=== PATIENT | female | born 2000 | race Caucasian/White ===

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

== ENCOUNTER → 2022-09-16 16:29 | Outpatient (CLI) | payer OTHER, SELFPAY ==
[2022-09-18 08:18] LABS: Progesterone 9.4 ng/mL (.)
== END ==
PROVIDERS: PCP Pediatrics; Visit Provider Obstetrics & Gynecology
DX: N97.9 Female infertility, unspecified (principal)
CPT/HCPCS: 36415; 84144

== ENCOUNTER → 2022-10-18 11:46 | Outpatient (CLI) | payer OTHER, SELFPAY ==
[2022-10-18 14:09] LABS: HCG,Quantitative 23 mIU/ml (0-5.42)
== END ==
PROVIDERS: PCP Pediatrics; Visit Provider Obstetrics & Gynecology
DX: N92.6 Irregular menstruation, unspecified (principal); Z32.00 Encounter for pregnancy test, result unknown
CPT/HCPCS: 36415; 84702

== ENCOUNTER → 2022-10-25 07:17 | Outpatient (CLI) | payer OTHER, SELFPAY ==
[2022-10-25 08:19] LABS: HCG,Quantitative 605 mIU/ml (0-5.42)
== END ==
PROVIDERS: PCP Pediatrics; Visit Provider Obstetrics & Gynecology
DX: Z34.90 Encounter for supervision of normal pregnancy, unspecified, unspecified trimester (principal)
CPT/HCPCS: 36415; 84702

== ENCOUNTER 2022-11-08 13:55 | Emergency (ER) | payer OTHER, SELFPAY ==
[2022-11-08 14:15] VITALS: BP 148/82; PULSE 117; RESP 20; TEMP 37; O2SAT 97; BMI 37.1
[2022-11-08 14:30] LABS: Microscopic, Urine URINE MICROSCOPIC (MICROSCOPIC)
[2022-11-08 14:35] LABS: Appearance,Urine CLEAR (Clear); Bilirubin,Urine Negative (Negative); Blood, Urine 1+ (Negative); Color,Urine YELLOW (Yellow); Glucose,Urine (UA) Negative (Negative); Ketones,Urine Negative (Negative); Leukocyte Esterase,Urine 1+ (Negative); Nitrate,Urine Negative (Negative); Protein,Urine Negative (Negative); Urobilinogen,Urine 0.2 EU/dl (0.2)
[2022-11-08 14:36] LABS: Urine Pregnancy, HCG Qual. Positive (Negative)
--- NOTE | 2022-11-08 14:39 | PC.NURSE ---
ZARINA KITCHEN at for patient eval
--- NOTE | 2022-11-08 14:43 | US_ITS ---
FINAL REPORT TECHNIQUE: Transvaginal ultrasound imaging of the pelvis was obtained. 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 Two intrauterine gestational sacs are seen in the right cornu. One gestational sac contains a pole with crown-rump length of 5.8 mm consistent with 6 weeks 3 days gestation. Heart rate is identified at 134 beats per minute. The 2nd gestational sac demonstrates no yolk sac or pole consistent with blighted ovum or failed . There is a 1.5 cm right ovarian cyst. There is no free fluid. IMPRESSION: Two gestational sacs within the right cornu with a single, living intrauterine identified. Reviewed, Interpreted and Dictated by Allen Higgins III, MD Transcribed by Radha Dunn Authenticated and [facility]
--- NOTE | 2022-11-08 14:45 | PC.NURSE ---
RADIOLOGY NOTIFIED OF US
--- NOTE | 2022-11-08 14:50 | PC.NURSE ---
PT TO RADIOLOGY AT THIS TIME
--- NOTE | 2022-11-08 14:52 | PC.NURSE ---
PT TRANSPORTED TO ULTRASOUND VIA WHEELCHAIR.
--- NOTE | 2022-11-08 15:12 | HMH.EDGENADL ---
Discharge Plan Disposition Patient Disposition: Home, Self-Care Condition: Good Prescriptions Prescriptions: New cefdinir 300 mg capsule 300 mg PO BID 5 Days Qty: 10 0RF No Action Classic 28 mg iron- 800 mcg tablet 1 tab PO DAILY Qty: 90 2RF nystatin 30 GM cream 1 applicatio topical BID 14 Days Qty: 1 2RF Referrals Follow up/Referrals: Mingo Limon [Primary Care Provider] - See instructions Clinical Impressions Clinical Impression: Instructions Patient Instructions: Early Bleeding Discharge ED Provider: Ja Garibay General Adult HPI General Chief complaint: Vaginal Bleeding Stated complaint: cramping, approx 8 weeks Time Seen by Provider: 11/08/22 14:20 Mode of Arrival: Ambulatory Source of Information: Patient Limitations: No Limitations Description of Symptoms (Recalled from ER Triage Doc. by RN): PT STATES SHE WOKE UP WITH CRAMPING IN HER LOWER ABDOMINAL REGION, DENIES ANY VAGINAL BLEEDING BUT STATES HER DISCHARGE IS DARKER THAN NORMAL, THINKS SHE'S AROUND 8-9 WEEKS , LAST KNOWN PERIOD 09/26/22 History of Present Illness HPI narrative: Patient is a 22-year-old female with a history of a bicornate uterus who presents with concern for cramping. She is a . She thinks that she is around 8 to 9 weeks . She says that she woke up this morning with some lower abdominal cramping. She denies any new vaginal bleeding but noted that some discharge was darker than normal. She locates the cramping in her suprapubic region. Does not radiate from there. No dysuria. No nausea or vomiting. No diarrhea. No fever or chills. Related Data Previous Rx's Medication Instructions Recorded nystatin 100,000 unit/gram topical 1 applicatio topical BID 14 days 03/08/21 cream #1 tube vits no.126-ferrous fum 1 tab PO DAILY #90 tabs 01/18/22 28 mg iron-folic acid 800 mcg tablet (Classic ) cefdinir 300 mg capsule 300 mg PO BID 5 days #10 caps 11/08/22 Allergies Allergy/AdvReac Type Severity Reaction Status Date / Time No Known Allergies Allergy Verified 09/16/22 14:11 [facility] Disclaimer: The information contained in this section may have been updated after the patient was seen, as this information can be updated by other users. Medical History (Updated 11/08/22 @ 17:23 by Ja Garibay MD) Bicornuate uterus Infertility Social History Smoking Status: Never smoker alcohol intake: never current occupational status: employed Travel in the last 8 weeks: None ROS Obtained: Yes All systems reviewed & no additional complaints except as documented A 14 point review of system was obtained and otherwise negative except per HPI Physical Exam General General appearance: alert and in no apparent distress Head Head exam: atraumatic, normocephalic and normal inspection Eye Eye exam: Present normal appearance, PERRL and EOMI ENT ENT exam: Present normal exam, normal oropharynx, mucous membranes moist, TM's normal bilaterally and normal external ear exam Neck Neck exam: Present normal inspection, full ROM and trachea midline; Absent meningismus or lymphadenopathy Chest Chest inspection: Present normal inspection and symmetric chest wall rise; Absent tenderness Respiratory Respiratory exam: Present normal lung sounds bilaterally; Absent respiratory distress Cardiovascular Cardiovascular exam: Present regular rate and normal rhythm; Absent JVD Abdominal Exam Abdominal exam: Present soft, tenderness and normal bowel sounds; Absent distention or guarding Abdominal tenderness: Present suprapubic Extremities Exam Extremities exam: Present normal inspection, full ROM and normal capillary refill; Absent calf tenderness Back Exam Back exam: Present normal inspection; Absent tenderness Neurological Exam Neurological exam: Present alert and oriented X3
--- NOTE | 2022-11-08 15:29 | PC.NURSE ---
PT RETURNED FROM ULTRASOUND.
--- NOTE | 2022-11-08 15:32 | PC.NURSE ---
PT RETURNED FROM RADIOLOGY, DR. TOMPKINS AT BEDSIDE
[2022-11-08 15:44] LABS: Bacteria,Urine Trace /lpf; RBC,Urine Occasional #/hpf (0-3)
[2022-11-08 15:53] VITALS: BP 122/63; PULSE 119; O2SAT 100
--- NOTE | 2022-11-08 15:56 | PC.NURSE ---
PROVIDED PT WITH WARM BLANKET.
--- NOTE | 2022-11-08 15:58 | PC.NURSE ---
CALLED LAB TO LET THEM KNOW PT IS BACK FROM ULTRASOUND SO THEY CAN COME DOWN AND DRAW HER BLOOD.
[2022-11-08 16:00] VITALS: BP 109/58; PULSE 92; O2SAT 99
--- NOTE | 2022-11-08 16:17 | PC.NURSE ---
LAB AT BEDSIDE
[2022-11-08 16:30] VITALS: BP 103/60; PULSE 97; O2SAT 98
[2022-11-08 17:00] VITALS: BP 101/51; PULSE 92; O2SAT 99
[2022-11-08 17:39] VITALS: BP 117/51; PULSE 99; RESP 17; TEMP 36.7; O2SAT 98
== END 2022-11-08 17:40 | disposition home or self-care (01) ==
PROVIDERS: Emergency Provider Student in an Organized Health Care Education/Training Program; PCP Pediatrics
DX: O20.9 Hemorrhage in early pregnancy, unspecified (principal); Z3A.08 8 weeks gestation of pregnancy; Q51.3 Bicornate uterus
CPT/HCPCS: 36415; 76817; 81001; 81025; 86900; 86901; 87086; 99284

== ENCOUNTER → 2022-11-12 12:52 | Outpatient (CLI) | payer OTHER, SELFPAY ==
--- NOTE | 2022-11-12 12:52 | US_ITS ---
FINAL REPORT CLINICAL HISTORY: for dates COMPARISON: November 08, 2022 FINDINGS: Sonographic images of the pelvis were obtained. Two gestational sacs are present in the uterus. No pole is identified in 1 of the sacs consistent with a failed . A single, living intrauterine is noted in the 2nd gestational sac. A yolk sac is present and measures 0.42 cm. [place] to rump length measures 9.7 cm which corresponds to 7 weeks 1 days gestation. Heartbeat is identified and measures 149 beats per minute. The right ovary measures 3.2 cm with a 1.5 cm cyst. The left ovary measures 2.7 cm with small follicles. Note is made of a bicornuate uterus as a variant. IMPRESSION: Two gestational sacs present with a single, living, intrauterine gestation within 1 of the sacs with 7 weeks 1 days gestational age. Findings are similar to the prior exam. Reviewed, Interpreted and Dictated by Allen Higgins III, MD Transcribed by Margarita Jain Authenticated and [facility]
== END ==
PROVIDERS: PCP Pediatrics; Visit Provider Obstetrics & Gynecology
DX: Z34.90 Encounter for supervision of normal pregnancy, unspecified, unspecified trimester (principal)
CPT/HCPCS: 76801

== ENCOUNTER → 2022-11-12 16:31 | Outpatient (CLI) | payer OTHER, SELFPAY ==
[2022-11-16 04:13] LABS: Neisseria gonorrhoeae, NAA Negative (Negative)
== END ==
PROVIDERS: Visit Provider Obstetrics & Gynecology
DX: Z34.90 Encounter for supervision of normal pregnancy, unspecified, unspecified trimester (principal)
CPT/HCPCS: 87491; 87591

== ENCOUNTER → 2022-11-26 12:35 | Outpatient (CLI) | payer OTHER, SELFPAY ==
--- NOTE | 2022-11-26 12:36 | US_ITS ---
FINAL REPORT CLINICAL HISTORY: 2 week follow up COMPARISON: November 12, 2022 FINDINGS: TRANSABDOMINAL ULTRASOUND, Two gestational sacs are present. One of the gestational sacs does not have a yolk sac or pole consistent with failed , stable. No other yolk sac as a pole with crown-rump length of 22 mm consistent with 8 weeks 6 days gestation. A heartbeat is confirmed at 179 beats per minute. Note is made of a bicornuate uterus. IMPRESSION: Single living IUP with estimated gestational age of 8 weeks 6 days days. Second gestational sac empty consistent with failed . Reviewed, Interpreted and Dictated by Allen Higgins III, MD Transcribed by Jg Marsh Authenticated and [facility]
== END ==
PROVIDERS: PCP Pediatrics; Visit Provider Obstetrics & Gynecology
DX: Q51.3 Bicornate uterus (principal)
CPT/HCPCS: 76801

== ENCOUNTER 2022-11-27 11:37 | Emergency (ER) | payer OTHER, SELFPAY ==
--- NOTE | 2022-11-27 13:04 | EXP.UTC ---
Discharge Plan Disposition Patient Disposition: Home, Self-Care Condition: Good Prescriptions Prescriptions: No Action Classic 28 mg iron- 800 mcg tablet 1 tab PO DAILY Qty: 90 2RF buspirone 10 mg tablet 10 mg PO BID loratadine 10 mg tablet 10 mg PO DAILY escitalopram oxalate [Lexapro] 20 mg tablet 20 mg PO DAILY ondansetron 8 mg tablet,disintegrating 8 mg PO Q12H PRN (Reason: nausea and vomiting) Qty: 30 2RF Referrals Follow up/Referrals: Mingo Limon [Primary Care Provider] - See instructions Activity Restrictions/Add. Instructions Additional Instructions/Restrictions: Drink plenty of fluids. Take tylenol for pain or fever. Follow up with your regular doctor. 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 Clinical Impressions Clinical Impression: Acute viral syndrome Stand Alone Forms Stand Alone Forms: Work/School Release Instructions Patient Instructions: DI for Viral Syndrome Discharge ED Provider: Dustin Aguila [facility] HPI General Stated complaint: Fever,Cough Time Seen by Provider: 11/27/22 13:04 History of Present Illness Provider Complaint: She c/o fever, chills, and a cough for the past 1 day. She is 9 weeks . She denies shortness of breath, but she does have a history of asthma. Related Data Home Medications Medication Instructions Recorded Confirmed buspirone 10 mg tablet 10 mg PO BID 11/12/22 11/12/22 escitalopram oxalate 20 mg tablet 20 mg PO DAILY 11/12/22 11/12/22 (Lexapro) loratadine 10 mg tablet 10 mg PO DAILY 11/12/22 11/12/22 Previous Rx's Medication Instructions Recorded vits no.126-ferrous fum 1 tab PO DAILY #90 tabs 01/18/22 28 mg iron-folic acid 800 mcg tablet (Classic ) ondansetron 8 mg disintegrating 8 mg PO Q12H PRN nausea and 11/12/22 tablet vomiting #30 tabs Allergies Allergy/AdvReac Type Severity Reaction Status Date / Time No Known Allergies Allergy Verified 11/27/22 13:19 [facility] Disclaimer: The information contained in this section may have been updated after the patient was seen, as this information can be updated by other users. Medical History Bicornuate uterus Infertility Social History Smoking Status: Never smoker alcohol intake: never current occupational status: employed Travel in the last 8 weeks: None ROS Obtained: Yes All systems reviewed & no additional complaints except as documented Constitutional Constitutional: Reports chills and Reports fever(s) Eyes Eyes: Denies eye discharge ENT Ears, Nose, Mouth, and Throat: Reports as per HPI Cardiovascular Cardiovascular: Denies chest pain Respiratory Respiratory: Denies chest congestion and Reports cough Gastrointestinal Gastrointestingal: Reports nausea; Denies abdominal pain, constipation, cramping, diarrhea or vomiting Musculoskeletal Musculoskeletal: Denies arthralgias Integumentary/Breasts Skin/Breast: Denies rash Neurologic Neurologic: Denies paresthesias Physical Exam General General appearance: alert and in no apparent distress Head Head exam: atraumatic, normocephalic and normal inspection Eye Eye exam: Present normal appearance, PERRL and EOMI ENT ENT exam: Present normal exam, normal oropharynx, mucous membranes moist, TM's normal bilaterally and normal external ear exam Neck Neck exam: Present normal inspection, full ROM and trachea midline; Absent meningismus or lymphadenopathy Chest Chest inspection: Present normal inspection and symmetric chest wall rise; Absent tenderness Respiratory Respiratory exam: Present normal lung sounds bilaterally; Absent respiratory distress Cardiovascular Cardiovascular exam: Present regular rate and normal rhythm; Absent JVD Abdominal Exam Abdominal exam: Present soft and normal bowel sounds; Absent
[2022-11-27 13:17] VITALS: BP 103/59; PULSE 119; RESP 16; TEMP 37.3; O2SAT 95; BMI 39.4
[2022-11-27 13:17] LABS: UTC Influenza A Antigen Negative (Negative); UTC Strep Screen (Rapid) Negative (Negative)
[2022-11-27 13:18] LABS: UTC Influenza B Antigen Negative (Negative)
[2022-11-27 13:54] VITALS: BP 103/59; PULSE 119; RESP 16; TEMP 37.3
[2022-11-27 14:08] LABS: Adenovirus,PCR Not Detected (NotDetected); Bordetella Pertussis Not Detected (NotDetected); Chlamydophila Pneumoniae, PCR Not Detected (NotDetected); Coronavirus 229E Not Detected (NotDetected); Coronavirus NL63 Not Detected (NotDetected); Coronavirus OC43 Not Detected (NotDetected); Coronovirus HKU1,PCR Not Detected (NotDetected); Human Metapneumovirus Not Detected (NotDetected); Influenza A, PCR Not Detected (NotDetected); Influenza AH1, 2009 Not Detected (NotDetected); Influenza AH1, PCR Not Detected (NotDetected); Influenza AH3,PCR Not Detected (NotDetected); Influenza B, PCR Not Detected (NotDetected); Mycoplasma Pneumoniae, PCR Not Detected (NotDetected); Parainfluenza 1, PCR Not Detected (NotDetected); Parainfluenza 2, PCR Not Detected (NotDetected); Parainfluenza 3, PCR Not Detected (NotDetected); Parainfluenza 4, PCR Not Detected (NotDetected); Respiratory Syncytial Virus Not Detected (NotDetected); Rhinovirus/Enterovirus Not Detected (NotDetected)
[2022-11-27 15:38] LABS: Coronavirus 19, PCR Detected (NotDetected)
== END 2022-11-27 14:16 | disposition home or self-care (01) ==
PROVIDERS: Emergency Provider Nurse Practitioner Family; PCP Pediatrics
DX: U07.1 COVID-19 (principal); R50.9 Fever, unspecified; R05.9 Cough, unspecified
CPT/HCPCS: 87581; 87632; 87798; 87804; 87880; 99212; C9803; G0463; U0003; U0005

== ENCOUNTER → 2022-12-07 10:01 | Outpatient (CLI) | payer OTHER, SELFPAY ==
[2022-12-07 11:05] LABS: Basophils # 0.1 K/mm3 (0-0.2); Basophils % 0.8 % (0.1-2.0); Eosinophils # 0.1 K/mm3 (0.0-0.4); Eosinophils % 0.6 % (0.1-12.0); Hemoglobin 12.9 g/dL (12.2-16.2); Lymphocytes # 2.3 K/mm3 (0.7-4.5); Lymphocytes % 23.3 % (10-50); Mean Corpuscular HGB Conc 32.9 g/dL (31.8-35.4); Mean Corpuscular Hemoglobin 31.3 pg (27.0-31.2); Mean Platelet Volume 8.9 fl (7.4-10.4); Monocytes # 0.5 K/mm3 (0.1-1.0); Monocytes % 4.9 % (1.7-9.3); Neutrophils # 6.9 K/mm3 (1.8-7.8); Neutrophils % 70.3 % (37.0-80.0); Platelet Count 196 K/mm3 (142-424); Red Blood Count 4.11 M/mm3 (4.20-5.40); Red Cell Distribution Width 13.4 % (11.5-17.5); White Blood Count 9.8 K/mm3 (4.5-13.0)
[2022-12-08 10:12] LABS: HIV Screen 4th Generation wRfx Non Reactive (Non Reactive); Rubella Antibodies, IgG 3.39 index (Immune >0.99)
[2022-12-08 12:59] LABS: Rapid Plasma Reagin Ab Titer Non Reactive (NonRea<1:1)
[2022-12-08 23:59] LABS: Hepatitis B Surface Antigen NEGATIVE; Hepatitis C Antibody 0.1
== END ==
PROVIDERS: PCP Pediatrics; Visit Provider Obstetrics & Gynecology
DX: Z34.90 Encounter for supervision of normal pregnancy, unspecified, unspecified trimester (principal); Z3A.01 Less than 8 weeks gestation of pregnancy
CPT/HCPCS: 36415; 85025; 86593; 86703; 86762; 86850; 87340; 87380; G0432

== ENCOUNTER 2023-03-19 20:24 | Outpatient (CLI) | payer OTHER, SELFPAY ==
[2023-03-19 20:35] VITALS: BMI 40.7
[2023-03-19 21:04] LABS: Microscopic, Urine URINE MICROSCOPIC (MICROSCOPIC)
[2023-03-19 21:08] LABS: Appearance,Urine SL CLOUDY (Clear); Bilirubin,Urine Negative (Negative); Blood, Urine Negative (Negative); Color,Urine YELLOW (Yellow); Glucose,Urine (UA) Negative (Negative); Ketones,Urine 1+ (Negative); Leukocyte Esterase,Urine 1+ (Negative); Nitrate,Urine Negative (Negative); Protein,Urine Negative (Negative); Urobilinogen,Urine 0.2 EU/dl (0.2)
[2023-03-19 21:16] VITALS: BP 126/77; PULSE 107; RESP 18; TEMP 37.2; O2SAT 97; BMI 40.7
[2023-03-19 21:20] LABS: Barbiturates Screen,Urine Negative ng/ml (<200)
[2023-03-19 21:21] LABS: Amphetamine/Metha Screen,Urine Negative ng/ml (<1000); Benzodiazepines Screen,Urine Negative ng/ml (<200)
[2023-03-19 21:22] LABS: Cocaine Screen,Urine Negative ng/ml (<300); Methadone Screen,Urine Negative ng/ml (<300)
[2023-03-19 21:23] LABS: Cannabinoid Screen,Urine Negative ng/ml (<50)
[2023-03-19 21:24] LABS: Opiate Screen,Urine Negative ng/ml (<300); Phencyclidine Screen,Urine Negative ng/ml (<25)
[2023-03-19 21:29] LABS: Bacteria,Urine 2+ /lpf
[2023-03-19 21:30] LABS: RBC,Urine Occasional #/hpf (0-3)
== END 2023-03-19 22:30 | disposition home or self-care (01) ==
LOC: OBOUT 20:28 → OB 20:29
PROVIDERS: PCP Pediatrics; Visit Provider Obstetrics & Gynecology
DX: O26.892 Other specified pregnancy related conditions, second trimester (principal); Z3A.24 24 weeks gestation of pregnancy; R10.9 Unspecified abdominal pain
CPT/HCPCS: 59025; 80305; 81001; 87086; 96365; G0463

== ENCOUNTER → 2023-03-25 08:06 | Outpatient (CLI) | payer OTHER, SELFPAY ==
[2023-03-25 08:44] LABS: Glucose,Fasting 115 mg/dl (74-100)
[2023-03-25 10:26] LABS: Glucose 1 Hour 206 mg/dL (74-100)
== END ==
PROVIDERS: PCP Pediatrics; Visit Provider Obstetrics & Gynecology
DX: Z34.90 Encounter for supervision of normal pregnancy, unspecified, unspecified trimester (principal); Z3A.25 25 weeks gestation of pregnancy
CPT/HCPCS: 36415; 82951

== ENCOUNTER 2023-03-28 17:11 | Outpatient (CLI) | payer OTHER, SELFPAY ==
[2023-03-28 17:24] VITALS: BMI 39.2
[2023-03-28 17:41] VITALS: BP 117/62; PULSE 97; RESP 18; TEMP 36.6; O2SAT 95; BMI 39.2
[2023-03-28 18:02] LABS: Microscopic, Urine URINE MICROSCOPIC (MICROSCOPIC)
[2023-03-28 18:07] LABS: Appearance,Urine CLEAR (Clear); Bilirubin,Urine Negative (Negative); Blood, Urine Negative (Negative); Color,Urine YELLOW (Yellow); Glucose,Urine (UA) Negative (Negative); Ketones,Urine Negative (Negative); Leukocyte Esterase,Urine 2+ (Negative); Nitrate,Urine Negative (Negative); Protein,Urine Negative (Negative)
[2023-03-28 18:07] LABS: POC Glucose,Bedside 88 (70-110)
[2023-03-28 18:20] LABS: Barbiturates Screen,Urine Negative ng/ml (<200); Benzodiazepines Screen,Urine Negative ng/ml (<200)
[2023-03-28 18:21] LABS: Amphetamine/Metha Screen,Urine Negative ng/ml (<1000)
[2023-03-28 18:22] LABS: Cannabinoid Screen,Urine Negative ng/ml (<50); Cocaine Screen,Urine Negative ng/ml (<300)
[2023-03-28 18:23] LABS: Methadone Screen,Urine Negative ng/ml (<300)
[2023-03-28 18:24] LABS: Opiate Screen,Urine Negative ng/ml (<300); Phencyclidine Screen,Urine Negative ng/ml (<25)
[2023-03-28 18:29] LABS: Renal Epithelial Cells,Urine Occasional #/lpf (0); WBC,Urine TNTC #/hpf (0-3)
[2023-03-28 18:30] LABS: Bacteria,Urine 3+ /lpf
--- NOTE | 2023-03-28 19:20 | EXP.ACUTE.PN ---
Subjective *Date: 03/28/23 *Time: 19:20 Interval history: She is a 22-year-old 1 para 0 at 26 and 2 weeks gestational age. She came in with some upper abdominal discomfort. She has had an otherwise uncomplicated . She does not appear to be in any distress. She is pointing to her right upper quadrant where her discomfort is. Nonstress test is reactive. She does not have any contractions. Medical Exam Vital signs and Labs for Last 24 Hours: Vital Signs Temp Pulse Resp BP Pulse Ox 03/28/23 17:41 97.9 F 97 H 18 117/62 95 Intake and Output 03/28/23 03/28/23 03/28/23 03:59 11:59 19:59 Other: Weight 194 lb Patient Weight 03/29/23 11:59 Weight 194 lb Laboratory Results - last 24 hr 03/28/23 17:22: Urine Color Yellow, Urine Appearance Clear, Urine pH 7.0, Ur Specific [place] 1.010, Urine Protein Negative, Urine Glucose (UA) Negative, Urine Ketones Negative, Urine Blood Negative, Urine Nitrate Negative, Urine Bilirubin Negative, Urine Urobilinogen 1.0, Ur Leukocyte Esterase 2+ A, Urine RBC None, Urine WBC Tntc, Ur Squamous Epith Cells 10-20, Ur Renal Epithelial Cell Occasional, Urine Bacteria 3+ 03/28/23 17:22: Urine Opiates Screen Negative, Urine Methadone Screen Negative, Ur Barbituates Screen Negative, Ur Phencyclidine Scrn Negative, Ur Amphetamines Screen Negative, U Benzodiazepines Scrn Negative, Urine Cocaine Screen Negative, U Marijuana (THC) Screen Negative 03/28/23 17:59: POC Glucose 88 I & O for Labs for Last 24 Hours: Intake & Output 03/26/23 03/27/23 03/28/23 03/29/23 11:59 11:59 11:59 11:59 Weight 194 lb Constitutional: Present no acute distress and obese Head: Present atraumatic Respiratory: Present normal respiratory effort; Absent accessory muscle use GI: Present tenderness (She has some right upper quadrant tenderness) and Alves's sign; Absent guarding or rigidity Rectal (female): Present deferred (female): Present deferred Assessment and Plan *Assessment and plan (1) Obesity affecting : Status: Acute Category: Medical Code(s): O99.210 - Obesity complicating , unspecified trimester (2) Right upper quadrant pain: Status: Acute Category: Medical Code(s): R10.11 - Right upper quadrant pain (3) Urinary tract infection affecting care of mother in second trimester, antepartum: Status: Acute Category: Medical Code(s): O23.42 - Unspecified infection of urinary tract in , second trimester Plan Her urinalysis shows 2+ leuk esterase plus too numerous to count white blood cells. She has received a liter of fluid as well as 2 g of Ancef. She is tender over her gallbladder and I suspect that she may have gallbladder disease. We will make arrangements for her to have an outpatient ultrasound. She has an appoint with Dr. Mills next Tuesday and will get the ultrasound the same day as her appointment. She will call the office tomorrow to set up the ultrasound.
== END 2023-03-28 20:25 | disposition home or self-care (01) ==
LOC: OBOUT 17:13 → OB 17:14
PROVIDERS: PCP Pediatrics; Visit Provider Nurse Practitioner Obstetrics & Gynecology
DX: O99.210 Obesity complicating pregnancy, unspecified trimester (principal); R10.11 Right upper quadrant pain; O23.42 Unspecified infection of urinary tract in pregnancy, second trimester; Z3A.26 26 weeks gestation of pregnancy
CPT/HCPCS: 80305; 81001; 82962; 87086; J2505

== ENCOUNTER 2023-04-06 18:01 | Outpatient (CLI) | payer OTHER, SELFPAY ==
[2023-04-06 18:31] VITALS: BMI 39.2
[2023-04-06 18:44] LABS: Microscopic, Urine URINE MICROSCOPIC (MICROSCOPIC)
[2023-04-06 18:49] VITALS: BP 119/64; PULSE 108; RESP 16; TEMP 36.9; O2SAT 96; BMI 39.2
[2023-04-06 19:00] LABS: Appearance,Urine SL CLOUDY (Clear); Bilirubin,Urine Negative (Negative); Blood, Urine 3+ (Negative); Color,Urine YELLOW (Yellow); Glucose,Urine (UA) Negative (Negative); Ketones,Urine Negative (Negative); Leukocyte Esterase,Urine 1+ (Negative); Nitrate,Urine Negative (Negative); Protein,Urine Negative (Negative); Specific Gravity, Urine 1.015 (1.005-1.030); Urobilinogen,Urine 0.2 EU/dl (0.2)
[2023-04-06 19:13] LABS: Amphetamine/Metha Screen,Urine Negative ng/ml (<1000)
[2023-04-06 19:14] LABS: Barbiturates Screen,Urine Negative ng/ml (<200); Benzodiazepines Screen,Urine Negative ng/ml (<200)
[2023-04-06 19:15] LABS: Cannabinoid Screen,Urine Negative ng/ml (<50); Cocaine Screen,Urine Negative ng/ml (<300)
[2023-04-06 19:16] LABS: Methadone Screen,Urine Negative ng/ml (<300)
[2023-04-06 19:17] LABS: Opiate Screen,Urine Negative ng/ml (<300)
[2023-04-06 19:18] LABS: Phencyclidine Screen,Urine Negative ng/ml (<25)
[2023-04-06 19:26] LABS: RBC,Urine 50-100 #/hpf (0-3)
[2023-04-06 19:27] LABS: Bacteria,Urine 1+ /lpf
== END 2023-04-06 20:32 | disposition home or self-care (01) ==
LOC: OBOUT 18:06 → OB 18:10
PROVIDERS: PCP Pediatrics; Visit Provider Obstetrics & Gynecology
DX: O26.892 Other specified pregnancy related conditions, second trimester (principal); Z3A.27 27 weeks gestation of pregnancy; R31.9 Hematuria, unspecified; R10.30 Lower abdominal pain, unspecified
CPT/HCPCS: 59025; 80305; 81001; 87086; 96365; 96367; G0463; J0696

== ENCOUNTER → 2023-04-07 07:45 | Outpatient (CLI) | payer OTHER, SELFPAY ==
--- NOTE | 2023-04-07 07:45 | US_ITS ---
FINAL REPORT TECHNIQUE: Multiple transverse and longitudinal images CLINICAL HISTORY: Right upper quadrant pain COMPARISON: None FINDINGS: The gallbladder shows no wall thickening, distention or stone disease. No biliary ductal dilatation is appreciated. No fluid collections are seen. Fatty infiltration of the liver is noted. There is moderate right hydronephrosis, likely physiologic. IMPRESSION: No evidence of acute gallbladder disease or biliary obstruction. Fatty liver. Moderate right hydronephrosis, likely physiologic. Reviewed, Interpreted and Dictated by Maureen Garrett MD Transcribed by Maya Kimbrough Authenticated and . [facility]
== END ==
PROVIDERS: PCP Pediatrics; Visit Provider Nurse Practitioner Obstetrics & Gynecology
DX: R10.11 Right upper quadrant pain (principal); Z3A.27 27 weeks gestation of pregnancy; O26.892 Other specified pregnancy related conditions, second trimester
CPT/HCPCS: 76705

== ENCOUNTER 2023-04-14 17:07 | Outpatient (CLI) | payer OTHER, SELFPAY ==
[2023-04-14 17:50] VITALS: BMI 39.7
[2023-04-14 18:00] LABS: Microscopic, Urine URINE MICROSCOPIC (MICROSCOPIC)
[2023-04-14 18:04] LABS: Appearance,Urine CLEAR (Clear); Bilirubin,Urine Negative (Negative); Blood, Urine Negative (Negative); Color,Urine YELLOW (Yellow); Glucose,Urine (UA) Negative (Negative); Ketones,Urine Negative (Negative); Leukocyte Esterase,Urine Negative (Negative); Nitrate,Urine Negative (Negative); PH,Urine 6.5 (5.0-8.5); Protein,Urine Negative (Negative); Specific Gravity, Urine 1.015 (1.005-1.030)
[2023-04-14 18:07] VITALS: BMI 39.7
[2023-04-14 18:16] LABS: Benzodiazepines Screen,Urine Negative ng/ml (<200)
[2023-04-14 18:17] LABS: Amphetamine/Metha Screen,Urine Negative ng/ml (<1000)
[2023-04-14 18:18] LABS: Barbiturates Screen,Urine Negative ng/ml (<200); Cannabinoid Screen,Urine Negative ng/ml (<50)
[2023-04-14 18:19] LABS: Cocaine Screen,Urine Negative ng/ml (<300); Methadone Screen,Urine Negative ng/ml (<300)
[2023-04-14 18:20] LABS: Opiate Screen,Urine Negative ng/ml (<300)
[2023-04-14 18:21] LABS: Phencyclidine Screen,Urine Negative ng/ml (<25)
[2023-04-14 18:50] LABS: Bacteria,Urine Trace /lpf; Squamous Epithelial Cell,Urine Occasional #/hpf (0-5); WBC,Urine Occasional #/hpf (0-3); Yeast,Urine 2+ /lpf
== END 2023-04-14 19:02 | disposition home or self-care (01) ==
LOC: OBOUT 17:09 → OB 17:13
PROVIDERS: PCP Pediatrics; Visit Provider Obstetrics & Gynecology
DX: O47.03 False labor before 37 completed weeks of gestation, third trimester (principal); Z3A.28 28 weeks gestation of pregnancy
CPT/HCPCS: 80305; 81001

== ENCOUNTER 2023-04-19 14:43 | Outpatient (CLI) | payer OTHER, SELFPAY ==
[2023-04-19 14:59] VITALS: BMI 38.9
[2023-04-19 15:24] LABS: Microscopic, Urine URINE MICROSCOPIC (MICROSCOPIC)
[2023-04-19 15:30] VITALS: BP 123/70; PULSE 99; RESP 18; TEMP 37.2; O2SAT 95; BMI 38.9
[2023-04-19 15:35] LABS: Appearance,Urine CLEAR (Clear); Blood, Urine TRACE-I (Negative); Color,Urine YELLOW (Yellow); Glucose,Urine (UA) Negative (Negative); Ketones,Urine TRACE (Negative); Leukocyte Esterase,Urine TRACE (Negative); Nitrate,Urine Negative (Negative); PH,Urine 6.5 (5.0-8.5); Protein,Urine TRACE (Negative); Specific Gravity, Urine 1.025 (1.005-1.030)
[2023-04-19 15:47] LABS: Barbiturates Screen,Urine Negative ng/ml (<200)
[2023-04-19 15:48] LABS: Benzodiazepines Screen,Urine Negative ng/ml (<200)
[2023-04-19 15:49] LABS: Amphetamine/Metha Screen,Urine Negative ng/ml (<1000)
[2023-04-19 15:50] LABS: Bilirubin,Urine Negative (Negative); Cannabinoid Screen,Urine Negative ng/ml (<50); Cocaine Screen,Urine Negative ng/ml (<300)
[2023-04-19 15:51] LABS: Bacteria,Urine Trace /lpf; Methadone Screen,Urine Negative ng/ml (<300); Opiate Screen,Urine Negative ng/ml (<300); Squamous Epithelial Cell,Urine Occasional #/hpf (0-5); WBC,Urine Occasional #/hpf (0-3)
[2023-04-19 15:52] LABS: Fetal Membrane Rupture (Rapid) Negative (Negative)
[2023-04-19 15:52] LABS: Phencyclidine Screen,Urine Negative ng/ml (<25)
== END 2023-04-19 16:05 | disposition home or self-care (01) ==
LOC: OBOUT 14:44 → OB 14:45
PROVIDERS: PCP Pediatrics; Visit Provider Nurse Practitioner Obstetrics & Gynecology
DX: O26.893 Other specified pregnancy related conditions, third trimester (principal); Z3A.29 29 weeks gestation of pregnancy
CPT/HCPCS: 59025; 80305; 81001; 84112; G0463

== ENCOUNTER 2023-04-24 20:57 | Outpatient (CLI) | payer OTHER, SELFPAY ==
[2023-04-24 20:59] VITALS: BP 115/72; PULSE 121; RESP 22; TEMP 37.2; O2SAT 95; BMI 39.6
[2023-04-24 21:54] LABS: Microscopic, Urine URINE MICROSCOPIC (MICROSCOPIC)
[2023-04-24 21:58] LABS: Appearance,Urine SL CLOUDY (Clear); Bilirubin,Urine Negative (Negative); Blood, Urine Negative (Negative); Color,Urine YELLOW (Yellow); Glucose,Urine (UA) Negative (Negative); Ketones,Urine Negative (Negative); Leukocyte Esterase,Urine Negative (Negative); Nitrate,Urine Negative (Negative); Protein,Urine Negative (Negative); Specific Gravity, Urine 1.015 (1.005-1.030)
[2023-04-24 22:10] VITALS: PULSE 103; TEMP 37.1
[2023-04-24 22:10] LABS: Amphetamine/Metha Screen,Urine Negative ng/ml (<1000); Benzodiazepines Screen,Urine Negative ng/ml (<200)
[2023-04-24 22:11] LABS: Barbiturates Screen,Urine Negative ng/ml (<200); Methadone Screen,Urine Negative ng/ml (<300)
[2023-04-24 22:12] LABS: Cannabinoid Screen,Urine Negative ng/ml (<50)
[2023-04-24 22:13] LABS: Cocaine Screen,Urine Negative ng/ml (<300); Opiate Screen,Urine Negative ng/ml (<300)
[2023-04-24 22:14] LABS: Amorphous Sediment,Urine Trace /lpf; Bacteria,Urine Trace /lpf; Phencyclidine Screen,Urine Negative ng/ml (<25)
== END 2023-04-24 22:14 | disposition home or self-care (01) ==
LOC: OBOUT 20:58 → OB 20:59
PROVIDERS: PCP Pediatrics; Visit Provider Nurse Practitioner Obstetrics & Gynecology
DX: O26.893 Other specified pregnancy related conditions, third trimester (principal); Z3A.30 30 weeks gestation of pregnancy
CPT/HCPCS: 59025; 80305; 81001

== ENCOUNTER → 2023-05-02 09:00 | Outpatient (CLI) | payer OTHER, SELFPAY | PROVIDERS: Visit Provider Obstetrics & Gynecology | DX: Z34.90 Encounter for supervision of normal pregnancy, unspecified, unspecified trimester (principal); B96.20 Unspecified Escherichia coli [E. coli] as the cause of diseases classified elsewhere | CPT/HCPCS: 87086; 87088; 87186 ==

== ENCOUNTER 2023-05-03 05:17 | Outpatient (CLI) | payer OTHER, SELFPAY ==
[2023-05-03 05:20] VITALS: BMI 39.9
[2023-05-03 05:39] VITALS: BP 134/88; PULSE 89; RESP 19; TEMP 36.8; O2SAT 96; BMI 39.9
[2023-05-03 05:42] LABS: Microscopic, Urine URINE MICROSCOPIC (MICROSCOPIC)
[2023-05-03 05:45] LABS: Appearance,Urine CLEAR (Clear); Bilirubin,Urine Negative (Negative); Blood, Urine TRACE-I (Negative); Color,Urine YELLOW (Yellow); Glucose,Urine (UA) Negative (Negative); Ketones,Urine Negative (Negative); Leukocyte Esterase,Urine Negative (Negative); Nitrate,Urine Negative (Negative); PH,Urine 6.5 (5.0-8.5); Protein,Urine Negative (Negative); Specific Gravity, Urine 1.025 (1.005-1.030)
[2023-05-03 05:49] LABS: Fetal Membrane Rupture (Rapid) Positive (Negative)
[2023-05-03 05:58] LABS: Bacteria,Urine 1+ /lpf; Barbiturates Screen,Urine Negative ng/ml (<200); RBC,Urine Occasional #/hpf (0-3)
[2023-05-03 05:59] LABS: Benzodiazepines Screen,Urine Negative ng/ml (<200)
[2023-05-03 06:00] LABS: Amphetamine/Metha Screen,Urine Negative ng/ml (<1000)
[2023-05-03 06:01] LABS: Cannabinoid Screen,Urine Negative ng/ml (<50); Cocaine Screen,Urine Negative ng/ml (<300)
[2023-05-03 06:02] LABS: Methadone Screen,Urine Negative ng/ml (<300); Opiate Screen,Urine Negative ng/ml (<300)
[2023-05-03 06:03] LABS: Phencyclidine Screen,Urine Negative ng/ml (<25)
[2023-05-03 06:34] VITALS: BP 121/60; PULSE 80
[2023-05-03 06:40] VITALS: BP 126/72; PULSE 91; RESP 18
[2023-05-03 06:44] VITALS: BP 138/88; PULSE 91; RESP 17
--- NOTE | 2023-05-03 06:45 | EXP.DC.SUM ---
General Admission date:: 05/03/2023 Discharge date: 05/03/23 HPI HPI HPI: She is a 23-year-old 1 para 0 at 31 and 2 weeks gestational age. She woke up this morning to use the restroom around 4:30 AM and when she stood up she was leaking fluid. She has not stopped leaking since then. She came to labor and delivery. She is known to have a bicornuate uterus and most recently has been diagnosed with gestational diabetes. She is taking glyburide 5 mg. On arrival here she was found to be 2 cm dilated. Her AmniSure was positive. She is not chau regularly. She is having an occasional contraction. Hospital Course Hospital Course Hospital Course: Bedside ultrasound revealed the fetus in the cephalic presentation. Amniotic fluid index was 6.5 cm. She received 2 g IV of ampicillin and 500 mg p.o. of azithromycin. She received 12 mg IM of [place] She received a 4 g bolus of magnesium sulfate and is currently getting 2 g an hour IV of magnesium sulfate. Her nonstress test is reactive and she is not having any contractions at this point in time. I spoke with Dr. Cary at the [facility] and he has accepted her in transfer. We will transfer her by ambulance to the [facility]. She will continue to receive 2 g an hour of magnesium sulfate. Exam Data for Last 24 hours Vital signs and Labs for Last 24 Hours: Temp Pulse Resp BP Pulse Ox 98.2 F 91 H 17 138/88 96 05/03/23 05:39 05/03/23 06:44 05/03/23 06:44 05/03/23 06:44 05/03/23 05:39 Laboratory Results - last 24 hr 05/03/23 05:25: Urine Color Yellow, Urine Appearance Clear, Urine pH 6.5, Ur Specific [employer] 1.025, Urine Protein Negative, Urine Glucose (UA) Negative, Urine Ketones Negative, Urine Blood Trace-i, Urine Nitrate Negative, Urine Bilirubin Negative, Urine Urobilinogen 1.0, Ur Leukocyte Esterase Negative, Urine RBC Occasional, Urine WBC 3-5, Urine Bacteria 1+ 05/03/23 05:25: Urine Opiates Screen Negative, Urine Methadone Screen Negative, Ur Barbituates Screen Negative, Ur Phencyclidine Scrn Negative, Ur Amphetamines Screen Negative, U Benzodiazepines Scrn Negative, Urine Cocaine Screen Negative, U Marijuana (THC) Screen Negative 05/03/23 05:25: Membrane Rupture Positive A I & O for Last 24 hours: Intake & Output 04/30/23 05/01/23 05/02/23 05/03/23 11:59 11:59 11:59 11:59 Weight 198 lb Constitutional Constitutional: no acute distress *Routine HEENT Exam Head: Present normocephalic *Routine Neck Exam Neck: Present supple and full ROM *Routine Respiratory Exam Respiratory: Present normal respiratory effort *Routine Abdominal Exam Abdominal: Present soft; Absent tenderness Comments: Uterus is gravid. Results Data Completed and Pending Labs on day of discharge: Labs from last 24 hours 05/03/23 05/03/23 05/03/23 05:25 05:25 05:25 Urine Color Yellow Urine Appearance Clear Urine pH 6.5 Ur Specific [employer] 1.025 Urine Protein Negative Urine Glucose (UA) Negative Urine Ketones Negative Urine Blood Trace-i Urine Nitrate Negative Urine Bilirubin Negative Urine Urobilinogen 1.0 Ur Leukocyte Esterase Negative Urine RBC Occasional Urine WBC 3-5 Urine Bacteria 1+ Membrane Rupture Positive A Urine Opiates Screen Negative Urine Methadone Screen Negative Ur Barbituates Screen Negative Ur Phencyclidine Scrn Negative Ur Amphetamines Screen Negative U Benzodiazepines Scrn Negative Urine Cocaine Screen Negative U Marijuana (THC) Screen Negative DS: Diagnosis Discharge Diagnosis (1) premature rupture of membranes: Status: Acute Code(s): O42.919 - premature rupture of membranes, unspecified as to length of time between rupture and onset of labor, unspecified trimester (2) White classification A2 gestational diabetes mellitus (GDM): Status: Acute Code(s): O24.419 - Gestational diabe
[2023-05-03 06:49] VITALS: BP 133/79; PULSE 96; RESP 19
[2023-05-03 06:55] VITALS: BP 136/75; PULSE 103; RESP 17
== END 2023-05-03 07:20 | disposition short-term general hospital (02) ==
LOC: OBOUT 05:19 → OB 05:20
PROVIDERS: PCP Pediatrics; Referring Provider Obstetrics & Gynecology; Visit Provider Nurse Practitioner Obstetrics & Gynecology
DX: O26.893 Other specified pregnancy related conditions, third trimester (principal); Z3A.31 31 weeks gestation of pregnancy; O42.919 Preterm premature rupture of membranes, unspecified as to length of time between rupture and onset of labor, unspecified trimester; O24.419 Gestational diabetes mellitus in pregnancy, unspecified control; O34.00 Maternal care for unspecified congenital malformation of uterus, unspecified trimester; Q51.3 Bicornate uterus
CPT/HCPCS: 59025; 80305; 81001; 84112; 96365; 96367; 96372; J0290

== ENCOUNTER 2024-06-06 21:45 | Emergency (ER) | payer OTHER, SELFPAY ==
[2024-06-06 21:45] VITALS: BP 125/74; PULSE 105; RESP 20; TEMP 36.9; O2SAT 98; BMI 34.3
--- NOTE | 2024-06-06 21:45 | [facility].EDCP ---
Discharge Plan Disposition Patient Disposition: Home, Self-Care Condition: Good Prescriptions Prescriptions: New sulfamethoxazole-trimethoprim [Bactrim DS] 800-160 mg tablet 1 tab PO BID 5 Days Qty: 10 0RF No Action Classic 28 mg iron- 800 mcg tablet 1 tab PO DAILY Qty: 90 2RF loratadine 10 mg tablet 10 mg PO DAILY escitalopram oxalate [Lexapro] 20 mg tablet 20 mg PO DAILY buspirone 15 mg tablet 15 mg PO BID medroxyprogesterone [Depo-Provera] 150 mg/mL suspension 150 mg IM [id number] Qty: 1 4RF Referrals Follow up/Referrals: Mingo Limon [Primary Care Provider] - See instructions Activity Restrictions/Add. Instructions Additional Instructions/Restrictions: Please keep your scheduled appointment with cardiology but notify them of today's ER visit in the morning. Please follow-up with your PCP within 48 hours. Return to ER for any worsening signs or symptoms as needed. Clinical Impressions Clinical Impression: Tachycardia Chest pain Qualifiers: Chest pain type: unspecified Qualified Code(s): R07.9 - Chest pain, unspecified Instructions Patient Instructions: Urinary Tract Infection, DI for Tachycardia, DI for Chest Pain Discharge ED Provider: Andrew Nunez HPI <YOHAN Nunez - Last Filed: 06/06/24 23:02> General Chief Complaint: Chest Pain Stated Complaint: Chest Pain Time Seen by Provider: 06/06/24 21:45 History of Present Illness HPI narrative: Patient presents for evaluation of dizziness and palpitations. Patient has approximately 2-month history of palpitations and he is currently undergoing cardiac workup including already completed Holter monitoring been seen by cardiology. 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 She denies loss of consciousness nausea vomiting diarrhea fever chills shortness of breath. Patient is does state that she has noticed her heart rate been 150-170 when she is symptomatic on her Apple watch. Related Data Home Medications Medication Instructions Recorded Confirmed escitalopram oxalate 20 mg tablet 20 mg PO DAILY 11/12/22 05/23/23 (Lexapro) loratadine 10 mg tablet 10 mg PO DAILY 11/12/22 05/23/23 buspirone 15 mg tablet 15 mg PO BID 03/25/23 05/23/23 Previous Rx's Medication Instructions Recorded vits no.126-ferrous fum 1 tab PO DAILY #90 tabs 01/18/22 28 mg iron-folic acid 800 mcg tablet (Classic ) medroxyprogesterone 150 mg/mL 150 mg IM [id number] #1 mL 05/23/23 intramuscular suspension (Depo-Provera) sulfamethoxazole 800 1 tab PO BID 5 days #10 tabs 06/06/24 mg-trimethoprim 160 mg tablet (Bactrim DS) Allergies Allergy/AdvReac Type Severity Reaction Status Date / Time No Known Allergies Allergy Verified 05/23/23 10:19 PFS <YOHAN Nunez - Last Filed: 06/06/24 23:02> [facility] Disclaimer: The information contained in this section may have been updated after the patient was seen, as this information can be updated by other users. Medical History Bicornuate uterus Bicornuate uterus affecting , antepartum Infertility premature rupture of membranes White classification A2 gestational diabetes mellitus (GDM) Surgical History History of wisdom tooth extraction, class I edentulism Family History Grandmother Cancer breast cancer Social History Smoking Status: Never smoker alcohol intake: never current occupational status: employed Travel in the last 8 weeks: None <YOHAN Nunez - Last Filed: 06/06/24 23:02> ROS Obtained: Yes Systems reviewed as appropriate & no additional complaints except as documented Physical Exam <YOHAN Nunez - Last Filed: 06/06/24 23:02> General General appearance: alert and in no apparent distress Head Head exam: atraumatic and normal inspection Eye Eye exam: Present normal appearance, PERRL and EOMI ENT ENT exam: Present normal exam, normal oropharynx and mucous membranes moist Neck Neck exam: Present normal inspection, full ROM and trachea midline; Absent lymphadenopathy Chest Chest inspection: Present normal inspection and symmetric chest wall rise Respiratory Respiratory exam: Present normal lung sounds bilaterally; Absent accessory muscle use Cardiovascular Cardiovascular exam: Present regular rate, normal rhythm, normal heart sounds, +S1 and +S2 Abdominal Exam Abdominal exam: Present soft and normal bowel sounds; Absent tenderness Extremities Exam Extremities exam: Present normal inspection and full ROM Back Exam Back exam: Present normal inspection and full ROM; Absent tenderness Neurological Exam Neurological exam: Present alert, oriented X3 and CN II-XII intact Psychiatric Psychiatric exam: Present normal affect and normal mood Skin Skin exam: Present warm, dry and normal color HEART Score <YOHAN Nunez - Last Filed: 06/06/24 23:02> HEART Score HEART Score assessment performed?: Yes History (anamnesis): Slightly suspicious ECG: Normal Age: <45 years Risk factors: 1-2 risk factors Troponin: </= normal limit HEART Score: 1 <Andrew Nunez MD - Last Filed: 06/07/24 18:34> HEART Score HEART Score: 1 Critical Care <YOHAN Nunez - Last Filed: 06/06/24 23:02> Critical Care Time Critical Care Time: No Medical Decision Making <YOHAN Nunez - Last Filed: 06/06/24 23:02> Medical Records Medical records reviewed: Yes I reviewed the patient's medical records. Lam Inquiry Pt receiving controlled substance: No Vital Signs Vital Signs: 06/06/24 21:45 06/06/24 21:50 06/06/24 23:10 Temperature 98.4 F 97.0 F L Temperature Source Oral Oral Pulse Rate 105 H 97 H Pulse Rate [Right Radial] 105 H Respiratory Rate 20 16 Blood Pressure 112/65 Blood Pressure [Right Arm] 125/74 Blood Pressure Mean [Right Arm] 91 Blood Pressure Source Automatic Cuff Blood Pressure Position Sitting 02 Sat by Pulse Oximetry 98 Oxygen Delivery Method Room Air Room Air Lab Data Lab results reviewed: Yes I reviewed the patient's lab results. Labs: Lab Results 06/06/24 21:53: WBC 10.1, RBC 4.29, Hgb 13.9, Hct 40.5, MCV 94.2, MCH 32.3 H, MCHC 34.3, RDW 14.0, Plt Count 210, MPV 9.1, Neut % (Auto) 51.8, Lymph % (Auto) 39.8, [place] % (Auto) 6.4, Eos % (Auto) 1.0, Baso % (Auto) 1.0, Neut # (Auto) 5.3, Lymph # (Auto) 4.0, [place] # (Auto) 0.7, Eos # (Auto) 0.1, Baso # (Auto) 0.1, PT 10.4, INR 0.92, Sodium 141, Potassium 3.8, Chloride 105, Carbon Dioxide 29, Anion Gap 10.8, BUN 11, Creatinine 0.90, Estimated Creat Clear 119, Estimated GFR 78, Est GFR ( Amer) 95, Glucose 90, Calcium 9.6, Magnesium 1.9, Total Bilirubin 0.3, AST 50 H, ALT 68, Alkaline Phosphatase 82, Troponin I < 0.01, Total Protein 7.6, Albumin 4.1, Globulin 3.5 H, Albumin/Globulin Ratio 1.2, TSH 2.94, Free T4 Index 2.6 L, Thyroxine (T4) 11.4 H, T3 Uptake 23 L, Serum HCG, Qual Negative 06/06/24 22:21: Urine Color [place], Urine Appearance Clear, Urine pH 6.0, Ur Specific [place] 1.025, Urine Protein Negative, Urine Glucose (UA) Negative, Urine Ketones Negative, Urine Blood 3+, Urine Nitrate Negative, Urine Bilirubin Negative, Urine Urobilinogen 0.2, Ur Leukocyte Esterase Trace, Urine RBC Tntc, Urine WBC 3-5, Ur Squamous Epith Cells 3-5, Urine Bacteria 1+ 06/06/24 21:53 06/06/24 21:53 Response Orders (Tests/Meds): ED MEDICATIONS Discontinued Medications Generic Name Dose Route Start Last Admin Trade Name Alejoq PRN Reason Stop Dose Admin Acetaminophen 1,000 mg 06/06/24 21:55 06/06/24 22:08 Acetaminophen 1,000mg/100ml Vial IV 06/06/24 21:56 1,000 mg ONCE ONE Administration Lactated Ringer's 1,000 mls @ 999 mls/hr 06/06/24 21:55 06/06/24 22:11 Lactated Ringer's 1000 Ml Bag IV 06/06/24 22:55 999 mls/hr .Q1H1M ONE Administration Ketorolac Tromethamine 15 mg 06/06/24 21:55 06/06/24 22:08 Ketorolac 30mg/Ml Vial IV 06/06/24 21:56 15 mg ONCE ONE Administration Ondansetron HCl 4 mg 06/06/24 21:55 06/06/24 22:08 Ondansetron 4mg/2ml Vial IV 06/06/24 21:56 4 mg ONCE ONE Administration Trimethoprim/Sulfamethoxazole 1 each 06/06/24 22:54 06/06/24 23:10 Sulfa/Trimethoprim 1 Tablet PO 06/06/24 22:55 1 each ONCE ONE Administration ORDERS Category Date Time Status Chest XR -- portable [XR chest portable] Stat Exams 06/06/24 21:56 Completed CBC w/Auto Diff [Complete Blood Count Auto Diff] Stat Lab 06/06/24 21:53 Completed CMP [Comprehensive Metabolic Panel] Stat Lab 06/06/24 21:53 Completed HCG Qualitative, Serum Stat Lab 06/06/24 21:53 Completed INR [Prothrombin Time INR] Stat Lab 06/06/24 21:53 Completed Magnesium Stat Lab 06/06/24 21:53 Completed Thyroid Panel Stat Lab 06/06/24 21:53 Completed Trop I [Troponin I] Stat Lab 06/06/24 21:53 Completed UA [Urinalysis and Microscopic] Stat Lab 06/06/24 22:21 Completed MDM Narrative Medical Decision Narrative: In summary patient is a 24-year-old female who presents to the emergency department for evaluation of chest pain and palpitations. Patient is normotensive but with a heart rate of 105 satting at 98% on room air with respiratory rate of 20 upon arrival, afebrile. Physical exam is otherwise unremarkable and nonfocal although she does have variable heart rate though appears to be sinus on the bedside monitor. Differential diagnosis includes orthostatic hypotension versus SVT versus cardiac arrhythmia etc. Initial workup will be conducted with hematologic labs twelve-lead EKG chest x-ray. Initial interventions include crystalloid bolus Toradol Tylenol. Initial workup reviewed by me shows that her hematologic labs are nonactionable including an undetectable troponin but does have evidence of bacteria and my informal interpretation of plain film chest x-ray shows no acute processes. Upon repeat evaluation patient is not currently having any symptoms and is normotensive tolerating oral intake ambulating with her power. Given this appropriate for discharge with close follow-up with cardiology to complete her workup. Patient will be given prescription for Bactrim with first dose given here for UTI. <Andrew Nunez MD - Last Filed: 06/07/24 18:34> Vital Signs Vital Signs: 06/06/24 21:45 06/06/24 21:50 06/06/24 23:10 Temperature 98.4 F 97.0 F L Temperature Source Oral Oral Pulse Rate 105 H 97 H Pulse Rate [Right Radial] 105 H Respiratory Rate 20 16 Blood Pressure 112/65 Blood Pressure [Right Arm] 125/74 Blood Pressure Mean [Right Arm] 91 Blood Pressure Source Automatic Cuff Blood Pressure Position Sitting 02 Sat by Pulse Oximetry 98 Oxygen Delivery Method Room Air Room Air Lab Data Labs: Lab Results 06/06/24 21:53: WBC 10.1, RBC 4.29, Hgb 13.9, Hct 40.5, MCV 94.2, MCH 32.3 H, MCHC 34.3, RDW 14.0, Plt Count 210, MPV 9.1, Neut % (Auto) 51.8, Lymph % (Auto) 39.8, [place] % (Auto) 6.4, Eos % (Auto) 1.0, Baso % (Auto) 1.0, Neut # (Auto) 5.3, Lymph # (Auto) 4.0, [place] # (Auto) 0.7, Eos # (Auto) 0.1, Baso # (Auto) 0.1, PT 10.4, INR 0.92, Sodium 141, Potassium 3.8, Chloride 105, Carbon Dioxide 29, Anion Gap 10.8, BUN 11, Creatinine 0.90, Estimated Creat Clear 119, Estimated GFR 78, Est GFR ( Amer) 95, Glucose 90, Calcium 9.6, Magnesium 1.9, Total Bilirubin 0.3, AST 50 H, ALT 68, Alkaline Phosphatase 82, Troponin I < 0.01, Total Protein 7.6, Albumin 4.1, Globulin 3.5 H, Albumin/Globulin Ratio 1.2, TSH 2.94, Free T4 Index 2.6 L, Thyroxine (T4) 11.4 H, T3 Uptake 23 L, Serum HCG, Qual Negative 06/06/24 22:21: Urine Color [place], Urine Appearance Clear, Urine pH 6.0, Ur Specific [place] 1.025, Urine Protein Negative, Urine Glucose (UA) Negative, Urine Ketones Negative, Urine Blood 3+, Urine Nitrate Negative, Urine Bilirubin Negative, Urine Urobilinogen 0.2, Ur Leukocyte Esterase Trace, Urine RBC Tntc, Urine WBC 3-5, Ur Squamous Epith Cells 3-5, Urine Bacteria 1+ Response Orders (Tests/Meds): ED MEDICATIONS Discontinued Medications Generic Name Dose Route Start Last Admin Trade Name Franck PRN Reason Stop Dose Admin Acetaminophen 1,000 mg 06/06/24 21:55 06/06/24 22:08 Acetaminophen 1,000mg/100ml Vial IV 06/06/24 21:56 1,000 mg ONCE ONE Administration Lactated Ringer's 1,000 mls @ 999 mls/hr 06/06/24 21:55 06/06/24 22:11 Lactated Ringer's 1000 Ml Bag IV 06/06/24 22:55 999 mls/hr .Q1H1M ONE Administration Ketorolac Tromethamine 15 mg 06/06/24 21:55 06/06/24 22:08 Ketorolac 30mg/Ml Vial IV 06/06/24 21:56 15 mg ONCE ONE Administration Ondansetron HCl 4 mg 06/06/24 21:55 06/06/24 22:08 Ondansetron 4mg/2ml Vial IV 06/06/24 21:56 4 mg ONCE ONE Administration Trimethoprim/Sulfamethoxazole 1 each 06/06/24 22:54 06/06/24 23:10 Sulfa/Trimethoprim 1 Tablet PO 06/06/24 22:55 1 each ONCE ONE Administration ORDERS Category Date Time Status Chest XR -- portable [XR chest portable] Stat Exams 06/06/24 21:56 Completed CBC w/Auto Diff [Complete Blood Count Auto Diff] Stat Lab 06/06/24 21:53 Completed CMP [Comprehensive Metabolic Panel] Stat Lab 06/06/24 21:53 Completed HCG Qualitative, Serum Stat Lab 06/06/24 21:53 Completed INR [Prothrombin Time INR] Stat Lab 06/06/24 21:53 Completed Magnesium Stat Lab 06/06/24 21:53 Completed Thyroid Panel Stat Lab 06/06/24 21:53 Completed Trop I [Troponin I] Stat Lab 06/06/24 21:53 Completed UA [Urinalysis and Microscopic] Stat Lab 06/06/24 22:21 Completed MDM Narrative Medical Decision Narrative: In summary patient is a 24-year-old female who presents to the emergency department for evaluation of chest pain and palpitations. Patient is normotensive but with a heart rate of 105 satting at 98% on room air with respiratory rate of 20 upon arrival, afebrile. Physical exam is otherwise unremarkable and nonfocal although she does have variable heart rate though appears to be sinus on the bedside monitor. Differential diagnosis includes orthostatic hypotension versus SVT versus cardiac arrhythmia etc. Initial workup will be conducted with hematologic labs twelve-lead EKG chest x-ray. Initial interventions include crystalloid bolus Toradol Tylenol. Initial workup reviewed by me shows that her hematologic labs are nonactionable including an undetectable troponin but does have evidence of bacteria and my informal interpretation of plain film chest x-ray shows no acute processes. Upon repeat evaluation patient is not currently having any symptoms and is normotensive tolerating oral intake ambulating with her power. Given this appropriate for discharge with close follow-up with cardiology to complete her workup. Patient will be given prescription for Bactrim with first dose given here for UTI. I was consulted by the SERGIO, and we discussed the complexity of the problems being addressed. I approved the treatment and management plan for this patient?s care in the Emergency Department, thus performing a substantive portion of the medical decision making. Andrew Nunez MD
--- NOTE | 2024-06-06 21:46 | ECG_ITS ---
APPROVED REPORT Exam: Resting ECG HR:90 bpm ECG Measurements Heart Rate 90 AXES VA 138 P 52 QRSd 89 QRS 38 QT 327 T 76 QTc 374 Conclusion SINUS RHYTHM Normal EKG Electronically signed by : TONY PETTY, 06/06/2024 22:02:38
[2024-06-06 21:50] VITALS: PULSE 105
--- NOTE | 2024-06-06 21:56 | XR_ITS ---
PROCEDURE INFORMATION: Exam: XR Chest Exam date and time: 06/06/2024 10:21 PM Age: 24 years old Clinical indication: Pain; Chest pressure; Additional info: Chest pain, palpitations TECHNIQUE: Imaging protocol: Radiologic exam of the chest. Views: 1 view. COMPARISON: No relevant prior studies available. FINDINGS: Lungs: No evidence of acute pulmonary disease or infiltrates Pleural spaces: No large effusion or pneumothorax. Heart/Mediastinum: No evidence of mediastinal widening or cardiac silhouette enlargement; the mediastinum and heart appear within normal limits for contour and size. Bones/joints: No evidence of acute osseous abnormalities within the visualized portions of the thoracic spine and ribs. Osseous structures appear appropriate for patient age. IMPRESSION: No dense parenchymal consolidation, pleural effusion, or pneumothorax.
[2024-06-06 22:06] LABS: Basophils # 0.1 K/mm3 (0-0.2); Eosinophils # 0.1 K/mm3 (0.0-0.4); Hematocrit 40.5 % (37.0-47.0); Hemoglobin 13.9 g/dL (12.2-16.2); Lymphocytes % 39.8 % (10-50); Mean Corpuscular HGB Conc 34.3 g/dL (31.8-35.4); Mean Corpuscular Hemoglobin 32.3 pg (27.0-31.2); Mean Corpuscular Volume 94.2 fl (81-99); Mean Platelet Volume 9.1 fl (7.4-10.4); Monocytes # 0.7 K/mm3 (0.1-1.0); Monocytes % 6.4 % (1.7-9.3); Neutrophils # 5.3 K/mm3 (1.8-7.8); Neutrophils % 51.8 % (37.0-80.0); Platelet Count 210 K/mm3 (142-424); Red Blood Count 4.29 M/mm3 (4.20-5.40); White Blood Count 10.1 K/mm3 (4.8-10.8)
[2024-06-06] MEDS: ONDANSETRON 4MG/2ML VIAL 4 MG IV (22:08)
[2024-06-06] MEDS: KETOROLAC 30MG/ML VIAL 15 MG IV (22:08)
[2024-06-06] MEDS: ACETAMINOPHEN 1,000MG/100ML VIAL 1000 MG IV (22:08)
[2024-06-06 22:10] LABS: Chloride 105 mmol/L (98-107); Sodium 141 mmol/L (136-145)
[2024-06-06 22:11] LABS: Potassium 3.8 mmoL/L (3.5-5.1)
[2024-06-06] MEDS: LACTATED RINGERS 1000ML 1,000 ML 999 ML IV (22:11)
[2024-06-06 22:13] LABS: Albumin Level 4.1 g/dl (3.5-5.0); Albumin/Globulin Ratio 1.2 (1.1-1.8); Alkaline Phosphatase 82 U/L (38-126); Anion Gap 10.8 mEq/L (5-15); Bilirubin,Total 0.3 mg/dl (0.2-1.3); Blood Urea Nitrogen 11 mg/dl (7-17); Calcium 9.6 mg/dl (8.4-10.2); Carbon Dioxide 29 mmol/L (22.0-30.0); Creatinine Clearance Estimated 119 mL/min (50-200); Estimated Glomerular Filt Rate 78 ml/min (>60); GFR (African American) 95 ML/MIN (>60); Globulin 3.5 g/dL (1.3-3.2); Glucose 90 mg/dl (74-100); Total Protein,Serum 7.6 g/dl (6.3-8.2)
[2024-06-06 22:14] LABS: Alanine Aminotransferase 68 U/L (12-78); Aspartate Amino Transferase 50 U/L (14-36); INR 0.92 (0.9-1.1); Magnesium 1.9 mg/dl (1.6-2.3); Prothrombin Time 10.4 seconds (10.1-12.5)
[2024-06-06 22:22] LABS: HCG Qualitative, Serum Negative (Negative)
[2024-06-06 22:27] LABS: Troponin I < 0.01 ng/ml (0.00-0.034)
[2024-06-06 22:29] LABS: Microscopic, Urine URINE MICROSCOPIC (MICROSCOPIC)
[2024-06-06 22:30] LABS: Triiodothryronine (T3) Uptake 23 % (23.5-40.5)
[2024-06-06 22:31] LABS: Free Thyroxine Index 2.6 ug/dL (5.93-13.13); T4 (Thyroxine) 11.4 ug/dl (5.53-11.0)
[2024-06-06 22:38] LABS: Appearance,Urine CLEAR (Clear); Bilirubin,Urine Negative (Negative); Blood, Urine 3+ (Negative); Color,Urine ORANGE (Yellow); Glucose,Urine (UA) Negative (Negative); Ketones,Urine Negative (Negative); Leukocyte Esterase,Urine TRACE (Negative); Nitrate,Urine Negative (Negative); Protein,Urine Negative (Negative); Specific Gravity, Urine 1.025 (1.005-1.030); Urobilinogen,Urine 0.2 EU/dl (0.2)
[2024-06-06 22:45] LABS: Thyroid Stimulating Hormone 2.94 uIU/mL (0.465-4.68)
[2024-06-06 22:47] LABS: Bacteria,Urine 1+ /lpf; RBC,Urine TNTC #/hpf (0-3)
[2024-06-06 23:10] VITALS: BP 112/65; PULSE 97; RESP 16; TEMP 36.1; O2SAT 98
[2024-06-06] MEDS: SULFA/TRIMETHOPRIM 1 TABLET 1 EACH PO (23:10)
== END 2024-06-06 23:11 | disposition home or self-care (01) ==
PROVIDERS: Physician Assistant; Emergency Provider Emergency Medicine; PCP Pediatrics
DX: R07.9 Chest pain, unspecified (principal); R00.0 Tachycardia, unspecified; N39.0 Urinary tract infection, site not specified; R42 Dizziness and giddiness
CPT/HCPCS: 71045; 80050; 80053; 81001; 83735; 84436; 84443; 84479; 84484; 84703; 85025; 85610; 93005; 96361; 96374; 96375; 99284; J0131; J1885; J2405; J7120

== ENCOUNTER 2025-01-29 16:55 | Outpatient (CLI) | payer OTHER, SELFPAY ==
[2025-01-29 20:04] LABS: HCG,Quantitative 39320 mIU/ml (0-5.42)
[2025-01-31 12:12] LABS: Progesterone 6.8 ng/mL (.)
== END 2025-01-29 23:59 | disposition home or self-care (01) ==
LOC: LAB 16:57
PROVIDERS: PCP Pediatrics; Visit Provider Nurse Practitioner Obstetrics & Gynecology
DX: Z32.01 Encounter for pregnancy test, result positive (principal)
CPT/HCPCS: 36415; 84144; 84702

== ENCOUNTER 2025-02-01 08:39 | Emergency (ER) | payer OTHER, SELFPAY ==
--- NOTE | 2025-02-01 08:50 | HMH.EDGENADL ---
Discharge Plan Disposition Patient Disposition: Home, Self-Care Prescriptions Prescriptions: New nitrofurantoin macrocrystal 100 mg capsule 100 mg PO BID 5 Days Qty: 10 0RF Rx Instructions: must administer with a meal/food No Action escitalopram oxalate [Lexapro] 20 mg tablet 20 mg PO DAILY buspirone 15 mg tablet 15 mg PO BID methylphenidate HCl 5 mg tablet 5 mg PO DAILY Patient Comments: Take 1 tablet by mouth Daily With Lunch. metformin 500 mg tablet extended release 24 hr 500 mg PO HS Patient Comments: Take 1 tablet by mouth Daily With Breakfast. bupropion HCl 300 mg tablet extended release 24 hr 300 mg PO DAILY Patient Comments: Take 1 tablet by mouth Daily. Referrals Follow up/Referrals: Mingo Limon MD [Primary Care Provider] - See instructions Activity Restrictions/Add. Instructions Additional Instructions/Restrictions: Follow-up with OB on Tuesday. Take antibiotics as prescribed for asymptomatic bacteriuria Clinical Impressions Clinical Impression: First trimester Print Language Print Language: Sami Discharge ED Provider: Ivonne Carlson General Adult HPI General Chief complaint: OB/Uterine Contractions Stated complaint: approx. 8 weeks , cramping Time Seen by Provider: 02/01/25 08:50 History of Present Illness HPI narrative: Patient is a 24-year-old female G2, P1 who presents emergency department for abdominal cramping. Last menstrual period approximately 8 weeks ago. Has not seen OB yet. Today developed uncomfortable cramping in the lower pelvis no vaginal bleeding. Physiologic discharge without malodorous discharge no dysuria or increased urinary frequency. No pain with intercourse. Some nausea without significant vomiting. Related Data Home Medications ?Medication ?Instructions ?Recorded ?Confirmed escitalopram oxalate 20 mg tablet 20 mg PO DAILY 11/12/22 02/01/25 (Lexapro) buspirone 15 mg tablet 15 mg PO BID 03/25/23 02/01/25 bupropion HCl 300 mg 24 hr tablet, 300 mg PO DAILY 02/01/25 02/01/25 extended release metformin 500 mg tablet,extended 500 mg PO HS 02/01/25 02/01/25 release 24 hr methylphenidate HCl 5 mg tablet 5 mg PO DAILY 02/01/25 02/01/25 Previous Rx's ?Medication ?Instructions ?Recorded nitrofurantoin macrocrystal 100 mg 100 mg PO BID 5 days #10 caps 02/01/25 capsule Allergies Allergy/AdvReac Type Severity Reaction Status Date / Time No Known Allergies Allergy Verified 05/23/23 10:19 [facility] Disclaimer: The information contained in this section may have been updated after the patient was seen, as this information can be updated by other users. Medical History Bicornuate uterus Bicornuate uterus affecting , antepartum Infertility premature rupture of membranes White classification A2 gestational diabetes mellitus (GDM) Surgical History History of wisdom tooth extraction, class I edentulism Family History Grandmother Cancer breast cancer Social History Smoking Status: Never smoker alcohol intake: never current occupational status: employed Travel in the last 8 weeks: None Have you lived/traveled outside US in past 30 days?: No Contact w/someone who lives/traveled outside US past 30 days?: No Exposure to someone with infectious disease in past 14 days?: No Do you have a fever (greater than 100.4 F or 38 C)?: No Have you tested positive for COVID-19: No Exposed to someone with COVID-19 in past 14 days?: No Do you have a sore throat?: No Do you have a cough?: No Do you have any weakness?: No Do you have any diarrhea?: No Are you experiencing any unusual bleeding?: No Do you have any muscle aches/pain?: No Do you have any abdominal pain?: No Are you experiencing loss of taste or smell?: No Other Medical History Have you received the Flu Vaccine for this season: No Have you received the Pneumonia Vaccine: No ROS Obtained: Yes All systems reviewed & no additional complaints except as documented Physical Exam General General appearance: alert and in no apparent distress Respiratory Respiratory exam: Absent respiratory distress Cardiovascular Cardiovascular exam: Present regular rate and normal rhythm Abdominal Exam Abdominal exam: Present soft; Absent distention or tenderness Back Exam Back exam: Present normal inspection; Absent tenderness Neurological Exam Neurological exam: Present alert and oriented X3 Psychiatric Psychiatric exam: Present normal affect Skin Skin exam: Present warm and dry Medical Decision Making Medical Records Screening: Per USPSTF and CDC recommendations, given the prevalence of disease in our region, it is our hospital?s policy to screen for HIV and viral Hepatitis for all patients aged 18 and over and those with ongoing risk factors. Lam Inquiry Pt receiving controlled substance: No Vital Signs: 02/01/25 08:56 02/01/25 08:57 02/01/25 09:15 Temperature 98.3 F Temperature Source Oral Pulse Rate 89 Pulse Rate [Radial] 98 H Respiratory Rate 16 18 Blood Pressure 126/77 117/66 Blood Pressure [Right Arm] 126/77 Blood Pressure Mean 81 Blood Pressure Mean [Right Arm] 93 Blood Pressure Source Blood Pressure Source [Right Arm] Automatic Cuff Blood Pressure Position Blood Pressure Position [Right Arm] Sitting 02 Sat by Pulse Oximetry 95 98 Oxygen Delivery Method Room Air 02/01/25 09:30 02/01/25 11:05 Temperature 98.3 F Temperature Source Oral Pulse Rate 109 H 88 Pulse Rate [Radial] Respiratory Rate 18 16 Blood Pressure 116/73 119/76 Blood Pressure [Right Arm] Blood Pressure Mean 82 Blood Pressure Mean [Right Arm] Blood Pressure Source Automatic Cuff Blood Pressure Source [Right Arm] Blood Pressure Position Sitting Blood Pressure Position [Right Arm] 02 Sat by Pulse Oximetry 97 Oxygen Delivery Method Room Air Lab Data Lab Results 02/01/25 08:45: Urine Color Yellow, Urine Appearance Clear, Urine pH 6.5, Ur Specific [place] 1.025, Urine Protein Negative, Urine Glucose (UA) Negative, Urine Ketones Negative, Urine Blood Negative, Urine Nitrate Negative, Urine Bilirubin Negative, Urine Urobilinogen 0.2, Ur Leukocyte Esterase 2+ A, Urine RBC Occasional, Urine WBC 10-20, Ur Squamous Epith Cells 5-10, Urine Bacteria 1+ 02/01/25 09:49: WBC 10.0, RBC 4.02 L, Hgb 12.6, Hct 36.4 L, MCV 90.5, MCH 31.3 H, MCHC 34.6, RDW 12.5, Plt Count 184, MPV 11.2 H, Neut % (Auto) 64.1, Lymph % (Auto) 28.9, [place] % (Auto) 5.6, Eos % (Auto) 0.5, Baso % (Auto) 0.4, Neut # (Auto) 6.4, Lymph # (Auto) 2.9, [place] # (Auto) 0.6, Eos # (Auto) 0.1, Baso # (Auto) 0.0, Sodium 138, Potassium 4.0, Chloride 106, Carbon Dioxide 24, Anion Gap 12.0, BUN 11, Creatinine 0.70, Estimated Creat Clear 77, Estimated GFR 105, Est GFR ( Amer) 127, Glucose 151 H, Calcium 8.8, Total Bilirubin 0.2, AST 31, ALT 31, Alkaline Phosphatase 74, Total Protein 6.6, Albumin 3.8, Globulin 2.8, Albumin/Globulin Ratio 1.4, HCG, Quant > 22915 H, HCV Ab GISELLE w/Rflx PCR Qn Negative, HIV Ag/Ab Combo Qual Negative 02/01/25 09:49 02/01/25 09:49 Orders (Tests/Meds): ORDERS Category Date Time Status POCUS Point of Care (ER Only) Stat Exams 02/01/25 08:59 Completed Complete Blood Count Auto Diff Stat Lab 02/01/25 09:49 Completed Comprehensive Metabolic Panel Stat Lab 02/01/25 09:49 Completed HCG,Quantitative Stat Lab 02/01/25 09:49 Completed HIV Combo Stat Lab 02/01/25 09:49 Completed Hepatitis C Ab Qual. W/ RFX Stat Lab 02/01/25 09:49 Completed UA [Urinalysis and Microscopic] Stat Lab 02/01/25 08:45 Completed Urine Culture Stat Micro 02/01/25 08:45 Received Medical Decision Narrative: In summary, this 24-year-old female presents to the emergency department today with abdominal cramping. On initial evaluation patient is []. Differential diagnosis includes but is not limited to spontaneous including inevitable incomplete or missed, urinary tract infection including asymptomatic bacteriuria during , ectopic . Based on these concerns, I ordered CBC CMP ABO Rh UA. Labs personally reviewed demonstrate appropriately elevated beta hCG, bacteriuria. [id number] ultrasound per procedure note. Asymptomatic bacteria treated with nitrofurantoin On reassessment patient has improvement of symptoms. Symptoms are most consistent with intrauterine . Recommended outpatient follow-up with OB and strict return precautions. Procedures Limited Ultrasound Indication:: Abdominal cramping Views:: Transabdominal pelvis Findings:: OB ultrasound Limited OB ultrasound Indication: Positive home test Identified structures: Uterus adnexa and pelvic of Baljeet Findings: Uterus: Definitive IUP FHR: 156 Right adnexa: Normal Left adnexa: Normal Cul de sac: Absent free fluid Impression: -IUP: Present - heart rate: 156 -Ectopic : Absent -Free fluid: Absent Images saved to permanent archive The study was technically adequate [facility] Transabdominal: [id number] This study was performed by me, and I personally interpreted all images/videos. Based on my clinical judgement, these images were [adequate/inadequate] and [did/did not] necessitate further imaging. Critical Care Critical Care Time Critical Care Time: No
[2025-02-01 08:56] VITALS: BP 126/77
[2025-02-01 08:57] VITALS: BP 126/77; PULSE 98; RESP 16; TEMP 36.8; O2SAT 95; BMI 42.2
--- NOTE | 2025-02-01 09:08 | PC.NURSE ---
er md at bedside with ultrasound
--- NOTE | 2025-02-01 09:08 | PC.NURSE ---
DR DOHERTY AT BEDSIDE
--- NOTE | 2025-02-01 09:09 | PC.NURSE ---
SPOKE WITH DR DOHERTY, PT IS B+ BLOOD TYPE, CANCEL TYPE AND SCREEN
[2025-02-01 09:15] VITALS: BP 117/66; PULSE 89; RESP 18; O2SAT 98
[2025-02-01 09:19] LABS: Microscopic, Urine URINE MICROSCOPIC (MICROSCOPIC)
[2025-02-01 09:22] LABS: Appearance,Urine CLEAR (Clear); Bilirubin,Urine Negative (Negative); Blood, Urine Negative (Negative); Color,Urine YELLOW (Yellow); Glucose,Urine (UA) Negative (Negative); Ketones,Urine Negative (Negative); Leukocyte Esterase,Urine 2+ (Negative); Nitrate,Urine Negative (Negative); PH,Urine 6.5 (5.0-8.5); Protein,Urine Negative (Negative); Specific Gravity, Urine 1.025 (1.005-1.030); Urobilinogen,Urine 0.2 EU/dl (0.2)
[2025-02-01 09:30] VITALS: BP 116/73; PULSE 109; RESP 18; O2SAT 97
[2025-02-01 10:00] LABS: Basophils % 0.4 % (0.1-2.0); Eosinophils # 0.1 K/mm3 (0.0-0.4); Eosinophils % 0.5 % (0.1-12.0); Hematocrit 36.4 % (37.0-47.0); Hemoglobin 12.6 g/dL (12.2-16.2); Lymphocytes # 2.9 K/mm3 (0.7-4.5); Lymphocytes % 28.9 % (10-50); Mean Corpuscular HGB Conc 34.6 g/dL (31.8-35.4); Mean Corpuscular Hemoglobin 31.3 pg (27.0-31.2); Mean Corpuscular Volume 90.5 fl (81-99); Mean Platelet Volume 11.2 fl (7.4-10.4); Monocytes # 0.6 K/mm3 (0.1-1.0); Monocytes % 5.6 % (1.7-9.3); Neutrophils # 6.4 K/mm3 (1.8-7.8); Neutrophils % 64.1 % (37.0-80.0); Platelet Count 184 K/mm3 (142-424); Red Blood Count 4.02 M/mm3 (4.20-5.40); Red Cell Distribution Width 12.5 % (11.5-17.5)
[2025-02-01 10:11] LABS: Bacteria,Urine 1+ /lpf; RBC,Urine Occasional #/hpf (0-3)
[2025-02-01 10:26] LABS: Albumin Level 3.8 g/dl (3.5-5.0); Chloride 106 mmol/L (98-107); Sodium 138 mmol/L (136-145)
[2025-02-01 10:29] LABS: Alanine Aminotransferase 31 U/L (12-78); Albumin/Globulin Ratio 1.4 (1.1-1.8); Alkaline Phosphatase 74 U/L (38-126); Aspartate Amino Transferase 31 U/L (14-36); Bilirubin,Total 0.2 mg/dl (0.2-1.3); Blood Urea Nitrogen 11 mg/dl (7-17); Calcium 8.8 mg/dl (8.4-10.2); Carbon Dioxide 24 mmol/L (22.0-30.0); Creatinine Clearance Estimated 77 mL/min (50-200); Estimated Glomerular Filt Rate 105 ml/min (>60); GFR (African American) 127 ML/MIN (>60); Globulin 2.8 g/dL (1.3-3.2); Glucose 151 mg/dl (74-100); Total Protein,Serum 6.6 g/dl (6.3-8.2)
--- NOTE | 2025-02-01 10:29 | PC.NURSE ---
Called lab and s/w Giovana and Liberty regarding UA results, as the Nitrates and Leukocytes are missing from report. Liberty faxed results to ER and stated on her end they are negative.
[2025-02-01 10:51] LABS: HCG,Quantitative > 15000 mIU/ml (0-5.42)
--- NOTE | 2025-02-01 10:58 | PC.NURSE ---
DR AVALOS AT BEDSIDE TO UPDATE PT
[2025-02-01 11:05] VITALS: BP 119/76; PULSE 88; RESP 16; TEMP 36.8; O2SAT 97
[2025-02-01 11:35] LABS: HIV Combo NEGATIVE (Negative)
[2025-02-01 11:44] LABS: Hepatitis C Ab Qual. W/ RFX NEGATIVE (Negative)
== END 2025-02-01 11:05 | disposition home or self-care (01) ==
PROVIDERS: Emergency Provider Student in an Organized Health Care Education/Training Program; PCP Pediatrics
DX: O26.899 Other specified pregnancy related conditions, unspecified trimester (principal); Z3A.08 8 weeks gestation of pregnancy
CPT/HCPCS: 80053; 81001; 84702; 85025; 86803; 87086; 87389; 99284

== ENCOUNTER 2025-02-15 10:23 | Outpatient (CLI) | payer BC, MEDICAID, SELFPAY ==
--- NOTE | 2025-02-15 10:30 | US_ITS ---
PROCEDURE: US OB <= 14 WEEKS FETUS CLINICAL INDICATION: Needs DEBORAH. Dates and viability COMPARISON: US POINT OF CARE US (ER ONLY) from 02/01/2025 FINDINGS: Transvaginal sonographic images of the pelvis were obtained. The uterus appears bicornuate. From her last menstrual period she is 9weeks 2days. An intrauterine gestational sac is present with a pole with a crown-rump length of 2.58cm This correlates to a gestational age of 9weeks 3days. CHANTE will remain 09/18/2025. heart tones are present with an FHR of 185bpm. Yolk sac is noted. The yolk sac measures 5.6mm. The right ovary is seen and appears normal. The left ovary is seen and appears normal. There is no fluid in the cul-de-sac. IMPRESSION: 1. Viable embryo within the uterine cavity. heart activity is seen. 2. The uterus appears bicornuate. 3. Size and dates are consistent with her last menstrual period and her CHANTE will remain 09/18/2025 4. Both ovaries are seen and appear normal. 5. No fluid in the cul-de-sac. Dictated by: Emanuel Ponce MD 02/15/2025 20:26 Emanuel Ponce MD in OV 02/15/2025 20:26
== END 2025-02-15 23:59 | disposition home or self-care (01) ==
LOC: RAD 10:24
PROVIDERS: PCP Pediatrics; Visit Provider Nurse Practitioner Obstetrics & Gynecology
DX: O36.80X0 Pregnancy with inconclusive fetal viability, not applicable or unspecified (principal); Z3A.09 9 weeks gestation of pregnancy
CPT/HCPCS: 76801

== ENCOUNTER 2025-03-07 19:53 | Emergency (ER) | payer BC, OTHER, SELFPAY ==
[2025-03-07] VITALS (8 sets, daily range): BP systolic 97–112; BP diastolic 48–64; PULSE 81–105; RESP 15; TEMP 36.7; O2SAT 96–99; BMI 39.6
[2025-03-07 20:04] LABS: Microscopic, Urine URINE MICROSCOPIC (MICROSCOPIC)
[2025-03-07] MEDS: LACTATED RINGERS 1000ML 1,000 ML 999 ML IV (20:07)
[2025-03-07] MEDS: ONDANSETRON 4MG/2ML VIAL 4 MG IV (20:07)
[2025-03-07 20:19] LABS: Basophils % 0.3 % (0.1-2.0); Eosinophils # 0.1 K/mm3 (0.0-0.4); Eosinophils % 0.5 % (0.1-12.0); Hemoglobin 12.7 g/dL (12.2-16.2); Lymphocytes # 4.2 K/mm3 (0.7-4.5); Mean Corpuscular HGB Conc 35.3 g/dL (31.8-35.4); Mean Corpuscular Hemoglobin 31.6 pg (27.0-31.2); Mean Corpuscular Volume 89.6 fl (81-99); Mean Platelet Volume 11.2 fl (7.4-10.4); Monocytes # 0.8 K/mm3 (0.1-1.0); Monocytes % 5.8 % (1.7-9.3); Neutrophils # 9.2 K/mm3 (1.8-7.8); Neutrophils % 64.1 % (37.0-80.0); Nucleated Red Blood Cells # 0 10^3/uL; Nucleated Red Blood Cells % 0 %; Platelet Count 172 K/mm3 (142-424); Red Blood Count 4.02 M/mm3 (4.20-5.40); Red Cell Distribution Width 12.4 % (11.5-17.5); Red Cell Distribution Width-SD 40.9 fL; White Blood Count 14.4 K/mm3 (4.8-10.8)
[2025-03-07 20:36] LABS: Bilirubin,Urine Negative (Negative); Blood, Urine TRACE-I (Negative); Color,Urine YELLOW (Yellow); Glucose,Urine (UA) Negative (Negative); Ketones,Urine Negative (Negative); Leukocyte Esterase,Urine 1+ (Negative); Nitrate,Urine Negative (Negative); Protein,Urine Negative (Negative); Specific Gravity, Urine >= 1.030 (1.005-1.030); Urobilinogen,Urine 0.2 EU/dl (0.2)
[2025-03-07 20:42] LABS: Albumin Level 3.8 g/dl (3.5-5.0); Chloride 103 mmol/L (98-107); Potassium 3.7 mmoL/L (3.5-5.1); Sodium 135 mmol/L (136-145)
[2025-03-07 20:45] LABS: Alanine Aminotransferase 21 U/L (12-78); Albumin/Globulin Ratio 1.1 (1.1-1.8); Alkaline Phosphatase 75 U/L (38-126); Anion Gap 12.7 mEq/L (5-15); Aspartate Amino Transferase 24 U/L (14-36); Bilirubin,Total 0.3 mg/dl (0.2-1.3); Blood Urea Nitrogen 9 mg/dl (7-17); Calcium 9.4 mg/dl (8.4-10.2); Carbon Dioxide 23 mmol/L (22.0-30.0); Creatinine Clearance Estimated 248 mL/min (50-200); Estimated Glomerular Filt Rate 154 ml/min (>60); GFR (African American) 187 ML/MIN (>60); Globulin 3.5 g/dL (1.3-3.2); Glucose 91 mg/dl (74-100); Total Protein,Serum 7.3 g/dl (6.3-8.2)
[2025-03-07 21:05] LABS: Appearance,Urine Slightly Cloudy (Clear); RBC,Urine Occasional #/hpf (0-3)
[2025-03-07 21:06] LABS: Bacteria,Urine 4+ /lpf
--- NOTE | 2025-03-07 21:16 | PC.NURSE ---
at bedside with US
--- NOTE | 2025-03-07 21:22 | HMH.EDGENADL ---
Discharge Plan Disposition Patient Disposition: Home, Self-Care Chief Complaint: Abdominal Pain Prescriptions Prescriptions: No Action escitalopram oxalate [Lexapro] 20 mg tablet 20 mg PO DAILY buspirone 15 mg tablet 15 mg PO BID methylphenidate HCl 5 mg tablet 5 mg PO DAILY Patient Comments: Take 1 tablet by mouth Daily With Lunch. metformin 500 mg tablet extended release 24 hr 500 mg PO HS Patient Comments: Take 1 tablet by mouth Daily With Breakfast. bupropion HCl 300 mg tablet extended release 24 hr 300 mg PO DAILY Patient Comments: Take 1 tablet by mouth Daily. Referrals Follow up/Referrals: Mingo Limon MD [Primary Care Provider] - See instructions Activity Restrictions/Add. Instructions Additional Instructions/Restrictions: Call your RAILROAD TRACK INSPECTOR to schedule close follow-up. Tell them you are seen in the emergency department, they will be able to review the workup from today. hCG today was 74,912. Call your family doctor to establish care for this visit to the emergency department and schedule follow-up within 48 hours to ensure improvement. If you have any worsening of your condition or any other concerning signs or symptoms, return to the emergency department or your primary care doctor for further evaluation. Clinical Impressions Clinical Impression: Vaginal spotting, Abdominal cramping Instructions Patient Instructions: DI for Acute Abdominal Pain Print Language Print Language: Malian Discharge ED Provider: Andrew Nunez General Adult HPI General Chief complaint: Abdominal Pain Stated complaint: 12 week ,cramping,back pain,vomiting Time Seen by Provider: 03/07/25 20:00 Mode of Arrival: Ambulatory Source of Information: Patient Description of Symptoms (Recalled from ER Triage Doc. by RN): patient states she is 12 weeks today around 11 at work she began having sudden cramping in her RUQ that radiates to her back. History of Present Illness HPI narrative: Please note that above description of symptoms, in this electronic medical record under categorization of recalled from ER triage doctor by RN are reflective of an initial nursing assessment, however, is not reflective of my full history and physical exam that was personally taken and clarified. Consequentially, this preceding description of symptoms, which may include the patient's categorized chief complaint in the EMR, do not reflect my personal clinical impression, and the ultimate description of history of present illness and patient stated complaints should be deferred to this section of the note. Unless stated otherwise or congruent with this section of the note, additional signs, symptoms, or incongruence should be interpreted as inaccurate with my clinical impression. Related Data Home Medications ?Medication ?Instructions ?Recorded ?Confirmed escitalopram oxalate 20 mg tablet 20 mg PO DAILY 11/12/22 02/11/25 (Lexapro) buspirone 15 mg tablet 15 mg PO BID 03/25/23 02/11/25 bupropion HCl 300 mg 24 hr tablet, 300 mg PO DAILY 02/01/25 02/11/25 extended release metformin 500 mg tablet,extended 500 mg PO HS 02/01/25 02/11/25 release 24 hr methylphenidate HCl 5 mg tablet 5 mg PO DAILY 02/01/25 02/11/25 Allergies Allergy/AdvReac Type Severity Reaction Status Date / Time No Known Allergies Allergy Verified 03/07/25 20:57 [facility] Disclaimer: The information contained in this section may have been updated after the patient was seen, as this information can be updated by other users. Medical History premature rupture of membranes White classification A2 gestational diabetes mellitus (GDM) Bicornuate uterus affecting , antepartum Bicornuate uterus Infertility Surgical History History of wisdom tooth extraction, class I edentulism Family History Grandmother Cancer breast cancer Social History Smoking Status: Never smoker alcohol intake: never current occupational status: employed Travel in the last 8 weeks: None Have you lived/traveled outside US in past 30 days?: No Contact w/someone who lives/traveled outside US past 30 days?: No Exposure to someone with infectious disease in past 14 days?: No Do you have a fever (greater than 100.4 F or 38 C)?: Yes Have you tested positive for COVID-19: No Exposed to someone with COVID-19 in past 14 days?: No Do you have a sore throat?: No Do you have a cough?: No Do you have any weakness?: Yes Do you have any diarrhea?: No Are you experiencing any unusual bleeding?: No Do you have any muscle aches/pain?: No Do you have any abdominal pain?: Yes Are you experiencing loss of taste or smell?: No Other Medical History Have you received the Flu Vaccine for this season: No Have you received the Pneumonia Vaccine: No ROS Obtained: Yes All systems reviewed & no additional complaints except as documented Physical Exam General General appearance: alert and in no apparent distress Head Head exam: atraumatic and normocephalic Eye Eye exam: Present normal appearance, PERRL and EOMI Neck Neck exam: Present normal inspection, full ROM and trachea midline Respiratory Respiratory exam: Absent respiratory distress, wheezes, stridor, accessory muscle use or prolonged expiratory phase Cardiovascular Cardiovascular exam: Present other (Pulses equal symmetric in upper and lower extremities) Abdominal Exam Abdominal exam: Present soft; Absent distention, tenderness or pulsatile mass Extremities Exam Extremities exam: Absent edema Neurological Exam Neurological exam: Present alert, oriented X3 and CN II-XII intact; Absent motor sensory deficit Skin Skin exam: Present warm and dry; Absent diaphoresis or erythema Medical Decision Making Medical Records Medical records reviewed: Yes I reviewed the patient's medical records. Screening: Per USPSTF and CDC recommendations, given the prevalence of disease in our region, it is our hospital?s policy to screen for HIV and viral Hepatitis for all patients aged 18 and over and those with ongoing risk factors. Lam Inquiry Pt receiving controlled substance: No Lam was queried for this patient: No Vital Signs: 03/07/25 20:01 03/07/25 20:02 03/07/25 20:30 Temperature 98.0 F Temperature Source Oral Pulse Rate 105 H 83 Pulse Rate [Left] 103 H Respiratory Rate 15 Blood Pressure 112/62 97/48 L Blood Pressure [Left Arm] 112/62 Blood Pressure Mean [Left Arm] 78 Blood Pressure Source [Left Arm] Automatic Cuff Blood Pressure Position [Left Arm] Sitting 02 Sat by Pulse Oximetry 96 96 97 Oxygen Delivery Method Room Air 03/07/25 20:31 03/07/25 20:45 03/07/25 21:00 Temperature Temperature Source Pulse Rate 81 91 H 86 Pulse Rate [Left] Respiratory Rate Blood Pressure 97/62 L 101/60 L Blood Pressure [Left Arm] Blood Pressure Mean [Left Arm] Blood Pressure Source [Left Arm] Blood Pressure Position [Left Arm] 02 Sat by Pulse Oximetry 99 98 98 Oxygen Delivery Method 03/07/25 21:30 Temperature Temperature Source Pulse Rate 87 Pulse Rate [Left] Respiratory Rate Blood Pressure 100/64 L Blood Pressure [Left Arm] Blood Pressure Mean [Left Arm] Blood Pressure Source [Left Arm] Blood Pressure Position [Left Arm] 02 Sat by Pulse Oximetry 99 Oxygen Delivery Method Lab Data Lab Results 03/07/25 20:00: Urine Color Yellow, Urine Appearance Slightly cloudy, Urine pH 6.0, Ur Specific [place] >= 1.030, Urine Protein Negative, Urine Glucose (UA) Negative, Urine Ketones Negative, Urine Blood Trace-i, Urine Nitrate Negative, Urine Bilirubin Negative, Urine Urobilinogen 0.2, Ur Leukocyte Esterase 1+ A, Urine RBC Occasional, Urine WBC 10-20, Ur Squamous Epith Cells 5-10, Urine Bacteria 4+ 03/07/25 20:10: WBC 14.4 H, RBC 4.02 L, Hgb 12.7, Hct 36.0 L, MCV 89.6, MCH 31.6 H, MCHC 35.3, RDW 12.4, Plt Count 172, MPV 11.2 H, Neut % (Auto) 64.1, Lymph % (Auto) 29.0, [place] % (Auto) 5.8, Eos % (Auto) 0.5, Baso % (Auto) 0.3, Neut # (Auto) 9.2 H, Lymph # (Auto) 4.2, [place] # (Auto) 0.8, Eos # (Auto) 0.1, Baso # (Auto) 0.0, Sodium 135 L, Potassium 3.7, Chloride 103, Carbon Dioxide 23, Anion Gap 12.7, BUN 9, Creatinine 0.50 L, Estimated Creat Clear 248, Estimated GFR 154, Est GFR ( Amer) 187, Glucose 91, Calcium 9.4, Total Bilirubin 0.3, AST 24, ALT 21, Alkaline Phosphatase 75, Total Protein 7.3, Albumin 3.8, Globulin 3.5 H, Albumin/Globulin Ratio 1.1, HCG, Quant [id number] H 03/07/25 20:10 03/07/25 20:10 Orders (Tests/Meds): ED MEDICATIONS Discontinued Medications Generic Name Dose Route Start Last Admin Trade Name Freq PRN Reason Stop Dose Admin Lactated Ringer's 1,000 mls @ 999 mls/hr 03/07/25 20:01 03/07/25 20:07 Lactated Ringer's 1000 Ml Bag IV 03/07/25 21:01 999 mls/hr .Q1H1M ONE Administration Ondansetron HCl 4 mg 03/07/25 20:01 03/07/25 20:07 Ondansetron 4mg/2ml Vial IV 03/07/25 20:02 4 mg ONCE ONE Administration ORDERS Category Date Time Status POCUS Point of Care (ER Only) Stat Exams 03/07/25 20:01 Completed CBC w/Auto Diff [Complete Blood Count Auto Diff] Stat Lab 03/07/25 20:10 Completed CMP [Comprehensive Metabolic Panel] Stat Lab 03/07/25 20:10 Completed HCG,Quantitative Stat Lab 03/07/25 20:10 Completed UA [Urinalysis and Microscopic] Stat Lab 03/07/25 20:00 Completed Urine Culture Stat Micro 03/07/25 20:00 Received Medical Decision Narrative: 24-year-old female G2, P1 presenting with spotting, abdominal and back cramping. She states that spotting happened yesterday, went away. She started having lower abdominal and back cramping today as well is 1 episode of vomiting. No diarrhea. No fevers or chills or any other symptoms. No gushes, patient is not feeling baby move yet, no clots. History was obtained via conversation with patient. On arrival, patient hemodynamically stable, alert, oriented x4, appropriate, GCS 15, moving all extremities spontaneously, pupils equal and reactive to light. Full physical exam performed and significant for well-appearing female no acute distress. Abdomen soft, nontender, nondistended. Differential includes cervical change, subchorionic hemorrhage, abruption, spontaneous miscarriage, inevitable miscarriage, urinary tract infection, among others. Patient took Tylenol a couple hours prior to arrival, was offered more, but declined. Workup independently interpreted and significant for leukocytosis 14.4, possibly physiologic. Patient's hemoglobin normal at 12.7. Chemistry nonactionable, urinalysis contaminated, does not show signs of infection. hCG 74,912. Bedside [id number] ultrasound was performed and patient has good movement, heart rate 150, no obvious subchorionic hemorrhage or any abnormality. Patient be positive. Reevaluation, patient not having any cramping or any symptoms at this time. Given patient presentation, workup, history, this most likely represents idiopathic spotting in early , abdominal and back cramping could be attributed to gastritis given vomiting associated. Less likely to be abruption given patient currently asymptomatic and nontachycardic fetus, well-appearing patient. Edin sent to pharmacy. Close return precautions with family doctor and RAILROAD TRACK INSPECTOR were discussed. Because patient at baseline without signs or symptoms of clinical decompensation, deemed appropriate for discharge. Results were relayed to patient who voiced understanding and were agreeable to outpatient management and follow up. I discussed my clinical impression with patient and answered all questions. At this time, the evidence for any other entities in the differential is insufficient to warrant any further testing or ED observation. This was explained as well. Advisory was given that persistent or worsening symptoms require further evaluation. I confirmed the understanding of this discussion. [employer]ures Lab Technician disclaimer Much of this encounter note is an electronic professional services specialist spoken language to printed text. Electronic professional services specialist of the spoken language may permit errors. Although I have reviewed the note, some errors may still exist. Procedures Limited Ultrasound Indication:: Limited OB ultrasound Indication: Spotting, , cramping Identified structures: -Uterus -Left adnexa -Right adnexa -Pouch of [place] Findings: Uterus: Definitive IUP with FHR 150 Right adnexa: -Normal Left adnexa: -Normal Cul de sac: -free fluid absent Impression: -IUP: Present with fhr 150 -Ectopic : Absent -Free fluid: Absent Images were saved to permanent archive The study was technically adequate [facility] Transabdominal: [id number] This study was performed by me, and I personally interpreted all images/videos. Based on my clinical judgement, these images were adequate and did not necessitate further imaging Critical Care Critical Care Time Critical Care Time: No
[2025-03-07 21:31] LABS: HCG,Quantitative 74912 mIU/ml (0-5.42)
== END 2025-03-07 21:59 | disposition home or self-care (01) ==
PROVIDERS: Emergency Provider Emergency Medicine; PCP Pediatrics
DX: O26.851 Spotting complicating pregnancy, first trimester (principal); R10.11 Right upper quadrant pain; Z3A.12 12 weeks gestation of pregnancy
CPT/HCPCS: 96361; 96374; 99284; 80053; 81001; 84702; 85025; 87086; J2405; J7120

== ENCOUNTER 2025-04-23 12:19 | Emergency (ER) | payer BC, OTHER, SELFPAY ==
[2025-04-23 12:56] LABS: Microscopic, Urine URINE MICROSCOPIC (MICROSCOPIC)
[2025-04-23 13:02] LABS: Appearance,Urine CLOUDY (Clear); Bilirubin,Urine Negative (Negative); Blood, Urine Negative (Negative); Color,Urine YELLOW (Yellow); Glucose,Urine (UA) Negative (Negative); Ketones,Urine Negative (Negative); Leukocyte Esterase,Urine 1+ (Negative); Nitrate,Urine Negative (Negative); PH,Urine 7.5 (5.0-8.5); Protein,Urine Negative (Negative); Urobilinogen,Urine 0.2 EU/dl (0.2)
[2025-04-23 13:05] VITALS: BP 113/71; PULSE 106; RESP 17; TEMP 37.1; O2SAT 97; BMI 41.1
[2025-04-23 13:15] LABS: Bacteria,Urine 3+ /lpf; WBC,Urine Occasional #/hpf (0-3)
[2025-04-23 13:30] VITALS: BP 93/47; PULSE 103; O2SAT 96
--- NOTE | 2025-04-23 13:39 | ED_ITS ---
Discharge Plan Disposition Patient Disposition: Home, Self-Care Prescriptions Prescriptions: New cephalexin 500 mg capsule 1,000 mg PO BID 5 Days Qty: 20 0RF No Action escitalopram oxalate [Lexapro] 20 mg tablet 20 mg PO DAILY buspirone 15 mg tablet 15 mg PO BID metoprolol succinate 25 mg tablet extended release 24 hr 25 mg PO DAILY methylphenidate HCl 36 mg tablet extended release 24hr PO Patient Comments: Take 1 tablet by mouth Every Morning methylphenidate HCl 5 mg tablet 5 mg PO DAILY Patient Comments: Take 1 tablet by mouth Daily With Lunch. bupropion HCl 300 mg tablet extended release 24 hr 300 mg PO DAILY Patient Comments: Take 1 tablet by mouth Daily. Referrals Follow up/Referrals: Mingo Limon MD [Primary Care Provider] - See instructions Activity Restrictions/Add. Instructions Additional Instructions/Restrictions: Call your family doctor to establish care for this visit to the emergency department and schedule follow-up within 48 hours to ensure improvement. If you have any worsening of your condition or any other concerning signs or symptoms, return to the emergency department or your primary care doctor for further evaluation. Clinical Impressions Clinical Impression: Encounter for medical assessment, Abdominal cramping affecting Print Language Print Language: Mohawk Discharge ED Provider: Andrew Nunez General Adult HPI General Chief complaint: OB/Uterine Contractions Stated complaint: antepartum 19 wks cramping/decreaded movement Time Seen by Provider: 04/23/25 12:53 Mode of Arrival: Ambulatory Source of Information: Patient Description of Symptoms (Recalled from ER Triage Doc. by RN): pt is reportedly 19 weeks and reports to the ED with abd. cramping and decreased movement since last night. pt denies any vaginal bleeding. pt is a History of Present Illness HPI narrative: Please note that above description of symptoms, in this electronic medical record under categorization of recalled from ER triage doctor by RN are reflective of an initial nursing assessment, however, is not reflective of my full history and physical exam that was personally taken and clarified. Consequentially, this preceding description of symptoms, which may include the patient's categorized chief complaint in the EMR, do not reflect my personal clinical impression, and the ultimate description of history of present illness and patient stated complaints should be deferred to this section of the note. Unless stated otherwise or congruent with this section of the note, additional signs, symptoms, or incongruence should be interpreted as inaccurate with my clinical impression. Related Data Home Medications ?Medication ?Instructions ?Recorded ?Confirmed escitalopram oxalate 20 mg tablet 20 mg PO DAILY 11/12/22 04/08/25 (Lexapro) buspirone 15 mg tablet 15 mg PO BID 03/25/23 04/08/25 bupropion HCl 300 mg 24 hr tablet, 300 mg PO DAILY 02/01/25 04/08/25 extended release methylphenidate HCl 5 mg tablet 5 mg PO DAILY 02/01/25 04/08/25 methylphenidate HCl 36 mg mg PO 03/11/25 04/08/25 tablet,extended release 24 hr metoprolol succinate 25 mg 25 mg PO DAILY 04/08/25 04/08/25 tablet,extended release 24 hr Previous Rx's ?Medication ?Instructions ?Recorded cephalexin 500 mg capsule 1,000 mg (2 x 500 mg) PO BID 5 04/23/25 days #20 caps Allergies Allergy/AdvReac Type Severity Reaction Status Date / Time No Known Allergies Allergy Verified 04/08/25 15:04 [facility] Disclaimer: The information contained in this section may have been updated after the patient was seen, as this information can be updated by other users. Medical History premature rupture of membranes White classification A2 gestational diabetes mellitus (GDM) Bicornuate uterus affecting , antepartum Bicornuate uterus Infertility Surgical History History of wisdom tooth extraction, class I edentulism Family History Grandmother Cancer breast cancer Social History Smoking Status: Never smoker alcohol intake: never current occupational status: employed Travel in the last 8 weeks?: None Have you lived/traveled outside US in past 30 days?: No Contact w/someone who lives/traveled outside US past 30 days?: No Exposure to someone with infectious disease in past 14 days?: No Do you have a fever (greater than 100.4 F or 38 C)?: No Have you tested positive for COVID-19?: No Exposed to someone with COVID-19 in past 14 days?: No Do you have a sore throat?: No Do you have a cough?: No Do you have any weakness?: No Do you have any diarrhea?: No Are you experiencing any unusual bleeding?: No Do you have any muscle aches/pain?: No Do you have any abdominal pain?: No Are you experiencing loss of taste or smell?: No Other Medical History Have you received the Flu Vaccine for this season: No Have you received the Pneumonia Vaccine: No ROS Obtained: Yes All systems reviewed & no additional complaints except as documented Physical Exam General General appearance: alert Head Head exam: atraumatic and normocephalic Eye Eye exam: Present normal appearance, PERRL and EOMI Neck Neck exam: Present normal inspection, full ROM and trachea midline Respiratory Respiratory exam: Absent respiratory distress, wheezes, stridor, accessory muscle use or prolonged expiratory phase Cardiovascular Cardiovascular exam: Present other (Pulses equal symmetric in upper and lower extremities) Abdominal Exam Abdominal exam: Present soft; Absent distention, tenderness or pulsatile mass Extremities Exam Extremities exam: Absent edema Neurological Exam Neurological exam: Present alert, oriented X3 and CN II-XII intact; Absent motor sensory deficit Skin Skin exam: Present warm and dry; Absent diaphoresis or erythema Medical Decision Making Medical Records Medical records reviewed: Yes I reviewed the patient's medical records. Screening: Per USPSTF and CDC recommendations, given the prevalence of disease in our region, it is our hospital?s policy to screen for HIV and viral Hepatitis for all patients aged 18 and over and those with ongoing risk factors. Lam Inquiry Pt receiving controlled substance: No Lam was queried for this patient: No Vital Signs: 04/23/25 13:05 04/23/25 13:30 04/23/25 14:00 Temperature 98.8 F Temperature Source Oral Pulse Rate 103 H 98 H Pulse Rate [Left Radial] 106 H Respiratory Rate 17 Blood Pressure 93/47 L 90/38 L Blood Pressure [Right Arm] 113/71 Blood Pressure Mean [Right Arm] 85 Blood Pressure Source [Right Arm] Automatic Cuff Blood Pressure Position [Right Arm] Sitting 02 Sat by Pulse Oximetry 97 96 97 Oxygen Delivery Method Room Air 04/23/25 14:30 04/23/25 14:57 Temperature 98.2 F Temperature Source Oral Pulse Rate 93 H 99 H Pulse Rate [Left Radial] Respiratory Rate 16 Blood Pressure 97/48 L 97/48 L Blood Pressure [Right Arm] Blood Pressure Mean [Right Arm] Blood Pressure Source [Right Arm] Blood Pressure Position [Right Arm] 02 Sat by Pulse Oximetry 97 Oxygen Delivery Method Room Air Lab Data Lab Results 04/23/25 12:51: Urine Color Yellow, Urine Appearance Cloudy, Urine pH 7.5, Ur Specific [place] 1.020, Urine Protein Negative, Urine Glucose (UA) Negative, Urine Ketones Negative, Urine Blood Negative, Urine Nitrate Negative, Urine Bilirubin Negative, Urine Urobilinogen 0.2, Ur Leukocyte Esterase 1+ A, Urine RBC None, Urine WBC Occasional, Ur Squamous Epith Cells 3-5, Urine Bacteria 3+ 04/23/25 13:45: WBC 10.1, RBC 3.54 L, Hgb 11.5 L, Hct 32.8 L, MCV 92.7, MCH 32.5 H, MCHC 35.1, RDW 13.3, Plt Count 131 L, MPV 11.7 H, Neut % (Auto) 63.6, Lymph % (Auto) 30.4, [place] % (Auto) 4.9, Eos % (Auto) 0.3, Baso % (Auto) 0.2, Neut # (Auto) 6.4, Lymph # (Auto) 3.1, [place] # (Auto) 0.5, Eos # (Auto) 0.0, Baso # (Auto) 0.0, Sodium 136, Potassium 3.5, Chloride 109 H, Carbon Dioxide 25, Anion Gap 5.5, BUN 5 L, Creatinine 0.40 L, Estimated Creat Clear 298, Estimated GFR 198, Est GFR ( Amer) 239, Glucose 126 H, Calcium 9.2, Total Bilirubin 0.2, AST 19, ALT 17, Alkaline Phosphatase 70, Total Protein 6.4, Albumin 3.3 L, Globulin 3.1, Albumin/Globulin Ratio 1.1, HCG, Quant [id number] H 04/23/25 13:45 04/23/25 13:45 Orders (Tests/Meds): ED MEDICATIONS Discontinued Medications Generic Name Dose Route Start Last Admin Trade Name Freq PRN Reason Stop Dose Admin Cephalexin HCl 1,000 mg 04/23/25 13:40 04/23/25 13:50 Cephalexin 500mg Capsule PO 04/23/25 13:41 1,000 mg ONCE ONE Administration ORDERS Category Date Time Status POCUS Point of Care (ER Only) Stat Exams 04/23/25 12:57 Completed CBC w/Auto Diff [Complete Blood Count Auto Diff] Stat Lab 04/23/25 13:45 Completed CMP [Comprehensive Metabolic Panel] Stat Lab 04/23/25 13:45 Completed HCG,Quantitative Stat Lab 04/23/25 13:45 Completed UA [Urinalysis and Microscopic] Stat Lab 04/23/25 12:51 Completed Urine Culture Stat Micro 04/23/25 12:51 Received Medical Decision Narrative: This is a 25-year-old female presenting 19 weeks with concern for decreased movement and abdominal cramping. She states that she has felt decreased movement since last night, usually feels a move throughout the day. Nothing today. Came in for further evaluation. Also having lower abdominal cramping, no bleeding per vagina, no urinary symptoms. History obtained with patient. On arrival, very clinically well. Mildly anxious, mildly tachycardic, but otherwise very clinically well. Abdomen is soft, nontender, nondistended. Differential includes normal , inevitable versus threatened , incomplete , among others. Workup initiated. On independent interpretation, she does have bacteriuria with leukocyte Estrace, receiving Keflex here and for home-going. Bedside [id number] ultrasound performed. On independent interpretation, patient has viable IUP with heart rate in the 150s. Good flexion and extension movements, adequate amount of fluid. Head down. Labs independently interpreted nonactionable findings. Normal LFTs and normal kidney function. hCG 29,000. Urinalysis with asymptomatic bacteriuria. Because patient at baseline without signs or symptoms of clinical decompensation, deemed appropriate for discharge. Results were relayed to patient who voiced understanding and were agreeable to outpatient management and follow up. I discussed my clinical impression with patient and answered all questions. At this time, the evidence for any other entities in the differential is insufficient to warrant any further testing or ED observation. This was explained as well. Advisory was given that persistent or worsening symptoms require further evaluation. I confirmed the understanding of this discussion. Bee Farmer disclaimer Much of this encounter note is an electronic title one kindergarten teacher spoken language to printed text. Electronic title one kindergarten teacher of the spoken language may permit errors. Although I have reviewed the note, some errors may still exist. Critical Care Critical Care Time Critical Care Time: No
[2025-04-23] MEDS: cephALEXin 500MG CAPSULE 1000 MG PO (13:50)
[2025-04-23 13:56] LABS: Basophils % 0.2 % (0.1-2.0); Eosinophils % 0.3 % (0.1-12.0); Hematocrit 32.8 % (37.0-47.0); Hemoglobin 11.5 g/dL (12.2-16.2); Immature Granulocytes # 0.06 10^3uL; Immature Granulocytes % 0.6 %; Lymphocytes # 3.1 K/mm3 (0.7-4.5); Lymphocytes % 30.4 % (10-50); Mean Corpuscular HGB Conc 35.1 g/dL (31.8-35.4); Mean Corpuscular Hemoglobin 32.5 pg (27.0-31.2); Mean Corpuscular Volume 92.7 fl (81-99); Mean Platelet Volume 11.7 fl (7.4-10.4); Monocytes # 0.5 K/mm3 (0.1-1.0); Monocytes % 4.9 % (1.7-9.3); Neutrophils # 6.4 K/mm3 (1.8-7.8); Neutrophils % 63.6 % (37.0-80.0); Nucleated Red Blood Cells # 0 10^3/uL; Nucleated Red Blood Cells % 0 %; Platelet Count 131 K/mm3 (142-424); Red Blood Count 3.54 M/mm3 (4.20-5.40); Red Cell Distribution Width 13.3 % (11.5-17.5); Red Cell Distribution Width-SD 44.8 fL; White Blood Count 10.1 K/mm3 (4.8-10.8)
[2025-04-23 14:00] VITALS: BP 90/38; PULSE 98; O2SAT 97
[2025-04-23 14:04] LABS: Albumin Level 3.3 g/dl (3.5-5.0); Chloride 109 mmol/L (98-107); Potassium 3.5 mmoL/L (3.5-5.1); Sodium 136 mmol/L (136-145)
[2025-04-23 14:07] LABS: Alanine Aminotransferase 17 U/L (12-78); Albumin/Globulin Ratio 1.1 (1.1-1.8); Alkaline Phosphatase 70 U/L (38-126); Anion Gap 5.5 mEq/L (5-15); Aspartate Amino Transferase 19 U/L (14-36); Bilirubin,Total 0.2 mg/dl (0.2-1.3); Blood Urea Nitrogen 5 mg/dl (7-17); Calcium 9.2 mg/dl (8.4-10.2); Carbon Dioxide 25 mmol/L (22.0-30.0); Creatinine Clearance Estimated 298 mL/min (50-200); Estimated Glomerular Filt Rate 198 ml/min (>60); GFR (African American) 239 ML/MIN (>60); Globulin 3.1 g/dL (1.3-3.2); Glucose 126 mg/dl (74-100); Total Protein,Serum 6.4 g/dl (6.3-8.2)
[2025-04-23 14:30] VITALS: BP 97/48; PULSE 93; O2SAT 97
[2025-04-23 14:57] VITALS: BP 97/48; PULSE 99; RESP 16; TEMP 36.8; O2SAT 98
== END 2025-04-23 14:58 | disposition home or self-care (01) ==
PROVIDERS: Emergency Provider Emergency Medicine; PCP Pediatrics
DX: O26.892 Other specified pregnancy related conditions, second trimester (principal); R10.819 Abdominal tenderness, unspecified site; Z3A.19 19 weeks gestation of pregnancy
CPT/HCPCS: 80053; 81001; 84702; 85025; 87086; 99283

== ENCOUNTER 2025-04-28 21:30 | Emergency (ER) | payer BC, OTHER, SELFPAY ==
[2025-04-28 21:44] VITALS: BP 125/76; PULSE 108; RESP 18; TEMP 37.2; O2SAT 96; BMI 38.3
--- NOTE | 2025-04-28 21:47 | PC.NURSE ---
OB transmission assembler physician paged for provider at this time.
--- NOTE | 2025-04-28 21:48 | PC.NURSE ---
Dr. Mills on the phone with Dr. Pathak
--- NOTE | 2025-04-28 22:08 | [facility].EDGENADL ---
Discharge Plan Disposition Patient Disposition: Home, Self-Care Prescriptions Prescriptions: No Action escitalopram oxalate [Lexapro] 20 mg tablet 20 mg PO DAILY buspirone 15 mg tablet 15 mg PO BID metoprolol succinate 25 mg tablet extended release 24 hr 25 mg PO DAILY methylphenidate HCl 36 mg tablet extended release 24hr PO Patient Comments: Take 1 tablet by mouth Every Morning methylphenidate HCl 5 mg tablet 5 mg PO DAILY Patient Comments: Take 1 tablet by mouth Daily With Lunch. bupropion HCl 300 mg tablet extended release 24 hr 300 mg PO DAILY Patient Comments: Take 1 tablet by mouth Daily. cephalexin 500 mg capsule 1,000 mg PO BID 5 Days Qty: 20 0RF Referrals Follow up/Referrals: Mingo Limon MD [Primary Care Provider, Medical] - See instructions Activity Restrictions/Add. Instructions Additional Instructions/Restrictions: You have a single living intrauterine consistent with your dates with a normal heart rate and no definitive evidence of premature rupture of membranes. We performed a test called an AmniSure today which was negative. Please follow-up with Dr. Kimbrough as previously instructed tomorrow. Clinical Impressions Clinical Impression: Fluid loss, Second trimester Print Language Print Language: Divehi Discharge ED Provider: Kwame Mills General Adult HPI General Chief complaint: Recheck/Abnormal Lab/Rx Stated complaint: 19 weeks preg,may be leaking fluid Time Seen by Provider: 04/28/25 21:34 Mode of Arrival: Ambulatory Source of Information: Patient Description of Symptoms (Recalled from ER Triage Doc. by RN): Pt to ED 19w6d with c/o possible ruptured membranes. Pt reports she noticed moderate leaking of fluid at approx 4pm today. Denies vaginal bleeding, abd pain/contractions. History of Present Illness HPI narrative: Patient is a 25-year-old G2, P1 at 19 and 6 weeks presents today with what she believes may be leaking of amniotic fluid. Started several hours ago and has been constant with any type of positional change. Has had some very mild cramping but no contractions that she knows of. No bleeding no loss of movements that she is aware of. No fevers or chills no purulent drainage. She is followed by Dr. Kimbrough. First was delivery as well around 32 weeks. Related Data Home Medications ?Medication ?Instructions ?Recorded ?Confirmed escitalopram oxalate 20 mg tablet 20 mg PO DAILY 11/12/22 04/08/25 (Lexapro) buspirone 15 mg tablet 15 mg PO BID 03/25/23 04/08/25 bupropion HCl 300 mg 24 hr tablet, 300 mg PO DAILY 02/01/25 04/08/25 extended release methylphenidate HCl 5 mg tablet 5 mg PO DAILY 02/01/25 04/08/25 methylphenidate HCl 36 mg mg PO 03/11/25 04/08/25 tablet,extended release 24 hr metoprolol succinate 25 mg 25 mg PO DAILY 04/08/25 04/08/25 tablet,extended release 24 hr Previous Rx's ?Medication ?Instructions ?Recorded cephalexin 500 mg capsule 1,000 mg (2 x 500 mg) PO BID 5 04/23/25 days #20 caps Allergies Allergy/AdvReac Type Severity Reaction Status Date / Time No Known Allergies Allergy Verified 04/08/25 15:04 [facility] Disclaimer: The information contained in this section may have been updated after the patient was seen, as this information can be updated by other users. Medical History premature rupture of membranes White classification A2 gestational diabetes mellitus (GDM) Bicornuate uterus affecting , antepartum Bicornuate uterus Infertility Surgical History History of wisdom tooth extraction, class I edentulism Family History Grandmother Cancer breast cancer Social History Smoking Status: Never smoker alcohol intake: never current occupational status: employed Travel in the last 8 weeks?: None Have you lived/traveled outside US in past 30 days?: No Contact w/someone who lives/traveled outside US past 30 days?: No Exposure to someone with infectious disease in past 14 days?: No Do you have a fever (greater than 100.4 F or 38 C)?: No Have you tested positive for COVID-19?: No Exposed to someone with COVID-19 in past 14 days?: No Do you have a sore throat?: No Do you have a cough?: No Do you have any weakness?: No Do you have any diarrhea?: No Are you experiencing any unusual bleeding?: No Do you have any muscle aches/pain?: No Do you have any abdominal pain?: No Are you experiencing loss of taste or smell?: No Other Medical History Have you received the Flu Vaccine for this season: No Have you received the Pneumonia Vaccine: No ROS Obtained: Yes All systems reviewed & no additional complaints except as documented Physical Exam General General appearance: alert Respiratory Respiratory exam: Present normal lung sounds bilaterally Cardiovascular Cardiovascular exam: Present regular rate Abdominal Exam Abdominal exam: Present soft; Absent distention or tenderness Neurological Exam Neurological exam: Present alert and oriented X3 Medical Decision Making Medical Records Screening: Per USPSTF and CDC recommendations, given the prevalence of disease in our region, it is our hospital?s policy to screen for HIV and viral Hepatitis for all patients aged 18 and over and those with ongoing risk factors. Lam Inquiry Pt receiving controlled substance: No Vital Signs: 04/28/25 21:44 Temperature 98.9 F Temperature Source Oral Pulse Rate [Left Radial] 108 H Respiratory Rate 18 Blood Pressure [Right Arm] 125/76 Blood Pressure Mean [Right Arm] 92 Blood Pressure Source [Right Arm] Automatic Cuff Blood Pressure Position [Right Arm] Sitting 02 Sat by Pulse Oximetry 96 Oxygen Delivery Method Room Air Lab Data Lab results reviewed: Yes I reviewed the patient's lab results. Lab Results 04/28/25 22:02: WBC 11.1 H, RBC 3.61 L, Hgb 11.7 L, Hct 33.4 L, MCV 92.5, MCH 32.4 H, MCHC 35.0, RDW 13.2, Plt Count 146, MPV 11.4 H, Neut % (Auto) 63.0, Lymph % (Auto) 29.2, [place] % (Auto) 6.6, Eos % (Auto) 0.4, Baso % (Auto) 0.2, Neut # (Auto) 7.0, Lymph # (Auto) 3.3, [place] # (Auto) 0.7, Eos # (Auto) 0.1, Baso # (Auto) 0.0 04/28/25 22:20: Membrane Rupture Negative 04/28/25 22:02 Orders (Tests/Meds): ORDERS Category Date Time Status POCUS Point of Care (ER Only) Stat Exams 06/01/25 21:34 Ordered Amnisure Test [ Membrane Rupture (Rapid)] Stat Lab 04/28/25 22:20 Completed CBC w/Auto Diff [Complete Blood Count Auto Diff] Stat Lab 04/28/25 22:02 Completed Chlam/Gono/Mycoplasma Panel Stat Lab 04/28/25 22:20 Received Medical Decision Narrative: Very stable 25-year-old female with possible P PROM. Ultrasound shows single living IUP consistent with dates but possible diminished amniotic fluid admittedly though that is not a typical emergency department evaluation and bedside ultrasound. I discussed the case with Dr. Pathak. We will get an AmniSure test and make disposition decision based upon that. If negative she can follow-up outpatient if positive would likely will have her have a further discussion given her previable state at the moment. Reassessment 1121 AmniSure is negative patient has follow-up tomorrow with Dr. Kimbrough I discussed the case further with Dr. Pathak and she is comfortable with the patient following up outpatient. Procedures Miscellaneous Procedure Procedure Performed: Limited OB ultrasound Indication: Loss of fluid Identified structures: [-Uterus -Left adnexa -Right adnexa -Pouch of [place]] Findings: Single living IUP consistent with dates with normal heart rate amniotic fluid does appear to be less than normal Right adnexa: No free fluid Left adnexa: No free fluid [place]: No free fluid Impression: Single living IUP with normal heart rate consistent with dates and concern with oligohydramnios Images were saved to permanent archive The study was technically adequate CPT Transabdominal: 86714-77 This study was performed by me, and I personally interpreted all images/videos. Based on my clinical judgement, these images were adequate and did not necessitate further imaging. Critical Care Critical Care Time Critical Care Time: No
[2025-04-28 22:12] LABS: Basophils % 0.2 % (0.1-2.0); Eosinophils # 0.1 Kmm3 (0.0-0.4); Eosinophils % 0.4 % (0.1-12.0); Hematocrit 33.4 % (37.0-47.0); Hemoglobin 11.7 g/dL (12.2-16.2); Immature Granulocytes # 0.07 10^3uL; Immature Granulocytes % 0.6 %; Lymphocytes # 3.3 K/mm3 (0.7-4.5); Lymphocytes % 29.2 % (10-50); Mean Corpuscular Hemoglobin 32.4 pg (27.0-31.2); Mean Corpuscular Volume 92.5 fl (81-99); Mean Platelet Volume 11.4 fl (7.4-10.4); Monocytes # 0.7 K/mm3 (0.1-1.0); Monocytes % 6.6 % (1.7-9.3); Nucleated Red Blood Cells # 0 10^3/uL; Nucleated Red Blood Cells % 0 %; Platelet Count 146 K/mm3 (142-424); Red Blood Count 3.61 M/mm3 (4.20-5.40); Red Cell Distribution Width 13.2 % (11.5-17.5); Red Cell Distribution Width-SD 43.9 fL; White Blood Count 11.1 K/mm3 (4.8-10.8)
[2025-04-28 22:49] LABS: Fetal Membrane Rupture (Rapid) Negative (Negative)
[2025-04-28 23:43] VITALS: BP 103/62; PULSE 93; RESP 18; TEMP 37.2; O2SAT 99
== END 2025-04-28 23:46 | disposition home or self-care (01) ==
PROVIDERS: Emergency Provider Student in an Organized Health Care Education/Training Program; PCP Pediatrics
DX: Z03.71 Encounter for suspected problem with amniotic cavity and membrane ruled out (principal)
CPT/HCPCS: 84112; 85025; 87491; 87563; 87591; 87798; 99283

== ENCOUNTER 2025-05-01 12:59 | Outpatient (CLI) | payer OTHER, SELFPAY ==
--- NOTE | 2025-05-01 13:00 | US_ITS ---
PROCEDURE: US OB /MATERNAL DETAIL CLINICAL INDICATION: 20 week anatomy scan COMPARISON: US US OB <= 14 WEEKS FETUS from 02/15/2025 FINDINGS: Transabdominal sonographic images of the pelvis were obtained. From her established due date she is 20 weeks 1 day. Single viable intrauterine gestation. Cephalic position. Placenta: Anteriorplacenta grade 1. There is an average amount of fluid. The cervix appears satisfactory. Closed and measuring 3.90 cm in length. Complete survey performed and was unremarkable on the submitted images as in PACS. No discrete anomalies identified on survey imaging by technologist. Active fetus. Three-vessel cord with satisfactory umbilical cord insertion. 4- chamber heart noted. [place], aortic arch, LVOT, RVOT, three-vessel view appear normal. Survey of brain & ventricles Unremarkable. Cerebellum, thalamus, choroid plexus, cisterna magna appear normal. Face and neck survey unremarkable. Profile, nasion, lips and nose appeared normal. Diaphragm and chest views unremarkable. Abdomen: Both kidneys noted and unremarkable. There is mild bilaterally renal pelvis dilation. 4.8 mm and 4.1 mm. Stomach and bladder noted and satisfactory. Spine: Survey of the spine satisfactory with no anomalies identified nor imaged. Cervical, thoracic, lower spine appear normal. Both arms and legs noted. Amniotic Fluid: Adequate. MVP 4.10 cm Measurements: Average ultrasound age 20weeks 4days. Estimated due date by ultrasound age 1009/14/2025. Estimated weight 370g BPD = 20weeks 2days HC = 20weeks 0 days AC = 21weeks 1day FL = 20weeks 3days Growth Percentile= 75 Heart Rate = 139bpm Cerebellum = 19weeks 6days Humerus = 21weeks 1day HC/AC is 1.09 FL/BPD is 0.71 FL/AC is 0.21 IMPRESSION: 1. Viable fetus in the cephalic presentation with an anterior placenta grade 1. 2. The fluid is within normal limits with an MVP 4.10. 3. Anatomical scan appears normal. There is mild bilateral renal pelvis dilation measuring 4.8 mm and 4.1 mm. Suggest follow-up at 28 weeks. 4. biometry is consistent with the dates. Dictated by: Emanuel Ponce MD 05/01/2025 15:37 Emanuel Ponce MD in [place] 05/01/2025 15:37
== END 2025-05-01 23:59 | disposition home or self-care (01) ==
LOC: RAD 13:00
PROVIDERS: PCP Pediatrics; Visit Provider Nurse Practitioner Obstetrics & Gynecology
DX: O34.02 Maternal care for unspecified congenital malformation of uterus, second trimester (principal); O26.892 Other specified pregnancy related conditions, second trimester; O26.832 Pregnancy related renal disease, second trimester; Q51.3 Bicornate uterus; R10.9 Unspecified abdominal pain; Z3A.20 20 weeks gestation of pregnancy; N28.89 Other specified disorders of kidney and ureter
CPT/HCPCS: 76811

== ENCOUNTER 2025-06-10 10:21 | Outpatient (CLI) | payer OTHER, SELFPAY ==
--- OUTSIDE RECORDS SUMMARY | 2025-06-10 10:24 | XMS_ITS | Clinical Summary ---
Author Organization Healthcare Address [address] [place] [address] Care Team Providers Care Firestop/Containment Worker Name Role Phone Pcp, No Primary Care Provider Unavailabl e Allergies No known active allergies Medications escitalopram (Lexapro) 20 MG tablet Take 20 mg by mouth 1 (one) time each day. Active busPIRone (Buspar) 15 MG tablet Take 15 mg by mouth 2 (two) times a day. Active loratadine (Claritin) 10 MG tablet Take 10 mg by mouth 1 (one) time each day. Active Vit-Fe Fumarate-FA ( 19) chewable tablet Chew 1 tablet 1 (one) time each day. Active acetaminophen (Tylenol) 325 MG tablet Take 2 tablets (650 mg) by mouth every 6 (six) hours. 100 tablet 05/09/2023 Active Active Problems No known active problems Resolved Problems Problem Noted Date Diagnosed Date Resolved Date premature rupture of membranes (PPROM) with unknown onset of labor 05/03/202304/28 Social History Tobacco Use Types Packs/Day Years Used Date Smoking Tobacco: Never Smokeless Tobacco: Never Alcohol Use Standard Drinks/Week Comments Never 0 (1 standard drink = 0.6 oz pur e alcohol) CAGE ASSESSMENT Answer Date Recorded Cage unable to access Not on file 05/03/2023 Cage max number of drinks Not on file 2022 Cage Beverages a week Not on file 05/03/2023 Have you ever felt you should CUT down on your d rinking? 0 05/03/2023 Have you been ANNOYED by people criticizing your drinking? 0 05/03/2023 Have you felt GUILTY about your drinking? 0 05/03/2023 Have you had a drink first t elyssa in the morning (EYE-FORMULA CLERK) to steady your nerves or to get rid of a hangover? 0 05/03/2023 CAGE Questionnaire Score 0 023 Comments No Sex and Gender Information Value Date Recorded Sex Assigned at Not on file Legal Sex Female 8:15 AM EDT Gender Identity Not on file Sexual Orientation Not on file Last Filed Vital Signs Vital Sign Reading Time Taken Comments Blood Pressure 132/85 05/09/2023 8:57 AM EDT Pulse 84 05/09/2023 8:57 AM EDT Temperature 36.8 C (98.3 F) 05/09/2023 8:57 AM EDT Respiratory Rate 17 05/08/2023 4:21 PM EDT Oxygen Saturation 96% 05/09/2023 12:02 AM EDT Inhaled Oxygen Concentration - - Weight 88.5 kg (195 lb) 05/04/2023 5:17 AM EDT Height 144.8 cm (4' 9 ) 05/04/2023 5:17 AM EDT Body Mass Index 42.2 05/04/2023 5:17 AM EDT Plan of Treatment Health Maintenance Due Date Last Done Comments [facility]-Depression Screening 2002 [facility]-HIV Screening 2002 [facility]-Hepatitis C Screening 2002 [facility]-Infant/Child/Adol SDOH Screenings 2002 [facility]-Obesity Intervention 2008 [facility]- SDOH Screenings 2020 [facility]-Adult SDOH Screenings 2020 [facility]-Pap Smear 2023 [facility]O-PHQAB-18 Vaccine ( season) 2024 10/12/2021, 04/01/2021, 03/04/2021 [facility]-Influenza Vaccine (#1) 07/29/202511/06, 08/18/2023, 10/18/2022, Additional history exists [facility]-DTaP,Tdap,and Td Vaccines (8 - Td or Tdap) 11/06/2034 11/06/2024, 07/24/2013, 06/06/2006, Additional history exists [facility]-Zoster Vaccines (1 of 2) 2052 02/08/2008, 04/24/2003 [facility]-HIB Vaccines Completed 04/24/2003, 12/2001, 2002 [facility]-Hepatitis B Vaccines Completed 003, 2002, 2002 [facility]-IPV Vaccines Completed 06/06/2006, , 2002, Additional history exists [facility]-Varicella Vaccines Completed 02/08/2008, 2002 HPV Vaccines Completed 05/23/2014, 02/2014, 07/24/2013 [facility]-Hepatitis A Vaccines Completed 12/13/2017, 05/28 [facility]-Pneumococcal Vaccine: Pediatrics (0 to 5 Years) and At-Risk Patients (6 to 49 Years) Aged Out 08/17/2024 No longer eligible based on patient's age to complete this topic [facility]-Rotavirus Vaccines Aged Out No lo nger eligible based on patient's age to complete this topic Additional Health Concerns Infection Onset Date Last Indicated ESBL Comment:Urine culture collected 05/07/2023 resulted positive for Escherichia coli, an ESBL . This patient will require contact precautions indefinitely. 05/07/2023 05/07/2023 Insurance [facility] Advance Directives * Full Code (Latest Code Status on File) Date Activated Date Inactivated Comments 05/03/2023 8:40 AM 05/09/2023 7:09 PM Question Answer Comments Patient has decision-making capacity? Yes Care Teams Firestop/Containment Worker Relationship Specialty Start Date End Date Pcp, No [address] [place] [address] PCP - General Family Medicine 05/02/23
--- OUTSIDE RECORDS SUMMARY | 2025-06-10 10:24 | XMS_ITS | Patient Health Record ---
Author Organization [facility] [place] Address [address] [place] [address] Care Team Providers Care Cross Cut Saw Operator Name Role Phone SANDOR GONZALEZ Unavailable [phone] Sandor Gonzalez MD Unavailable Unavailable Allergies No Known Allergies Reason For Referral No Information Medications Medication SIG (Take, Route, Frequency, Duration) Notes Start Date End Date Status busPIRone HCl 10 MG 1 tablet Orally Twic e a day Active Loratadine 10 MG 1 tablet Orally Once a day Active Lexapro 20 MG 1 tablet Orally Once a day Active Active Albuterol Sulfate HFA 108 (90 Base) MCG/ACT 1 puff as needed Inhalation every 4 hrs Active Diflucan 200 MG 1 tablet Orally evelyn y for 1 days 09/30/2022 Active Azithromycin 250 MG 2 tablet on the t day, then 1 tablet daily for 4 days Orally Once a day for 5 day(s) 09/30/2022 Active Social History Tobacco Use: Social History Observation Description Date Details (start date - stop date) Never Smoker NA - NA Tobacco Use/Smoking Question Answer Notes Are you a nonsmoker Alcohol Screen (Audit-C) Question Answer Notes Did you have a drink containing alcohol in the p ast year? No Points 0 Interpretation Negative Tobacco use other than smoking: Question Answer Notes Are you an other tobacco user? No Problems Problem Type SNOMED Code ICD Code Onset Dates Problem Status W/U Status Risk Notes Problem Allergic rhinitis (J30.9) Active confirmed Plan Of Treatment No Information Insurance Providers Payer Name Payer Address Payer Phone Subscriber Number Group Number Insured Name Patient Relationship to Insured Coverage Start Date Coverage End Date [facility] MEDICAID [address] [place] [phone] [id number] [place] [employer] Self - patient is the insured Medical (General) History Medical History History ICD Code DEPRESSION AND ANXIETY Surgical History Surgery Date(Month/Year) WISDOM TEETH 2019
[2025-06-10 11:41] LABS: Hematocrit 32.6 % (37.0-47.0); Hemoglobin 10.8 g/dL (12.2-16.2); Immature Granulocytes % 0.6 %; Mean Corpuscular HGB Conc 33.1 g/dL (31.8-35.4); Mean Corpuscular Hemoglobin 31.0 pg (27.0-31.2); Mean Corpuscular Volume 93.7 fl (81-99); Nucleated Red Blood Cells % 0 %; Platelet Count 142 K/mm3 (142-424); Red Blood Count 3.48 M/mm3 (4.20-5.40); Red Cell Distribution Width-SD 42.8 fL; White Blood Count 9.6 K/mm3 (4.8-10.8)
[2025-06-10 11:53] LABS: Glucose 1 Hour 214 mg/dL (74-100)
[2025-06-11 12:20] LABS: RPR W/RFX Titers Nonreactive (Nonreactive)
== END 2025-06-10 23:59 | disposition home or self-care (01) ==
LOC: LAB 10:22
PROVIDERS: PCP Pediatrics; Visit Provider Nurse Practitioner Obstetrics & Gynecology
DX: R00.0 Tachycardia, unspecified (principal); O10.919 Unspecified pre-existing hypertension complicating pregnancy, unspecified trimester; Z3A.00 Weeks of gestation of pregnancy not specified
CPT/HCPCS: 36415; 82947; 85025; 86592

== ENCOUNTER 2025-06-12 07:29 | Outpatient (CLI) | payer OTHER, SELFPAY ==
--- OUTSIDE RECORDS SUMMARY | 2025-06-12 07:31 | XMS_ITS | Patient Health Record ---
Author Organization [facility] [place] Address [address] [place] [address] Care Team Providers Care Dry Finisher Name Role Phone SANDOR GONZALEZ Unavailable [phone] Sandor Gonzalez MD Unavailable Unavailable Allergies No [...] W/U Status Risk Notes Problem Allergic rhinitis (61444307) Allergic rhinitis (J30.9) Active confirmed Plan Of Treatment No Information Insurance Providers Payer Name Payer Address Payer Phone Subscriber Number Group Number Insured Name Patient Relationship to Insured Coverage Start Date Coverage End Date [employer] MEDICAID [address] [place] [address] [phone] [id number] [place] [employer] Self - patient is the insured Medical (General) History Medical History History ICD Code DEPRESSION AND ANXIETY Surgical History Surgery Date(Month/Year) WISDOM TEETH 2019
--- OUTSIDE RECORDS SUMMARY | 2025-06-12 07:31 | XMS_ITS | Clinical Summary ---
Author Organization Healthcare Address [address] [place] [address] Care Team Providers Care Microsoft Application Developer Name Role Phone Pcp, No Primary Care [...] drink first t elyssa in the morning (EYE-BLOW MOLD TECHNICIAN) to steady your nerves or to get [...] [facility]-Adult SDOH Screenings 2020 [facility]-Pap Smear 2023 [id number]-90 Vaccine ( season) 2024 10/12/2021, 04/01/2021, 03/04/2021 [...] require contact precautions indefinitely. 05/07/2023 05/07/2023 Insurance [facility] Advance Directives * Full Code (Latest Code Status on File) Date Activated Date Inactivated Comments 05/03/2023 8:40 AM 05/09/2023 7:09 PM Question Answer Comments Patient has decision-making capacity? Yes Care Teams Microsoft Application Developer Relationship Specialty Start Date End Date Pcp, No [address] [place] [address] PCP - General Family Medicine 05/02/23
[2025-06-12 08:09] LABS: Glucose,Fasting 110 mg/dl (74-100)
[2025-06-12 11:43] LABS: Glucose 1 Hour 194 mg/dL (74-100); Glucose 2 Hour 127 mg/dL (74-100); Glucose 3 Hour 129 mg/dL (74-100)
== END 2025-06-12 23:59 | disposition home or self-care (01) ==
LOC: LAB 07:30
PROVIDERS: PCP Pediatrics; Visit Provider Nurse Practitioner Obstetrics & Gynecology
DX: O10.919 Unspecified pre-existing hypertension complicating pregnancy, unspecified trimester (principal); Z3A.00 Weeks of gestation of pregnancy not specified
CPT/HCPCS: 36415; 82951

== ENCOUNTER 2025-06-16 15:37 | Outpatient (CLI) | payer OTHER, SELFPAY ==
--- OUTSIDE RECORDS SUMMARY | 2025-05-10 12:30 | XMS_ITS | Encounter Summary ---
Author Organization [facility] Address [address] [place] [address] Care Team Providers Care Health Sciences Program Coordinator Name Role Phone Mingo Limon MD Primary Care Provider [phone] Reason for Visit * Reason Comments Follow-up Medication follow up Encounter Details Date Type Department Care Team (Late st Contact Info) Description 05/10/2025 12:30 PM EDT Office Visit [facility] [address] [id number] SeFranchesca he, CONSUMER INSIGHTS INTERN [address] [place] [address] [place] [address] Palpitations (Primary Dx); Tachycardia Social History Tobacco [...] pressures to stop the medication. * Franchesca Sullivan APRN - 05/10/2025 1:11 PM EDTAssociated Problem(s): Palpitations Patient reports that the propranolol has been helping with her palpitations. She states that she is21 weeks and will need to switch to labetalol per her CHIEF LIBRARIAN MUSIC DEPARTMENT Dr. Kimbrough at [facility]. Patient has been instructed to start [...] states she will be seeing OB at [facility] [place] for high risk . She states she [...] will be following with High risk at [facility] [place] and her regular OBGYN she will be [...] need to switch to labetalol per her CHIEF LIBRARIAN MUSIC DEPARTMENT Dr. Kimbrough at [facility]. Patient has been instructed to start [...] Care Team (Late st Contact Info) Description 08/01/2025 10:45 AM EDT Office Visit [facility] MAT[facility]NAL MEDICINE [address] [place] [address] 08/01/2025 10:45 AM EDT Appointment [facility] [address] [place] [address] 08/09/2025 10:00 AM EDT Office Visit [facility] CARDIOLOGY [address] [place] [address] Franchesca Sullivan APRN [address] [place] [address] 08/19/2025 8:45 AM EDT Office Visit [facility] PRIMARY CARE [address] [place] [address] Mingo Limon MD [address] [place] [address] documented as of this encounter Visit Diagnoses Diagnosis Palpitations- Primary Tachycardia Unspecified tachycardia documented in this encounter Care Teams Health Sciences Program Coordinator Relationship Specialty Start Date End Date Mingo Limon MD [address] [place] [address] PCP - General Internal Medicine 07/30/22 documented as of this encounter
--- OUTSIDE RECORDS SUMMARY | 2025-05-10 13:15 | XMS_ITS | Encounter Summary ---
Author Organization [facility] Address [address] [place] [address] Care Team Providers Care Chief Human Resources Officer Name Role Phone Mingo Limon MD Primary Care Provider [phone] Reason for Visit * Reason Comments Urinary Tract Infection Encounter Details Date Type Department Care Team (Late st Contact Info) Description 05/10/2025 1:15 PM EDT Office Visit [facility] PRIMARY CARE [address] [place] [address] Mingo Limon MD [address] [place] [address] [place] [address] Acute cystitis without hematuria (Primary Dx); ADHD, [...] diagnosis by review of her history, with [place] forms showing the same. No comorbid sleep [...] with stability prefer to continue as per novelty printing machine operator. Of note we had transiently held ADHD [...] good stabilityand with her previous stability the novelty printing machine operator prefers her to stay on her regimen [...] Negative Negative Ketones, UA Negative Negative Specific [place] 1.010 1.005 - 1.030 Blood, UA Negative [...] diagnosis by review of her history, with [place] forms showing the same. No comorbid sleep [...] with stability prefer to continue as per novelty printing machine operator. Of note we had transiently held ADHD [...] Description 08/01/2025 10:45 AM EDT Office Visit [facility] MATERNAL MEDICINE [address] [facility] [address] [place] [address] 08/01/2025 10:45 AM EDT Appointment [facility] [address] [place] [address] 08/09/2025 10:00 AM EDT Office Visit [facility] CARDIOLOGY [address] [address] Franchesca Sullivan, INSPECTOR CANNED FOOD RECONDITIONING [address] [place] [address] 08/19/2025 8:45 AM EDT Office Visit [facility] PRIMARY CARE [address] [place] [address] Mingo Limon MD [address] [place] [address] [place] [address] documented as of this encounter Procedures Procedure [...] 1:49 PM EDT 05/10/2025 Comment:Urine Release to [facility] i N[facility]ative [facility] - 05/12/2025 6:37 AM EDT Performed at: 01 - [address] [id number] Neuroscientist: Dagoberto Campbell PhD, Phone: [phone] us Mingo Limon MD MICROBIOLOGY - GENERAL ORDERABLE S Final Result Performing Organization Address City/[facility]/ZIP Co de Phone Number [facility] (AMBULATORY) [address] [place] [address], [place] [phone] [facility] [address] [place] [address], [place] [phone] * (ABNORMAL) POC Urinalysis Dipstick (05/10/2025 1:38 PM EDT) Color Dark Yellow Yellow, Straw, Dark Yellow, Char [facility] Clarity, UA Cloudy(A) Clear [facility] Glucose, UA Negative Negative mg/dL [facility] Bilirubin Negative Negative [facility] Ketones, UA Negative Negative [facility] Specific [place] 1.010 1.005 - 1.030 [facility] Blood, UA Negative Negative [facility] pH, Urine 8.0 5.0 - 8.0 [facility] Protein, POC Negative Negative mg/dL [facility] Urobilinogen, UA Normal Normal, 0.2 E.U./dL [facility] Leukocytes Large (3+)(A) Negative [facility] Nitrite, UA Negative Negative [facility] Urine 05/10/2025 1:38 PM EDT us Mingo Limon MD POINT OF CARE TEST ORDERABLES Fi nal Result [facility]
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
--- OUTSIDE RECORDS SUMMARY | 2025-05-23 10:06 | XMS_ITS | Encounter Summary ---
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, antepartum History of delivery, currently Tachycardia History of gestational diabetes in prior , currently , unspecified gestational age Encounter for repeat ultrasound of pyelectasis, antepartum, not applicable or unspecified fetus Procedures [facility] Milton Puentes MD [facility] [address] [address] Phone: tel: fax: [facility] US PER DIAG CTR [address] [place] [address] Phone: tel: Referral ID Status Reason Start Date Expiration Date Visits Re quested Visits Authorized [id number] Closed 05/02/2025 08/01/2026 1 1 Reason for [...] not applicable or unspecified fetus Procedures US Replaced By [facility] Milton Puentes MD [address] [place] [address] [address] Phone: tel: fax: [facility] US PER DIAG CTR [address] [place] [address] Phone: tel: Referral ID Status Reason Start Date Expiration Date Visits Re quested Visits Authorized [id number] Closed 05/02/2025 08/01/2026 1 1 Encounter Details Date Type Department Care Team (Latest Contact Info) Description 05/23/2025 10:06 AM EDT - 05/23/2025 11:59 PM EDT Hospital Encounter [facility] US PER DIAG CTR [address] [place] [address] Milton Puentes MD [address] [place] [address] 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, antepartum; [...] Description 08/01/2025 10:45 AM EDT Office Visit [facility] MATERNAL MEDICINE [address] [place] [address] 08/01/2025 10:45 AM EDT Appointment [facility] US PER DIAG CTR [address] [place] [address] 08/09/2025 10:00 AM EDT Office Visit [facility] CARDIOLOGY [address] [place] [address] Franchesca Sullivan, NIRAV [address] [place] [address] 08/19/2025 8:45 AM EDT Office Visit [facility] PRIMARY CARE [address] [place] [address] Mingo Limon MD [address] [place] [address] [place] [address] documented as of this encounter Procedures Procedure Name Priority Date/Time Associated Diagnosis Comments US [facility] DIAGNOSTIC CENTER Routine 05/23/2025 11:41 AM EDT 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, antepartum History of delivery, currently Tachycardia History of gestational diabetes in prior , currently , unspecified gestational age Encounter for repeat ultrasound of pyelectasis, antepartum, not applicable or unspecified fetus documented in this encounter Results * [facility] (05/23/2025 11:41 AM EDT) Anatomical Region Laterality Modality Ultrasound 05/23/2025 10:5 2 AM EDT Narrative 05/23/2025 11:50 AM EDT PAT NAME: KARMEN GU MED REC#: [id number] DA: 2000 PAT GEND: F PAT TYPE: O EXAM RO: [id number] REF PHYS MILTON PUENTES Comparison Studies There [...] EFW (oz) 5 oz EFW by: Hadlock (HPV-SH-TB-FL) Extended Tibia 34.7 mm 23w 0d 40% Yocasta Fibula 33.3 mm 22w 1d 32% Yocasta Radius 33.5 mm 23w 5d 56% Yocasta Ulna 36.5 mm 24w 3d 69% Yocasta Cav. septi pel. tr 4.4 mm Electric Dolly Operator 3.4 mm CM 7.8 mm 94% Nicolaides [...] normal IVC: normal 3-vessel view: Appears normal 3-ydhyot-uhwzkml view: Appears normal Rt lung: Appears normal [...] weeks GA for growth Coding ======= Description: 84949-09 Detailed Patient Care Assistant: Jennifer Rbuy RDMS Physician: Sarah George MD, FACOG Electronically signed by: Sarah George MD, FACOG at: 11:50 Procedure Note Sarah George MD - 05/23/2025 PAT NAME: KARMEN GU MED REC#: [id number] DA: 2000 PAT GEND: F PAT TYPE: O EXAM RO: [id number] REF PHYS MILTON PUENTES Comparison Studies There are no relevant prior studies to which this study is beingcompared Patient Status Outpatient Indication ======== Concern for bilateral UTD. Bicornuate uterus. Previous PROM/PTD @32 wks Maternal Assessment Xknhyq395 cm Height (ft)4 ft Height (in)9 in Okihly48 kg Weight (lb)193 lb BMI41.07 kg/m Method ======= Transabdominal ultrasound examination. View: Limited by patient bodyhabitus ========= Rasmussen . Number of fetuses: 1 Dating ====== Method of dating:based on stated CHANTE GA by prior xoygpfqcav66 w + 1 d CHANTE by prior assessment:09/18/2025 Ultrasound examination on:05/23/2025 GA by U/S based upon:AC, BPD, Femur, HC GA by U/S23 w + 0 d CHANTE by U/S:09/19/2025 Assigned:based on stated CHANTE, selected on 05/23/2025 Assigned GA23 w + 1 d Assigned CHANTE:09/18/2025 gsyyya708 d Biometry Standard BPD53.0 mm 22w 1d 12% Hadlock OFD77.9 mm 25w 3d 98% Yocasta HC212.4 mm 23w 2d 41% Hadlock Cerebellum tr25.7 mm 23w 1d 82% Hill AC197.3 mm 24w 3d 80% Hadlock Femur38.4 mm 22w 2d 15% Hadlock Tezyawk26.0 mm 24w 2d 76% Yocasta HC / AC1.08 CYB071 g 23w 2d 54% Hadlock EFW (lb)1 lb EFW (oz)5 oz EFW by:Hadlock (XNO-EX-VB-FL) Extended Tibia34.7 mm 23w 0d 40% Yocasta Khjlea39.3 mm 22w 1d 32% Yocasta Fbazap47.5 mm 23w 5d 56% Yocasta Ulna36.5 mm 24w 3d 69% Yocasta Cav. septi pel. tr4.4 mm Vp3.4 mm CM7.8 mm 94% Nicolaides Nasal bone8.8 mm Rt Renal pelvis ap4.3 mm Lt Renal pelvis ap3.2 mm Head / Face / Neck Cephalic index0.68 <1% Nicolaides Extremities / Bony Struc FL / BPD0.72 FL / HC0.18 FL / AC0.19 Other Structures DSC282 bpm General Evaluation Cardiac activity present. FHR [...] view:Appears normal SVC:normal IVC:normal 3-vessel view:Appears normal 9-tgikno-qnpfuol view:Appears normal Rt lung:Appears normal Lt lung:normal [...] of uterine malformations:bicornuate uterus Cervix:Visualized Approach:Transabdominal Cervical .0 mm Ovaries / Tubes / Adnexa Rt ovary:Visualized Lt ovary:Visualized Impression Today's exam reveals a SIUP with biometry consistent with dates. Mildunilateral renal pelvic dilation. Otherwise anatomic survey appearsnormal. Fluid is normal. The placenta is anterior, high. The TA cervical length appears adequate Recommendation Follow up 32 weeks GA for growth Coding ======= Description:51554-57 Detailed Patient Care Assistant: Jennifer Ruby RDMS Physician: Sarah George MD, FACOG Electronically signed by: Sarah George MD, FACOG at: 1:50 us Milton Puentes MD [facility] US ORDERABLES Final Resul t documented in [...] fetus documented in this encounter Care Teams Case Liner Relationship Specialty Start Date End Date Mingo Limon MD [address] [place] [address] [place] [address] PCP - General Internal Medicine 07/30/22 documented as of this encounter
--- OUTSIDE RECORDS SUMMARY | 2025-05-23 10:30 | XMS_ITS | Encounter Summary ---
Author Organization [facility] Address [address] [place] [address] Care Team Providers Care Document Advisor Name Role Phone Mingo Limon MD Primary Care Provider [phone] Reason for Referral * Diagnostic Imaging (Routine) - Authorized Specialty Diagnoses / Procedures Referred By Contac t Referred To Contact Radiology Diagnoses Bicornuate uterus Procedures [facility] Sarah George MD [address] [facility] [address] [place] [address] Phone: tel: fax: [facility] US PER DIAG CTR [address] [place] [address] Phone: tel: Referral ID Status Reason Start Date Expiration Date V isits Requested Visits Authorized [id number] Authorized 05/23/2025 08/22/2026 1 1 Reason for Visit * Reason Comments bicornuate uterus; hx PTD (31 wk); hx GD M; mat. tachycardia Encounter Details Date Type Department Care Team (Late st Contact Info) Description 05/23/2025 10:30 AM EDT Office Visit [facility] MATERNAL MEDICINE [address] [facility] [address] [place] [address] Sarah George MD [address] [facility] [address] [place] [address] Bicornuate uterus (Primary Dx) Social History Tobacco [...] under imaging tab of patient chart in [facility] (Viewpoint report). Sarah George MD documented in this encounter Plan of Treatment Upcoming Encounters Date Type Department Care Team (Late st Contact Info) Description 08/01/2025 10:45 AM EDT Office Visit [facility] MATERNAL MEDICINE [address] [facility] [address] [place] [address] 08/01/2025 10:45 AM EDT Appointment [facility] US PER DIAG CTR [address] [facility] [place] [address] 08/09/2025 10:00 AM EDT Office Visit [facility] CARDIOLOGY [address] [address] SeFranchesca he, GENERAL MAINTENANCE HELPER [address] [place] [address] 08/19/2025 8:45 AM EDT Office Visit [facility] PRIMARY CARE [address] [place] [address] Mingo Limon MD [address] [place] [address] [place] [address] Scheduled Orders Name Type Priority Associated Diagnoses Orde r Schedule [facility] Imaging Routine Bicornuate uterus Expected: 07/18/2025, Expires: 05/23/2026 documented as of this encounter Visit Diagnoses Diagnosis Bicornuate uterus- Primary documented in this encounter Care Teams Document Advisor Relationship Specialty Start Date End Date Mingo Limon MD [address] [place] [address] PCP - General Internal Medicine 07/30/22 documented as of this encounter
--- OUTSIDE RECORDS SUMMARY | 2025-06-13 13:00 | XMS_ITS | Encounter Summary ---
Author Organization [facility] Address [address] [place] [address] Care Team Providers Care Mobile Mechanic Name Role Phone Mingo Limon MD Primary Care Provider [phone] Reason for Visit * Reason Comments Med Refill Encounter Details Date Type Department Care Team (Late st Contact Info) Description 06/13/2025 1:00 PM EDT Office Visit [facility] PRIMARY CARE [address] [place] [address] [place] [address] Mingo Limon MD [address] [place] [address] ADHD, predominantly inattentive type (Primary Dx); Anxiety [...] all of which were normal. Referred to [facility] cardiology who completed echo 06/14/2024 which [...] MD - 06/13/2025 1:34 PM EDTAssociated Problem(s): Gestational diabetes mellitus (GDM) in second trimester controlled on oral hypoglycemic drug Previous diagnosis of gestational diabetes with her 2022 , and recent testing through [facility] power technician reveals what appears to be a failed 1 hour 2-hour and 3-hour glucose challenge test, as such it appears she is progressing to a similar pattern. No current medications atthis time but keep regular follow-up with power technician. Of note she had been placed in [...] diagnosis by review of her history, with [place] forms showing the same. No comorbid sleep [...] with stability prefer to continue as per power technician. Of note we had transiently held ADHD [...] no SI/HI and handling her stressors appropriately. Emergency Communications Officer has recommendedher to continue on the regimen [...] diagnosis by review of her history, with [place] forms showing the same. No comorbid sleep [...] with stability prefer to continue as per power technician. Of note we had transiently held ADHD [...] , and recent testing through [facility] power technician reveals what appears to be a failed 1 hour 2-hour and 3-hour glucose challenge test, as such it appears she is progressing to a similar pattern. No current medications atthis time but keep regular follow-up with power technician. Of note she had been placed in [...] all of which were normal. Referred to [facility] who completed echo 06/14/2024 which was [...] follow up, ADHD monitoring. Mingo Limon MD [facility] documented in this encounter Plan of Treatment Upcoming Encounters Date Type Department Care Team (Late st Contact Info) Description 08/01/2025 10:45 AM EDT Office Visit [facility] MATERNAL MEDICINE [address] [place] [address] 08/01/2025 10:45 AM EDT Appointment [facility] PER DIAG CTR [address] [place] [address] 08/09/2025 10:00 AM EDT Office Visit [facility] CARDIOLOGY [address] [place] [address] Franchesca Sullivan, INDUSTRIAL PLANT CUSTODIAN [address] [place] [address] 08/19/2025 8:45 AM EDT Office Visit [facility] PRIMARY CARE [address] [place] [phone] Mingo Limon MD [address] [place] [address] documented as of this encounter Visit Diagnoses Diagnosis ADHD, predominantly inattentive type- Primary Attention deficit disorder without mention of hyperactivity Anxiety and depression Gestational diabetes mellitus (GDM) in second trimester controlled on oral hypoglycemic drug Mixed hyperlipidemia Palpitations documented in this encounter Care Teams Mobile Mechanic Relationship Specialty Start Date End Date Mingo Limon MD [address] [place] [address] PCP - General Internal Medicine 07/30/22 documented as of this encounter
--- OUTSIDE RECORDS SUMMARY | 2025-06-16 15:41 | XMS_ITS | Encounter Summary ---
Author Organization [facility] Address [address] [place] [address] Care Team Providers Care Foot And Ankle Surgeon Name Role Phone Mingo Limon MD Primary Care Provider [phone] Encounter Details Date Type Department Care Team (Latest Contact Info) Description 05/23/2025 Travel Social History Tobacco Use Types Packs/Day Years [...] Delivery Comme nts Yes 09/18/2025 Date entered ranajna or to episode creation Sex and Gender Information Value Date Recorded Sex Assigned at Female 07/18/2023 11:24 AM EDT Legal Sex Female 11:26 AM EDT Gender Identity Female 07/18/2023 11:24 AM EDT Sexual Orientation Not on file documented as of this encounter Plan of Treatment Upcoming Encounters Date Type Department Care Team (Late st Contact Info) Description 08/01/2025 10:45 AM EDT Office Visit [facility] [address] [place] [address] 08/01/2025 10:45 AM EDT Appointment [facility] US PER DIAG CTR [address] [place] [address] 08/09/2025 10:00 AM EDT Office Visit [facility] [address] [place] [address] Franchesca Sullivan, REFORESTATION WORKER [address] [place] [address] 08/19/2025 8:45 AM EDT Office Visit [facility] [address] [place] [address] [place] [address] Mingo Limon MD [address] [place] [address] [place] [address] documented as of this encounter Visit Diagnoses Not on filedocumented in this encounter Care Teams Foot And Ankle Surgeon Relationship Specialty Start Date End Date Mingo Limon MD [address] [place] [address] [place] [address] PCP - General Internal Medicine 07/30/22 documented as of this encounter
--- OUTSIDE RECORDS SUMMARY | 2025-06-16 15:41 | XMS_ITS | Encounter Summary ---
Author Organization [facility] Address [address] [place] [address] Care Team Providers Care Residential Framing Carpenter Name Role Phone Mingo Limon MD Primary Care Provider [phone] Encounter Details Date Type Department Care Team (Latest Contact Info) Description 06/13/2025 Travel Social History Tobacco Use Types Packs/Day [...] on file documented as of this encounter Functional Status documented as of this encounter Plan of Treatment Upcoming Encounters Date Type Department Care Team (Late st Contact Info) Description 08/01/2025 10:45 AM EDT Office Visit [facility] MEDICINE [address] [place] [address] [phone] 08/01/2025 10:45 AM EDT Appointment [facility] US PER DIAG CTR [address] [place] [address] 08/09/2025 10:00 AM EDT Office Visit [facility] CARDIOLOG[facility] [address] [place] [address] Franchesca Sullivan, BIT SETTER [address] [place] [address] 08/19/2025 8:45 AM EDT Office Visit [facility] [address] [place] [address] [place] [address] Mingo Limon MD [address] [place] [address] [place] [address] documented as of this encounter Visit Diagnoses Not on filedocumented in this encounter Care Teams Residential Framing Carpenter Relationship Specialty Start Date End Date Mingo Limon MD [address] [place] [address] [place] [address] PCP - General Internal Medicine 07/30/22 documented as of this encounter
--- OUTSIDE RECORDS SUMMARY | 2025-06-16 15:41 | XMS_ITS | Encounter Summary ---
Author Organization [facility] Address [address] [place] [address] Care Team Providers Care Cobbler Mckay Name Role Phone Mingo Limon MD Primary Care Provider [phone] Encounter Details Date Type Department Care Team (Late st Contact Info) Description 05/13/2025 Results Follow-Up [facility] [address] [place] [address] Mingo Limon MD [address] [place] [address] Social History Tobacco Use Types Packs/Day Years [...] on file documented as of this encounter Miscellaneous Notes * Telephone Encounter - Padmaja Gu MA - 05/13/2025 8:27 AM EDT I have left a vm for patient detailing results. If any questions they can call office. documented in this encounter Plan of Treatment Upcoming Encounters Date Type Department Care Team (Late st Contact Info) Description 08/01/2025 10:45 AM EDT Office Visit [facility] [address] [place] [address] 08/01/2025 10:45 AM EDT Appointment [facility] US PER DIAG CTR [address] [place] [address] 08/09/2025 10:00 AM EDT Office Visit [facility] [address] [place] [phone] Franchesca Sullivan W, HEALTH CLAIMS EXAMINER [address] [place] [address] 08/19/2025 8:45 AM EDT Office Visit [facility] [address] [place] [address] Mingo Limon MD [address] [place] [address] [place] [address] documented as of this encounter Visit Diagnoses Not on filedocumented in this encounter Care Teams Cobbler Mckay Relationship Specialty Start Date End Date Mingo Limon MD [address] [place] [address] [place] [address] PCP - General Internal Medicine 07/30/22 documented as of this encounter
--- OUTSIDE RECORDS SUMMARY | 2025-06-16 15:41 | XMS_ITS | Clinical Summary ---
Author Organization [facility] Address [address] [place] [address] Care Team Providers Care Physical Therapist Clinic Director Name Role Phone Pcp, No Primary Care [...] drink first t elyssa in the morning (EYE-EXERCISE INSTRUCTOR) to steady your nerves or to get [...] [facility]-Adult SDOH Screenings 2020 [facility]-Pap Smear 2023 [id number] Vaccine ( season) 2024 10/12/2021, 04/01/2021, 03/04/2021 [...] require contact precautions indefinitely. 05/07/2023 05/07/2023 Insurance [facility] Advance Directives * Full Code (Latest Code Status on File) Date Activated Date Inactivated Comments 05/03/2023 8:40 AM 05/09/2023 7:09 PM Question Answer Comments Patient has decision-making capacity? Yes Care Teams Physical Therapist Clinic Director Relationship Specialty Start Date End Date Pcp, No [address] [place] [address] PCP - General Family Medicine 05/02/23
--- OUTSIDE RECORDS SUMMARY | 2025-06-16 15:41 | XMS_ITS | Encounter Summary ---
Author Organization [facility] Address [address] [place] [address] Care Team Providers Care Hairspring Setter Name Role Phone Mingo Limon MD Primary Care Provider [phone] Encounter Details Date Type Department Care Team (Latest Contact Info) Description 05/10/2025 Travel Social History Tobacco Use Types Packs/Day [...] [facility] [address] [place] [address] 08/01/2025 10:45 AM EDT Appointment [facility] US [facility] [address] [place] [address] 08/09/2025 10:00 AM EDT Office Visit [facility] [address] [place] [address] Franchesca Sullivan, SEWER PIPE PRESS OPERATOR [address] [place] [address] [place] [address] 08/19/2025 8:45 AM EDT Office Visit [facility] [address] [place] [address] [place] [address] Mingo Limon MD [address] [place] [address] [place] [address] documented as of this encounter Visit Diagnoses Not on filedocumented in this encounter Care Teams Hairspring Setter Relationship Specialty Start Date End Date Mingo Limon MD [address] [place] [address] [place] [address] PCP - General Internal Medicine 07/30/22 documented as of this encounter
--- OUTSIDE RECORDS SUMMARY | 2025-06-16 15:41 | XMS_ITS | Patient Health Record ---
Author Organization [facility] Address [address] [place] [address] Care Team Providers Care Relish Maker Name Role Phone SANDOR GONZALEZ Unavailable [phone] Sandor Gonzalez MD Unavailable Unavailable Allergies No [...] W/U Status Risk Notes Problem Allergic rhinitis (12761343) Allergic rhinitis (J30.9) Active confirmed Plan Of Treatment No Information Insurance Providers Payer Name Payer Address Payer Phone Subscriber Number Group Number Insured Name Patient Relationship to Insured Coverage Start Date Coverage End Date [employer] MEDICA[employer] [address] [place] [phone] [id number] [place] [employer] Self - patient is the insured Medical (General) History Medical History History ICD Code DEPRESSION AND ANXIETY Surgical History Surgery Date(Month/Year) WISDOM TEETH 2019
--- OUTSIDE RECORDS SUMMARY | 2025-06-16 15:41 | XMS_ITS | Encounter Summary ---
Author Organization [facility] Address [address] [place] [address] Care Team Providers Care Reel Blade Bender Furnace Tender Name Role Phone Mingo Limon MD Primary Care Provider [phone] Reason for Visit * Reason Comments Med Refill Encounter Details Date Type Department Care Team (Late st Contact Info) Description 05/27/2025 Refill [facility] [address] [place] [address] [place] [address] Mingo Limon MD [address] [place] [address] ADHD, predominantly inattentive type Social History Tobacco Use Types Packs/Day Years [...] encounter Miscellaneous Notes * Telephone Encounter - Liberty Mckeon 05/27/2025 11:44 AM EDT Last seen on 05/10/2025. Follow up scheduled for 08/19/2025. TF documented in this encounter Plan of Treatment Upcoming Encounters Date Type Department Care Team (Late st Contact Info) Description 08/01/2025 10:45 AM EDT Office Visit [facility] [address] [facility] [address] [place] [address] 08/01/2025 10:45 AM EDT Appointment [facility] US PER DIAG CTR [address] [place] [address] 08/09/2025 10:00 AM EDT Office Visit [facility] [address] [phone] Franchesca Sullivan, CHEMICAL RECLAMATION EQUIPMENT OPERATOR [address] [place] [address] 08/19/2025 8:45 AM EDT Office Visit [facility] [address] [place] [address] [place] [address] Mingo Limon MD [address] [place] [address] [place] [address] documented as of this encounter Visit Diagnoses Diagnosis ADHD, 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
--- OUTSIDE RECORDS SUMMARY | 2025-06-16 15:41 | XMS_ITS | Encounter Summary ---
Author Organization [facility] Address [address] [place] [address] Care Team Providers Care Business Intelligence Etl Developer Name Role Phone Mingo Limon MD Primary Care Provider [phone] Encounter Details Date Type Department Care Team (Late st Contact Info) Description 05/16/2025 Telephone [facility] CARDIOLOGY [address] [place] [address] Franchesca Sullivan, SAUSAGE MACHINE OPERATOR [address] [place] [address] Social History Tobacco Use Types Packs/Day Years [...] encounter Miscellaneous Notes * Telephone Encounter - Danielle Restrepo MA - 05/22/2025 12:25 PM EDT Third attempt to contact patient. LVM to call back. Will send Harimata message. * Telephone Encounter - Ines Gonzales MA - 05/21/2025 9:35 AM EDT Lvm for patient to call back * Telephone Encounter - Concepción Aguilar RN - 05/20/2025 2:11 PM EDT LVM for pt to call back. * Telephone Encounter - Concepción Aguilar RN - 05/20/2025 12:48 PM EDT Called pt back in regards to her symptoms. She relates these symptoms are new to her. She feels symptoms occur approximately an hour after taking her morning meds. The shaking has improved, but her HR is staying around 130-140. Follow up scheduled for 08/09/25. Please advise. * Telephone Encounter - Nurys Curiel APRN - 05/20/2025 12:12 PM EDT Can someone call the patient and have her to let us know is that shaky feeling new or different? And her heart rate is this been no change on the medication? And is she checking her blood pressure? If not please have her check her blood pressure and see how it is running on the medication labetalol. * Telephone Encounter - Gi Del Rosario MA - 05/17/2025 12:53 PM EDT Pt called back. She started Labetalol last Tuesday. She is still having shaky feeling and HR 130-162. * Telephone Encounter - Ines Gonzales MA - 05/17/2025 12:50 PM EDT Attempted to call patient, no answer. * Telephone Encounter - Nina Burroughs RegSched Rep - 05/16/2025 4:12 PM EDT Attempting to call patient. Phone is not ringing. Will try again. * Telephone Encounter - Dorothea Pemberton RegSched Rep - 05/16/2025 4:09 PM EDT Patient called and LVM with questions regarding her labetalol. She is wondering how long it takes for it to be in her system and for her body to be adjusted to it. She is asking for a call back when possible. documented in this encounter Plan of Treatment Upcoming Encounters Date Type Department Care Team (Late st Contact Info) Description 08/01/2025 10:45 AM EDT Office Visit [facility] MATERNAL MEDICINE [address] [place] [address] 08/01/2025 10:45 AM EDT Appointment [facility] US PER DIAG CTR [address] [place] [address] 08/09/2025 10:00 AM EDT Office Visit [facility] CARDIOLOGY [address] [place] [address] Franchesca Sullivan, SAUSAGE MACHINE OPERATOR [address] [place] [address] 08/19/2025 8:45 AM EDT Office Visit [facility]IMARY [facility]ARE [address] [place] [address] Mingo Limon MD [address] [place] [address] documented as of this encounter Visit Diagnoses Not on filedocumented in this encounter Care Teams Business Intelligence Etl Developer Relationship Specialty Start Date End Date Mingo Limon MD [address] [place] [address] PCP - General Internal Medicine 07/30/22 documented as of this encounter
--- OUTSIDE RECORDS SUMMARY | 2025-06-16 15:41 | XMS_ITS | Encounter Summary ---
Author Organization [facility] Address [address] [place] [address] Care Team Providers Care Real Estate Sales Associate Name Role Phone Mingo Limon MD Primary Care Provider [phone] Reason for Visit * Reason Onset Date Comments FRANCHESCA BADILLO 05/08/2025 Encounter Details Date Type Department Care Team (Late st Contact Info) Description 05/08/2025 Telephone [facility] CARDIOLOGY [address] [place] [address] Franchesca Hare, EMS EDUCATOR [address] [place] [address] [place] [address] FRANCHESCA HARE-LUIS Social History Tobacco Use Types Packs/Day Years [...] encounter Miscellaneous Notes * Telephone Encounter - Linda Mason RegSched Rep - 05/08/2025 11:43 AM EDT Caller: Karmen Gu Relationship to patient: Self Best call back number: [phone] Chief complaint: Type of visit: FOLLOW UP Requested date: If rescheduling, when is the original appointment: NONE Additional notes:PATIENT HAS INSURANCE STRAIGHTENED OUT. HUB HAS NO SCHEDULING TIME FRAME SHE WAS LAST SEEN . PLEASE CALL THE PATIENT TO SCHEDULE. documented in this encounter Plan of Treatment Upcoming Encounters Date Type Department Care Team (Late st Contact Info) Description 08/01/2025 10:45 AM EDT Office Visit [facility] [address] [facility] [address] [place] [address] 08/01/2025 10:45 AM EDT Appointment [facility] US PER DIAG CTR [address] [place] [address] 08/09/2025 10:00 AM EDT Office Visit [facility] CARDIOLOGY [address] [address] Franchesca Hare W, EMS EDUCATOR [address] [place] [address] 08/19/2025 8:45 AM EDT Office Visit [facility] PRIMARY CARE [address] [place] [address] [facility] [place] [address] documented as of this encounter Visit Diagnoses Not on filedocumented in this encounter Care Teams Real Estate Sales Associate Relationship Specialty Start Date End Date Mingo Limon MD [address] [place] [address] [place] [address] PCP - General Internal Medicine 07/30/22 documented as of this encounter
--- OUTSIDE RECORDS SUMMARY | 2025-06-16 15:41 | XMS_ITS | Clinical Summary ---
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 15.8 mL 3 024 Active montelukast (Singulair) 10 MG tabletIndication s:Seasonal allergic rhinitis due to pollen Take 1 tablet by mouth Every Night. 30 tablet 3 024 Active Allergy Relief 10 MG tabletIndication s:Seasonal allergic rhinitis due to pollen Take 1 tablet by mouth Daily. 30 tablet 3 024 Active Additional Information Patient taking differently:10 mg OralAs Needed, Patient reports Claritin, Reported on 06/13/2025 Vit-Fe Fumarate-FA ( vitamin 27-0.8) 27-0.8 MG tablet tablet Take 1 tablet by mouth Daily. Active albuterol sulfate HFA 108 (90 Base) MCG/ACT inhalerIndicatio ns:Mild intermittent asthma without complication Inhale 2 puffs Every 4 (Four) Hours As Needed for Wheezing. 18 g 2 024 Active budesonide-formo terol (Symbicort) 160-4.5 MCG/ACT inhalerIndicatio ns:Mild intermittent asthma with acute exacerbation Inhale 2 puffs Every 4 (Four) Hours As Needed (Asthma). Rinse mouth with water after each use 10.2 g 1 025 Active escitalopram (LEXAPRO) 20 MG tabletIndication s:Anxiety and depression Take 1 tablet by mouth Daily. 90 tablet 1 025 Active labetalol (NORMODYNE) 200 MG tabletIndication s:Palpitations Take 1 tablet by mouth 2 (Two) Times a Day. 60 tablet 6 025 Active methylphenidate 36 MG CR tabletIndication s:ADHD, predominantly inattentive type Take 1 tablet by mouth Every Morning 30 tablet 025 Active methylphenidate (RITALIN) 5 MG tabletIndication s:ADHD, predominantly inattentive type 1 tablet orally at noon 30 tablet 025 Active busPIRone (BUSPAR) 15 MG tabletIndication s:Anxiety and depression Take 1 tablet by mouth 2 (Two) Times a Day. 180 tablet 1 025 Active buPROPion XL (WELLBUTRIN XL) 300 MG 24 hr tabletIndication s:Anxiety and depression Take 1 tablet by mouth Daily. 90 tablet 1 025 Active busPIRone (BUSPAR) 15 MG tabletIndication s:Anxiety and depression Take 1 tablet by mouth 2 (Two) Times a Day. 180 tablet 1 024 2024 Discontinued(R eorder) buPROPion XL (WELLBUTRIN XL) 300 MG 24 hr tabletIndication s:Anxiety and depression Take 1 tablet by mouth Daily. 30 tablet 2 025 2024 Discontinued(R eorder) methylphenidate 36 MG CR tabletIndication s:ADHD, predominantly inattentive type Take 1 tablet by mouth Every Morning 30 tablet 025 2024 Discontinued methylphenidate (RITALIN) 5 MG tabletIndication s:ADHD, predominantly inattentive type Take 1 tablet by mouth Daily With Lunch. 30 tablet 025 2024 Discontinued labetalol (NORMODYNE) 100 MG tabletIndication s:Palpitations,T achycardia Take 1 tablet by mouth 2 (Two) Times a Day. 30 tablet 11 025 2024 Discontinued amoxicillin-clav ulanate (AUGMENTIN) 875-125 MG per tabletIndication s:Acute cystitis without hematuria Take 1 tablet by mouth 2 (Two) Times a Day. 14 tablet 025 2024 Discontinued Active Problems Problem Noted Date Diagnosed Date Acute non-recurrent maxillary sinusitis 12/11/19 25 Assessment & Plan (12/11/2024 6:19 PM EST): With ongoing allergy symptoms subsequent to a viral URI type symptoms for the last few weeks, some progression of thickening discoloration a bit of facial pressure over the last handful of days felt to be consistent with sinusitis pattern. Initiate Z-Ariel to take as directed. She will also likely get further benefit from prednisone burst to benefit asthmatic response. Additional benefit of saline spray, nasal flushing. Continue treat for allergies which should give benefit. Advise if not improving. Need for vaccination 08/17/2024 Assessment & Plan (08/17/2024 10:44 AM EDT): Pneumococcal 20 valent vaccine given 08/17/2024 based on asthmatic history, patient will clarify if Tdap has been given up-to-date, if not she will obtain at convenience. Mixed hyperlipidemia 08/17/2024 Assessment & Plan (06/13/2025 1:35 PM EDT): 05/21/2024 total cholesterol 147, triglycerides 230, HDL 42, LDL 68. Modest increased triglycerides and lower than desired HDL but still overall fairly good profile. Recommend healthy diet, exercise, weight loss. No indication for medication at this time. Plan to recheck blood work yearly. Assessment & Plan (11/06/2024 11:26 AM EST): 05/21/2024 total cholesterol 147, triglycerides 230, HDL 42, LDL 68. Modest increased triglycerides and lower than desired HDL but still overall fairly good profile. Recommend healthy diet, exercise, weight loss. No indication for medication at this time. Recheck blood work yearly. Assessment & Plan (08/17/2024 10:51 AM EDT): 05/21/2024 total cholesterol 147, triglycerides 230, HDL 42, LDL 68. Modest increased triglycerides and lower than desired HDL but still overall fairly good profile. Recommend healthy diet, exercise, weight loss. No indication for medication at this time. Monitor yearly. Tachycardia 05/28/2024 Assessment & Plan (05/10/2025 1:12 PM EDT): Patient reports that she can tell when she does not take her beta-brooke. She states that if she misses it her heart rate goes up and she continues to have worsening palpitations. She reports she is having tachycardia about 3 times a week. Will change the propranolol to labetalol 100 mg twice a day. Patient has been given instructions to monitor her blood pressure and if she is experiencing low blood pressures to stop the medication. Assessment & Plan (11/16/2024 4:39 PM EST): Patient reports that when she started taking the propranolol 20 mg just 1 pill a day that she did notice a difference in her heart rate. She reports that it has been a little more controlled but still feeling some fast beats. Patient reports that she worries about her blood pressure dropping down to low and she will start taking propranolol 20 mg 2 tablets daily and if her blood pressure does not drop she will go to the prescribed dosage. Assessment & Plan (06/14/2024 4:32 PM EDT): Normal Holter monitor symptoms associated with tachycardia. Patient started on Metoprolol Succ. 25mg daily. Patient reports that she and her has decided they are going to try and get . Switched patient from metoprolol to propranolol 20mg daily. Instructed patient we may need to switch to labetalol as is is more tolerated during . Assessment & Plan (06/07/2024 12:28 PM EDT): Her resting heart rate has been in the 100-115 range .The highest heart rates she has noticed was 170 bpm. She was evaluated in the ER last night for tachycardia and chest pain. Workup included EKG, labs, and chest xray. Records unavailable at this time. She reports that on Tuesday she bent over to brass pickler her child and her heart rate went up to 140bpm and her legs and arms became very heavy and weak. Since that time, she has felt bad and her heart rate has been elevated. Holter monitor and echo pending. She sent monitor in on Tuesday, echo is scheduled next week. -Trial of Metoprolol succinate 25mg daily -Monitor BP and heart rate closely at home -Call office if symptoms worsen. Assessment & Plan (05/28/2024 9:50 AM EDT): Her resting heart rate has been in the 100-115 range .The highest heart rates she has noticed was 170 bpm. Her heart rate today is 111 bpm. EKG from 05/17/2024 showed sinus tachycardia with a rate of 112 bpm and possible left atrial enlargement. -7-day Holter monitor and echocardiogram - May need beta-brooke if tachycardia persists Palpitations 05/17/2024 Assessment & Plan (06/13/2025 1:35 PM EDT): With increase in palpitations as of 05/17/2024, EKG obtained which was nonconcerning, and fasting blood work was obtained including thyroid panel, magnesium all of which were normal. Referred to [facility] cardiology who completed echo 06/14/2024 which was normal and had nonconcerning Holter monitor. Initially placed on metoprolol 25 mg ER daily, then switched to propranolol 20 mg, most recently at 05/10/2025 switched over to labetalol 100 mg twice daily which she is taking with good tolerability. Keep follow-up with cardiology. Assessment & Plan (05/10/2025 1:11 PM EDT): Patient reports that the propranolol has been helping with her palpitations. She states that she is 21 weeks and will need to switch to labetalol per her [facility] [employer] Dr. Kimbrough at [facility]. Patient has been instructed to start out with 1 tablet daily and check her blood pressures at home. She reported that she had had some low blood pressure while in the ER last week. Labetalol 100 mg twice a day patient to start with 1 tablet daily and if tolerating she may take 2 tablets daily. Assessment & Plan (11/16/2024 4:38 PM EST): Patient reports that she had not been taking the propranolol as prescribed. She did start taking the 20 mg daily instead of 3 times a day. I have instructed patient to take all medications as prescribed. Patient states that she will start taking propranolol 20 mg twice a day and if her blood pressure stays well-controlled she will increase it to 3 times a day. Assessment & Plan (08/17/2024 10:45 AM EDT): With increase in palpitations as of 05/17/2024, EKG obtained which was nonconcerning, and fasting blood work was obtained including thyroid panel, magnesium all of which were normal. Referred to [facility] cardiology who completed echo 06/14/2024 which was normal and had nonconcerning Holter monitor. Initial metoprolol 25 mg ER daily, switch to propranolol 20 mg in the potential she could get in the future this would prefer medicine. Overall she is clinically feeling better on regimen medicine. Keep follow-up with [facility] cardiology. Assessment & Plan (06/14/2024 4:33 PM EDT): ECHO 06/14/24 Normal EF 66-70%. Normal diastolic function. Normal RVSP. Controlled with BB. Assessment & Plan (06/07/2024 12:25 PM EDT): Holter monitor and echo pending. -Trial of metoprolol succinate 25mg daily Assessment & Plan (05/28/2024 9:47 AM EDT): Increasing palpitations and tachycardia over the last several months. - 7-day Holter monitor for further evaluation - Echocardiogram to assess valvular function Assessment & Plan (05/17/2024 5:55 PM EDT): Increasing pattern of palpitations over the last couple months but especially over the last week or so. No new caffeine intake, Concerta is a longstanding medicine is likely not a likely culprit, although I will have her hold it to help benefit of symptoms. These episodes occur in the last week or 2, occurring 2-3 times daily lasting a couple minutes with a sense of faster heavier heartbeat and sometimes may be an irregular sense although her Apple Watch never appreciates that. EKG today 05/17/2024 overall nonconcerning without any notable change compared to 04/30/2022. I will obtain additional screening blood work that she is partly due to to assess potential contributing factors with CBC, CMP, UA, lipid panel, TSH, free T4, hemoglobin A1c and magnesium with most interested in electrolytes, thyroid function, and even possibly anemia as a contributing factor to the sensations. As it is too late in the afternoon have to obtain today she will come by tomorrow around lunch to have laboratory investigations obtained. I will also go ahead and refer to cardiology, as with this progressing pattern I feel she would benefit from further cardiac investigations including consideration of Holter monitor, echocardiogram, etc. as per their discretion. I appreciate that input. Encounter for general adult medical examination with abnormal findings 05/17/2024 Assessment & Plan (08/17/2024 10:43 AM EDT): Screening blood work 05/21/2024, plan to recheck yearly. Pneumococcal 20 valent vaccine updated 08/17/2024 based on asthmatic history. Tdap appears to be possibly out of date as given 07/24/2013 but she may have had 3 or OB/diet and she will clarify, if not given plan to obtain. Pap smear 08/25/2023 through gynecology with ASCUS pattern with HPV positive but negative high risk HPV. Follow-up visit pending 08/27/2024 with management per results of gynecology. Disorder of both eustachian tubes 03/01/2024 Assessment & Plan (03/01/2024 10:19 AM EDT): The patient's mild residual positional dizziness is now felt to be related to eustachian tube dysfunction from allergies and not the previous concussion as discussed 02/22/2024. As such resumption of allergy medicines as per that assessment plan, if not improving we could consider short course of prednisone. Additional benefit of saline spray, nasal flushing. Advise concerns. Contusion of head, subsequent encounter 02/22/20 Assessment & Plan (03/01/2024 10:51 AM EDT): Injury occurring 02/21/2024 when she accidentally slipped down a small vent, small distance but caused her to hit her head on the left aspect of the head just above the ear. As initially assessed, notable soreness in head but no loss of consciousness. As of today's visit 03/01/2020 for full resolution of any concerns of contusion, no pain to palpation. No concerning signs of bruising around the ear. Eardrum itself has some moderate fluid behind it related to her allergies but no perforation, ear canal is clear. No further concerns in this regard. Assessment & Plan (02/22/2024 9:09 AM EDT): Injury occurring yesterday 02/21/2024 when she accidentally slipped down a small vent, small distance but caused her to hit her head on the left aspect of the head just above the ear. Notable soreness in head but no loss of consciousness, and she does have a little bit of mild sense of dizziness when she stands up, but not severe and slowly improved compared to yesterday. No concerning signs of bruising around the ear. Eardrum itself has some moderate fluid behind it related to her allergies but no perforation, ear canal is clear. As such most consistent with contusion pattern with localized pain but not concerns of any intracranial process. Dizziness 02/22/2024 Assessment & Plan (03/01/2024 10:51 AM EDT): When initially assessed 02/22/2020 for some mild dizzy sensation with sitting to standing, with equivocal [place]-Hallpike maneuver which has since resolved. At that time felt to be possibly somewhat secondary to concussion symptoms but at this time she has returned to a baseline pattern which is more related to eustachian tube dysfunction pattern, no signs of any perforation of the TM. No hearing difficulties. Tympanic membrane looks good other than fluid behind it. No further treatment necessary. Assessment & Plan (02/22/2024 9:06 AM EDT): Patient has a little bit of mild dizzy sensation with sitting to standing, although she did elicit a bit of a dizzy sensation with [place]-Hallpike maneuver to the left she did not have the nystagmus the eye as such not technically positive, and with associated fluid behind the left TM which is more related to allergies, ultimately I feel like the sense of dizziness is a little residual related to her injury if she hit her head and associated fluid behind the TM. Ear canals clear, TM with no sign of perforation. I expect this should improve over the next days, when I reassess her in 1 week's time we will recheck the Wes-Hallpike maneuver to see if there is any persistence in this regard. Concussion without loss of consciousness 024 Assessment & Plan (03/01/2024 10:50 AM EDT): As assessed initially 02/22/2024, mild concussion symptoms and as manifest by a little bit of diffuse headache, bit of a foggy and tired sensation. Full resolution of symptoms 3 to 4 days later, says she has had no symptoms for about 4 days in that regard, with reassuring examination findings. I would recommend another 3 to 4 days of full avoidance of any contact activities then she could return to normal activities fully. She can start exercising to toleration. Advise any recurrence. Assessment & Plan (02/22/2024 9:10 AM EDT): Patient with mild concussion symptoms and as manifest by a little bit of diffuse headache, bit of a foggy and tired sensation but otherwise she feels at baseline. Already doing a little bit better today. As such until this fully resolves plus another week I would avoid any contact activities. This should improve over the next days, and I will reassess how she is doing in 1 week's time or sooner as needed. Fall on same level as cause of accidental injury 02/22/2024 Assessment & Plan (02/22/2024 9:12 AM EDT): Partial fall into a small event, otherwise in the same level at home environment on 02/21/2024. Home accident 02/22/2024 Assessment & Plan (02/22/2024 9:11 AM EDT): Partial fall into a small event, otherwise in the same level at home environment on 02/21/2024. Encounter for other contraceptive management 06/2024 Assessment & Plan (01/05/2024 12:51 PM EST): Patient previously been using NuvaRing through her head housekeeper, but has interested in switching over to contraceptive patches but unfortunately she needs a BMI of less than 30 to qualify in that regard a height of 58 to 59 inches, this still puts her BMI in the 35 range, and as patient has interest in pursuit of contraception with patches, BMI needs to be less than 30. Please see assessment plan for obesity further discussion. Vaginal candidiasis 04/26/2023 Assessment & Plan (04/26/2023 5:17 PM EDT): 30 weeks , which is can be a fairly typical presentation. Recommendation to avoid Diflucan in if possible, would like to do initial treatment clotrimazole 1% intravaginal cream 5 g daily for 7 days. If that is refractory to treatment she could discuss with her OB/head housekeeper currently with concern, about next treatment option. Recommend benefit of probiotic daily. Dysuria during in third trimester 03/30 Assessment & Plan (04/26/2023 5:16 PM EDT): Questionable dysuria versus just normal urination as increasing in , with also some yeast infection symptoms contributing to the symptom presentation. Urinalysis overall reassuring with only trace leukocyte Estrace felt to be consistent with yeast infection pattern. At this time I do not see indication for treatment UTI, advise any worsening. Gestational diabetes mellitu s (GDM) in second trimester controlled on oral hypoglycemic drug 04/13/2023 Assessment & Plan (06/13/2025 1:34 PM EDT): Previous diagnosis of gestational diabetes with her 2022 , and recent testing through [facility] line person reveals what appears to be a failed 1 hour 2-hour and 3-hour glucose challenge test, as such it appears she is progressing to a similar pattern. No current medications at this time but keep regular follow-up with line person. 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 Santos, line person and [facility][1]. Plan in place with potential complications of transition to [facility] if she delivers earlier has significant complication but she is overall doing well. She does have a new recent diagnosis of gestational diabetes with today's hemoglobin A1c of 5.2% which alludes to the fact that prior to the she had no prediabetic tendency and she was in very much normal range. I did discuss the potential this could predict some future risk for diabetes, which is also notable as her father had early onset type 2 diabetes mellitus. Nonetheless keep regular follow-up with OB/head housekeeper who has placed her on glipizide 5 mg nightly, she continues monitoring glucose measurements. Acute cystitis without hematuria 12/02/2022 Assessment & Plan (05/10/2025 2:07 PM EDT): Currently 21 weeks , with onset of typical UTI type symptoms in the last 2 days with urinary frequency, urgency, incomplete voiding but not any burning. Nonetheless very suspicious for previous UTI pattern. No significant abdominal tenderness, a little crampiness couple days ago which is improved. No fevers or chills. Energy and appetite is otherwise good. No flank pain. Urinalysis with cloudy appearance and 3+ leukocytes, consistent with UTI. In also go ahead send urine culture help guide any need for management change. Initiate Augmentin 875/125 twice daily x7 days as is recommended in . Push fluids. She also has ongoing regular follow-up with gynecology. Advise concerns. Assessment & Plan (12/02/2022 6:07 PM EST): Currently about 9 weeks , with onset of typical UTI type symptoms in the last couple days with some urinary frequency, urgency and burning. No significant abdominal tenderness, a little crampiness couple days ago which is improved. No fevers or chills. Energy and appetite is otherwise good. No flank pain. Historically is fairly atypical presentation UTI although her symptoms today are suspicious despite urinalysis looking quite clear. Initiate Augmentin 875/125 twice daily x7 days as is recommended in . Push fluids. She does follow-up with gynecology next week where they would recheck her urine if she is not doing better. Advised concerns. Viral syndrome 10/01/2022 Assessment & Plan (11/19/2024 11:49 AM EST): Flu screen negative, COVID-19 testing negative, strep screen negative, as the patient had these done early in the morning before she had to go to work, prior to her telemedicine visit. Consistent with another viral syndrome which is common in community. Telemedicine visit does limit some ability to assess, her lungs appear to be clear with no exertional cough, ears have a little pressure but no pattern suspicious for ear infection, though advise new onset fever or ear pain. This point she has 24 hours and his symptoms, expectation of a couple days of similar symptoms and gradual improvement. Advise new onset fever worsening. Notes provided for work. Advise concerns. Assessment & Plan (01/16/2024 12:28 PM EST): Flu screen negative, COVID-19 testing negative. Consistent with another viral syndrome which is common in community. Symptomatic treatment with saline spray, cool-mist humidifier, Tylenol/Advil as needed. Patient Clines need for cough or cold medicine. Expected course of gradual improvement in the next days. Advised new onset fever or worsening. Assessment & Plan (09/02/2023 10:06 AM EDT): Strep screen negative, flu screen negative, COVID-19 testing negative, RSV negative. Consistent with another viral syndrome which is common in community with no lower respiratory signs or symptoms concern, good hydration. Symptomatic treatment with saline spray, cool-mist humidifier, Tylenol/Advil as needed. Expected course of another couple days of symptoms and gradual improvement. Advise any worsening. Assessment & Plan (10/01/2022 5:28 PM EDT): Strep screen negative, flu screen negative, COVID-19 testing negative. Consistent with another viral illness. No signs or symptoms of lower respiratory involvement. Recommend symptomatic treatment saline spray, cool-mist humidifier, Tylenol/Advil as needed. With sore throat I did offer prednisone burst to the benefit symptoms but she declines the need. Advised new onset fever worsening. Sore throat (viral) 10/01/2022 Assessment & Plan (11/19/2024 11:47 AM EST): Strep screen negative, please see viral syndrome for other details. Assessment & Plan (11/24/2023 5:36 PM EST): Modest sore throat over the last days, with strep screen negative today. Consistent with viral illness, recommend symptomatic treatment with lozenges, gargling, Chloraseptic spray, Tylenol/Advil as needed. Vies if not improving. Assessment & Plan (09/02/2023 10:06 AM EDT): Screen negative, please see viral syndrome further details. Assessment & Plan (01/18/2023 5:33 PM EST): Overall mild sore throat pattern, and I was able to visually see her throat quite well despite telemedicine visit and she does has mucus and a little irritation but no pattern of pharyngitis. I feel this is related to her drainage, such treat with allergy should benefit. Nonetheless of her throat continues to be sore in the next couple days, I would be happy to swab her for strep throat at her convenience. Nonetheless I do not see a need to do so based on her appearance and presentation consistent with drainage pattern. Assessment & Plan (10/01/2022 5:28 PM EDT): Strep screen negative, please otherwise refer to assessment plan for viral syndrome for details. Costochondritis, acute 08/06/2022 Assessment & Plan (08/06/2022 5:42 PM EDT): Lungs are clear on exam, clearly costochondritis on examination and through presentation. Recommend symptomatic treatment with anti-inflammatories including prednisone followed by naproxen for another 7 to 10 days. Heat versus ice at the location. Recommend stretching. This can wax and wane, and can become somewhat recurrent. Advise if not improving. ADHD, predominantly inattentive type 08/06/2022 Assessment & Plan (06/13/2025 1:32 PM EDT): Inattention subtype with formal diagnosis on 11/17/2018, although she had reported similar diagnosis in her elementary years. Typical pattern of this diagnosis by review of her history, with Joice forms showing the same. No comorbid sleep [...] with stability prefer to continue as per line person. Of note we had transiently held ADHD medicine in April 2024 to see if there is exacerbating palpitations but did not have any effect. She understands his controlled substance. Plan to do urine drug screen with next blood work. 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 Typical pattern of this diagnosis by review of her history, with Joice forms showing the same. No comorbid sleep [...] both today on 05/10/2025. She is currently but doing well on regimen and with stability prefer to continue as per line person. Of note we had transiently held ADHD medicine in April 2024 to see if there is exacerbating palpitations but did not have any effect. She understands his controlled substance. We forgot to do a urine drug screen with her last blood work, plan to obtain at her next full follow-up visit. No concerns of inappropriate use. 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 Typical pattern of this diagnosis by review of her history, with Joice forms showing the same. No comorbid sleep [...] midday, number 30 tablets both today on 11/06/2024. Of note we had transiently held ADHD medicine in April 2024 to see if there is exacerbating palpitations but did not have any effect. She understands his controlled substance. We forgot to do a urine drug screen with her last blood work, plan to obtain at follow-up visit. No concerns of inappropriate use. Assessment & Plan (08/17/2024 10:49 AM EDT): Inattention subtype with formal diagnosis on 11/17/2018, although she had reported similar diagnosis in her elementary years. Typical pattern of this diagnosis by review of her history, with Joice forms showing the same. No comorbid sleep [...] off after about 5 or 6 hours. As such we will add methylphenidate 5 mg short acting midday to her regimen. She did well on this regimen previous with day dosing, as such I will allow her to follow-up in 3 months but if she is having poor efficacy or any side effects I would recommend her following up in a month. As such refills provided for methylphenidate ER 36 mg number 30 tablets and methylphenidate 5 mg midday, number 30 tablets both today on 08/17/2024. Of note we had transiently held ADHD medicine in April 2024 to see if there is exacerbating palpitations but did not have any effect. She understands his controlled substance. As we forgot to do a urine drug screen with her last blood work, plan to obtain at follow-up visit. No concerns of inappropriate use. Assessment & Plan (05/17/2024 5:48 PM EDT): Inattention subtype with formal diagnosis on 11/17/2018, although she had reported similar diagnosis in her elementary years. Typical pattern of this diagnosis by review of her history, with Joice forms showing the same. No comorbid sleep [...] personality suppression, on/off affect, appetite suppression. She continues to do well from an ADHD perspective. She understands his controlled substance. Refill provided for methylphenidate ER 36 mg number 30 tablets last on 04/03/2024 as such she could be due at any time but she is using mostly just for workdays. urine drug screen when she follows up for her physical in spring 2023. Currently as of 05/17/2024 visit, I would like her to hold the Concerta at least for the next days to see how the effect is on her palpitation/heart rate. She has been on this medicine for a long time without these issues and as such I do not think the Concerta is causing palpitations but it may just be exacerbating the pattern. Once we have better clarification of palpitation pattern we could then resume the medicine more regularly. 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 Typical pattern of this diagnosis by review of her history, with Joice forms showing the same. No comorbid sleep [...] personality suppression, on/off affect, appetite suppression. She continues to do well from an ADHD perspective. She understands his controlled substance. Refill provided for methylphenidate ER 36 mg number 30 tablets today 02/22/2024. Plan urine drug screen when she follows up for her physical in spring 2023. Assessment & Plan (01/05/2024 12:48 PM EST): Inattention subtype diagnosis formally on 11/17/2018 with previous elementary or diagnoses. Please see most recent note in detail from 11/24/2023. Main relevant concern is that the methylphenidate ER 36 mg limits the patient's abilities phentermine therapy for weight loss, as those are both stimulant medications. As such the only other good option would be a GLP-1 agonist which we proceeded. Continue her methylphenidate unchanged, we will reassess otherwise at follow-up visit. Advise concerns. 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 Typical pattern of this diagnosis by review of her history, with Anastacia forms showing the same. No comorbid sleep difficulty. Final prescription had been methylphenidate ER 36 mg dosing, but discontinued when she completed high school and she felt like she no longer required it. Comorbid anxiety and depressive symptoms, which see benefit of treatment of ADHD symptoms. Resumption on 07/18/2023 of methylphenidate ER 36 mg tablet, with continued good control. She has found that using the medicine on the weekend is more beneficial to her as when she misses doses she does not do as well. She continues to be pleased with how she is doing from ADHD treatment perspective no concerning side effects including no headache, stomach upset, personality suppression, on/off affect, appetite suppression. She continues to do well from an ADHD perspective. She understands his controlled substance. When she is next in the office we will plan to do urine drug screen as is typical, and a controlled substance documentation form. With stability, follow-up 3 months time, sooner as needed. 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 Typical pattern of this diagnosis by review of her history, with Anastacia forms showing the same. No comorbid sleep difficulty. Final prescription had been methylphenidate ER 36 mg dosing, but discontinued when she completed high school and she felt like she no longer required it. She has some comorbid anxiety and depressive symptoms, which was likely being exacerbated by breakthrough ADHD symptoms. Please refer to that assessment plan for details but she is doing better with treatment. Initiation last month on 07/18/2023 of methylphenidate ER 36 mg tablet, with no concerning side effects including no headache, stomach upset, personality suppression, on/off affect, appetite suppression. She feels she has done very well, she is able to concentrate better, be on task and she feels the medicine is lasting through the day. She is overall very pleased with how she is doing and again feels that it is helping some of her secondary anxiety pattern. She understands his controlled substance. When she is next in the office we will plan to do urine drug screen as is typical, and a controlled substance documentation form. With stability, follow-up 3 months time, sooner as needed. 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 Typical pattern of this diagnosis by review of her history, with Anastacia forms showing the same. No comorbid sleep difficulty. Final prescription had been methylphenidate ER 36 mg dosing, but discontinued when she completed high school and she felt like she no longer required it. She has some comorbid anxiety and depressive symptoms which are likely exacerbating somewhat, but as of appointment today 07/18/2023, she does feel that especially at work she has inattention and distractibility that can limit the efficacy of her job and she does suspect it may exacerbate some of her mood difficulties, as such she would like to try back on the medicine. Initiate methylphenidate ER 36 mg tablet, caution headache, stomach upset, personality suppression, on/off affect, appetite suppression. She understands his controlled substance. When she is next in the office we will plan to do urine drug screen as is typical, and a controlled substance documentation form. Follow-up in 1 month's time to reassess, sooner as needed. 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 Typical pattern of this diagnosis by review of her history, with apparent Joice forms showing the same, with a long-time term pattern of in attention ADHD that was not previously treated. No comorbid sleep difficulty. Final prescription had been methylphenidate ER 36 mg dosing, but discontinued when she completed high school and she no longer requires in adulthood. Current flare of her mood is not felt to be contributed from ADHD pattern of symptoms, but we could always reconsider stimulant medicine in future as an adult if she were having inattention concerns that were causing difficulties in work. 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 Typical pattern of this diagnosis by review of her history, with apparent Joice forms showing the same, with a long-time term pattern of in attention ADHD that was not previously treated. No comorbid sleep difficulty. Final prescription had been methylphenidate ER 36 mg dosing, but discontinued when she completed high school and she no longer requires in adulthood. Advise any concerns. Anxiety and depression 08/06/2022 Assessment & Plan (06/13/2025 1:34 PM EDT): Initially discussed in detail 08/26/2020 with initiation [...] benefit. She was generally doing well but until the end of her in May 2023, where she had a premature infant requiring NICU stay with understandably increased stressors, as such we added Wellbutrin 150 mg XL daily to regimen Lexapro and buspirone, and increased Wellbutrin 150 mg XL up to 300 mg XL dosing today on 11/06/2024. No SI/HI. She continues to do well and with this stability, and as she has been doing well has been recommended by gynecology to continue regimen through . Continue lifestyle modifications to benefit mood. Reassess at follow-up visit. Assessment & Plan (05/10/2025 2:10 PM EDT): Initially discussed in detail 08/26/2020 with initiation [...] benefit. She was generally doing well but until the end of her in May 2023, where she had a premature requiring NICU stay with understandably increased stressors, as such we added Wellbutrin 150 mg XL daily to regimen Lexapro and buspirone, and increased Wellbutrin 150 mg XL up to 300 mg XL dosing today on 11/06/2024. No SI/HI. She continues to do well and with this stability has been referred by gynecology to continue regimen through . Continue lifestyle modifications to benefit mood. Reassess at follow-up visit. Assessment & Plan (11/06/2024 11:25 AM EST): Initially discussed in detail 08/26/2020 with initiation [...] benefit. She was generally doing well but until the end of her in May 2023, where she had a premature requiring NICU stay with understandably increased stressors, as such we added Wellbutrin 150 mg XL daily to regimen Lexapro and buspirone. Doing quite well to have elevated breakthrough anxiety, as such we will increase Wellbutrin 150 mg XL up to 300 mg XL dosing today on 11/06/2024. No SI/HI. Continue lifestyle modifications to benefit mood. Reassess at 3-month follow-up Assessment & Plan (08/17/2024 10:42 AM EDT): Initially discussed in detail 08/26/2020 with initiation [...] benefit. She was generally doing well but until the end of her in May 2023, where she had a premature requiring NICU stay with understandably increased stressors, as such we added Wellbutrin 150 mg XL daily to regimen Lexapro and buspirone. Please with current regimen medicine. No SI/HI. Continue regimen unchanged. If she does well at follow-up visit we could consider weaning. Continue lifestyle modifications to benefit mood. Advise concerns. Assessment & Plan (05/17/2024 5:48 PM EDT): Longstanding pattern for which she is on regimen of bupropion, buspirone and Lexapro. Clinically she has been doing generally well, and in context of palpitations, anxiety exacerbation to be a common trigger, but this does not appear to be the case with this current pattern. She feels these episodes are not related to stressors, and she has been taking her medicine as prescribed. We will continue unchanged, follow- up as per discussion of palpitations. Assessment & Plan (02/22/2024 9:08 AM EDT): Initially discussed in detail 08/26/2020 with initiation [...] benefit. She was generally doing well but until the end of her in May 2023, where she had a premature infant requiring NICU stay with understandably increased stressors, as such we added Wellbutrin 150 mg XL daily to regimen Lexapro and buspirone. She feels the medicines have benefit her mood and she continues to slowly improve as well as cotreatment ADHD has been beneficial in that regard. Additional initiation of counseling October 2023 ongoing benefit, some increase stressors related to break-up of her relationship in late 2022. No SI/HI. Continue regimen unchanged. If she does well at follow-up visit we could consider weaning. Continue lifestyle modifications to benefit mood. Advise concerns. Assessment & Plan (01/05/2024 12:49 PM EST): Initially discussed in detail 08/26/2020 with initiation [...] benefit. She was generally doing well but until the end of her in May 2023, where she had a premature requiring NICU stay with understandably increased stressors, as such we added Wellbutrin 150 mg XL daily to regimen Lexapro and buspirone. She continues to feel that her current regimen has been quite good in helping her mood, and additional treatment as of initiation June 2023 for ADHD inattention subtype symptoms with methylphenidate have been further beneficial. Additional initiation of counseling October 2023 has been beneficial especially with the break-up of her relationship in late 2022. No SI/HI. She would like to continue regimen unchanged which I think is most beneficial but if she is doing this well in spring we could consider weaning at that time. Continue lifestyle modifications to benefit mood. Advise concerns. Assessment & Plan (11/24/2023 5:36 PM EST): Initially discussed in detail 08/26/2020 with initiation [...] benefit. She was generally doing well but until the end of her in May 2023, where she had a premature infant requiring NICU stay with understandably increased stressors, as such we added Wellbutrin 150 mg XL daily to regimen Lexapro and buspirone. She feels that the current regimen has been quite good in helping her mood, and additional treatment as of initiation June 2023 for ADHD inattention subtype symptoms with methylphenidate have been further beneficial. She has had some recent stressors with break-up of her relationship as of late fall 2022 but is overall handling that reasonably well. She has initiated counseling as of October 2023 with some benefit. No SI/HI. She would like to continue regimen unchanged which I think is most beneficial but if she is doing this well in spring we could consider weaning at that time. Continue lifestyle modifications to benefit mood. Advise concerns. Assessment & Plan (08/25/2023 10:47 AM EDT): Addressed initially and detail 08/26/2020 with initiation of buspirone 7.5 [...] benefit. She was generally doing well but until the end of her in May 2023, where he was premature and required to be in the NICU she had increased stressors, she was having some breakthrough symptoms and as such we added Wellbutrin 150 mg XL daily to regimen Lexapro and buspirone. She feels that the current regimen has been quite good in helping her mood, and additional treatment as of initiation June 2023 for ADHD inattention subtype symptoms with methylphenidate have been further beneficial. I discussed pros and cons of considering titrating down her mood medications at this time she like to continue little longer which I think is reasonable, but if she is doing this well at her follow-up in 3 months time, I think would be reasonable to start weaning her medicine, initially with the bupropion. No SI/HI. Continue lifestyle modifications to benefit mood. Advise concerns, reassess at follow-up, sooner as needed. Assessment & Plan (07/18/2023 12:13 PM EDT): Addressed initially and detail 08/26/2020 with initiation of buspirone 7.5 [...] benefit. She was generally doing well but until the end of her in May 2023, where he was premature and required to be in the NICU she had increased stressors, she was having some breakthrough symptoms and as such we added Wellbutrin 150 mg XL daily to regimen Lexapro and buspirone. She does feel this has been further beneficial, and she would like to continue unchanged for now. Additionally I think that the ADHD inattention subtype symptoms are likely exacerbating mood and we are treating as per that assessment plan. If she is doing notably better at follow-up, we could consider weaning off the Wellbutrin. No SI/HI. Advise concerns, reassess at 1 month follow-up visit. Assessment & Plan (06/06/2023 4:58 PM EDT): Addressed initially and detail 08/26/2020 with initiation of buspirone 7.5 [...] 15 mg twice daily, with benefit. She generally doing well but over the last weeks, coinciding with her first child's , he was in the NICU she had increased stressors, more irritability, breakthrough anxiety and depression and she would be interested in titrating up her regimen. She feels the previous medicines have been helpful and she would like to continue them, as such we will add Wellbutrin 150 mg XL daily, although we could potentially transition off quickly if she did well once her comes home, which I do feel will be notably beneficial. Continue lifestyle modifications to benefit mood including notably scheduling regular exercise, improve communication. No SI/HI. Advise concerns, reassess at 6-week follow-up. Assessment & Plan (04/13/2023 9:22 AM EDT): Addressed initially and detail 08/26/2020 with initiation of buspirone 7.5 mg twice daily and fluoxetine 20 mg daily, as her mother had done well nose medicines prior. She continued a good response medicine that as a fall 2020, resuming again 03/02/2022 with fluoxetine 20 mg daily, buspirone 7.5 mg twice daily. 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 Despite this evening enjoyable to her is been increased stressors she feels she's having some breakthrough stresses. We switched to Lexapro 10 mg daily with increase of buspirone to 15 mg twice daily, with benefit. Since that time she has become , and has continued on these medicines via the agreement of her line person, feeling that the patient ultimately small potential risk of SSRI therapy without weight by her benefit. Doing well on current regimen. Continue unchanged. No SI/HI. Advise concerns. Assessment & Plan (03/21/2023 12:02 PM EDT): Addressed initially and detail 08/26/2020 with initiation of buspirone 7.5 mg twice daily and fluoxetine 20 mg daily, as her mother had done well nose medicines prior. She continued a good response medicine that as a fall 2020, resuming again 03/02/2022 with fluoxetine 20 mg daily, buspirone 7.5 mg twice daily. 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 Despite this evening enjoyable to her is been increased stressors she feels she's having some breakthrough stresses. We switched to Lexapro 10 mg daily with increase of buspirone to 15 mg twice daily, with benefit. Since that time she has become , and has continued on these medicines via the agreement of her line person, feeling that the patient ultimately small potential risk of SSRI therapy without weight by her benefit. Reassess following completion of her where we could consider weaning. Continue lifestyle modifications to benefit. No SI/HI. Advise concerns. Assessment & Plan (08/06/2022 5:56 PM EDT): Addressed in detail 08/26/2020 with initiation of buspirone 7.5 mg twice daily and fluoxetine 20 mg daily, as her mother had done well nose medicines prior. She continued a good response medicine that as a fall 2020, and he resumed again 03/02/2022 with fluoxetine 20 mg daily, buspirone 7.5 mg twice daily. 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 Despite this evening enjoyable to her is been increased stressors she feels she's having some breakthrough stresses. At patient preference we switched to Lexapro 10 mg daily with increase of buspirone to 15 mg twice daily and she has done well. She is only taking the buspirone once daily but as she is doing well continue unchanged. We could consider weaning the medicine when we follow- up in spring 2021. Continue lifestyle modifications to benefit. No SI/HI. Advise concerns. Class 2 obesity due to exces s calories without serious comorbidity with body mass index (BMI) of 37.0 to 37.9 in adult 08/06/2022 Assessment & Plan (11/06/2024 11:26 AM EST): Longstanding pattern of some obesity but this is accentuated by BMI based on her short stature, as she is not quite as overweight as that would imply. Nonetheless although telemedicine visit, today's weight is up modestly down 170 pounds compared to previous 175 pounds on 11/24/2023. With a height of 58 to 59 inches, this still puts her BMI in the 35 range, and as patient has interest in pursuit of contraception with patches, BMI needs to be less than 30. [address] she would like to lose weight and this is better for her health. She is not an appropriate candidate for phentermine therapy as she already takes methylphenidate ER 36 mg for ADHD and he should not use to stimulants at the same time. As such the other medication of benefit would be GLP-1 agonist, not covered by insurance. Continue healthy diet, exercise and pursuit of even modest weight loss. Assessment & Plan (08/17/2024 10:42 AM EDT): Longstanding pattern of some obesity but this is accentuated by BMI based on her short stature, as she is not quite as overweight as that would imply. Nonetheless although telemedicine visit, today's weight is up modestly down 170 pounds compared to previous 175 pounds on 11/24/2023. With a height of 58 to 59 inches, this still puts her BMI in the 35 range, and as patient has interest in pursuit of contraception with patches, BMI needs to be less than 30. Either [address] she would like to lose weight and this is better for her health. She is not an appropriate candidate for phentermine therapy as she already takes methylphenidate ER 36 mg for ADHD and he should not use to stimulants at the same time. As such the other medication of benefit would be GLP-1 agonist I think this can be notably beneficial for her especially in context of her previously noted gestational diabetes during her recent in 2022. Semaglutide attempt was not covered by insurance, could retry in the future if coverage may change. Assessment & Plan (01/05/2024 12:52 PM EST): Longstanding pattern of some obesity but this is accentuated by BMI based on her short stature, as she is not quite as overweight as that would imply. Nonetheless although telemedicine visit, today's weight is up modestly down 170 pounds compared to previous 175 pounds on 11/24/2023. With a height of 58 to 59 inches, this still puts her BMI in the 35 range, and as patient has interest in pursuit of contraception with patches, BMI needs to be less than 30. Either [address] she would like to lose weight and this is better for her health. She is not an appropriate candidate for phentermine therapy as she already takes methylphenidate ER 36 mg for ADHD and he should not use to stimulants at the same time. As such the other medication of benefit would be GLP-1 agonist I think this can be notably beneficial for her especially in context of her previously noted gestational diabetes during her recent in 2022. Initiate semaglutide 0.25 mg weekly, caution stomach upset, nausea, etc. This may require prior authorization, and we will have to see if her insurance will cover. Management per results. Assessment & Plan (04/13/2023 9:24 AM EDT): Historically obesity but more accentuated based on her shorter stature, nonetheless with obviously her weight has increased, we will monitor closely especially post but currently being followed by her line person. Reinforced healthy diet, good activity level is much as tolerated. Seasonal allergic rhinitis due to pollen 022 Assessment & Plan (12/11/2024 6:20 PM EST): Seasonal pattern of allergies responsive to regimen of antihistamine, nasal steroid and montelukast. With recent viral syndrome from a few weeks ago this transition to more allergy type symptoms which lingered and also resulted in more recent pattern of secondary sinusitis, treated as per that assessment plan. For allergies recommend resumption of antihistamine, nasal steroid and singular for the next couple weeks, and as needed. Secondary asthmatic response as per that assessment plan. Advise if not improving. Assessment & Plan (11/06/2024 11:27 AM EST): Seasonal pattern of allergies responsive to regimen of antihistamine, nasal steroid and montelukast. Fall triggers are starting to use back, continue simvastatin. Additional benefit of saline spray, nasal flushing. Advise concerns. Assessment & Plan (08/17/2024 10:45 AM EDT): Seasonal pattern of allergies responsive to regimen of antihistamine, nasal steroid and montelukast. Currently having modest flare, recommend starting back on her regimen. . Additional benefit of saline spray, nasal flushing. Advise concerns. Assessment & Plan (03/01/2024 10:52 AM EDT): Modest flare of allergy to the last couple weeks which she has resumed Claritin and Singulair and Flonase and starting to be better in this regard. Declines need for steroid burst although we could reconsider in the next week or so if necessary. Additional benefit of saline spray, nasal flushing. Advise concerns. Assessment & Plan (02/22/2024 9:12 AM EDT): Modest flare of allergies over the last couple weeks which she has resumed her medications being Claritin and Singulair, she does not tolerate Flonase. Addition benefit of saline spray, nasal flushing. Use for another couple weeks, then as needed. Advise concerns. Assessment & Plan (11/24/2023 5:36 PM EST): Modest breakthrough symptoms as of fall 2022 but she is now doing well on regimen of Claritin and Singulair, she does not tolerate Flonase. Use as needed in future, with additional benefit of saline spray, nasal flushing. Assessment & Plan (08/25/2023 10:48 AM EDT): Modest breakthrough symptoms of fall allergies as of the last few weeks, recommend resumption of Claritin daily and if she does not tolerate Flonase have added Singulair 10 mg chewable tablet daily to regimen use for the next couple weeks, and as needed. Additional benefit of saline spray, nasal flushing. Advise concerns. Reassess at follow-up. Assessment & Plan (07/18/2023 12:14 PM EDT): Seasonal more spring and fall, good response to as needed use of Claritin we could add nasal steroid and/or Singulair in the future. Additional benefit of saline spray, nasal flushing. Advise concerns. Assessment & Plan (04/13/2023 9:24 AM EDT): Seasonal more spring and fall, good response to as needed use of Claritin and Mucinex which is appropriate during . Additional benefit of saline spray, nasal flushing. Advise concerns. Assessment & Plan (01/18/2023 5:33 PM EST): Some ongoing congestion and drainage for the last couple weeks, recommend resumption of Claritin and Mucinex which she typically receives benefit from, and is appropriate for use in as she is currently 16 weeks . Additional benefit of saline spray, nasal flushing. Advise if not improving. Assessment & Plan (08/06/2022 5:53 PM EDT): Good response to as needed use of Flonase, Zyrtec and Singulair. She uses of some regularity but has not been needing them as often recent. Advise any worsening or breakthrough symptoms Intermittent constipation 08/06/2022 Assessment & Plan (04/13/2023 9:23 AM EDT): More historical, currently doing overall well with good dietary pattern. No need for medication. Mild intermittent asthma with acute exacerbation 08/06/2022 Assessment & Plan (12/11/2024 6:19 PM EST): Generally well-controlled mild intermittent pattern historically although over the fall/winter 2023 season she has had a bit more of a persisting pattern requiring her inhaler more regular. As such I would like to add Symbicort 160/4.5 at 1 puff twice daily, although could be used more frequent if necessary. Plan to use that more as needed with viral triggers or seasonal triggers in the future. For current flare initiate prednisone 10 mg tablet 3 tablets daily x 5 days, continue albuterol inhaler 2 puffs every 4-6 hours next few days scheduled, and as needed. Continue treatment of allergies with additional component of exacerbation that regard. Advise if not improving. Assessment & Plan (11/06/2024 11:26 AM EST): Intermittent pattern seasonally, typically flare with viruses or allergies. Despite some recent allergy flare she is doing well from this perspective, continue as needed use of rescue inhaler. Pneumococcal 20 valent vaccine given based on asthmatic history 08/17/2024. No new concerns as of 11/06/2024. Assessment & Plan (08/17/2024 10:43 AM EDT): Intermittent pattern seasonally, typically flare with viruses or allergies. Despite some recent allergy flare she is doing well from this perspective, continue as needed use of rescue inhaler. Pneumococcal 20 valent vaccine given based on asthmatic history 08/17/2024. Assessment & Plan (08/25/2023 10:47 AM EDT): Intermittent pattern seasonally, typically flare with viruses or allergies. Despite some recent allergy flare she is doing well from this perspective, continue as needed use of rescue inhaler. Assessment & Plan (07/18/2023 12:14 PM EDT): Mild intermittent pattern, triggered in part during hospitalization where she had extra fluid overload. Clinically she has done better since and has not required albuterol inhaler use since that time. She has this to use on an as-needed basis. Advise any worsening, caution triggers with viruses or allergies. Assessment & Plan (06/06/2023 4:56 PM EDT): History of mild intermittent asthma, while hospitalized recently at the end of her , she did have some fluid on her lungs as verified by chest x-ray, but this ultimately resolved quickly with some diuresis and delivery. This did result in some need for rescue inhaler while hospitalized for a few days but no further recurrence since that time. Not felt to have represented a true asthma flare, but nonetheless she has albuterol inhaler to use on an as-needed basis. Assessment & Plan (04/13/2023 9:24 AM EDT): History of intermittent pattern, doing well recently with no current flare. She has albuterol to use on an as-needed basis. Caution allergies or viruses as trigger. Advise any worsening. Assessment & Plan (08/06/2022 5:53 PM EDT): Initially thought that this episode of chest tightness today was asthmatic, but this is not and is from costochondritis. Nonetheless she has her rescue inhaler to use on an as-needed basis. Advised concerns Bicornuate uterus Overview (02/14/2023): dx prior to in 2021 Estimated Date of Delivery Comme nts Yes 09/18/2025 Date entered ranjana or to episode creation Resolved Problems Problem Noted Date Diagnosed Date Resolved Date Allergies 08/06/2022 08/06/2022 Overview (08/06/2022): History of mild asthmatic episode secondary to allergies Major depressive disorder, recurrent, mild 08/06/2022 04/13/2023 Assessment & Plan (03/21/2023 12:00 PM EDT): Comorbid with anxiety, less prominent at this time. Please refer to assessment plan for anxiety for further details. Assessment & Plan (08/06/2022 5:55 PM EDT): Nation of anxiety depression, please refer to anxiety for details of assessment and plan. Encounters Date Type Department Care Team Description 06/13/2025 1:00 PM EDT Office Visit [facility] [address] [place] [address] [place] [phone] Mingo Limon MD ADHD, predominantly inattentive type (Primary Dx); Anxiety and depression; Gestational diabetes mellitus (GDM) in second trimester controlled on oral hypoglycemic drug; Mixed hyperlipidemia; Palpitations 06/13/2025 Travel 05/27/2025 Refill [facility] [address] [place] [address] [place] [phone] Mingo Limon MD ADHD, predominantly inattentive type 05/23/2025 10:30 AM EDT Office Visit [facility] [address] [facility] [address] [address] [place] [address] Sarah George MD Bicornuate uterus (Primary Dx) 05/23/2025 10:06 AM EDT - 05/23/2025 11:59 PM EDT Hospital Encounter PSYCHIATRIC US PER DIAG [facility] [address] [place] [id number] Milton Puentes MD 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, antepartum; History of delivery, currently ; Tachycardia; History of gestational diabetes in prior , currently ; , unspecified gestational age; Encounter for repeat ultrasound of pyelectasis, antepartum, not applicable or unspecified fetus Discharge Disposition: Home or Self Care 05/23/2025 Travel 05/16/2025 Telephone [facility] [address] [place] [phone] Sarah Hare APRN 05/13/2025 Results Follow-Up [facility] [address] [place] [phone] Mingo Limon MD 05/10/2025 1:15 PM EDT Office Visit [facility] [address] [place] [address] Mingo Limon MD Acute cystitis without hematuria (Primary Dx); ADHD, predominantly inattentive type; Anxiety and depression 05/10/2025 12:30 PM EDT Office Visit [facility] [address] [place] [phone] Sarah Hare, CHEMICAL MIXER Palpitations (Primary Dx); Tachycardia 05/10/2025 Travel 05/08/2025 Telephone [facility] [address] [place] [phone] Sarah Hare, CHEMICAL MIXER SARAH HARE-APOINTMENT 04/09/2025 Refill [facility] [address] [place] [address] Mingo Lmion MD Anxiety and depression; ADHD, predominantly inattentive type 04/04/2025 Refill [facility] [address] [place] [address] Mingo Limon MD ADHD, predominantly inattentive type 04/04/2025 Refill [facility] [address] [place] [address] [place] [address] Mingo Limon MD ADHD, predominantly inattentive type 03/21/2025 Refill [facility] [address] [place] [address] Mingo Limon MD Med Refill from Last 3 Months Immunizations Immunization Administration Dates Next Due COVID-19 (MODERNA) Monovalen t Original Booster 10/12/2021 COVID-19 (PFIZER) Purple Cap Monovalent 04/01/2021,03/04/2021 DTaP, Unspecified 06/06/2006, 3,2002,08/29,2002 Fluzone >6mos 11/06/2024 Fluzone (or Fluarix & Flulav al for VFC) >6mos 08/18/2023,10/18/2022 HPV Quadrivalent 05/23/2014,01/29/2014, 3 Hep A, 2 Dose 12/13/2017,06/06/2006 Hep B, Adolescent or Pediatric 04/24/2003,2001,2002 HiB 04/24/2003,2002,2002 IPV 06/06/2006, 3,2002,06/25 Influenza TIV (IM) 08/08/2020, 9,08/04/2018,09/10,09/08/2012,09/07/2011 Influenza, Unspecified 10/18/2022,09/25/2021 MCV4 Unspecified 07/24/2013 MMR 06/06/2006,07/24/2003 Meningococcal Conjugate 06/29/2018,12/13/2017 Meningococcal MCV4P (Menactra) 07/24/2013 Pneumococcal Conjugate 20-Va lent (PCV20) 08/17/2024 Pneumococcal Conjugate Unspecified 04/24,01/30/2003,2002,08/29 Pneumococcal, Unspecified 04/24/2003,03/2003,2002,08/29 Tdap 11/06/2024,07/24/2013 Varicella 02/08/2008,04/24/2003 Family History Medical History Relation Name Comments Diabetes Father Kenneth Diabetes type II Father Kenneth Hyperlipidemia Father Kenneth Hypertension Father Kenneth COPD Maternal Grandfather Ary Coronary artery disease Maternal Grandfather Ary Diabetes type II Maternal Grandfather Ary Breast cancer Maternal Grandmother Ary Saenz Hypertension Maternal Grandmother Ary Saenz Uterine cancer Maternal Great-Grandmother Anxiety disorder Mother Depression Mother Diabetes type II Paternal Grandfather Fernando Hypertension Paternal Grandfather Fernando COPD Paternal Grandmother Diabetes type II Paternal Grandmother Breast cancer Paternal Great-Grandmother Relation Name Status Comments Father Kenneth Alive Maternal Grandfather Ary (Age 70) Maternal Grandmother Ary Saenz Alive Maternal Great-Grandmother Mother Alive Paternal Grandfather Fernando AROUND AGE 60 Paternal Grandmother EARLY 6 0s Paternal Great-Grandmother Social History Tobacco Use Types Packs/Day Years [...] Delivery Comme nts Yes 09/18/2025 Date entered arnjana or to episode creation Sex and Gender Information Value Date Recorded Sex Assigned at Female 07/18/2023 11:24 AM EDT Legal Sex Female 11:26 AM EDT Gender Identity Female 07/18/2023 11:24 AM EDT Sexual Orientation Not on file Last Filed Vital Signs Vital Sign Reading Time Taken Comments Blood Pressure 108/68 06/13/2025 12:55 PM EDT Pulse 102 06/13/2025 1:04 PM EDT Temperature 36.6 C (97.8 F) 06/13/2025 12:55 PM EDT Respiratory Rate 20 05/10/2025 1:13 PM EDT Oxygen Saturation 98% 06/13/2025 12:55 PM EDT Inhaled Oxygen Concentration - - Weight 86.7 kg (191 lb 3.2 oz) 06/13/2025 12:55 PM EDT Height 147.3 cm (4' 9.99 ) 06/13/2025 12:55 PM E DT Body Mass Index 39.97 06/13/2025 12:55 PM EDT Plan of Treatment Upcoming Encounters Date Type Department Care Team (Late st Contact Info) Description 08/01/2025 10:45 AM EDT Office Visit [facility] [address] [place] [address] 08/01/2025 10:45 AM EDT Appointment PSYCHIATRIC US PER [facility] [address] [place] [address] 08/09/2025 10:00 AM EDT Office Visit [facility] [address] [place] [phone] SeSarah he W, CHEMICAL MIXER [address] [place] [address] [place] [address] 08/19/2025 8:45 AM EDT Office Visit [facility] [address] [place] [phone] Mingo Limon MD [address] [place] [address] Health Maintenance Due Date Last Done Comments MENINGOCOCCAL B VACCINE (1 o f 2 - Standard) 2018 HEPATITIS C SCREENING 07/30/2022 COVID-19 Vaccine ( - 2023-2 5 season) 2024 10/12/2021, 04/01/2021, 03/04/2021 LIPID PANEL 05/21/2025 05/21/2024 RSV Vaccine - Adults (1 - Ri sk 1-dose series) 07/29/2025 ANNUAL PHYSICAL 08/17/2025 08/17/2024 CHLAMYDIA SCREENING 08/27/2025 08/27/2024, Annual Gynecologic Pelvic an d Breast Exam 08/28/2025 08/27/2024 INFLUENZA VACCINE 08/28/2025 11/06/2024, , 10/18/2022, Additional history exists PAP SMEAR 08/27/2027 08/27/2024, 08/25/2023 TDAP/TD VACCINES (3 - Td or Tdap) 11/06/2034 024, 07/24/2013 HPV VACCINES Completed 05/23/2014, 03/0 02/2014, 07/24/2013 Pneumococcal Vaccine 0-49 Completed 2023, 04/24/2003, 04/24/2003, Additional history exists Procedures Procedure Name Priority Date/Time Associated Diagnosis Comments SCANNED - LABS 06/10/2025 [facility] Routine 05/23/2025 11:41 AM EDT 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, antepartum History of delivery, currently Tachycardia History of gestational diabetes in prior , currently , unspecified gestational age Encounter for repeat ultrasound of pyelectasis, antepartum, not applicable or unspecified fetus URINE CULTURE Routine 05/10/2025 1:49 PM EDT Acute cystitis without hematuria POCT URINALYSIS DIPSTICK, MANUAL Routine 05/10/2025 1:38 PM EDT Acute cystitis without hematuria SCANNED - IMAGING 05/01/2025 LIQUID-BASED PAP SMEAR WITH HPV GENOTYPING IF ASCUS, [facility] (GEENA,[facility]) Routine 08/27/2024 9:58 AM EDT Women's annual routine gynecological examination LIPID PANEL Routine 05/21/2024 12:34 PM EDT Encounter for general adult medical examination with abnormal findings from Last 3 Months or Most Recently Relevant to Health Maintenance Results * LABS SCANNED (06/10/2025) us Mingo Limon MD LAB BLOOD ORDERABLES Final Resul t * [facility] (05/23/2025 11:41 AM EDT) Anatomical Region Laterality Modality Ultrasound 05/23/2025 10:5 2 AM EDT Narrative 05/23/2025 11:50 AM EDT PAT NAME: KARMEN BRAVO MED REC#: [id number] DA: 2000 PAT GEND: F PAT TYPE: O EXAM RO: [id number] REF PHYS [facility] Comparison Studies There [...] EFW (oz) 5 oz EFW by: Hadlock ([id number]) Extended Tibia 34.7 mm 23w 0d 40% Yocasta Fibula 33.3 mm 22w 1d 32% Yocasta Radius 33.5 mm 23w 5d 56% Yocasta Ulna 36.5 mm 24w 3d 69% Yocasta Cav. septi pel. tr 4.4 mm Coal Or Ore Controller 3.4 mm CM 7.8 mm 94% Nicolaides [...] normal IVC: normal 3-vessel view: Appears normal 4-yqfadh-yssajmp view: Appears normal Rt lung: Appears normal [...] weeks GA for growth Coding ======= Description: 20206-22 Detailed Zinc Miner Blasting: Jennifer Ruby RDMS Physician: Sarah George MD, FACOG Electronically signed by: Sarah George MD, FACOG at: 11:50 Procedure Note Sarah George MD - 05/23/2025 PAT NAME: KARMEN BRAVO MED REC#: [id number] DA: 2000 PAT GEND: F PAT TYPE: O EXAM RO: [id number] REF PHYS [facility] Comparison Studies There are no relevant prior studies to which this study is beingcompared Patient Status Outpatient Indication ======== Concern for bilateral UTD. Bicornuate uterus. Previous PROM/PTD @32 wks Maternal Assessment Qahcyb106 cm Height (ft)4 ft Height (in)9 in Kivjqa25 kg Weight (lb)193 lb BMI41.07 kg/m Method ======= Transabdominal ultrasound examination. View: Limited by patient bodyhabitus ========= Rasmussen . Number of fetuses: 1 Dating ====== Method of dating:based on stated CHANTE GA by prior [id number] w + 1 d CHANTE by prior assessment:09/18/2025 Ultrasound examination on:05/23/2025 GA by U/S based upon:AC, BPD, Femur, HC GA by U/S23 w + 0 d CHANTE by U/S:09/19/2025 Assigned:based on stated CHANTE, selected on 05/23/2025 Assigned GA23 w + 1 d Assigned CHANTE:09/18/2025 [id number] d Biometry Standard BPD53.0 mm 22w 1d 12% Hadlock OFD77.9 mm 25w 3d 98% Yocasta HC212.4 mm 23w 2d 41% Hadlock Cerebellum tr25.7 mm 23w 1d 82% Hill AC197.3 mm 24w 3d 80% Hadlock Femur38.4 mm 22w 2d 15% Hadlock Sacoeks85.0 mm 24w 2d 76% Yocasta HC / AC1.08 IBF208 g 23w 2d 54% Hadlock EFW (lb)1 lb EFW (oz)5 oz EFW by:Hadlock ([id number]-FL) Extended Tibia34.7 mm 23w 0d 40% Yocasta Rsseqi36.3 mm 22w 1d 32% Yocasta Jerqep13.5 mm 23w 5d 56% Yocasta Ulna36.5 mm 24w 3d 69% Yocasta Cav. septi pel. tr4.4 mm Vp3.4 mm CM7.8 mm 94% Nicolaides Nasal bone8.8 mm Rt Renal pelvis ap4.3 mm Lt Renal pelvis ap3.2 mm Head / Face / Neck Cephalic index0.68 <1% Nicolaides Extremities / Bony Struc FL / BPD0.72 FL / HC0.18 FL / AC0.19 Other Structures TBW076 bpm General Evaluation Cardiac activity present. FHR [...] view:Appears normal SVC:normal IVC:normal 3-vessel view:Appears normal 9-jfqrfz-qigpwkm view:Appears normal Rt lung:Appears normal Lt lung:normal [...] of uterine malformations:bicornuate uterus Cervix:Visualized Approach:Transabdominal Cervical uoqihc55.0 mm Ovaries / Tubes / Adnexa Rt ovary:Visualized Lt ovary:Visualized Impression Today's exam reveals a SIUP with biometry consistent with dates. Mildunilateral renal pelvic dilation. Otherwise anatomic survey appearsnormal. Fluid is normal. The placenta is anterior, high. The TA cervical length appears adequate Recommendation Follow up 32 weeks GA for growth Coding ======= Description:[id number] Detailed Zinc Miner Blasting: Jennifer Ruby RDSD Physician: Sarah George MD, FACOG Electronically signed by: Sarah George MD, FACOG at: 2611:50 us Milton Puentes MD IM US ORDERABLES Final Resul t * Urine Culture - Urine, Urine, Clean Catch (05/10/2025 1:49 PM EDT) Urine Culture Final report [facility] Result 1 Comment [facility] Comment: Mixed urogenital biju 10,000-25,000 colony forming units per mL Urine Urine specimen obtained by clean catch procedure / Unknown 05/10/2025 1:49 PM EDT 05/10/2025 Comment:Urine Release to [facility] Narrative [facility] - 05/12/2025 6:37 AM EDT Performed at: [address] [id number] Oil Field Technician: Dagoberto Campbell PhD, Phone: [phone] us Mingo Limon MD MICROBIOLOGY - GENERAL ORDERABLE S Final Result [facility] [address] [place] [address], [facility] [address] [id number], * (ABNORMAL) POC Urinalysis Dipstick (05/10/2025 1:38 PM EDT) Color Dark Yellow Yellow, Straw, Dark Yellow, Char [facility] Clarity, UA Cloudy(A) Clear [facility] Glucose, UA Negative Negative mg/dL [facility] Bilirubin Negative Negative [facility] Ketones, UA Negative Negative [facility] Specific [place] 1.010 1.005 - 1.030 [facility] Blood, UA Negative Negative [facility] pH, Urine 8.0 5.0 - 8.0 [facility] Protein, POC Negative Negative mg/dL [facility] Urobilinogen, UA Normal Normal, 0.2 E.U./dL [facility] Leukocytes Large (3+)(A) Negative [facility] Nitrite, UA Negative Negative [facility] Urine 05/10/2025 1:38 PM EDT us Mingo Limon MD POINT OF CARE TEST ORDERABLES Fi nal Result [facility]
[address] [place] [address], * IMAGING SCANNED (05/01/2025) Anatomical Region Laterality Modality Radiographic Aurelia ging us Mingo Limon MD IMG DIAGNOSTIC IMAGING ORDERABLE S Final Result * LIQUID-BASED PAP SMEAR WITH HPV GENOTYPING IF ASCUS ([facility]) (08/27/2024 9:58 AM EDT) Reference Lab Report [facility] [address] [place] [address] or [phone] Masood Herron M.D., Circle Beveler PATIENT NAME LABORATORY NO. 651 KARMEN BRAVO [id number] AGE SEX SSN CLIENT REF # [facility] 22 2000 F [id number] Anuradha RENDON REQUESTING Joe [place] [address] CONTRERAS, CECILIA DATE COLLECTED DATE RECEIVED DATE REPORTED 08/27/2024 08/27/2024 09/04/2024 ThinPrep Pap with Cytyc Imaging DIAGNOSIS: Negative for intraepithelial lesion or malignancy Multiple factors can influence accuracy of Pap tests; therefore, screening at regular intervals is necessary for early cancer detection. SPECIMEN ADEQUACY: SATISFACTORY FOR EVALUATION Transformation zone is present. Partially obscuring blood and inflammation are present. SOURCE OF SPECIMEN: CERVICAL/ENDOCERV ICAL SLIDES: 1 CLINICAL HISTORY: Women's annual routine gynecological examination Chlamydia / Gonorrhea CHLAMYDIA TRACHOMATIS: Negative NEISSERIA GONORRHOEAE: Negative The Aptima Combo 2 assay is a target amplification nucleic acid probe test that utilizes target capture for the in vitro qualitative detection and differentiation of ribosomal RNA from Chlamydia trachomatis and Neisseria gonorrhoeae to aid in the diagnosis of chlamydial and gonococcal disease using the [employer] system. SUPERINTENDENT NONSELLING: JOSHUA OSORIO (ASCP) CPT CODES: 30368, [id number], [id number] 09/04/2024 10:12 AM EDT [facility] ThinPrep Vial Cervix uteri structure / Unknown Collection / Unknown 08/27/2024 9:58 AM EDT 08/27/2024 9:58 AM EDT Cecilia Contreras CHEMICAL MIXER PATHOLOGY/CYTOLOGY ORDERA BLES Final Result [facility]
[address] [place] [address], * (ABNORMAL) Lipid Panel (05/21/2024 12:34 PM EDT) Total Cholesterol 147 100 - 199 mg/dL [facility] Triglycerides 230(H) 0 - 149 mg/dL [facility] HDL Cholesterol 42 >39 mg/dL [facility] VLDL Cholesterol Krishna 37 5 - 40 mg/dL [facility] LDL Chol Calc (NIH) 68 0 - 99 mg/dL [facility] Blood Structure of left upper limb / Unknown 05/21/2024 12:34 PM EDT 05/21/2024 Comment:Blood Manual Differe n Narrative [facility] (AMBULATORY) - 05/22/2024 8:10 AM EDT Performed at: 01 - [facility] [address] [place], [place] [id number] Oil Field Technician: Dagoberto Campbell PhD, Phone: [phone] us Mingo Limon MD LAB BLOOD ORDERABLES Final Resul t [facility] (AMBULATORY) [address] [place] [address], [facility] [address] [place] [address], [place] [phone] from Last 3 Months or Most Recently Relevant to Health Maintenance Insurance [facility] PL[facility] Care Teams Booster Pump Operator Relationship Specialty Start Date End Date Mingo Limon MD [address] [place] [address] [place] [id number] PCP - General Internal Medicine 07/30/22
[2025-06-16 16:08] VITALS: BMI 38.8
--- NOTE | 2025-06-16 16:22 | US_ITS ---
PROCEDURE INFORMATION: Exam: US , Transvaginal Exam date and time: 06/16/2025 4:51 PM Age: 25 years old Clinical indication: Lmp or gestational age (in weeks): 26w5d; Other: Vaginal bleeding -- HX of pre term labor; LABS AND CLINICAL REPORTS: Gestational age (Established): 26 w 5 d Estimated due date (Established): 09/17/2025 TECHNIQUE: Imaging protocol: Real-time transvaginal obstetrical ultrasound of the maternal pelvis with image documentation. Transvaginal imaging was used for better evaluation of the fetus, adnexa, and/or cervix. COMPARISON: US OB >= 14 WEEKS FETUS 06/16/2025 4:40 PM FINDINGS: Gestation: Intrauterine which is cephalic in presentation. Fetus was not assessed. MATERNAL: Cervix: Limited endovaginal ultrasound performed to assess cervix length. Cervix measures 4.1 cm and appears normal with no evidence of funneling. IMPRESSION: Normal cervix length.
--- NOTE | 2025-06-16 16:31 | US_ITS ---
PROCEDURE INFORMATION: Exam: US After First Trimester, Transabdominal Exam date and time: 06/16/2025 4:40 PM Age: 25 years old Clinical indication: Lmp or gestational age (in weeks): 26w5d; Other: Vaginal bleeding -- HX of pre term labor; ; Additional info: Previous delivery LABS AND CLINICAL REPORTS: Gestational age (Established): 26 w 5 d Estimated due date (Established): 09/17/2025 TECHNIQUE: Imaging protocol: Real-time transabdominal obstetrical ultrasound of the maternal pelvis and a second or third trimester with image documentation. COMPARISON: US OB /MATERNAL DETAIL 05/01/2025 12:53 PM FINDINGS: Gestation: Rasmussen living intrauterine gestation. heart rate: 143 bpm presentation and position: Cephalic. Placenta: Unremarkable. No subchorionic bleed. Placenta is anterior. Amniotic fluid (Qualitative): Amniotic fluid is subjectively normal for gestational age. MATERNAL: Uterus: Unremarkable. Cervix: Cervical length measures 3.99 cm. Right ovary/adnexa: Obscured by lack of adequate acoustic window. Left ovary/adnexa: Obscured by lack of adequate acoustic window. Right kidney and ureter: Mild hydronephrosis. Intraperitoneal space: No intraperitoneal free fluid. IMPRESSION: 1. Unremarkable rasmussen living intrauterine gestational on limited ultrasound. 2. Mild right maternal hydronephrosis likely reflecting mass effect from gravid uterus.
[2025-06-16] MEDS: LACTATED RINGERS 1000ML 1,000 ML 999 ML IV (16:36)
[2025-06-16] MEDS: BETAMETHASONE ACET/PHOS 6MG/ML 5ML MDV 12 MG IM (16:37)
[2025-06-16 16:50] LABS: Microscopic, Urine URINE MICROSCOPIC (MICROSCOPIC)
[2025-06-16 16:51] LABS: Bilirubin,Urine Negative (Negative); Color,Urine YELLOW (Yellow); Glucose,Urine (UA) Negative (Negative); Ketones,Urine Negative (Negative); Leukocyte Esterase,Urine 2+ (Negative); PH,Urine 7.0 (5.0-8.5); Protein,Urine Negative (Negative); Specific Gravity, Urine 1.015 (1.005-1.030); Urobilinogen,Urine 0.2 EU/dl (0.2)
[2025-06-16 17:17] LABS: Bacteria,Urine 4+ /lpf; RBC,Urine TNTC #/hpf (0-3); Squamous Epithelial Cell,Urine 50-100 #/hpf (0-5); WBC,Urine 50-100 #/hpf (0-3)
--- NOTE | 2025-06-16 17:39 | EXP.ACUTE.PN ---
Subjective *Date: 06/16/25 *Time: 17:39 Interval history: She complains of having some spotting this morning when she woke up. She came into labor and delivery. She is not chau. Nonstress test is reactive. No blood on the glove when we examined her. She has a history of bicornuate uterus and labor. She delivered her last baby at 32 weeks. Medical Exam Vital signs and Labs for Last 24 Hours: Intake and Output 06/16/25 06/16/25 06/16/25 03:59 11:59 19:59 Other: Weight 192 lb 6 oz Patient Weight 06/17/25 11:59 Weight 192 lb 6 oz Laboratory Results - last 24 hr 06/16/25 15:44: Urine Color Yellow, Urine Appearance Sl cloudy, Urine pH 7.0, Ur Specific [place] 1.015, Urine Protein Negative, Urine Glucose (UA) Negative, Urine Ketones Negative, Urine Blood 3+ A, Urine Nitrate Negative, Urine Bilirubin Negative, Urine Urobilinogen 0.2, Ur Leukocyte Esterase 2+ A, Urine RBC Tntc, Urine WBC 50-100, Ur Squamous Epith Cells 50-100, Urine Bacteria 4+ I & O for Labs for Last 24 Hours: Intake & Output 06/14/25 06/15/25 06/16/25 06/17/25 11:59 11:59 11:59 11:59 Weight 192 lb 6 oz Head: Present atraumatic ENT: Present normal exam Neck: Present normal inspection Respiratory: Present normal respiratory effort; Absent accessory muscle use Assessment and Plan *Assessment and plan (1) Chronic hypertension affecting : Status: Acute Category: Medical Code(s): O10.919 - Unspecified pre-existing hypertension complicating , unspecified trimester (2) 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, antepartum: Status: Acute Category: Medical Code(s): O34.02 - Maternal care for unspecified congenital malformation of uterus, second trimester; Q51.3 - Bicornate uterus (3) History of pre-term labor: Status: Acute Category: Medical Code(s): Z87.51 - Personal history of pre-term labor (4) Vaginal spotting: Status: Acute Category: Medical Code(s): N93.9 - Abnormal uterine and vaginal bleeding, unspecified Plan Her nonstress test is reactive. Her examination did not reveal any vaginal bleeding. Ultrasound shows fetus in cephalic presentation with an anterior placenta. The fluid was a within normal limits. Transvaginally the cervix measures 4.1 cm in length. No funneling, no shortening of the cervix. She she received 1 dose of steroids given her previous history of bicornuate uterus and delivery at 32 weeks. She will return tomorrow for second dose of steroids. She will follow-up with me in a week as planned.
== END 2025-06-16 17:32 | disposition home or self-care (01) ==
LOC: OBOUT 15:39 → OB 15:48
PROVIDERS: PCP Pediatrics; Visit Provider Nurse Practitioner Obstetrics & Gynecology
DX: O99.891 Other specified diseases and conditions complicating pregnancy (principal); O09.292 Supervision of pregnancy with other poor reproductive or obstetric history, second trimester; O46.92 Antepartum hemorrhage, unspecified, second trimester; N13.30 Unspecified hydronephrosis; Z3A.26 26 weeks gestation of pregnancy
CPT/HCPCS: 59025; 76805; 76817; 81001; 87086; 96360; 96372; 99212; G0463; J0702; J7120

== ENCOUNTER 2025-06-17 16:28 | Outpatient (CLI) | payer OTHER, SELFPAY ==
--- OUTSIDE RECORDS SUMMARY | 2025-05-10 12:30 | XMS_ITS | Encounter Summary ---
Author Organization [facility] Address [address] [place] [address] Care Team Providers Care Oakes Machine Operator Name Role Phone Mingo Limon MD Primary Care Provider [phone] Reason for Visit * Reason Comments Follow-up Medication follow up Encounter Details Date Type Department Care Team (Late st Contact Info) Description 05/10/2025 12:30 PM EDT Office Visit [facility] C[facility]IOLOG[facility] [address] [phone] SeFranchesca he, TELECOMMUNICATIONS OFFICER [address] [place] [address] Palpitations (Primary Dx); Tachycardia Social History Tobacco [...] need to switch to labetalol per her DESIGN TECHNOLOGY PROFESSOR Dr. Kimbrough at [facility]. Patient has been instructed to start [...] states she will be seeing OB at [facility] for high risk . She states [...] will be following with High risk at [facility] and her regular OBGYN she will [...] need to switch to labetalol per her DESIGN TECHNOLOGY PROFESSOR Dr. Kimbrough at [facility]. Patient has been instructed to start [...] Care Team (Late st Contact Info) Description 06/27/2025 11:15 AM EDT Office Visit [facility] MATERNAL MEDICINE [address] [place] [address] 06/27/2025 11:15 AM EDT Appointment [facility] [address] [place] [address] 08/09/2025 10:00 AM EDT Office Visit [facility] CARDIOLOGY [address] [place] [address] Franchesca Sullivan APRN [address] [place] [address] 08/19/2025 8:45 AM EDT Office Visit [facility] PRIMARY CARE [address] [place] [address] Mingo Limon MD [address] [place] [address] documented as of this encounter Visit Diagnoses Diagnosis Palpitations- Primary Tachycardia Unspecified tachycardia documented in this encounter Care Teams Oakes Machine Operator Relationship Specialty Start Date End Date Mingo Limon MD [address] [place] [address] [address] PCP - General Internal Medicine 07/30/22 documented as of this encounter
--- OUTSIDE RECORDS SUMMARY | 2025-05-10 13:15 | XMS_ITS | Encounter Summary ---
Author Organization [facility] Address [address] [place] [address] Care Team Providers Care Eating Disorder Specialist Name Role Phone Mingo Limon MD Primary Care Provider [phone] Reason for Visit * Reason Comments Urinary Tract Infection Encounter Details Date Type Department Care Team (Late st Contact Info) Description 05/10/2025 1:15 PM EDT Office Visit [facility] PRIMARY CARE [address] [place] [address] Mingo Limon MD [address] [place] [address] [place] [id number] Acute cystitis without hematuria (Primary Dx); ADHD, [...] documented in this encounter Progress Notes * Mingo Limon MD - 05/10/2025 2:10 PM EDTAssociated [...] diagnosis by review of her history, with [employer] forms showing the same. No comorbid sleep [...] with stability prefer to continue as per fiber optics supervisor. Of note we had transiently held ADHD [...] good stabilityand with her previous stability the fiber optics supervisor prefers her to stay on her regimen [...] Negative Negative Ketones, UA Negative Negative Specific [place] 1.010 1.005 - 1.030 Blood, UA Negative [...] diagnosis by review of her history, with [employer] forms showing the same. No comorbid sleep [...] with stability prefer to continue as per fiber optics supervisor. Of note we had transiently held ADHD [...] Description 06/27/2025 11:15 AM EDT Office Visit [facility] [address] [facility] [address] [place] [address] 06/27/2025 11:15 AM EDT Appointment [facility] [address] [place] [address] 08/09/2025 10:00 AM EDT Office Visit [facility] CARDIOLOGY [address] [place] [address] Franchesca Sullivan, LAMINATING MACHINE TENDER [address] [place] [address] [place] [address] 08/19/2025 8:45 AM EDT Office Visit [facility] PRIMARY [facility]ARE [address] [place] [phone] Mingo Limon MD [address] [place] [address] [place] [address] documented as of this encounter Procedures Procedure [...] 1:49 PM EDT 05/10/2025 Comment:[facility] to [facility] N[facility]ative [facility] - 05/12/2025 6:37 AM EDT Performed at: 01 - Lab[address] [id number] Scroll Shear Operator: Dagoberto Campbell PhD, Phone: [phone] us Mingo Limon MD MICROBIOLOGY - GENERAL ORDERABLE S Final Result Performing Organization Address City/[facility]/ZIP Co de Phone Number [facility] (AMBULATORY) [address] [place] [address], [place] [phone] [facility] [address] [place] [address], [place] [phone] * (ABNORMAL) POC Urinalysis Dipstick (05/10/2025 1:38 PM EDT) Color Dark Yellow Yellow, Straw, Dark Yellow, Char [facility] Clarity, UA Cloudy(A) Clear [facility] Glucose, UA Negative Negative mg/dL [facility] Bilirubin Negative Negative [facility] Ketones, UA Negative Negative [facility] Specific [place] 1.010 1.005 - 1.030 [facility] Blood, UA Negative Negative [facility] pH, Urine 8.0 5.0 - 8.0 [facility] Protein, POC Negative Negative mg/dL [facility] Urobilinogen, UA Normal Normal, 0.2 E.U./dL [facility] Leukocytes Large (3+)(A) Negative [facility] Nitrite, UA Negative Negative [facility] Urine 05/10/2025 1:38 PM EDT us Mingo Limon MD POINT OF CARE TEST ORDERABLES Fi nal Result [facility]
[address] [place] [address], documented in this encounter Visit Diagnoses Diagnosis Acute cystitis without hematuria- Primary ADHD, predominantly inattentive type Attention deficit disorder without mention of hyperactivity Anxiety and depression documented in this encounter Care Teams Eating Disorder Specialist Relationship Specialty Start Date End Date Mingo Limon MD [address] [place] [address] [place] [address] PCP - General Internal Medicine 07/30/22 documented as of this encounter
--- OUTSIDE RECORDS SUMMARY | 2025-05-23 10:06 | XMS_ITS | Encounter Summary ---
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, antepartum History of delivery, currently Tachycardia History of gestational diabetes in prior , currently , unspecified gestational age Encounter for repeat ultrasound of pyelectasis, antepartum, not applicable or unspecified fetus Procedures [facility] Milton Puentes MD [facility] [address] [address] Phone: tel: fax: [facility] US PER DIAG CTR [address] [place] [address] Phone: tel: Referral ID Status Reason Start Date Expiration Date Visits Re quested Visits Authorized [id number] Closed 05/02/2025 08/01/2026 1 1 Reason for [...] not applicable or unspecified fetus Procedures US [facility] Milton Puentes MD [address] [place] [address] [address] Phone: tel: fax: [facility] US PER DIAG CTR [address] [place] [address] Phone: tel: Referral ID Status Reason Start Date Expiration Date Visits Re quested Visits Authorized [id number] Closed 05/02/2025 08/01/2026 1 1 Encounter Details Date Type Department Care Team (Latest Contact Info) Description 05/23/2025 10:06 AM EDT - 05/23/2025 11:59 PM EDT Hospital Encounter [facility] US PER DIAG CTR [address] [place] [phone] Milton Puentes MD [address] [place] [address] 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, antepartum; [...] Description 06/27/2025 11:15 AM EDT Office Visit [facility] MATERNAL MEDICINE [address] [place] [address] 06/27/2025 11:15 AM EDT Appointment [facility] US PER DIAG CTR [address] [place] [address] 08/09/2025 10:00 AM EDT Office Visit [facility] CARDIOLOGY [address] [place] [address] Franchesca Sullivan, NIRAV [address] [place] [address] 08/19/2025 8:45 AM EDT Office Visit [facility] PRIMARY CARE [address] [place] [address] Mingo Limon MD [address] [place] [address] [place] [address] documented as of this encounter Procedures Procedure Name Priority Date/Time Associated Diagnosis Comments US 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, antepartum History of delivery, currently Tachycardia History of gestational diabetes in prior , currently , unspecified gestational age Encounter for repeat ultrasound of pyelectasis, antepartum, not applicable or unspecified fetus documented in this encounter Results * [facility] (05/23/2025 11:41 AM EDT) Anatomical Region Laterality Modality Ultrasound 05/23/2025 10:5 2 AM EDT Narrative 05/23/2025 11:50 AM EDT PAT NAME: KARMEN GU MED REC#: [id number] DA: 2000 PAT GEND: F PAT TYPE: O EXAM RO: [id number] REF PHYS MILTON PUENTES Comparison Studies There [...] EFW (oz) 5 oz EFW by: Hadlock (KOG-CN-TM-FL) Extended Tibia 34.7 mm 23w 0d 40% Yocasta Fibula 33.3 mm 22w 1d 32% Yocasta Radius 33.5 mm 23w 5d 56% Yocasta Ulna 36.5 mm 24w 3d 69% Yocasta Cav. septi pel. tr 4.4 mm Lens Grinder Apprentice 3.4 mm CM 7.8 mm 94% Nicolaides [...] normal IVC: normal 3-vessel view: Appears normal 5-ijhjdw-yipldkr view: Appears normal Rt lung: Appears normal [...] weeks GA for growth Coding ======= Description: 61266-79 Detailed Auto Hauler: Jennifer Ruby RDMS Physician: Sarah George MD, FACOG Electronically signed by: Sarah George MD, FACOG at: 11:50 Procedure Note Sarah George MD - 05/23/2025 PAT NAME: KARMEN GU MED REC#: [id number] DA: 2000 PAT GEND: F PAT TYPE: O EXAM RO: [id number] REF PHYS MILTON PUENTES Comparison Studies There are no relevant prior studies to which this study is beingcompared Patient Status Outpatient Indication ======== Concern for bilateral UTD. Bicornuate uterus. Previous PROM/PTD @32 wks Maternal Assessment Ijqvbq162 cm Height (ft)4 ft Height (in)9 in Ddmnpi38 kg Weight (lb)193 lb BMI41.07 kg/m Method ======= Transabdominal ultrasound examination. View: Limited by patient bodyhabitus ========= Rasmussen . Number of fetuses: 1 Dating ====== Method of dating:based on stated CHANTE GA by prior [id number] w + 1 d CHANTE by prior assessment:09/18/2025 Ultrasound examination on:05/23/2025 GA by U/S based upon:AC, BPD, Femur, HC GA by U/S23 w + 0 d CHANTE by U/S:09/19/2025 Assigned:based on stated CHANTE, selected on 05/23/2025 Assigned GA23 w + 1 d Assigned CHANTE:09/18/2025 fiswwy850 d Biometry Standard BPD53.0 mm 22w 1d 12% Hadlock OFD77.9 mm 25w 3d 98% Yocasta HC212.4 mm 23w 2d 41% Hadlock Cerebellum tr25.7 mm 23w 1d 82% Hill AC197.3 mm 24w 3d 80% Hadlock Femur38.4 mm 22w 2d 15% Hadlock Fhllvnu59.0 mm 24w 2d 76% Yocasta HC / AC1.08 SXQ671 g 23w 2d 54% Hadlock EFW (lb)1 lb EFW (oz)5 oz EFW by:Hadlock (TIR-AZ-DX-FL) Extended Tibia34.7 mm 23w 0d 40% Yocasta Gupclq43.3 mm 22w 1d 32% Yocasta Dekmuu89.5 mm 23w 5d 56% Yocasta Ulna36.5 mm 24w 3d 69% Yocasta Cav. septi pel. tr4.4 mm Vp3.4 mm CM7.8 mm 94% Nicolaides Nasal bone8.8 mm Rt Renal pelvis ap4.3 mm Lt Renal pelvis ap3.2 mm Head / Face / Neck Cephalic index0.68 <1% Nicolaides Extremities / Bony Struc FL / BPD0.72 FL / HC0.18 FL / AC0.19 Other Structures JTY473 bpm General Evaluation Cardiac activity present. FHR [...] view:Appears normal SVC:normal IVC:normal 3-vessel view:Appears normal 7-dwammc-dwijcob view:Appears normal Rt lung:Appears normal Lt lung:normal [...] of uterine malformations:bicornuate uterus Cervix:Visualized Approach:Transabdominal Cervical xskjax74.0 mm Ovaries / Tubes / Adnexa Rt ovary:Visualized Lt ovary:Visualized Impression Today's exam reveals a SIUP with biometry consistent with dates. Mildunilateral renal pelvic dilation. Otherwise anatomic survey appearsnormal. Fluid is normal. The placenta is anterior, high. The TA cervical length appears adequate Recommendation Follow up 32 weeks GA for growth Coding ======= Description:05641-16 Detailed Auto Hauler: Jennifer Ruby RDMS Physician: Sarah George MD, FACOG Electronically signed by: Sarah George MD, FACOG at: 1:50 us Milton Puentes MD [facility] US ORDERABLES Final Resul t documented in [...] fetus documented in this encounter Care Teams Mill Beam Fitter Relationship Specialty Start Date End Date Mingo Limon MD [address] [place] [address] [place] [address] PCP - General Internal Medicine 07/30/22 documented as of this encounter
--- OUTSIDE RECORDS SUMMARY | 2025-05-23 10:30 | XMS_ITS | Encounter Summary ---
Author Organization [facility] Address [address] [place] [address] Care Team Providers Care Tub Tender Name Role Phone Mingo Limon MD Primary Care Provider [phone] Reason for Referral * Diagnostic Imaging (Routine) - Authorized Specialty Diagnoses / Procedures Referred By Contac t Referred To Contact Radiology Diagnoses Bicornuate uterus Procedures [facility] Sarah George MD [address] [facility] [address] [place] [address] Phone: tel: fax: [facility] US PER DIAG CTR [address] [place] [address] Phone: tel: Referral ID Status Reason Start Date Expiration Date V isits Requested Visits Authorized [id number] Authorized 05/23/2025 08/22/2026 1 1 Reason for Visit * Reason Comments bicornuate uterus; hx PTD (31 wk); hx GD M; mat. tachycardia Encounter Details Date Type Department Care Team (Late st Contact Info) Description 05/23/2025 10:30 AM EDT Office Visit [facility] MATERNAL MEDICINE [address] [facility] [address] [place] [address] Sarah George MD [address] [facility] [address] [place] [address] Bicornuate uterus (Primary Dx) Social History Tobacco [...] Patient reports next follow-up appointment with Dr. Ponce's office is 05/30. * Sarah George MD - 05/23/2025 10:30 AM EDT Patient seen in Diagnostic Center today for ultrasound. Please see ultrasound report under imaging tab of patient chart in [facility] (Viewpoint report). Sarah George MD documented in this encounter Plan of Treatment Upcoming Encounters Date Type Department Care Team (Late st Contact Info) Description 06/27/2025 11:15 AM EDT Office Visit [facility] MATERNAL MEDICINE [address] [facility] [address] [place] [address] 06/27/2025 11:15 AM EDT Appointment [facility] US PER DIAG CTR [address] [place] [address] 08/09/2025 10:00 AM EDT Office Visit [facility] CARDIOLOGY [address] [address] SeFranchesca he, FLOOR SUPERVISOR [address] [place] [address] [place] [address] 08/19/2025 8:45 AM EDT Office Visit [facility] PRIMARY CARE [address] [place] [address] Mingo Limon MD [address] [place] [address] [place] [address] Scheduled Orders Name Type Priority Associated Diagnoses Orde r Schedule [facility] Imaging Routine Bicornuate uterus Expected: 07/18/2025, Expires: 05/23/2026 documented as of this encounter Visit Diagnoses Diagnosis Bicornuate uterus- Primary documented in this encounter Care Teams Tub Tender Relationship Specialty Start Date End Date Mingo Limon MD [address] [place] [address] PCP - General Internal Medicine 07/30/22 documented as of this encounter
--- OUTSIDE RECORDS SUMMARY | 2025-06-13 13:00 | XMS_ITS | Encounter Summary ---
Author Organization [facility] Address [address] [place] [address] Care Team Providers Care Precision Agriculture Specialist Name Role Phone Mingo Limon MD Primary Care Provider [phone] Reason for Visit * Reason Comments Med Refill Encounter Details Date Type Department Care Team (Late st Contact Info) Description 06/13/2025 1:00 PM EDT Office Visit [facility] PRIMARY CARE [address] [place] [address] [place] [address] Mingo Limon MD [address] [place] [address] ADHD, predominantly inattentive type (Primary Dx); Anxiety [...] all of which were normal. Referred to [facility] cardiology who completed echo 06/14/2024 which [...] , and recent testing through [facility] Abraham organic section technical lead reveals what appears to be a failed 1 hour 2-hour and 3-hour glucose challenge test, as such it appears she is progressing to a similar pattern. No current medications atthis time but keep regular follow-up with organic section technical lead. Of note she had been placed in [...] diagnosis by review of her history, with [place] forms showing the same. No comorbid sleep [...] with stability prefer to continue as per organic section technical lead. Of note we had transiently held ADHD [...] no SI/HI and handling her stressors appropriately. Otorhinolaryngologist has recommendedher to continue on the regimen [...] diagnosis by review of her history, with [place] forms showing the same. No comorbid sleep [...] with stability prefer to continue as per organic section technical lead. Of note we had transiently held ADHD [...] , and recent testing through [facility] Abraham organic section technical lead reveals what appears to be a failed 1 hour 2-hour and 3-hour glucose challenge test, as such it appears she is progressing to a similar pattern. No current medications atthis time but keep regular follow-up with organic section technical lead. Of note she had been placed in [...] all of which were normal. Referred to [facility] who completed echo 06/14/2024 which [...] follow up, ADHD monitoring. Mingo Limon MD [facility] documented in this encounter Plan of Treatment Upcoming Encounters Date Type Department Care Team (Late st Contact Info) Description 06/27/2025 11:15 AM EDT Office Visit [facility] MATERNAL MEDICINE [address] [place] [address] 06/27/2025 11:15 AM EDT Appointment [facility] DIAG [facility] [address] [place] [address] 08/09/2025 10:00 AM EDT Office Visit [facility] CARDIOLOGY [address] [place] [address] Franchesca Sullivan, PUNCH PRESS FEEDER [address] [place] [address] 08/19/2025 8:45 AM EDT Office Visit [facility] PRIMARY CARE [address] [place] [phone] Mingo Limon MD [address] [place] [address] documented as of this encounter Visit Diagnoses Diagnosis ADHD, predominantly inattentive type- Primary Attention deficit disorder without mention of hyperactivity Anxiety and depression Gestational diabetes mellitus (GDM) in second trimester controlled on oral hypoglycemic drug Mixed hyperlipidemia Palpitations documented in this encounter Care Teams Precision Agriculture Specialist Relationship Specialty Start Date End Date Mingo Limon MD [address] [place] [address] PCP - General Internal Medicine 07/30/22 documented as of this encounter
--- OUTSIDE RECORDS SUMMARY | 2025-06-17 16:31 | XMS_ITS | Encounter Summary ---
Author Organization [facility] Address [address] [place] [address] Care Team Providers Care Director Of Advertising Sales Name Role Phone Mingo Limon MD Primary Care Provider [phone] Reason for Visit * Reason Comments Med Refill Encounter Details Date Type Department Care Team (Late st Contact Info) Description 05/27/2025 Refill [facility] [address] [place] [address] [place] [address] Mingo Limon MD [address] [place] [address] ADHD, predominantly inattentive type Social [...] Description 06/27/2025 11:15 AM EDT Office Visit [facility] [address] [facility] [address] [place] [address] 06/27/2025 11:15 AM EDT Appointment [facility] [address] [place] [address] 08/09/2025 10:00 AM EDT Office Visit [facility] [address] [place] [phone] Franchesca Sullivan, HVAC ENGINEER [address] [place] [address] [place] [address] 08/19/2025 8:45 AM EDT Office Visit [facility] [address] [place] [address] [place] [address] Mingo Limon MD [address] [place] [address] [place] [id number] documented as of this encounter Visit Diagnoses Diagnosis ADHD, 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
--- OUTSIDE RECORDS SUMMARY | 2025-06-17 16:31 | XMS_ITS | Encounter Summary ---
Author Organization [facility] Address [address] [place] [address] Care Team Providers Care Doctor Of Osteopathy Name Role Phone Mingo Limon MD Primary Care Provider Encounter Details Date Type Department Care Team (Late st Contact Info) Description 05/16/2025 Telephone [facility] C[facility] [address] [place] [address] Franchesca Sullivan, FINANCIAL COACH [address] [place] [address] Social History Tobacco Use Types Packs/Day Years [...] patient. LVM to call back. Will send [employer] message. * Telephone Encounter - Ines Gonzales [...] Description 06/27/2025 11:15 AM EDT Office Visit [facility] [address] [place] [address] 06/27/2025 11:15 AM EDT Appointment [facility] [address] [place] [address] 08/09/2025 10:00 AM EDT Office Visit [facility] [address] [place] [address] Franchesca Sullivan, FINANCIAL COACH [address] [place] [address] 08/19/2025 8:45 AM EDT Office Visit [facility]IMARY [facility] [address] [place] [address] Mingo Limon MD [address] [place] [address] documented as of this encounter Visit Diagnoses Not on filedocumented in this encounter Care Teams Doctor Of Osteopathy Relationship Specialty Start Date End Date Mingo Limon MD [address] [place] [address] PCP - General Internal Medicine 07/30/22 documented as of this encounter
--- OUTSIDE RECORDS SUMMARY | 2025-06-17 16:31 | XMS_ITS | Encounter Summary ---
Author Organization [facility] Address [address] [place] [address] Care Team Providers Care Engraver Steel Plate Name Role Phone Mingo Limon MD Primary [...] Description 06/27/2025 11:15 AM EDT Office Visit [facility] MED[facility]INE [address] [place] [address] 06/27/2025 11:15 AM EDT Appointment [facility] [address] [place] [address] 08/09/2025 10:00 AM EDT Office Visit [facility] CARDIOLOG[facility] [address] [place] [phone] Franchesca Sullivan, ADOPTION SOCIAL WORKER [address] [place] [address] 08/19/2025 8:45 AM EDT Office Visit [facility] [address] [place] [address] [place] [address] Mingo Limon MD [address] [place] [address] [place] [address] documented as of this encounter Visit Diagnoses Not on filedocumented in this encounter Care Teams Engraver Steel Plate Relationship Specialty Start Date End Date Mingo Limon MD [address] [place] [address] [place] [address] PCP - General Internal Medicine 07/30/22 documented as of this encounter
--- OUTSIDE RECORDS SUMMARY | 2025-06-17 16:31 | XMS_ITS | Encounter Summary ---
Author Organization [facility] Address [address] [place] [address] Care Team Providers Care Second Operator Name Role Phone Mingo Limon MD [...] [facility] [address] [place] [address] [phone] 06/27/2025 11:15 AM EDT Appointment [facility] DI[facility] [address] [place] [address] 08/09/2025 10:00 AM EDT Office Visit [facility] CARDIOLOGY [address] [place] [address] Franchesca Sullivan, SURVEYOR'S ASSISTANT [address] [place] [address] 08/19/2025 8:45 AM EDT Office Visit [facility] PRIMARY [facility]ARE [address] [place] [address] [place] [phone] Mingo Limon MD [address] [place] [address] [place] [address] documented as of this encounter Visit Diagnoses Not on filedocumented in this encounter Care Teams Second Operator Relationship Specialty Start Date End Date Mingo Limon MD [address] [place] [address] [place] [address] PCP - General Internal Medicine 07/30/22 documented as of this encounter
--- OUTSIDE RECORDS SUMMARY | 2025-06-17 16:31 | XMS_ITS | Clinical Summary ---
Author Organization [facility] Address [address] [place] [address] Care Team Providers Care Cook Jelly Name Role Phone Mingo Limon MD Primary Care Provider [phone] Allergies No known active allergies Medications fluticasone [...] that on Tuesday she bent over to flower buncher or picker her child and her heart rate went [...] all of which were normal. Referred to [facility] [place] cardiology who completed echo 06/14/2024 which was [...] need to switch to labetalol per her INSOLE PRESSER Dr. Kimbrough at [facility]. Patient has been instructed to start out [...] all of which were normal. Referred to [facility] [place] cardiology who completed echo 06/14/2024 which was normal and had nonconcerning Holter monitor. Initial metoprolol 25 mg ER daily, switch to propranolol 20 mg in the potential she could get in the future this would prefer medicine. Overall she is clinically feeling better on regimen medicine. Keep follow-up with [facility] [place] cardiology. Assessment & Plan (06/14/2024 4:33 PM [...] sensation with sitting to standing, with equivocal Harris-Hallpike maneuver which has since resolved. At that [...] a bit of a dizzy sensation with Harris-Hallpike maneuver to the left she did not [...] Patient previously been using NuvaRing through her window repairer, but has interested in switching over to [...] to treatment she could discuss with her OB/window repairer currently with concern, about next treatment option. [...] , and recent testing through [facility] locomotive repairer diesel reveals what appears to be a failed 1 hour 2-hour and 3-hour glucose challenge test, as such it appears she is progressing to a similar pattern. No current medications at this time but keep regular follow-up with locomotive repairer diesel. 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 Santos, locomotive repairer diesel and [facility]. Plan in place with potential complications of transition to [facility] if she delivers earlier has significant complication [...] diabetes mellitus. Nonetheless keep regular follow-up with OB/window repairer who has placed her on glipizide 5 [...] diagnosis by review of her history, with [place] forms showing the same. No comorbid sleep [...] with stability prefer to continue as per locomotive repairer diesel. Of note we had transiently held ADHD [...] diagnosis by review of her history, with [place] forms showing the same. No comorbid sleep [...] with stability prefer to continue as per locomotive repairer diesel. Of note we had transiently held ADHD [...] diagnosis by review of her history, with [place] forms showing the same. No comorbid sleep [...] diagnosis by review of her history, with [place] forms showing the same. No comorbid sleep [...] diagnosis by review of her history, with [place] forms showing the same. No comorbid sleep [...] diagnosis by review of her history, with [place] forms showing the same. No comorbid sleep [...] diagnosis by review of her history, with [place] forms showing the same. 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 Reinforced healthy diet, good activity level is [...] Office Visit [facility] [address] [place] [address] [place] [address] Mingo Limon MD ADHD, predominantly inattentive type (Primary Dx); Anxiety and depression; Gestational diabetes mellitus (GDM) in second trimester controlled on oral hypoglycemic drug; Mixed hyperlipidemia; Palpitations 06/13/2025 Travel 05/27/2025 Refill [facility] [address] [place] [address] [place] [address] Mingo Limon MD ADHD, predominantly inattentive type 05/23/2025 10:30 AM EDT Office Visit [facility] [address] [facility] [address] [place] [address] Sarah George MD Bicornuate uterus (Primary Dx) 05/23/2025 10:06 AM EDT - 05/23/2025 11:59 PM EDT Hospital Encounter [facility] PER DIAG CTR [address] [place] [phone] Milton Puentes MD 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, antepartum; History of delivery, currently ; Tachycardia; History of gestational diabetes in prior , currently ; , unspecified gestational age; Encounter for repeat ultrasound of pyelectasis, antepartum, not applicable or unspecified fetus Discharge Disposition: Home or Self Care 05/23/2025 Travel 05/16/2025 Telephone [facility] [address] [place] [address] Sarah Hare APRN 05/13/2025 Results Follow-Up [facility] [address] [place] [address] Mingo Limon MD 05/10/2025 1:15 PM EDT Office Visit [facility] [address] [place] [address] Mingo Limon MD Acute cystitis without hematuria (Primary Dx); ADHD, predominantly inattentive type; Anxiety and depression 05/10/2025 12:30 PM EDT Office Visit [facility] [address] [place] [address] Sarah Hare, SENIOR TABLEAU DEVELOPER Palpitations (Primary Dx); Tachycardia 05/10/2025 Travel 05/08/2025 Telephone [facility] [address] [place] [address] Sarah Hare, SENIOR TABLEAU DEVELOPER SARAH HARE-APOINTMENT 04/09/2025 Refill [facility] [address] [place] [address] Mingo Limon MD Anxiety and depression; ADHD, predominantly inattentive type 04/04/2025 Refill [facility] [address] [place] [address] Mingo Limon MD ADHD, predominantly inattentive type 04/04/2025 Refill [facility] [address] [place] [address] [place] [address] Mingo Limon MD ADHD, predominantly inattentive type 03/21/2025 Refill [facility] [address] [place], [place] [...] Description 06/27/2025 11:15 AM EDT Office Visit [facility] [address] [place] [address] 06/27/2025 11:15 AM EDT Appointment [facility] US PER DIAG CTR [address] [place] [address] 08/09/2025 10:00 AM EDT Office Visit [facility] [address] [place] [address] SeSarah he W, SENIOR TABLEAU DEVELOPER [address] [place] [address] [place] [address] 08/19/2025 8:45 AM EDT Office Visit [facility] [address] [place] [address] Mingo Limon MD [address] [place] [address] Health Maintenance Due Date Last Done Comments [...] Priority Date/Time Associated Diagnosis Comments SCANNED - IMAGING 06/16/2025 SCANNED - LABS 06/10/2025 [facility] Routine 05/23/2025 11:41 AM EDT [...] Recently Relevant to Health Maintenance Results * IMAGING SCANNED (06/16/2025) Only the most recent of2 resultswithin the time period is included. Anatomical Region Laterality Modality Radiographic Aurelia ging Mingo Limon MD IMG DIAGNOSTIC IMAGING ORDERABLE S Final Result * LABS SCANNED (06/10/2025) us Mingo Limon MD LAB BLOOD ORDERABLES Final Resul t * US [facility] (05/23/2025 11:41 AM EDT) Anatomical Region Laterality Modality Ultrasound 05/23/2025 10:5 2 AM EDT Narrative 05/23/2025 11:50 AM EDT PAT NAME: KARMEN BRAVO MED REC#: [id number] DA: 2000 PAT GEND: F PAT TYPE: O EXAM RO: [id number] REF PHYS MILTON PUENTES Comparison Studies There [...] ====== Method of dating: based on stated HCANTE GA by prior assessment 23 w + [...] EFW (oz) 5 oz EFW by: Hadlock ([id number]-FL) Extended Tibia 34.7 mm 23w 0d 40% Yocasta Fibula 33.3 mm 22w 1d 32% Yocasta Radius 33.5 mm 23w 5d 56% Yocasta Ulna 36.5 mm 24w 3d 69% Yocasta Cav. septi pel. tr 4.4 mm Software Developer Mid Level 3.4 mm CM 7.8 mm 94% [...] normal IVC: normal 3-vessel view: Appears normal 3-nykaqq-imxlopm view: Appears normal Rt lung: Appears normal [...] weeks GA for growth Coding ======= Description: 71127-05 Detailed Pit Supervisor: Jennifer Ruby RDMS Physician: Sarha George MD, FACOG Electronically signed by: Sarah George MD, FACOG at: 11:50 Procedure Note Sarah George MD - 05/23/2025 PAT NAME: KARMEN BRAVO MED REC#: [id number] DA: 2000 PAT GEND: F PAT TYPE: O EXAM RO: [id number] REF PHYS MILTON PUENTES Comparison Studies There are no relevant prior studies to which this study is beingcompared Patient Status Outpatient Indication ======== Concern for bilateral UTD. Bicornuate uterus. Previous PROM/PTD @32 wks Maternal Assessment Lqkqbx219 cm Height (ft)4 ft Height (in)9 in Xbmcwq20 kg Weight (lb)193 lb BMI41.07 kg/m Method ======= Transabdominal ultrasound examination. View: Limited by patient bodyhabitus ========= Rasmussen . Number of fetuses: 1 Dating ====== Method of dating:based on stated CHANTE GA by prior zlxdmzkvsi01 w + 1 d CHANTE by prior assessment:09/18/2025 Ultrasound examination on:05/23/2025 GA by U/S based upon:AC, BPD, Femur, HC GA by U/S23 w + 0 d CHANTE by U/S:09/19/2025 Assigned:based on stated CHANTE, selected on 05/23/2025 Assigned GA23 w + 1 d Assigned CHANTE:09/18/2025 ufdgqh463 d Biometry Standard BPD53.0 mm 22w 1d 12% Hadlock OFD77.9 mm 25w 3d 98% Yocasta HC212.4 mm 23w 2d 41% Hadlock Cerebellum tr25.7 mm 23w 1d 82% Hill AC197.3 mm 24w 3d 80% Hadlock Femur38.4 mm 22w 2d 15% Hadlock Omplxql01.0 mm 24w 2d 76% Yocasta HC / AC1.08 EGX578 g 23w 2d 54% Hadlock EFW (lb)1 lb EFW (oz)5 oz EFW by:Hadlock (QHT-DE-RS-FL) Extended Tibia34.7 mm 23w 0d 40% Yocasta Jxuzlq42.3 mm 22w 1d 32% Yocasta Uejrts68.5 mm 23w 5d 56% Yocasta Ulna36.5 mm 24w 3d 69% Yocasta Cav. septi pel. tr4.4 mm Vp3.4 mm CM7.8 mm 94% Nicolaides Nasal bone8.8 mm Rt Renal pelvis ap4.3 mm Lt Renal pelvis ap3.2 mm Head / Face / Neck Cephalic index0.68 <1% Nicolaides Extremities / Bony Struc FL / BPD0.72 FL / HC0.18 FL / AC0.19 Other Structures DIE824 bpm General Evaluation Cardiac activity present. FHR [...] view:Appears normal SVC:normal IVC:normal 3-vessel view:Appears normal 0-beqfrb-vyyjzsm view:Appears normal Rt lung:Appears normal Lt lung:normal [...] of uterine malformations:bicornuate uterus Cervix:Visualized Approach:Transabdominal Cervical ogtpsk59.0 mm Ovaries / Tubes / Adnexa Rt ovary:Visualized Lt ovary:Visualized Impression Today's exam reveals a SIUP with biometry consistent with dates. Mildunilateral renal pelvic dilation. Otherwise anatomic survey appearsnormal. Fluid is normal. The placenta is anterior, high. The TA cervical length appears adequate Recommendation Follow up 32 weeks GA for growth Coding ======= Description:29853-75 Detailed Pit Supervisor: Jennifer Ruby RDMS Physician: Sarah George MD, FACOG Electronically signed by: Sarah George MD, FACOG at: 1:50 us Milton Puentes MD IM US ORDERABLES Final Resul t * Urine Culture - Urine, Urine, Clean Catch (05/10/2025 1:49 PM EDT) Urine Culture Final report [facility] Result 1 Comment [facility] Comment: Mixed urogenital biju 10,000-25,000 colony forming units per mL Urine Urine specimen obtained by clean catch procedure / Unknown 05/10/2025 1:49 PM EDT 05/10/2025 Comment:Urine Release to [facility] i Narrative [facility] (AMBULATORY) - 05/12/2025 6:37 AM EDT Performed at: - [facility] [id number] Administrative Office Manager: Dagoberto Campbell PhD, Phone: [phone] us Mingo Limon MD MICROBIOLOGY - GENERAL ORDERABLE S Final Result [facility] [address] [place] [address], [facility] [address] [place] [address], * (ABNORMAL) POC Urinalysis Dipstick (05/10/2025 1:38 PM EDT) Color Dark Yellow Yellow, Straw, Dark Yellow, Char [facility] Clarity, UA Cloudy(A) Clear [facility] Glucose, UA Negative Negative mg/dL [facility] Bilirubin Negative Negative [facility] Ketones, UA Negative Negative [facility] Specific [place] 1.010 1.005 - 1.030 [facility] Blood, UA Negative Negative [facility] pH, Urine 8.0 5.0 - 8.0 [facility] Protein, POC Negative Negative mg/dL [facility] Urobilinogen, UA Normal Normal, 0.2 E.U./dL [facility] Leukocytes Large (3+)(A) Negative [facility] Nitrite, UA Negative Negative [facility] Urine 05/10/2025 1:38 PM EDT Mingo Limon MD POINT OF CARE TEST ORDERABLES Fi nal Result [facility]
[address] [place] [address], * LIQUID-BASED PAP SMEAR WITH HPV GENOTYPING IF ASCUS (GEENA,COR,MAD) (08/27/2024 9:58 AM EDT) Pathologist [facility] Reference Lab Report [facility] [address] [place] [address] or [phone] Masood Herron M.D., Poly Packer And Heat Sealer PATIENT NAME LABORATORY NO. [id number] KARMEN BRAVO [id number] AGE SEX SSN CLIENT REF # [facility] 22 2000 F [id number] [facility] ANNA RENDON REQUESTING Joe [place] [address] CECILIA CONTRERAS DATE COLLECTED DATE RECEIVED DATE REPORTED 08/27/2024 [...] of chlamydial and gonococcal disease using the [place] system. ENVIRONMENTAL ENGINEERING TECHNICIAN: JOSHUA OSORIO (ASCP) CPT CODES: [id number], [id number], [id number] 09/04/2024 10:12 AM EDT [facility] ThinPrep Vial Cervix uteri structure / Unknown Collection / Unknown 08/27/2024 9:58 AM EDT 08/27/2024 9:58 AM EDT Cecilia Contreras SENIOR TABLEAU DEVELOPER PATHOLOGY/CYTOLOGY ORDERA BLES Final Result [facility]
[address] [place] [address], * (ABNORMAL) Lipid Panel (05/21/2024 12:34 PM [...] 05/21/2024 Comment:Blood Manual Differe n Narrative [facility] ([facility]BULATORY) - 05/22/2024 8:10 AM EDT Performed at: 01 - [facility] [address] [place], [place] [id number] Administrative Office Manager: Dagoberto Campbell PhD, Phone: [phone] us Mingo Limon MD LAB BLOOD ORDERABLES Final Resul t [facility] (AMBULATORY) [address] [place] [address], [place] [phone] [facility] [address] [place] [address], from Last 3 Months or Most Recently Relevant to Health Maintenance Insurance [facility] Care Teams Cook Jelly Relationship Specialty Start Date End Date Mingo Limon MD [address] [place] [address] [place] [address] PCP - General Internal Medicine 07/30/22
--- OUTSIDE RECORDS SUMMARY | 2025-06-17 16:32 | XMS_ITS | Encounter Summary ---
Author Organization [facility] Address [address] [place] [address] Care Team Providers Care Associate Professor Of Law Name Role Phone Mingo Limon MD Primary Care Provider Encounter Details Date Type Department Care Team (Late st Contact Info) Description 05/13/2025 Results Follow-Up [facility] [address] [place] [address] Mingo Limon MD [address] [place] [address] Social History Tobacco Use Types Packs/Day Years [...] Description 06/27/2025 11:15 AM EDT Office Visit [facility] [address] [place] [address] 06/27/2025 11:15 AM EDT Appointment [facility] US PER DIAG CTR [address] [place] [address] 08/09/2025 10:00 AM EDT Office Visit [facility] [address] [place] [phone] Franchesca Sullivan, FOOTWEAR FACTORY WORKER [address] [place] [address] [place] [address] 08/19/2025 8:45 AM EDT Office Visit [facility] [address] [place] [address] Mingo Limon MD [address] [place] [address] [place] [address] documented as of this encounter Visit Diagnoses Not on filedocumented in this encounter Care Teams Associate Professor Of Law Relationship Specialty Start Date End Date Mingo Limon MD [address] [place] [address] [place] [address] PCP - General Internal Medicine 07/30/22 documented as of this encounter
--- OUTSIDE RECORDS SUMMARY | 2025-06-17 16:32 | XMS_ITS | Patient Health Record ---
Author Organization [facility] Address [address] [place] [address] Care Team Providers Care [place] Name Role Phone SANDOR GONZALEZ Unavailable [phone] Sandor Gonzalez MD Unavailable Unavailable Allergies No [...] Insured Coverage Start Date Coverage End Date [facility] MEDICAID [address] [place] [address] [id number] [place] BRAVO Self - patient is the insured Medical (General) History Medical History History ICD Code DEPRESSION AND ANXIETY Surgical History Surgery Date(Month/Year) WISDOM TEETH 2019
--- OUTSIDE RECORDS SUMMARY | 2025-06-17 16:32 | XMS_ITS | Encounter Summary ---
Author Organization [facility] Address [address] [place] [address] Care Team Providers Care Marble Installer Name Role Phone Mingo Limon MD Primary Care Provider [phone] Encounter Details Date Type Department Care Team [...] Description 06/27/2025 11:15 AM EDT Office Visit [facility] [address] [place] [address] 06/27/2025 11:15 AM EDT Appointment [facility] US PER DIAG CTR [address] [place] [address] 08/09/2025 10:00 AM EDT Office Visit [facility] [address] [place] [address] Franchesca Sullivan, SEWING INSPECTOR [address] [place] [address] [place] [address] 08/19/2025 8:45 AM EDT Office Visit [facility] [address] [place] [address] [place] [address] Mingo Limon MD [address] [place] [address] [place] [address] documented as of this encounter Visit Diagnoses Not on filedocumented in this encounter Care Teams Marble Installer Relationship Specialty Start Date End Date Mingo Limon MD [address] [place] [address] [place] [address] PCP - General Internal Medicine 07/30/22 documented as of this encounter
--- OUTSIDE RECORDS SUMMARY | 2025-06-17 16:32 | XMS_ITS | Clinical Summary ---
Author Organization [facility] Address [address] [place] [address] Care Team Providers Care Sr. Payroll Manager Name Role Phone Pcp, No Primary Care [...] drink first t elyssa in the morning (EYE-HAND BOOKED FOLDER AND STITCHER) to steady your nerves or to get [...] [facility]-Adult SDOH Screenings 2020 [facility]-Pap Smear 2023 [id number] Vaccine ( season) 2024 10/12/2021, 04/01/2021, 03/04/2021 [...] require contact precautions indefinitely. 05/07/2023 05/07/2023 Insurance [facility] Advance Directives * Full Code (Latest Code Status on File) Date Activated Date Inactivated Comments 05/03/2023 8:40 AM 05/09/2023 7:09 PM Question Answer Comments Patient has decision-making capacity? Yes Care Teams Sr. Payroll Manager Relationship Specialty Start Date End Date Pcp, No [address] [place] [address] PCP - General Family Medicine 05/02/23
--- OUTSIDE RECORDS SUMMARY | 2025-06-17 16:32 | XMS_ITS | Encounter Summary ---
Author Organization [facility] Address [address] [place] [address] Care Team Providers Care Software Support Engineer Name Role Phone Mingo Limon MD Primary Care Provider [phone] Reason for Visit * Reason Onset Date Comments FRANCHESCA BADILLO 05/08/2025 Encounter Details Date Type Department Care Team (Late st Contact Info) Description 05/08/2025 Telephone [facility] [address] [place] [address] Franchesca Hare, TECHNICIAN ANATOMIC PATHOLOGY [address] [place] [address] [place] [address] FRANCHESCA HARE-LUIS Social History Tobacco Use Types [...] to patient: Self Best call back number: [phone] Chief complaint: Type of visit: FOLLOW UP [...] Description 06/27/2025 11:15 AM EDT Office Visit [facility] [address] [facility] [address] [place] [address] 06/27/2025 11:15 AM EDT Appointment [facility] US PER DIAG CTR [address] [place] [address] 08/09/2025 10:00 AM EDT Office Visit [facility] [address] [place] [address] Franchesca Hare W, TECHNICIAN ANATOMIC PATHOLOGY [address] [place] [address] 08/19/2025 8:45 AM EDT Office Visit [facility] [address] [place] [address] [address] [facility]ingo [facility]on [facility] [place] [address] documented as of this encounter Visit Diagnoses Not on filedocumented in this encounter Care Teams Software Support Engineer Relationship Specialty Start Date End Date Mingo Limon MD [address] [place] [address] [place] [address] PCP - General Internal Medicine 07/30/22 documented as of this encounter
[2025-06-17 16:50] VITALS: BP 114/62; PULSE 117; RESP 18; TEMP 37; O2SAT 98
--- NOTE | 2025-06-17 16:50 | PC.NURSE ---
1650- Pt arrived to the unit at this time for steriod injection.
[2025-06-17] MEDS: BETAMETHASONE ACET/PHOS 6MG/ML 5ML MDV 12 MG IM (17:00)
== END 2025-06-17 17:15 | disposition home or self-care (01) ==
LOC: OBOUT 16:30
PROVIDERS: PCP Pediatrics; Visit Provider Nurse Practitioner Obstetrics & Gynecology
DX: O09.212 Supervision of pregnancy with history of pre-term labor, second trimester (principal); O34.02 Maternal care for unspecified congenital malformation of uterus, second trimester; Q51.3 Bicornate uterus; Z3A.26 26 weeks gestation of pregnancy
CPT/HCPCS: 96372; 99212; G0463; J0702

== ENCOUNTER 2025-06-26 08:55 | Outpatient (CLI) | payer OTHER, SELFPAY ==
--- OUTSIDE RECORDS SUMMARY | 2025-05-10 12:30 | XMS_ITS | Encounter Summary ---
Author Organization [facility] Address [address] [place] [address] Care Team Providers Care Inspector Technician Name Role Phone Mingo Limon MD Primary Care Provider [phone] Reason for Visit * Reason Comments Follow-up Medication follow up Encounter Details Date Type Department Care Team (Late st Contact Info) Description 05/10/2025 12:30 PM EDT Office Visit [facility] CARDIOLOGY [address] [place] [address] SeFranchesca he, PURCHASING MANAGER [address] [place] [address] Palpitations (Primary Dx); Tachycardia Social History Tobacco Use Types Packs/Day Years Used Date Smoking Tobacco: Never Passive Smoke Exposure: Never Smokeless Tobacco: Never Tobacco Cessation:Counseling Given: Not Answered Alcohol Use Standard Drinks/Week Comments Not Currently 0 (1 standard drink = 0.6 oz pure alcohol) occasional use when not PHQ-2 Answer Date Recorded Retired PHQ-9: Brief Depression Severity Measure Score 0 09/02/2023 PHQ-2 Answer Date Recorded Retired PHQ-9: Brief Depression Severity Measure Score 0 08/17/2024 Estimated Date of Delivery Comme nts Yes 09/18/2025 Date entered ranjana or to episode creation Sex and Gender Information Value Date Recorded Sex Assigned at Female 07/18/2023 11:24 AM EDT Legal Sex Female 11:26 AM EDT Gender Identity Female 07/18/2023 11:24 AM EDT Sexual Orientation Not on file documented as of this encounter Last Filed Vital Signs Vital Sign Reading Time Taken Comments Blood Pressure 118/74 05/10/2025 12:17 PM EDT Pulse 88 05/10/2025 12:17 PM EDT Temperature - - Respiratory Rate - - Oxygen Saturation 99% 05/10/2025 12: 17 PM EDT Inhaled Oxygen Concentration - - Weight 86.1 kg (189 lb 12.8 oz) 025 12:17 PM EDT Height 147.3 cm (4' 9.99 ) 05/10/2025 1 2:17 PM EDT Body Mass Index 39.68 05/10/2025 12:17 PM EDT documented in this encounter Progress Notes * Franchesca Sullivan APRN - 05/10/2025 1:12 PM EDTAssociated Problem(s): Tachycardia Patient reports that she can tell when she does not take her beta-brooke. She states that if she misses it her heart rate goes up and she continues to have worsening palpitations. She reports she ishaving tachycardia about 3 times a week. Will change the propranolol to labetalol 100 mg twice a day. Patient has been given instructions to monitor her blood pressure and if she is experiencing low blood pressures to stop the medication. * Franchesca Sulliavn APRN - 05/10/2025 1:11 PM EDTAssociated Problem(s): Palpitations Patient reports that the propranolol has been helping with her palpitations. She states that she is21 weeks and will need to switch to labetalol per her TRAFFIC MAINTENANCE OFFICER Dr. Kimbrough at [facility]. Patient has been instructed to start out with 1 tablet daily and check her blood pressures at home.She reported that she had had some low blood pressure while in the ER last week. Labetalol 100 mg twice a day patient to start with 1 tablet daily and if tolerating she may take 2 tablets daily. * Franchesca Sullivan APRN - 05/10/2025 12:30 PM EDT Images from the original note were not included. [facility] Provider Note Date: 05/10/2025 Name: Karmen Gu : 2000 PCP: Mingo Limon MD Chief Complaint Patient presents with Follow-up Medication follow up Subjective History of Present Illness Karmen Gu is a 25 y.o. female who presents today for medication adjustment. Patient states she is 21 weeks and her OBGYN want her propranolol changed to labetalol. She states she has had some low blood pressure when she went to the ER last week. She states her systolic BP was 90 and when they took it again it back to normal. She states that when she misses her beta brooke she can really tell because she has increased heart rate and her palpitations get worse. Patient states she will be seeing OB at [facility] for high risk . She states she abnormally shaped uterus and has had premature labor with her first baby. Patient has been instructed that her new prescription of labetalol 100 mg twice daily for her to start out with 1 tablet daily and monitor her blood pressure and heart rate. If her blood pressure is stable and not dropping she can increase it to 2 tablets daily. Since she will be following with High risk at [facility] and her regular OBGYN she will be closely monitored. Patient denies any chest pain, shortness of air (other than being ), edema, dizziness, or syncope. Cardiac History: Holter Monitor 05/28/24 A normal monitor study. No significant pauses or arrhythmias. Patient events corresponded to sinus tachycardia. ECHO 06/14/24 Left ventricular systolic function is normal. Left ventricular ejection fraction appears to be 66 - 70%. Left ventricular diastolic function was normal. No significant valvular regurgitation or stenosis present. Reports Denies Chest Pain [] [x] Shortness of Air [] [x] Palpitations [x] [] Edema [] [x] Dizziness [] [x] Syncope [] [x] No Known Allergies Current Outpatient Medications: albuterol sulfate HFA 108 (90 Base) MCG/ACT inhaler, Inhale 2 puffs Every 4 (Four) Hours As Needed for Wheezing., Disp: 18 g, Rfl: 2 Allergy Relief 10 MG tablet, Take 1 tablet by mouth Daily., Disp: 30 tablet, Rfl: 3 budesonide-formoterol (Symbicort) 160-4.5 MCG/ACT inhaler, Inhale 2 puffs Every 4 (Four) Hours As Needed (Asthma). Rinse mouth with water after each use, Disp: 10.2 g, Rfl: 1 buPROPion XL (WELLBUTRIN XL) 300 MG 24 hr tablet, Take 1 tablet by mouth Daily., Disp: 30 tablet, Rfl: 2 busPIRone (BUSPAR) 15 MG tablet, Take 1 tablet by mouth 2 (Two) Times a Day., Disp: 180 tablet, Rfl: 1 escitalopram (LEXAPRO) 20 MG tablet, Take 1 tablet by mouth Daily., Disp: 90 tablet, Rfl: 1 fluticasone (FLONASE) 50 MCG/ACT nasal spray, 2 sprays into the nostril(s) as directed by provider Daily., Disp: 15.8 mL, Rfl: 3 methylphenidate (RITALIN) 5 MG tablet, Take 1 tablet by mouth Daily With Lunch., Disp: 30 tablet, Rfl: 0 methylphenidate 36 MG CR tablet, Take 1 tablet by mouth Every Morning, Disp: 30 tablet, Rfl: 0 montelukast (Singulair) 10 MG tablet, Take 1 tablet by mouth Every Night., Disp: 30 tablet, Rfl: 3 Vit-Fe Fumarate-FA ( vitamin 27-0.8) 27-0.8 MG tablet tablet, Take 1 tablet by mouth Daily., Disp: , Rfl: labetalol (NORMODYNE) 100 MG tablet, Take 1 tablet by mouth 2 (Two) Times a Day., Disp: 30 tablet, Rfl: 11 Past Medical History: Diagnosis Date ADHD, predominantly inattentive type Allergic rhinitis Allergies History of mild asthmatic episode secondary to allergies Anxiety disorder, unspecified Asthma Bicornuate uterus dx prior to in 2021 Cellulitis of right toe Childhood obesity Dysmenorrhea Female infertility 09/21/22 Generalized anxiety disorder Gestational diabetes 04/08/23 Headache Intermittent constipation Major depressive disorder, recurrent, mild Other obesity due to excess calories Pain in right ankle and joints of right foot Pain in right foot Plantar fascial fibromatosis Primary focal hyperhidrosis, axilla Streptococcal pharyngitis Unspecified eustachian tube disorder, right ear Urinary tract infection Past Surgical History: Procedure Laterality Date WISDOM TOOTH EXTRACTION 2018 Family History Problem Relation Age of Onset Anxiety disorder Mother Depression Mother Diabetes type II Father Hypertension Father Hyperlipidemia Father Diabetes Father Breast cancer Maternal Grandmother 57 Hypertension Maternal Grandmother COPD Maternal Grandfather Coronary artery disease Maternal Grandfather Diabetes type II Maternal Grandfather COPD Paternal Grandmother Diabetes type II Paternal Grandmother Hypertension Paternal Grandfather Diabetes type II Paternal Grandfather Breast cancer Paternal Great-Grandmother Uterine cancer Maternal Great-Grandmother Social History Socioeconomic History Marital status: Single Tobacco Use Smoking status: Never Passive exposure: Never Smokeless tobacco: Never Vaping Use Vaping status: Never Used Substance and Sexual Activity Alcohol use: Not Currently Comment: occasional use when not Drug use: Never Comment: no concerning use pattern Sexual activity: Yes Partners: Male control/protection: Depo-provera Objective Vital Signs: BP 118/74 (BP Location: Left arm, Patient Position: Sitting, Cuff Size: Adult) Pulse 88 Ht 147.3 cm (57.99 ) Wt 86.1 kg (189 lb 12.8 oz) SpO2 99% BMI 39.68 kg/m?? Estimated body mass index is 39.68 kg/m?? as calculated from the following: Height as of this encounter: 147.3 cm (57.99 ). Weight as of this encounter: 86.1 kg (189 lb 12.8 oz). Physical Exam Constitutional: Appearance: Normal appearance. Cardiovascular: Rate and Rhythm: Regular rhythm. Tachycardia present. Pulses: Normal pulses. Heart sounds: Normal heart sounds. Pulmonary: Effort: Pulmonary effort is normal. Breath sounds: Normal breath sounds. Musculoskeletal: General: Normal range of motion. Skin: General: Skin is warm and dry. Capillary Refill: Capillary refill takes less than 2 seconds. Neurological: General: No focal deficit present. Mental Status: She is alert and oriented to person, place, and time. Psychiatric: Mood and Affect: Mood normal. Behavior: Behavior normal. Thought Content: Thought content normal. Judgment: Judgment normal. Assessment and Plan Diagnoses and all orders for this visit: 1. Palpitations (Primary) Assessment & Plan: Patient reports that the propranolol has been helping with her palpitations. She states that she is21 weeks and will need to switch to labetalol per her TRAFFIC MAINTENANCE OFFICER Dr. Kimbrough at [facility]. Patient has been instructed to start out with 1 tablet daily and check her blood pressures at home.She reported that she had had some low blood pressure while in the ER last week. Labetalol 100 mg twice a day patient to start with 1 tablet daily and if tolerating she may take 2 tablets daily. Orders: - labetalol (NORMODYNE) 100 MG tablet; Take 1 tablet by mouth 2 (Two) Times a Day. Dispense: 30 tablet; Refill: 11 2. Tachycardia Assessment & Plan: Patient reports that she can tell when she does not take her beta-brooke. She states that if she misses it her heart rate goes up and she continues to have worsening palpitations. She reports she ishaving tachycardia about 3 times a week. Will change the propranolol to labetalol 100 mg twice a day. Patient has been given instructions to monitor her blood pressure and if she is experiencing low blood pressures to stop the medication. Orders: - labetalol (NORMODYNE) 100 MG tablet; Take 1 tablet by mouth 2 (Two) Times a Day. Dispense: 30 tablet; Refill: 11 Recommendations: ER if symptoms increase, Report if any new/changing symptoms immediately, Limit salt, and Limit caffeine Follow Up No follow-ups on file. Patient was given instructions and counseling regarding her condition or for health maintenance advice. Please see specific information pulled into the AVS if appropriate. documented in this encounter Plan of Treatment Upcoming Encounters Date Type Department Care Team (Late st Contact Info) Description 07/01/2025 11:45 AM EDT Appointment [facility] DI[facility]ET[facility] ED [address] [place] [address] 07/26/2025 7:30 AM EDT Office Visit [facility] [address] [facility] [address] [place] [address] 07/26/2025 7:30 AM EDT Appointment [facility] [address] [place] [address] 08/09/2025 10:00 AM EDT Office Visit [facility] CARDIOLOGY [address] [address] Franchesca Sullivan, PURCHASING MANAGER [address] [place] [address] 08/19/2025 8:45 AM EDT Office Visit [facility] PRIMARY CARE [address] [place] [address] [place] [address] Mingo Limon MD [address] [place] [address] [place] [address] documented as of this encounter Visit Diagnoses Diagnosis Palpitations- Primary Tachycardia Unspecified tachycardia documented in this encounter Care Teams Inspector Technician Relationship Specialty Start Date End Date Mingo Limon MD [address] [place] [address] [place] [address] PCP - General Internal Medicine 07/30/22 documented as of this encounter
--- OUTSIDE RECORDS SUMMARY | 2025-05-10 13:15 | XMS_ITS | Encounter Summary ---
Author Organization [facility] Address [address] [place] [address] Care Team Providers Care Machine Operations Supervisor Name Role Phone Mingo Limon MD Primary Care Provider [phone] Reason for Visit * Reason Comments Urinary Tract Infection Encounter Details Date Type Department Care Team (Late st Contact Info) Description 05/10/2025 1:15 PM EDT Office Visit [facility] PRIMARY CARE [address] [place] [address] Mingo Limon MD [address] [place] [address] Acute cystitis without hematuria (Primary Dx); ADHD, predominantly inattentive type; Anxiety and depression Social History Tobacco Use Types Packs/Day Years Used Date Smoking Tobacco: Never Passive Smoke Exposure: Never Smokeless Tobacco: Never Alcohol Use Standard Drinks/Week Comments Not Currently [...] Sign Reading Time Taken Comments Blood Pressure 106/74 05/10/2025 1:13 PM EDT Pulse 109 05/10/2025 1:13 PM EDT Temperature 36.8 C (98.2 F) 05/10/2025 1:13 PM EDT Respiratory Rate 20 05/10/2025 1:13 PM EDT Oxygen Saturation 99% 05/10/2025 1:13 PM EDT Inhaled Oxygen Concentration - - Weight 86.2 kg (190 lb) 05/10/2025 1:13 PM EDT Height 147.3 cm (4' 9.99 ) 05/10/2025 1:13 PM ED T Body Mass Index 39.72 05/10/2025 1:13 PM EDT documented in this encounter Progress Notes * Minog Limon MD - 05/10/2025 2:10 PM EDTAssociated Problem(s): Anxiety and depression Initially discussed in detail 08/26/2020 with initiation of buspirone 7.5 mg twice daily and fluoxetine 20 mg daily, as her mother had done well nose medicines prior. She continued a good response medicine that as a fall 2020, resuming again 03/02/2022 with fluoxetine 20 mg daily, buspirone 7.5 mg twice daily, and as of April 2022 with some breakthrough stressors, we switched to Lexapro titrated to 20 mg daily, and buspirone to 15 mg twice daily, with benefit. She was generally doing well but untilthe end of her in May 2023, where she had a premature requiring NICU stay with understandably increased stressors, as such we added Wellbutrin 150 mg XL daily to regimen Lexapro andbuspirone, and increased Wellbutrin 150 mg XL up to 300 mg XL dosing today on 11/06/2024. No SI/HI.She continues to do well and with this stability has been referred by gynecology to continue regimen through . Continue lifestyle modifications to benefit mood. Reassess at follow-up visit. * Mingo Limon MD - 05/10/2025 2:09 PM EDTAssociated Problem(s): ADHD, predominantly inattentive type Inattention subtype with formal diagnosis on 11/17/2018, although she had reported similar diagnosis in her elementary years. Typical pattern of this diagnosis by review of her history, with Muir forms showing the same. No comorbid sleep difficulty. Final prescription had been methylphenidateER 36 mg dosing, but discontinued when she completed high school and she felt like she no longer required it. Comorbid anxiety and depressive symptoms, which see benefit of treatment of ADHD symptoms. Resumption on 07/18/2023 of methylphenidate ER 36 mg tablet, with continued good control. She continues to be pleased with how she is doing from ADHD treatment perspective no concerning side effects including no headache, stomach upset, personality suppression, on/off affect, appetite suppression. She is having some shorter duration of benefit, wearing off after about 5 or 6 hours. Such we added midday dosing with methylphenidate 5 mg as of 08/17/2024 with additional efficacy and duration. As such we will continue unchanged, refills provided for methylphenidate ER 36 mg number 30 tablets and methylphenidate 5 mg midday, number 30 tablets both today on 05/10/2025. She is currently butdoing well on regimen and with stability prefer to continue as per 3d specialist. Of note we had transiently held ADHD medicine in April 2024 to see if there is exacerbating palpitations but did not have any effect. She understands his controlled substance. We forgot to do a urine drug screen with her last blood work, plan to obtain at her next full follow-up visit. No concerns of inappropriate use. * Mingo Limon MD - 05/10/2025 2:07 PM EDTAssociated Problem(s): Acute cystitis without hematuria Currently 21 weeks , with onset of typical UTI type symptoms in the last 2 days with urinary frequency, urgency, incomplete voiding but not any burning. Nonetheless very suspicious for previous UTI pattern. No significant abdominal tenderness, a little crampiness couple days ago which is improved. No fevers or chills. Energy and appetite is otherwise good. No flank pain. Urinalysis with cl oudy appearance and 3+ leukocytes, consistent with UTI. In also go ahead send urine culture help guide any need for management change. Initiate Augmentin 875/125 twice daily x7 days as is recommended in . Push fluids. She also has ongoing regular follow-up with gynecology. Adviseconcerns. * Mingo Limon MD - 05/10/2025 1:15 PM EDT Images from the original note were not included. Office Note Name: Karmen Gu : 2000 Chief Complaint Urinary Tract Infection Subjective History of Present Illness: Karmen Gu is a 25 y.o. female who presents today for acute visit in large part related to urinary concerns and we also did address her ADHD and mood as she is a bit past due as there was some insurance issue. With urinary symptoms over the last couple days increased urinary frequency urgency sense of incomplete voiding but not burning. No flank pain, no suprapubic discomfort. No fevers or chills. Nonetheless very suspicious for previous UTI pattern. Related ADHD she continues on the medicine with good benefit, although she is not using the afternoon dose as often as she is not currently working. Mood ring she seems to have overall good stabilityand with her previous stability the 3d specialist prefers her to stay on her regimen for anxiety depression and ADHD. As such I will go ahead and refill her medicine today in that regard Review of Systems Objective Past Medical History: Diagnosis Date ADHD, predominantly [...] cancer Paternal Great-Grandmother Uterine cancer Maternal Great-Grandmother Vital Signs BP 106/74 (BP Location: Left arm, Patient Position: Sitting, Cuff Size: Adult) Pulse 109 Temp 98.2 ??F (36.8 ??C) (Temporal) Resp 20 Ht 147.3 cm (57.99 ) Wt 86.2 kg (190 lb) SpO2 99% BMI 39.72 kg/m?? Estimated body mass index is 39.72 kg/m?? as calculated from the following: Height as of this encounter: 147.3 cm (57.99 ). Weight as of this encounter: 86.2 kg (190 lb). Physical Exam Constitutional: General: She is not in acute distress. Appearance: Normal appearance. She is not ill-appearing, toxic-appearing or diaphoretic. HENT: Right Ear: Tympanic membrane, ear canal and external ear normal. Left Ear: Tympanic membrane, ear canal and external ear normal. Nose: Nose normal. No rhinorrhea. Mouth/Throat: Mouth: Mucous membranes are moist. Pharynx: Oropharynx is clear. No oropharyngeal exudate or posterior oropharyngeal erythema. Cardiovascular: Rate and Rhythm: Normal rate and regular rhythm. Pulses: Normal pulses. Heart sounds: Normal heart sounds. No murmur heard. No friction rub. No gallop. Pulmonary: Effort: Pulmonary effort is normal. No respiratory distress. Breath sounds: Normal breath sounds. No stridor. No wheezing. Abdominal: General: Abdomen is flat. Bowel sounds are normal. There is no distension. Palpations: Abdomen is soft. There is no mass. Tenderness: There is abdominal tenderness. There is no right CVA tenderness, left CVA tenderness, guarding or rebound. Hernia: No hernia is present. Comments: Gravid abdomen, with mild tenderness to deep palpation suprapubic region but negative rebound and guarding Musculoskeletal: Cervical back: Neck supple. No tenderness. Right lower leg: Edema present. Left lower leg: Edema present. Comments: Trace lower extremity edema bilaterally consistent with Lymphadenopathy: Cervical: No cervical adenopathy. Skin: General: Skin is warm and dry. Neurological: General: No focal deficit present. Mental Status: She is alert and oriented to person, place, and time. Mental status is at baseline. Psychiatric: Mood and Affect: Mood normal. Behavior: Behavior normal. Thought Content: Thought content normal. POCT Results (if applicable): Results for orders placed or performed in visit on 05/10/25 POC Urinalysis Dipstick Collection Time: 05/10/25 1:38 PM Specimen: Urine Result Value Ref Range Color Dark Yellow Yellow, Straw, Dark Yellow, Char Clarity, UA Cloudy (A) Clear Glucose, UA Negative Negative mg/dL Bilirubin Negative Negative Ketones, UA Negative Negative Specific [place] 1.010 1.005 - 1.030 Blood, UA Negative Negative pH, Urine 8.0 5.0 - 8.0 Protein, POC Negative Negative mg/dL Urobilinogen, UA Normal Normal, 0.2 E.U./dL Leukocytes Large (3+) (A) Negative Nitrite, UA Negative Negative Assessment and Plan Diagnoses and all orders for this visit: 1. Acute cystitis without hematuria (Primary) Assessment & Plan: Currently 21 weeks , with onset of typical UTI type symptoms in the last 2 days with urinary frequency, urgency, incomplete voiding but not any burning. Nonetheless very suspicious for previous UTI pattern. No significant abdominal tenderness, a little crampiness couple days ago which is improved. No fevers or chills. Energy and appetite is otherwise good. No flank pain. Urinalysis with cl oudy appearance and 3+ leukocytes, consistent with UTI. In also go ahead send urine culture help guide any need for management change. Initiate Augmentin 875/125 twice daily x7 days as is recommended in . Push fluids. She also has ongoing regular follow-up with gynecology. Adviseconcerns. Orders: - POC Urinalysis Dipstick - Urine Culture - Urine, Urine, Clean Catch; Future - amoxicillin-clavulanate (AUGMENTIN) 875-125 MG per tablet; Take 1 tablet by mouth 2 (Two) Times aDay. Dispense: 14 tablet; Refill: 0 - Urine Culture - Urine, Urine, Clean Catch 2. ADHD, predominantly inattentive type Assessment & Plan: Inattention subtype with formal diagnosis on 11/17/2018, although she had reported similar diagnosis in her elementary years. Typical pattern of this diagnosis by review of her history, with Muir forms showing the same. No comorbid sleep difficulty. Final prescription had been methylphenidateER 36 mg dosing, but discontinued when she completed high school and she felt like she no longer required it. Comorbid anxiety and depressive symptoms, which see benefit of treatment of ADHD symptoms. Resumption on 07/18/2023 of methylphenidate ER 36 mg tablet, with continued good control. She continues to be pleased with how she is doing from ADHD treatment perspective no concerning side effects including no headache, stomach upset, personality suppression, on/off affect, appetite suppression. She is having some shorter duration of benefit, wearing off after about 5 or 6 hours. Such we added midday dosing with methylphenidate 5 mg as of 08/17/2024 with additional efficacy and duration. As such we will continue unchanged, refills provided for methylphenidate ER 36 mg number 30 tablets and methylphenidate 5 mg midday, number 30 tablets both today on 05/10/2025. She is currently butdoing well on regimen and with stability prefer to continue as per 3d specialist. Of note we had transiently held ADHD medicine in April 2024 to see if there is exacerbating palpitations but did not have any effect. She understands his controlled substance. We forgot to do a urine drug screen with her last blood work, plan to obtain at her next full follow-up visit. No concerns of inappropriate use. 3. Anxiety and depression Assessment & Plan: Initially discussed in detail 08/26/2020 with initiation of buspirone 7.5 mg twice daily and fluoxetine 20 mg daily, as her mother had done well nose medicines prior. She continued a good response medicine that as a fall 2020, resuming again 03/02/2022 with fluoxetine 20 mg daily, buspirone 7.5 mg twice daily, and as of April 2022 with some breakthrough stressors, we switched to Lexapro titrated to 20 mg daily, and buspirone to 15 mg twice daily, with benefit. She was generally doing well but untilthe end of her in May 2023, where she had a premature requiring NICU stay with understandably increased stressors, as such we added Wellbutrin 150 mg XL daily to regimen Lexapro andbuspirone, and increased Wellbutrin 150 mg XL up to 300 mg XL dosing today on 11/06/2024. No SI/HI.She continues to do well and with this stability has been referred by gynecology to continue regimen through . Continue lifestyle modifications to benefit mood. Reassess at follow-up visit. Vaccine Counseling: Follow Up Return in about 3 months (around 08/10/2025) for Next scheduled follow up. Mingo Limon MD documented in this encounter Plan of Treatment Upcoming Encounters Date Type Department Care Team (Late st Contact Info) Description 07/01/2025 11:45 AM EDT Appointment [facility] ED [address] [place] [address] 07/26/2025 7:30 AM EDT Office Visit [facility] MATERNAL MEDICINE [address] [place] [address] 07/26/2025 7:30 AM EDT Appointment [facility] PER DI[facility] [address] [place] [address] 08/09/2025 10:00 AM EDT Office Visit [facility] CARDIOLOGY [address] [place] [address] Franchesca Sullivan, SECTION LEADER SCREEN PRINTING [address] [place] [address] [place] [address] 08/19/2025 8:45 AM EDT Office Visit [facility] PRIMARY [facility]ARE [address] [place] [id number] Mingo Limon MD [address] [place] [address] [place] [id number] documented as of this encounter Procedures Procedure Name Priority Date/Time Associated Diagnosis Comments URINE CULTURE Routine 05/10/2025 1:49 PM EDT Acute cystitis without hematuria POCT URINALYSIS DIPSTICK, MANUAL Routine 05/10/2025 1:38 PM EDT Acute cystitis without hematuria documented in this encounter Results * Urine Culture - Urine, Urine, Clean Catch (05/10/2025 1:49 PM EDT) Urine Culture Final report [facility] Result 1 Comment [facility] Comment: Mixed urogenital biju 10,000-25,000 colony forming units per mL Urine Urine specimen obtained by clean catch procedure / Unknown 05/10/2025 1:49 PM EDT 05/10/2025 Comment:Urine Release to [facility] (AMBULATORY) - 05/12/2025 6:37 AM EDT Performed at: - Lab[address] [id number] Quality Assurance Auditor: Dagoberto Campbell PhD, Phone: [phone] us Mingo Limon MD MICROBIOLOGY - GENERAL ORDERABLE S Final Result [facility] (AMBULATORY) [address] [place] [address], [facility] [address] [place] [address], * (ABNORMAL) POC Urinalysis Dipstick (05/10/2025 1:38 PM EDT) Color Dark Yellow Yellow, Straw, Dark Yellow, Char [facility] Clarity, UA Cloudy(A) Clear [facility] Glucose, UA Negative Negative mg/dL [facility] Bilirubin Negative Negative [facility] Ketones, UA Negative Negative [facility] Specific [place] 1.010 1.005 - 1.030 [facility] Blood, UA Negative Negative [facility] pH, Urine 8.0 5.0 - 8.0 [facility] Protein, POC Negative Negative mg/dL [facility] Urobilinogen, UA Normal Normal, 0.2 E.U./dL [facility] Leukocytes Large (3+)(A) Negative [facility] Nitrite, UA Negative Negative [facility] Urine 05/10/2025 1:38 PM EDT us Mingo Limon MD POINT OF CARE TEST ORDERABLES Fi nal Result [facility]
[address] [place] [address], documented in this encounter Visit Diagnoses Diagnosis Acute cystitis without hematuria- Primary ADHD, predominantly inattentive type Attention deficit disorder without mention of hyperactivity Anxiety and depression documented in this encounter Care Teams Machine Operations Supervisor Relationship Specialty Start Date End Date Mingo Limon MD [address] [place] [address] [place] [address] PCP - General Internal Medicine 07/30/22 documented as of this encounter
--- OUTSIDE RECORDS SUMMARY | 2025-05-23 10:06 | XMS_ITS | Encounter Summary ---
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, antepartum History of delivery, currently Tachycardia History of gestational diabetes in prior , currently , unspecified gestational age Encounter for repeat ultrasound of pyelectasis, antepartum, not applicable or unspecified fetus Procedures [facility] Milton Puentes MD [facility] [address] [address] Phone: tel: fax: [facility] [address] [place] [address] Phone: tel: Referral ID Status Reason Start Date Expiration Date Visits Re quested Visits Authorized [id number] Closed 05/02/2025 08/01/2026 1 1 Reason for Visit * Diagnostic Imaging (Routine) - Closed Specialty Diagnoses / Procedures Referred By Hansle mendez Referred To Contact Radiology Diagnoses 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 Milton Puentes MD [address] [place] [address] [address] Phone: tel: fax: [facility] [address] [place] [address] Phone: tel: Referral ID Status Reason Start Date Expiration Date Visits Re quested Visits Authorized [id number] Closed 05/02/2025 08/01/2026 1 1 Encounter Details Date Type Department Care Team (Latest Contact Info) Description 05/23/2025 10:06 AM EDT - 05/23/2025 11:59 PM EDT Hospital Encounter [facility] [address] [place] [id number] Milton Puentes MD [address] [place] [id number] 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 18 g 2 11/06/2024 Allergy Relief 10 MG tabletIndications:S easonal allergic rhinitis due to pollen Take 1 tablet by mouth Daily. 30 tablet 3 07/31/2024 budesonide-formoter ol (Symbicort) 160-4.5 MCG/ACT inhalerIndications: Mild intermittent asthma with acute exacerbation Inhale 2 puffs Every 4 (Four) Hours As Needed (Asthma). Rinse mouth with water after each use 10.2 g 1 12/11/2024 escitalopram (LEXAPRO) 20 MG tabletIndications:A nxiety and depression Take 1 tablet by mouth Daily. 90 tablet 1 04/09/2025 fluticasone (FLONASE) 50 MCG/ACT nasal sprayIndications:Se asonal allergic rhinitis due to pollen 2 sprays into the nostril(s) as directed by provider Daily. 15.8 mL 3 03/01/2024 labetalol (NORMODYNE) 200 MG tabletIndications:P alpitations Take 1 tablet by mouth 2 (Two) Times a Day. 60 tablet 6 05/20/2025 montelukast (Singulair) 10 MG tabletIndications:S easonal allergic rhinitis due to pollen Take 1 tablet by mouth Every Night. 30 tablet 3 03/01/2024 Vit-Fe Fumarate-FA ( vitamin 27-0.8) 27-0.8 MG tablet tablet Take 1 tablet by mouth Daily. amoxicillin-clavula moises (AUGMENTIN) 875-125 MG per tabletIndications:A cute cystitis without hematuria Take 1 tablet by mouth 2 (Two) Times a Day. 14 tablet 05/10/2025 5 buPROPion XL (WELLBUTRIN XL) 300 MG 24 hr tabletIndications:A nxiety and depression Take 1 tablet by mouth Daily. 30 tablet 2 04/09/2025 5 busPIRone (BUSPAR) 15 MG tabletIndications:A nxiety and depression Take 1 tablet by mouth 2 (Two) Times a Day. 180 tablet 1 11/06/2024 5 methylphenidate (RITALIN) 5 MG tabletIndications:A DHD, predominantly inattentive type Take 1 tablet by mouth Daily With Lunch. 30 tablet 04/09/2025 5 methylphenidate 36 MG CR tabletIndications:A DHD, predominantly inattentive type Take 1 tablet by mouth Every Morning 30 tablet 04/09/2025 5 documented as of this encounter Plan of Treatment Upcoming Encounters Date Type Department Care Team (Late st Contact Info) Description 07/01/2025 11:45 AM EDT Appointment [facility] [address] [place] [address] 07/26/2025 7:30 AM EDT Office Visit [facility] MATERNAL MEDICINE [address] [place] [address] 07/26/2025 7:30 AM EDT Appointment [facility] [address] [place] [address] 08/09/2025 10:00 AM EDT Office Visit [facility] CARDIOLOGY [address] [address] Franchesca Sullivan W, CONTINUOUS ABSORPTION PROCESS OPERATOR [address] [place] [address] [place] [address] 08/19/2025 8:45 AM EDT Office Visit [facility] PRIMARY CARE [address] [address] Mingo Limon MD [address] [address] documented as of this encounter Procedures Procedure Name Priority Date/Time Associated Diagnosis Comments [facility] Routine 05/23/2025 11:41 AM EDT 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, antepartum History of delivery, currently Tachycardia History of gestational diabetes in prior , currently , unspecified gestational age Encounter for repeat ultrasound of pyelectasis, antepartum, not applicable or unspecified fetus documented in this encounter Results * [facility] (05/23/2025 11:41 AM EDT) Anatomical Region Laterality Modality Ultrasound 05/23/2025 10:5 2 AM EDT Narrative 05/23/2025 11:50 AM EDT PAT NAME: KARMEN GU MED REC#: [id number] DA: [id number] PAT GEND: F PAT TYPE: O EXAM RO: [id number] REF PHYS [facility] PUENTES Comparison Studies There are no relevant prior studies to which this study is being compared Patient Status Outpatient Indication ======== Concern for bilateral UTD. Bicornuate uterus. Previous PROM/PTD @32 wks Maternal Assessment Height 146 cm Height (ft) 4 ft Height (in) 9 in Weight 88 kg Weight (lb) 193 lb BMI 41.07 kg/m Method ======= Transabdominal ultrasound examination. View: Limited by patient body habitus ========= Rasmussen . Number of fetuses: 1 Dating ====== Method of dating: based on stated CHANTE GA by prior assessment 23 w + 1 d CHANTE by prior assessment: 09/18/2025 Ultrasound examination on: 05/23/2025 GA by U/S based upon: AC, BPD, Femur, HC GA by U/S 23 w + 0 d CHANTE by U/S: 09/19/2025 Assigned: based on stated CHANTE, selected on 05/23/2025 Assigned GA 23 w + 1 d Assigned CHANTE: 09/18/2025 length 280 d Biometry Standard BPD 53.0 mm 22w 1d 12% Hadlock OFD 77.9 mm 25w 3d 98% Yocasta HC 212.4 mm 23w 2d 41% Hadlock Cerebellum tr 25.7 mm 23w 1d 82% Hill AC 197.3 mm 24w 3d 80% Hadlock Femur 38.4 mm 22w 2d 15% Hadlock Humerus 40.0 mm 24w 2d 76% Yocasta HC / AC 1.08 EFW 591 g 23w 2d 54% Hadlock EFW (lb) 1 lb EFW (oz) 5 oz EFW by: Hadlock ([id number]-XD-JQ-FL) Extended Tibia 34.7 mm 23w 0d 40% Yocasta Fibula 33.3 mm 22w 1d 32% Yocasta Radius 33.5 mm 23w 5d 56% Yocasta Ulna 36.5 mm 24w 3d 69% Yocasta Cav. septi pel. tr 4.4 mm Clerk Entry Level 3.4 mm CM 7.8 mm 94% Nicolaides Nasal bone 8.8 mm Rt Renal pelvis ap 4.3 mm Lt Renal pelvis ap 3.2 mm Head / Face / Neck Cephalic index 0.68 <1% Nicolaides Extremities / Bony Struc FL / BPD 0.72 FL / HC 0.18 FL / AC 0.19 Other Structures FHR 141 bpm General Evaluation Cardiac activity present. FHR 141 bpm. movements present. Presentation cephalic. Placenta Placental site: anterior, high. Umbilical cord Cord vessels: 3 vessel cord. Insertion site: placental insertion: normal. Amniotic fluid Amount of AF: normal. MVP 4.2 cm. Anatomy Cranium: Appears normal Midline falx: Appears normal Cavum septi pellucidi: Appears normal Cerebellum: Appears normal Cisterna magna: Appears normal Head / Neck Rt lateral ventricle: Appears normal Lt lateral ventricle: Appears normal Rt choroid plexus: Appears normal Lt choroid plexus: Appears normal Vermis: Appears normal Neck: Appears normal Nuchal fold: Appears normal Lips: Appear normal Profile: Appears normal Nose: Appears normal Face Nose: Nasal bone present Palate: Appears normal Orbits: Appears normal Lens: Normal 4-chamber view: Appears normal RVOT view: Appears normal LVOT view: Appears normal Heart / Thorax Aortic arch view: Appears normal Ductal arch view: Appears normal SVC: normal IVC: normal 3-vessel view: Appears normal 0-cjodie-kqgacdn view: Appears normal Rt lung: Appears normal Lt lung: normal Diaphragm: Appears normal Diaphragm: Intact Cord insertion: Appears normal Stomach: Appears normal Bladder: Appears normal Abdomen Rt kidney: ABNORMAL Rt kidney: The AP diameter of the right renal pelvis measures 4.3 mm Lt kidney: normal Lt kidney: The AP diameter of the left renal pelvis measures 3.2 mm Liver: normal Small bowel: normal Large bowel: normal Cervical spine: Appears normal Thoracic spine: Appears normal Lumbar spine: Appears normal Sacral spine: Appears normal Arms: Appears normal Legs: Appears normal Rt upper arm: Appears normal Rt forearm: Appears normal Rt hand: Appears normal Lt upper arm: Appears normal Lt forearm: Appears normal Lt hand: Appears normal Rt upper leg: Appears normal Rt lower leg: Appears normal Rt foot: Appears normal Lt upper leg: Appears normal Lt lower leg: Appears normal Lt foot: Appears normal Gender: male Wants to know gender: yes Maternal Structures Uterus / Cervix Description of uterine malformations: bicornuate uterus Cervix: Visualized Approach: Transabdominal Cervical length 48.0 mm Ovaries / Tubes / Adnexa Rt ovary: Visualized Lt ovary: Visualized Impression Today's exam reveals a SIUP with biometry consistent with dates. Mild unilateral renal pelvic dilation. Otherwise anatomic survey appears normal. Fluid is normal. The placenta is anterior, high. The TA cervical length appears adequate Recommendation Follow up 32 weeks GA for growth Coding ======= Description: 01595-91 Detailed Structural Steel Trades Worker: Jennifer Ruby RDMS Physician: Sarah George MD, FACOG Electronically signed by: Sarah George MD, FACOG at: 11:50 Procedure Note Sarah George MD - 05/23/2025 PAT NAME: KARMEN GU MED REC#: [id number] DA: 2000 PAT GEND: F PAT TYPE: O EXAM RO: [id number] REF PHYS [facility] Comparison Studies There are no relevant prior studies to which this study is beingcompared Patient Status Outpatient Indication ======== Concern for bilateral UTD. Bicornuate uterus. Previous PROM/PTD @32 wks Maternal Assessment Uxlvfj046 cm Height (ft)4 ft Height (in)9 in Ssxzdb11 kg Weight (lb)193 lb BMI41.07 kg/m Method ======= Transabdominal ultrasound examination. View: Limited by patient bodyhabitus ========= Rasmussen . Number of fetuses: 1 Dating ====== Method of dating:based on stated CHANTE GA by prior mshgiroxgd64 w + 1 d CHANTE by prior assessment:09/18/2025 Ultrasound examination on:05/23/2025 GA by U/S based upon:AC, BPD, Femur, HC GA by U/S23 w + 0 d CHANTE by U/S:09/19/2025 Assigned:based on stated CHANTE, selected on 05/23/2025 Assigned GA23 w + 1 d Assigned CHANTE:09/18/2025 neqbxq959 d Biometry Standard BPD53.0 mm 22w 1d 12% Hadlock OFD77.9 mm 25w 3d 98% Yocasta HC212.4 mm 23w 2d 41% Hadlock Cerebellum tr25.7 mm 23w 1d 82% Hill AC197.3 mm 24w 3d 80% Hadlock Femur38.4 mm 22w 2d 15% Hadlock Pazcqmg41.0 mm 24w 2d 76% Yocasta HC / AC1.08 MTI863 g 23w 2d 54% Hadlock EFW (lb)1 lb EFW (oz)5 oz EFW by:Hadlock (ZRD-ZO-XL-FL) Extended Tibia34.7 mm 23w 0d 40% Yocasta Uzgltd30.3 mm 22w 1d 32% Yocasta Tokqro83.5 mm 23w 5d 56% Yocasta Ulna36.5 mm 24w 3d 69% Yocasta Cav. septi pel. tr4.4 mm Vp3.4 mm CM7.8 mm 94% Nicolaides Nasal bone8.8 mm Rt Renal pelvis ap4.3 mm Lt Renal pelvis ap3.2 mm Head / Face / Neck Cephalic index0.68 <1% Nicolaides Extremities / Bony Struc FL / BPD0.72 FL / HC0.18 FL / AC0.19 Other Structures YUA129 bpm General Evaluation Cardiac activity present. FHR 141 bpm. movements present. Presentation cephalic. Placenta Placental site: anterior, high. Umbilical cord Cord vessels: 3 vessel cord. Insertion site: placentalinsertion: normal. Amniotic fluid Amount of AF: normal. MVP 4.2 cm. Anatomy Cranium:Appears normal Midline falx:Appears normal Cavum septi pellucidi:Appears normal Cerebellum:Appears normal Cisterna magna:Appears normal Head / Neck Rt lateral ventricle:Appears normal Lt lateral ventricle:Appears normal Rt choroid plexus:Appears normal Lt choroid plexus:Appears normal Vermis:Appears normal Neck:Appears normal Nuchal fold:Appears normal Lips:Appear normal Profile:Appears normal Nose:Appears normal Face Nose:Nasal bone present Palate:Appears normal Orbits:Appears normal Lens:Normal 4-chamber view:Appears normal RVOT view:Appears normal LVOT view:Appears normal Heart / Thorax Aortic arch view:Appears normal Ductal arch view:Appears normal SVC:normal IVC:normal 3-vessel view:Appears normal 0-onvhto-xevjpll view:Appears normal Rt lung:Appears normal Lt lung:normal Diaphragm:Appears normal Diaphragm:Intact Cord insertion:Appears normal Stomach:Appears normal Bladder:Appears normal Abdomen Rt kidney:ABNORMAL Rt kidney:The AP diameter of the right renal pelvis measures 4.3 mm Lt kidney:normal Lt kidney:The AP diameter of the left renal pelvis measures 3.2 mm Liver:normal Small bowel:normal Large bowel:normal Cervical spine:Appears normal Thoracic spine:Appears normal Lumbar spine:Appears normal Sacral spine:Appears normal Arms:Appears normal Legs:Appears normal Rt upper arm:Appears normal Rt forearm:Appears normal Rt hand:Appears normal Lt upper arm:Appears normal Lt forearm:Appears normal Lt hand:Appears normal Rt upper leg:Appears normal Rt lower leg:Appears normal Rt foot:Appears normal Lt upper leg:Appears normal Lt lower leg:Appears normal Lt foot:Appears normal Gender:male Wants to know gender:yes Maternal Structures Uterus / Cervix Description of uterine malformations:bicornuate uterus Cervix:Visualized Approach:Transabdominal Cervical vuomvs28.0 mm Ovaries / Tubes / Adnexa Rt ovary:Visualized Lt ovary:Visualized Impression Today's exam reveals a SIUP with biometry consistent with dates. Mildunilateral renal pelvic dilation. Otherwise anatomic survey appearsnormal. Fluid is normal. The placenta is anterior, high. 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
--- OUTSIDE RECORDS SUMMARY | 2025-05-23 10:30 | XMS_ITS | Encounter Summary ---
Author Organization [facility] Address [address] [place] [address] Care Team Providers Care Water Valve Mechanic Name Role Phone Mingo Limon MD Primary Care Provider [phone] Reason for Referral * Diagnostic Imaging (Routine) - Closed Specialty Diagnoses / Procedures Referred By Contac t Referred To Contact Radiology Diagnoses Bicornuate uterus Procedures [facility] Sarah George MD [address] [facility] [address] [place] [address] Phone: tel: fax: [facility] US PER DIAG CTR [address] [place] [address] Phone: tel: Referral ID Status Reason Start Date Expiration Date Visits Re quested Visits Authorized [id number] Closed 05/23/2025 08/22/2026 1 1 Reason for Visit * Reason Comments bicornuate uterus; hx PTD (31 wk); hx GD M; mat. tachycardia Encounter Details Date Type Department Care Team (Late st Contact Info) Description 05/23/2025 10:30 AM EDT Office Visit [facility] MATERNAL MEDICINE [address] [facility] [address] [place] [address] Sarah George MD [address] [facility] [address] [place] [address] Bicornuate uterus (Primary Dx) Social History Tobacco [...] under imaging tab of patient chart in [facility] (Viewpoint report). Sarah George MD documented in this encounter Plan of Treatment Upcoming Encounters Date Type Department Care Team (Late st Contact Info) Description 07/01/2025 11:45 AM EDT Appointment [facility]ETES ED [address] [facility] [address] [place] [address] 07/26/2025 7:30 AM EDT Office Visit [facility] MATERNAL MEDICINE [address] [facility] [address] [place] [address] 07/26/2025 7:30 AM EDT Appointment [facility] US PER DIAG CTR [address] [place] [address] 08/09/2025 10:00 AM EDT Office Visit [facility] CARDIOLOGY [address] [address] SeFranchesca he W, DISPERSION MIXER [address] [place] [address] 08/19/2025 8:45 AM EDT Office Visit [facility] PRIMARY CARE [address] [place] [address] Mingo Limon MD [address] [place] [address] [place] [address] Pending Results Name Type Priority Associated Diagnoses Date /Time [facility] Imaging Routine Bicornuate uterus 06/27/2025 11:29 AM EDT Scheduled Orders Name Type Priority Associated Diagnoses Orde r Schedule [facility] Imaging Routine Bicornuate uterus Expected: 07/18/2025, Expires: 05/23/2026 documented as of this encounter Visit Diagnoses Diagnosis Bicornuate uterus- Primary documented in this encounter Care Teams Water Valve Mechanic Relationship Specialty Start Date End Date Mingo Limon MD [address] [address] PCP - General Internal Medicine 07/30/22 documented as of this encounter
--- OUTSIDE RECORDS SUMMARY | 2025-06-13 13:00 | XMS_ITS | Encounter Summary ---
Author Organization [facility] Address [address] [place] [address] Care Team Providers Care Balance Wheel Screw Hole Driller Name Role Phone Mingo Limon MD Primary Care Provider Reason for Visit * Reason Comments Med Refill Encounter Details Date Type Department Care Team (Late st Contact Info) Description 06/13/2025 1:00 PM EDT Office Visit [facility] PRIMARY CARE [address] [place] [address] [place] [address] Mingo Limon MD [address] [place] [address] ADHD, predominantly inattentive type (Primary Dx); Anxiety [...] all of which were normal. Referred to [facility] cardiology who completed echo 06/14/2024 which [...] , and recent testing through [facility]vet Abraham cash analyst reveals what appears to be a failed 1 hour 2-hour and 3-hour glucose challenge test, as such it appears she is progressing to a similar pattern. No current medications atthis time but keep regular follow-up with cash analyst. Of note she had been placed in [...] diagnosis by review of her history, with [place] forms showing the same. No comorbid sleep [...] with stability prefer to continue as per cash analyst. Of note we had transiently held ADHD [...] no SI/HI and handling her stressors appropriately. Costing Analyst has recommendedher to continue on the regimen [...] diagnosis by review of her history, with [place] forms showing the same. No comorbid sleep [...] with stability prefer to continue as per cash analyst. Of note we had transiently held ADHD [...] , and recent testing through [facility] Abraham cash analyst reveals what appears to be a failed 1 hour 2-hour and 3-hour glucose challenge test, as such it appears she is progressing to a similar pattern. No current medications atthis time but keep regular follow-up with cash analyst. Of note she had been placed in [...] all of which were normal. Referred to [facility] cardiology who completed echo 06/14/2024 which [...] follow up, ADHD monitoring. Mingo Limon MD [facility] documented in this encounter Plan of Treatment Upcoming Encounters Date Type Department Care Team (Late st Contact Info) Description 07/01/2025 11:45 AM EDT Appointment [facility] DIABETES ED [address] [place] [address] 07/26/2025 7:30 AM EDT Office Visit [facility] MATERNAL MEDICINE [address] [place] [address] 07/26/2025 7:30 AM EDT Appointment [facility] US PER DIAG CTR [address] [place] [address] 08/09/2025 10:00 AM EDT Office Visit [facility] CARDIOLOGY [address] [place] [phone] Franchesca Sullivan, WATCH BAND ASSEMBLER [address] [place] [address] 08/19/2025 8:45 AM EDT Office Visit [facility] PRIMARY CARE [address] [place] [address] [place] [phone] Mingo Limon MD [address] [place] [address] [place] [address] documented as of this encounter Visit Diagnoses Diagnosis ADHD, predominantly inattentive type- Primary Attention deficit disorder without mention of hyperactivity Anxiety and depression Gestational diabetes mellitus (GDM) in second trimester controlled on oral hypoglycemic drug Mixed hyperlipidemia Palpitations documented in this encounter Care Teams Balance Wheel Screw Hole Driller Relationship Specialty Start Date End Date Mingo Limon MD [address] [place] [address] PCP - General Internal Medicine 07/30/22 documented as of this encounter
--- OUTSIDE RECORDS SUMMARY | 2025-06-24 12:49 | XMS_ITS | Encounter Summary ---
Author Organization [facility] Address [address] [place] [address] Care Team Providers Care Timber Rider Name Role Phone Mingo Limon MD Primary Care Provider [phone] Encounter Details Date Type Department Care Team (Late st Contact Info) Description 06/24/2025 12:49 PM EDT - 06/24/2025 11:59 PM EDT Hospital Encounter [facility] DIABETES ED [address] [place] [address] Juan Miguel Marie MD [address] [facility] [address] [place] [id number] Discharge Disposition: Home or Self Care Social [...] tablet orally at noon 30 tablet 05/27/2025 methylphenidate 36 MG CR tabletIndications:A DHD, predominantly inattentive type Take 1 tablet by mouth Every Morning 30 tablet 05/27/2025 montelukast (Singulair) 10 MG tabletIndications:S easonal allergic rhinitis due to pollen Take 1 tablet by mouth Every Night. 30 tablet 3 03/01/2024 Vit-Fe Fumarate-FA ( vitamin 27-0.8) 27-0.8 MG tablet tablet Take 1 tablet by mouth Daily. documented as of this encounter Consult Notes * Avelina Fierro RN - 06/24/2025 1:00 PM EDT Patient attended the scheduled 90 minute gestational diabetes education class. Please see media tabfor assessment and notes if you use EPIC. If you are not an EPIC user a copy of patient's assessment and notes will be sent per routine. Thank you. documented in this encounter Plan of Treatment Upcoming Encounters Date Type Department Care Team (Late st Contact Info) Description 07/01/2025 11:45 AM EDT Appointment [facility] DIABETES ED [address] [facility] [address] [place] [address] 07/26/2025 7:30 AM EDT Office Visit [facility] MATERNAL MEDICINE [address] [facility] [address] [place] [address] 07/26/2025 7:30 AM EDT Appointment [facility] US PER DIAG CTR [address] [place] [address] 08/09/2025 10:00 AM EDT Office Visit [facility] CARDIOLOGY [address] [place] [address] Franchesca Sullivan, GENERAL MANAGER ORACLE DATA CLOUD [address] [place] [address] [place] [address] 08/19/2025 8:45 AM EDT Office Visit [facility] PRIMARY CARE [address] [place] [address] Mingo Limon MD [address] [place] [address] [place] [address] documented as of this encounter Visit Diagnoses Not on filedocumented in this encounter Care Teams Timber Rider Relationship Specialty Start Date End Date Mingo Limon MD [address] [place] [address] PCP - General Internal Medicine 07/30/22 documented as of this encounter
--- OUTSIDE RECORDS SUMMARY | 2025-06-27 11:01 | XMS_ITS | Encounter Summary ---
Author Organization [facility] Address [address] [place] [address] Care Team Providers Care Fertilizer Processing Supervisor Name Role Phone Mingo Limon MD Primary Care Provider [phone] Reason for Referral * Diagnostic Imaging (Routine) - Closed Specialty Diagnoses / Procedures Referred By Arlethac t Referred To Contact Radiology Diagnoses Bicornuate uterus Procedures [facility] Diagnostic [place] Sarah George MD [address] [address] Phone: tel: fax: [facility] US PER DIAG CTR [address] [place] [address] Phone: tel: Referral ID Status Reason Start Date Expiration Date Visits Re quested Visits Authorized [id number] Closed 05/23/2025 08/22/2026 1 1 Reason for Visit * Diagnostic Imaging (Routine) - Closed Specialty Diagnoses / Procedures Referred By Contac t Referred To Contact Radiology Diagnoses Bicornuate uterus Procedures [facility] Diagnostic [place] Sarah George MD [address] [address] Phone: tel: fax: [facility] US PER DIAG CTR [address] [place] [address] Phone: tel: Referral ID Status Reason Start Date Expiration Date Visits Re quested Visits Authorized [id number] Closed 05/23/2025 08/22/2026 1 1 Encounter Details Date Type Department Care Team (Late st Contact Info) Description 06/27/2025 11:01 AM EDT - 06/27/2025 11:59 PM EDT Hospital Encounter [facility] PER DIAG CTR [address] [place] [address] Sarah George MD [address] [facility] [address] [address] [place] [address] Bicornuate uterus Discharge Disposition: Home [...] Info) Description 07/01/2025 11:45 AM EDT Appointment [facility] DIABETES ED [address] [place] [address] 07/26/2025 7:30 AM EDT Office Visit [facility]NAL MEDICINE [address] [facility] [address] [place] [address] 07/26/2025 7:30 AM EDT Appointment [facility] US PER DIAG CTR [address] [place] [address] 08/09/2025 10:00 AM EDT Office Visit [facility] CARDIOLOGY [address] [address] Franchesca Sullivan, ELECTRO MECHANICAL TECHNICIAN [address] [place] [address] [place] [address] 08/19/2025 8:45 AM EDT Office Visit [facility] PRIMARY CARE [address] [place] [address] Mingo Limon MD [address] [place] [address] [place] [address] Pending Results Name Type Priority Associated Diagnoses Date /Time [facility] Imaging Routine Bicornuate uterus 06/27/2025 11:29 AM EDT Scheduled Orders Name Type Priority Associated Diagnoses Orde r Schedule [facility] Imaging Routine Bicornuate uterus Once for 1 Occurrences starting 06/27/2025 until 06/27/2025 documented as of this encounter Visit Diagnoses Diagnosis Bicornuate uterus documented in this encounter Care Teams Fertilizer Processing Supervisor Relationship Specialty Start Date End Date Mingo Limon MD [address] [place] [address] PCP - General Internal Medicine 07/30/22 documented as of this encounter
--- OUTSIDE RECORDS SUMMARY | 2025-06-27 11:15 | XMS_ITS | Encounter Summary ---
Author Organization [facility] Address [address] [place] [address] Care Team Providers Care Care Navigator Name Role Phone Mingo Limon MD Primary Care Provider [phone] Reason for Visit * Reason Comments GDM, bicornate ut, hx 32 wk PTD, [place] Encounter Details Date Type Department Care Team (Late st Contact Info) Description 06/27/2025 11:15 AM EDT Office Visit [facility] MATERNAL MEDICINE [address] [address] Sarah George MD [address] [place] [address] Bicornuate uterus (Primary Dx); Diet controlled gestational [...] also with some lows. No clear pattern. documented in this encounter Plan of Treatment Upcoming Encounters Date Type Department Care Team (Late st Contact Info) Description 07/01/2025 11:45 AM EDT Appointment [facility] DIABETES ED [address] [facility] [address] [place] [address] 07/26/2025 7:30 AM EDT Office Visit [facility] MATERNAL MEDICINE [address] [facility] [address] [place] [address] 07/26/2025 7:30 AM EDT Appointment [facility] US PER DIAG [facility] [address] [facility] [place] [address] 08/09/2025 10:00 AM EDT Office Visit [facility] CARDIOLOGY [address] [address] Franchesca Sullivan, HUMAN RESOURCES SUPPORT SPECIALIST [address] [place] [address] [place] [address] 08/19/2025 8:45 AM EDT Office Visit [facility] PRIMARY CARE [address] [id number] Mingo Limon MD [address] [address] documented as of this encounter Visit Diagnoses Diagnosis Bicornuate uterus- Primary Diet controlled gestational diabetes mellitus (GDM) in third trimester documented in this encounter Care Teams Care Navigator Relationship Specialty Start Date End Date Mingo Limon MD [address] [id number] PCP - General Internal Medicine 07/30/22 documented as of this encounter
--- OUTSIDE RECORDS SUMMARY | 2025-07-01 09:01 | XMS_ITS | Encounter Summary ---
Author Organization [facility] Address [address] [place] [address] Care Team Providers Care Rock Crusher Name Role Phone Mingo Limon MD Primary Care Provider [phone] Encounter Details Date Type Department Care Team (Latest Contact Info) Description 06/27/2025 Travel Social History Tobacco Use Types Packs/Day [...] Info) Description 07/01/2025 11:45 AM EDT Appointment [facility] DIABETES ED [address] [facility] [address] [place] [address] 07/26/2025 7:30 AM EDT Office Visit [facility] MEDICAL [facility] MATERNAL MEDICINE [address] [facility] [address] [place] [address] 07/26/2025 7:30 AM EDT Appointment [facility] US PER DIAG CTR [address] [place] [address] 08/09/2025 10:00 AM EDT Office Visit [facility] CARDIOLOGY [address] [address] Franchesca Sullivan, COSMETICS SUPERVISOR [address] [place] [address] 08/19/2025 8:45 AM EDT Office Visit [facility] PRIMARY CARE [address] [place] [address] Mingo Limon MD [address] [place] [address] documented as of this encounter Visit Diagnoses Not on filedocumented in this encounter Care Teams Rock Crusher Relationship Specialty Start Date End Date Mingo Limon MD [address] [place] [address] PCP - General Internal Medicine 07/30/22 documented as of this encounter
--- OUTSIDE RECORDS SUMMARY | 2025-07-01 09:01 | XMS_ITS | Encounter Summary ---
Author Organization [facility] Address [address] [place] [address] Care Team Providers Care Glass Forming Engineer Name Role Phone Mingo Limon MD Primary Care Provider Encounter Details Date Type Department Care Team (Late st Contact Info) Description 06/27/2025 Documentation [facility] MATERNAL MEDICINE [address] [facility] [address] [place] [address] Vira Paniagua, RN Social History Tobacco Use Types Packs/Day Years [...] on file documented as of this encounter Progress Notes * Vira Paniagua RN - 06/27/2025 12:01 PM EDT Spoke with patient in person. Diabetic folder given and reviewed. Patient is already wearing a Dexom sensor. Attempted to place clinic code but patient unable to sign in to her vitaliy while in the office. G7 vitaliy instructions given and reviewed with patient. Discussed how to enter in our clinic code, clinic code given, Hoe to do calibrations and enter, how to enter in insulin and medications if needed. Reviewed our to enter in meal description or how to take a picture in vitaliy of meal. Stressed the importance if sensor should fail to contact Dexcom technical support (number provided) and that pharmacy's do not replace sensors. Reviewed fold with office hours, how to contact, how to send in blood sugar log and when to keep if dexcom sensors fail. Reviewed diet and the importance of protein with meals and snacks and how to count carbs. Patient voiced understanding and demonstrated how to use vitaliy. Patient is to notify through [email or web address] once she has entered in our clinic code and is agreeable to keep blood sugar log until she has received confirmation from us that we can see her data. Vira Paniagua RN documented in this encounter Plan of Treatment Upcoming Encounters Date Type Department Care Team (Late st Contact Info) Description 07/01/2025 11:45 AM EDT Appointment [facility] DI[facility]ETES ED [address] [facility] [address] [place] [address] 07/26/2025 7:30 AM EDT Office Visit [facility] MATERNAL MEDICINE [address] [facility] [address] [place] [address] 07/26/2025 7:30 AM EDT Appointment [facility] US PER DIAG CTR [address] [place] [address] 08/09/2025 10:00 AM EDT Office Visit [facility] CARDIOLOGY [address] [place] [address] Franchesca Sullivan, REGIONAL EDUCATION MANAGER [address] [place] [address] [place] [address] 08/19/2025 8:45 AM EDT Office Visit [facility] PRIMARY CARE [address] [phone] Mingo Limon MD [address] [address] documented as of this encounter Visit Diagnoses Not on filedocumented in this encounter Care Teams Glass Forming Engineer Relationship Specialty Start Date End Date Mingo Limon MD [address] [address] PCP - General Internal Medicine 07/30/22 documented as of this encounter
--- OUTSIDE RECORDS SUMMARY | 2025-07-01 09:02 | XMS_ITS | Clinical Summary ---
Author Organization [facility] Address [address] [place] [address] Care Team Providers Care Fur Joiner Name Role Phone Mingo Limon MD Primary [...] Every Night. 30 tablet 3 024 Active Additional Information Patient taking differently:10 mg OralAs Needed, Reported on 06/27/2025 Allergy Relief 10 MG tabletIndication s:Seasonal allergic rhinitis due to pollen Take 1 tablet by mouth Daily. 30 tablet 3 024 Active Additional Information Patient taking differently:10 mg OralAs Needed, Patient reports Claritin, Reported on 06/27/2025 Vit-Fe Fumarate-FA ( vitamin 27-0.8) 27-0.8 MG [...] mouth Daily. 90 tablet 1 025 Active Continuous Glucose Sensor (Dexcom G7 Sensor) [facility] [place] As directed EVERY 10 DAYS 025 Active busPIRone (BUSPAR) 15 MG tabletIndication s:Anxiety and depression Take 1 tablet by mouth 2 (Two) Times a Day. 180 tablet 1 024 2024 Discontinued(R eorder) buPROPion XL (WELLBUTRIN XL) 300 MG 24 hr tabletIndication s:Anxiety and depression Take 1 tablet by mouth Daily. 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 Referred to [facility] cardiology who completed echo 06/14/2024 [...] need to switch to labetalol per her VAULT MANAGER Dr. Kimbrough at [facility]. Patient has been instructed to start [...] all of which were normal. Referred to [facility] cardiology who completed echo 06/14/2024 which was normal and had nonconcerning Holter monitor. Initial metoprolol 25 mg ER daily, switch to propranolol 20 mg in the potential she could get in the future this would prefer medicine. Overall she is clinically feeling better on regimen medicine. Keep follow-up with [facility] cardiology. Assessment & Plan (06/14/2024 4:33 PM [...] sensation with sitting to standing, with equivocal Dupree-Hallpike maneuver which has since resolved. 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 [...] indication for treatment UTI, advise any worsening. Diet controlled gestational diabetes mellitus (GDM) in third trimester 04/13/2023 Assessment & Plan (06/27/2025 1:14 PM EDT): Recently diagnosed. Has seen Diabetic Education. Has Dexcom. Reports elevated fastings though also with some lows. No clear pattern. Assessment & Plan (06/13/2025 1:34 PM EDT): Previous diagnosis of gestational diabetes with her 2022 , and recent testing through Dr. Kimbrough [place] metal finisher reveals what appears to be a failed 1 hour 2-hour and 3-hour glucose challenge test, as such it appears she is progressing to a similar pattern. No current medications at this time but keep regular follow-up with metal finisher. 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 Santos, metal finisher and [place]. Plan in place with potential complications of transition to [facility] if she delivers earlier has [...] diabetes mellitus. Nonetheless keep regular follow-up with OB/director school of nursing who has placed her on glipizide 5 [...] diagnosis by review of her history, with [employer] forms showing the same. No comorbid sleep [...] with stability prefer to continue as per metal finisher. Of note we had transiently held ADHD [...] diagnosis by review of her history, with [employer] forms showing the same. No comorbid sleep [...] with stability prefer to continue as per metal finisher. Of note we had transiently held ADHD [...] diagnosis by review of her history, with [employer] forms showing the same. No comorbid sleep [...] diagnosis by review of her history, with [employer] forms showing the same. No comorbid sleep [...] diagnosis by review of her history, with [employer] forms showing the same. No comorbid sleep [...] diagnosis by review of her history, with [employer] forms showing the same. No comorbid sleep [...] diagnosis by review of her history, with [employer] forms showing the same. 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 Reinforced healthy diet, good activity level is [...] Encounters Date Type Department Care Team Description 06/27/2025 11:15 AM EDT Office Visit [facility] [address] [facility] [address] [place] [phone] Sarah George MD Bicornuate uterus (Primary Dx); Diet controlled gestational diabetes mellitus (GDM) in third trimester 06/27/2025 11:01 AM EDT - 06/27/2025 11:59 PM EDT Hospital Encounter [facility] US PER DIAG CTR [address] [place] [address] Sarah George MD Bicornuate uterus Discharge Disposition: Home or Self Care 06/27/2025 Documentation [facility] MATERNAL MEDICINE [address] [facility] [address] [place] [address] Vira Paniagua RN 06/27/2025 Travel 06/24/2025 12:49 PM EDT - 06/24/2025 11:59 PM EDT Hospital Encounter [facility] DIABETES ED [address] [facility] [address] [place] [address] Juan Miguel Marie MD Discharge Disposition: Home or Self Care 06/24/2025 Travel 06/13/2025 1:00 PM EDT Office Visit [facility] PRIMARY CARE [address] [place] [address] [place] [address] Mingo Limon MD ADHD, predominantly inattentive type (Primary Dx); Anxiety and depression; Gestational diabetes mellitus (GDM) in second trimester controlled on oral hypoglycemic drug; Mixed hyperlipidemia; Palpitations 06/13/2025 Travel 05/27/2025 Refill [facility] PRIMARY CARE [address] [place] [address] [place] [address] Mingo Limon MD ADHD, predominantly inattentive type 05/23/2025 10:30 AM EDT Office Visit [facility]NAL MEDICINE [address] [facility] [address] [place] [address] Sarah George MD Bicornuate uterus (Primary Dx) 05/23/2025 10:06 AM EDT - 05/23/2025 11:59 PM EDT Hospital Encounter [facility] US PER DIAG CTR [address] [place] [address] Milton Puentes MD 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, antepartum; History of delivery, currently ; Tachycardia; History of gestational diabetes in prior , currently ; , unspecified gestational age; Encounter for repeat ultrasound of pyelectasis, antepartum, not applicable or unspecified fetus Discharge Disposition: Home or Self Care 05/23/2025 Travel 05/16/2025 Telephone [facility] CARDIOLOGY [address] [place] [address] Sarah Hare, NIRAV 05/13/2025 Results Follow-Up [facility] PRIMARY [address] [place] [address] Mingo Limon MD 05/10/2025 1:15 PM EDT Office Visit [facility] PRIMARY [address] [place] [address] Mingo Limon MD Acute cystitis without hematuria (Primary Dx); ADHD, predominantly inattentive type; Anxiety and depression 05/10/2025 12:30 PM EDT Office Visit [facility] CARDIOLOGY [address] [place] [address] Sarah Hare, SUPERVISOR NURSE Palpitations (Primary Dx); Tachycardia 05/10/2025 Travel 05/08/2025 Telephone [facility] CARDIOLOGY [address] [place] [address] Sarah Hare, SUPERVISOR NURSE SARAH HARE-APOINTMENT 04/09/2025 Refill [facility] PRIMARY CARE [address] [place] [address] [place] [address] Mingo Limon MD Anxiety and depression; ADHD, predominantly inattentive type 04/04/2025 Refill [facility] PRIMARY CARE [address] [place] [address] [place] [address] Mingo Limon MD ADHD, predominantly inattentive type 04/04/2025 Refill [facility] PRIMARY CARE [address] [place] [address] [place] [address] Mingo Limon MD ADHD, predominantly inattentive type from Last 3 Months Immunizations Immunization Administration [...] 87/55 06/27/2025 11:11 AM EDT 10 Pulse 102 06/13/2025 1:04 PM EDT Temperature 36.6 C (97.8 F) 06/13/2025 12:55 PM EDT Respiratory Rate 20 05/10/2025 1:13 PM EDT Oxygen Saturation 98% 06/13/2025 12:55 PM EDT Inhaled Oxygen Concentration - - Weight 85.5 kg (188 lb 6.4 oz) 06/27/2025 11:11 AM EDT Height 147.3 cm (4' 9.99 ) 06/13/2025 12:55 PM E DT Body Mass Index 39.39 06/13/2025 12:55 PM EDT Plan of Treatment Upcoming Encounters Date Type Department Care Team (Late st Contact Info) Description 07/01/2025 11:45 AM EDT Appointment [facility] DIABETES ED [address] [facility] [address] [place] [address] 07/26/2025 7:30 AM EDT Office Visit [facility] MATERNAL MEDICINE [address] [facility] [address] [place] [address] 07/26/2025 7:30 AM EDT Appointment [facility] US PER DIAG CTR [address] [place] [address] 08/09/2025 10:00 AM EDT Office Visit [facility] CARDIOLOGY [address] [place] [address] Sarah Hare, SUPERVISOR NURSE [address] [place] [address] [place] [address] 08/19/2025 8:45 AM EDT Office Visit [facility] PRIMARY CARE [address] [place] [address] Mingo Limon MD [address] [place] [address] Health Maintenance Due Date Last Done Comments MENINGOCOCCAL B VACCINE (1 o f 2 - Standard) 2018 HEPATITIS C SCREENING 07/30/2022 COVID-19 Vaccine (4 - 2023-2 5 season) 2024 10/12/2021, 04/01/2021, [...] Date/Time Associated Diagnosis Comments SCANNED - LABS 06/16/2025 SCANNED - IMAGING 06/16/2025 SCANNED - LABS 06/10/2025 [facility] Routine 05/23/2025 11:41 AM [...] ORDERABLE S Final Result * LABS SCANNED (06/16/2025) Only the most recent of2 resultswithin the time period is included. us Mingo Limon MD LAB BLOOD ORDERABLES Final Resul t * [facility] (05/23/2025 11:41 AM EDT) Anatomical Region Laterality Modality Ultrasound 05/23/2025 10:5 2 AM EDT Narrative 05/23/2025 11:50 AM EDT PAT NAME: KARMEN BRAVO MED REC#: [id number] DA: 2000 PAT GEND: F PAT TYPE: O EXAM RO: [id number] REF PHYS [facility]ENTES Comparison Studies There [...] EFW (oz) 5 oz EFW by: Hadlock ([id number]) Extended Tibia 34.7 mm 23w 0d 40% Yocasta Fibula 33.3 mm 22w 1d 32% Yocasta Radius 33.5 mm 23w 5d 56% Yocasta Ulna 36.5 mm 24w 3d 69% Yocasta Cav. septi pel. tr 4.4 mm System Configuration Specialist 3.4 mm CM 7.8 mm 94% [...] normal IVC: normal 3-vessel view: Appears normal 4-iasuer-rugxufu view: Appears normal Rt lung: Appears normal [...] weeks GA for growth Coding ======= Description: [id number] Detailed Garment Turner: Jennifer Ruby RDMS Physician: Sarah George MD, FACOG Electronically signed by: Sarah George MD, FACOG at: 11:50 Procedure Note Sarah George MD - 05/23/2025 PAT NAME: KARMEN BRAVO MED REC#: [id number] DA: 2000 PAT GEND: F PAT TYPE: O EXAM RO: [id number] REF PHYS [facility] PUENTES Comparison Studies There are no relevant prior studies to which this study is beingcompared Patient Status Outpatient Indication ======== Concern for bilateral UTD. Bicornuate uterus. Previous PROM/PTD @32 wks Maternal Assessment Asywuk952 cm Height (ft)4 ft Height (in)9 in Prmbhw31 kg Weight (lb)193 lb BMI41.07 kg/m Method ======= Transabdominal ultrasound examination. View: Limited by patient bodyhabitus ========= Rasmussen . Number of fetuses: 1 Dating ====== Method of dating:based on stated CHANTE GA by prior [id number] w + 1 d CHANTE by prior assessment:09/18/2025 Ultrasound examination on:05/23/2025 GA by U/S based upon:AC, BPD, Femur, HC GA by U/S23 w + 0 d CHANTE by U/S:09/19/2025 Assigned:based on stated CHANTE, selected on 05/23/2025 Assigned GA23 w + 1 d Assigned CHANTE:09/18/2025 [id number] d Biometry Standard BPD53.0 mm 22w 1d 12% Hadlock OFD77.9 mm 25w 3d 98% Yocasta HC212.4 mm 23w 2d 41% Hadlock Cerebellum tr25.7 mm 23w 1d 82% Hill AC197.3 mm 24w 3d 80% Hadlock Femur38.4 mm 22w 2d 15% Hadlock Fbxtoif96.0 mm 24w 2d 76% Yocasta HC / AC1.08 RLX871 g 23w 2d 54% Hadlock EFW (lb)1 lb EFW (oz)5 oz EFW by:Hadlock ([id number]-FL) Extended Tibia34.7 mm 23w 0d 40% Yocasta Ljppbp15.3 mm 22w 1d 32% Yocasta Wddksk19.5 mm 23w 5d 56% Yocasta Ulna36.5 mm 24w 3d 69% Yocasta Cav. septi pel. tr4.4 mm Vp3.4 mm CM7.8 mm 94% Nicolaides Nasal bone8.8 mm Rt Renal pelvis ap4.3 mm Lt Renal pelvis ap3.2 mm Head / Face / Neck Cephalic index0.68 <1% Nicolaides Extremities / Bony Struc FL / BPD0.72 FL / HC0.18 FL / AC0.19 Other Structures RST462 bpm General Evaluation Cardiac activity present. FHR [...] view:Appears normal SVC:normal IVC:normal 3-vessel view:Appears normal 1-ihadol-qtlptft view:Appears normal Rt lung:Appears normal Lt lung:normal [...] of uterine malformations:bicornuate uterus Cervix:Visualized Approach:Transabdominal Cervical fmopoc42.0 mm Ovaries / Tubes / Adnexa Rt ovary:Visualized Lt ovary:Visualized Impression Today's exam reveals a SIUP with biometry consistent with dates. Mildunilateral renal pelvic dilation. Otherwise anatomic survey appearsnormal. Fluid is normal. The placenta is anterior, high. The TA cervical length appears adequate Recommendation Follow up 32 weeks GA for growth Coding ======= Description:[id number] Detailed Garment Turner: Jennifer Ruby RDMS Physician: Sarah George MD, FACOG Electronically signed by: Sarah George MD, FACOG at: 1:50 us Milton Puentes MD IMG US ORDERABLES Final Resul t * Urine Culture - Urine, Urine, Clean Catch (05/10/2025 1:49 PM EDT) Urine Culture Final report [facility] Result 1 Comment [facility] Comment: Mixed urogenital biju 10,000-25,000 colony forming units per mL Urine Urine specimen obtained by clean catch procedure / Unknown 05/10/2025 1:49 PM EDT 05/10/2025 Comment:Urine Release to [facility] - 05/12/2025 6:37 AM EDT Performed at: 01 - [address] [id number] Cargo Operations Agent: Dagoberto Campbell PhD, Phone: [phone] us Mingo Limon MD MICROBIOLOGY - GENERAL ORDERABLE S Final Result [facility] [address] [place] [address], [facility] [address] [place] [address], * (ABNORMAL) POC Urinalysis Dipstick (05/10/2025 1:38 PM EDT) Color Dark Yellow Yellow, Straw, Dark Yellow, Char [facility] Clarity, UA Cloudy(A) Clear [facility] Glucose, UA Negative Negative mg/dL [facility] Bilirubin Negative Negative [facility] Ketones, UA Negative Negative [facility] Specific [place] 1.010 1.005 - 1.030 [facility] Blood, UA Negative Negative [facility] pH, Urine 8.0 5.0 - 8.0 [facility] Protein, POC Negative Negative mg/dL [facility] Urobilinogen, UA Normal Normal, 0.2 E.U./dL [facility] Leukocytes Large (3+)(A) Negative [facility] Nitrite, UA Negative Negative [facility] Urine 05/10/2025 1:38 PM EDT Mingo Limon MD POINT OF CARE TEST ORDERABLES Fi nal Result [facility]
[address] [place] [address], * LIQUID-BASED PAP SMEAR WITH HPV GENOTYPING IF ASCUS (GEENA,COR,MAD) (08/27/2024 9:58 AM EDT) Reference Lab Report [facility] [address] [place] [address] or [phone] Masood Herron M.D., Detective Lieutenant PATIENT NAME LABORATORY NO. [id number] KARMEN BRAVO [id number] AGE SEX SSN CLIENT REF # [facility] 22 2000 F [id number] [facility] ANNA RENDON REQUESTING Joe [place] [address] CECILIA CONTRERAS DATE COLLECTED DATE RECEIVED DATE [...] of chlamydial and gonococcal disease using the [place] system. NASCAR DRIVER: JOSHUA OSORIO (ASCP) CPT CODES: 10517, [id number], [id number] 09/04/2024 10:12 AM EDT [facility] ThinPrep Vial Cervix uteri structure / Unknown Collection / Unknown 08/27/2024 9:58 AM EDT 08/27/2024 9:58 AM EDT Cecilia Contreras SUPERVISOR NURSE PATHOLOGY/CYTOLOGY ORDERA BLES Final Result [facility]
[address] [place] [address], [place] [phone] * (ABNORMAL) Lipid Panel (05/21/2024 12:34 PM [...] 05/21/2024 Comment:Blood Manual Differe n Narrative [facility] (AMBULATORY) - 05/22/2024 8:10 AM EDT Performed at: 01 - [facility] [address] [place] [id number] Cargo Operations Agent: Dagoberto Campbell PhD, Phone: [phone] Mingo Limon MD LAB BLOOD ORDERABLES Final Resul t [facility] (AMBULATORY) [address] [place] [address], [place] [phone] [facility] [address] [place] [address], [place] [phone] from Last 3 Months or Most Recently Relevant to Health Maintenance Insurance [facility] Care Teams Fur Joiner Relationship Specialty Start Date End Date Mingo Limon MD [address] [place] [address] PCP - General Internal Medicine 07/30/22
--- OUTSIDE RECORDS SUMMARY | 2025-07-01 09:02 | XMS_ITS | Encounter Summary ---
Author Organization [facility] Address [address] [place] [address] Care Team Providers Care Staffing Assistant Name Role Phone Mingo Limon MD Primary Care Provider [phone] Encounter Details Date Type Department Care Team (Late st Contact Info) Description 05/13/2025 Results Follow-Up [facility] PRIMARY CARE [address] [place] [address] Mingo Limon MD [address] [place] [address] Social History Tobacco Use Types Packs/Day Years [...] Info) Description 07/01/2025 11:45 AM EDT Appointment [facility] DIABETES ED [address] [facility] [address] [place] [address] 07/26/2025 7:30 AM EDT Office Visit [facility] MATERNAL MEDICINE [address] [facility] [address] [place] [address] 07/26/2025 7:30 AM EDT Appointment [facility] US PER DIAG CTR [address] [place] [address] 08/09/2025 10:00 AM EDT Office Visit [facility] CARDIOLOGY [address] [place] [phone] Seivers, Franchesca W, BEHAVIORAL INTERVENTION SPECIALIST [address] [place] [address] [place] [address] 08/19/2025 8:45 AM EDT Office Visit [facility] PRIMARY CARE [address] [place] [phone] Mingo Limon MD [address] [place] [address] [place] [address] documented as of this encounter Visit Diagnoses Not on filedocumented in this encounter Care Teams Staffing Assistant Relationship Specialty Start Date End Date Mingo Limon MD [address] [place] [address] [place] [address] PCP - General Internal Medicine 07/30/22 documented as of this encounter
--- OUTSIDE RECORDS SUMMARY | 2025-07-01 09:02 | XMS_ITS | Encounter Summary ---
Author Organization [facility] Address [address] [place] [address] Care Team Providers Care Outside Salesperson Name Role Phone Mingo Limon MD Primary Care Provider [phone] Encounter Details Date Type Department Care Team [...] Info) Description 07/01/2025 11:45 AM EDT Appointment [facility] DIABETES ED [address] [facility] [address] [place] [address] 07/26/2025 7:30 AM EDT Office Visit [facility] MATERNAL MEDICINE [address] [facility] [address] [place] [address] 07/26/2025 7:30 AM EDT Appointment [facility] US PER DIAG CTR [address] [place] [address] 08/09/2025 10:00 AM EDT Office Visit [facility] CARDIOLOGY [address] [place] [phone] Franchesca Sullivan, GUIDE WINDER [address] [place] [address] 08/19/2025 8:45 AM EDT Office Visit [facility] PRIMARY CARE [address] [place] [address] Mingo Limon MD [address] [place] [address] documented as of this encounter Visit Diagnoses Not on filedocumented in this encounter Care Teams Outside Salesperson Relationship Specialty Start Date End Date Mingo Limon MD [address] [place] [address] PCP - General Internal Medicine 07/30/22 documented as of this encounter
--- OUTSIDE RECORDS SUMMARY | 2025-07-01 09:02 | XMS_ITS | Encounter Summary ---
Author Organization [facility] Address [address] [place] [address] Care Team Providers Care Fire Assistant Name Role Phone Mingo Limon MD Primary Care Provider [phone] Encounter Details Date Type Department Care Team [...] Info) Description 07/01/2025 11:45 AM EDT Appointment [facility] DIABETES ED [address] [facility] [address] [place] [address] 07/26/2025 7:30 AM EDT Office Visit [facility] MATERNAL MEDICINE [address] [facility] [address] [place] [address] 07/26/2025 7:30 AM EDT Appointment [facility] US PER DIAG CTR [address] [address] 08/09/2025 10:00 AM EDT Office Visit [facility] CARDIOLOGY [address] [place] [phone] Franchesca Sullivan, SURG NURSE [address] [place] [address] [place] [address] 08/19/2025 8:45 AM EDT Office Visit [facility] PRIMARY CARE [address] [place] [address] Mingo Limon MD [address] [place] [address] documented as of this encounter Visit Diagnoses Not on filedocumented in this encounter Care Teams Fire Assistant Relationship Specialty Start Date End Date Mingo Limon MD [address] [place] [address] PCP - General Internal Medicine 07/30/22 documented as of this encounter
--- OUTSIDE RECORDS SUMMARY | 2025-07-01 09:02 | XMS_ITS | Encounter Summary ---
Author Organization [facility] Address [address] [place] [address] Care Team Providers Care Waterworks Employee Name Role Phone Mingo Limon MD Primary Care Provider [phone] Encounter Details Date Type Department Care Team (Latest Contact Info) Description 06/24/2025 Travel Social History Tobacco Use Types Packs/Day [...] Info) Description 07/01/2025 11:45 AM EDT Appointment [facility] DIABETES ED [address] [facility] [address] [place] [address] 07/26/2025 7:30 AM EDT Office Visit [facility] MEDICAL [facility] MATERNAL MEDICINE [address] [facility] [address] [place] [address] 07/26/2025 7:30 AM EDT Appointment [facility] US PER DIAG CTR [address] [place] [address] 08/09/2025 10:00 AM EDT Office Visit [facility] CARDIOLOGY [address] [place] [address] [address] Franchesca Sullivan, ARMATURE CONNECTOR [address] [place] [address] [place] [address] 08/19/2025 8:45 AM EDT Office Visit [facility] PRIMARY CARE [address] [place] [address] Mingo Limon MD [address] [place] [address] documented as of this encounter Visit Diagnoses Not on filedocumented in this encounter Care Teams Waterworks Employee Relationship Specialty Start Date End Date Mingo Limon MD [address] [place] [address] PCP - General Internal Medicine 07/30/22 documented as of this encounter
--- OUTSIDE RECORDS SUMMARY | 2025-07-01 09:02 | XMS_ITS | Clinical Summary ---
Author Organization Healthcare Address [address] [place] [address] Care Team Providers Care Retail Product Demo Specialist Name Role Phone Pcp, No Primary Care [...] drink first t elyssa in the morning (EYE-METHODS SPECIALIST ENGINEER) to steady your nerves or to get [...] [facility]-HIV Screening 2002 [facility]-Hepatitis C Screening 2002 [facility]-/Child/Adol SDOH Screenings 2002 [facility]-Obesity Intervention 2008 [facility]- SDOH Screenings 2020 [facility]-Adult SDOH Screenings 2020 [facility]-Pap Smear 2023 [id number] Vaccine ( season) 2024 10/12/2021, 04/01/2021, 03/04/2021 [...] require contact precautions indefinitely. 05/07/2023 05/07/2023 Insurance [facility] Advance Directives * Full Code (Latest Code Status on File) Date Activated Date Inactivated Comments 05/03/2023 8:40 AM 05/09/2023 7:09 PM Question Answer Comments Patient has decision-making capacity? Yes Care Teams Retail Product Demo Specialist Relationship Specialty Start Date End Date Pcp, No [address] [place] [address] PCP - General Family Medicine 05/02/23
--- OUTSIDE RECORDS SUMMARY | 2025-07-01 09:02 | XMS_ITS | Encounter Summary ---
Author Organization [facility] Address [address] [place] [address] Care Team Providers Care Business Support Name Role Phone Mingo Limon MD Primary Care Provider [phone] Encounter Details Date Type Department Care Team [...] Info) Description 07/01/2025 11:45 AM EDT Appointment [facility] [address] [facility] [address] [place] [address] 07/26/2025 7:30 AM EDT Office Visit [facility] MATERNAL MEDICINE [address] [facility] [address] [place] [address] 07/26/2025 7:30 AM EDT Appointment [facility] US [facility]AG CTR [address] [place] [address] 08/09/2025 10:00 AM EDT Office Visit [facility] CARDIOLOGY [address] [address] Franchesca Sullivan, DECORATING CONSULTANT [address] [place] [address] 08/19/2025 8:45 AM EDT Office Visit [facility] PRIMARY CARE [address] [place] [address] Mingo Limon MD [address] [place] [address] documented as of this encounter Visit Diagnoses Not on filedocumented in this encounter Care Teams Business Support Relationship Specialty Start Date End Date Mingo Limon MD [address] [place] [address] PCP - General Internal Medicine 07/30/22 documented as of this encounter
--- OUTSIDE RECORDS SUMMARY | 2025-07-01 09:02 | XMS_ITS | Encounter Summary ---
Author Organization [facility] Address [address] [place] [address] Care Team Providers Care Librarian Helper Name Role Phone Mingo Limon MD Primary Care Provider [phone] Reason for Visit * Reason Comments Med Refill Encounter Details Date Type Department Care Team (Late st Contact Info) Description 05/27/2025 Refill [facility] PRIMARY CARE [address] [place] [address] [place] [address] Mingo Limon MD [address] [place] [address] ADHD, predominantly inattentive type Social [...] 07/01/2025 11:45 AM EDT Appointment [facility] DIABETES ED [address] [facility] [address] [place] [address] 07/26/2025 7:30 AM EDT Office Visit [facility] MATERNAL MEDICINE [address] [facility] [address] [place] [address] 07/26/2025 7:30 AM EDT Appointment [facility] US PER DIAG CTR [address] [place] [address] 08/09/2025 10:00 AM EDT Office Visit [facility] CARDIOLOGY [address] [place] [address] Franchesca Sullivan W, FIELD ADVISOR [address] [place] [address] 08/19/2025 8:45 AM EDT Office Visit [facility] PRIMARY CARE [address] [place] [address] Mingo Limon MD [address] [place] [address] [place] [address] documented as of this encounter Visit Diagnoses Diagnosis ADHD, 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
--- OUTSIDE RECORDS SUMMARY | 2025-07-01 09:02 | XMS_ITS | Encounter Summary ---
Author Organization [facility] Address [address] [place] [address] Care Team Providers Care Robotic Weld Technician Name Role Phone Mingo Limon MD Primary Care Provider [phone] Reason for Visit * Reason Onset Date Comments FRANCHESCA BADILLO 05/08/2025 Encounter Details Date Type Department Care Team (Late st Contact Info) Description 05/08/2025 Telephone [facility] CARDIOLOGY [address] [place] [address] Franchesca Hare, MANAGER INVENTORY MANAGEMENT [address] [place] [address] [place] [address] FRANCHESCA HARE-LUIS Social History Tobacco Use Types [...] to patient: Self Best call back number: [phone] Chief complaint: Type of visit: FOLLOW UP [...] Info) Description 07/01/2025 11:45 AM EDT Appointment [facility] DIABETES ED [address] [facility] [address] [place] [address] 07/26/2025 7:30 AM EDT Office Visit [facility] MATERNAL MEDICINE [address] [facility] [address] [place] [address] 07/26/2025 7:30 AM EDT Appointment [facility] US PER DIAG CTR [address] [place] [address] 08/09/2025 10:00 AM EDT Office Visit [facility] CARDIOLOGY [address] [address] Franchesca Hare, MANAGER INVENTORY MANAGEMENT [address] [place] [address] [place] [address] 08/19/2025 8:45 AM EDT Office Visit [facility] PRIMARY CARE [address] [place] [address] Mingo Limon MD [address] [place] [place] [address] documented as of this encounter Visit Diagnoses Not on filedocumented in this encounter Care Teams Robotic Weld Technician Relationship Specialty Start Date End Date Mingo Limon MD [address] [place] [address] PCP - General Internal Medicine 07/30/22 documented as of this encounter
--- OUTSIDE RECORDS SUMMARY | 2025-07-01 09:02 | XMS_ITS | Encounter Summary ---
Author Organization [facility] Address [address] [place] [address] Care Team Providers Care Video System Repairer Name Role Phone Mingo Limon MD Primary Care Provider Encounter Details Date Type Department Care Team (Late st Contact Info) Description 05/16/2025 Telephone [facility] CARDIOLOGY [address] [place] [address] Franchesca Sullivan, DIRECTOR PART [address] [place] [address] Social History Tobacco Use Types Packs/Day Years [...] patient. LVM to call back. Will send [employer] message. * Telephone Encounter - Ines Gonzales [...] Info) Description 07/01/2025 11:45 AM EDT Appointment [facility] DIABETES ED [address] [place] [address] 07/26/2025 7:30 AM EDT Office Visit [facility] MATERNAL MEDICINE [address] [place] [address] 07/26/2025 7:30 AM EDT Appointment [facility] US PER DIAG CTR [address] [place] [address] 08/09/2025 10:00 AM EDT Office Visit [facility] CARDIOLOGY [address] [id number] Franchesca Sullivan, DIRECTOR PART [address] [place] [address] 08/19/2025 8:45 AM EDT Office Visit [facility] PRIMARY CARE [address] [place] [address] Mingo Limon MD [address] [place] [address] [place] [address] documented as of this encounter Visit Diagnoses Not on filedocumented in this encounter Care Teams Video System Repairer Relationship Specialty Start Date End Date Mingo Limon MD [address] [place] [address] PCP - General Internal Medicine 07/30/22 documented as of this encounter
--- OUTSIDE RECORDS SUMMARY | 2025-07-01 09:02 | XMS_ITS | Patient Health Record ---
Author Organization [facility] Address [address] [place] [address] Care Team Providers Care Bulldozer Press Operator Name Role Phone SANDOR BLAKELY Unavailable [phone] Sandor Blakely MD Unavailable Unavailable Allergies No Known Allergies [...] Diflucan 200 MG 1 tablet Orally evelyn y; Duration: 1 days 09/30/2022 Active Azithromycin 250 MG 2 tablet on the day, then 1 tablet daily for 4 days Orally Once a day; Duration: 5 day(s) 09/30/2022 Active Social History Tobacco [...] Insured Coverage Start Date Coverage End Date [facility] MEDICAID [address] [place] [address] [phone] [id number] [place] [employer] Self - patient is the insured Medical (General) History Medical History History ICD Code DEPRESSION AND ANXIETY Surgical History Surgery Date(Month/Year) WISDOM TEETH 2019
== END 2025-06-26 23:59 | disposition home or self-care (01) ==
LOC: LAB.DROPOF 07-01 08:56
PROVIDERS: PCP Pediatrics; Visit Provider Nurse Practitioner Obstetrics & Gynecology
DX: O23.40 Unspecified infection of urinary tract in pregnancy, unspecified trimester (principal)
CPT/HCPCS: 87086

== ENCOUNTER 2025-07-05 16:20 | Outpatient (CLI) | payer OTHER, SELFPAY ==
--- OUTSIDE RECORDS SUMMARY | 2025-05-10 12:30 | XMS_ITS | Encounter Summary ---
Author Organization [facility] Address [address] [place] [address] Care Team Providers Care Gym Manager Name Role Phone Mingo Limon MD Primary Care Provider [phone] Reason for Visit * Reason Comments Follow-up Medication follow up Encounter Details Date Type Department Care Team (Late st Contact Info) Description 05/10/2025 12:30 PM EDT Office Visit [facility] CARDIOLOGY [address] [phone] SeFranchesca he, HARVEST WORKER [address] [place] [address] [place] [address] Palpitations (Primary Dx); Tachycardia Social History Tobacco [...] need to switch to labetalol per her COUNTER PERSON Dr. Kimbrough at [facility]. Patient has been instructed to start [...] states she will be seeing OB at [facility] for high risk . She states she [...] will be following with High risk at [facility] and her regular OBGYN she will be [...] need to switch to labetalol per her COUNTER PERSON Dr. Kimbrough at [facility]. Patient has been instructed to start [...] Care Team (Late st Contact Info) Description 07/26/2025 7:30 AM EDT Office Visit [facility] MATERNAL MEDICINE [address] [place] [address] 07/26/2025 7:30 AM EDT Appointment [facility] PER DIAG [facility] [address] [place] [address] 08/09/2025 10:00 AM EDT Office Visit [facility] CARDIOLOGY [address] [place] [address] Franchesca Sullivan APRN [address] [place] [address] 08/19/2025 8:45 AM EDT Office Visit [facility] PRIMARY CARE [address] [place] [address] Mingo Limon MD [address] [place] [address] documented as of this encounter Visit Diagnoses Diagnosis Palpitations- Primary Tachycardia Unspecified tachycardia documented in this encounter Care Teams Gym Manager Relationship Specialty Start Date End Date Mingo Limon MD [address] [place] [address] [address] PCP - General Internal Medicine 07/30/22 documented as of this encounter
--- OUTSIDE RECORDS SUMMARY | 2025-05-10 13:15 | XMS_ITS | Encounter Summary ---
Author Organization [facility] Address [address] [place] [address] Care Team Providers Care Commissioned Security Officer Name Role Phone Mingo Limon MD Primary Care Provider [phone] Reason for Visit * Reason Comments Urinary Tract Infection Encounter Details Date Type Department Care Team (Late st Contact Info) Description 05/10/2025 1:15 PM EDT Office Visit [facility] PRIMARY CARE [address] [place] [address] Mingo Limon MD [address] [place] [address] [place] [id number] Acute cystitis without hematuria (Primary Dx); ADHD, [...] diagnosis by review of her history, with [place] forms showing the same. No comorbid sleep [...] with stability prefer to continue as per dental aide. Of note we had transiently held ADHD [...] good stabilityand with her previous stability the dental aide prefers her to stay on her regimen [...] Negative Negative Ketones, UA Negative Negative Specific [place] 1.010 1.005 - 1.030 Blood, UA Negative [...] diagnosis by review of her history, with [place] forms showing the same. No comorbid sleep [...] with stability prefer to continue as per dental aide. Of note we had transiently held ADHD [...] Description 07/26/2025 7:30 AM EDT Office Visit [facility] MATERNAL MEDICINE [address] [facility] [address] [place] [address] 07/26/2025 7:30 AM EDT Appointment [facility] [address] [place] [address] 08/09/2025 10:00 AM EDT Office Visit [facility] CARDIOLOGY [address] [address] Franchesca Sullivan, TRAVELER CHANGER [address] [place] [address] [place] [address] 08/19/2025 8:45 AM EDT Office Visit [facility] PRIMARY [facility] [address] [place] [address] Mingo Limon MD [address] [place] [address] [place] [address] documented as of this encounter Procedures Procedure [...] 1:49 PM EDT 05/10/2025 Comment:Urine Release to [facility] i Narrative [facility] - 05/12/2025 6:37 AM EDT Performed at: 01 - [address] [id number] Electrostatic Painter: Dagoberto Campbell PhD, Phone: [phone] us Mingo Limon MD MICROBIOLOGY - GENERAL ORDERABLE S Final Result Performing Organization Address City/[facility]/ZIP Co de Phone Number [facility] (AMBULATORY) [address] [place] [address], [place] [phone] [facility] [address] [place] [address], [place] [phone] * (ABNORMAL) POC Urinalysis Dipstick (05/10/2025 1:38 PM EDT) Color Dark Yellow Yellow, Straw, Dark Yellow, Char [facility] Clarity, UA Cloudy(A) Clear [facility] Glucose, UA Negative Negative mg/dL [facility] Bilirubin Negative Negative [facility] Ketones, UA Negative Negative [facility] Specific [place] 1.010 1.005 - 1.030 [facility] Blood, UA Negative Negative [facility] pH, Urine 8.0 5.0 - 8.0 [facility] Protein, POC Negative Negative mg/dL [facility] Urobilinogen, UA Normal Normal, 0.2 E.U./dL [facility] Leukocytes Large (3+)(A) Negative [facility] Nitrite, UA Negative Negative [facility] Urine 05/10/2025 1:38 PM EDT us Mingo Limon MD POINT OF CARE TEST ORDERABLES Fi nal Result [facility]
[address] [place] [address], documented in this encounter Visit Diagnoses Diagnosis Acute cystitis without hematuria- Primary ADHD, predominantly inattentive type Attention deficit disorder without mention of hyperactivity Anxiety and depression documented in this encounter Care Teams Commissioned Security Officer Relationship Specialty Start Date End Date Mingo Limon MD [address] [place] [address] [place] [address] PCP - General Internal Medicine 07/30/22 documented as of this encounter
--- OUTSIDE RECORDS SUMMARY | 2025-05-23 10:06 | XMS_ITS | Encounter Summary ---
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, antepartum History of delivery, currently Tachycardia History of gestational diabetes in prior , currently , unspecified gestational age Encounter for repeat ultrasound of pyelectasis, antepartum, not applicable or unspecified fetus Procedures [facility] Milton Puentes MD [facility] [address] [address] Phone: tel: fax: [facility] [address] [place] [address] Phone: tel: Referral ID Status Reason Start Date Expiration Date Visits Re quested Visits Authorized [id number] Closed 05/02/2025 08/01/2026 1 1 Reason for [...] not applicable or unspecified fetus Procedures [facility] Milton Puentes MD [address] [place] [address] [address] Phone: tel: fax: [facility] [address] [place] [address] Phone: tel: Referral ID Status Reason Start Date Expiration Date Visits Re quested Visits Authorized [id number] Closed 05/02/2025 08/01/2026 1 1 Encounter Details Date Type Department Care Team (Latest Contact Info) Description 05/23/2025 10:06 AM EDT - 05/23/2025 11:59 PM EDT Hospital Encounter [facility] [address] [place] [address] Milton Puentes MD [address] [place] [address] 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, antepartum; [...] Description 07/26/2025 7:30 AM EDT Office Visit [facility] MATERNAL MEDICINE [address] [place] [address] 07/26/2025 7:30 AM EDT Appointment [facility] [address] [place] [address] 08/09/2025 10:00 AM EDT Office Visit [facility] CARDIOLOGY [address] [place] [address] Franchesca Sullivan, NIRAV [address] [place] [address] [place] [address] 08/19/2025 8:45 AM EDT Office Visit [facility] PRIMARY CARE [address] [place] [address] Mingo Limon MD [address] [place] [address] [place] [address] documented as of this encounter Procedures Procedure Name Priority Date/Time Associated Diagnosis Comments [facility] Routine 05/23/2025 11:41 AM EDT 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, antepartum History of delivery, currently Tachycardia History of gestational diabetes in prior , currently , unspecified gestational age Encounter for repeat ultrasound of pyelectasis, antepartum, not applicable or unspecified fetus documented in this encounter Results * [facility] (05/23/2025 11:41 AM EDT) Anatomical Region Laterality Modality Ultrasound 05/23/2025 10:5 2 AM EDT Narrative 05/23/2025 11:50 AM EDT PAT NAME: KARMEN GU MED REC#: [id number] DA: 2000 PAT GEND: F PAT TYPE: O EXAM RO: [id number] REF PHYS [facility] PUENTES Comparison Studies There [...] EFW (oz) 5 oz EFW by: Hadlock (VNG-ZO-XS-FL) Extended Tibia 34.7 mm 23w 0d 40% Yocasta Fibula 33.3 mm 22w 1d 32% Yocasta Radius 33.5 mm 23w 5d 56% Yocasta Ulna 36.5 mm 24w 3d 69% Yocasta Cav. septi pel. tr 4.4 mm Alumni Relations Manager 3.4 mm CM 7.8 mm 94% Nicolaides [...] normal IVC: normal 3-vessel view: Appears normal 2-cyoivg-yxnoufn view: Appears normal Rt lung: Appears normal [...] weeks GA for growth Coding ======= Description: 38744-83 Detailed Powder And Primer Canning Leader: Jennifer Ruby RDMS Physician: Sarah George MD, FACOG Electronically signed by: Sarah George MD, FACOG at: 11:50 Procedure Note Sarah George MD - 05/23/2025 PAT NAME: KARMEN GU MED REC#: [id number] DA: 2000 PAT GEND: F PAT TYPE: O EXAM RO: [id number] REF PHYS [facility] PUENTES Comparison Studies There are no relevant prior studies to which this study is beingcompared Patient Status Outpatient Indication ======== Concern for bilateral UTD. Bicornuate uterus. Previous PROM/PTD @32 wks Maternal Assessment Uecfmg331 cm Height (ft)4 ft Height (in)9 in Qvdfyi34 kg Weight (lb)193 lb BMI41.07 kg/m Method ======= Transabdominal ultrasound examination. View: Limited by patient bodyhabitus ========= Rasmussen . Number of fetuses: 1 Dating ====== Method of dating:based on stated CHANTE GA by prior w + 1 d CHANTE by prior assessment:09/18/2025 Ultrasound examination on:05/23/2025 GA by U/S based upon:AC, BPD, Femur, HC GA by U/S23 w + 0 d CHANTE by U/S:09/19/2025 Assigned:based on stated CHANTE, selected on 05/23/2025 Assigned GA23 w + 1 d Assigned CHANTE:09/18/2025 ambuvc078 d Biometry Standard BPD53.0 mm 22w 1d 12% Hadlock OFD77.9 mm 25w 3d 98% Yocasta HC212.4 mm 23w 2d 41% Hadlock Cerebellum tr25.7 mm 23w 1d 82% Hill AC197.3 mm 24w 3d 80% Hadlock Femur38.4 mm 22w 2d 15% Hadlock Rkszmtj77.0 mm 24w 2d 76% Yocasta HC / AC1.08 UXB980 g 23w 2d 54% Hadlock EFW (lb)1 lb EFW (oz)5 oz EFW by:Hadlock (OAT-FQ-SE-FL) Extended Tibia34.7 mm 23w 0d 40% Yocasta Bhlvwz13.3 mm 22w 1d 32% Yocasta Msonmw73.5 mm 23w 5d 56% Yocasta Ulna36.5 mm 24w 3d 69% Yocasta Cav. septi pel. tr4.4 mm Vp3.4 mm CM7.8 mm 94% Nicolaides Nasal bone8.8 mm Rt Renal pelvis ap4.3 mm Lt Renal pelvis ap3.2 mm Head / Face / Neck Cephalic index0.68 <1% Nicolaides Extremities / Bony Struc FL / BPD0.72 FL / HC0.18 FL / AC0.19 Other Structures FDO917 bpm General Evaluation Cardiac activity present. FHR [...] view:Appears normal SVC:normal IVC:normal 3-vessel view:Appears normal 8-rgxhgy-fujksoc view:Appears normal Rt lung:Appears normal Lt lung:normal [...] of uterine malformations:bicornuate uterus Cervix:Visualized Approach:Transabdominal Cervical tgoqdx71.0 mm Ovaries / Tubes / Adnexa Rt ovary:Visualized Lt ovary:Visualized Impression Today's exam reveals a SIUP with biometry consistent with dates. Mildunilateral renal pelvic dilation. Otherwise anatomic survey appearsnormal. Fluid is normal. The placenta is anterior, high. The TA cervical length appears adequate Recommendation Follow up 32 weeks GA for growth Coding ======= Description:81128-78 Detailed Powder And Primer Canning Leader: Jennifer Ruby RDMS Physician: Sarah George MD, FACOG Electronically signed by: Sarah George MD, FACOG at: 1:50 us Milton Puentes MD [facility] US ORDERABLES Final Resul t documented in [...] fetus documented in this encounter Care Teams Internal Combustion Engine Inspector Relationship Specialty Start Date End Date Mingo Limon MD [address] [place] [address] [place] [address] PCP - General Internal Medicine 07/30/22 documented as of this encounter
--- OUTSIDE RECORDS SUMMARY | 2025-05-23 10:30 | XMS_ITS | Encounter Summary ---
Author Organization [facility] Address [address] [place] [address] Care Team Providers Care Cafeteria Food Server Name Role Phone Mingo Limno MD Primary Care Provider [phone] Reason for Referral * Diagnostic Imaging (Routine) - Closed Specialty Diagnoses / Procedures Referred By Contac t Referred To Contact Radiology Diagnoses Bicornuate uterus Procedures [facility] Sarah George MD [address] [facility] [address] [place] [address] Phone: tel: fax: [facility] US PER DIAG CTR [address] [place] [address] Phone: tel: Referral ID Status Reason Start Date Expiration Date Visits Re quested Visits Authorized [id number] Closed 05/23/2025 08/22/2026 1 1 Reason for Visit * Reason Comments bicornuate uterus; hx PTD (31 wk); hx GD M; mat. tachycardia Encounter Details Date Type Department Care Team (Late st Contact Info) Description 05/23/2025 10:30 AM EDT Office Visit [facility] MATERNAL MEDICINE [address] [facility] [address] [place] [address] Sarah George MD [address] [facility] [address] [place] [address] Bicornuate uterus (Primary Dx) Social History Tobacco [...] under imaging tab of patient chart in [facility] (Viewpoint report). Sarah George MD documented in this encounter Plan of Treatment Upcoming Encounters Date Type Department Care Team (Late st Contact Info) Description 07/26/2025 7:30 AM EDT Office Visit [facility] MATERNAL MEDICINE [address] [place] [address] 07/26/2025 7:30 AM EDT Appointment [facility] US PER DIAG CTR [address] [place] [address] 08/09/2025 10:00 AM EDT Office Visit [facility] CARDIOLOGY [address] [address] Franchesca Sullivan, INFORMATION TECHNOLOGY MANAGER [address] [place] [address] 08/19/2025 8:45 AM EDT Office Visit [facility] PRIMARY CARE [address] [place] [address] Mingo Limon MD [address] [place] [address] [place] [address] documented as of this encounter Results * [facility] (06/27/2025 11:29 AM EDT) Anatomical Region Laterality Modality Ultrasound 06/27/2025 11:1 7 AM EDT Narrative 07/02/2025 8:14 PM EDT PAT NAME: KARMEN GU MED REC#: [id number] DA: [id number] PAT GEND: F PAT TYPE: O EXAM RO: [id number] REF PHYS MILTON PUENTES Comparison Studies The [...] EFW (oz) 12 oz EFW by: Hadlock (ZIF-[id number]-FL) Extended Cav. septi pel. tr 6.9 mm [...] Normal Heart / Thorax 3-vessel view: Normal 8-wlgfpp-ueowrkr view: normal Stomach: Appears normal Kidneys: Appears normal Bladder: Appears normal Gender: male Wants to know gender: yes Impression ========= Cephalic S=D Normal appearing limited anatomy Normal fluid Recommendation FOllow up 4 weeks Coding ====== Description: 12504-07 Follow Up Lead Laying And Gluing Machine Operator: Myranda De La Torre RDMS Physician: Sarah George MD, FACOG Electronically signed by: Sarah George MD, FACOG at: 20:14 Procedure Note Sarah George MD - 07/02/2025 PAT NAME: KARMEN GU MED REC#: [id number] DA: [id number] PAT GEND: F PAT TYPE: O EXAM RO: [id number] REF PHYS MILTON PUENTES Comparison Studies The findings of this study are compared to the prior ultrasound studydated 05/23/25 Patient Status Outpatient Indication ======== Gestational diabetes. Hx PPROM and PTD 32 wk. Morbid obesity BMI 40. Maternal Assessment Isswuz835 cm Height (ft)4 ft Height (in)9 in Jdpfbh86 kg Weight (lb)188 lb BMI40.01 kg/m Method ======= Transabdominal ultrasound examination. View: Adequate view ========= Rasmussen . Number of fetuses: 1 Dating ====== Method of dating:based on stated CHANTE GA by prior [id number] w + 1 d CHANTE by prior assessment:09/18/2025 Ultrasound examination on:06/27/2025 GA by U/S based upon:AC, BPD, Femur, HC GA by U/S29 w + 1 d CHANTE by U/S:09/11/2025 Previous dating:based on stated CHANTE, selected on 05/23/2025 Agreed CHANTE of previous datin09/18/2025 Assigned:based on stated CHANTE, selected on 06/27/2025 Assigned GA28 w + 1 d Assigned CHANTE:09/18/2025 [id number] d Biometry Standard BPD74.3 mm 29w 6d 87% Hadlock OFD99.6 mm 32w 1d >99% Yocasta HC278.2 mm 30w 3d 86% Hadlock Cerebellum tr38.5 mm 31w 2d >99% Hill AC244.8 mm 28w 5d 61% Hadlock Femur51.4 mm 27w 3d 18% Hadlock Tylhfdo61.3 mm 27w 6d 34% Yocasta HC / AC1.14 EFW1,245 g 28w 1d 53% Hadlock EFW (lb)2 lb EFW (oz)12 oz EFW by:Hadlock (ETJ-ND-YS-FL) Extended Cav. septi pel. tr6.9 mm CM8.0 mm 82% Nicolaides Head / Face / Neck Cephalic index0.75 11% Nicolaides Extremities / Bony Struc FL / BPD0.69 FL / HC0.18 FL / AC0.21 Other Structures IHI489 bpm General Evaluation Cardiac activity present. FHR [...] LVOT view:Normal Heart / Thorax 3-vessel view:Normal 5-nzscaa-rtnlmcp view:normal Stomach:Appears normal Kidneys:Appears normal Bladder:Appears normal Gender:male Wants to know gender:yes Impression ========= Cephalic S=D Normal appearing limited anatomy Normal fluid Recommendation FOllow up 4 weeks Coding ====== Description:46852-30 Follow Up Lead Laying And Gluing Machine Operator: Myranda De La Torre RDMS Physician: Sarah George MD, FACOG Electronically signed by: Sarah George MD, FACOG at: 20:14 us Sarah George MD IMG US ORDERABLES Final Result documented in this encounter Visit Diagnoses Diagnosis Bicornuate uterus- Primary Bicornuate uterus documented in this encounter Care Teams Cafeteria Food Server Relationship Specialty Start Date End Date Mingo Limon MD [address] [place] [address] [place] [address] PCP - General Internal Medicine 07/30/22 documented as of this encounter
--- OUTSIDE RECORDS SUMMARY | 2025-06-13 13:00 | XMS_ITS | Encounter Summary ---
Author Organization [facility] Address [address] [place] [address] Care Team Providers Care Sap Fico Business Analyst Name Role Phone Mingo Limon MD Primary Care Provider [phone] Reason for Visit * Reason Comments Med Refill Encounter Details Date Type Department Care Team (Late st Contact Info) Description 06/13/2025 1:00 PM EDT Office Visit [facility] [address] [place] [address] [place] [address] Mingo Limon MD [address] [place] [address] ADHD, predominantly inattentive type (Primary Dx); Anxiety and depression; Gestational diabetes mellitus (GDM) in second trimester controlled on oral hypoglycemic drug; Mixed hyperlipidemia; Palpitations Social History Tobacco Use Types Packs/Day Years Used Date Smoking Tobacco: Never Passive Smoke Exposure: Never Smokeless Tobacco: Never Alcohol Use Standard Drinks/Week Comments Not Currently 0 (1 standard drink = 0.6 oz pure alcohol) occasional use when not PHQ-2 Answer Date Recorded Retired PHQ-9: Brief Depression Severity Measure Score 0 09/02/2023 PHQ-2 Answer Date Recorded Patient Health Questionnaire-2 Score 1 06/13/2025 Estimated Date of Delivery Comme nts Yes [...] Sign Reading Time Taken Comments Blood Pressure 108/68 06/13/2025 12:55 PM EDT Pulse 102 06/13/2025 1:04 PM EDT Temperature 36.6 C (97.8 F) 06/13/2025 12:55 PM EDT Respiratory Rate - - Oxygen Saturation 98% 06/13/2025 12:55 PM EDT Inhaled Oxygen Concentration - - Weight 86.7 kg (191 lb 3.2 oz) 06/13/2025 12:55 PM EDT Height 147.3 cm (4' 9.99 ) 06/13/2025 12:55 PM E DT Body Mass Index 39.97 06/13/2025 12:55 PM EDT documented in this encounter Functional Status documented as of this encounter Progress Notes * Mingo Limon MD - 06/13/2025 1:35 PM EDTAssociated Problem(s): Palpitations With increase in palpitations as of 05/17/2024, EKG obtained which was nonconcerning, and fasting blood work was obtained including thyroid panel, magnesium all of which were normal. Referred to [facility] cardiology who completed echo 06/14/2024 which was normal and had nonconcerning Holter monitor. Initially placed on metoprolol 25 mg ER daily, then switched to propranolol 20 mg, most recentlyat 05/10/2025 switched over to labetalol 100 mg twice daily which she is taking with good tolerability. Keep follow-up with cardiology. * Mingo Limon MD - 06/13/2025 1:35 PM EDTAssociated Problem(s): Mixed hyperlipidemia 05/21/2024 total cholesterol 147, triglycerides 230, HDL 42, LDL 68. Modest increased triglycerides and lower than desired HDL but still overall fairly good profile. Recommend healthy diet, exercise, weight loss. No indication for medication at this time. Plan to recheck blood work yearly. * Mingo Limon MD - 06/13/2025 1:34 PM EDTAssociated Problem(s): Diet controlled gestational diabetes mellitus (GDM) in third trimester Previous diagnosis of gestational diabetes with her 2022 , and recent testing through [facility] expense clerk reveals what appears to be a failed 1 hour 2-hour and 3-hour glucose challenge test, as such it appears she is progressing to a similar pattern. No current medications atthis time but keep regular follow-up with expense clerk. Of note she had been placed in on glipizide 5 mg nightly with benefit * Mingo Limon MD - 06/13/2025 1:34 PM EDTAssociated Problem(s): Anxiety and depression Initially [...] continues to do well and with this stability, and as she has been doing well has been recommended by gynecology to continue regimen through . Continue lifestyle modifications to benefit mood. Reassess at follow-up visit. * Mingo Limon MD - 06/13/2025 1:32 PM EDTAssociated Problem(s): ADHD, predominantly inattentive type Inattention subtype with formal diagnosis on 11/17/2018, although she had reported similar diagnosis in her elementary years. Typical pattern of this diagnosis by review of her history, with [employer] forms showing the same. No comorbid sleep [...] 5 mg midday, number 30 tablets both refilled on 05/27/2025 and S that she is not quitedue but call when she is due for next month's refill. She is currently at 26 weeks gestation as of 06/13/2025, but doing well on regimen and with stability prefer to continue as per expense clerk. Of note we had transiently held ADHD medicine in April 2024 to see if there is exacerbating palpitations but did not have any effect. She understands his controlled substance. Plan to do urine drug screen with next blood work. * Mingo Limon MD - 06/13/2025 1:00 PM EDT Images from the original note were not included. Follow Up Office Visit Date: 06/13/2025 Patient Name: Karmen Gu : 2000 Chief Complaint: Chief Complaint Patient presents with Med Refill History of Present Illness: Karmen Gu is a 25 y.o. female who is here today to follow up withmedical problems. Regarding adult ADHD pattern she is still having good benefit on methylphenidate ER 36 mg morning and 5 mg midday although not requiring midday dosing is much as she does not working currently. Additionally anxiety depressive symptoms with stability on her regimen of Lexapro buspirone and Wellbutrin, no SI/HI and handling her stressors appropriately. Economic Adviser has recommendedher to continue on the regimen of ADHD and mood medications in context of her stability prior to . Regarding her there has been some recent glucose challenge test that appears thatshe has failed and she may be progressing towards gestational diabetes as she had previous. With cholesterol in the overweight pattern she has ongoing attempts to not gain too much weight in and is doing fairly well in that regard. Allergy and asthma symptoms are doing well with good contr ol at this time Subjective Review of Systems: Review of Systems I have reviewed the patients family history, social history, past medical history, past surgical history and have updated it as appropriate. Medications: Current Outpatient Medications: albuterol sulfate HFA 108 (90 Base) MCG/ACT inhaler, Inhale 2 puffs Every 4 (Four) Hours As Needed for Wheezing., Disp: 18 g, Rfl: 2 Allergy Relief 10 MG tablet, Take 1 tablet by mouth Daily. (Patient taking differently: Take 1 tablet by mouth As Needed. Patient reports Claritin), Disp: 30 tablet, Rfl: 3 budesonide-formoterol (Symbicort) 160-4.5 MCG/ACT inhaler, Inhale 2 puffs Every 4 (Four) Hours As Needed (Asthma). Rinse mouth with water after each use, Disp: 10.2 g, Rfl: 1 buPROPion XL (WELLBUTRIN XL) 300 MG 24 hr tablet, Take 1 tablet by mouth Daily., Disp: 90 tablet, Rfl: 1 busPIRone (BUSPAR) 15 MG tablet, Take 1 tablet by mouth 2 (Two) Times a Day., Disp: 180 tablet, Rfl: 1 escitalopram (LEXAPRO) 20 MG tablet, Take 1 tablet by mouth Daily., Disp: 90 tablet, Rfl: 1 fluticasone (FLONASE) 50 MCG/ACT nasal spray, 2 sprays into the nostril(s) as directed by provider Daily., Disp: 15.8 mL, Rfl: 3 labetalol (NORMODYNE) 200 MG tablet, Take 1 tablet by mouth 2 (Two) Times a Day., Disp: 60 tablet, Rfl: 6 methylphenidate (RITALIN) 5 MG tablet, 1 tablet orally at noon, Disp: 30 tablet, Rfl: 0 methylphenidate 36 MG CR tablet, Take 1 tablet by mouth Every Morning, Disp: 30 tablet, Rfl: 0 montelukast (Singulair) 10 MG tablet, Take 1 tablet by mouth Every Night., Disp: 30 tablet, Rfl: 3 Vit-Fe Fumarate-FA ( vitamin 27-0.8) 27-0.8 MG tablet tablet, Take 1 tablet by mouth Daily., Disp: , Rfl: Allergies: No Known Allergies Objective Physical Exam: Please see above Vital Signs: Vitals: 06/13/25 1255 06/13/25 1304 BP: 108/68 BP Location: Left arm Patient Position: Sitting Cuff Size: Adult Pulse: 118 102 Temp: 97.8 ??F (36.6 ??C) TempSrc: Temporal SpO2: 98% Weight: 86.7 kg (191 lb 3.2 oz) Height: 147.3 cm (57.99 ) Facility age limit for growth %fanta is 20 years. Body mass index is 39.97 kg/m??. Physical Exam Constitutional: General: She is not in acute distress. Appearance: Normal appearance. She is not ill-appearing, toxic-appearing or diaphoretic. HENT: Right Ear: Tympanic membrane, ear canal and external ear normal. Left Ear: Tympanic membrane, ear canal and external ear normal. Nose: Rhinorrhea present. Comments: Mild clear rhinorrhea Mouth/Throat: Mouth: Mucous membranes are moist. Pharynx: [...] is no distension. Palpations: Abdomen is soft. Tenderness: There is no abdominal tenderness. There is no guarding or rebound. Comments: Gravid abdomen Musculoskeletal: Cervical back: Neck supple. No tenderness. Right lower leg: No edema. Left lower leg: No edema. Lymphadenopathy: Cervical: No cervical adenopathy. Skin: General: Skin is warm and dry. Capillary Refill: Capillary refill takes less than 2 seconds. Neurological: General: No focal deficit present. Mental Status: She is alert and oriented to person, place, and time. Mental status is at baseline. Psychiatric: Mood and Affect: Mood normal. Behavior: Behavior normal. Thought Content: Thought content normal. Procedures Results: Labs: Hemoglobin A1C Date Value Ref Range Status 05/21/2024 5.6 4.8 - 5.6 % Final Comment: Prediabetes: 5.7 - 6.4 Diabetes: >6.4 Glycemic control for adults with diabetes: <7.0 04/13/2023 5.2 % Final TSH Date Value Ref Range Status 05/21/2024 1.880 0.450 - 4.500 uIU/mL Final Imaging: No valid procedures specified. Class 2 Severe Obesity (BMI >=35 and <=39.9). Obesity-related health conditions include the following: impaired fasting glucose. Obesity is unchanged. BMI is is above average; BMI management plan is completed. We discussed low calorie, low carb based diet program, portion control, increasing exercise, and joining a fitness center or start home based exercise program. Vaccine Counseling: Assessment / Plan Assessment/Plan: Diagnoses and all orders for this visit: 1. ADHD, predominantly inattentive type (Primary) Assessment & Plan: Inattention subtype with formal diagnosis on 11/17/2018, although she had reported similar diagnosis in her elementary years. Typical pattern of this diagnosis by review of her history, with [employer] forms showing the same. No comorbid sleep [...] 5 mg midday, number 30 tablets both refilled on 05/27/2025 and S that she is not quitedue but call when she is due for next month's refill. She is currently at 26 weeks gestation as of 06/13/2025, but doing well on regimen and with stability prefer to continue as per expense clerk. Of note we had transiently held ADHD medicine in April 2024 to see if there is exacerbating palpitations but did not have any effect. She understands his controlled substance. Plan to do urine drug screen with next blood work. 2. Anxiety and depression Assessment & Plan: Initially [...] May 2023, where she had a premature infant requiring NICU stay with understandably increased stressors, as such we added Wellbutrin 150 mg XL daily to regimen Lexapro andbuspirone, and increased Wellbutrin 150 mg XL up to 300 mg XL dosing today on 11/06/2024. No SI/HI.She continues to do well and with this stability, and as she has been doing well has been recommended by gynecology to continue regimen through . Continue lifestyle modifications to benefit mood. Reassess at follow-up visit. Orders: - busPIRone (BUSPAR) 15 MG tablet; Take 1 tablet by mouth 2 (Two) Times a Day. Dispense: 180 tablet; Refill: 1 - buPROPion XL (WELLBUTRIN XL) 300 MG 24 hr tablet; Take 1 tablet by mouth Daily. Dispense: 90 tablet; Refill: 1 3. Gestational diabetes mellitus (GDM) in second trimester controlled on oral hypoglycemic drug Assessment & Plan: Previous diagnosis of gestational diabetes with her 2022 , and recent testing through [facility] expense clerk reveals what appears to be a failed 1 hour 2-hour and 3-hour glucose challenge test, as such it appears she is progressing to a similar pattern. No current medications atthis time but keep regular follow-up with expense clerk. Of note she had been placed in on glipizide 5 mg nightly with benefit 4. Mixed hyperlipidemia Assessment & Plan: 05/21/2024 total cholesterol 147, triglycerides 230, HDL 42, LDL 68. Modest increased triglycerides and lower than desired HDL but still overall fairly good profile. Recommend healthy diet, exercise, weight loss. No indication for medication at this time. Plan to recheck blood work yearly. 5. Palpitations Assessment & Plan: With increase in palpitations as of 05/17/2024, EKG obtained which was nonconcerning, and fasting blood work was obtained including thyroid panel, magnesium all of which were normal. Referred to [facility] cardiology who completed echo 06/14/2024 which was normal and had nonconcerning Holter monitor. Initially placed on metoprolol 25 mg ER daily, then switched to propranolol 20 mg, most recentlyat 05/10/2025 switched over to labetalol 100 mg twice daily which she is taking with good tolerability. Keep follow-up with cardiology. Follow Up: Return in about 3 months (around 09/13/2025) for Next scheduled follow up, ADHD monitoring. Mingo Limon MD [facility] documented in this encounter Plan of Treatment Upcoming Encounters Date Type Department Care Team (Late st Contact Info) Description 07/26/2025 7:30 AM EDT Office Visit [facility] [address] [place] [address] 07/26/2025 7:30 AM EDT Appointment [facility] [address] [place] [address] 08/09/2025 10:00 AM EDT Office Visit [facility] [address] [address] Franchesca Sullivan, CONSTRUCTION EQUIPMENT TECHNICIAN [address] [place] [address] [place] [address] 08/19/2025 8:45 AM EDT Office Visit [facility] [address] [place] [address] Mingo Limon MD [address] [place] [address] documented as of this encounter Visit Diagnoses Diagnosis ADHD, predominantly inattentive type- Primary Attention deficit disorder without mention of hyperactivity Anxiety and depression Gestational diabetes mellitus (GDM) in second trimester controlled on oral hypoglycemic drug Mixed hyperlipidemia Palpitations documented in this encounter Care Teams Sap Fico Business Analyst Relationship Specialty Start Date End Date Mingo Limon MD [address] [place] [address] PCP - General Internal Medicine 07/30/22 documented as of this encounter
--- OUTSIDE RECORDS SUMMARY | 2025-06-24 12:49 | XMS_ITS | Encounter Summary ---
Author Organization [facility] Address [address] [place] [address] Care Team Providers Care Chief Wellness Officer Name Role Phone Mingo Limon MD Primary Care Provider Encounter Details Date Type Department Care Team (Late st Contact Info) Description 06/24/2025 12:49 PM EDT - 06/24/2025 11:59 PM EDT Hospital Encounter [facility] DIABETES ED [address] [place] [address] Juan Miguel Marie MD [address] [facility] [address] [place] [phone] Discharge Disposition: Home or Self Care Social [...] [facility] MATERNAL MEDICINE [address] [facility] [address] [place] [address] 07/26/2025 7:30 AM EDT Appointment [facility] US PER DIAG CTR [address] [place] [address] 08/09/2025 10:00 AM EDT Office Visit [facility] CARDIOLOGY [address] [place] [address] Franchesca Sullivan, MANAGER STRATEGY & ACCOUNT [address] [place] [address] 08/19/2025 8:45 AM EDT Office Visit [facility] PRIMARY CARE [address] [place] [phone] Mingo Limon MD [address] [place] [address] [place] [address] documented as of this encounter Visit Diagnoses Not on filedocumented in this encounter Care Teams Chief Wellness Officer Relationship Specialty Start Date End Date Mingo Limon MD [address] [place] [address] [place] [address] PCP - General Internal Medicine 07/30/22 documented as of this encounter
--- OUTSIDE RECORDS SUMMARY | 2025-06-27 11:01 | XMS_ITS | Encounter Summary ---
Author Organization [facility] Address [address] [place] [address] Care Team Providers Care Charger Operator Name Role Phone Mingo Limon MD Primary Care Provider [phone] Reason for Referral * Diagnostic Imaging (Routine) - Closed Specialty Diagnoses / Procedures Referred By Arlethac t Referred To Contact Radiology Diagnoses Bicornuate uterus Procedures [facility] Diagnostic [place] Sarah George MD [address] [address] Phone: tel: fax: [facility] US PER DIAG CTR [address] [place] [address] Phone: tel: Referral ID Status Reason Start Date Expiration Date Visits Re quested Visits Authorized [id number] Closed 05/23/2025 08/22/2026 1 1 Reason for Visit * Diagnostic Imaging (Routine) - Closed Specialty Diagnoses / Procedures Referred By Contac t Referred To Contact Radiology Diagnoses Bicornuate uterus Procedures [facility] Diagnostic [place] Sarah George MD [address] [address] Phone: tel: fax: [facility] US PER DIAG CTR [address] [place] [address] Phone: tel: Referral ID Status Reason Start Date Expiration Date Visits Re quested Visits Authorized [id number] Closed 05/23/2025 08/22/2026 1 1 Encounter Details Date Type Department Care Team (Late st Contact Info) Description 06/27/2025 11:01 AM EDT - 06/27/2025 11:59 PM EDT Hospital Encounter [facility] PER DIAG CTR [address] [place] [address] Sarah [facility] [facility] [address] [address] [place] [address] Bicornuate uterus Discharge Disposition: Home [...] mouth Daily. documented as of this encounter Plan of Treatment Upcoming Encounters Date Type Department Care Team (Late st Contact Info) Description 07/26/2025 7:30 AM EDT Office Visit [facility] MATERNAL MEDICINE [address] [place] [address] 07/26/2025 7:30 AM EDT Appointment [facility] US PER DIAG CTR [address] [place] [address] 08/09/2025 10:00 AM EDT Office Visit [facility] CARDIOLOGY [address] [address] Franchesca he, BACK TENDER INSULATION BOARD [address] [place] [address] [place] [address] 08/19/2025 8:45 AM EDT Office Visit [facility] PRIMARY CARE [address] [place] [address] [place] [address] Mingo Limon MD [address] [place] [address] [place] [address] documented as of this encounter Procedures Procedure Name Priority Date/Time Associated Diagnosis Comments [facility] Routine 06/27/2025 11:29 AM EDT Bicornuate uterus documented in this encounter Results * [facility] (06/27/2025 11:29 AM EDT) Anatomical Region Laterality Modality Ultrasound 06/27/2025 11:1 7 AM EDT Narrative 07/02/2025 8:14 PM EDT PAT NAME: KARMEN GU MED REC#: [id number] DA: [id number] PAT GEND: F PAT TYPE: O EXAM RO: [id number] REF PHYS PU[place]TON Comparison Studies The findings of this study [...] EFW (oz) 12 oz EFW by: Hadlock ([id number]) Extended Cav. septi pel. tr 6.9 mm [...] Normal Heart / Thorax 3-vessel view: Normal 8-hudxug-ehahvft view: normal Stomach: Appears normal Kidneys: Appears normal Bladder: Appears normal Gender: male Wants to know gender: yes Impression ========= Cephalic S=D Normal appearing limited anatomy Normal fluid Recommendation FOllow up 4 weeks Coding ====== Description: 90362-71 Follow Up Tool And Die Designer: Myranda De La Torre RDMS Physician: Sarah George MD, FACOG Electronically signed by: Sarah George MD, FACOG at: 20:14 Procedure Note Sarah George MD - 07/02/2025 PAT NAME: KARMEN GU MED REC#: [id number] DA: [id number] PAT GEND: F PAT TYPE: O EXAM RO: [id number] REF PHYS MILTON PUENTES Comparison Studies The findings of this study are compared to the prior ultrasound studydated 05/23/25 Patient Status Outpatient Indication ======== Gestational diabetes. Hx PPROM and PTD 32 wk. Morbid obesity BMI 40. Maternal Assessment Sxhtjc091 cm Height (ft)4 ft Height (in)9 in Utpung79 kg Weight (lb)188 lb BMI40.01 kg/m Method ======= Transabdominal ultrasound examination. View: Adequate view ========= Rasmussen . Number of fetuses: 1 Dating ====== Method of dating:based on stated CHANTE GA by prior [id number] w + 1 d CHANTE by prior [...] Hadlock Femur51.4 mm 27w 3d 18% Hadlock [place]63.3 mm 27w 6d 34% Yocasta HC / AC1.14 EFW1,245 g 28w 1d 53% Hadlock EFW (lb)2 lb EFW (oz)12 oz EFW by:Hadlock ([id number]-JR-[id number]-FL) Extended Cav. septi pel. tr6.9 mm CM8.0 mm 82% Nicolaides Head / Face / Neck Cephalic index0.75 11% Nicolaides Extremities / Bony Struc FL / BPD0.69 FL / HC0.18 FL / AC0.21 Other Structures XKG225 bpm General Evaluation Cardiac activity present. FHR [...] LVOT view:Normal Heart / Thorax 3-vessel view:Normal 8-ituani-rimrigf view:normal Stomach:Appears normal Kidneys:Appears normal Bladder:Appears normal Gender:male Wants to know gender:yes Impression ========= Cephalic S=D Normal appearing limited anatomy Normal fluid Recommendation FOllow up 4 weeks Coding ====== Description:68955-38 Follow Up Tool And Die Designer: Myranda De La Torre RDMS Physician: Sarah George MD, FACOG Electronically signed by: Sarah George MD, FACOG at: 20:14 us Sarah George MD IMG US ORDERABLES Final Result documented in this encounter Visit Diagnoses Diagnosis Bicornuate uterus documented in this encounter Care Teams Charger Operator Relationship Specialty Start Date End Date Mingo Limon MD [address] [place] [address] [place] [address] PCP - General Internal Medicine 07/30/22 documented as of this encounter
--- OUTSIDE RECORDS SUMMARY | 2025-06-27 11:15 | XMS_ITS | Encounter Summary ---
Author Organization [facility] Address [address] [place] [address] Care Team Providers Care Sports Journalist Name Role Phone Mingo Limon MD Primary Care Provider [phone] Reason for Referral * Diagnostic Imaging (Routine) - Authorized Specialty Diagnoses / Procedures Referred By Arlethac t Referred To Contact Radiology Diagnoses Bicornuate uterus Diet controlled gestational diabetes mellitus (GDM) in third trimester Procedures [facility] Sarah George MD [address] [facility] [address] [place] [address] Phone: tel: fax: [facility] US PER DIAG CTR [address] [facility] [place] [address] Phone: tel: Referral ID Status Reason Start Date Expiration Date V isits Requested Visits Authorized Authorized 07/02/2025 10/01/2026 1 1 Reason for Visit * Reason Comments GDM, bicornate ut, hx 32 wk PTD, MO Encounter Details Date Type Department Care Team (Late st Contact Info) Description 06/27/2025 11:15 AM EDT Office Visit [facility] MATERNAL MEDICINE [address] [facility] [address] [place] [address] Sarah George MD [address] [facility] [address] [place] [address] Bicornuate uterus (Primary Dx); Diet controlled gestational [...] under imaging tab of patient chart in [facility] (Viewpoint report). Sarah George MD documented in this encounter Plan of Treatment Upcoming Encounters Date Type Department Care Team (Late st Contact Info) Description 07/26/2025 7:30 AM EDT Office Visit [facility] MATERNAL MEDICINE [address] [facility] [address] [place] [address] 07/26/2025 7:30 AM EDT Appointment [facility] PER DIAG CTR [address] [place] [address] 08/09/2025 10:00 AM EDT Office Visit [facility] CARDIOLOGY [address] [place] [address] Franchesca Sullivan, MARKETING [employer] OP [address] [place] [address] 08/19/2025 8:45 AM EDT Office Visit [facility] PRIMARY CARE [address] [place] [address] [place] [address] Mingo Limon MD [address] [place] [address] [place] [address] Scheduled Orders Name Type Priority Associated Diagnoses Orde r Schedule formerly [facility] Center Imaging Routine Bicornuate uterus Diet controlled gestational diabetes mellitus (GDM) in third trimester Expected: 07/30/2025, Expires: 07/02/2026 documented as of this encounter Visit Diagnoses Diagnosis Bicornuate uterus- Primary Diet controlled gestational diabetes mellitus (GDM) in third trimester documented in this encounter Care Teams Sports Journalist Relationship Specialty Start Date End Date Mingo Limon MD [address] [place] [address] PCP - General Internal Medicine 07/30/22 documented as of this encounter
--- OUTSIDE RECORDS SUMMARY | 2025-07-01 11:45 | XMS_ITS | Encounter Summary ---
Author Organization [facility] Address [address] [place] [address] Care Team Providers Care Home Improvement Contractor Name Role Phone Mingo Limon MD Primary Care Provider [phone] Encounter Details Date Type Department Care Team (Latest Contact Info) Description 07/01/2025 11:45 AM EDT - 07/01/2025 11:59 PM EDT Hospital Encounter [facility] DIABETES ED [address] [facility] [address] [place] [address] Discharge Disposition: Home or Self [...] for assessment and notes if you use [employer]. If you are not an [employer] user a copy of patient's assessment and notes will be sent per routine. Thank you. Electronically signed by: Yelena De La Paz RN, [facility] 07/01/25 12:42 EDT documented in this encounter Plan of Treatment Upcoming Encounters Date Type Department Care Team (Late st Contact Info) Description 07/26/2025 7:30 AM EDT Office Visit [facility] MATERNAL MEDICINE [address] [facility] [address] [place] [address] 07/26/2025 7:30 AM EDT Appointment [facility] US PER DIAG CTR [address] [facility] [place] [address] 08/09/2025 10:00 AM EDT Office Visit [facility] CARDIOLOGY [address] [place] [address] Franchesca Sullivan, GRANITE SANDBLASTER APPRENTICE [address] [place] [address] 08/19/2025 8:45 AM EDT Office Visit [facility] PRIMARY CARE [address] [place] [address] Mingo Limon MD [address] [place] [address] [place] [address] documented as of this encounter Visit Diagnoses Not on filedocumented in this encounter Care Teams Home Improvement Contractor Relationship Specialty Start Date End Date Mingo Limon MD [address] [place], [place] [address] PCP - General Internal Medicine 07/30/22 documented as of this encounter
--- OUTSIDE RECORDS SUMMARY | 2025-07-05 16:24 | XMS_ITS | Encounter Summary ---
Author Organization [facility] Address [address] [place] [address] Care Team Providers Care Sucker Machine Operator Name Role Phone Mingo Limon MD Primary Care Provider [phone] Encounter Details Date Type Department Care Team (Late st Contact Info) Description 06/27/2025 Documentation [facility]NAL MEDICINE [address] [facility] [address] [place] [address] Vira Paniagua, RN Social History [...] use vitaliy. Patient is to notify through [employer] once she has entered in our clinic code and is agreeable to keep blood sugar log until she has received confirmation from us that we can see her data. Vira Paniagua RN documented in this encounter Plan of Treatment Upcoming Encounters Date Type Department Care Team (Late st Contact Info) Description 07/26/2025 7:30 AM EDT Office Visit [facility] [address] [facility] [address] [place] [address] 07/26/2025 7:30 AM EDT Appointment [facility] [address] [place] [address] 08/09/2025 10:00 AM EDT Office Visit [facility] C[facility] [address] [place] [address] Franchesca Sullivan, TECHNICIAN TEST SYSTEMS [address] [place] [address] 08/19/2025 8:45 AM EDT Office Visit [facility] [address] [place] [address] [place] [id number] Mingo Limon MD [address] [place] [address] [place] [address] documented as of this encounter Visit Diagnoses Not on filedocumented in this encounter Care Teams Sucker Machine Operator Relationship Specialty Start Date End Date Mingo Limon MD [address] [place] [address] PCP - General Internal Medicine 07/30/22 documented as of this encounter
--- OUTSIDE RECORDS SUMMARY | 2025-07-05 16:25 | XMS_ITS | Patient Health Record ---
Author Organization [facility] Address [address] [place] [address] Care Team Providers Care Sifting Operator Name Role Phone SANDOR BLAKELY Unavailable [phone] Sandor Blakely MD Unavailable Unavailable Allergies No [...] Insured Coverage Start Date Coverage End Date [facility] MEDICAID [address] [place] [address] [id number] [place] [employer] Self - patient is the insured Medical (General) History Medical History History ICD Code DEPRESSION AND ANXIETY Surgical History Surgery Date(Month/Year) WISDOM TEETH 2019
--- OUTSIDE RECORDS SUMMARY | 2025-07-05 16:25 | XMS_ITS | Encounter Summary ---
Author Organization [facility] Address [address] [place] [address] Care Team Providers Care Md Pediatric Allergist Name Role Phone Mingo Limon MD Primary Care Provider Reason for Visit * Reason Onset Date Comments Advice Only 07/03/2025 Encounter Details Date Type Department Care Team (Late st Contact Info) Description 07/03/2025 Telephone [facility] MATERNAL MEDICINE [address] [facility] [address] [place] [address] Vira Paniagua diesel trailer mechanic Only Social History Tobacco Use Types Packs/Day Years [...] encounter Miscellaneous Notes * Telephone Encounter - Vira Paniagua RN - 07/03/2025 3:59 PM EDT Spoke with patient over the phone. Informed patient that DR. Murray has reviewed her blood sugardata and is starting her on Lispro 4 units to take 15 minutes before each meal. Discussed with patient this would be a pen dial and she would also receive needles to go with it. Patient voices understanding and denies any further needs. Patient confirms she wants to use [facility] in [place]. Vira Paniagua RN documented in this encounter Plan of Treatment Upcoming Encounters Date Type Department Care Team (Late st Contact Info) Description 07/26/2025 7:30 AM EDT Office Visit [facility] [facility] [address] [address] [place] [address] 07/26/2025 7:30 AM EDT Appointment [facility] PER DIAG [facility] [address] [place] [address] 08/09/2025 10:00 AM EDT Office Visit [facility] CARDIOLOG[facility] [address] [place] [address] Franchesca Sullivan W, EMPLOYEE DEVELOPMENT MANAGER [address] [place] [address] 08/19/2025 8:45 AM EDT Office Visit [facility] [address] [place] [address] [place] [address] Mingo Limon MD [address] [place] [address] [place] [address] documented as of this encounter Visit Diagnoses Not on filedocumented in this encounter Care Teams Md Pediatric Allergist Relationship Specialty Start Date End Date Mingo Limon MD [address] [place] [address] [place] [address] PCP - General Internal Medicine 07/30/22 documented as of this encounter
--- OUTSIDE RECORDS SUMMARY | 2025-07-05 16:25 | XMS_ITS | Encounter Summary ---
Author Organization [facility] Address [address] [place] [address] Care Team Providers Care Assistant Cook Name Role Phone Mingo Limon MD Primary Care Provider [phone] Encounter Details Date Type Department Care Team [...] Description 07/26/2025 7:30 AM EDT Office Visit [facility] MATERNAL MEDICINE [address] [place] [address] 07/26/2025 7:30 AM EDT Appointment [facility] [address] [place] [address] 08/09/2025 10:00 AM EDT Office Visit [facility] CARDIOLOGY [address] [place] [address] [address] Franchesca Sullivan, BILLING DEPARTMENT SUPERVISOR [address] [place] [address] [place] [address] 08/19/2025 8:45 AM EDT Office Visit [facility]IMARY [facility]ARE [address] [place] [address] Mingo Limon MD [address] [place] [address] documented as of this encounter Visit Diagnoses Not on filedocumented in this encounter Care Teams Assistant Cook Relationship Specialty Start Date End Date Mingo Limon MD [address] [place] [address] PCP - General Internal Medicine 07/30/22 documented as of this encounter
--- OUTSIDE RECORDS SUMMARY | 2025-07-05 16:25 | XMS_ITS | Encounter Summary ---
Author Organization [facility] Address [address] [place] [address] Care Team Providers Care Weather Reporter Name Role Phone Mingo Limon MD Primary Care Provider [phone] Reason for Visit * Reason Onset Date Comments FRANCHESCA BADILLO 05/08/2025 Encounter Details Date Type Department Care Team (Late st Contact Info) Description 05/08/2025 Telephone [facility] CARDIOLOGY [address] [place] [address] Franchesca Hare, PRODUCTION LINE OPERATOR [address] [place] [address] [place] [address] FRANCHESCA HARE-LUIS Social History Tobacco Use Types [...] to patient: Self Best call back number: [phone] Chief complaint: Type of visit: FOLLOW UP [...] Description 07/26/2025 7:30 AM EDT Office Visit [facility]NAL MEDICINE [address] [facility] [address] [address] [place] [address] 07/26/2025 7:30 AM EDT Appointment [facility] US PER DIAG CTR [address] [place] [address] 08/09/2025 10:00 AM EDT Office Visit [facility] CARDIOLOGY [address] [place] [address] Franchesca Hare W, PRODUCTION LINE OPERATOR [address] [place] [address] 08/19/2025 8:45 AM EDT Office Visit [facility] PRIMARY CARE [address] [place] [address] [address] [facility] [place] [address] documented as of this encounter Visit Diagnoses Not on filedocumented in this encounter Care Teams Weather Reporter Relationship Specialty Start Date End Date Mingo Limon MD [address] [place] [address] [place] [address] PCP - General Internal Medicine 07/30/22 documented as of this encounter
--- OUTSIDE RECORDS SUMMARY | 2025-07-05 16:25 | XMS_ITS | Clinical Summary ---
Author Organization [facility] Address [address] [place] [address] Care Team Providers Care Loader Helper Name Role Phone Pcp, No Primary Care [...] drink first t elyssa in the morning (E[employer]ERCIAL HVAC SERVICE TECHNICIAN) to steady your nerves or to [...] [facility]-Adult SDOH Screenings 2020 [facility]-Pap Smear 2023 [id number] Vaccine ( season) 2024 10/12/2021, 04/01/2021, 03/04/2021 [...] require contact precautions indefinitely. 05/07/2023 05/07/2023 Insurance [facility] Advance Directives * Full Code (Latest Code Status on File) Date Activated Date Inactivated Comments 05/03/2023 8:40 AM 05/09/2023 7:09 PM Question Answer Comments Patient has decision-making capacity? Yes Care Teams Loader Helper Relationship Specialty Start Date End Date Pcp, No [address] [place] [address] PCP - General Family Medicine 05/02/23
--- OUTSIDE RECORDS SUMMARY | 2025-07-05 16:25 | XMS_ITS | Encounter Summary ---
Author Organization [facility] Address [address] [place] [address] Care Team Providers Care Pilot Steam Yacht Name Role Phone Mingo Limon MD Primary Care Provider [phone] Encounter Details Date Type Department Care Team (Late st Contact Info) Description 05/16/2025 Telephone [facility] CARDIOLOGY [address] [place] [address] Franchesca Sullivan, CATTLE DEHORNER [address] [place] [address] [place] [address] Social History Tobacco Use Types Packs/Day Years [...] patient. LVM to call back. Will send [employer] message. * Telephone Encounter - Ines Gonzales [...] Description 07/26/2025 7:30 AM EDT Office Visit [facility] MATERNAL MEDICINE [address] [place] [address] 07/26/2025 7:30 AM EDT Appointment [facility] [address] [place] [address] 08/09/2025 10:00 AM EDT Office Visit [facility] CARDIOLOGY [address] [place] [address] Franchesca Sullivan, CATTLE DEHORNER [address] [place] [address] [place] [address] 08/19/2025 8:45 AM EDT Office Visit [facility] PRIMARY CARE [address] [place] [address] Mingo Limon MD [address] [place] [address] documented as of this encounter Visit Diagnoses Not on filedocumented in this encounter Care Teams Pilot Steam Yacht Relationship Specialty Start Date End Date Mingo Limon MD [address] [place] [address] PCP - General Internal Medicine 07/30/22 documented as of this encounter
--- OUTSIDE RECORDS SUMMARY | 2025-07-05 16:25 | XMS_ITS | Encounter Summary ---
Author Organization [facility] Address [address] [place] [address] Care Team Providers Care Hydrodynamicist Name Role Phone Mingo Limon MD Primary Care Provider [phone] Reason for Visit * Reason Comments Med Refill Encounter Details Date Type Department Care Team (Late st Contact Info) Description 05/27/2025 Refill [facility] PRIMARY CARE [address] [place] [address] [place] [address] Mingo Limon MD [address] [place] [address] ADHD, predominantly inattentive type Social [...] Description 07/26/2025 7:30 AM EDT Office Visit [facility]ICINE [address] [facility] [address] [place] [address] 07/26/2025 7:30 AM EDT Appointment [facility] US PER DIAG [facility] [address] [place] [address] 08/09/2025 10:00 AM EDT Office Visit [facility] CARDIOLOGY [address] [place] [address] [id number] Franchesca Sullivan, DIP TANKER [address] [place] [address] [place] [address] 08/19/2025 8:45 AM EDT Office Visit [facility] [address] [place] [address] [place] [address] Mingo Limon MD [address] [place] [address] [place] [address] documented as of this encounter Visit Diagnoses Diagnosis ADHD, 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
--- OUTSIDE RECORDS SUMMARY | 2025-07-05 16:25 | XMS_ITS | Encounter Summary ---
Author Organization [facility] Address [address] [place] [address] Care Team Providers Care Animal Care Attendant Name Role Phone Mingo Limno MD Primary Care Provider [phone] Encounter Details Date Type Department Care Team [...] Description 07/26/2025 7:30 AM EDT Office Visit [facility] MATERNAL MEDICINE [address] [place] [address] 07/26/2025 7:30 AM EDT Appointment [facility] PER DIAG [facility] [address] [place] [address] 08/09/2025 10:00 AM EDT Office Visit [facility] CARDIOLOGY [address] [address] [address] Franchesca Sullivan, STEAM PLANT RECORDS CLERK [address] [place] [address] 08/19/2025 8:45 AM EDT Office Visit [facility] PRIMARY CARE [address] [place] [address] [place] [address] Mingo Limon MD [address] [place] [address] [place] [address] documented as of this encounter Visit Diagnoses Not on filedocumented in this encounter Care Teams Animal Care Attendant Relationship Specialty Start Date End Date Mingo Limon MD [address] [place] [address] [place] [address] PCP - General Internal Medicine 07/30/22 documented as of this encounter
--- OUTSIDE RECORDS SUMMARY | 2025-07-05 16:25 | XMS_ITS | Encounter Summary ---
Author Organization [facility] Address [address] [place] [address] Care Team Providers Care Performance Improvement Analyst Name Role Phone Mingo Limon MD Primary Care Provider [phone] Encounter Details Date Type Department Care Team [...] Visit [facility] MATERNAL MEDICINE [address] [place] [address] 07/26/2025 7:30 AM EDT Appointment [facility] US PER DIAG CTR [address] [place] [address] 08/09/2025 10:00 AM EDT Office Visit [facility] CARDIOLOGY [address] [place] [address] [address] Franchesca Sullivan, DIRECTOR MEDIA [address] [place] [address] 08/19/2025 8:45 AM EDT Office Visit [facility] PRIMARY CARE [address] [place] [address] [place] [address] Mingo Limon MD [address] [place] [address] [place] [address] documented as of this encounter Visit Diagnoses Not on filedocumented in this encounter Care Teams Performance Improvement Analyst Relationship Specialty Start Date End Date Mingo Limon MD [address] [place] [address] [place] [address] PCP - General Internal Medicine 07/30/22 documented as of this encounter
--- OUTSIDE RECORDS SUMMARY | 2025-07-05 16:25 | XMS_ITS | Clinical Summary ---
Author Organization [facility] Address [address] [place] [address] Care Team Providers Care Regional Branch Manager Name Role Phone Mingo Limon MD Primary Care Provider [phone] Allergies No known active allergies Medications fluticasone [...] Active Continuous Glucose Sensor (Dexcom G7 Sensor) misc USE As directed EVERY 10 DAYS 025 Active Insulin Lispro, 1 Unit Dial, (HumaLOG KwikPen) 100 UNIT/ML solution pen-injector Inject 4 Units under the skin into the appropriate area as directed 3 (Three) Times a Day With Meals. Please take 15 minutes before each meal. 15 mL 025 Active Insulin Pen Needle (Pen Parachute) 31G X 5 MM misc Use 1 each 4 (Four) Times a Day. 100 each 2 025 Active busPIRone (BUSPAR) 15 MG tabletIndication [...] that on Tuesday she bent over to garbage pick up man her child and her heart rate went [...] of which were normal. Referred to [facility] cardiology who completed echo 06/14/2024 which [...] need to switch to labetalol per her CABIN FURNISHINGS INSTALLER Dr. Kimbrough at [facility]. Patient has been instructed to start [...] of which were normal. Referred to [facility] cardiology who completed echo 06/14/2024 which was normal and had nonconcerning Holter monitor. Initial metoprolol 25 mg ER daily, switch to propranolol 20 mg in the potential she could get in the future this would prefer medicine. Overall she is clinically feeling better on regimen medicine. Keep follow-up with [facility] cardiology. Assessment & Plan (06/14/2024 4:33 [...] sensation with sitting to standing, with equivocal Arkoma-Hallpike maneuver which has since resolved. At that [...] a bit of a dizzy sensation with Arkoma-Hallpike maneuver to the left she did not [...] 1 week's time we will recheck the Arkoma-Hallpike maneuver to see if there is any [...] Patient previously been using NuvaRing through her floor press operator, but has interested in switching over to [...] to treatment she could discuss with her OB/floor press operator currently with concern, about next treatment option. [...] , and recent testing through [facility] tunnel miner reveals what appears to be a failed 1 hour 2-hour and 3-hour glucose challenge test, as such it appears she is progressing to a similar pattern. No current medications at this time but keep regular follow-up with tunnel miner. 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 Santos, tunnel miner and [facility]. Plan in place with potential complications of transition to [facility] if she delivers earlier has significant [...] diabetes mellitus. Nonetheless keep regular follow-up with OB/floor press operator who has placed her on glipizide 5 [...] diagnosis by review of her history, with [place] forms showing the same. No comorbid sleep [...] with stability prefer to continue as per tunnel miner. Of note we had transiently held ADHD [...] with stability prefer to continue as per tunnel miner. Of note we had transiently held ADHD [...] diagnosis by review of her history, with [place] forms showing the same. No comorbid sleep [...] diagnosis by review of her history, with [place] forms showing the same. No comorbid sleep [...] diagnosis by review of her history, with [place] forms showing the same. 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 Reinforced healthy diet, good activity level is [...] Encounters Date Type Department Care Team Description 07/03/2025 Medication Therapy Management [facility] [address] [facility] [address] [place] [address] Daija Murray MD 07/03/2025 Telephone [facility] [address] [facility] [address] [place] [address] Vira Paniagua, maintenance engineer oil field Only 07/01/2025 11:45 AM EDT - 07/01/2025 11:59 PM EDT Hospital Encounter [facility] [address] [facility] [address] [place] [address] Discharge Disposition: Home or Self Care 07/01/2025 Travel 06/27/2025 11:15 AM EDT Office Visit [facility] MATERNAL MEDICINE [address] BEDS AT THE [facility] [address] [place] [address] Sarah George MD Bicornuate uterus (Primary Dx); Diet controlled gestational diabetes mellitus (GDM) in third trimester 06/27/2025 11:01 AM EDT - 06/27/2025 11:59 PM EDT Hospital Encounter [facility] PER DIAG CTR [address] [place] [address] Sarah George MD Bicornuate uterus Discharge Disposition: Home or Self Care 06/27/2025 Documentation [facility]NAL MEDICINE [address] BEDS AT THE [facility] [address] [place] [address] Vira Paniagua RN 06/27/2025 Travel 06/24/2025 12:49 PM EDT - 06/24/2025 11:59 PM EDT Hospital Encounter [facility] ED [address] BEDS AT THE [facility] [address] [place] [address] Juan Miguel Marie MD Discharge Disposition: Home or Self Care 06/24/2025 Travel 06/13/2025 1:00 PM EDT Office Visit [facility] PRIMARY CARE [address] [place] [address] [place] [address] Mingo Limon MD ADHD, predominantly inattentive type (Primary Dx); Anxiety and depression; Gestational diabetes mellitus (GDM) in second trimester controlled on oral hypoglycemic drug; Mixed hyperlipidemia; Palpitations 06/13/2025 Travel 05/27/2025 Refill [facility] [address] [place] [address] [place] [address] Mingo Limon MD ADHD, predominantly inattentive type 05/23/2025 10:30 AM EDT Office Visit [facility] MATERNAL MEDICINE [address] COUNT[address] INCLUDE 234 BEDS AT THE [facility] [address] [place] [address] Sarah George MD Bicornuate uterus (Primary Dx) 05/23/2025 10:06 AM EDT - 05/23/2025 11:59 PM EDT Hospital Encounter [facility] PER DI[facility] CTR [address] [place] [address] Milton Puentes MD 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, antepartum; History of delivery, currently ; Tachycardia; History of gestational diabetes in prior , currently ; , unspecified gestational age; Encounter for repeat ultrasound of pyelectasis, antepartum, not applicable or unspecified fetus Discharge Disposition: Home or Self Care 05/23/2025 Travel 05/16/2025 Telephone [facility] [address] [place] [address] Franchesca Sullivan APRN 05/13/2025 Results Follow-Up [facility] [address] [place] [address] [place] [address] Mingo Liomn MD 05/10/2025 1:15 PM EDT Office Visit [facility] PRIMARY [address] [place] [address] Mingo Limon MD Acute cystitis without hematuria (Primary Dx); ADHD, predominantly inattentive type; Anxiety and depression 05/10/2025 12:30 PM EDT Office Visit [facility] [address] [place] [address] Franchesca Sullivan APRN Palpitations (Primary Dx); Tachycardia 05/10/2025 Travel 05/08/2025 Telephone [facility] [address] [place] [address] Franchesca Sullivan APRN [facility] 04/09/2025 Refill [facility] PRIMARY [address] [place] [address] Mingo Limon MD Anxiety and depression; ADHD, predominantly inattentive type 04/04/[address] [facility] [address] [place] [address] [place] [address] Mingo Limon MD ADHD, predominantly inattentive type 04/04/2025 [facility] PRIMARY CARE [address] [place] [address] [place] [address] Mingo Limon MD [...] Description 07/26/2025 7:30 AM EDT Office Visit [facility] MATERNAL MEDICINE [address] [place] [address] 07/26/2025 7:30 AM EDT Appointment [facility] PER DI[facility] CTR [address] [place] [address] 08/09/2025 10:00 AM EDT Office Visit [facility] CARDIOLOGY [address] [place] [address] Seneri, Franchesca W, TIER LIFT OPERATOR [address] [place] [address] [place] [address] 08/19/2025 8:45 AM EDT Office Visit [facility] PRIMARY CARE [address] [place] [address] Mingo Limon MD [address] [place] [address] Health Maintenance Due Date Last Done Comments [...] Procedure Name Priority Date/Time Associated Diagnosis Comments [facility] Routine 06/27/2025 11:29 AM EDT Bicornuate uterus SCANNED - LABS 06/16/2025 SCANNED - IMAGING 06/16/2025 SCANNED - LABS 06/10/2025 [facility] Routine 05/23/2025 11:41 AM EDT Bicornuate [...] Recently Relevant to Health Maintenance Results * [facility] [place] (06/27/2025 11:29 AM EDT) Only the most recent of2 resultswithin the time period is included. Anatomical Region Laterality Modality Ultrasound 06/27/2025 11:1 7 AM EDT Narrative 07/02/2025 8:14 PM EDT PAT NAME: KARMEN BRAVO MED REC#: [id number] DA: [id number] PAT GEND: F PAT TYPE: O EXAM RO: [id number] REF PHYS MILTON PUENTES Comparison Studies The [...] EFW (oz) 12 oz EFW by: Hadlock ([id number]) Extended Cav. septi pel. tr 6.9 mm [...] Normal Heart / Thorax 3-vessel view: Normal 5-nwwntk-rszynbs view: normal Stomach: Appears normal Kidneys: Appears normal Bladder: Appears normal Gender: male Wants to know gender: yes Impression ========= Cephalic S=D Normal appearing limited anatomy Normal fluid Recommendation FOllow up 4 weeks Coding ====== Description: 25940-46 Follow Up Money Manager: Myranda De La Torre RDMS Physician: Sarah George MD, FACOG Electronically signed by: Sarah George MD, FACOG at: 20:14 Procedure Note Sarah George MD - 07/02/2025 PAT NAME: KARMEN BRAVO MED REC#: [id number] DA: 2000 PAT GEND: F PAT TYPE: O EXAM RO: [id number] REF PHYS MILTON PUENTES Comparison Studies The findings of this study are compared to the prior ultrasound studydated 05/23/25 Patient Status Outpatient Indication ======== Gestational diabetes. Hx PPROM and PTD 32 wk. Morbid obesity BMI 40. Maternal Assessment Gzihrl130 cm Height (ft)4 ft Height (in)9 in Cugucz90 kg Weight (lb)188 lb BMI40.01 kg/m Method ======= Transabdominal ultrasound examination. View: Adequate view ========= Rasmussen . Number of fetuses: 1 Dating ====== Method of dating:based on stated CHANTE GA by prior [id number] w + 1 d CHANTE by prior assessment:09/18/2025 Ultrasound examination on:06/27/2025 GA by U/S based upon:AC, BPD, Femur, HC GA by U/S29 w + 1 d CHANTE by U/S:09/11/2025 Previous dating:based on stated CHANTE, selected on 05/23/2025 Agreed CHANTE of previous datin09/18/2025 Assigned:based on stated CHANTE, selected on 06/27/2025 Assigned GA28 w + 1 d Assigned CHANTE:09/18/2025 [id number] d Biometry Standard BPD74.3 mm 29w 6d 87% Hadlock OFD99.6 mm 32w 1d >99% Yocasta HC278.2 mm 30w 3d 86% Hadlock Cerebellum tr38.5 mm 31w 2d >99% Hill AC244.8 mm 28w 5d 61% Hadlock Femur51.4 mm 27w 3d 18% Hadlock Lzsjias79.3 mm 27w 6d 34% Yocasta HC / AC1.14 EFW1,245 g 28w 1d 53% Hadlock EFW (lb)2 lb EFW (oz)12 oz EFW by:Hadlock ([id number]-[id number]-FL) Extended Cav. septi pel. tr6.9 mm CM8.0 mm 82% Nicolaides Head / Face / Neck Cephalic index0.75 11% Nicolaides Extremities / Bony Struc FL / BPD0.69 FL / HC0.18 FL / AC0.21 Other Structures GFR147 bpm General Evaluation Cardiac activity present. FHR [...] LVOT view:Normal Heart / Thorax 3-vessel view:Normal 7-xhpapt-xrfzolw view:normal Stomach:Appears normal Kidneys:Appears normal Bladder:Appears normal Gender:male Wants to know gender:yes Impression ========= Cephalic S=D Normal appearing limited anatomy Normal fluid Recommendation FOllow up 4 weeks Coding ====== Description:55977-47 Follow Up Money Manager: Myranda De La Torre RDMS Physician: Sarah George MD, FACOG Electronically signed by: Sarah George MD, FACOG at: 0520:14 us Sarah George MD G US ORDERABLES Final Result * IMAGING SCANNED (06/16/2025) Only the most recent of2 resultswithin the time period is included. Anatomical Region Laterality Modality Radiographic Aurelia ging us Mingo Limon MD G DIAGNOSTIC IMAGING ORDERABLE S Final Result * LABS SCANNED (06/16/2025) Only the most recent of2 resultswithin the time period is included. Mingo Limon MD LAB BLOOD ORDERABLES Final Resul t * Urine Culture - Urine, Urine, Clean Catch (05/10/2025 1:49 PM EDT) Urine Culture Final report [facility] Result 1 Comment [facility] Comment: Mixed urogenital biju 10,000-25,000 colony forming units per mL Urine Urine specimen obtained by clean catch procedure / Unknown 05/10/2025 1:49 PM EDT 05/10/2025 Comment:Urine Release to [facility] Narrative [facility] - 05/12/2025 6:37 AM EDT Performed at: - [address] [id number] Shallot Cleaner: Dagoberto Campbell PhD, Phone: [phone] Mingo Limon MD MICROBIOLOGY - GENERAL ORDERABLE S Final Result [facility] [address] [place] [address], [facility] [address] [place] [address], * (ABNORMAL) POC Urinalysis Dipstick (05/10/2025 1:38 PM EDT) Color Dark Yellow Yellow, Straw, Dark Yellow, Char [facility] Clarity, UA Cloudy(A) Clear [facility] Glucose, UA Negative Negative mg/dL [facility] Bilirubin Negative Negative [facility] Ketones, UA Negative Negative [facility] Specific [place] 1.010 1.005 - 1.030 [facility] Blood, UA Negative Negative [facility] pH, Urine 8.0 5.0 - 8.0 [facility] Protein, POC Negative Negative mg/dL [facility] Urobilinogen, UA Normal Normal, 0.2 E.U./dL [facility] Leukocytes Large (3+)(A) Negative [facility] Nitrite, UA Negative Negative [facility] Urine 05/10/2025 1:38 PM EDT Mingo Limon MD POINT OF CARE TEST ORDERABLES Fi nal Result [facility]
[address] [place] [address], * LIQUID-BASED PAP SMEAR WITH HPV GENOTYPING IF ASCUS (GEENA,COR,MAD) (08/27/2024 9:58 AM EDT) Reference Lab Report [facility] [address] [place] [address] or [phone] Masood Herron M.D., Telehealth Coordinator PATIENT NAME LABORATORY NO. [id number] KARMEN BRAVO [id number] AGE SEX SSN CLIENT REF # [facility] 22 2000 F [id number] Anuradha RENDON REQUESTING Joe [place] [address] CECILIA CONTRERAS DATE COLLECTED DATE RECEIVED DATE [...] of chlamydial and gonococcal disease using the [place] system. WELFARE AIDE: JOSHUA OSORIO (ASCP) CPT CODES: [id number], [id number], [id number] 09/04/2024 10:12 AM EDT [facility] ThinPrep Vial Cervix uteri structure / Unknown Collection / Unknown 08/27/2024 9:58 AM EDT 08/27/2024 9:58 AM EDT Cecilia Contreras TIER LIFT OPERATOR PATHOLOGY/CYTOLOGY ORDERA BLES Final Result [facility]
[address] [place] [address], [place] [phone] * (ABNORMAL) Lipid Panel (05/21/2024 12:34 PM [...] 05/21/2024 Comment:Blood Manual Differe n Narrative [facility] (AMBULATORY) - 05/22/2024 8:10 AM EDT Performed at: 01 - [address] [id number] Shallot Cleaner: Dagoberto Campbell PhD, Phone: [phone] Mingo Limon MD LAB BLOOD ORDERABLES Final Resul t [facility] (AMBULATORY) [address] [place] [address], [place] [phone] [facility] [address] [place] [address], [place] [phone] from Last 3 Months or Most Recently Relevant to Health Maintenance Insurance [facility] [place] Care Teams Regional Branch Manager Relationship Specialty Start Date End Date Mingo Limon MD [address] [place] [address] [place] [address] PCP - General Internal Medicine 07/30/22
--- OUTSIDE RECORDS SUMMARY | 2025-07-05 16:25 | XMS_ITS | Encounter Summary ---
Author Organization [facility] Address [address] [place] [address] Care Team Providers Care Adult Health Clinical Nurse Specialist Name Role Phone Mingo Limon MD Primary Care Provider [phone] Encounter Details Date Type Department Care Team (Latest Contact Info) Description 07/01/2025 Travel Social History Tobacco Use Types Packs/Day [...] EDT Office Visit [facility] MATERNAL MEDICINE [address] [place] [address] 07/26/2025 7:30 AM EDT Appointment [facility] US PER DIAG CTR [address] [place] [address] 08/09/2025 10:00 AM EDT Office Visit [facility] CARDIOLOGY [address] [place] [address] Franchesca Sullivan, CONTRACTING SPECIALIST [address] [place] [address] [place] [address] 08/19/2025 8:45 AM EDT Office Visit [facility] PRIMARY CARE [address] [place] [address] Mingo Limon MD [address] [place] [address] documented as of this encounter Visit Diagnoses Not on filedocumented in this encounter Care Teams Adult Health Clinical Nurse Specialist Relationship Specialty Start Date End Date Mingo Limon MD [address] [place] [address] PCP - General Internal Medicine 07/30/22 documented as of this encounter
--- OUTSIDE RECORDS SUMMARY | 2025-07-05 16:25 | XMS_ITS | Encounter Summary ---
Author Organization [facility] Address [address] [place] [address] Care Team Providers Care Demo Event Specialist Name Role Phone Mingo Limon MD Primary Care Provider [phone] Encounter Details Date Type Department Care Team [...] Description 07/26/2025 7:30 AM EDT Office Visit [facility] MATERNAL MEDICINE [address] [place] [address] 07/26/2025 7:30 AM EDT Appointment [facility] US PER DIAG CTR [address] [place] [address] 08/09/2025 10:00 AM EDT Office Visit [facility] CARDI[facility] [address] [place] [address] Franchesca Sullivan, INFECTIOUS WASTE TECHNICIAN [address] [place] [address] [place] [address] 08/19/2025 8:45 AM EDT Office Visit [facility] PR[facility]ARE [address] [place] [address] Mingo Limon MD [address] [place] [address] documented as of this encounter Visit Diagnoses Not on filedocumented in this encounter Care Teams Demo Event Specialist Relationship Specialty Start Date End Date Mingo Limon MD [address] [place] [address] PCP - General Internal Medicine 07/30/22 documented as of this encounter
--- OUTSIDE RECORDS SUMMARY | 2025-07-05 16:25 | XMS_ITS | Encounter Summary ---
Author Organization [facility] Address [address] [address] Care Team Providers Care Kettle Coordinator Name Role Phone Mingo Limon MD Primary Care Provider [phone] Encounter Details Date Type Department Care Team (Late st Contact Info) Description 05/13/2025 Results Follow-Up [facility] PRIMARY CARE [address] [place] [address] Mingo Limon MD [address] [place] [address] Social History Tobacco Use Types Packs/Day Years [...] [facility] MATERNAL MEDICINE [address] [place] [address] 07/26/2025 7:30 AM EDT Appointment [facility] US PER DIAG CTR [address] [place] [address] 08/09/2025 10:00 AM EDT Office Visit [facility] CARDIOLOGY [address] [place] [address] Franchesca Sullivan, CNC FIELD SERVICE ENGINEER [address] [place] [address] [place] [address] 08/19/2025 8:45 AM EDT Office Visit [facility] PRIMARY CARE [address] [place] [address] Mingo Limon MD [address] [place] [address] [place] [address] documented as of this encounter Visit Diagnoses Not on filedocumented in this encounter Care Teams Kettle Coordinator Relationship Specialty Start Date End Date Mingo Limon MD [address] [place] [address] [place] [address] PCP - General Internal Medicine 07/30/22 documented as of this encounter
--- OUTSIDE RECORDS SUMMARY | 2025-07-05 16:25 | XMS_ITS | Encounter Summary ---
Author Organization [facility] Address [address] [place] [address] Care Team Providers Care Tower Equipment Installer Name Role Phone Mingo Limon MD Primary Care Provider [phone] Encounter Details Date Type Department Care Team [...] Description 07/26/2025 7:30 AM EDT Office Visit [facility] MATERNAL MEDICINE [address] [place] [address] 07/26/2025 7:30 AM EDT Appointment [facility] US PER DIAG CTR [address] [place] [address] 08/09/2025 10:00 AM EDT Office Visit [facility] CARDIOLOGY [address] [place] [address] Franchesca Sullivan, WASH BARREL LEADER [address] [place] [address] 08/19/2025 8:45 AM EDT Office Visit [facility] PRIMARY CARE [address] [place] [address] [place] [address] Mingo Limon MD [address] [place] [address] [place] [address] documented as of this encounter Visit Diagnoses Not on filedocumented in this encounter Care Teams Tower Equipment Installer Relationship Specialty Start Date End Date Mingo Limon MD [address] [place] [address] [place] [address] PCP - General Internal Medicine 07/30/22 documented as of this encounter
--- OUTSIDE RECORDS SUMMARY | 2025-07-05 16:25 | XMS_ITS | Encounter Summary ---
Author Organization [facility] Address [address] [place] [address] Care Team Providers Care Turn Machine Operator Name Role Phone Mingo Limon MD Primary Care Provider [phone] Encounter Details Date Type Department Care Team (Late st Contact Info) Description 07/03/2025 Medication Therapy Management [facility] MATERNAL MEDICINE [address] [phone] Daija Murray MD [address] [place] [address] Social History Tobacco Use Types Packs/Day Years [...] Description 07/26/2025 7:30 AM EDT Office Visit [facility] MATERNAL MEDICINE [address] [place] [address] 07/26/2025 7:30 AM EDT Appointment [facility] US PER DIAG CTR [address] [place] [address] 08/09/2025 10:00 AM EDT Office Visit [facility] CARDIOLOGY [address] [address] SeFranchesca he W, FUNCTIONAL ANALYST [address] [place] [address] 08/19/2025 8:45 AM EDT Office Visit [facility] PRIMARY CARE [address] [place] [address] Mingo Limon MD [address] [place] [address] [place] [address] documented as of this encounter Visit Diagnoses Not on filedocumented in this encounter Care Teams Turn Machine Operator Relationship Specialty Start Date End Date Mingo Limon MD [address] [place] [address] [place] [address] PCP - General Internal Medicine 07/30/22 documented as of this encounter
[2025-07-05 17:00] VITALS: BP 117/56; PULSE 127; RESP 18; TEMP 37.2; O2SAT 95; BMI 38.0
== END 2025-07-05 17:19 | disposition home or self-care (01) ==
LOC: OBOUT 16:23 → OB 16:24
PROVIDERS: PCP Pediatrics; Visit Provider Obstetrics & Gynecology
DX: O36.8130 Decreased fetal movements, third trimester, not applicable or unspecified (principal); Z3A.29 29 weeks gestation of pregnancy
CPT/HCPCS: 59025; 99212; G0463

== ENCOUNTER 2025-07-15 14:34 | Outpatient (CLI) | payer OTHER, SELFPAY ==
--- OUTSIDE RECORDS SUMMARY | 2025-05-23 10:06 | XMS_ITS | Encounter Summary ---
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, antepartum History of delivery, currently Tachycardia History of gestational diabetes in prior , currently , unspecified gestational age Encounter for repeat ultrasound of pyelectasis, antepartum, not applicable or unspecified fetus Procedures [facility] Milton Puentes MD [facility] [address] [address] Phone: tel: fax: [facility] US PER DIAG CTR [address] [place] [address] Phone: tel: Referral ID Status Reason Start Date Expiration Date Visits Re quested Visits Authorized [id number] Closed 05/02/2025 08/01/2026 1 1 Reason for [...] not applicable or unspecified fetus Procedures US [facility] Milton Puentes MD [address] [place] [address] [address] Phone: tel: fax: [facility] US PER DIAG CTR [address] [place] [address] Phone: tel: Referral ID Status Reason Start Date Expiration Date Visits Re quested Visits Authorized [id number] Closed 05/02/2025 08/01/2026 1 1 Encounter Details Date Type Department Care Team (Latest Contact Info) Description 05/23/2025 10:06 AM EDT - 05/23/2025 11:59 PM EDT Hospital Encounter [facility] US PER DIAG CTR [address] [place] [phone] Milton Puentes MD [address] [place] [address] 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, antepartum; [...] Description 07/26/2025 7:30 AM EDT Office Visit [facility] MATERNAL MEDICINE [address] [place] [address] 07/26/2025 7:30 AM EDT Appointment [facility] US PER DIAG CTR [address] [place] [address] 08/09/2025 10:00 AM EDT Office Visit [facility] CARDIOLOGY [address] [place] [address] Franchesca Sullivan, NIRAV [address] [place] [address] [place] [address] 08/19/2025 8:45 AM EDT Office Visit [facility] PRIMARY CARE [address] [place] [address] Mingo Limon MD [address] [place] [address] [place] [address] documented as of this encounter Procedures Procedure Name Priority Date/Time Associated Diagnosis Comments US [facility] Routine 05/23/2025 11:41 AM EDT 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, antepartum History of delivery, currently Tachycardia History of gestational diabetes in prior , currently , unspecified gestational age Encounter for repeat ultrasound of pyelectasis, antepartum, not applicable or unspecified fetus documented in this encounter Results * [facility] (05/23/2025 11:41 AM EDT) Anatomical Region Laterality Modality Ultrasound 05/23/2025 10:5 2 AM EDT Narrative 05/23/2025 11:50 AM EDT PAT NAME: KARMEN GU MED REC#: [id number] DA: 2000 PAT GEND: F PAT TYPE: O EXAM RO: [id number] REF PHYS MILTON PUENTES Comparison Studies There [...] EFW (oz) 5 oz EFW by: Hadlock (JST-RA-SH-FL) Extended Tibia 34.7 mm 23w 0d 40% Yocasta Fibula 33.3 mm 22w 1d 32% Yocasta Radius 33.5 mm 23w 5d 56% Yocasta Ulna 36.5 mm 24w 3d 69% Yocasta Cav. septi pel. tr 4.4 mm Realty Loan Specialist 3.4 mm CM 7.8 mm 94% Nicolaides [...] normal IVC: normal 3-vessel view: Appears normal 6-ddqfmh-agwrhaw view: Appears normal Rt lung: Appears normal [...] weeks GA for growth Coding ======= Description: 49802-08 Detailed Associate Professor Of Art: Jennifer Ruby RDMS Physician: Sarah George MD, FACOG Electronically signed by: Sarah George MD, FACOG at: 11:50 Procedure Note Sarah George MD - 05/23/2025 PAT NAME: KARMEN GU MED REC#: [id number] DA: 2000 PAT GEND: F PAT TYPE: O EXAM RO: [id number] REF PHYS MILTON PUENTES Comparison Studies There are no relevant prior studies to which this study is beingcompared Patient Status Outpatient Indication ======== Concern for bilateral UTD. Bicornuate uterus. Previous PROM/PTD @32 wks Maternal Assessment Ligsbj148 cm Height (ft)4 ft Height (in)9 in Gwrihe38 kg Weight (lb)193 lb BMI41.07 kg/m Method ======= Transabdominal ultrasound examination. View: Limited by patient bodyhabitus ========= Rasmussen . Number of fetuses: 1 Dating ====== Method of dating:based on stated CHANTE GA by prior wlvkkdroeo26 w + 1 d CHANTE by prior assessment:09/18/2025 Ultrasound examination on:05/23/2025 GA by U/S based upon:AC, BPD, Femur, HC GA by U/S23 w + 0 d CHANTE by U/S:09/19/2025 Assigned:based on stated CHANTE, selected on 05/23/2025 Assigned GA23 w + 1 d Assigned CHANTE:09/18/2025 aciovn551 d Biometry Standard BPD53.0 mm 22w 1d 12% Hadlock OFD77.9 mm 25w 3d 98% Yocasta HC212.4 mm 23w 2d 41% Hadlock Cerebellum tr25.7 mm 23w 1d 82% Hill AC197.3 mm 24w 3d 80% Hadlock Femur38.4 mm 22w 2d 15% Hadlock Svuvwfr02.0 mm 24w 2d 76% Yocasta HC / AC1.08 WHC239 g 23w 2d 54% Hadlock EFW (lb)1 lb EFW (oz)5 oz EFW by:Hadlock (CIC-QA-IJ-FL) Extended Tibia34.7 mm 23w 0d 40% Yocasta Qnqetz37.3 mm 22w 1d 32% Yocasta Ebjnrc61.5 mm 23w 5d 56% Yocasta Ulna36.5 mm 24w 3d 69% Yocasta Cav. septi pel. tr4.4 mm Vp3.4 mm CM7.8 mm 94% Nicolaides Nasal bone8.8 mm Rt Renal pelvis ap4.3 mm Lt Renal pelvis ap3.2 mm Head / Face / Neck Cephalic index0.68 <1% Nicolaides Extremities / Bony Struc FL / BPD0.72 FL / HC0.18 FL / AC0.19 Other Structures FXD337 bpm General Evaluation Cardiac activity present. FHR [...] view:Appears normal SVC:normal IVC:normal 3-vessel view:Appears normal 9-uhnrej-xezzedk view:Appears normal Rt lung:Appears normal Lt lung:normal [...] of uterine malformations:bicornuate uterus Cervix:Visualized Approach:Transabdominal Cervical xyadhe96.0 mm Ovaries / Tubes / Adnexa Rt ovary:Visualized Lt ovary:Visualized Impression Today's exam reveals a SIUP with biometry consistent with dates. Mildunilateral renal pelvic dilation. Otherwise anatomic survey appearsnormal. Fluid is normal. The placenta is anterior, high. The TA cervical length appears adequate Recommendation Follow up 32 weeks GA for growth Coding ======= Description:83420-69 Detailed Associate Professor Of Art: Jennifer Ruby RDMS Physician: Sarah George MD, FACOG Electronically signed by: Sarah George MD, FACOG at: 1:50 us Milton Puentes MD [facility] US ORDERABLES Final Resul t documented in [...] fetus documented in this encounter Care Teams Screw Eye Assembler Relationship Specialty Start Date End Date Mingo Limon MD [address] [place] [address] [place] [address] PCP - General Internal Medicine 07/30/22 documented as of this encounter
--- OUTSIDE RECORDS SUMMARY | 2025-05-23 10:30 | XMS_ITS | Encounter Summary ---
Author Organization [facility] Address [address] [place] [address] Care Team Providers Care Parachute Folder Name Role Phone Mingo Limon MD Primary Care Provider [phone] Reason for Referral * Diagnostic Imaging (Routine) - Closed Specialty Diagnoses / Procedures Referred By Contac t Referred To Contact Radiology Diagnoses Bicornuate uterus Procedures [facility] Sarah George MD [address] [facility] [address] [place] [address] Phone: tel: fax: [facility] [address] [place] [address] Phone: tel: Referral ID Status Reason Start Date Expiration Date Visits Re quested Visits Authorized [id number] Closed 05/23/2025 08/22/2026 1 1 Reason for Visit * Reason Comments bicornuate uterus; hx PTD (31 wk); hx GD M; mat. tachycardia Encounter Details Date Type Department Care Team (Late st Contact Info) Description 05/23/2025 10:30 AM EDT Office Visit [facility] MATERNAL MEDICINE [address] [facility] [address] [place] [address] Sarah George MD [address] [facility] [address] [place] [address] Bicornuate uterus (Primary Dx) Social History Tobacco Use Types Packs/Day Years [...] Sign Reading Time Taken Comments Blood Pressure 99/53 05/23/2025 10:42 AM EDT Pulse - - Temperature - - Respiratory Rate - - Oxygen Saturation - - Inhaled Oxygen Concentration - - Weight 87.4 kg (192 lb 9.6 oz) 05/23/2025 10:42 AM EDT Height - - Body Mass Index 40.27 05/10/2025 1:13 PM EDT documented in this encounter Progress Notes * Cherelle Gabriel RN - 05/23/2025 10:30 AM EDT Patient denies any leaking of fluid or vaginal bleeding. She reports sporadic leonard gonzales contractions, not consistent. NIPT low risk. Patient reports next follow-up appointment with Dr. Puentes's office is 05/30. * Sarah George MD - 05/23/2025 10:30 AM EDT Patient seen in Diagnostic Center today for ultrasound. Please see ultrasound report under imaging tab of patient chart in [facility] (Viewpoint report). Sarah George MD documented in this encounter Plan of Treatment Upcoming Encounters Date Type Department Care Team (Late st Contact Info) Description 07/26/2025 7:30 AM EDT Office Visit [facility] MATERNAL MEDICINE [address] [place] [address] 07/26/2025 7:30 AM EDT Appointment [facility] [address] [place] [address] 08/09/2025 10:00 AM EDT Office Visit [facility] CARDIOLOGY [address] [place] [address] Franchesca Sullivan, SPINDLE REPAIRER [address] [place] [address] [place] [address] 08/19/2025 8:45 AM EDT Office Visit [facility] PRIMARY CARE [address] [place] [address] Mingo Limon MD [address] [place] [address] [place] [address] documented as of this encounter Results * [facility] (06/27/2025 11:29 AM EDT) Anatomical Region Laterality Modality Ultrasound 06/27/2025 11:1 7 AM EDT Narrative 07/02/2025 8:14 PM EDT PAT NAME: KARMEN GU MED REC#: [id number] DA: [id number] PAT GEND: F PAT TYPE: O EXAM RO: [id number] REF PHYS MILTON PUENTES Comparison Studies The findings of this study are compared to the prior ultrasound study dated 05/23/25 Patient Status Outpatient Indication ======== Gestational diabetes. Hx PPROM and PTD 32 wk. Morbid obesity BMI 40. Maternal Assessment Height 146 cm Height (ft) 4 ft Height (in) 9 in Weight 85 kg Weight (lb) 188 lb BMI 40.01 kg/m Method ======= Transabdominal ultrasound examination. View: Adequate view ========= Rasmussen . Number of fetuses: 1 Dating ====== Method of dating: based on stated CHANTE GA by prior assessment 28 w + 1 d CHANTE by prior assessment: 09/18/2025 Ultrasound examination on: 06/27/2025 GA by U/S based upon: AC, BPD, Femur, HC GA by U/S 29 w + 1 d CHANTE by U/S: 09/11/2025 Previous dating: based on stated CHANTE, selected on 05/23/2025 Agreed CHANTE of previous datin09/18/2025 Assigned: based on stated CHANTE, selected on 06/27/2025 Assigned GA 28 w + 1 d Assigned CHANTE: 09/18/2025 length 280 d Biometry Standard BPD 74.3 mm 29w 6d 87% Hadlock OFD 99.6 mm 32w 1d >99% Yocasta HC 278.2 mm 30w 3d 86% Hadlock Cerebellum tr 38.5 mm 31w 2d >99% Hill AC 244.8 mm 28w 5d 61% Hadlock Femur 51.4 mm 27w 3d 18% Hadlock Humerus 47.3 mm 27w 6d 34% Yocasta HC / AC 1.14 EFW 1,245 g 28w 1d 53% Hadlock EFW (lb) 2 lb EFW (oz) 12 oz EFW by: Hadlock ([id number]-[id number]-FL) Extended Cav. septi pel. tr 6.9 mm CM 8.0 mm 82% Nicolaides Head / Face / Neck Cephalic index 0.75 11% Nicolaides Extremities / Bony Struc FL / BPD 0.69 FL / HC 0.18 FL / AC 0.21 Other Structures FHR 151 bpm General Evaluation Cardiac activity present. FHR 151 bpm. movements present. Presentation cephalic. Placenta Placental site: anterior. Amniotic fluid Amount of AF: normal. MVP 6.2 cm. UMM 19.0 cm. Q1 4.8 cm, Q2 4.0 cm, Q3 4.0 cm, Q4 6.2 cm. Anatomy Cranium: Normal Cavum septi pellucidi: Normal Cerebellum: Normal Cisterna magna: Normal Head / Neck Rt lateral ventricle: Normal Lt lateral ventricle: Normal Lips: Normal Profile: Normal Nose: Normal 4-chamber view: Appears normal RVOT view: Normal LVOT view: Normal Heart / Thorax 3-vessel view: Normal 3-qbueud-nzxxbtk view: normal Stomach: Appears normal Kidneys: Appears normal Bladder: Appears normal Gender: male Wants to know gender: yes Impression ========= Cephalic S=D Normal appearing limited anatomy Normal fluid Recommendation FOllow up 4 weeks Coding ====== Description: 34371-84 Follow Up Varnish Thinner: Myranda De La Torre RDMS Physician: Sarah George MD, FACOG Electronically signed by: Sarah George MD, FACOG at: 20:14 Procedure Note Sarah George MD - 07/02/2025 PAT NAME: KARMEN GU MED REC#: [id number] DA: [id number] PAT GEND: F PAT TYPE: O EXAM RO: [id number] REF PHYS MILTON PUENTES Comparison Studies The findings of this study are compared to the prior ultrasound studydated 05/23/25 Patient Status Outpatient Indication ======== Gestational diabetes. Hx PPROM and PTD 32 wk. Morbid obesity BMI 40. Maternal Assessment Aljxel211 cm Height (ft)4 ft Height (in)9 in Coxwxp06 kg Weight (lb)188 lb BMI40.01 kg/m Method ======= Transabdominal ultrasound examination. View: Adequate view ========= Rasmussen . Number of fetuses: 1 Dating ====== Method of dating:based on stated CHANTE GA by prior [id number] w + 1 d CHANTE by prior assessment:09/18/2025 Ultrasound examination on:06/27/2025 GA by U/S based upon:AC, BPD, Femur, HC GA by U/S29 w + 1 d CHANTE by U/S:09/11/2025 Previous dating:based on stated CHANTE, selected on 05/23/2025 Agreed CHANTE of previous datin09/18/2025 Assigned:based on stated CHANTE, selected on 06/27/2025 Assigned GA28 w + 1 d Assigned CHANTE:09/18/2025 [id number] d Biometry Standard BPD74.3 mm 29w 6d 87% Hadlock OFD99.6 mm 32w 1d >99% Yocasta HC278.2 mm 30w 3d 86% Hadlock Cerebellum tr38.5 mm 31w 2d >99% Hill AC244.8 mm 28w 5d 61% Hadlock Femur51.4 mm 27w 3d 18% Hadlock Wokpipt21.3 mm 27w 6d 34% Yocasta HC / AC1.14 EFW1,245 g 28w 1d 53% Hadlock EFW (lb)2 lb EFW (oz)12 oz EFW by:Hadlock (TDT-[id number]-FL) Extended Cav. septi pel. tr6.9 mm CM8.0 mm 82% Nicolaides Head / Face / Neck Cephalic index0.75 11% Nicolaides Extremities / Bony Struc FL / BPD0.69 FL / HC0.18 FL / AC0.21 Other Structures VQE455 bpm General Evaluation Cardiac activity present. FHR 151 bpm. movements present. Presentation cephalic. Placenta Placental site: anterior. Amniotic fluid Amount of AF: normal. MVP 6.2 cm. UMM 19.0 cm. Q1 4.8 cm,Q2 4.0 cm, Q3 4.0 cm, Q4 6.2 cm. Anatomy Cranium:Normal Cavum septi pellucidi:Normal Cerebellum:Normal Cisterna magna:Normal Head / Neck Rt lateral ventricle:Normal Lt lateral ventricle:Normal Lips:Normal Profile:Normal Nose:Normal 4-chamber view:Appears normal RVOT view:Normal LVOT view:Normal Heart / Thorax 3-vessel view:Normal 7-zlbozi-ccpcwue view:normal Stomach:Appears normal Kidneys:Appears normal Bladder:Appears normal Gender:male Wants to know gender:yes Impression ========= Cephalic S=D Normal appearing limited anatomy Normal fluid Recommendation FOllow up 4 weeks Coding ====== Description:13485-97 Follow Up Varnish Thinner: Myranda De La Torre RDMS Physician: Sarah George MD, FACOG Electronically signed by: Sarah George MD, FACOG at: 20:14 us Sarah George MD IMG US ORDERABLES Final Result documented in this encounter Visit Diagnoses Diagnosis Bicornuate uterus- Primary Bicornuate uterus documented in this encounter Care Teams Parachute Folder Relationship Specialty Start Date End Date Mingo Limon MD [address] [place] [address] [place] [address] PCP - General Internal Medicine 07/30/22 documented as of this encounter
--- OUTSIDE RECORDS SUMMARY | 2025-06-13 13:00 | XMS_ITS | Encounter Summary ---
Author Organization [facility] Address [address] [place] [address] Care Team Providers Care Surg Physician Asst Name Role Phone Mingo Limon MD Primary Care Provider [phone] Reason for Visit * Reason Comments Med Refill Encounter Details Date Type Department Care Team (Late st Contact Info) Description 06/13/2025 1:00 PM EDT Office Visit [facility] [address] [place] [address] [place] [address] Mingo Limon MD [address] [place] [address] ADHD, predominantly inattentive type (Primary Dx); Anxiety [...] all of which were normal. Referred to [facility] cardiology who completed echo 06/14/2024 which was [...] , and recent testing through [facility] transmission superintendent reveals what appears to be a failed 1 hour 2-hour and 3-hour glucose challenge test, as such it appears she is progressing to a similar pattern. No current medications atthis time but keep regular follow-up with transmission superintendent. Of note she had been placed in [...] diagnosis by review of her history, with [place] forms showing the same. No comorbid sleep [...] with stability prefer to continue as per transmission superintendent. Of note we had transiently held ADHD [...] no SI/HI and handling her stressors appropriately. Child Care Associate has recommendedher to continue on the regimen [...] diagnosis by review of her history, with [place] forms showing the same. No comorbid sleep [...] with stability prefer to continue as per transmission superintendent. Of note we had transiently held ADHD [...] , and recent testing through [facility] transmission superintendent reveals what appears to be a failed 1 hour 2-hour and 3-hour glucose challenge test, as such it appears she is progressing to a similar pattern. No current medications atthis time but keep regular follow-up with transmission superintendent. Of note she had been placed in [...] all of which were normal. Referred to [facility]ology who completed echo 06/14/2024 which was [...] follow up, ADHD monitoring. Mingo Limon MD [facility] documented in this encounter Plan of Treatment Upcoming Encounters Date Type Department Care Team (Late st Contact Info) Description 07/26/2025 7:30 AM EDT Office Visit [facility] [address] [place] [address] 07/26/2025 7:30 AM EDT Appointment [facility] US PER DIAG CTR [address] [place] [address] 08/09/2025 10:00 AM EDT Office Visit [facility] [address] [address] Franchesca Sullivan, MANAGER PIPELINE [address] [place] [address] 08/19/2025 8:45 AM EDT Office Visit [facility] [address] [place] [address] Mingo Limon MD [address] [place] [address] documented as of this encounter Visit Diagnoses Diagnosis ADHD, predominantly inattentive type- Primary Attention deficit disorder without mention of hyperactivity Anxiety and depression Gestational diabetes mellitus (GDM) in second trimester controlled on oral hypoglycemic drug Mixed hyperlipidemia Palpitations documented in this encounter Care Teams Surg Physician Asst Relationship Specialty Start Date End Date Mingo Limon MD [address] [place] [address] PCP - General Internal Medicine 07/30/22 documented as of this encounter
--- OUTSIDE RECORDS SUMMARY | 2025-06-24 12:49 | XMS_ITS | Encounter Summary ---
Author Organization [facility] Address [address] [place] [address] Care Team Providers Care Feeder/Folder Name Role Phone Mingo Limon MD Primary Care Provider [phone] Encounter Details Date Type Department Care Team (Late st Contact Info) Description 06/24/2025 12:49 PM EDT - 06/24/2025 11:59 PM EDT Hospital Encounter [facility] DIABETES ED [address] [place] [address] Juan Miguel Marie MD [address] [facility] [address] [place] [phone] Discharge Disposition: Home or Self Care Social [...] Description 07/26/2025 7:30 AM EDT Office Visit [facility] MATERNAL MEDICINE [address] [facility] [address] [place] [address] 07/26/2025 7:30 AM EDT Appointment [facility] US PER DIAG CTR [address] [place] [address] 08/09/2025 10:00 AM EDT Office Visit [facility] CARDIOLOGY [address] [place] [address] Franchesca Sullivan, SOLAR THERMAL TECHNICIAN [address] [place] [address] [place] [address] 08/19/2025 8:45 AM EDT Office Visit [facility] PRIMARY CARE [address] [place] [address] Mingo iLmon MD [address] [place] [address] [place] [address] documented as of this encounter Visit Diagnoses Not on filedocumented in this encounter Care Teams Feeder/Folder Relationship Specialty Start Date End Date Mingo Limon MD [address] [place] [address] [place] [address] PCP - General Internal Medicine 07/30/22 documented as of this encounter
--- OUTSIDE RECORDS SUMMARY | 2025-06-27 11:01 | XMS_ITS | Encounter Summary ---
Author Organization [facility] Address [address] [place] [address] Care Team Providers Care Hardware Technician Name Role Phone Mingo Limon MD Primary Care Provider [phone] Reason for Referral * Diagnostic Imaging (Routine) - Closed Specialty Diagnoses / Procedures Referred By Arlethac t Referred To Contact Radiology Diagnoses Bicornuate uterus Procedures [facility] Diagnostic [place] Sarah George MD [address] [address] Phone: tel: fax: [facility] US PER DIAG CTR [address] [place] [address] Phone: tel: Referral ID Status Reason Start Date Expiration Date Visits Re quested Visits Authorized [id number] Closed 05/23/2025 08/22/2026 1 1 Reason for Visit * Diagnostic Imaging (Routine) - Closed Specialty Diagnoses / Procedures Referred By Contac t Referred To Contact Radiology Diagnoses Bicornuate uterus Procedures [facility] Diagnostic [place] Sarah George MD [address] [address] Phone: tel: fax: [facility] US PER DIAG CTR [address] [place] [address] Phone: tel: Referral ID Status Reason Start Date Expiration Date Visits Re quested Visits Authorized [id number] Closed 05/23/2025 08/22/2026 1 1 Encounter Details Date Type Department Care Team (Late st Contact Info) Description 06/27/2025 11:01 AM EDT - 06/27/2025 11:59 PM EDT Hospital Encounter [facility] PER DIAG CTR [address] [place] [address] [facility] [address] [place] [address] Bicornuate uterus Discharge Disposition: Home [...] Description 07/26/2025 7:30 AM EDT Office Visit [facility] MATERNAL MEDICINE [address] [place] [address] 07/26/2025 7:30 AM EDT Appointment [facility] US PER DIAG CTR [address] [place] [address] 08/09/2025 10:00 AM EDT Office Visit [facility] CARDIOLOGY [address] [address] Franchesca he, CITRIX LEAD [address] [place] [address] [place] [address] 08/19/2025 8:45 AM EDT Office Visit [facility] PRIMARY CARE [address] [place] [address] [place] [address] Mingo Limon MD [address] [place] [address] [place] [address] documented as of this encounter Procedures Procedure Name Priority Date/Time Associated Diagnosis Comments [facility] Routine 06/27/2025 11:29 AM EDT Bicornuate uterus documented in this encounter Results * [facility] (06/27/2025 11:29 AM EDT) Anatomical Region Laterality Modality Ultrasound 06/27/2025 11:1 7 AM EDT Narrative 07/02/2025 8:14 PM EDT PAT NAME: KARMEN GU MED REC#: [id number] DA: [id number] PAT GEND: F PAT TYPE: O EXAM RO: [id number] REF PHYS [place] Comparison Studies The findings [...] EFW (oz) 12 oz EFW by: Hadlock ([id number]-[id number]-FL) Extended Cav. septi pel. tr 6.9 mm [...] Normal Heart / Thorax 3-vessel view: Normal 4-pjrtbc-hwiuwbx view: normal Stomach: Appears normal Kidneys: Appears normal Bladder: Appears normal Gender: male Wants to know gender: yes Impression ========= Cephalic S=D Normal appearing limited anatomy Normal fluid Recommendation FOllow up 4 weeks Coding ====== Description: 98358-65 Follow Up Sinker Winder: Myranda De La Torre RDMS Physician: Sarah George MD, FACOG Electronically signed by: Sarah George MD, FACOG at: 20:14 Procedure Note Sarah George MD - 07/02/2025 PAT NAME: KARMEN GU MED REC#: [id number] DA: [id number] PAT GEND: F PAT TYPE: O EXAM RO: [id number] REF PHYS MILTON PUENTES Comparison Studies The findings of this study are compared to the prior ultrasound studydated 05/23/25 Patient Status Outpatient Indication ======== Gestational diabetes. Hx PPROM and PTD 32 wk. Morbid obesity BMI 40. Maternal Assessment Nlgrhc283 cm Height (ft)4 ft Height (in)9 in Iqslpk80 kg Weight (lb)188 lb BMI40.01 kg/m Method ======= Transabdominal ultrasound examination. View: Adequate view ========= Rasmussen . Number of fetuses: 1 Dating ====== Method of dating:based on stated CHANTE GA by prior [id number] w + 1 d CHANTE by prior [...] Hadlock Femur51.4 mm 27w 3d 18% Hadlock Zpzvzah38.3 mm 27w 6d 34% Yocasta HC / AC1.14 EFW1,245 g 28w 1d 53% Hadlock EFW (lb)2 lb EFW (oz)12 oz EFW by:Hadlock ([id number]) Extended Cav. septi pel. tr6.9 mm CM8.0 mm 82% Nicolaides Head / Face / Neck Cephalic index0.75 11% Nicolaides Extremities / Bony Struc FL / BPD0.69 FL / HC0.18 FL / AC0.21 Other Structures GDA604 bpm General Evaluation Cardiac activity present. FHR [...] LVOT view:Normal Heart / Thorax 3-vessel view:Normal 6-dbytqk-wedbqvg view:normal Stomach:Appears normal Kidneys:Appears normal Bladder:Appears normal Gender:male Wants to know gender:yes Impression ========= Cephalic S=D Normal appearing limited anatomy Normal fluid Recommendation FOllow up 4 weeks Coding ====== Description:28165-43 Follow Up Sinker Winder: Myranda De La Torre RDMS Physician: Sarah George MD, FACOG Electronically signed by: Sarah George MD, FACOG at: 20:14 us Sarah George MD IMG US ORDERABLES Final Result documented in this encounter Visit Diagnoses Diagnosis Bicornuate uterus documented in this encounter Care Teams Hardware Technician Relationship Specialty Start Date End Date Mingo Limon MD [address] [place] [address] [place] [address] PCP - General Internal Medicine 07/30/22 documented as of this encounter
--- OUTSIDE RECORDS SUMMARY | 2025-06-27 11:15 | XMS_ITS | Encounter Summary ---
Author Organization [facility] Address [address] [place] [address] Care Team Providers Care Tank Refinisher Name Role Phone Mingo Limon MD Primary Care Provider [phone] Reason for Referral * Diagnostic Imaging (Routine) - Authorized Specialty Diagnoses / Procedures Referred By Arlethac t Referred To Contact Radiology Diagnoses Bicornuate uterus Diet controlled gestational diabetes mellitus (GDM) in third trimester Procedures [facility] Sarah George MD [address] [facility] [address] [place] [address] Phone: tel: fax: [facility] US PER DIAG CTR [address] [facility] [place] [address] Phone: tel: Referral ID Status Reason Start Date Expiration Date V isits Requested Visits Authorized Authorized 07/02/2025 10/01/2026 1 1 Reason for Visit * Reason Comments GDM, bicornate ut, hx 32 wk PTD, MO Encounter Details Date Type Department Care Team (Late st Contact Info) Description 06/27/2025 11:15 AM EDT Office Visit [facility] MATERNAL MEDICINE [address] [facility] [address] [place] [address] Sarah George MD [address] [facility] [address] [place] [address] Bicornuate uterus (Primary Dx); Diet controlled gestational [...] MD - 06/27/2025 1:14 PM EDTAssociated Problem(s): Diet controlled gestational diabetes [...] follow-up appointment with Dr. Ponce's office is 07/08. * Sarah George MD - 06/27/2025 11:15 AM EDT Patient seen in Diagnostic Center today for ultrasound. Please see ultrasound report under imaging tab of patient chart in [facility] (Viewpoint report). Sarah George MD documented in this encounter Plan of Treatment Upcoming Encounters Date Type Department Care Team (Late st Contact Info) Description 07/26/2025 7:30 AM EDT Office Visit [facility] MATERNAL MEDICINE [address] [facility] [address] [address] [place] [address] 07/26/2025 7:30 AM EDT Appointment [facility] PER DIAG CTR [address] [place] [address] 08/09/2025 10:00 AM EDT Office Visit [facility] CARDIOLOGY [address] [place] [address] Franchesca Sullivan, SMALL PRODUCTS II ASSEMBLER [address] [place] [address] 08/19/2025 8:45 AM EDT Office Visit [facility] PRIMARY CARE [address] [place] [address] [place] [address] Mingo Limon MD [address] [place] [address] [place] [address] Scheduled Orders Name Type Priority Associated Diagnoses Orde r Schedule [facility] Imaging Routine Bicornuate uterus Diet controlled gestational diabetes mellitus (GDM) in third trimester Expected: 07/30/2025, Expires: 07/02/2026 documented as of this encounter Visit Diagnoses Diagnosis Bicornuate uterus- Primary Diet controlled gestational diabetes mellitus (GDM) in third trimester documented in this encounter Care Teams Tank Refinisher Relationship Specialty Start Date End Date Mingo Limon MD [address] [place] [address] PCP - General Internal Medicine 07/30/22 documented as of this encounter
--- OUTSIDE RECORDS SUMMARY | 2025-07-01 11:45 | XMS_ITS | Encounter Summary ---
Author Organization [facility] Address [address] [place] [address] Care Team Providers Care Transformer Coil Winder Name Role Phone Mingo Limon MD Primary Care Provider [phone] Encounter Details Date Type Department Care Team (Latest Contact Info) Description 07/01/2025 11:45 AM EDT - 07/01/2025 11:59 PM EDT Hospital Encounter [facility] DIABETES ED [address] [facility] [address] [place] [address] Discharge Disposition: Home or Self [...] for assessment and notes if you use [employer]. If you are not an [employer] user a copy of patient's assessment and notes will be sent per routine. Thank you. Electronically signed by: Yelena De La Paz RN, [facility] 07/01/25 12:42 EDT documented in this encounter Plan of Treatment Upcoming Encounters Date Type Department Care Team (Late st Contact Info) Description 07/26/2025 7:30 AM EDT Office Visit [facility] MATERNAL MEDICINE [address] [facility] [address] [place] [address] 07/26/2025 7:30 AM EDT Appointment [facility] US PER DIAG CTR [address] [place] [address] 08/09/2025 10:00 AM EDT Office Visit [facility] CARDIOLOGY [address] [address] Franchesca Sullivan, FURNACE OPERATOR AND TENDER [address] [place] [address] 08/19/2025 8:45 AM EDT Office Visit [facility] PRIMARY CARE [address] [place] [address] Mingo Limon MD [address] [place] [address] [place] [address] documented as of this encounter Visit Diagnoses Not on filedocumented in this encounter Care Teams Transformer Coil Winder Relationship Specialty Start Date End Date Mingo Limon MD [address] [place], [place] [address] PCP - General Internal Medicine 07/30/22 documented as of this encounter
--- OUTSIDE RECORDS SUMMARY | 2025-07-15 14:38 | XMS_ITS | Patient Health Record ---
Author Organization [facility] Address [address] [address] Care Team Providers Care Urology Surgeon Name Role Phone SANDOR BLAKELY Unavailable [phone] Sandor Blakely MD Unavailable Unavailable Allergies No [...] W/U Status Risk Notes Problem Allergic rhinitis (74132288) Allergic rhinitis (J30.9) Active confirmed Plan Of Treatment No Information Insurance Providers Payer Name Payer Address Payer Phone Subscriber Number Group Number Insured Name Patient Relationship to Insured Coverage Start Date Coverage End Date [employer] MEDICA[employer] [address] [place] [address] [id number] [place] [employer] Self - patient is the insured Medical (General) History Medical History History ICD Code DEPRESSION AND ANXIETY Surgical History Surgery Date(Month/Year) WISDOM TEETH 2019
--- OUTSIDE RECORDS SUMMARY | 2025-07-15 14:38 | XMS_ITS | Encounter Summary ---
Author Organization [facility] Address [address] [place] [address] Care Team Providers Care Shingles Roofer Helper Name Role Phone Mingo Limon MD Primary Care Provider [phone] Encounter Details Date Type Department Care Team (Late st Contact Info) Description 05/16/2025 Telephone [facility] CARDIOLOGY [address] [place] [address] Franchesca Sullivan, UNIVERSITY RELATIONS VICE PRESIDENT [address] [place] [address] [place] [address] Social History Tobacco Use Types Packs/Day Years [...] patient. LVM to call back. Will send [employer] message. * Telephone Encounter - Ines Gonzales [...] Description 07/26/2025 7:30 AM EDT Office Visit [facility] MATERNAL MEDICINE [address] [place] [address] 07/26/2025 7:30 AM EDT Appointment [facility] US PER DIAG CTR [address] [place] [address] 08/09/2025 10:00 AM EDT Office Visit [facility] CARDIOLOGY [address] [place] [address] Franchesca Sullivan, UNIVERSITY RELATIONS VICE PRESIDENT [address] [place] [address] [place] [address] 08/19/2025 8:45 AM EDT Office Visit [facility] PRIMARY CARE [address] [address] Mingo Limon MD [address] [address] documented as of this encounter Visit Diagnoses Not on filedocumented in this encounter Care Teams Shingles Roofer Helper Relationship Specialty Start Date End Date Mingo Limon MD [address] [place] [address] PCP - General Internal Medicine 07/30/22 documented as of this encounter
--- OUTSIDE RECORDS SUMMARY | 2025-07-15 14:38 | XMS_ITS | Encounter Summary ---
Author Organization [facility] Address [address] [place] [address] Care Team Providers Care Editor Publications Name Role Phone Mingo Limon MD Primary Care Provider [phone] Encounter Details Date Type Department Care Team [...] 07/26/2025 7:30 AM EDT Office Visit [facility] MATERNAL MEDICINE [address] [place] [address] 07/26/2025 7:30 AM EDT Appointment [facility] US PER DIAG CTR [address] [place] [address] 08/09/2025 10:00 AM EDT Office Visit [facility] CARDIOLOGY [address] [address] Franchesca Sullivan, PROGRAMMABLE LOGIC CONTROLLER ASSEMBLER [address] [place] [address] [place] [address] 08/19/2025 8:45 AM EDT Office Visit [facility] PRIMARY CARE [address] [place] [address] Mingo Limon MD [address] [place] [address] documented as of this encounter Visit Diagnoses Not on filedocumented in this encounter Care Teams Editor Publications Relationship Specialty Start Date End Date Mingo Limon MD [address] [place] [address] PCP - General Internal Medicine 07/30/22 documented as of this encounter
--- OUTSIDE RECORDS SUMMARY | 2025-07-15 14:38 | XMS_ITS | Encounter Summary ---
Author Organization [facility] Address [address] [place] [address] Care Team Providers Care K 12 Principal Name Role Phone Mingo Limon MD Primary Care Provider [phone] Encounter Details Date Type Department Care Team [...] Description 07/26/2025 7:30 AM EDT Office Visit [facility] MATERNAL MEDICINE [address] [place] [address] 07/26/2025 7:30 AM EDT Appointment [facility] US PER DIAG [facility] [address] [place] [address] 08/09/2025 10:00 AM EDT Office Visit [facility] CARDIOLOGY [address] [address] Franchesca Sullivan, BREAD MOLDER [address] [place] [address] [place] [address] 08/19/2025 8:45 AM EDT Office Visit [facility] PRIMARY CARE [address] [place] [address] Mingo Limon MD [address] [place] [address] documented as of this encounter Visit Diagnoses Not on filedocumented in this encounter Care Teams K 12 Principal Relationship Specialty Start Date End Date Mingo Limon MD [address] [place] [address] PCP - General Internal Medicine 07/30/22 documented as of this encounter
--- OUTSIDE RECORDS SUMMARY | 2025-07-15 14:38 | XMS_ITS | Encounter Summary ---
Author Organization [facility] Address [address] [place] [address] Care Team Providers Care Pipeline Construction Inspector Name Role Phone Mingo Limon MD Primary Care Provider [phone] Encounter Details Date Type Department Care Team [...] Description 07/26/2025 7:30 AM EDT Office Visit [facility] MATERNAL MEDICINE [address] [place] [address] 07/26/2025 7:30 AM EDT Appointment [facility] [address] [place] [address] 08/09/2025 10:00 AM EDT Office Visit [facility] CARDIOLOGY [address] [address] Farnchesca Sullivan, FRUIT GRADER OPERATOR [address] [place] [address] [place] [address] 08/19/2025 8:45 AM EDT Office Visit [facility] PRIMARY CARE [address] [place] [address] [address] [address] Mingo Limon MD [address] [place] [address] [place] [address] documented as of this encounter Visit Diagnoses Not on filedocumented in this encounter Care Teams Pipeline Construction Inspector Relationship Specialty Start Date End Date Mingo Limon MD [address] [place] [address] [place] [address] PCP - General Internal Medicine 07/30/22 documented as of this encounter
--- OUTSIDE RECORDS SUMMARY | 2025-07-15 14:38 | XMS_ITS | Encounter Summary ---
Author Organization [facility] Address [address] [place] [address] Care Team Providers Care Larder Cook Name Role Phone iMngo Limon MD Primary Care Provider [phone] Reason for Visit * Reason Onset Date Comments FRANCHESCA BADILLO 05/08/2025 Encounter Details Date Type Department Care Team (Late st Contact Info) Description 05/08/2025 Telephone [facility] CARDIOLOGY [address] [place] [address] Franchesca Hare, COST ESTIMATOR [address] [place] [address] [place] [address] FRANCHESCA HARE-LUIS Social History Tobacco Use Types [...] to patient: Self Best call back number: [phone] Chief complaint: Type of visit: FOLLOW UP [...] 07/26/2025 7:30 AM EDT Office Visit [facility] MATERNAL MEDICINE [address] [facility] [address] [place] [address] 07/26/2025 7:30 AM EDT Appointment [facility] US PER DIAG CTR [address] [place] [address] 08/09/2025 10:00 AM EDT Office Visit [facility] CARDIOLOGY [address] [address] Franchesca Hare W, COST ESTIMATOR [address] [place] [address] 08/19/2025 8:45 AM EDT Office Visit [facility] PRIMARY CARE [address] [place] [address] [facility] [place] [address] documented as of this encounter Visit Diagnoses Not on filedocumented in this encounter Care Teams Larder Cook Relationship Specialty Start Date End Date Mingo Limon MD [address] [place] [address] [address] [address] PCP - General Internal Medicine 07/30/22 documented as of this encounter
--- OUTSIDE RECORDS SUMMARY | 2025-07-15 14:38 | XMS_ITS | Encounter Summary ---
Author Organization [facility] Address [address] [place] [address] Care Team Providers Care Claims Adjuster Name Role Phone Mingo Limon MD Primary Care Provider [phone] Encounter Details Date Type Department Care Team (Late st Contact Info) Description 06/27/2025 Documentation [facility] MATERNAL MEDICINE [address] [facility] [address] [place] [address] Vira Paniagua, RN Social History [...] use vitaliy. Patient is to notify through [employer] once she has entered in our clinic code and is agreeable to keep blood sugar log until she has received confirmation from us that we can see her data. Vira Paniagua RN documented in this encounter Plan of Treatment Upcoming Encounters Date Type Department Care Team (Late st Contact Info) Description 07/26/2025 7:30 AM EDT Office Visit [facility] MATERNAL MEDICINE [address] [facility] [address] [place] [address] 07/26/2025 7:30 AM EDT Appointment [facility] US PER DIAG CTR [address] [place] [address] 08/09/2025 10:00 AM EDT Office Visit [facility] CARDIOLOGY [address] [address] Franchesca Sullivan, COLLATING MACHINE OPERATOR [address] [place] [address] 08/19/2025 8:45 AM EDT Office Visit [facility] PRIMARY CARE [address] [place] [address] [address] [address] [address] Mingo Limon MD [address] [place] [address] [address] [address] documented as of this encounter Visit Diagnoses Not on filedocumented in this encounter Care Teams Claims Adjuster Relationship Specialty Start Date End Date Mingo Limon MD [address] [place] [address] PCP - General Internal Medicine 07/30/22 documented as of this encounter
--- OUTSIDE RECORDS SUMMARY | 2025-07-15 14:38 | XMS_ITS | Encounter Summary ---
Author Organization [facility] Address [address] [place] [address] Care Team Providers Care Draw Fire Operator Name Role Phone Mingo Limon MD Primary Care Provider [phone] Encounter Details Date Type Department Care Team (Late st Contact Info) Description 07/03/2025 Medication Therapy Management [facility] MATERNAL MEDICINE [address] [phone] Daija Murray MD [address] [place] [address] Social History Tobacco Use Types Packs/Day Years [...] Description 07/26/2025 7:30 AM EDT Office Visit [facility] MATERNAL MEDICINE [address] [place] [address] 07/26/2025 7:30 AM EDT Appointment [facility] US PER DIAG CTR [address] [place] [address] 08/09/2025 10:00 AM EDT Office Visit [facility] CARDIOLOGY [address] [address] SeFranchesca he W, SAP BI DEVELOPER [address] [place] [address] 08/19/2025 8:45 AM EDT Office Visit [facility] PRIMARY CARE [address] [place] [address] Mingo Limon MD [address] [place] [address] [place] [address] documented as of this encounter Visit Diagnoses Not on filedocumented in this encounter Care Teams Draw Fire Operator Relationship Specialty Start Date End Date Mingo Limon MD [address] [place] [address] [place] [address] PCP - General Internal Medicine 07/30/22 documented as of this encounter
--- OUTSIDE RECORDS SUMMARY | 2025-07-15 14:38 | XMS_ITS | Encounter Summary ---
Author Organization [facility] Address [address] [place] [address] Care Team Providers Care Solution Mixer Name Role Phone Mingo Limon MD Primary Care Provider [phone] Encounter Details Date Type Department Care Team [...] [facility] MATERNAL MEDICINE [address] [place] [address] 07/26/2025 7:30 AM EDT Appointment [facility] US PER DIAG CTR [address] [place] [address] 08/09/2025 10:00 AM EDT Office Visit [facility] CARDIOLOGY [address] [address] Franchesca Sullivan, COMMUNITY HEALTH EDUCATION COORDINATOR [address] [place] [address] [place] [address] 08/19/2025 8:45 AM EDT Office Visit [facility] PRIMARY CARE [address] [place] [address] [place] [address] Mingo Limon MD [address] [place] [address] [place] [address] documented as of this encounter Visit Diagnoses Not on filedocumented in this encounter Care Teams Solution Mixer Relationship Specialty Start Date End Date Mingo Limon MD [address] [place] [address] [place] [address] PCP - General Internal Medicine 07/30/22 documented as of this encounter
--- OUTSIDE RECORDS SUMMARY | 2025-07-15 14:38 | XMS_ITS | Clinical Summary ---
Author Organization [facility] Address [address] [place] [address] Care Team Providers Care Visual Effects Editor Name Role Phone Mingo Limon MD Primary Care Provider [phone] Allergies No known active allergies Medications fluticasone (FLONASE) 50 MCG/ACT nasal sprayIndications :Seasonal allergic rhinitis due to pollen 2 sprays into the nostril(s) as directed by provider Daily. 15.8 mL 3 03/01/20 24 Active montelukast (Singulair) 10 MG tabletIndication s:Seasonal allergic rhinitis due to pollen Take 1 tablet by mouth Every Night. 30 tablet 3 03/01/20 24 Active Additional Information Patient taking differently:10 mg OralAs Needed, Reported on 06/27/2025 Allergy Relief 10 MG tabletIndication s:Seasonal allergic rhinitis due to pollen Take 1 tablet by mouth Daily. 30 tablet 3 07/31/20 24 Active Additional Information Patient taking differently:10 mg OralAs Needed, Patient reports Claritin, Reported on 06/27/2025 Vit-Fe Fumarate-FA ( vitamin 27-0.8) 27-0.8 MG tablet tablet Take 1 tablet by mouth Daily. Active albuterol sulfate HFA 108 (90 Base) MCG/ACT inhalerIndicatio ns:Mild intermittent asthma without complication Inhale 2 puffs Every 4 (Four) Hours As Needed for Wheezing. 18 g 2 11/06/20 24 Active budesonide-formo terol (Symbicort) 160-4.5 MCG/ACT inhalerIndicatio ns:Mild intermittent asthma with acute exacerbation Inhale 2 puffs Every 4 (Four) Hours As Needed (Asthma). Rinse mouth with water after each use 10.2 g 1 12/11/19 25 Active escitalopram (LEXAPRO) 20 MG tabletIndication s:Anxiety and depression Take 1 tablet by mouth Daily. 90 tablet 1 04/09/20 25 Active labetalol (NORMODYNE) 200 MG tabletIndication s:Palpitations Take 1 tablet by mouth 2 (Two) Times a Day. 60 tablet 6 05/20/20 25 Active methylphenidate 36 MG CR tabletIndication s:ADHD, predominantly inattentive type Take 1 tablet by mouth Every Morning 30 tablet 05/27/20 25 Active methylphenidate (RITALIN) 5 MG tabletIndication s:ADHD, predominantly inattentive type 1 tablet orally at noon 30 tablet 05/27/20 25 Active busPIRone (BUSPAR) 15 MG tabletIndication s:Anxiety and depression Take 1 tablet by mouth 2 (Two) Times a Day. 180 tablet 1 06/13/20 25 Active buPROPion XL (WELLBUTRIN XL) 300 MG 24 hr tabletIndication s:Anxiety and depression Take 1 tablet by mouth Daily. 90 tablet 1 06/13/20 25 Active Continuous Glucose Sensor (Dexcom G7 Sensor) misc USE As directed EVERY 10 DAYS 06/26/20 25 Active Insulin Pen Needle (Pen [place]) 31G X 5 MM misc Use 1 each 4 (Four) Times a Day. 100 each 2 07/03/20 25 Active Insulin Lispro, 1 Unit Dial, (HumaLOG KwikPen) 100 UNIT/ML solution pen-injector Inject 5 Units under the skin into the appropriate area as directed 3 (Three) Times a Day With Meals. Please take 15 minutes before each meal. 15 mL 07/11/20 25 Active Insulin Glargine (LANTUS SOLOSTAR) 100 UNIT/ML injection pen Inject 10 Units under the skin into the appropriate area as directed Daily. 15 mL 1 07/11/20 25 Active Insulin Lispro, 1 Unit Dial, (HumaLOG KwikPen) 100 UNIT/ML solution pen-injector Inject 4 Units under the skin into the appropriate area as directed 3 (Three) Times a Day With Meals. Please take 15 minutes before each meal. 15 mL 07/03/20 25 2024 Discontinued Active Problems Problem Noted Date Diagnosed Date Acute non-recurrent maxillary sinusitis 12/11/19 Assessment & Plan (12/11/2024 6:19 PM EST): [...] that on Tuesday she bent over to poultry picker her child and her heart rate [...] all of which were normal. Referred to [facility] [place] cardiology who completed echo 06/14/2024 which was [...] need to switch to labetalol per her WHARFINGER CHIEF Dr. Kimbrough at [facility]. Patient has been instructed to start [...] all of which were normal. Referred to [facility] [place] cardiology who completed echo 06/14/2024 which was normal and had nonconcerning Holter monitor. Initial metoprolol 25 mg ER daily, switch to propranolol 20 mg in the potential she could get in the future this would prefer medicine. Overall she is clinically feeling better on regimen medicine. Keep follow-up with [facility] [place] cardiology. Assessment & Plan (06/14/2024 4:33 PM [...] sensation with sitting to standing, with equivocal Wes-Hallpike maneuver which has since resolved. At that [...] a bit of a dizzy sensation with Wes-Hallpike maneuver to the left she did not [...] 1 week's time we will recheck the Bouse-Hallpike maneuver to see if there is any persistence in this regard. 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 No current medications at this time but keep regular follow-up with mortarman. 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 Santos, mortarman and [facility]. Plan in place with potential complications of transition to [facility] if she delivers earlier has significant complication [...] diabetes mellitus. Nonetheless keep regular follow-up with OB/commercial fishing vessel operator who has placed her on glipizide [...] diagnosis by review of her history, with [place] forms showing the same. No comorbid sleep [...] with stability prefer to continue as per mortarman. Of note we had transiently held ADHD [...] with stability prefer to continue as per mortarman. Of note we had transiently held ADHD [...] diagnosis by review of her history, with [place] forms showing the same. No comorbid sleep [...] diagnosis by review of her history, with [place] forms showing the same. No comorbid sleep [...] diagnosis by review of her history, with [place] forms showing the same. No comorbid sleep [...] diagnosis by review of her history, with [place] forms showing the same. No comorbid sleep [...] diagnosis by review of her history, with [place] forms showing the same. No comorbid sleep [...] diagnosis by review of her history, with [place] forms showing the same. 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 Reinforced healthy diet, good activity level is [...] Encounters Date Type Department Care Team Description 07/11/2025 Medication Therapy Management [facility] [address] [facility] [address] [place] [address] Daija Murray MD 07/03/2025 Medication Therapy Management [facility] [address] [facility] [address] [place] [address] Daija Murray MD 07/03/2025 Telephone [facility] [address] [facility] [address] [place] [address] Vira Paniagua production ski repairer Only 07/01/2025 11:45 AM EDT - 07/01/2025 11:59 PM EDT Hospital Encounter [facility] DIABETES ED [address] [facility] [address] [place] [address] Discharge Disposition: Home or Self Care 07/01/2025 Travel 06/27/2025 11:15 AM EDT Office Visit [facility] [address] [facility] [address] [place] [address] Sarah George MD Bicornuate uterus (Primary Dx); Diet controlled gestational diabetes mellitus (GDM) in third trimester 06/27/2025 11:01 AM EDT - 06/27/2025 11:59 PM EDT Hospital Encounter [facility] US PER DIAG CTR [address] [place] [address] Sarah George MD Bicornuate uterus Discharge Disposition: Home or Self Care 06/27/2025 Documentation [facility] [address] [facility] [address] [place] [address] Vira Paniagua RN 06/27/2025 Travel 06/24/2025 12:49 PM EDT - 06/24/2025 11:59 PM EDT Hospital Encounter [facility] DIABETES ED [address] [facility] [address] [place] [address] Juan Miguel Marie MD Discharge Disposition: Home or Self Care 06/24/2025 Travel 06/13/2025 1:00 PM EDT Office Visit [facility] [address] [place] [address] [place] [address] Mingo Limon MD ADHD, predominantly inattentive type (Primary Dx); Anxiety and depression; Gestational diabetes mellitus (GDM) in second trimester controlled on oral hypoglycemic drug; Mixed hyperlipidemia; Palpitations 06/13/2025 Travel 05/27/2025 Refill [facility] [address] [place] [address] [place] [address] Mingo Limon MD ADHD, predominantly inattentive type 05/23/2025 10:30 AM EDT Office Visit [facility] [address] [facility] [address] [place] [address] Sarah George MD Bicornuate uterus (Primary Dx) 05/23/2025 10:06 AM EDT - 05/23/2025 11:59 PM EDT Hospital Encounter [facility] US PER DIAG CTR [address] [address] Milton Puentes MD 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, antepartum; History of delivery, currently ; Tachycardia; History of gestational diabetes in prior , currently ; , unspecified gestational age; Encounter for repeat ultrasound of pyelectasis, antepartum, not applicable or unspecified fetus Discharge Disposition: Home or Self Care 05/23/2025 Travel 05/16/2025 Telephone [facility] CARDIOLOG[facility] [address] [place] [address] Franchesca Hare APRN 05/13/2025 Results Follow-Up [facility] [address] [place] [address] [place] [address] Mingo Limon MD 05/10/2025 1:15 PM EDT Office Visit [facility] PRIMARY [address] [place] [address] Mingo Limon MD Acute cystitis without hematuria (Primary Dx); ADHD, predominantly inattentive type; Anxiety and depression 05/10/2025 12:30 PM EDT Office Visit [facility] [address] [place] [address] Franchesca Hare, NIRAV Palpitations (Primary Dx); Tachycardia 05/10/2025 Travel 05/08/2025 Telephone [facility] [address] [place] [address] Franchesca Hare, NIRAV HARE-APOINTMENT from Last 3 Months Immunizations Immunization Administration [...] Grandmother Ary Saenz Hypertension Maternal Grandmother Ary Dany Uterine cancer Maternal Great-Grandmother Anxiety disorder Mother [...] Pressure 87/55 06/27/2025 11:11 AM EDT 10 161 Pulse 102 06/13/2025 1:04 PM EDT Temperature [...] Description 07/26/2025 7:30 AM EDT Office Visit [facility] MAT[facility]INE [address] [facility] [address] [place] [address] 07/26/2025 7:30 AM EDT Appointment [facility] PER DIAG CTR [address] [place] [address] 08/09/2025 10:00 AM EDT Office Visit [facility] CARDIOLOG[facility] [address] [place] [address] Nate Franchesca W, WIRE MESH FILTER FABRICATOR [address] [place] [address] [place] [address] 08/19/2025 8:45 AM EDT Office Visit [facility] [address] [place] [address] Mingo Limon MD [address] [place] [address] Health Maintenance Due Date Last Done Comments [...] Procedure Name Priority Date/Time Associated Diagnosis Comments [facility] Routine 06/27/2025 11:29 AM EDT Bicornuate uterus SCANNED - LABS 06/16/2025 SCANNED - IMAGING 06/16/2025 SCANNED - LABS 06/10/2025 [facility] Routine 05/23/2025 11:41 AM [...] Recently Relevant to Health Maintenance Results * [facility] (06/27/2025 11:29 AM EDT) Only the most recent of2 resultswithin the time period is included. Anatomical Region Laterality Modality Ultrasound 06/27/2025 11:1 7 AM EDT Narrative 07/02/2025 8:14 PM EDT PAT NAME: KARMEN BRAVO MED REC#: [id number] DA: 2000 PAT GEND: F PAT TYPE: O EXAM RO: [id number] REF PHYS MILTON PUENTES Comparison Studies The [...] Hadlock OFD 99.6 mm 32w 1d >99% Yocasat HC 278.2 mm 30w 3d 86% Hadlock Cerebellum tr 38.5 mm 31w 2d >99% Hill AC 244.8 mm 28w 5d 61% Hadlock Femur 51.4 mm 27w 3d 18% Hadlock Humerus 47.3 mm 27w 6d 34% Yocasta HC / AC 1.14 EFW 1,245 g 28w 1d 53% Hadlock EFW (lb) 2 lb EFW (oz) 12 oz EFW by: Hadlock ([id number]-FL) Extended Cav. septi pel. tr 6.9 mm [...] Normal Heart / Thorax 3-vessel view: Normal 5-mnwjuz-uaokchq view: normal Stomach: Appears normal Kidneys: Appears normal Bladder: Appears normal Gender: male Wants to know gender: yes Impression ========= Cephalic S=D Normal appearing limited anatomy Normal fluid Recommendation FOllow up 4 weeks Coding ====== Description: [id number] [employer] Workflow Consultant: Myranda De La Torre RDMS Physician: Sarah George MD, FACOG Electronically signed by: Sarah George MD, FACOG at: 20:14 Procedure Note Sarah George MD - 07/02/2025 PAT NAME: KARMEN BRAVO MED REC#: [id number] DA: [id number] PAT GEND: F PAT TYPE: O EXAM RO: [id number] REF PHYS [place] Comparison Studies The findings of this study are compared to the prior ultrasound studydated 05/23/25 Patient Status Outpatient Indication ======== Gestational diabetes. Hx PPROM and PTD 32 wk. Morbid obesity BMI 40. Maternal Assessment Oysius814 cm Height (ft)4 ft Height (in)9 in Ciokge18 kg Weight (lb)188 lb BMI40.01 kg/m Method ======= Transabdominal ultrasound examination. View: Adequate view ========= Rasmussen . Number of fetuses: 1 Dating ====== Method of dating:based on stated CHANTE GA by prior [id number] w + 1 d CHANTE by prior assessment:09/18/2025 Ultrasound examination on:06/27/2025 GA by U/S based upon:AC, BPD, Femur, HC GA by U/S29 w + 1 d CHANTE by U/S:09/11/2025 Previous dating:based on stated CHANTE, selected on 05/23/2025 Agreed CHANTE of previous datin09/18/2025 Assigned:based on stated CHANTE, selected on 06/27/2025 Assigned GA28 w + 1 d Assigned CHANTE:09/18/2025 [id number] d Biometry Standard BPD74.3 mm 29w 6d 87% Hadlock OFD99.6 mm 32w 1d >99% Yocasta HC278.2 mm 30w 3d 86% Hadlock Cerebellum tr38.5 mm 31w 2d >99% Hill AC244.8 mm 28w 5d 61% Hadlock Femur51.4 mm 27w 3d 18% Hadlock Tpbvlxh73.3 mm 27w 6d 34% Yocasta HC / AC1.14 EFW1,245 g 28w 1d 53% Hadlock EFW (lb)2 lb EFW (oz)12 oz EFW by:Hadlock ([id number]-[id number]-FL) Extended Cav. septi pel. tr6.9 mm CM8.0 mm 82% Nicolaides Head / Face / Neck Cephalic index0.75 11% Nicolaides Extremities / Bony Struc FL / BPD0.69 FL / HC0.18 FL / AC0.21 Other Structures IGI815 bpm General Evaluation Cardiac activity present. FHR [...] LVOT view:Normal Heart / Thorax 3-vessel view:Normal 4-dmvfph-asuzlvf view:normal Stomach:Appears normal Kidneys:Appears normal Bladder:Appears normal Gender:male Wants to know gender:yes Impression ========= Cephalic S=D Normal appearing limited anatomy Normal fluid Recommendation FOllow up 4 weeks Coding ====== Description:84330-22 [employer] Workflow Consultant: Myranda De La Torre RDMS Physician: Sarah George MD, FACOG Electronically signed by: Sarah George MD, FACOG at: 20:14 Result [facility] Sarah George MD [facility] [place] ORDERABLES Final Result * IMAGING SCANNED (06/16/2025) Only the most recent of2 resultswithin the time period is included. Anatomical Region Laterality Modality Radiographic Aurelia ging Result [facility] Mingo Limon MD [facility] DIAGNOSTIC IMAGING ORDERABLE S Final Result * [...] 1:49 PM EDT 05/10/2025 Comment:Urine Release to pat jessi Narrative [facility] (AMBULATORY) - 05/12/2025 6:37 AM EDT Performed at: 01 - [facility] [place] [address] [place], [place] [id number] Centrifugal Extractor Operator: Dagoberto Campbell PhD, Phone: [phone] us Mingo Limon MD MICROBIOLOGY - GENERAL ORDERABLE S Final Result [facility] (AMBULATORY) [address] [place] [address], [place] [phone] [facility] [address] [place] [address], [place] [phone] * (ABNORMAL) POC Urinalysis Dipstick (05/10/2025 1:38 PM EDT) Color Dark Yellow Yellow, Straw, Dark Yellow, Char [facility] Clarity, UA Cloudy(A) Clear [facility] Glucose, UA Negative Negative mg/dL [facility] Bilirubin Negative Negative [facility] Ketones, UA Negative Negative [facility] Specific [place] 1.010 1.005 - 1.030 [facility] Blood, UA Negative Negative [facility] pH, Urine 8.0 5.0 - 8.0 [facility] Protein, POC Negative Negative mg/dL [facility] Urobilinogen, UA Normal Normal, 0.2 E.U./dL [facility] Leukocytes Large (3+)(A) Negative [facility] Nitrite, UA Negative Negative [facility] Urine 05/10/2025 1:38 PM EDT us Mingo Limon MD POINT OF CARE TEST ORDERABLES Fi nal Result [facility]
[address] [place] [address], * LIQUID-BASED PAP SMEAR WITH HPV GENOTYPING IF ASCUS (GEENA,COR,MAD) (08/27/2024 9:58 AM EDT) Reference Lab Report [facility] [address] [place] [address] or [phone] Masood Herron M.D., Counseling Services Director PATIENT NAME LABORATORY NO. KARMEN MARSHALL [id number] AGE SEX SSN CLIENT REF # [facility] 22 2000 F [id number] 206 ANNA RENDON REQUESTING Joe [place] [address] CECILIA CONTRERAS DATE COLLECTED DATE RECEIVED DATE [...] of chlamydial and gonococcal disease using the [place] system. DIESEL MAINTENANCE TECHNICIAN: JOSHUA OSORIO (ASCP) CPT CODES: [id number], [id number], [id number] 09/04/2024 10:12 AM EDT [facility] ThinPrep Vial Cervix uteri structure / Unknown Collection / Unknown 08/27/2024 9:58 AM EDT 08/27/2024 9:58 AM EDT Cecilia Contreras WIRE MESH FILTER FABRICATOR PATHOLOGY/CYTOLOGY ORDERA BLES Final Result [facility]
[address] [place] [address], [place] [phone] * (ABNORMAL) Lipid Panel (05/21/2024 12:34 PM [...] 8:10 AM EDT Performed at: 01 - [facility] [place] [address] [place] [id number] Centrifugal Extractor Operator: Dagoberto Campbell PhD, Phone: [phone] Mingo Limon MD LAB BLOOD ORDERABLES Final Resul t Performing Organization Address [facility] Co de Phone Number [facility] (AMBULATORY) [address] [place] [address], [place] [phone] [facility] [address] [place] [address], [place] [phone] from Last 3 Months or Most Recently Relevant to Health Maintenance Insurance [facility] [place] Care Teams Visual Effects Editor Relationship Specialty Start Date End Date Mingo Limon MD [address] [place] [address] PCP - General Internal Medicine 07/30/22
--- OUTSIDE RECORDS SUMMARY | 2025-07-15 14:38 | XMS_ITS | Clinical Summary ---
Author Organization Healthcare Address [address] [place] [address] Care Team Providers Care Molding Plasterer Name Role Phone Pcp, No Primary Care [...] drink first t elyssa in the morning (EYE-HEAD HOLDER) to steady your nerves or to get [...] [facility]-Adult SDOH Screenings 2020 [facility]-Pap Smear 2023 AKF-URHFY-60 Vaccine ( season) 2024 10/12/2021, 04/01/2021, 03/04/2021 [...] require contact precautions indefinitely. 05/07/2023 05/07/2023 Insurance [facility] Advance Directives * Full Code (Latest Code Status on File) Date Activated Date Inactivated Comments 05/03/2023 8:40 AM 05/09/2023 7:09 PM Question Answer Comments Patient has decision-making capacity? Yes Care Teams Molding Plasterer Relationship Specialty Start Date End Date Pcp, No [address] [place] [address] PCP - General Family Medicine 05/02/23
--- OUTSIDE RECORDS SUMMARY | 2025-07-15 14:38 | XMS_ITS | Encounter Summary ---
Author Organization [facility] Address [address] [place] [address] Care Team Providers Care Sack Sorter Name Role Phone Mingo Limon MD Primary Care Provider [phone] Encounter Details Date Type Department Care Team (Late st Contact Info) Description 07/11/2025 Medication Therapy Management [facility] MATERNAL MEDICINE [address] [place] [place] [phone] Daija Murray MD [address] [place] [address] Social History Tobacco Use Types Packs/Day Years [...] Description 07/26/2025 7:30 AM EDT Office Visit [facility] MATERNAL MEDICINE [address] [place] [address] 07/26/2025 7:30 AM EDT Appointment [facility] US PER DIAG CTR [address] [place] [address] 08/09/2025 10:00 AM EDT Office Visit [facility] CARDIOLOGY [address] [place] [address] SeFranchesca he W, STAFF PSYCHOLOGIST [address] [place] [address] [place] [address] 08/19/2025 8:45 AM EDT Office Visit [facility] PRIMARY CARE [address] [place] [address] Mingo Limon MD [address] [place] [address] [place] [address] documented as of this encounter Visit Diagnoses Not on filedocumented in this encounter Care Teams Sack Sorter Relationship Specialty Start Date End Date Mingo Limon MD [address] [place] [address] [place] [address] PCP - General Internal Medicine 07/30/22 documented as of this encounter
--- OUTSIDE RECORDS SUMMARY | 2025-07-15 14:38 | XMS_ITS | Encounter Summary ---
Author Organization [facility] Address [address] [place] [address] Care Team Providers Care Composite Technician Name Role Phone Mingo Limon MD Primary Care Provider Reason for Visit * Reason Comments Med Refill Encounter Details Date Type Department Care Team (Late st Contact Info) Description 05/27/2025 Refill [facility]IMARY [facility] [address] [place] [address] [place] [address] Mingo Limon MD [address] [place] [address] ADHD, predominantly inattentive type Social [...] Description 07/26/2025 7:30 AM EDT Office Visit [facility] [facility] [address] [place] [address] 07/26/2025 7:30 AM EDT Appointment [facility] PER DIAG [facility] [address] [place] [address] 08/09/2025 10:00 AM EDT Office Visit [facility] CARDIOLOGY [address] [place] [id number] Franchesca Sullivan, PARACHUTE OFFICER [address] [place] [address] 08/19/2025 8:45 AM EDT Office Visit [facility] [address] [place] [address] [place] [address] Mingo Limon MD [address] [place] [address] [place] [address] documented as of this encounter Visit Diagnoses Diagnosis ADHD, 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
--- OUTSIDE RECORDS SUMMARY | 2025-07-15 14:38 | XMS_ITS | Encounter Summary ---
Author Organization [facility] Address [address] [place] [address] Care Team Providers Care Heavy Coil Winder Name Role Phone Mingo Limon MD Primary Care Provider [phone] Reason for Visit * Reason Onset Date Comments Advice Only 07/03/2025 Encounter Details Date Type Department Care Team (Late st Contact Info) Description 07/03/2025 Telephone [facility] MAT[facility]NAL MEDICINE [address] [facility] [address] [place] [address] Vira Paniagua head banquet waiter/waitress Only Social History Tobacco Use Types Packs/Day [...] wants to use [facility] pharmacy in [place]. Vira Paniagua RN documented in this encounter Plan of Treatment Upcoming Encounters Date Type Department Care Team (Late st Contact Info) Description 07/26/2025 7:30 AM EDT Office Visit [facility] [facility] [address] [place] [address] 07/26/2025 7:30 AM EDT Appointment [facility] PER DI[facility] [address] [place] [address] 08/09/2025 10:00 AM EDT Office Visit [facility] CARDIOLOGY [address] [place] [address] Franchesca Sullivan W, PRODUCTION FINISHER [address] [place] [address] 08/19/2025 8:45 AM EDT Office Visit [facility] PRIMARY [facility]ARE [address] [place] [address] [place] [address] Mingo Limon MD [address] [place] [address] [place] [address] documented as of this encounter Visit Diagnoses Not on filedocumented in this encounter Care Teams Heavy Coil Winder Relationship Specialty Start Date End Date Mingo Limon MD [address] [place] [address] [place] [address] PCP - General Internal Medicine 07/30/22 documented as of this encounter
--- OUTSIDE RECORDS SUMMARY | 2025-07-15 14:39 | XMS_ITS | Encounter Summary ---
Author Organization [facility] Address [address] [place] [address] Care Team Providers Care Bad Credit Collector Name Role Phone Mingo Limon MD Primary [...] EDT Office Visit [facility] MATERNAL MEDICINE [address] [place] [address] 07/26/2025 7:30 AM EDT Appointment [facility] [address] [place] [address] 08/09/2025 10:00 AM EDT Office Visit [facility] CARDIOLOGY [address] [place] [address] Franchesca Sullivan, EYELET ROW MARKER [address] [place] [address] 08/19/2025 8:45 AM EDT Office Visit [facility] PRIMARY CARE [address] [place] [address] Mingo Limon MD [address] [place] [address] documented as of this encounter Visit Diagnoses Not on filedocumented in this encounter Care Teams Bad Credit Collector Relationship Specialty Start Date End Date Mingo Limon MD [address] [place] [address] PCP - General Internal Medicine 07/30/22 documented as of this encounter
[2025-07-15 14:56] VITALS: BMI 39.9
[2025-07-15 15:00] LABS: Microscopic, Urine URINE MICROSCOPIC (MICROSCOPIC)
[2025-07-15 15:07] VITALS: BP 108/68; PULSE 107; RESP 18; TEMP 36.9; O2SAT 95; BMI 38.1
[2025-07-15 15:24] LABS: Bilirubin,Urine Negative (Negative); Color,Urine YELLOW (Yellow); Glucose,Urine (UA) Negative (Negative); Ketones,Urine Negative (Negative); Leukocyte Esterase,Urine 2+ (Negative); PH,Urine 7.5 (5.0-8.5); Protein,Urine Negative (Negative); Specific Gravity, Urine 1.020 (1.005-1.030); Urobilinogen,Urine 1.0 EU/dl (0.2)
[2025-07-15 16:26] LABS: Bacteria,Urine 3+ /lpf; Squamous Epithelial Cell,Urine 50-100 #/hpf (0-5); WBC,Urine 20-50 #/hpf (0-3)
[2025-07-15 17:48] LABS: Fetal Fibronectin (Rapid) Negative (Negative)
== END 2025-07-15 18:05 | disposition home or self-care (01) ==
LOC: OBOUT 14:37 → OB 14:38
PROVIDERS: PCP Pediatrics; Visit Provider Obstetrics & Gynecology
DX: O10.913 Unspecified pre-existing hypertension complicating pregnancy, third trimester (principal); Z3A.29 29 weeks gestation of pregnancy
CPT/HCPCS: 59025; 81001; 82731; 87086; 99212; G0463

== ENCOUNTER 2025-07-28 13:04 | Outpatient (CLI) | payer OTHER, SELFPAY ==
--- OUTSIDE RECORDS SUMMARY | 2025-06-13 13:00 | XMS_ITS | Encounter Summary ---
Author Organization [facility] Address [address] [place] [address] Care Team Providers Care Milk Inspector Name Role Phone Mingo Limon MD Primary Care Provider [phone] Reason for Visit * Reason Comments Med Refill Encounter Details Date Type Department Care Team (Late st Contact Info) Description 06/13/2025 1:00 PM EDT Office Visit [facility] PRIMARY CARE [address] [place] [address] [place] [address] Mingo Limon MD [address] [place] [address] ADHD, predominantly inattentive type (Primary Dx); Anxiety [...] all of which were normal. Referred to [facility] cardiology who completed echo 06/14/2024 which was [...] MD - 06/13/2025 1:34 PM EDTAssociated Problem(s): Insulin controlled gestational diabetes mellitus (GDM) in third trimester Previous diagnosis of gestational diabetes with her 2022 , and recent testing through [facility] grader meat reveals what appears to be a failed 1 hour 2-hour and 3-hour glucose challenge test, as such it appears she is progressing to a similar pattern. No current medications atthis time but keep regular follow-up with grader meat. Of note she had been placed in [...] diagnosis by review of her history, with [place] forms showing the same. No comorbid sleep [...] with stability prefer to continue as per grader meat. Of note we had transiently held ADHD [...] no SI/HI and handling her stressors appropriately. Dairy Powder Mixer Operator has recommendedher to continue on the regimen [...] diagnosis by review of her history, with [place] forms showing the same. No comorbid sleep [...] with stability prefer to continue as per grader meat. Of note we had transiently held ADHD [...] , and recent testing through [facility] grader meat reveals what appears to be a failed 1 hour 2-hour and 3-hour glucose challenge test, as such it appears she is progressing to a similar pattern. No current medications atthis time but keep regular follow-up with grader meat. Of note she had been placed in [...] all of which were normal. Referred to [facility] who completed echo 06/14/2024 which was [...] follow up, ADHD monitoring. Mingo Limon MD [facility] documented in this encounter Plan of Treatment Upcoming Encounters Date Type Department Care Team (Late st Contact Info) Description 08/09/2025 10:00 AM EDT Office Visit [facility] CARDIOLOGY [address] [place] [phone] Franchesca Sullivan, GENETIC COUNSELLOR [address] [place] [address] 08/19/2025 8:45 AM EDT Office Visit [facility] PRIMARY CARE [address] [place] [address] [place] [phone] Mingo Limon MD [address] [place] [address] [place] [address] 08/23/2025 7:30 AM EDT Office Visit [facility] MATERNAL MEDICINE [address] [place] [address] 08/23/2025 7:30 AM EDT Appointment [facility] DIAG CTR [address] [place] [address] documented as of this encounter Visit Diagnoses Diagnosis ADHD, predominantly inattentive type- Primary Attention deficit disorder without mention of hyperactivity Anxiety and depression Gestational diabetes mellitus (GDM) in second trimester controlled on oral hypoglycemic drug Mixed hyperlipidemia Palpitations documented in this encounter Care Teams Milk Inspector Relationship Specialty Start Date End Date Mingo Limon MD [address] [place] [address] PCP - General Internal Medicine 07/30/22 documented as of this encounter
--- OUTSIDE RECORDS SUMMARY | 2025-06-24 12:49 | XMS_ITS | Encounter Summary ---
Author Organization [facility] Address [address] [place] [address] Care Team Providers Care Hand Cloth Examiner Name Role Phone Mingo Limon MD Primary Care Provider [phone] Encounter Details Date Type Department Care Team (Late st Contact Info) Description 06/24/2025 12:49 PM EDT - 06/24/2025 11:59 PM EDT Hospital Encounter [facility] DIABETES ED [address] [place] [address] Juan Miguel Marie MD 1700 [facility] [address] [place] [phone] Discharge Disposition: Home or Self Care Social [...] use EPIC. If you are not an [employer] user a copy of patient's assessment and notes will be sent per routine. Thank you. documented in this encounter Plan of Treatment Upcoming Encounters Date Type Department Care Team (Late st Contact Info) Description 08/09/2025 10:00 AM EDT Office Visit [facility] CARDIOLOGY [address] [place] [address] SeFranchesca he, MANAGER DAIRY [address] [place] [address] 08/19/2025 8:45 AM EDT Office Visit [facility] PRIMARY CARE [address] [place] [address] [place] [address] Mingo Limon MD [address] [place] [address] [place] [address] 08/23/2025 7:30 AM EDT Office Visit [facility] MATERNAL MEDICINE [address] [place] [address] 08/23/2025 7:30 AM EDT Appointment [facility] US PER DIAG CTR [address] [place] [address] documented as of this encounter Visit Diagnoses Not on filedocumented in this encounter Care Teams Hand Cloth Examiner Relationship Specialty Start Date End Date Mingo Limon MD [address] [place] [address] [place] [address] PCP - General Internal Medicine 07/30/22 documented as of this encounter
--- OUTSIDE RECORDS SUMMARY | 2025-06-27 11:01 | XMS_ITS | Encounter Summary ---
Author Organization [facility] Address [address] [place] [address] Care Team Providers Care Lidar Technician Name Role Phone Mingo Limon MD Primary Care Provider [phone] Reason for Referral * Diagnostic Imaging (Routine) - Closed Specialty Diagnoses / Procedures Referred By Arlethac t Referred To Contact Radiology Diagnoses Bicornuate uterus Procedures US [facility] Diagnostic [place] Sarah George MD [address] [address] Phone: tel: fax: [facility] US PER DIAG CTR [address] [place] [address] Phone: tel: Referral ID Status Reason Start Date Expiration Date Visits Re quested Visits Authorized [id number] Closed 05/23/2025 08/22/2026 1 1 Reason for Visit * Diagnostic Imaging (Routine) - Closed Specialty Diagnoses / Procedures Referred By Contac t Referred To Contact Radiology Diagnoses Bicornuate uterus Procedures [facility] Diagnostic [place] Sarah George MD [address] [address] Phone: tel: fax: [facility] US PER DIAG CTR [address] [place] [address] Phone: tel: Referral ID Status Reason Start Date Expiration Date Visits Re quested Visits Authorized [id number] Closed 05/23/2025 08/22/2026 1 1 Encounter Details Date Type Department Care Team (Late st Contact Info) Description 06/27/2025 11:01 AM EDT - 06/27/2025 11:59 PM EDT Hospital Encounter [facility] PER DIAG CTR [address] [place] [address] Sarah George MD [address] [facility] [address] [place] [address] Bicornuate uterus Discharge Disposition: Home [...] Description 08/09/2025 10:00 AM EDT Office Visit [facility] CARDIOLOGY [address] [address] Franchesca Sullivan, SALES CONSULTANT [address] [place] [address] 08/19/2025 8:45 AM EDT Office Visit [facility] PRIMARY CARE [address] [place] [address] Mingo Limon MD [address] [place] [address] 08/23/2025 7:30 AM EDT Office Visit [facility] [address] [facility] [address] [place] [address] 08/23/2025 7:30 AM EDT Appointment [facility] US PER DIAG CTR [address] [place] [address] documented as of this encounter Procedures Procedure Name Priority Date/Time Associated Diagnosis Comments [facility] Routine 06/27/2025 11:29 AM EDT Bicornuate uterus documented in this encounter Results * [facility] (06/27/2025 11:29 AM EDT) Anatomical Region Laterality Modality Ultrasound 06/27/2025 11:1 7 AM EDT Narrative 07/02/2025 8:14 PM EDT PAT NAME: KARMEN GU MED REC#: [id number] DA: [id number] PAT GEND: F PAT TYPE: O EXAM RO: [id number] REF PHYS MILTON PUENTES Comparison Studies The [...] GA 28 w + 1 d Assigned CHATNE: 09/18/2025 length 280 d Biometry Standard BPD [...] EFW (oz) 12 oz EFW by: Hadlock ([id number]-[id number]-[id number]-FL) Extended Cav. septi pel. tr 6.9 mm [...] Normal Heart / Thorax 3-vessel view: Normal 8-dkajjj-kktifcf view: normal Stomach: Appears normal Kidneys: Appears normal Bladder: Appears normal Gender: male Wants to know gender: yes Impression ========= Cephalic S=D Normal appearing limited anatomy Normal fluid Recommendation FOllow up 4 weeks Coding ====== Description: 74395-33 Follow Up Wood Heel Fitter Machine: Myranda De La Torre RDMS Physician: Sarah George MD, FACOG Electronically signed by: Sarah George MD, FACOG at: 20:14 Procedure Note Sarah George MD - 07/02/2025 PAT NAME: KARMEN GU MED REC#: [id number] DA: [id number] PAT GEND: F PAT TYPE: O EXAM RO: [id number] REF PHYS MILTON PUENTES Comparison Studies The findings of this study are compared to the prior ultrasound studydated 05/23/25 Patient Status Outpatient Indication ======== Gestational diabetes. Hx PPROM and PTD 32 wk. Morbid obesity BMI 40. Maternal Assessment Nmtvhy389 cm Height (ft)4 ft Height (in)9 in Wkoxyg14 kg Weight (lb)188 lb BMI40.01 kg/m Method ======= Transabdominal ultrasound examination. View: Adequate view ========= Rasmussen . Number of fetuses: 1 Dating ====== Method of dating:based on stated CHANTE GA by prior lmvvwnzwse26 w + 1 d CHANTE by prior assessment:09/18/2025 Ultrasound examination on:06/27/2025 GA by U/S based upon:AC, BPD, Femur, HC GA by U/S29 w + 1 d CHANTE by U/S:09/11/2025 Previous dating:based on stated CHANTE, selected on 05/23/2025 Agreed CHANTE of previous datin09/18/2025 Assigned:based on stated CHANTE, selected on 06/27/2025 Assigned GA28 w + 1 d Assigned CHANTE:09/18/2025 [id number] d Biometry Standard BPD74.3 mm 29w 6d 87% Hadlock OFD99.6 mm 32w 1d >99% Yocasta HC278.2 mm 30w 3d 86% Hadlock Cerebellum tr38.5 mm 31w 2d >99% Hill AC244.8 mm 28w 5d 61% Hadlock Femur51.4 mm 27w 3d 18% Hadlock Gvojwgs34.3 mm 27w 6d 34% Yocasta HC / AC1.14 EFW1,245 g 28w 1d 53% Hadlock EFW (lb)2 lb EFW (oz)12 oz EFW by:Hadlock ([id number]-QJ-ES-FL) Extended Cav. septi pel. tr6.9 mm CM8.0 mm 82% Nicolaides Head / Face / Neck Cephalic index0.75 11% Nicolaides Extremities / Bony Struc FL / BPD0.69 FL / HC0.18 FL / AC0.21 Other Structures KCY543 bpm General Evaluation Cardiac activity present. FHR [...] LVOT view:Normal Heart / Thorax 3-vessel view:Normal 0-vcscac-aqxwyvt view:normal Stomach:Appears normal Kidneys:Appears normal Bladder:Appears normal Gender:male Wants to know gender:yes Impression ========= Cephalic S=D Normal appearing limited anatomy Normal fluid Recommendation FOllow up 4 weeks Coding ====== Description:00501-48 Follow Up Wood Heel Fitter Machine: Myranda De La Torre RDMS Physician: Sarah George MD, FACOG Electronically signed by: Sarah George MD, FACOG at: 20:14 us Sarah George MD IMG US ORDERABLES Final Result documented in this encounter Visit Diagnoses Diagnosis Bicornuate uterus documented in this encounter Care Teams Lidar Technician Relationship Specialty Start Date End Date Mingo Limon MD [address] [place] [address] [place] [address] PCP - General Internal Medicine 07/30/22 documented as of this encounter
--- OUTSIDE RECORDS SUMMARY | 2025-06-27 11:15 | XMS_ITS | Encounter Summary ---
Author Organization [facility] Address [address] [place] [address] Care Team Providers Care Blueprint Cutter Name Role Phone Mingo Limon MD Primary Care Provider [phone] Reason for Referral * Diagnostic Imaging (Routine) - Closed Specialty Diagnoses / Procedures Referred By Arlethac t Referred To Contact Radiology Diagnoses Bicornuate uterus Diet controlled gestational diabetes mellitus (GDM) in third trimester Procedures [facility] Sarah George MD [address] [facility] [address] [place] [address] Phone: tel: fax: [facility] PER DIAG CTR [address] [place] [address] Phone: tel: Referral ID Status Reason Start Date Expiration Date Visits Re quested Visits Authorized [id number] Closed 07/02/2025 10/01/2026 1 1 Reason for Visit * Reason Comments GDM, bicornate ut, hx 32 wk PTD, MO Encounter Details Date Type Department Care Team (Late st Contact Info) Description 06/27/2025 11:15 AM EDT Office Visit [facility] MATERNAL MEDICINE [address] [facility] [address] [place] [address] Sarah George MD [address] [facility] [address] [place] [address] Bicornuate uterus (Primary Dx); Diet controlled gestational [...] in this encounter Progress Notes * Sarah Goerge MD - 06/27/2025 1:14 PM EDTAssociated Problem(s): [...] under imaging tab of patient chart in [facility] (Viewpoint report). Sarah George MD documented in this encounter Plan of Treatment Upcoming Encounters Date Type Department Care Team (Late st Contact Info) Description 08/09/2025 10:00 AM EDT Office Visit [facility] CARDIOLOGY [address] [place] [address] Franchesca Sullivan, SHIP STEWARD [address] [place] [address] [place] [address] 08/19/2025 8:45 AM EDT Office Visit [facility] PRIMARY CARE [address] [place] [address] [place] [address] Mingo Limon MD [address] [place] [address] [place] [address] 08/23/2025 7:30 AM EDT Office Visit [facility] MATERNAL MEDICINE [address] [place] [address] 08/23/2025 7:30 AM EDT Appointment [facility] US PER DIAG CTR [address] [place] [address] documented as of this encounter Results * US [facility] (07/26/2025 8:11 AM EDT) Anatomical Region Laterality Modality Ultrasound 07/26/2025 7:44 AM EDT Narrative 07/26/2025 8:29 AM EDT PAT NAME: KARMEN GU MED REC#: [id number] DA: 2000 PAT GEND: F PAT TYPE: O EXAM RO: [id number] REF PHYS MILTON PUENTES Comparison Studies The [...] EFW (oz) 5 oz EFW by: Hadlock (XIN-FG-RS-FL) Extended Cav. septi pel. tr 7.7 mm [...] Normal Heart / Thorax 3-vessel view: Normal 6-ldaeis-bucujyl view: normal Cord insertion: Normal Stomach: Appears [...] Follow-up as clinically indicated. Coding ======= Description: 35368-25 Follow Up Ultrasound Description: 68292-67 BPP without NST Archaeologist: Radha Matson RDMS Physician: Juan Miguel Marie MD, FACOG Electronically signed by: Juan Miguel Marie MD, FACOG at: 08:29 Procedure Note Juan Miguel Marie MD - 07/26/2025 PAT NAME: KARMEN GU MED REC#: [id number] DA: 2000 PAT GEND: F PAT TYPE: O EXAM RO: [id number] REF PHYS DHAVAL MILTON Comparison Studies The findings of this study are compared to the prior ultrasound studydated 06/27/25 Patient Status Outpatient Indication ======== Gestational diabetes. Hx PPROM and PTD 32 wk. Morbid obesity BMI 40. Maternal Assessment Aaeyaa300 cm Height (ft)4 ft Height (in)9 in Gihpjz61 kg Weight (lb)190 lb BMI40.35 kg/m Method ======= Transabdominal ultrasound examination ========= Rasmussen . Number of fetuses: 1 Dating ====== GA by prior [id number] w + 2 d CHANTE by prior [...] GA32 w + 2 d Assigned CHANTE:09/18/2025 ihmnly853 d Biometry Standard BPD84.9 mm 34w 1d 90% Hadlock YRO122.0 mm 38w 4d >99% Yocasta HC320.2 mm 36w 1d 96% Hadlock Cerebellum tr45.0 mm 34w 4d 91% Hill AC277.3 mm 31w 6d 34% Hadlock Femur60.9 mm 31w 4d 21% Hadlock HC / AC1.15 EFW1,957 g 32w 0d 42% Hadlock EFW (lb)4 lb EFW (oz)5 oz EFW by:Hadlock (OJT-BN-SP-FL) Extended Cav. septi pel. tr7.7 mm CM5.1 mm 5% Nicolaides Head / Face / Neck Cephalic index0.75 9% Nicolaides Extremities / Bony Struc FL / BPD0.72 FL / HC0.19 FL / AC0.22 Other Structures RCT340 bpm General Evaluation Cardiac activity present. FHR [...] LVOT view:Normal Heart / Thorax 3-vessel view:Normal 1-shfheo-qfkqpom view:normal Cord insertion:Normal Stomach:Appears normal Kidneys:Appears normal Bladder:Appears normal Gender:male Wants to know gender:yes Maternal Structures Uterus / Cervix Cervical aunwgo76.9 mm Doppler Arterial Umbilical A PI1.05 77% [...] Recommendation Follow-up as clinically indicated. Coding ======= Description:95949-56 Follow Up Ultrasound Description:30393-31 BPP without NST Archaeologist: Radha Matson RDMS Physician: Juan Miguel Marie MD, FACOG Electronically signed by: Juan Miguel Marie MD, FACOG at: 08:29 us Saarh George MD IMG US ORDERABLES Final Result documented in this encounter Visit Diagnoses Diagnosis Bicornuate uterus- Primary Diet controlled gestational diabetes mellitus (GDM) in third trimester Bicornuate uterus Diet controlled gestational diabetes mellitus (GDM) in third trimester documented in this encounter Care Teams Blueprint Cutter Relationship Specialty Start Date End Date Mingo Limon MD [address] [place] [address] [place] [address] PCP - General Internal Medicine 07/30/22 documented as of this encounter
--- OUTSIDE RECORDS SUMMARY | 2025-07-01 11:45 | XMS_ITS | Encounter Summary ---
Author Organization [facility] Address [address] [place] [address] Care Team Providers Care Adjunct Communications Faculty Member Name Role Phone Mingo Limon MD Primary Care Provider [phone] Encounter Details Date Type Department Care Team (Latest Contact Info) Description 07/01/2025 11:45 AM EDT - 07/01/2025 11:59 PM EDT Hospital Encounter [facility] DIABETES ED [address] [facility] [address] [place] [address] Discharge Disposition: Home or Self [...] 180 tablet 1 06/13/2025 Continuous Glucose Sensor (Wututucom G7 Sensor) [facility] USE As directed EVERY 10 DAYS [...] for assessment and notes if you use [employer]. If you are not an [employer] user a copy of patient's assessment and notes will be sent per routine. Thank you. Electronically signed by: Yelena De La Paz RN, [facility] 07/01/25 12:42 EDT documented in this encounter Plan of Treatment Upcoming Encounters Date Type Department Care Team (Late st Contact Info) Description 08/09/2025 10:00 AM EDT Office Visit [facility] CARDIOLOGY [address] [place] [address] SeFranchesca he, AUTOMOTIVE LIGHT MECHANIC [address] [place] [address] 08/19/2025 8:45 AM EDT Office Visit [facility] PRIMARY CARE [address] [place] [address] Mingo Limon MD [address] [place] [address] [place] [address] 08/23/2025 7:30 AM EDT Office Visit [facility] MATERNAL MEDICINE [address] [place] [address] 08/23/2025 7:30 AM EDT Appointment [facility] US PER DIAG CTR [address] [place] [address] documented as of this encounter Visit Diagnoses Not on filedocumented in this encounter Care Teams Adjunct Communications Faculty Member Relationship Specialty Start Date End Date Mingo Limon MD [address] [place] [address] PCP - General Internal Medicine 07/30/22 documented as of this encounter
--- OUTSIDE RECORDS SUMMARY | 2025-07-26 07:27 | XMS_ITS | Encounter Summary ---
Author Organization [facility] Address [address] [place] [address] Care Team Providers Care Bath Solution Maker Name Role Phone Mingo Limon MD Primary Care Provider [phone] Reason for Referral * Diagnostic Imaging (Routine) - Closed Specialty Diagnoses / Procedures Referred By Hansel Referred To Contact Radiology Diagnoses Bicornuate uterus Diet controlled gestational diabetes mellitus (GDM) in third trimester Procedures [facility] Sarah George MD [address] [address] Phone: tel: fax: [facility] US PER DIAG CTR [address] [place] [address] Phone: tel: Referral ID Status Reason Start Date Expiration Date Visits Re quested Visits Authorized Closed 07/02/2025 10/01/2026 1 1 Reason for Visit * Diagnostic Imaging (Routine) - Closed Specialty Diagnoses / Procedures Referred By Contac Referred To Contact Radiology Diagnoses Bicornuate uterus Diet controlled gestational diabetes mellitus (GDM) in third trimester Procedures [facility] Sarah George MD [address] [facility] [address] [place] [address] Phone: tel: fax: [facility] PER DIAG CTR [address] [place] [address] Phone: tel: Referral ID Status Reason Start Date Expiration Date Visits Re quested Visits Authorized [id number] Closed 07/02/2025 10/01/2026 1 1 Encounter Details Date Type Department Care Team (Latest Contact Info) Description 07/26/2025 7:27 AM EDT - 07/26/2025 11:59 PM EDT Hospital Encounter [facility] PER DIAG CTR [address] [place] [address] Bicornuate uterus; Diet controlled gestational diabetes mellitus [...] 15 mL 07/24/2025 Insulin Pen Needle (Pen [place]) 31G X 5 MM misc Use 1 [...] Description 08/09/2025 10:00 AM EDT Office Visit [facility] CARDIOLOGY [address] [place] [phone] Franchesca Sullivan, CLINICAL DIETETIC TECHNICIAN [address] [place] [address] 08/19/2025 8:45 AM EDT Office Visit [facility] PRIMARY CARE [address] [place] [address] [place] [phone] Mingo Limon MD [address] [place] [address] [place] [address] 08/23/2025 7:30 AM EDT Office Visit [facility]ERNAL MEDICINE [address] [facility] [address] [place] [address] 08/23/2025 7:30 AM EDT Appointment [facility] US PER DIAG CTR [address] [place] [phone] documented as of this encounter Procedures Procedure Name Priority Date/Time Associated Diagnosis Comments [facility] Routine 07/26/2025 8:11 AM EDT Bicornuate uterus Diet controlled gestational diabetes mellitus (GDM) in third trimester documented in this encounter Results * [facility] (07/26/2025 8:11 AM EDT) Anatomical Region Laterality Modality Ultrasound 07/26/2025 7:44 AM EDT Narrative 07/26/2025 8:29 AM EDT PAT NAME: SHELLY KARMEN MED REC#: [id number] DA: [id number] PAT GEND: F PAT TYPE: O EXAM RO: [id number] REF PHYS [place] UPENTES Comparison Studies The findings of this study [...] EFW (oz) 5 oz EFW by: Hadlock ([id number]) Extended Cav. septi pel. tr 7.7 mm [...] Normal Heart / Thorax 3-vessel view: Normal 2-rvnknl-golxtac view: normal Cord insertion: Normal Stomach: Appears [...] Follow-up as clinically indicated. Coding ======= Description: 92241-45 Follow Up Ultrasound Description: 52706-47 BPP without NST Railroad Police Officer: Radha Matson RDMS Physician: Juan Miguel Marie MD, FACOG Electronically signed by: Juan Miguel Marie MD, FACOG at: 08:29 Procedure Note Juan Miguel Marie MD - 07/26/2025 PAT NAME: KARMEN GU MED REC#: [id number] DA: 2000 PAT GEND: F PAT TYPE: O EXAM RO: [id number] REF PHYS [place] PUENTES Comparison Studies The findings of this study are compared to the prior ultrasound studydated 06/27/25 Patient Status Outpatient Indication ======== Gestational diabetes. Hx PPROM and PTD 32 wk. Morbid obesity BMI 40. Maternal Assessment Jtymgh691 cm Height (ft)4 ft Height (in)9 in Wltsua43 kg Weight (lb)190 lb BMI40.35 kg/m Method ======= Transabdominal ultrasound examination ========= Rasmussen . Number of fetuses: 1 Dating ====== GA by prior [id number] w + 2 d CHANTE by prior [...] GA32 w + 2 d Assigned CHANTE:09/18/2025 tfzzos307 d Biometry Standard BPD84.9 mm 34w 1d 90% Hadlock PTU011.0 mm 38w 4d >99% Yocasta HC320.2 mm 36w 1d 96% Hadlock Cerebellum tr45.0 mm 34w 4d 91% Hill AC277.3 mm 31w 6d 34% Hadlock Femur60.9 mm 31w 4d 21% Hadlock HC / AC1.15 EFW1,957 g 32w 0d 42% Hadlock EFW (lb)4 lb EFW (oz)5 oz EFW by:Hadlock ([id number]) Extended Cav. septi pel. tr7.7 mm CM5.1 mm 5% Nicolaides Head / Face / Neck Cephalic index0.75 9% Nicolaides Extremities / Bony Struc FL / BPD0.72 FL / HC0.19 FL / AC0.22 Other Structures [id number] bpm General Evaluation Cardiac activity present. FHR [...] LVOT view:Normal Heart / Thorax 3-vessel view:Normal 5-wbxmwg-iqxdsma view:normal Cord insertion:Normal Stomach:Appears normal Kidneys:Appears normal Bladder:Appears normal Gender:male Wants to know gender:yes Maternal Structures Uterus / Cervix Cervical csccky68.9 mm Doppler Arterial Umbilical A PI1.05 77% [...] Recommendation Follow-up as clinically indicated. Coding ======= Description:70672-28 Follow Up Ultrasound Description:07726-38 BPP without NST [employer] Police Officer: Radha Matson RDMS Physician: Juan Miguel Marie MD, FACOG Electronically signed by: Juan Miguel Marie MD, FACOG at: 08:29 us Sarah George MD IMG US ORDERABLES Final Result documented in this encounter Visit Diagnoses Diagnosis Bicornuate uterus Diet controlled gestational diabetes mellitus (GDM) in third trimester documented in this encounter Care Teams Bath Solution Maker Relationship Specialty Start Date End Date Mingo Limon MD [address] [place] [address] [place] [address] PCP - General Internal Medicine 07/30/22 documented as of this encounter
--- OUTSIDE RECORDS SUMMARY | 2025-07-26 07:30 | XMS_ITS | Encounter Summary ---
Author Organization [facility] Address [address] [place] [address] Care Team Providers Care Export Coordinator Name Role Phone Mingo Limon MD Primary Care Provider [phone] Reason for Referral * Diagnostic Imaging (Routine) - Authorized Specialty Diagnoses / Procedures Referred By Contac t Referred To Contact Radiology Diagnoses Insulin controlled gestational diabetes mellitus (GDM) in third trimester Procedures [facility] Juan Miguel Marie MD [address] [place] [address] Phone: tel: fax: Referral ID Status Reason Start Date Expiration Date V isits Requested Visits Authorized [id number] Authorized 07/26/2025 10/25/2026 1 1 Reason for Visit * Reason Comments GDM, hx PTD @ 32 wks Encounter Details Date Type Department Care Team (Late st Contact Info) Description 07/26/2025 7:30 AM EDT Office Visit [facility] MATERNAL MEDICINE [address] [employer] [address] [place] [phone] Juan Miguel Marie MD [address] [place] [address] Insulin controlled gestational diabetes mellitus (GDM) in [...] 0 Continuous Glucose Sensor (Dexcom G7 Sensor) [facility], USE As directed EVERY 10 DAYS, Disp: [...] Disp: , Rfl: Insulin Pen Needle (Pen [place]) 31G X 5 MM misc, Use 1 [...] follow-up in 4 weeks. Orders: - US [facility] Diagnostic [place]; Future Follow Up 4-week I spent 10 [...] Marie MD, FACOG Maternal Medicine, [facility] documented in this encounter Plan of Treatment Upcoming Encounters Date Type Department Care Team (Late st Contact Info) Description 08/09/2025 10:00 AM EDT Office Visit [facility] CARDIOLOGY [address] [place] [phone] Franchesca Sullivan, NIRAV [address] [place] [address] [place] [address] 08/19/2025 8:45 AM EDT Office Visit [facility] PRIMARY CARE [address] [place] [address] [place] [phone] Mingo Limon MD [address] [place] [address] [place] [address] 08/23/2025 7:30 AM EDT Office Visit [facility] MATERNAL MEDICINE [address] [place] [address] 08/23/2025 7:30 AM EDT Appointment [facility] US PER DIAG CTR [address] [place] [address] Scheduled Orders Name Type Priority Associated Diagnoses Orde r Schedule [facility] Imaging Routine Insulin controlled gestational diabetes mellitus (GDM) in third trimester Expected: 07/31/2025 (Approximate), Expires: 07/26/2026 documented as of this encounter Visit Diagnoses Diagnosis Insulin controlled gestational diabetes mellitus (GDM) in third trimester- Primary documented in this encounter Care Teams Export Coordinator Relationship Specialty Start Date End Date Mingo Limon MD [address] [place] [address] PCP - General Internal Medicine 07/30/22 documented as of this encounter
--- OUTSIDE RECORDS SUMMARY | 2025-07-28 13:07 | XMS_ITS | Encounter Summary ---
Author Organization [facility] Address [address] [place] [address] Care Team Providers Care Entry Manager Name Role Phone Mingo Limon MD Primary Care Provider [phone] Encounter Details Date Type Department Care Team (Late st Contact Info) Description 06/27/2025 Documentation [facility] MATERNAL MEDICINE [address] [facility] [address] [place] [address] Vira Paniagua, RN Social History [...] use vitaliy. Patient is to notify through [employer] once she has entered in our clinic [...] [facility] [address] [place] [address] Franchesca Sullivan, FOOD TESTER [address] [place] [address] [place] [address] 08/19/2025 8:45 AM EDT Office Visit [facility] PRIMARY CARE [address] [place] [address] [place] [address] Mingo Limon MD [address] [place] [address] [place] [address] 08/23/2025 7:30 AM EDT Office Visit [facility] MATERNAL MEDICINE [address] [place] [address] 08/23/2025 7:30 AM EDT Appointment [facility] US PER DIAG CTR [address] [place] [address] documented as of this encounter Visit Diagnoses Not on filedocumented in this encounter Care Teams Entry Manager Relationship Specialty Start Date End Date Mingo Limon MD [address] [place] [address] PCP - General Internal Medicine 07/30/22 documented as of this encounter
--- OUTSIDE RECORDS SUMMARY | 2025-07-28 13:07 | XMS_ITS | Encounter Summary ---
Author Organization [facility] Address [address] [place] [address] Care Team Providers Care Registered Nurse Maternity Name Role Phone Mingo Limon MD Primary Care Provider [phone] Encounter Details Date Type Department Care Team [...] Description 08/09/2025 10:00 AM EDT Office Visit [facility] CARDIOLOGY [address] [place] [address] Franchesca Sullivan W, HUMAN RESOURCES TALENT MANAGER [address] [place] [address] 08/19/2025 8:45 AM EDT Office Visit [facility] PRIMARY CARE [address] [place] [phone] Mingo Limon MD [address] [place] [address] 08/23/2025 7:30 AM EDT Office Visit [facility] MATERNAL MEDICINE [address] [place] [address] 08/23/2025 7:30 AM EDT Appointment [facility] US PER DIAG CTR [address] [place] [address] documented as of this encounter Visit Diagnoses Not on filedocumented in this encounter Care Teams Registered Nurse Maternity Relationship Specialty Start Date End Date Mingo Limon MD [address] [place] [address] PCP - General Internal Medicine 07/30/22 documented as of this encounter
--- OUTSIDE RECORDS SUMMARY | 2025-07-28 13:08 | XMS_ITS | Encounter Summary ---
Author Organization [facility] Address [address] [place] [address] Care Team Providers Care Engraver Set Up Operator Name Role Phone Mingo Limon MD Primary Care Provider Reason for Visit * Reason Onset Date Comments Advice Only 07/03/2025 Encounter Details Date Type Department Care Team (Late st Contact Info) Description 07/03/2025 Telephone [facility] MATERNAL MEDICINE [address] [facility] [address] [place] [address] Vira Paniagua pharmacy sales assistant Only Social History Tobacco Use Types Packs/Day [...] wants to use [facility] [place]. Vira Paniagua RN documented in this encounter Plan of Treatment Upcoming Encounters Date Type Department Care Team (Late st Contact Info) Description 08/09/2025 10:00 AM EDT Office Visit [facility] CARDIOLOGY [address] [place] [address] Franchesca Sullivan, HOE RUNNER [address] [place] [address] 08/19/2025 8:45 AM EDT Office Visit [facility] PRIMARY CARE [address] [place] [address] [place] [address] Mingo Limon MD [address] [place] [address] [place] [address] 08/23/2025 7:30 AM EDT Office Visit [facility] MATERNAL MEDICINE [address] [place] [address] 08/23/2025 7:30 AM EDT Appointment [facility] US PER DIAG CTR [address] [place] [address] documented as of this encounter Visit Diagnoses Not on filedocumented in this encounter Care Teams Engraver Set Up Operator Relationship Specialty Start Date End Date Mingo Limon MD [address] [place] [address] [place] [address] PCP - General Internal Medicine 07/30/22 documented as of this encounter
--- OUTSIDE RECORDS SUMMARY | 2025-07-28 13:08 | XMS_ITS | Encounter Summary ---
Author Organization [facility] Address [address] [place] [address] Care Team Providers Care Wire Bound Box Machine Operator Name Role Phone Mingo Limon MD Primary Care Provider [phone] Encounter Details Date Type Department Care Team (Late st Contact Info) Description 07/03/2025 Medication Therapy Management [facility] MATERNAL MEDICINE [address] [place] [id number] Daija Murray MD [address] [place] [address] Social History Tobacco Use Types Packs/Day Years [...] AM EDT Office Visit [facility] CARDIOLOGY [address] [place] [address] Franchesca Sullivan, AVIONICS INTEGRATION ENGINEER [address] [place] [address] [place] [address] 08/19/2025 8:45 AM EDT Office Visit [facility] PRIMARY CARE [address] [place] [address] [place] [address] Mingo Limon MD [address] [place] [address] [place] [address] 08/23/2025 7:30 AM EDT Office Visit [facility] MATERNAL MEDICINE [address] [facility] [address] [place] [address] 08/23/2025 7:30 AM EDT Appointment [facility] PER DIAG CTR [address] [place] [address] documented as of this encounter Visit Diagnoses Not on filedocumented in this encounter Care Teams Wire Bound Box Machine Operator Relationship Specialty Start Date End Date Mingo Limon MD [address] [place] [address] [place] [address] PCP - General Internal Medicine 07/30/22 documented as of this encounter
--- OUTSIDE RECORDS SUMMARY | 2025-07-28 13:08 | XMS_ITS | Encounter Summary ---
Author Organization [facility] Address [address] [place] [address] Care Team Providers Care Road Inspector Name Role Phone Mingo Limon MD Primary Care Provider [phone] Encounter Details Date Type Department Care Team [...] [facility] CARD[facility]OLOGY [address] [place] [address] Franchesca Sullivan W, ONLINE MARKETING DIRECTOR [address] [place] [address] 08/19/2025 8:45 AM EDT Office Visit [facility] PRIMARY CARE [address] [place] [address] Mingo Limon MD [address] [place] [address] 08/23/2025 7:30 AM EDT Office Visit [facility] MATERNAL MEDICINE [address] [place] [address] 08/23/2025 7:30 AM EDT Appointment [facility] US PER DIAG CTR [address] [place] [address] documented as of this encounter Visit Diagnoses Not on filedocumented in this encounter Care Teams Road Inspector Relationship Specialty Start Date End Date Mingo Limon MD [address] [place] [address] PCP - General Internal Medicine 07/30/22 documented as of this encounter
--- OUTSIDE RECORDS SUMMARY | 2025-07-28 13:08 | XMS_ITS | Encounter Summary ---
Author Organization [facility] Address [address] [place] [address] Care Team Providers Care Loading Machine Adjuster Name Role Phone Mingo Limon MD Primary Care Provider [phone] Encounter Details Date Type Department Care Team (Late st Contact Info) Description 07/16/2025 Education [facility] DIABETES ED [address] [place] [address] Yelena De La Paz, RN Social History Tobacco Use Types Packs/Day [...] on file documented as of this encounter Consult Notes * Yelena De La Paz, RN - 07/16/2025 9:14 AM EDT Diabetes Education Patient Name: Karmen Gu Date of : 2000 Admit Date: (Not on file) Patient telephoned for a ~10 min diabetes education follow-up via telephone today. Please see mediatab for assessment and notes if you use EPIC. If you are not an EPIC user a copy of patient's assessment and notes will be sent per routine. Thank you. Electronically signed by: Yelena De La Paz RN, [facility] 07/16/25 09:14 EDT documented in this encounter Plan of Treatment Upcoming Encounters Date Type Department Care Team (Late st Contact Info) Description 08/09/2025 10:00 AM EDT Office Visit [facility] CARDIOLOGY [address] [place] [address] Franchesca Sullivan, SOAP DRIER OPERATOR [address] [place] [address] 08/19/2025 8:45 AM EDT Office Visit [facility] PRIMARY CARE [address] [place] [address] [place] [phone] Mingo Limon MD [address] [place] [address] [place] [address] 08/23/2025 7:30 AM EDT Office Visit [facility] MATERNAL MEDICINE [address] [place] [address] 08/23/2025 7:30 AM EDT Appointment [facility] US PER DIAG CTR [address] [place] [address] documented as of this encounter Visit Diagnoses Not on filedocumented in this encounter Care Teams Loading Machine Adjuster Relationship Specialty Start Date End Date Mingo Limon MD [address] [place] [address] [place] [address] PCP - General Internal Medicine 07/30/22 documented as of this encounter
--- OUTSIDE RECORDS SUMMARY | 2025-07-28 13:08 | XMS_ITS | Encounter Summary ---
Author Organization [facility] Address [address] [place] [address] Care Team Providers Care Green Promotions Specialist Name Role Phone Mingo Limon MD Primary Care Provider [phone] Encounter Details Date Type Department Care Team (Latest Contact Info) Description 07/26/2025 Travel Social History Tobacco Use Types Packs/Day [...] CLINIC [place] [address] Franchesca Sullivan W, TOWER HELPER [address] [place] [address] 08/19/2025 8:45 AM EDT Office Visit [facility] PRIMARY CARE [address] [place] [phone] Mingo Limon MD [address] [place] [address] 08/23/2025 7:30 AM EDT Office Visit [facility] MATERNAL MEDICINE [address] [place] [address] 08/23/2025 7:30 AM EDT Appointment [facility] US PER DIAG CTR [address] [place] [address] documented as of this encounter Visit Diagnoses Not on filedocumented in this encounter Care Teams Green Promotions Specialist Relationship Specialty Start Date End Date Mingo Limon MD [address] [place] [address] PCP - General Internal Medicine 07/30/22 documented as of this encounter
--- OUTSIDE RECORDS SUMMARY | 2025-07-28 13:08 | XMS_ITS | Encounter Summary ---
Author Organization [facility] Address [address] [place] [address] Care Team Providers Care Pcat Instructor Name Role Phone Mingo Limon MD Primary Care Provider [phone] Encounter Details Date Type Department Care Team (Late st Contact Info) Description 07/11/2025 Medication Therapy Management [facility] MATERNAL MEDICINE [address] [place] [phone] Daija Murray MD [address] [place] [address] Social History Tobacco Use Types Packs/Day Years [...] Description 08/09/2025 10:00 AM EDT Office Visit [facility] CARDIOLOGY [address] [place] [address] Franchesca Sullivan, WRIST HEMMER [address] [place] [address] [place] [address] 08/19/2025 8:45 AM EDT Office Visit [facility] PRIMARY CARE [address] [place] [address] [place] [address] Mingo Limon MD [address] [place] [address] [place] [address] 08/23/2025 7:30 AM EDT Office Visit [facility] MATERNAL MEDICINE [address] [facility] [address] [place] [address] 08/23/2025 7:30 AM EDT Appointment [facility] PER DIAG CTR [address] [place] [address] documented as of this encounter Visit Diagnoses Not on filedocumented in this encounter Care Teams Pcat Instructor Relationship Specialty Start Date End Date Mingo Limon MD [address] [place] [address] [place] [address] PCP - General Internal Medicine 07/30/22 documented as of this encounter
--- OUTSIDE RECORDS SUMMARY | 2025-07-28 13:08 | XMS_ITS | Patient Health Record ---
Author Organization [facility] Address [address] [place] [address] Care Team Providers Care Doughnut Fryer Name Role Phone SANDOR GONZALEZ Unavailable [phone] Sandor Gonzalez MD Unavailable Unavailable Allergies No [...] Problem Status W/U Status Risk Notes Problem Information temporarily unavailable Allergic rhinitis (J30.9) Active confirmed Plan Of Treatment No Information Insurance Providers Payer Name Payer Address Payer Phone Subscriber Number Group Number Insured Name Patient Relationship to Insured Coverage Start Date Coverage End Date [employer] MEDICA[employer] [address] [place] [phone] [id number] [place] [employer] Self - patient is the insured Medical (General) History Medical History History ICD Code DEPRESSION AND ANXIETY Surgical History Surgery Date(Month/Year) WISDOM TEETH 2019
--- OUTSIDE RECORDS SUMMARY | 2025-07-28 13:08 | XMS_ITS | Clinical Summary ---
Author Organization [facility] Address [address] [place] [address] Care Team Providers Care Upholstery Repairer Name Role Phone Mingo Limon MD Primary Care Provider [phone] Allergies No known active allergies Medications fluticasone [...] taking differently:10 mg OralAs Needed, Reported on 07/26/2025 Allergy Relief 10 MG tabletIndication s:Seasonal allergic rhinitis due to pollen Take 1 tablet by mouth Daily. 30 tablet 3 07/31/20 24 Active Additional Information Patient taking differently:10 mg OralAs Needed, Patient reports Claritin, Reported on 07/26/2025 Vit-Fe Fumarate-FA ( vitamin 27-0.8) 27-0.8 MG [...] 60 tablet 6 05/20/20 25 Active methylphenidate (RITALIN) 5 MG tabletIndication [...] 06/26/20 25 Active Insulin Pen Needle (Pen Delia) 31G X 5 MM misc Use 1 each 4 (Four) Times a Day. 100 each 2 07/03/20 25 Active Concerta 36 MG CR tabletIndication s:ADHD, predominantly inattentive type TAKE ONE TABLET BY MOUTH EVERY MORNING 30 tablet 07/22/20 25 Active Insulin Glargine (LANTUS SOLOSTAR) 100 UNIT/ML injection pen Inject 12 Units under the skin into the appropriate area as directed Daily. 15 mL 1 07/24/20 25 Active Insulin Lispro, 1 Unit Dial, (HumaLOG KwikPen) 100 UNIT/ML solution pen-injector Inject 8 Units under the skin into the appropriate area as directed 3 (Three) Times a Day With Meals. Please take 15 minutes before each meal. 15 mL 07/24/20 25 Active omeprazole (priLOSEC) 20 MG capsule Take 1 capsule by mouth Every Night. Before dinner Active calcium carbonate (TUMS) 500 MG chewable tablet Chew 1 tablet As Needed for Indigestion or Heartburn. Active methylphenidate 36 MG CR tabletIndication s:ADHD, predominantly inattentive type Take 1 tablet by mouth Every Morning 30 tablet 05/27/20 25 2024 Discontinued Insulin Lispro, 1 Unit Dial, (HumaLOG KwikPen) 100 UNIT/ML solution pen-injector Inject 4 Units under the skin into the appropriate area as directed 3 (Three) Times a Day With Meals. Please take 15 minutes before each meal. 15 mL 07/03/20 25 2024 Discontinued Insulin Lispro, 1 Unit Dial, (HumaLOG KwikPen) 100 UNIT/ML solution pen-injector Inject 5 Units under the skin into the appropriate area as directed 3 (Three) Times a Day With Meals. Please take 15 minutes before each meal. 15 mL 07/11/20 25 2024 Discontinued Insulin Glargine (LANTUS SOLOSTAR) 100 UNIT/ML injection pen Inject 10 Units under the skin into the appropriate area as directed Daily. 15 mL 1 07/11/20 25 2024 Discontinued Insulin Lispro, 1 Unit Dial, (HumaLOG KwikPen) 100 UNIT/ML solution pen-injector Inject 7 Units under the skin into the appropriate area as directed 3 (Three) Times a Day With Meals. Please take 15 minutes before each meal. 15 mL 07/17/20 25 2024 Discontinued Active Problems Problem Noted [...] that on Tuesday she bent over to pick pulling machine tender her child and her heart rate went [...] all of which were normal. Referred to [facility] cardiology who completed echo 06/14/2024 which [...] need to switch to labetalol per her TIMBER REPAIRER Dr. Kimbrough at [facility]. Patient has been instructed to start out [...] all of which were normal. Referred to [facility] cardiology who completed echo 06/14/2024 which was normal and had nonconcerning Holter monitor. Initial metoprolol 25 mg ER daily, switch to propranolol 20 mg in the potential she could get in the future this would prefer medicine. Overall she is clinically feeling better on regimen medicine. Keep follow-up with [facility] cardiology. Assessment & Plan (06/14/2024 4:33 [...] Patient previously been using NuvaRing through her pavilion cutter, but has interested in switching over to [...] to treatment she could discuss with her OB/pavilion cutter currently with concern, about next treatment option. [...] indication for treatment UTI, advise any worsening. Insulin controlled gestation al diabetes mellitus (GDM) in third trimester 04/13/2023 Assessment & Plan (07/26/2025 8:27 AM EDT): Patient presents for follow-up growth ultrasound secondary to gestational diabetes requiring insulin. Blood glucoses were reviewed this week with plan to increase Lantus from 10 units to 12 units and plan to increase lispro from 7 units to 8 units. Today's ultrasound shows normal growth and normal amniotic fluid. Plan for follow-up in 4 weeks. Assessment & Plan (06/27/2025 1:14 PM EDT): Recently diagnosed. Has seen Diabetic Education. Has Dexcom. Reports elevated fastings though also with some lows. No clear pattern. Assessment & Plan (06/13/2025 1:34 PM EDT): Previous diagnosis of gestational diabetes with her 2022 , and recent testing through [employer] sports recruiter reveals what appears to be a failed 1 hour 2-hour and 3-hour glucose challenge test, as such it appears she is progressing to a similar pattern. No current medications at this time but keep regular follow-up with sports recruiter. 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 Santos, sports recruiter and [place]. Plan in place with potential complications of transition to [facility] if she delivers earlier has significant [...] diabetes mellitus. Nonetheless keep regular follow-up with OB/pavilion cutter who has placed her on glipizide 5 [...] diagnosis by review of her history, with Dexter forms showing the same. No comorbid sleep [...] with stability prefer to continue as per sports recruiter. Of note we had transiently held ADHD [...] diagnosis by review of her history, with Dexter forms showing the same. No comorbid sleep [...] with stability prefer to continue as per sports recruiter. Of note we had transiently held ADHD [...] diagnosis by review of her history, with Dexter forms showing the same. No comorbid sleep [...] diagnosis by review of her history, with Dexter forms showing the same. No comorbid sleep [...] diagnosis by review of her history, with Dexter forms showing the same. No comorbid sleep [...] diagnosis by review of her history, with Dexter forms showing the same. No comorbid sleep [...] diagnosis by review of her history, with Dexter forms showing the same. 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 Reinforced healthy diet, good activity level is [...] Encounters Date Type Department Care Team Description 07/26/2025 7:30 AM EDT Office Visit [facility] MAT[facility]NAL MED[facility]INE [address] [facility] [address] [place] [phone] Juan Miguel Marie MD Insulin controlled gestational diabetes mellitus (GDM) in third trimester (Primary Dx) 07/26/2025 7:27 AM EDT - 07/26/2025 11:59 PM EDT Hospital Encounter [facility] US PER DIAG CTR [address] [place] [phone] Bicornuate uterus; Diet controlled gestational diabetes mellitus (GDM) in third trimester Discharge Disposition: Home or Self Care 07/26/2025 Travel 07/24/2025 Medication Therapy Management [facility] [address] [facility] [address] [place] [phone] Daija Murray MD 07/20/2025 Refill [facility] PRIMARY CARE [address] [place] [address] [place] [address] Mingo Limon MD ADHD, predominantly inattentive type 07/17/2025 Medication Therapy Management [facility] [address] [facility] [address] [place] [phone] Daija Murray MD 07/16/2025 Education [facility] DIABETES ED [address] [facility] [address] [place] [address] Yelena De La Paz RN 07/11/2025 Medication Therapy Management [facility] MATERNAL MEDICINE [address] [facility] [address] [place] [address] Daija Murray MD 07/03/2025 Medication Therapy Management [facility] MAT[facility]NAL MEDICINE [address] [facility] [address] [place] [address] Daija Murray MD 07/03/2025 Telephone [facility]NAL MED[facility]INE [address] [facility] [address] [place] [phone] Vira Paniagua RN Advice Only 07/01/2025 11:45 AM EDT - 07/01/2025 11:59 PM EDT Hospital Encounter [facility] DIABETES ED [address] [facility] [address] [place] [address] Discharge Disposition: Home or Self Care 07/01/2025 Travel 06/27/2025 11:15 AM EDT Office Visit [facility] MAT[facility]NAL MEDICINE [address] [facility] [address] [place] [phone] Sarah George MD Bicornuate uterus (Primary Dx); Diet controlled gestational diabetes mellitus (GDM) in third trimester 06/27/2025 11:01 AM EDT - 06/27/2025 11:59 PM EDT Hospital Encounter [facility] US PER DIAG CTR [address] [place] [address] Sarah George MD Bicornuate uterus Discharge Disposition: Home or Self Care 06/27/2025 Documentation [facility]NAL MEDICINE [address] [facility] [address] [place] [address] Vira Paniagua RN 06/27/2025 Travel 06/24/2025 12:49 PM EDT - 06/24/2025 11:59 PM EDT Hospital Encounter [facility] DIABETES ED [address] [place] [address] Juan Miguel Marie MD Discharge Disposition: Home or Self Care 06/24/2025 Travel 06/13/2025 1:00 PM EDT Office Visit [facility] PRIMARY CARE [address] [place] [address] [place] [phone] Mingo Limon MD ADHD, predominantly inattentive type (Primary Dx); Anxiety and depression; Gestational diabetes mellitus (GDM) in second trimester controlled on oral hypoglycemic drug; Mixed hyperlipidemia; Palpitations 06/13/2025 Travel 05/27/2025 Refill [facility] PRIMARY [address] [place] [address] Mingo Limon MD ADHD, predominantly inattentive type 05/23/2025 10:30 AM EDT Office Visit [facility] MATERNAL MEDICINE [address] [place] [address] Sarah George MD Bicornuate uterus (Primary Dx) 05/23/2025 10:06 AM EDT - 05/23/2025 11:59 PM EDT Hospital Encounter [facility] US PER DIAG CTR [address] [place] [address] Milton Puentes MD 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, antepartum; History of delivery, currently ; Tachycardia; History of gestational diabetes in prior , currently ; , unspecified gestational age; Encounter for repeat ultrasound of pyelectasis, antepartum, not applicable or unspecified fetus Discharge Disposition: Home or Self Care 05/23/2025 Travel 05/16/2025 Telephone [facility] CARDIOLOGY [address] [place] [phone] Franchesca Sullivan, NIRAV 05/13/2025 Results Follow-Up [facility] PRIMARY CARE [address] [place] [address] [place] [phone] Mingo Limon MD 05/10/2025 1:15 PM EDT Office Visit [facility] PRIMARY CARE [address] [place] [address] [place] [address] Mingo Limon MD Acute cystitis without hematuria (Primary Dx); ADHD, predominantly inattentive type; Anxiety and depression 05/10/2025 12:30 PM EDT Office Visit [facility] CARDIOLOG[facility] [address] [place] [phone] Franchesca Sullivan APRN Palpitations (Primary Dx); Tachycardia 05/10/2025 Travel 05/08/2025 Telephone [facility] CARD[facility] [address] [place] [phone] Franchesca Sullivan APRN [facility]I [facility]-APOINTMENT from Last 3 Months Immunizations Immunization Administration [...] Pressure 108/67 07/26/2025 7:38 AM EDT Pulse 102 06/13/2025 1:04 PM EDT Temperature 36.6 C (97.8 F) 06/13/2025 12:55 PM EDT Respiratory Rate 20 05/10/2025 1:13 PM EDT Oxygen Saturation 98% 06/13/2025 12:55 PM EDT Inhaled Oxygen Concentration - - Weight 86.2 kg (190 lb) 07/26/2025 7:38 AM EDT Height 147.3 cm (4' 9.99 ) 06/13/2025 12:55 PM E DT Body Mass Index 39.72 06/13/2025 12:55 PM EDT Plan of Treatment Upcoming Encounters Date Type Department Care Team (Late st Contact Info) Description 08/09/2025 10:00 AM EDT Office Visit [facility] CARDIOLOG[facility] [address] [place] [phone] SeFranchesca he W, SILICA MIXER OPERATOR [address] [place] [address] 08/19/2025 8:45 AM EDT Office Visit [facility] PRIMARY CARE [address] [place] [phone] Mingo Limon MD [address] [place] [address] 08/23/2025 7:30 AM EDT Office Visit [facility] MATERNAL MEDICINE [address] [place] [address] 08/23/2025 7:30 AM EDT Appointment [facility] US PER DIAG CTR [address] [place] [address] Health Maintenance Due Date Last Done Comments MENINGOCOCCAL B VACCINE (1 o f 2 - Standard) 2018 HEPATITIS C SCREENING 07/30/2022 COVID-19 Vaccine (2023-2 5 season) 2024 10/12/2021, 04/01/2021, 03/04/2021 LIPID [...] 11/06/2034 024, 07/24/2013 HPV VACCINES Completed 05/23/2014, 02/2014, 07/24/2013 Pneumococcal Vaccine 0-49 Completed 2023, 04/24/2003, 04/24/2003, Additional history exists Procedures Procedure Name Priority Date/Time Associated Diagnosis Comments [facility] Routine 07/26/2025 8:11 AM EDT Bicornuate uterus Diet controlled gestational diabetes mellitus (GDM) in third trimester SCANNED - LABS 07/15/2025 SCANNED - LABS 07/15/2025 SCANNED - LABS 07/15/2025 [facility] Routine 06/27/2025 11:29 AM EDT Bicornuate uterus SCANNED - LABS 06/16/2025 SCANNED - IMAGING 06/16/2025 SCANNED - LABS 06/10/2025 [facility] Routine 05/23/2025 11:41 AM [...] Recently Relevant to Health Maintenance Results * [facility] [place] (07/26/2025 8:11 AM EDT) Only the most recent of3 resultswithin the time period is included. Anatomical Region Laterality Modality Ultrasound 07/26/2025 7:44 AM EDT Narrative 07/26/2025 8:29 AM EDT PAT NAME: KARMEN BRAVO MED REC#: [id number] DA: [id number] PAT GEND: F PAT TYPE: O EXAM RO: [id number] REF PHYS MILTON PUENTES Comparison Studies The [...] EFW (oz) 5 oz EFW by: Hadlock (ASI-IH-OE-FL) Extended Cav. septi pel. tr 7.7 mm [...] Normal Heart / Thorax 3-vessel view: Normal 1-xzqsid-kgqfljb view: normal Cord insertion: Normal Stomach: Appears [...] Follow-up as clinically indicated. Coding ======= Description: 20774-48 Follow Up Ultrasound Description: 55050-88 BPP without NST Sheet Metal Foreman: Radha Matson RDMS Physician: Juan Miguel Marie MD, FACOG Electronically signed by: Juan Miguel Marie MD, FACOG at: 08:29 Procedure Note Juan Miguel Marie MD - 07/26/2025 PAT NAME: KARMEN BRAVO MED REC#: [id number] DA: [id number] PAT GEND: F PAT TYPE: O EXAM RO: [id number] REF PHYS MILTON PUENTES Comparison Studies The findings of this study are compared to the prior ultrasound studydated 06/27/25 Patient Status Outpatient Indication ======== Gestational diabetes. Hx PPROM and PTD 32 wk. Morbid obesity BMI 40. Maternal Assessment Wfkach340 cm Height (ft)4 ft Height (in)9 in Xqrcvp75 kg Weight (lb)190 lb BMI40.35 kg/m Method ======= Transabdominal ultrasound examination ========= Rasmussen . Number of fetuses: 1 Dating ====== GA by prior w + 2 d CHANTE by prior [...] GA32 w + 2 d Assigned CHANTE:09/18/2025 [id number] d Biometry Standard BPD84.9 mm 34w 1d 90% Hadlock IVG573.0 mm 38w 4d >99% Yocasta HC320.2 mm 36w 1d 96% Hadlock Cerebellum tr45.0 mm 34w 4d 91% Hill AC277.3 mm 31w 6d 34% Hadlock Femur60.9 mm 31w 4d 21% Hadlock HC / AC1.15 EFW1,957 g 32w 0d 42% Hadlock EFW (lb)4 lb EFW (oz)5 oz EFW by:Hadlock (ILY-GL-DM-FL) Extended Cav. septi pel. tr7.7 mm CM5.1 mm 5% Nicolaides Head / Face / Neck Cephalic index0.75 9% Nicolaides Extremities / Bony Struc FL / BPD0.72 FL / HC0.19 FL / AC0.22 Other Structures [id number] bpm General Evaluation Cardiac activity present. FHR [...] LVOT view:Normal Heart / Thorax 3-vessel view:Normal 0-eugirj-hvsctey view:normal Cord insertion:Normal Stomach:Appears normal Kidneys:Appears normal [...] movements 2: tone 2: Amniotic fluid volume 8/8 Biophysical profile score Consultation / Office Visit Office note to follow Impression Today's exam reveals a SIUP in cephalic presentation with biometryconsistent with dates. Limited anatomic survey appears normal. TheAFI and BPP are normal. Recommendation Follow-up as clinically indicated. Coding ======= Description:68505-91 Follow Up Ultrasound Description:65314-07 BPP without NST Sheet Metal Foreman: Radha Matson RDMS Physician: Juan Miguel Marie MD, FACOG Electronically signed by: Juan Miguel Marie MD, FACOG at: 08:29 Sarah George MD IMG US ORDERABLES Final Result * LABS SCANNED (07/15/2025) Only the most recent of5 resultswithin the time period is included. Mingo Limon MD LAB BLOOD ORDERABLES Final Resul t * IMAGING SCANNED (06/16/2025) Only the most recent of2 resultswithin the time period is included. Anatomical Region Laterality Modality Radiographic Aurelia ging us Mingo Limon MD IMG DIAGNOSTIC IMAGING ORDERABLE S Final Result * Urine Culture - Urine, Urine, Clean Catch (05/10/2025 1:49 PM EDT) Urine Culture Final report [facility] Result 1 Comment [facility] Comment: Mixed urogenital biju 10,000-25,000 colony forming units per mL Urine Urine specimen obtained by clean catch procedure / Unknown 05/10/2025 1:49 PM EDT 05/10/2025 Comment:Urine Release to [facility] [place] [facility] (AMBULATORY) - 05/12/2025 6:37 AM EDT Performed at: - [address] [id number] Quartz Miner: Dagoberto Campbell PhD, Phone: [phone] us Mingo Limon MD MICROBIOLOGY - GENERAL ORDERABLE S Final Result [facility] [address] [place] [address], [facility] [address] [place] [address], * (ABNORMAL) POC Urinalysis Dipstick (05/10/2025 1:38 PM EDT) Color Dark Yellow Yellow, Straw, Dark Yellow, Char [facility] Clarity, UA Cloudy(A) Clear [facility] Glucose, UA Negative Negative mg/dL [facility] Bilirubin Negative Negative [facility] Ketones, UA Negative Negative [facility] Specific [place] 1.010 1.005 - 1.030 [facility] Blood, UA Negative Negative [facility] pH, Urine 8.0 5.0 - 8.0 [facility] Protein, POC Negative Negative mg/dL [facility] Urobilinogen, UA Normal Normal, 0.2 E.U./dL [facility] Leukocytes Large (3+)(A) Negative [facility] Nitrite, UA Negative Negative [facility] Urine 05/10/2025 1:3 8 PM EDT Mingo Limon MD POINT OF CARE TEST ORDERABLES Fi nal Result [facility]
[address] [place] [address], * LIQUID-BASED PAP SMEAR WITH HPV GENOTYPING IF ASCUS (GEENA,COR,MAD) (08/27/2024 9:58 AM EDT) Reference Lab Report [facility] [address] [place] [address] or [phone] Masood Herron M.D., Advertising Account Manager PATIENT NAME LABORATORY NO. 6[address] KARMEN BRAVO [id number] AGE SEX SSN CLIENT REF # [facility] ([facility]) 22 2000 F [id number] Anuradha RENDON REQUESTING Joe ATTENDING M.D. [place] [address] CECILIA CONTRERAS DATE COLLECTED DATE RECEIVED DATE [...] of chlamydial and gonococcal disease using the [place] system. WOOD MILLER: JOSHUA OSORIO (ASCP) CPT CODES: 05716, 72644, 05300 09/04/2024 10:12 AM EDT [facility] ThinPrep Vial Cervix uteri structure / Unknown Collection / Unknown 08/27/2024 9:58 AM EDT 08/27/2024 9:58 AM EDT Cecilia Contreras SILICA MIXER OPERATOR PATHOLOGY/CYTOLOGY ORDERA BLES Final Result [facility]
[address] [place] [address], * (ABNORMAL) Lipid Panel (05/21/2024 12:34 PM [...] - 05/22/2024 8:10 AM EDT Performed at: [address] [place] [id number] Quartz Miner: Dagoberto Campbell PhD, Phone: [phone] us Mingo Limon MD LAB BLOOD ORDERABLES Final Resul t [facility] ([facility]) [address] [place] [address], [place] [phone] [facility] [address] [place] [address], [place] [phone] from Last 3 Months or Most Recently Relevant to Health Maintenance Insurance [facility] [employer] Care Teams Upholstery Repairer Relationship Specialty Start Date End Date Mingo Limon MD [address] [place] [address] [place] [address] PCP - General Internal Medicine 07/30/22
--- OUTSIDE RECORDS SUMMARY | 2025-07-28 13:08 | XMS_ITS | Encounter Summary ---
Author Organization [facility] Address [address] [place] [address] Care Team Providers Care Asphalt Paver Operator Name Role Phone Mingo Limon MD Primary Care Provider [phone] Encounter Details Date Type Department Care Team [...] Description 08/09/2025 10:00 AM EDT Office Visit [facility] CARDIOLOGY [address] [place] [phone] Franchesca uSllivan W, BURGLAR ALARM SUPERINTENDENT [address] [place] [address] [place] [address] 08/19/2025 8:45 AM EDT Office Visit [facility] PRIMARY CARE [address] [place] [address] Mingo Limon MD [address] [place] [address] 08/23/2025 7:30 AM EDT Office Visit [facility] MATERNAL MEDICINE [address] [place] [address] 08/23/2025 7:30 AM EDT Appointment [facility] US PER DIAG CTR [address] [place] [address] documented as of this encounter Visit Diagnoses Not on filedocumented in this encounter Care Teams Asphalt Paver Operator Relationship Specialty Start Date End Date Mingo Limon MD [address] [place] [address] PCP - General Internal Medicine 07/30/22 documented as of this encounter
--- OUTSIDE RECORDS SUMMARY | 2025-07-28 13:08 | XMS_ITS | Encounter Summary ---
Author Organization [facility] Address [address] [place] [address] Care Team Providers Care Systems Technologist Name Role Phone Mingo Limon MD Primary Care Provider [phone] Reason for Visit * Reason Onset Date Comments FRANCHESCA BADILLO 05/08/2025 Encounter Details Date Type Department Care Team (Late st Contact Info) Description 05/08/[address] [facility] CARDIOLOGY [address] [place] [address] Franchesca Hare, OIL WELL SERVICE OPERATOR HELPER [address] [place] [address] [place] [address] FRANCHESCA HARE-LUIS Social History Tobacco Use Types [...] to patient: Self Best call back number: [phone] Chief complaint: Type of visit: FOLLOW UP [...] Description 08/09/2025 10:00 AM EDT Office Visit [facility] [address] [place] [address] Franchesca Hare, OIL WELL SERVICE OPERATOR HELPER [address] [place] [address] 08/19/2025 8:45 AM EDT Office Visit [facility]IMARY [facility] [address] [place] [address] [place] [address] Mingo Limon MD [address] [place] [address] [place] [address] 08/23/2025 7:30 AM EDT Office Visit [facility] MATERNAL MEDICINE [address] [place] [address] 08/23/2025 7:30 AM EDT Appointment [facility] [address] [place] [address] documented as of this encounter Visit Diagnoses Not on filedocumented in this encounter Care Teams Systems Technologist Relationship Specialty Start Date End Date Mingo Limon MD [address] [place] [address] [place] [address] PCP - General Internal Medicine 07/30/22 documented as of this encounter
--- OUTSIDE RECORDS SUMMARY | 2025-07-28 13:08 | XMS_ITS | Encounter Summary ---
Author Organization [facility] Address [address] [place] [address] Care Team Providers Care Federal Mediation Commissioner Name Role Phone Mingo Limon MD Primary Care Provider [phone] Encounter Details Date Type Department Care Team (Late st Contact Info) Description 07/17/2025 Medication Therapy Management [facility] MATERNAL MEDICINE [address] [place] [id number] Daija Murray MD [address] [place] [address] Social History Tobacco Use Types Packs/Day Years [...] Visit [facility] CARDIOLOGY [address] [place] [address] Franchesca Sullivan, MISSIONARY COORDINATOR [address] [place] [address] [place] [address] 08/19/2025 8:45 AM EDT Office Visit [facility] PRIMARY [facility]ARE [address] [place] [address] [place] [address] Mingo Limon MD [address] [place] [address] [place] [address] 08/23/2025 7:30 AM EDT Office Visit [facility] MED[facility]INE [address] [facility] [address] [place] [address] 08/23/2025 7:30 AM EDT Appointment [facility] [address] [place] [address] documented as of this encounter Visit Diagnoses Not on filedocumented in this encounter Care Teams Federal Mediation Commissioner Relationship Specialty Start Date End Date Mingo Limon MD [address] [place] [address] [place] [address] PCP - General Internal Medicine 07/30/22 documented as of this encounter
--- OUTSIDE RECORDS SUMMARY | 2025-07-28 13:08 | XMS_ITS | Clinical Summary ---
Author Organization [facility] Address [address] [place] [address] Care Team Providers Care Neuroscience Director Na Name Role Phone Pcp, No Primary Care [...] drink first t elyssa in the morning (EYE-CLINICAL APPLICATION MANAGER) to steady your nerves or to get [...] [facility]-Adult SDOH Screenings 2020 [facility]-Pap Smear 2023 [id number] Vaccine ( season) 2024 10/12/2021, 04/01/2021, 03/04/2021 [...] require contact precautions indefinitely. 05/07/2023 05/07/2023 Insurance [facility] Advance Directives * Full Code (Latest Code Status on File) Date Activated Date Inactivated Comments 05/03/2023 8:40 AM 05/09/2023 7:09 PM Question Answer Comments Patient has decision-making capacity? Yes Care Teams Neuroscience Director Na Relationship Specialty Start Date End Date Pcp, No [address] [place] [address] PCP - General Family Medicine 05/02/23
--- OUTSIDE RECORDS SUMMARY | 2025-07-28 13:09 | XMS_ITS | Encounter Summary ---
Author Organization [facility] Address [address] [place] [address] Care Team Providers Care Hospice Clinical Manager Name Role Phone Mingo Limon MD Primary Care Provider [phone] Encounter Details Date Type Department Care Team (Late st Contact Info) Description 07/24/2025 Medication Therapy Management [facility] MATERNAL MEDICINE [address] [id number] Daija Murray MD [address] [place] [address] Social History Tobacco Use Types Packs/Day Years [...] [facility] C[facility]OLOG[facility] [address] [place] [address] Franchesca Sullivan, RETAIL COSMETICS SALES BEAUTY ADVISOR [address] [place] [address] [place] [address] 08/19/2025 8:45 AM EDT Office Visit [facility] PRIMARY CARE [address] [place] [address] [place] [address] Mingo Limon MD [address] [place] [address] [place] [address] 08/23/2025 7:30 AM EDT Office Visit [facility] MATERNAL MEDICINE [address] [facility] [address] [place] [address] 08/23/2025 7:30 AM EDT Appointment [facility] [address] [place] [address] documented as of this encounter Visit Diagnoses Not on filedocumented in this encounter Care Teams Hospice Clinical Manager Relationship Specialty Start Date End Date Mingo Limon MD [address] [place] [address] [place] [address] PCP - General Internal Medicine 07/30/22 documented as of this encounter
--- OUTSIDE RECORDS SUMMARY | 2025-07-28 13:09 | XMS_ITS | Encounter Summary ---
Author Organization [facility] Address [address] [place] [address] Care Team Providers Care Gift Packer Name Role Phone Mingo Limon MD Primary Care Provider [phone] Reason for Visit * Reason Comments Med Refill Encounter Details Date Type Department Care Team (Late st Contact Info) Description 07/20/[address] [facility] PRIMARY CARE [address] [place] [address] [place] [address] Mingo Limon MD [address] [place] [address] ADHD, predominantly inattentive type Social [...] [facility] [address] [place] [address] Franchesca Sullivan, ASSOCIATE PASTOR [address] [place] [address] 08/19/2025 8:45 AM EDT Office Visit [facility] PRIMARY [facility] [address] [place] [address] [place] [address] Mingo Limon MD [address] [place] [address] [place] [address] 08/23/2025 7:30 AM EDT Office Visit 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
--- OUTSIDE RECORDS SUMMARY | 2025-07-28 13:12 | XMS_ITS | Encounter Summary ---
Author Organization [facility] Address [address] [place] [address] Care Team Providers Care Health Facilities Surveyor Name Role Phone Mingo Limon MD Primary Care Provider [phone] Encounter Details Date Type Department Care Team [...] Description 08/09/2025 10:00 AM EDT Office Visit [facility] CARDIOLOGY [address] [place] [address] Franchesca Sullivan W, GRAVITY MANAGER [address] [place] [address] 08/19/2025 8:45 AM EDT Office Visit [facility] PRIMARY CARE [address] [place] [phone] Mingo Limon MD [address] [place] [address] 08/23/2025 7:30 AM EDT Office Visit [facility] MATERNAL MEDICINE [address] [place] [address] 08/23/2025 7:30 AM EDT Appointment [facility] [address] [place] [address] documented as of this encounter Visit Diagnoses Not on filedocumented in this encounter Care Teams Health Facilities Surveyor Relationship Specialty Start Date End Date Mingo Limon MD [address] [place] [address] PCP - General Internal Medicine 07/30/22 documented as of this encounter
[2025-07-28 13:33] VITALS: BP 128/66; PULSE 113; RESP 19; TEMP 37.1; O2SAT 98; BMI 38.3
[2025-07-28 13:34] LABS: Microscopic, Urine URINE MICROSCOPIC (MICROSCOPIC)
[2025-07-28 13:47] LABS: Fetal Membrane Rupture (Rapid) Negative (Negative)
[2025-07-28 14:02] LABS: Bilirubin,Urine Negative (Negative); Color,Urine YELLOW (Yellow); Glucose,Urine (UA) Negative (Negative); Ketones,Urine Negative (Negative); Leukocyte Esterase,Urine 1+ (Negative); PH,Urine 7.0 (5.0-8.5); Protein,Urine Negative (Negative); Specific Gravity, Urine 1.015 (1.005-1.030); Urobilinogen,Urine 1.0 EU/dl (0.2)
[2025-07-28 14:58] LABS: Bacteria,Urine Trace /lpf
== END 2025-07-28 15:00 | disposition home or self-care (01) ==
LOC: OBOUT 13:06 → OB 13:07
PROVIDERS: PCP Pediatrics; Visit Provider Obstetrics & Gynecology
DX: O24.410 Gestational diabetes mellitus in pregnancy, diet controlled (principal); O10.913 Unspecified pre-existing hypertension complicating pregnancy, third trimester; O36.63X0 Maternal care for excessive fetal growth, third trimester, not applicable or unspecified; Z3A.31 31 weeks gestation of pregnancy
CPT/HCPCS: 59025; 81001; 84112; 87086; 99212; G0463

== ENCOUNTER 2025-07-30 12:06 | Outpatient (CLI) | payer OTHER, SELFPAY ==
--- OUTSIDE RECORDS SUMMARY | 2025-06-13 13:00 | XMS_ITS | Encounter Summary ---
Author Organization [facility] Address [address] [place] [address] Care Team Providers Care Draughtsman Name Role Phone Mingo Limon MD Primary Care Provider [phone] Reason for Visit * Reason Comments Med Refill Encounter Details Date Type Department Care Team (Late st Contact Info) Description 06/13/2025 1:00 PM EDT Office Visit [facility] PRIMARY CARE [address] [place] [address] [place] [address] Mingo Limon MD [address] [place] [address] ADHD, predominantly inattentive type (Primary Dx); Anxiety [...] all of which were normal. Referred to [facility] cardiology who completed echo 06/14/2024 which was [...] , and recent testing through [facility] outbound supervisor reveals what appears to be a failed 1 hour 2-hour and 3-hour glucose challenge test, as such it appears she is progressing to a similar pattern. No current medications atthis time but keep regular follow-up with outbound supervisor. Of note she had been placed in [...] diagnosis by review of her history, with [place] forms showing the same. No comorbid sleep difficulty. Final prescription had been methylphenidate ER 36 mg dosing, but discontinued when she completed high school and she felt like she no longer required it. Comorbid anxiety and depressive symptoms, which see benefit of treatment of ADHD symptoms. Resumption on 07/18/2023 of methylphenidate ER 36 mg tablet, with continued good control. She continues to be pleased with how she is doing from ADHD treatment perspective no concerning side effectsincluding no headache, stomach upset, personality suppression, on/off affect, appetite suppression.She is having some shorter duration of benefit, wearing off after about 5 or 6 hours. Such we addedmidday dosing with methylphenidate 5 mg as of 08/17/2024 with additional efficacy and duration. As such we will continue unchanged, refills provided for methylphenidate ER 36 mg number 30 tablets and m ethylphenidate 5 mg midday, number 30 tablets both refilled on 05/27/2025 and S that she is not quite due but call when she is due for next month's refill. She is currently at 26 weeks gestation as of 06/13/2025, but doing well on regimen and with stability prefer to continue as per outbound supervisor. Of note we had transiently held [...] no SI/HI and handling her stressors appropriately. Microsoft Windows Engineer has recommendedher to continue on the regimen [...] diagnosis by review of her history, with [place] forms showing the same. No comorbid sleep [...] with stability prefer to continue as per outbound supervisor. Of note we had transiently held [...] , and recent testing through [facility] Abraham outbound supervisor reveals what appears to be a failed 1 hour 2-hour and 3-hour glucose challenge test, as such it appears she is progressing to a similar pattern. No current medications atthis time but keep regular follow-up with outbound supervisor. Of note she had been placed in [...] all of which were normal. Referred to [facility] who completed echo 06/14/2024 which [...] follow up, ADHD monitoring. Mingo Limon MD [facility] documented in this encounter Plan of Treatment Upcoming Encounters Date Type Department Care Team (Late st Contact Info) Description 08/09/2025 10:00 AM EDT Office Visit [facility] CARDIOLOGY [address] [place] [phone] Franchesca Sullivan, OBSTETRICS SCRUB NURSE [address] [place] [address] 08/19/2025 8:45 AM EDT Office Visit [facility] PRIMARY CARE [address] [place] [address] [place] [phone] Mingo Limon MD [address] [place] [address] [place] [address] 08/23/2025 7:30 AM EDT Office Visit [facility] MATERNAL MEDICINE [address] [place] [address] 08/23/2025 7:30 AM EDT Appointment [facility] US PER DIAG CTR [address] [place] [address] documented as of this encounter Visit Diagnoses Diagnosis ADHD, predominantly inattentive type- Primary Attention deficit disorder without mention of hyperactivity Anxiety and depression Gestational diabetes mellitus (GDM) in second trimester controlled on oral hypoglycemic drug Mixed hyperlipidemia Palpitations documented in this encounter Care Teams Draughtsman Relationship Specialty Start Date End Date Mingo Limon MD [address] [place] [address] PCP - General Internal Medicine 07/30/22 documented as of this encounter
--- OUTSIDE RECORDS SUMMARY | 2025-06-24 12:49 | XMS_ITS | Encounter Summary ---
Author Organization [facility] Address [address] [place] [address] Care Team Providers Care Community Product Specialist Name Role Phone Mingo Limon MD Primary Care Provider [phone] Encounter Details Date Type Department Care Team (Late st Contact Info) Description 06/24/2025 12:49 PM EDT - 06/24/2025 11:59 PM EDT Hospital Encounter [facility] DIABETES ED [address] [place] [address] Juan Miguel Marie MD [address] [facility] [address] [place] [phone] Discharge Disposition: Home or Self Care Social [...] use EPIC. If you are not an [employer] user a copy of patient's assessment and notes will be sent per routine. Thank you. documented in this encounter Plan of Treatment Upcoming Encounters Date Type Department Care Team (Late st Contact Info) Description 08/09/2025 10:00 AM EDT Office Visit [facility] CARDIOLOGY [address] [place] [address] SeFranchesca he, BRANCH OPERATIONS COORDINATOR [address] [place] [address] 08/19/2025 8:45 AM EDT Office Visit [facility] PRIMARY CARE [address] [place] [address] [place] [address] Mingo Limon MD [address] [place] [address] [place] [address] 08/23/2025 7:30 AM EDT Office Visit [facility] MATERNAL MEDICINE [address] [place] [address] 08/23/2025 7:30 AM EDT Appointment [facility] US PER DIAG CTR [address] [place] [address] documented as of this encounter Visit Diagnoses Not on filedocumented in this encounter Care Teams Community Product Specialist Relationship Specialty Start Date End Date Mingo Limon MD [address] [place] [address] [place] [address] PCP - General Internal Medicine 07/30/22 documented as of this encounter
--- OUTSIDE RECORDS SUMMARY | 2025-06-27 11:01 | XMS_ITS | Encounter Summary ---
Author Organization [facility] Address [address] [place] [address] Care Team Providers Care Technical Assoc Name Role Phone Mingo Limon MD Primary Care Provider [phone] Reason for Referral * Diagnostic Imaging (Routine) - Closed Specialty Diagnoses / Procedures Referred By Hansel t Referred To Contact Radiology Diagnoses Bicornuate uterus Procedures [facility] Diagnostic [place] Sarah George MD [address] [address] Phone: tel: fax: [facility] US PER DIAG CTR [address] [place] [address] Phone: tel: Referral ID Status Reason Start Date Expiration Date Visits Re quested Visits Authorized [id number] Closed 05/23/2025 08/22/2026 1 1 Reason for Visit * Diagnostic Imaging (Routine) - Closed Specialty Diagnoses / Procedures Referred By Contac t Referred To Contact Radiology Diagnoses Bicornuate uterus Procedures [facility] Diagnostic [place] Sarah George MD [address] [address] Phone: tel: fax: [facility] US PER DIAG CTR [address] [place] [address] Phone: tel: Referral ID Status Reason Start Date Expiration Date Visits Re quested Visits Authorized [id number] Closed 05/23/2025 08/22/2026 1 1 Encounter Details Date Type Department Care Team (Late st Contact Info) Description 06/27/2025 11:01 AM EDT - 06/27/2025 11:59 PM EDT Hospital Encounter [facility] PER DIAG CTR [address] [place] [address] Sarah [facility] [facility] [address] [place] [address] Bicornuate uterus Discharge Disposition: Home [...] Description 08/09/2025 10:00 AM EDT Office Visit [facility] CARDIOLOGY [address] [address] Franchesca Sullivan, WORKCELL OPERATOR [address] [place] [address] 08/19/2025 8:45 AM EDT Office Visit [facility] PRIMARY CARE [address] [place] [address] Mingo Limon MD [address] [place] [address] 08/23/2025 7:30 AM EDT Office Visit [facility] [facility] [address] [place] [address] 08/23/2025 7:30 AM EDT Appointment [facility] US PER DIAG CTR [address] [place] [address] documented as of this encounter Procedures Procedure Name Priority Date/Time Associated Diagnosis Comments [facility] Routine 06/27/2025 11:29 AM EDT Bicornuate uterus documented in this encounter Results * [facility] (06/27/2025 11:29 AM EDT) Anatomical Region Laterality Modality Ultrasound 06/27/2025 11:1 7 AM EDT Narrative 07/02/2025 8:14 PM EDT PAT NAME: KARMEN GU MED REC#: [id number] DA: [id number] PAT GEND: F PAT TYPE: O EXAM RO: [id number] REF PHYS MILTON PUENTES Comparison Studies The [...] EFW (oz) 12 oz EFW by: Hadlock ([id number]-FL) Extended Cav. septi pel. tr 6.9 mm [...] Normal Heart / Thorax 3-vessel view: Normal 7-slrevb-ubetahn view: normal Stomach: Appears normal Kidneys: Appears normal Bladder: Appears normal Gender: male Wants to know gender: yes Impression ========= Cephalic S=D Normal appearing limited anatomy Normal fluid Recommendation FOllow up 4 weeks Coding ====== Description: 51389-58 Follow Up Carbide Tool Maker: Myranda De La Torre RDMS Physician: Sarah George MD, FACOG Electronically signed by: Sarah George MD, FACOG at: 20:14 Procedure Note Sarah George MD - 07/02/2025 PAT NAME: KARMEN GU MED REC#: [id number] DA: [id number] PAT GEND: F PAT TYPE: O EXAM RO: [id number] REF PHYS MILTON PUENTES Comparison Studies The findings of this study are compared to the prior ultrasound studydated 05/23/25 Patient Status Outpatient Indication ======== Gestational diabetes. Hx PPROM and PTD 32 wk. Morbid obesity BMI 40. Maternal Assessment Ixkhsq841 cm Height (ft)4 ft Height (in)9 in Wilwpg02 kg Weight (lb)188 lb BMI40.01 kg/m Method ======= Transabdominal ultrasound examination. View: Adequate view ========= Rasmussen . Number of fetuses: 1 Dating ====== Method of dating:based on stated CHANTE GA by prior [id number] w + 1 d CHANTE by prior assessment:09/18/2025 Ultrasound examination on:06/27/2025 GA by U/S based upon:AC, BPD, Femur, HC GA by U/S29 w + 1 d CHANTE by U/S:09/11/2025 Previous dating:based on stated CHANTE, selected on 05/23/2025 Agreed CHANTE of previous datin09/18/2025 Assigned:based on stated CHANTE, selected on 06/27/2025 Assigned GA28 w + 1 d Assigned CHANTE:09/18/2025 [id number] d Biometry Standard BPD74.3 mm 29w 6d 87% Hadlock OFD99.6 mm 32w 1d >99% Yocasta HC278.2 mm 30w 3d 86% Hadlock Cerebellum tr38.5 mm 31w 2d >99% Hill AC244.8 mm 28w 5d 61% Hadlock Femur51.4 mm 27w 3d 18% Hadlock Ixcsbok65.3 mm 27w 6d 34% Yocasta HC / AC1.14 EFW1,245 g 28w 1d 53% Hadlock EFW (lb)2 lb EFW (oz)12 oz EFW by:Hadlock ([id number]-GW-FL) Extended Cav. septi pel. tr6.9 mm CM8.0 mm 82% Nicolaides Head / Face / Neck Cephalic index0.75 11% Nicolaides Extremities / Bony Struc FL / BPD0.69 FL / HC0.18 FL / AC0.21 Other Structures BKO454 bpm General Evaluation Cardiac activity present. FHR [...] LVOT view:Normal Heart / Thorax 3-vessel view:Normal 6-ofzefg-kzkhcrd view:normal Stomach:Appears normal Kidneys:Appears normal Bladder:Appears normal Gender:male Wants to know gender:yes Impression ========= Cephalic S=D Normal appearing limited anatomy Normal fluid Recommendation FOllow up 4 weeks Coding ====== Description:16735-05 Follow Up Carbide Tool Maker: Myranda De La Torre RDMS Physician: Sarah George MD, FACOG Electronically signed by: Sarah George MD, FACOG at: 20:14 us Sarah George MD IMG US ORDERABLES Final Result documented in this encounter Visit Diagnoses Diagnosis Bicornuate uterus documented in this encounter Care Teams Technical Assoc Relationship Specialty Start Date End Date Mingo Limon MD [address] [place] [address] [place] [address] PCP - General Internal Medicine 07/30/22 documented as of this encounter
--- OUTSIDE RECORDS SUMMARY | 2025-06-27 11:15 | XMS_ITS | Encounter Summary ---
Author Organization [facility] Address [address] [place] [address] Care Team Providers Care Planer Mill Grader Name Role Phone Mingo Limon MD Primary Care Provider Reason for Referral * Diagnostic Imaging (Routine) - Closed Specialty Diagnoses / Procedures Referred By Arlethac t Referred To Contact Radiology Diagnoses Bicornuate uterus Diet controlled gestational diabetes mellitus (GDM) in third trimester Procedures [facility] Sarah George MD [address] [facility] [address] [place] [address] Phone: tel: fax: [facility] PER DIAG CTR [address] [place] [address] Phone: tel: Referral ID Status Reason Start Date Expiration Date Visits Re quested Visits Authorized [id number] Closed 07/02/2025 10/01/2026 1 1 Reason for Visit * Reason Comments GDM, bicornate ut, hx 32 wk PTD, MO Encounter Details Date Type Department Care Team (Late st Contact Info) Description 06/27/2025 11:15 AM EDT Office Visit [facility] MATERNAL MEDICINE [address] [facility] [address] [place] [address] Sarah George MD [address] [facility] [address] [place] [address] Bicornuate uterus (Primary Dx); Diet controlled gestational [...] under imaging tab of patient chart in [facility] (Viewpoint report). Sarah George MD documented in this encounter Plan of Treatment Upcoming Encounters Date Type Department Care Team (Late st Contact Info) Description 08/09/2025 10:00 AM EDT Office Visit [facility] CARDIOLOGY [address] [place] [address] Franchesca Sullivan, MAINTENANCE SUPERVISOR 2ND SHIFT [address] [place] [address] [place] [address] 08/19/2025 8:45 AM EDT Office Visit [facility] PRIMARY CARE [address] [place] [address] [place] [address] Mingo Limon MD [address] [place] [address] [place] [address] 08/23/2025 7:30 AM EDT Office Visit [facility] MATERNAL MEDICINE [address] [place] [address] 08/23/2025 7:30 AM EDT Appointment [facility] US PER DIAG CTR [address] [place] [address] documented as of this encounter Results * [facility] (07/26/2025 8:11 AM EDT) Anatomical Region Laterality Modality Ultrasound 07/26/2025 7:44 AM EDT Narrative 07/26/2025 8:29 AM EDT PAT NAME: KARMEN GU MED REC#: [id number] DA: 2000 PAT GEND: F PAT TYPE: O EXAM RO: [id number] REF PHYS MILTON PUENTES Comparison Studies The [...] EFW (oz) 5 oz EFW by: Hadlock ([id number]-[id number]-[id number]-FL) Extended Cav. septi pel. tr 7.7 mm [...] Normal Heart / Thorax 3-vessel view: Normal 4-jsgbgn-qbqfpqv view: normal Cord insertion: Normal Stomach: Appears [...] Follow-up as clinically indicated. Coding ======= Description: 07990-57 Follow Up Ultrasound Description: 73991-11 BPP without NST Armature Bander: Radha Matson RDMS Physician: Juan Miguel Marie MD, FACOG Electronically signed by: Juan Miguel Marie MD, FACOG at: 08:29 Procedure Note Juan Miguel Marie MD - 07/26/2025 PAT NAME: KARMEN GU MED REC#: [id number] DA: 2000 PAT GEND: F PAT TYPE: O EXAM RO: [id number] REF PHYS DHAVAL MILTON Comparison Studies The findings of this study are compared to the prior ultrasound studydated 06/27/25 Patient Status Outpatient Indication ======== Gestational diabetes. Hx PPROM and PTD 32 wk. Morbid obesity BMI 40. Maternal Assessment Wpecpp011 cm Height (ft)4 ft Height (in)9 in Qksiwb21 kg Weight (lb)190 lb BMI40.35 kg/m Method ======= Transabdominal ultrasound examination ========= Rasmussen . Number of fetuses: 1 Dating ====== GA by prior jcejziavhq68 w + 2 d CHANTE by prior assessment:09/18/2025 Ultrasound examination on:07/26/2025 GA by U/S based upon:AC, BPD, Femur, HC GA by U/S33 w + 3 d CHANTE by U/S:09/10/2025 Method of dating:Restore dating from previous exam Previous dating:based on stated CHANTE, selected on 06/27/2025 Agreed HCANTE of previous datin09/18/2025 Assigned:based on stated CHANTE, selected on 06/27/2025 Assigned GA32 w + 2 d Assigned CHANTE:09/18/2025 aanxqt202 d Biometry Standard BPD84.9 mm 34w 1d 90% Hadlock DIK460.0 mm 38w 4d >99% Yocasta HC320.2 mm 36w 1d 96% Hadlock Cerebellum tr45.0 mm 34w 4d 91% Hill AC277.3 mm 31w 6d 34% Hadlock Femur60.9 mm 31w 4d 21% Hadlock HC / AC1.15 EFW1,957 g 32w 0d 42% Hadlock EFW (lb)4 lb EFW (oz)5 oz EFW by:Hadlock (NNH-DL-HH-FL) Extended Cav. septi pel. tr7.7 mm CM5.1 mm 5% Nicolaides Head / Face / Neck Cephalic index0.75 9% Nicolaides Extremities / Bony Struc FL / BPD0.72 FL / HC0.19 FL / AC0.22 Other Structures YFQ640 bpm General Evaluation Cardiac activity present. FHR [...] LVOT view:Normal Heart / Thorax 3-vessel view:Normal 0-ncmslp-vlpibme view:normal Cord insertion:Normal Stomach:Appears normal Kidneys:Appears normal Bladder:Appears normal Gender:male Wants to know gender:yes Maternal Structures Uterus / Cervix Cervical .9 mm Doppler Arterial Umbilical A PI1.05 77% [...] Recommendation Follow-up as clinically indicated. Coding ======= Description:61482-89 Follow Up Ultrasound Description:00629-76 BPP without NST Armature Bander: Radha Matson RDMS Physician: Juan Miguel Marie [...] trimester documented in this encounter Care Teams Planer Mill Grader Relationship Specialty Start Date End Date Mingo Limon MD [address] [place] [address] [place] [address] PCP - General Internal Medicine 07/30/22 documented as of this encounter
--- OUTSIDE RECORDS SUMMARY | 2025-07-01 11:45 | XMS_ITS | Encounter Summary ---
Author Organization [facility] Address [address] [place] [address] Care Team Providers Care Windows Support Engineer Name Role Phone Mingo Limon MD Primary Care Provider [phone] Encounter Details Date Type Department Care Team (Latest Contact Info) Description 07/01/2025 11:45 AM EDT - 07/01/2025 11:59 PM EDT Hospital Encounter [facility] DIABETES ED [address] [facility] [address] [place] [address] Discharge Disposition: Home or Self [...] 180 tablet 1 06/13/2025 Continuous Glucose Sensor (Moneythinkcom G7 Sensor) [facility] USE As directed EVERY 10 DAYS [...] for assessment and notes if you use [employer]. If you are not an [employer] user a copy of patient's assessment and notes will be sent per routine. Thank you. Electronically signed by: Yelena De La Paz RN, [facility] 07/01/25 12:42 EDT documented in this encounter Plan of Treatment Upcoming Encounters Date Type Department Care Team (Late st Contact Info) Description 08/09/2025 10:00 AM EDT Office Visit [facility] CARDIOLOGY [address] [place] [address] SeFranchesca he, WARP PLACER [address] [place] [address] 08/19/2025 8:45 AM EDT Office Visit [facility] PRIMARY CARE [address] [place] [address] Mingo Limon MD [address] [place] [address] [place] [address] 08/23/2025 7:30 AM EDT Office Visit [facility] MATERNAL MEDICINE [address] [place] [address] 08/23/2025 7:30 AM EDT Appointment [facility] US PER DIAG CTR [address] [place] [address] documented as of this encounter Visit Diagnoses Not on filedocumented in this encounter Care Teams Windows Support Engineer Relationship Specialty Start Date End Date Mingo Limon MD [address] [place] [address] PCP - General Internal Medicine 07/30/22 documented as of this encounter
--- OUTSIDE RECORDS SUMMARY | 2025-07-26 07:27 | XMS_ITS | Encounter Summary ---
Author Organization [facility] Address [address] [place] [address] Care Team Providers Care Precision Printing Worker Name Role Phone Mingo Limon MD Primary Care Provider [phone] Reason for Referral * Diagnostic Imaging (Routine) - Closed Specialty Diagnoses / Procedures Referred By Hansel Referred To Contact Radiology Diagnoses Bicornuate uterus Diet controlled gestational diabetes mellitus (GDM) in third trimester Procedures [facility] Sarah George MD [address] [address] Phone: tel: fax: [facility] PER DIAG [facility] [address] [place] [address] Phone: tel: Referral ID Status Reason Start Date Expiration Date Visits Re quested Visits Authorized Closed 07/02/2025 10/01/2026 1 1 Reason for Visit * Diagnostic Imaging (Routine) - Closed Specialty Diagnoses / Procedures Referred By Contac Referred To Contact Radiology Diagnoses Bicornuate uterus Diet controlled gestational diabetes mellitus (GDM) in third trimester Procedures [facility] Sarah George MD [address] [facility] [address] [place] [address] Phone: tel: fax: [facility] PER DIAG CTR [address] [place] [address] Phone: tel: Referral ID Status Reason Start Date Expiration Date Visits Re quested Visits Authorized [id number] Closed 07/02/2025 10/01/2026 1 1 Encounter Details Date Type Department Care Team (Late st Contact Info) Description 07/26/2025 7:27 AM EDT - 07/26/2025 11:59 PM EDT Hospital Encounter [facility] PER DIAG CTR [address] [place] [address] Sarah George MD [facility] [facility] [address] [address] [place] [address] Bicornuate uterus; Diet controlled gestational diabetes mellitus (GDM) in third trimester Discharge Disposition: Home or Self Care Social [...] albuterol sulfate HFA 108 (90 Base) MCG/ACT inhalerIndications :Mild intermittent asthma without complication Inhale 2 puffs Every 4 (Four) Hours As Needed for Wheezing. 18 g 2 11/06/2024 Allergy Relief 10 MG tabletIndications: Seasonal allergic rhinitis due to pollen Take 1 tablet by mouth Daily. 30 tablet 3 07/31/2024 budesonide-formote rol (Symbicort) 160-4.5 MCG/ACT inhalerIndications :Mild intermittent asthma with acute exacerbation Inhale 2 puffs Every 4 (Four) Hours As Needed (Asthma). Rinse mouth with water after each use 10.2 g 1 12/11/2024 buPROPion XL (WELLBUTRIN XL) 300 MG 24 hr tabletIndications: Anxiety and depression Take 1 tablet by mouth Daily. 90 tablet 1 06/13/2025 busPIRone (BUSPAR) 15 MG tabletIndications: Anxiety and depression Take 1 tablet by mouth 2 (Two) Times a Day. 180 tablet 1 06/13/2025 calcium carbonate (TUMS) 500 MG chewable tablet Chew 1 tablet As Needed for Indigestion or Heartburn. Concerta 36 MG CR tabletIndications: ADHD, predominantly inattentive type TAKE ONE TABLET BY MOUTH EVERY MORNING 30 tablet 07/22/2025 Continuous Glucose Sensor (Dexcom G7 Sensor) misc USE As directed EVERY 10 DAYS 06/26/2025 escitalopram (LEXAPRO) 20 MG tabletIndications: Anxiety and depression Take 1 tablet by mouth Daily. 90 tablet 1 04/09/2025 fluticasone (FLONASE) 50 MCG/ACT nasal sprayIndications:S easonal allergic rhinitis due to pollen 2 sprays into the nostril(s) as directed by provider Daily. 15.8 mL 3 03/01/2024 Insulin Glargine (LANTUS SOLOSTAR) 100 UNIT/ML injection pen Inject 12 Units under the skin into the appropriate area as directed Daily. 15 mL 1 07/24/2025 Insulin Lispro, 1 Unit Dial, (HumaLOG KwikPen) 100 UNIT/ML solution pen-injector Inject 8 Units under the skin into the appropriate area as directed 3 (Three) Times a Day With Meals. Please take 15 minutes before each meal. 15 mL 07/24/2025 Insulin Pen Needle (Pen Blunt) 31G X 5 MM misc Use 1 each 4 (Four) Times a Day. 100 each 2 07/03/2025 labetalol (NORMODYNE) 200 MG tabletIndications: Palpitations Take 1 tablet by mouth 2 (Two) Times a Day. 60 tablet 6 05/20/2025 methylphenidate (RITALIN) 5 MG tabletIndications: ADHD, predominantly inattentive type 1 tablet orally at noon 30 tablet 05/27/2025 montelukast (Singulair) 10 MG tabletIndications: Seasonal allergic rhinitis due to pollen Take 1 tablet by mouth Every Night. 30 tablet 3 03/01/2024 omeprazole (priLOSEC) 20 MG capsule Take 1 capsule by mouth Every Night. Before dinner Vit-Fe Fumarate-FA ( vitamin 27-0.8) 27-0.8 MG tablet tablet Take 1 tablet by mouth Daily. documented as of this encounter Plan of Treatment Upcoming Encounters Date Type Department Care Team (Late st Contact Info) Description 08/09/2025 10:00 AM EDT Office Visit [facility] CARDIOLOGY [address] [place] [address] Franchesca Sullivan, RIB CUTTER [address] [place] [address] 08/19/2025 8:45 AM EDT Office Visit [facility] PRIMARY CARE [address] [place] [address] [place] [address] Mingo Limon MD [address] [place] [address] [place] [address] 08/23/2025 7:30 AM EDT Office Visit [facility] MATERNAL MEDICINE [address] [place] [address] 08/23/2025 7:30 AM EDT Appointment [facility] PER DIAG [facility] [address] [place] [address] documented as of this encounter Procedures Procedure Name Priority Date/Time Associated Diagnosis Comments [facility] Routine 07/26/2025 8:11 AM EDT Bicornuate uterus Diet controlled gestational diabetes mellitus (GDM) in third trimester documented in this encounter Results * [facility] (07/26/2025 8:11 AM EDT) Anatomical Region Laterality Modality Ultrasound 07/26/2025 7:44 AM EDT Narrative 07/26/2025 8:29 AM EDT PAT NAME: KARMEN GU MED REC#: [id number] DA: 2000 PAT GEND: F PAT TYPE: O EXAM RO: [id number] REF PHYS MILTON PUENTES Comparison Studies The [...] EFW (oz) 5 oz EFW by: Hadlock ([id number]) Extended Cav. septi pel. tr 7.7 mm [...] Normal Heart / Thorax 3-vessel view: Normal 1-duaqmq-hnpvoai view: normal Cord insertion: Normal Stomach: Appears [...] Follow-up as clinically indicated. Coding ======= Description: 62247-55 Follow Up Ultrasound Description: 96345-91 BPP without NST Sales Applications Engineer: Radha Matson RDMS Physician: Juan Miguel Marie MD, FACOG Electronically signed by: Juan Miguel Marie MD, FACOG at: 08:29 Procedure Note Juan Miguel Marie MD - 07/26/2025 PAT NAME: KARMEN GU MED REC#: [id number] DA: 2000 PAT GEND: F PAT TYPE: O EXAM RO: [id number] REF PHYS MILTON PUENTES Comparison Studies The findings of this study are compared to the prior ultrasound studydated 06/27/25 Patient Status Outpatient Indication ======== Gestational diabetes. Hx PPROM and PTD 32 wk. Morbid obesity BMI 40. Maternal Assessment Lwracw583 cm Height (ft)4 ft Height (in)9 in Uarokx50 kg Weight (lb)190 lb BMI40.35 kg/m Method ======= Transabdominal ultrasound examination ========= Rasmussen . Number of fetuses: 1 Dating ====== GA by prior [id number] w + 2 d CHANTE by prior [...] GA32 w + 2 d Assigned CHANTE:09/18/2025 [id number] d Biometry Standard BPD84.9 mm 34w 1d 90% Hadlock YDV845.0 mm 38w 4d >99% Yocasta HC320.2 mm 36w 1d 96% Hadlock Cerebellum tr45.0 mm 34w 4d 91% Hill AC277.3 mm 31w 6d 34% Hadlock Femur60.9 mm 31w 4d 21% Hadlock HC / AC1.15 EFW1,957 g 32w 0d 42% Hadlock EFW (lb)4 lb EFW (oz)5 oz EFW by:Hadlock (VAL-UX-[id number]-FL) Extended Cav. septi pel. tr7.7 mm CM5.1 mm 5% Nicolaides Head / Face / Neck Cephalic index0.75 9% Nicolaides Extremities / Bony Struc FL / BPD0.72 FL / HC0.19 FL / AC0.22 Other Structures SVZ288 bpm General Evaluation Cardiac activity present. FHR [...] LVOT view:Normal Heart / Thorax 3-vessel view:Normal 6-nmcbvy-dvscgiv view:normal Cord insertion:Normal Stomach:Appears normal Kidneys:Appears normal Bladder:Appears normal Gender:male Wants to know gender:yes Maternal Structures Uterus / Cervix Cervical igkuta00.9 mm Doppler Arterial Umbilical A PI1.05 77% [...] Recommendation Follow-up as clinically indicated. Coding ======= Description:34599-67 Follow Up Ultrasound Description:72502-09 BPP without NST Sales Applications Engineer: Radha Matson RDMS Physician: Juan Miguel Marie MD, FACOG Electronically signed by: Juan Miguel Marie MD, FACOG at: 08:29 us Sarah George MD IMG US ORDERABLES Final Result documented in this encounter Visit Diagnoses Diagnosis Bicornuate uterus Diet controlled gestational diabetes mellitus (GDM) in third trimester documented in this encounter Care Teams Precision Printing Worker Relationship Specialty Start Date End Date Mingo Limon MD [address] [place] [address] [place] [address] PCP - General Internal Medicine 07/30/22 documented as of this encounter
--- OUTSIDE RECORDS SUMMARY | 2025-07-26 07:30 | XMS_ITS | Encounter Summary ---
Author Organization [facility] Address [address] [place] [address] Care Team Providers Care Rare/Endangered Species Specialist Name Role Phone Mingo Limon MD Primary Care Provider [phone] Reason for Referral * Diagnostic Imaging (Routine) - Authorized Specialty Diagnoses / Procedures Referred By Contac t Referred To Contact Radiology Diagnoses Insulin controlled gestational diabetes mellitus (GDM) in third trimester Procedures [facility] Juan Miguel Marie MD [address] [place] [address] Phone: tel: fax: Referral ID Status Reason Start Date Expiration Date V isits Requested Visits Authorized [id number] Authorized 07/26/2025 10/25/2026 1 1 Reason for Visit * Reason Comments GDM, hx PTD @ 32 wks Encounter Details Date Type Department Care Team (Late st Contact Info) Description 07/26/2025 7:30 AM EDT Office Visit [facility]ICINE [address] [facility] [address] [place] [id number] Juan Miguel Marie MD [address] [place] [address] Insulin controlled gestational diabetes mellitus (GDM) in [...] 0 Continuous Glucose Sensor (Dexcom G7 Sensor) [facility], USE As directed EVERY 10 DAYS, Disp: [...] Disp: , Rfl: Insulin Pen Needle (Pen [facility]) 31G X 5 MM misc, Use 1 [...] follow-up in 4 weeks. Orders: - US [facility] [place]; Future Follow Up 4-week I spent 10 [...] Juan Miguel Marie MD, FACOG Maternal Medicine, [facility] documented in this encounter Plan of Treatment Upcoming Encounters Date Type Department Care Team (Late st Contact Info) Description 08/09/2025 10:00 AM EDT Office Visit [facility] CARDIOLOGY [address] [place] [id number] Franchesca Sullivan, NIRAV [address] [place] [address] 08/19/2025 8:45 AM EDT Office Visit [facility] PRIMARY CARE [address] [place] [address] [place] [phone] Mingo Limon MD [address] [place] [address] [place] [address] 08/23/2025 7:30 AM EDT Office Visit [facility] MATERNAL MEDICINE [address] [place] [address] 08/23/2025 7:30 AM EDT Appointment [facility] US PER DIAG CTR [address] [place] [address] Scheduled Orders Name Type Priority Associated Diagnoses Orde r Schedule [facility] Imaging Routine Insulin controlled gestational diabetes mellitus (GDM) in third trimester Expected: 07/31/2025 (Approximate), Expires: 07/26/2026 documented as of this encounter Visit Diagnoses Diagnosis Insulin controlled gestational diabetes mellitus (GDM) in third trimester- Primary documented in this encounter Care Teams Rare/Endangered Species Specialist Relationship Specialty Start Date End Date Mingo Limon MD [address] [place] [address] PCP - General Internal Medicine 07/30/22 documented as of this encounter
--- OUTSIDE RECORDS SUMMARY | 2025-07-30 12:08 | XMS_ITS | Encounter Summary ---
Author Organization [facility] Address [address] [place] [address] Care Team Providers Care Post Splitter Name Role Phone Mingo Limon MD Primary Care Provider [phone] Reason for Visit * Reason Onset Date Comments Advice Only 07/03/2025 Encounter Details Date Type Department Care Team (Late st Contact Info) Description 07/03/[address] [facility] MATERNAL MEDICINE [address] [facility] [address] [place] [address] Vira Paniagua tile layer Only Social History Tobacco Use Types Packs/Day [...] wants to use [facility] pharmacy in [place]. Vira Paniagua RN documented in this encounter Plan of Treatment Upcoming Encounters Date Type Department Care Team (Late st Contact Info) Description 08/09/2025 10:00 AM EDT Office Visit [facility] [address] [place] [address] Franchesca Sullivan, PACKAGE CENTER SUPERVISOR [address] [place] [address] 08/19/2025 8:45 AM EDT Office Visit [facility] PRIMARY CARE [address] [place] [address] [place] [address] Mingo Limon MD [address] [place] [address] [place] [address] 08/23/2025 7:30 AM EDT Office Visit [facility] MATERNAL MEDICINE [address] [place] [address] 08/23/2025 7:30 AM EDT Appointment [facility] [address] [place] [address] documented as of this encounter Visit Diagnoses Not on filedocumented in this encounter Care Teams Post Splitter Relationship Specialty Start Date End Date Mingo Limon MD [address] [place] [address] [place] [address] PCP - General Internal Medicine 07/30/22 documented as of this encounter
--- OUTSIDE RECORDS SUMMARY | 2025-07-30 12:08 | XMS_ITS | Encounter Summary ---
Author Organization [facility] Address [address] [place] [address] Care Team Providers Care Mechanical Design Engineer Name Role Phone Mingo Limon MD Primary Care Provider [phone] Encounter Details Date Type Department Care Team (Late st Contact Info) Description 06/27/2025 Documentation [facility] MATERNAL MEDICINE [address] [facility] [address] [place] [address] Vira Paniagua, RN Social History [...] use vitaliy. Patient is to notify through [employer] once she has entered in our clinic [...] [address] [place] [address] Franchesca Sullivan, PEST CONTROL SERVICE REPRESENTATIVE [address] [place] [address] [place] [address] 08/19/2025 8:45 AM EDT Office Visit [facility] PRIMARY CARE [address] [place] [address] [place] [address] Mingo Limon MD [address] [place] [address] [place] [address] 08/23/2025 7:30 AM EDT Office Visit [facility] MATERNAL MEDICINE [address] [place] [address] 08/23/2025 7:30 AM EDT Appointment [facility] [address] [place] [address] documented as of this encounter Visit Diagnoses Not on filedocumented in this encounter Care Teams Mechanical Design Engineer Relationship Specialty Start Date End Date Mingo Limon MD [address] [place] [address] PCP - General Internal Medicine 07/30/22 documented as of this encounter
--- OUTSIDE RECORDS SUMMARY | 2025-07-30 12:08 | XMS_ITS | Encounter Summary ---
Author Organization [facility] Address [address] [place] [address] Care Team Providers Care Director Marketing Name Role Phone Mingo Limon MD Primary Care Provider [phone] Encounter Details Date Type Department Care Team [...] Description 08/09/2025 10:00 AM EDT Office Visit [facility] CARDIOLOG[facility] [address] [place] [address] Franchesca Sullivan W, TON CONTAINER SHIPPER [address] [place] [address] 08/19/2025 8:45 AM EDT Office Visit [facility] PRIMARY CARE [address] [place] [phone] Mingo Limon MD [address] [place] [address] 08/23/2025 7:30 AM EDT Office Visit [facility] MATERNAL MEDICINE [address] [place] [address] 08/23/2025 7:30 AM EDT Appointment [facility] [address] [place] [address] documented as of this encounter Visit Diagnoses Not on filedocumented in this encounter Care Teams Director Marketing Relationship Specialty Start Date End Date Mingo Limon MD [address] [place] [address] PCP - General Internal Medicine 07/30/22 documented as of this encounter
--- OUTSIDE RECORDS SUMMARY | 2025-07-30 12:08 | XMS_ITS | Clinical Summary ---
Author Organization [facility] Address [address] [place] [address] Care Team Providers Care Oil Well Service Operator Name Role Phone Mingo Limon MD Primary Care Provider [phone] Allergies No known active allergies Medications fluticasone [...] 06/26/20 25 Active Insulin Pen Needle (Pen Atco) 31G X 5 MM misc Use 1 [...] that on Tuesday she bent over to continuous pickling line pickler her child and her heart rate [...] all of which were normal. Referred to [facility] cardiology who completed echo 06/14/2024 which was [...] need to switch to labetalol per her EXTERMINATOR HELPER TERMITE Dr. Kimbrough at [facility]. Patient has been instructed to start out [...] all of which were normal. Referred to [facility] cardiology who completed echo 06/14/2024 which was normal and had nonconcerning Holter monitor. Initial metoprolol 25 mg ER daily, switch to propranolol 20 mg in the potential she could get in the future this would prefer medicine. Overall she is clinically feeling better on regimen medicine. Keep follow-up with [facility] cardiology. Assessment & Plan (06/14/2024 4:33 PM [...] sensation with sitting to standing, with equivocal Berwick-Hallpike maneuver which has since resolved. At that [...] a bit of a dizzy sensation with Berwick-Hallpike maneuver to the left she did not [...] Patient previously been using NuvaRing through her insole and heel stiffener, but has interested in switching over to [...] to treatment she could discuss with her OB/insole and heel stiffener currently with concern, about next treatment option. [...] , and recent testing through [facility] dispatcher radio reveals what appears to be a failed 1 hour 2-hour and 3-hour glucose challenge test, as such it appears she is progressing to a similar pattern. No current medications at this time but keep regular follow-up with dispatcher radio. 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 Santos, dispatcher radio and [place]. Plan in place with potential complications of transition to [facility] if she delivers earlier has significant [...] diabetes mellitus. Nonetheless keep regular follow-up with OB/insole and heel stiffener who has placed her on glipizide 5 [...] diagnosis by review of her history, with [place] forms showing the same. No comorbid [...] with stability prefer to continue as per dispatcher radio. Of note we had transiently held ADHD [...] diagnosis by review of her history, with [place] forms showing the same. No comorbid [...] with stability prefer to continue as per dispatcher radio. Of note we had transiently held ADHD [...] diagnosis by review of her history, with [place] forms showing the same. No comorbid [...] diagnosis by review of her history, with [place] forms showing the same. No comorbid [...] diagnosis by review of her history, with [place] forms showing the same. No comorbid [...] diagnosis by review of her history, with [place] forms showing the same. 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 Reinforced healthy diet, good activity level is [...] [facility]NAL MEDICINE [address] [facility] [address] [place] [phone] Juan Miguel Marie MD Insulin controlled gestational diabetes mellitus (GDM) in third trimester (Primary Dx) 07/26/2025 7:27 AM EDT - 07/26/2025 11:59 PM EDT Hospital Encounter [facility] PER DIAG CTR [address] [place] [address] Sarah George MD Bicornuate uterus; Diet controlled gestational diabetes mellitus (GDM) in third trimester Discharge Disposition: Home or Self Care 07/26/2025 Travel 07/24/2025 Medication Therapy Management [facility]NAL MEDICINE [address] [facility] [address] [place] [phone] Daija Murray MD 07/20/2025 Refill [facility] PRIMARY CARE [address] [place] [address] [place] [address] Mingo Limon MD ADHD, predominantly inattentive type 07/17/2025 Medication Therapy Management [facility] MAT[facility]NAL MEDICINE [address] [facility] [address] [place] [address] Daija Murray MD 07/16/2025 Education [facility] DIABETES ED [address] [facility] [address] [place] [address] Yelena De La Paz RN 07/11/2025 Medication Therapy Management [facility] MAT[facility]NAL MEDICINE [address] [facility] [address] [place] [phone] Daija Murray MD 07/03/2025 Medication Therapy Management [facility] MAT[facility]NAL MEDICINE [address] [facility] [address] [place] [address] Daija Murray MD 07/03/2025 Telephone [facility] MAT[facility]NAL MEDICINE [address] [facility] [address] [place] [phone] Vira Paniagua RN Advice Only 07/01/2025 11:45 AM EDT - 07/01/2025 11:59 PM EDT Hospital Encounter [facility] DI[facility] ED [address] [facility] [address] [place] [phone] Discharge Disposition: Home or Self Care 07/01/2025 Travel 06/27/2025 11:15 AM EDT Office Visit [facility] MAT[facility]NAL MEDICINE [address] [facility] [address] [place] [phone] Sarah George MD Bicornuate uterus (Primary Dx); Diet controlled gestational diabetes mellitus (GDM) in third trimester 06/27/2025 11:01 AM EDT - 06/27/2025 11:59 PM EDT Hospital Encounter [facility] PER [facility] [address] [place] [address] Sarah George MD Bicornuate uterus Discharge Disposition: Home or Self Care 06/27/2025 Documentation [facility] MAT[facility]NAL MEDICINE [address] [facility] [address] [place] [address] Vira Paniagua RN 06/27/2025 Travel 06/24/2025 12:49 PM EDT - 06/24/2025 11:59 PM EDT Hospital Encounter [facility] DI[facility]ET[facility] ED [address] [place] [address] Juan Miguel Marie MD Discharge Disposition: Home or Self Care 06/24/2025 Travel 06/13/2025 1:00 PM EDT Office Visit [facility] PRIMARY [facility]ARE [address] [place] [address] [place] [address] Mingo Limon MD ADHD, predominantly inattentive type (Primary Dx); Anxiety and depression; Gestational diabetes mellitus (GDM) in second trimester controlled on oral hypoglycemic drug; Mixed hyperlipidemia; Palpitations 06/13/2025 Travel 05/27/2025 Refill [facility] [address] [place] [address] [place] [address] Mingo Limon MD ADHD, predominantly inattentive type 05/23/2025 10:30 AM EDT Office Visit [facility] MAT[facility]NAL MEDICINE [address] [place] [address] Sarah George MD Bicornuate uterus (Primary Dx) 05/23/2025 10:06 AM EDT - 05/23/2025 11:59 PM EDT Hospital Encounter [facility] [address] [place] [address] Milton Puentes MD 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, antepartum; History of delivery, currently ; Tachycardia; History of gestational diabetes in prior , currently ; , unspecified gestational age; Encounter for repeat ultrasound of pyelectasis, antepartum, not applicable or unspecified fetus Discharge Disposition: Home or Self Care 05/23/2025 Travel 05/16/2025 Telephone [facility]ARDIOLOG[facility] [address] [place] [address] Franchesca Hare, NIRAV 05/13/2025 Results Follow-Up [facility] PRIMARY [facility]ARE [address] [place] [address] [place] [address] Mingo Limon MD 05/10/2025 1:15 PM EDT Office Visit [facility] PR[facility]ARE [address] [place] [address] [place] [address] Mingo Limon MD Acute cystitis without hematuria (Primary Dx); ADHD, predominantly inattentive type; Anxiety and depression 05/10/2025 12:30 PM EDT Office Visit [facility] CARDIOLOG[facility] [address] [place], [place] [address] Franchesca Hare, NIRAV Palpitations (Primary Dx); Tachycardia 05/10/2025 Travel 05/08/2025 Telephone [facility] CARDI[facility] [address] [place], [place] [address] Franchesca Hare, NIRAV HARE-APOINTMENT from Last 3 [...] [facility] [address] [place] [address] Franchesca Hare W, ASSOCIATE DIRECTOR CAREER SERVICES [address] [place] [address] [place] [address] 08/19/2025 8:45 AM EDT Office Visit [facility] PRIMARY [facility]ARE [address] [place] [address] [place] [phone] Mingo Limon MD [address] [place] [address] [place] [address] 08/23/2025 7:30 AM EDT Office Visit [facility] MAT[facility]NAL MEDICINE [address] [place] [phone] 08/23/2025 7:30 AM EDT Appointment [facility] PER [facility] [address] [place] [address] Health Maintenance Due Date Last Done Comments MENINGOCOCCAL B VACCINE (1 o f 2 - Standard) 2018 HEPATITIS C SCREENING 07/30/2022 LIPID PANEL 05/21/2025 05/21/2024 COVID-19 Vaccine (2024-2 6 season) 2025 10/12/2021, 04/01/2021, 03/04/2021 RSV Vaccine - Adults (1 - Ri sk 1-dose series) 07/29/2025 ANNUAL PHYSICAL 08/17/2025 08/17/2024 CHLAMYDIA SCREENING 08/27/2025 08/27/2024, Annual Gynecologic Pelvic an d Breast Exam 08/28/2025 08/27/2024 INFLUENZA VACCINE 08/28/2025 11/06/2024, , 10/18/2022, Additional history exists PAP SMEAR 08/27/2027 08/27/2024, 08/25/2023 TDAP/TD VACCINES (3 - Td or Tdap) 11/06/2034 024, 07/24/2013 HPV VACCINES Completed 05/23/2014, 0302/2014, 07/24/2013 Pneumococcal Vaccine 0-49 Completed 2023, 04/24/2003, 04/24/2003, Additional history exists Procedures Procedure Name Priority Date/Time Associated Diagnosis Comments [facility] Routine 07/26/2025 8:11 AM EDT Bicornuate uterus Diet controlled gestational diabetes mellitus (GDM) in third trimester SCANNED - LABS 07/15/2025 SCANNED - LABS 07/15/2025 SCANNED - LABS 07/15/2025 [facility] Routine 06/27/2025 11:29 AM EDT Bicornuate uterus SCANNED - LABS 06/16/2025 SCANNED - IMAGING 06/16/2025 SCANNED - LABS 06/10/2025 [facility] Routine 05/23/2025 11:41 AM [...] Recently Relevant to Health Maintenance Results * [facility] (07/26/2025 8:11 AM EDT) Only the most recent of3 resultswithin the time period is included. Anatomical Region Laterality Modality Ultrasound 07/26/2025 7:44 AM EDT Narrative 07/26/2025 8:29 AM EDT PAT NAME: KARMEN BRAVO MED REC#: [id number] DA: [id number] PAT GEND: F PAT TYPE: O EXAM RO: [id number] REF PHYS LACIE PUENTESK Comparison Studies The findings of this study [...] EFW (oz) 5 oz EFW by: Hadlock ([id number]) Extended Cav. septi pel. tr 7.7 mm [...] Normal Heart / Thorax 3-vessel view: Normal 4-utibhb-xzyaeda view: normal Cord insertion: Normal Stomach: Appears [...] Follow-up as clinically indicated. Coding ======= Description: 50479-45 Follow Up Ultrasound Description: 52027-28 BPP without NST Retail Client Solutions Consultant: Radha Matson RDMS Physician: Juan Miguel Marie MD, FACOG Electronically signed by: Juan Miguel Marie MD, FACOG at: 08:29 Procedure Note Juan Miguel Marie MD - 07/26/2025 PAT NAME: KARMEN BRAVO MED REC#: [id number] DA: 2000 PAT GEND: F PAT TYPE: O EXAM RO: [id number] REF PHYS MILTON PUENTES Comparison Studies The findings of this study are compared to the prior ultrasound studydated 06/27/25 Patient Status Outpatient Indication ======== Gestational diabetes. Hx PPROM and PTD 32 wk. Morbid obesity BMI 40. Maternal Assessment Fyaofn457 cm Height (ft)4 ft Height (in)9 in Rhkhob11 kg Weight (lb)190 lb BMI40.35 kg/m Method ======= Transabdominal ultrasound examination ========= Rasmussen . Number of fetuses: 1 Dating ====== GA by prior nuagnxdkkl44 w + 2 d CHANTE by prior [...] Standard BPD84.9 mm 34w 1d 90% Hadlock TSG091.0 mm 38w 4d >99% Yocasta HC320.2 mm 36w 1d 96% Hadlock Cerebellum tr45.0 mm 34w 4d 91% Hill AC277.3 mm 31w 6d 34% Hadlock Femur60.9 mm 31w 4d 21% Hadlock HC / AC1.15 EFW1,957 g 32w 0d 42% Hadlock EFW (lb)4 lb EFW (oz)5 oz EFW by:Hadlock ([id number]) Extended Cav. septi pel. tr7.7 mm CM5.1 mm 5% Nicolaides Head / Face / Neck Cephalic index0.75 9% Nicolaides Extremities / Bony Struc FL / BPD0.72 FL / HC0.19 FL / AC0.22 Other Structures ZOG662 bpm General Evaluation Cardiac activity present. FHR [...] LVOT view:Normal Heart / Thorax 3-vessel view:Normal 0-kyxrol-wcdpwcp view:normal Cord insertion:Normal Stomach:Appears normal Kidneys:Appears normal Bladder:Appears normal Gender:male Wants to know gender:yes Maternal Structures Uterus / Cervix Cervical cvplob67.9 mm Doppler Arterial Umbilical A PI1.05 77% Celio Umbilical A RI0.66 73% Celio Umbilical A PS52.51 cm/s 71% Ebbing Umbilical A ED18.67 cm/s Umbilical A TAmax34.46 cm/s 68% Ebbing Umbilical A MD18.20 cm/s Umbilical A S / D2.99 68% Celio Umbilical A HR149 bpm Biophysical Profile 2: breathing movements 2: Gross body movements 2: tone 2: Amniotic fluid volume 8 Biophysical profile score Consultation / Office Visit Office note to follow Impression Today's exam reveals a SIUP in cephalic presentation with biometryconsistent with dates. Limited anatomic survey appears normal. TheAFI and BPP are normal. Recommendation Follow-up as clinically indicated. Coding ======= Description:25951-01 Follow Up Ultrasound Description:20322-08 BPP without NST [employer] Client [employer] Consultant: Radha Matson RDMS Physician: Juan Miguel Marie [...] PM EDT 05/10/2025 Comment:Urine Release to [facility] i Narrative [facility] (AMBUL[facility]) - 05/12/2025 6:37 AM EDT Performed at: 01 - [address] [id number] Screwhead Polisher: Dagoberto Campbell PhD, Phone: [phone] Mingo Limon MD MICROBIOLOGY - GENERAL ORDERABLE S Final Result [facility] (AMBULATORY) [address] [place] [address], [facility] [address] [place] [address], * (ABNORMAL) POC Urinalysis Dipstick (05/10/2025 1:38 PM EDT) Color Dark Yellow Yellow, Straw, Dark Yellow, Char [facility] Clarity, UA Cloudy(A) Clear [facility] Glucose, UA Negative Negative mg/dL [facility] Bilirubin Negative Negative [facility] Ketones, UA Negative Negative [facility] Specific [place] 1.010 1.005 - 1.030 [facility] [...] nal Result [facility]
[address] [phone] * LIQUID-BASED PAP SMEAR WITH HPV GENOTYPING IF ASCUS (GEENA,COR,MAD) (08/27/2024 9:58 AM EDT) Reference Lab Report [facility] [address] [place] [address] or [phone] Masood Herron M.D., Metal Patternmaker Apprentice PATIENT NAME LABORATORY NO. 651 KARMEN BRAVO [id number] AGE SEX SSN CLIENT REF # [facility] 22 2000 F [id number] Anuradha RENDON REQUESTING Joe ATTENDING [place] [address] CECILIA CONTRERAS DATE COLLECTED DATE RECEIVED DATE [...] of chlamydial and gonococcal disease using the [place] system. FITTING ROOM SUPERVISOR: JOSHUA OSORIO (ASCP) CPT CODES: [id number], [id number], [id number] 09/04/2024 10:12 AM EDT [facility] ThinPrep Vial Cervix uteri structure / Unknown Collection / Unknown 08/27/2024 9:58 AM EDT 08/27/2024 9:58 AM EDT Cecilia Contreras ASSOCIATE DIRECTOR CAREER SERVICES PATHOLOGY/CYTOLOGY ORDERA BLES Final Result [facility]
[address] [place] [address], * (ABNORMAL) Lipid Panel (05/21/2024 12:34 PM [...] - 05/22/2024 8:10 AM EDT Performed at: [address] [place] [id number] Screwhead Polisher: Dagoberto Campbell PhD, Phone: [phone] us Mingo Limon MD LAB BLOOD ORDERABLES Final Resul t [facility] ([facility]BUL[facility]) [address] [place] [address], [place] [phone] [facility] [address] [place] [address], [place] [phone] from Last 3 Months or Most Recently Relevant to Health Maintenance Insurance [facility] Care Teams Oil Well Service Operator Relationship Specialty Start Date End Date Mingo Limon MD [address] [place] [address] [place] [id number] PCP - General Internal Medicine 07/30/22
--- OUTSIDE RECORDS SUMMARY | 2025-07-30 12:08 | XMS_ITS | Clinical Summary ---
Author Organization Healthcare Address [address] [place] [address] Care Team Providers Care Assembler Musical Equipment Name Role Phone Pcp, No Primary Care [...] drink first t elyssa in the morning (EYE-PRODUCTION GEAR CUTTER) to steady your nerves or to get [...] [facility]-Adult SDOH Screenings 2020 [facility]-Pap Smear 2023 [id number] Vaccine ( season) 2025 10/12/2021, 04/01/2021, 03/04/2021 [facility]-Influenza Vaccine (#1) 07/29/202511/06, [...] require contact precautions indefinitely. 05/07/2023 05/07/2023 Insurance [facility] Advance Directives * Full Code (Latest Code Status on File) Date Activated Date Inactivated Comments 05/03/2023 8:40 AM 05/09/2023 7:09 PM Question Answer Comments Patient has decision-making capacity? Yes Care Teams Assembler Musical Equipment Relationship Specialty Start Date End Date Pcp, No [address] [place] [address] PCP - General Family Medicine 05/02/23
--- OUTSIDE RECORDS SUMMARY | 2025-07-30 12:08 | XMS_ITS | Encounter Summary ---
Author Organization [facility] Address [address] [place] [address] Care Team Providers Care Agency Cashier Name Role Phone Mingo Limon MD Primary Care Provider [phone] Encounter Details Date Type Department Care Team [...] CLINIC [place] [address] Franchesca Sullivan W, PLATING ENGINEER [address] [place] [address] [place] [address] 08/19/2025 8:45 AM EDT Office Visit [facility] PRIMARY CARE [address] [place] [phone] Mingo Limon MD [address] [place] [address] 08/23/2025 7:30 AM EDT Office Visit [facility] MATERNAL MEDICINE [address] [place] [address] 08/23/2025 7:30 AM EDT Appointment [facility] PER DIAG CTR [address] [place] [address] documented as of this encounter Visit Diagnoses Not on filedocumented in this encounter Care Teams Agency Cashier Relationship Specialty Start Date End Date Mingo Limon MD [address] [place] [address] PCP - General Internal Medicine 07/30/22 documented as of this encounter
--- OUTSIDE RECORDS SUMMARY | 2025-07-30 12:08 | XMS_ITS | Encounter Summary ---
Author Organization [facility] Address [address] [place] [address] Care Team Providers Care Hog Grader Name Role Phone Mingo Limon MD Primary Care Provider [phone] Encounter Details Date Type Department Care Team [...] [facility] [address] [place] [phone] Franchesca Sullivan W, CATHOLIC PRIEST [address] [place] [address] [place] [address] 08/19/2025 8:45 AM EDT Office Visit [facility] PRIMARY CARE [address] [place] [phone] Mingo Limon MD [address] [place] [id number] 08/23/2025 7:30 AM EDT Office Visit [facility] MAT[facility]NAL MEDICINE [address] [place] [address] 08/23/2025 7:30 AM EDT Appointment [facility] PER DIAG CTR [address] [place] [address] documented as of this encounter Visit Diagnoses Not on filedocumented in this encounter Care Teams Hog Grader Relationship Specialty Start Date End Date Mingo Limon MD [address] [place] [id number] PCP - General Internal Medicine 07/30/22 documented as of this encounter
--- OUTSIDE RECORDS SUMMARY | 2025-07-30 12:08 | XMS_ITS | Encounter Summary ---
Author Organization [facility] Address [address] [place] [address] Care Team Providers Care Breaker Unit Assembler Name Role Phone Mingo Limon MD Primary Care Provider [phone] Encounter Details Date Type Department Care Team (Late st Contact Info) Description 07/03/2025 Medication Therapy Management [facility] MATERNAL MEDICINE [address] [place] [phone] Daija Murray MD [address] [place] [address] Social History Tobacco Use Types Packs/Day Years [...] [facility] CARDIOLOGY [address] [place] [address] Franchesca Sullivan, EGG CRATER [address] [place] [address] [place] [address] 08/19/2025 8:45 AM EDT Office Visit [facility] PRIMARY CARE [address] [place] [address] [place] [address] Mingo Limon MD [address] [place] [address] [place] [address] 08/23/2025 7:30 AM EDT Office Visit [facility] MEDICINE [address] [facility] [address] [place] [address] 08/23/2025 7:30 AM EDT Appointment [facility] PER [facility] CTR [address] [place] [address] documented as of this encounter Visit Diagnoses Not on filedocumented in this encounter Care Teams Breaker Unit Assembler Relationship Specialty Start Date End Date Mingo Limon MD [address] [place] [address] [place] [address] PCP - General Internal Medicine 07/30/22 documented as of this encounter
--- OUTSIDE RECORDS SUMMARY | 2025-07-30 12:08 | XMS_ITS | Encounter Summary ---
Author Organization [facility] Address [address] [place] [address] Care Team Providers Care Compatibility Test Engineer Name Role Phone Mingo Limon MD Primary Care Provider [phone] Encounter Details Date Type Department Care Team (Late st Contact Info) Description 07/11/2025 Medication Therapy Management [facility] MATERNAL MEDICINE [address] [place] [phone] Daija Murray MD [address] [place] [address] Social History Tobacco Use Types Packs/Day Years [...] 10:00 AM EDT Office Visit [facility] CARDIOLOGY [address] [place] [address] Franchesca Sullivan, HOT MILL ROLLER [address] [place] [address] [place] [address] 08/19/2025 8:45 AM EDT Office Visit [facility] PRIMARY CARE [address] [place] [address] [place] [phone] Mingo Limon MD [address] [place] [address] [place] [address] 08/23/2025 7:30 AM EDT Office Visit [facility] MAT[facility]NAL MEDICINE [address] [facility] [address] [place] [address] 08/23/2025 7:30 AM EDT Appointment [facility] PER DIAG CTR [address] [place] [address] documented as of this encounter Visit Diagnoses Not on filedocumented in this encounter Care Teams Compatibility Test Engineer Relationship Specialty Start Date End Date Mingo Limon MD [address] [place] [address] [place] [address] PCP - General Internal Medicine 07/30/22 documented as of this encounter
--- OUTSIDE RECORDS SUMMARY | 2025-07-30 12:09 | XMS_ITS | Encounter Summary ---
Author Organization [facility] Address [address] [place] [address] Care Team Providers Care Dairy Grazer Name Role Phone Mingo Limon MD Primary Care Provider [phone] Encounter Details Date Type Department Care Team [...] [facility] [place] [address] Franchesca Sullivan W, WHEEL ADJUSTER [address] [place] [address] 08/19/2025 8:45 AM EDT Office Visit [facility] [address] [place] [phone] Minog Limon MD [address] [place] [address] 08/23/2025 7:30 AM EDT Office Visit [facility] [address] [place] [address] 08/23/2025 7:30 AM EDT Appointment [facility] [address] [place] [address] documented as of this encounter Visit Diagnoses Not on filedocumented in this encounter Care Teams Dairy Grazer Relationship Specialty Start Date End Date Mingo Limon MD [address] [place] [address] PCP - General Internal Medicine 07/30/22 documented as of this encounter
--- OUTSIDE RECORDS SUMMARY | 2025-07-30 12:10 | XMS_ITS | Patient Health Record ---
Author Organization [facility] Address [address] [address] Care Team Providers Care Patrol Lady Name Role Phone SANDOR BLAKELY Unavailable [phone] Sandor Blakely MD Unavailable Unavailable Allergies No [...] Insured Coverage Start Date Coverage End Date [facility] MEDICAID [address] [place] [address] [id number] [place] Self - patient is the insured Medical (General) History Medical History History ICD Code DEPRESSION AND ANXIETY Surgical History Surgery Date(Month/Year) WISDOM TEETH 2019
--- OUTSIDE RECORDS SUMMARY | 2025-07-30 12:11 | XMS_ITS | Encounter Summary ---
Author Organization [facility] Address [address] [place] [address] Care Team Providers Care Steel Construction Worker Name Role Phone Mingo Limon MD Primary Care Provider [phone] Encounter Details Date Type Department Care Team (Late st Contact Info) Description 07/16/2025 Education [facility] ED [address] [facility] [address] [place] [address] Yelena De La Paz, RN [...] La Paz RN, [facility] 07/16/25 09:14 EDT documented in this encounter Plan of Treatment Upcoming Encounters Date Type Department Care Team (Late st Contact Info) Description 08/09/2025 10:00 AM EDT Office Visit [facility] [address] [place] [address] Franchesca Sullivan, PIN FEATHER MACHINE OPERATOR [address] [place] [address] [place] [address] 08/19/2025 8:45 AM EDT Office Visit [facility] [address] [place] [address] [place] [phone] Mingo Limon MD [address] [place] [address] [place] [address] 08/23/2025 7:30 AM EDT Office Visit [facility] [address] [place] [address] 08/23/2025 7:30 AM EDT Appointment [facility] [address] [place] [address] documented as of this encounter Visit Diagnoses Not on filedocumented in this encounter Care Teams Steel Construction Worker Relationship Specialty Start Date End Date Mingo Limon MD [address] [place] [address] [place] [address] PCP - General Internal Medicine 07/30/22 documented as of this encounter
--- OUTSIDE RECORDS SUMMARY | 2025-07-30 12:11 | XMS_ITS | Encounter Summary ---
Author Organization [facility] Address [address] [place] [address] Care Team Providers Care Snowmaker Name Role Phone Mingo Limon MD Primary Care Provider [phone] Reason for Visit * Reason Comments Med Refill Encounter Details Date Type Department Care Team (Late st Contact Info) Description 07/20/2025 Refill [facility] [address] [place] [address] [place] [address] Mingo Limon MD [address] [place] [address] ADHD, predominantly inattentive type Social [...] [facility] [address] [place] [address] Franchesca Sullivan, AIRCRAFT INSTRUMENT REPAIRER [address] [place] [address] [place] [address] 08/19/2025 8:45 AM EDT Office Visit [facility] [address] [place] [address] [place] [address] Mingo Limon MD [address] [place] [address] [place] [address] 08/23/2025 7:30 AM EDT Office Visit [facility] MEDICINE [address] [place] [address] 08/23/2025 7:30 AM EDT Appointment [facility] [address] [place] [address] documented as of this encounter Visit Diagnoses Diagnosis ADHD, 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
--- OUTSIDE RECORDS SUMMARY | 2025-07-30 12:11 | XMS_ITS | Encounter Summary ---
Author Organization [facility] Address [address] [place] [address] Care Team Providers Care Full Time Staff Interpreter Name Role Phone Mingo Limon MD Primary Care Provider [phone] Encounter Details Date Type Department Care Team (Late st Contact Info) Description 07/17/2025 Medication Therapy Management [facility]NAL MEDICINE [address] [id number] Daija Murray MD [address] [place] [address] Social History Tobacco Use Types Packs/Day Years [...] [facility] [address] [place] [address] Franchesca Sullivan, CENTRAL OFFICE TECHNICIAN [address] [place] [address] [place] [address] 08/19/2025 8:45 AM EDT Office Visit [facility] [address] [place] [address] [place] [address] Mingo Limon MD [address] [place] [address] [place] [address] 08/23/2025 7:30 AM EDT Office Visit [facility] [address] [facility] [address] [place] [address] 08/23/2025 7:30 AM EDT Appointment [facility] [address] [place] [address] documented as of this encounter Visit Diagnoses Not on filedocumented in this encounter Care Teams Full Time Staff Interpreter Relationship Specialty Start Date End Date Mingo Limon MD [address] [place] [address] [place] [address] PCP - General Internal Medicine 07/30/22 documented as of this encounter
--- OUTSIDE RECORDS SUMMARY | 2025-07-30 12:12 | XMS_ITS | Encounter Summary ---
Author Organization [facility] Address [address] [place] [address] Care Team Providers Care Accounts Payable Bookkeeper Name Role Phone Mingo Limon MD Primary Care Provider [phone] Encounter Details Date Type Department Care Team (Late st Contact Info) Description 07/24/2025 Medication Therapy Management [facility] MEDICINE [address] [phone] Daija Murray MD [address] [place] [address] Social History Tobacco Use Types Packs/Day Years [...] Description 08/09/2025 10:00 AM EDT Office Visit [facility] C[facility] [address] [place] [address] Franchesca Sullivan, SILK WASHING MACHINE OPERATOR [address] [place] [address] 08/19/2025 8:45 AM EDT Office Visit [facility] [address] [place] [address] [place] [address] Mingo Limon MD [address] [place] [address] [place] [address] 08/23/2025 7:30 AM EDT Office Visit [facility] [address] [facility] [address] [place] [address] 08/23/2025 7:30 AM EDT Appointment [facility] [address] [place] [address] documented as of this encounter Visit Diagnoses Not on filedocumented in this encounter Care Teams Accounts Payable Bookkeeper Relationship Specialty Start Date End Date Mingo Limon MD [address] [place] [address] [place] [address] PCP - General Internal Medicine 07/30/22 documented as of this encounter
--- OUTSIDE RECORDS SUMMARY | 2025-07-30 12:14 | XMS_ITS | Encounter Summary ---
Author Organization [facility] Address [address] [place] [address] Care Team Providers Care Physicist Solid State Name Role Phone Mingo Limon MD Primary Care Provider [phone] Encounter Details Date Type Department Care Team [...] Description 08/09/2025 10:00 AM EDT Office Visit [facility] [address] [place] [address] Franchesca Sullivan W, VISUAL BASIC DEVELOPER [address] [place] [address] 08/19/2025 8:45 AM EDT Office Visit [facility] [address] [place] [phone] Mingo Limon MD [address] [place] [address] 08/23/2025 7:30 AM EDT Office Visit [facility] MATERNAL MEDICINE [address] [place] [address] 08/23/2025 7:30 AM EDT Appointment [facility] [address] [place] [address] documented as of this encounter Visit Diagnoses Not on filedocumented in this encounter Care Teams Physicist Solid State Relationship Specialty Start Date End Date Mingo Limon MD [address] [place] [address] PCP - General Internal Medicine 07/30/22 documented as of this encounter
[2025-07-30 13:36] LABS: Albumin Level 3.3 g/dl (3.5-5.0); Chloride 110 mmol/L (98-107); Sodium 137 mmol/L (136-145)
[2025-07-30 13:37] LABS: Potassium 4.0 mmoL/L (3.5-5.1)
[2025-07-30 13:39] LABS: Alanine Aminotransferase 30 U/L (12-78); Alkaline Phosphatase 197 U/L (38-126); Anion Gap 10.0 mEq/L (5-15); Aspartate Amino Transferase 30 U/L (14-36); Bilirubin,Total 0.4 mg/dl (0.2-1.3); Blood Urea Nitrogen 5 mg/dl (7-17); Carbon Dioxide 21 mmol/L (22.0-30.0); Creatinine,Serum 0.50 mg/dl (0.52-1.04); Estimated Glomerular Filt Rate 153 ml/min (>60); GFR (African American) 185 ML/MIN (>60)
[2025-07-30 13:40] LABS: Albumin/Globulin Ratio 1.1 (1.1-1.8); Calcium 9.4 mg/dl (8.4-10.2); Globulin 2.9 g/dL (1.3-3.2); Glucose 123 mg/dl (74-100); Total Protein,Serum 6.2 g/dl (6.3-8.2)
== END 2025-07-30 23:59 | disposition home or self-care (01) ==
LOC: LAB 12:06
PROVIDERS: PCP Pediatrics; Visit Provider Obstetrics & Gynecology
DX: O10.919 Unspecified pre-existing hypertension complicating pregnancy, unspecified trimester; O24.410 Gestational diabetes mellitus in pregnancy, diet controlled; O99.210 Obesity complicating pregnancy, unspecified trimester
CPT/HCPCS: 36415; 80053; 82239

== ENCOUNTER 2025-08-01 07:57 | Outpatient (CLI) | payer OTHER, SELFPAY ==
--- OUTSIDE RECORDS SUMMARY | 2025-06-13 13:00 | XMS_ITS | Encounter Summary ---
Author Organization [facility] Address [address] [place] [address] Care Team Providers Care Lithography Contact Worker Name Role Phone Mingo Limon MD Primary Care Provider [phone] Reason for Visit * Reason Comments Med Refill Encounter Details Date Type Department Care Team (Late st Contact Info) Description 06/13/2025 1:00 PM EDT Office Visit [facility] PRIMARY CARE [address] [place] [address] [place] [address] Mingo Limon MD [address] [place] [address] ADHD, predominantly inattentive type (Primary Dx); Anxiety [...] all of which were normal. Referred to [facility] cardiology who completed echo 06/14/2024 which [...] , and recent testing through [facility] Abraham prop making supervisor reveals what appears to be a failed 1 hour 2-hour and 3-hour glucose challenge test, as such it appears she is progressing to a similar pattern. No current medications atthis time but keep regular follow-up with prop making supervisor. Of note she had been placed [...] diagnosis by review of her history, with [place] forms showing the same. No comorbid sleep [...] with stability prefer to continue as per prop making supervisor. Of note we had transiently held [...] no SI/HI and handling her stressors appropriately. Master Planner has recommendedher to continue on the regimen [...] diagnosis by review of her history, with [place] forms showing the same. No comorbid sleep [...] with stability prefer to continue as per prop making supervisor. Of note we had transiently held [...] , and recent testing through Velvet Abraham prop making supervisor reveals what appears to be a failed 1 hour 2-hour and 3-hour glucose challenge test, as such it appears she is progressing to a similar pattern. No current medications atthis time but keep regular follow-up with prop making supervisor. Of note she had been placed [...] follow up, ADHD monitoring. Mingo Limon MD [facility] documented in this encounter Plan of Treatment Upcoming Encounters Date Type Department Care Team (Late st Contact Info) Description 08/09/2025 10:00 AM EDT Office Visit [facility] CARDIOLOGY [address] [place] [phone] Franchesca Sullivan, BI SPECIALIST [address] [place] [address] 08/19/2025 8:45 AM EDT Office Visit [facility] PRIMARY CARE [address] [place] [address] [place] [phone] Mingo Limon MD [address] [place] [address] [place] [address] 08/23/2025 7:30 AM EDT Office Visit [facility] MATERNAL MEDICINE [address] [place] [address] 08/23/2025 7:30 AM EDT Appointment [facility] US PER DIAG CTR [address] [place] [address] documented as of this encounter Visit Diagnoses Diagnosis ADHD, predominantly inattentive type- Primary Attention deficit disorder without mention of hyperactivity Anxiety and depression Gestational diabetes mellitus (GDM) in second trimester controlled on oral hypoglycemic drug Mixed hyperlipidemia Palpitations documented in this encounter Care Teams Lithography Contact Worker Relationship Specialty Start Date End Date Mingo Limon MD [address] [place] [address] PCP - General Internal Medicine 07/30/22 documented as of this encounter
--- OUTSIDE RECORDS SUMMARY | 2025-06-24 12:49 | XMS_ITS | Encounter Summary ---
Author Organization [facility] Address [address] [place] [address] Care Team Providers Care Landscape Laborer Name Role Phone Mingo Limon MD Primary Care Provider [phone] Encounter Details Date Type Department Care Team (Late st Contact Info) Description 06/24/2025 12:49 PM EDT - 06/24/2025 11:59 PM EDT Hospital Encounter [facility] DIABETES ED [address] [place] [address] Juan Miguel Marie MD [address] [facility] [address] [place] [phone] Discharge Disposition: Home or Self Care Social [...] use EPIC. If you are not an [employer] user a copy of patient's assessment and notes will be sent per routine. Thank you. documented in this encounter Plan of Treatment Upcoming Encounters Date Type Department Care Team (Late st Contact Info) Description 08/09/2025 10:00 AM EDT Office Visit [facility] CARDIOLOGY [address] [place] [address] SeFranchesca he, CASH APPLICATION REPRESENTATIVE [address] [place] [address] 08/19/2025 8:45 AM EDT Office Visit [facility] PRIMARY CARE [address] [place] [address] [place] [address] Mingo Limon MD [address] [place] [address] [place] [address] 08/23/2025 7:30 AM EDT Office Visit [facility] MATERNAL MEDICINE [address] [place] [address] 08/23/2025 7:30 AM EDT Appointment [facility] US PER DIAG CTR [address] [place] [address] documented as of this encounter Visit Diagnoses Not on filedocumented in this encounter Care Teams Landscape Laborer Relationship Specialty Start Date End Date Mingo Limon MD [address] [place] [address] [place] [address] PCP - General Internal Medicine 07/30/22 documented as of this encounter
--- OUTSIDE RECORDS SUMMARY | 2025-06-27 11:01 | XMS_ITS | Encounter Summary ---
Author Organization [facility] Address [address] [place] [address] Care Team Providers Care Ad Operations Coordinator Name Role Phone Mingo Limon MD Primary Care Provider [phone] Reason for Referral * Diagnostic Imaging (Routine) - Closed Specialty Diagnoses / Procedures Referred By Hansel t Referred To Contact Radiology Diagnoses Bicornuate uterus Procedures [facility] Diagnostic [place] Sarah George MD [address] [address] Phone: tel: fax: [facility] US PER DIAG CTR [address] [place] [address] Phone: tel: Referral ID Status Reason Start Date Expiration Date Visits Re quested Visits Authorized [id number] Closed 05/23/2025 08/22/2026 1 1 Reason for Visit * Diagnostic Imaging (Routine) - Closed Specialty Diagnoses / Procedures Referred By Contac t Referred To Contact Radiology Diagnoses Bicornuate uterus Procedures [facility] Diagnostic [place] Sarah George MD [address] [address] Phone: tel: fax: [facility] US PER DIAG CTR [address] [place] [address] Phone: tel: Referral ID Status Reason Start Date Expiration Date Visits Re quested Visits Authorized [id number] Closed 05/23/2025 08/22/2026 1 1 Encounter Details Date Type Department Care Team (Late st Contact Info) Description 06/27/2025 11:01 AM EDT - 06/27/2025 11:59 PM EDT Hospital Encounter [facility] PER DIAG CTR [address] [place] [address] Sarah George MD [facility] [facility] [address] [place] [address] Bicornuate uterus Discharge Disposition: Home or Self Care Social [...] Times a Day. 180 tablet 1 06/13/2025 Continuous Glucose Sensor (Dexcom G7 Sensor) misc USE As directed EVERY 10 DAYS 06/26/2025 escitalopram (LEXAPRO) 20 MG tabletIndications:A nxiety and [...] by mouth Every Morning 30 tablet 05/27/2025 5 documented as of this encounter Plan of Treatment Upcoming Encounters Date Type Department Care Team (Late st Contact Info) Description 08/09/2025 10:00 AM EDT Office Visit [facility] CARDIOLOGY [address] [place] [address] Franchesca Sullivan, ENGLISH PROFESSOR [address] [place] [address] 08/19/2025 8:45 AM EDT Office Visit [facility] PRIMARY CARE [address] [place] [address] Mingo Limon MD [address] [place] [address] 08/23/2025 7:30 AM EDT Office Visit [facility]NAL MEDICINE [facility] [facility] [address] [place] [address] 08/23/2025 7:30 AM EDT Appointment [facility] US PER DIAG CTR [address] [place] [address] documented as of this encounter Procedures Procedure Name Priority Date/Time Associated Diagnosis Comments [facility] DI[facility]IC [facility] Routine 06/27/2025 11:29 AM EDT Bicornuate uterus documented in this encounter Results * [facility] (06/27/2025 11:29 AM EDT) Anatomical Region Laterality Modality Ultrasound 06/27/2025 11:1 7 AM EDT Narrative 07/02/2025 8:14 PM EDT PAT NAME: KARMEN GU MED REC#: [id number] DA: [id number] PAT GEND: F PAT TYPE: O EXAM RO: [id number] REF PHYS [facility] Comparison Studies The [...] EFW (oz) 12 oz EFW by: Hadlock ([id number]) Extended Cav. septi pel. tr 6.9 mm [...] Normal Heart / Thorax 3-vessel view: Normal 8-cualhe-ycvpchw view: normal Stomach: Appears normal Kidneys: Appears normal Bladder: Appears normal Gender: male Wants to know gender: yes Impression ========= Cephalic S=D Normal appearing limited anatomy Normal fluid Recommendation FOllow up 4 weeks Coding ====== Description: 26238-99 Follow Up Engine Buildup Mechanic: Myranda De La Torre RDMS Physician: Sarah George MD, FACOG Electronically signed by: Sarah George MD, FACOG at: 20:14 Procedure Note Sarah George MD - 07/02/2025 PAT NAME: KARMEN GU MED REC#: [id number] DA: [id number] PAT GEND: F PAT TYPE: O EXAM RO: [id number] REF PHYS [facility] Comparison Studies The findings of this study are compared to the prior ultrasound studydated 05/23/25 Patient Status Outpatient Indication ======== Gestational diabetes. Hx PPROM and PTD 32 wk. Morbid obesity BMI 40. Maternal Assessment Pmilfx587 cm Height (ft)4 ft Height (in)9 in Axclru70 kg Weight (lb)188 lb BMI40.01 kg/m Method ======= Transabdominal ultrasound examination. View: Adequate view ========= Rasmussen . Number of fetuses: 1 Dating ====== Method of dating:based on stated CHANTE GA by prior [email or web address] w + 1 d CHANTE by prior assessment:09/18/2025 Ultrasound examination on:06/27/2025 GA by U/S based upon:AC, BPD, Femur, HC GA by U/S29 w + 1 d CHANTE by U/S:09/11/2025 Previous dating:based on stated CHANTE, selected on 05/23/2025 Agreed CHANTE of previous datin09/18/2025 Assigned:based on stated CHANTE, selected on 06/27/2025 Assigned GA28 w + 1 d Assigned CHANTE:09/18/2025 d Biometry Standard BPD74.3 mm 29w 6d 87% Hadlock OFD99.6 mm 32w 1d >99% Yocasta HC278.2 mm 30w 3d 86% Hadlock Cerebellum tr38.5 mm 31w 2d >99% Hill AC244.8 mm 28w 5d 61% Hadlock Femur51.4 mm 27w 3d 18% Hadlock Dxnlerc37.3 mm 27w 6d 34% Yocasta HC / AC1.14 EFW1,245 g 28w 1d 53% Hadlock EFW (lb)2 lb EFW (oz)12 oz EFW by:Hadlock ([id number]) Extended Cav. septi pel. tr6.9 mm CM8.0 mm 82% Nicolaides Head / Face / Neck Cephalic index0.75 11% Nicolaides Extremities / Bony Struc FL / BPD0.69 FL / HC0.18 FL / AC0.21 Other Structures XES910 bpm General Evaluation Cardiac activity present. FHR [...] LVOT view:Normal Heart / Thorax 3-vessel view:Normal 3-jxssex-rhwiqvv view:normal Stomach:Appears normal Kidneys:Appears normal Bladder:Appears normal Gender:male Wants to know gender:yes Impression ========= Cephalic S=D Normal appearing limited anatomy Normal fluid Recommendation FOllow up 4 weeks Coding ====== Description:[id number] Follow Up Engine Buildup Mechanic: Myranda De La Torre RDMS Physician: Sarah George MD, FACOG Electronically signed by: Sarah George MD, FACOG at: 20:14 us Sarah George MD IMG US ORDERABLES Final Result documented in this encounter Visit Diagnoses Diagnosis Bicornuate uterus documented in this encounter Care Teams Ad Operations Coordinator Relationship Specialty Start Date End Date Mingo Limon MD [address] [place] [address] [place] [address] PCP - General Internal Medicine 07/30/22 documented as of this encounter
--- OUTSIDE RECORDS SUMMARY | 2025-06-27 11:15 | XMS_ITS | Encounter Summary ---
Author Organization [facility] Address [address] [place] [address] Care Team Providers Care Live Source Operator Name Role Phone Mingo Limon MD Primary Care Provider [phone] Reason for Referral * Diagnostic Imaging (Routine) - Closed Specialty Diagnoses / Procedures Referred By Arlethac t Referred To Contact Radiology Diagnoses Bicornuate uterus Diet controlled gestational diabetes mellitus (GDM) in third trimester Procedures [facility] Sarah George MD [address] [facility] [address] [place] [address] Phone: tel: fax: [facility] PER DIAG CTR [address] [place] [address] Phone: tel: Referral ID Status Reason Start Date Expiration Date Visits Re quested Visits Authorized [id number] Closed 07/02/2025 10/01/2026 1 1 Reason for Visit * Reason Comments GDM, bicornate ut, hx 32 wk PTD, [place] Encounter Details Date Type Department Care Team (Late st Contact Info) Description 06/27/2025 11:15 AM EDT Office Visit [facility] [address] [facility] [address] [place] [address] Sarah George MD [address] [facility] [address] [place] [address] Bicornuate uterus (Primary Dx); Diet controlled gestational diabetes mellitus (GDM) in third trimester Social History Tobacco Use Types Packs/Day Years [...] Sign Reading Time Taken Comments Blood Pressure 87/55 06/27/2025 11:11 AM EDT 10 Pulse - - Temperature - - Respiratory Rate - - Oxygen Saturation - - Inhaled Oxygen Concentration - - Weight 85.5 kg (188 lb 6.4 oz) 06/27/2025 11:11 AM EDT Height - - Body Mass Index 39.39 06/13/2025 12:55 PM EDT documented in this encounter Progress Notes * Sarah George MD - 06/27/2025 1:14 PM EDTAssociated Problem(s): Insulin controlled gestational diabetes mellitus (GDM) in third trimester Recently diagnosed. Has seen Diabetic Education. Has Dexcom. Reports elevated fastings though also with some lows. No clear pattern. * Cherelle Gabriel RN - 06/27/2025 11:15 AM EDT Patient denies any leaking of fluid or vaginal bleeding. She reports sporadic leonard gonzales contractions. NIPT negative. Patient reports next follow-up appointment with Dr. Puentes's office is 07/08. * Sarah George MD - 06/27/2025 11:15 AM EDT Patient seen in Diagnostic Center today for ultrasound. Please see ultrasound report under imaging tab of patient chart in [facility] (Viewpoint report). Sarah George MD documented in this encounter Plan of Treatment Upcoming Encounters Date Type Department Care Team (Late st Contact Info) Description 08/09/2025 10:00 AM EDT Office Visit [facility] CARDIOLOGY [address] [address] Franchesca Sullivan, SUPERVISOR JOINERS [address] [place] [address] [place] [address] 08/19/2025 8:45 AM EDT Office Visit [facility] PRIMARY CARE [address] [place] [address] [place] [address] Mingo Limon MD [address] [place] [address] [place] [address] 08/23/2025 7:30 AM EDT Office Visit [facility] MATERNAL MEDICINE [address] [place] [address] 08/23/2025 7:30 AM EDT Appointment [facility] US PER DIAG CTR [address] [place] [address] documented as of this encounter Results * [facility] (07/26/2025 8:11 AM EDT) Anatomical Region Laterality Modality Ultrasound 07/26/2025 7:44 AM EDT Narrative 07/26/2025 8:29 AM EDT PAT NAME: KARMEN GU MED REC#: [id number] DA: 2000 PAT GEND: F PAT TYPE: O EXAM RO: [id number] REF PHYS MILTON PUENTES Comparison Studies The findings of this study are compared to the prior ultrasound study dated 06/27/25 Patient Status Outpatient Indication ======== Gestational diabetes. Hx PPROM and PTD 32 wk. Morbid obesity BMI 40. Maternal Assessment Height 146 cm Height (ft) 4 ft Height (in) 9 in Weight 86 kg Weight (lb) 190 lb BMI 40.35 kg/m Method ======= Transabdominal ultrasound examination ========= Rasmussen . Number of fetuses: 1 Dating ====== GA by prior assessment 32 w + 2 d CHANTE by prior assessment: 09/18/2025 Ultrasound examination on: 07/26/2025 GA by U/S based upon: AC, BPD, Femur, HC GA by U/S 33 w + 3 d CHANTE by U/S: 09/10/2025 Method of dating: Restore dating from previous exam Previous dating: based on stated CHANTE, selected on 06/27/2025 Agreed CHANTE of previous datin09/18/2025 Assigned: based on stated CHANTE, selected on 06/27/2025 Assigned GA 32 w + 2 d Assigned CHANTE: 09/18/2025 length 280 d Biometry Standard BPD 84.9 mm 34w 1d 90% Hadlock OFD 113.0 mm 38w 4d >99% Yocasta HC 320.2 mm 36w 1d 96% Hadlock Cerebellum tr 45.0 mm 34w 4d 91% Hill AC 277.3 mm 31w 6d 34% Hadlock Femur 60.9 mm 31w 4d 21% Hadlock HC / AC 1.15 EFW 1,957 g 32w 0d 42% Hadlock EFW (lb) 4 lb EFW (oz) 5 oz EFW by: Hadlock (VPT-[id number]-FL) Extended Cav. septi pel. tr 7.7 mm CM 5.1 mm 5% Nicolaides Head / Face / Neck Cephalic index 0.75 9% Nicolaides Extremities / Bony Struc FL / BPD 0.72 FL / HC 0.19 FL / AC 0.22 Other Structures FHR 143 bpm General Evaluation Cardiac activity present. FHR 143 bpm. movements present. Presentation cephalic. Placenta Placental site: anterior. Umbilical cord Cord vessels: 3 vessel cord. Amniotic fluid Amount of AF: normal. MVP 5.2 cm. UMM 18.4 cm. Q1 5.2 cm, Q2 4.6 cm, Q3 4.5 cm, Q4 4.2 cm. Anatomy Cranium: Normal Cavum septi pellucidi: Normal Cerebellum: Normal Cisterna magna: Normal Head / Neck Rt lateral ventricle: Normal Lt lateral ventricle: Normal Lips: Normal Profile: Normal Nose: Normal 4-chamber view: Appears normal RVOT view: Normal LVOT view: Normal Heart / Thorax 3-vessel view: Normal 4-rwvuvq-zxmesjj view: normal Cord insertion: Normal Stomach: Appears normal Kidneys: Appears normal Bladder: Appears normal Gender: male Wants to know gender: yes Maternal Structures Uterus / Cervix Cervical length 39.9 mm Doppler Arterial Umbilical A PI 1.05 77% Celio Umbilical A RI 0.66 73% Celio Umbilical A PS 52.51 cm/s 71% Ebbing Umbilical A ED 18.67 cm/s Umbilical A TAmax 34.46 cm/s 68% Ebbing Umbilical A MD 18.20 cm/s Umbilical A S / D 2.99 68% Celio Umbilical A HR 149 bpm Biophysical Profile 2: breathing movements 2: Gross body movements 2: tone 2: Amniotic fluid volume 07/05 Biophysical profile score Consultation / Office Visit Office note to follow Impression Today's exam reveals a SIUP in cephalic presentation with biometry consistent with dates. Limited anatomic survey appears normal. The UMM and BPP are normal. Recommendation Follow-up as clinically indicated. Coding ======= Description: 98550-30 Follow Up Ultrasound Description: 91229-89 BPP without NST Engine Cowling Installer: Radha Matson RDMS Physician: Juan Miguel Marie MD, FACOG Electronically signed by: Juan Miguel Marie MD, FACOG at: 08:29 Procedure Note Juan Miguel Marie MD - 07/26/2025 PAT NAME: KARMEN GU MED REC#: [id number] DA: 2000 PAT GEND: F PAT TYPE: O EXAM RO: [id number] REF PHYS DHAVAL MILTON Comparison Studies The findings of this study are compared to the prior ultrasound studydated 06/27/25 Patient Status Outpatient Indication ======== Gestational diabetes. Hx PPROM and PTD 32 wk. Morbid obesity BMI 40. Maternal Assessment Ebcwcv295 cm Height (ft)4 ft Height (in)9 in Lwvwaq87 kg Weight (lb)190 lb BMI40.35 kg/m Method ======= Transabdominal ultrasound examination ========= Rasmussen . Number of fetuses: 1 Dating ====== GA by prior [id number] w + 2 d CHANTE by prior assessment:09/18/2025 Ultrasound examination on:07/26/2025 GA by U/S based upon:AC, BPD, Femur, HC GA by U/S33 w + 3 d CHANTE by U/S:09/10/2025 Method of dating:Restore dating from previous exam Previous dating:based on stated CHANTE, selected on 06/27/2025 Agreed CHANTE of previous datin09/18/2025 Assigned:based on stated CHANTE, selected on 06/27/2025 Assigned GA32 w + 2 d Assigned CHANTE:09/18/2025 d Biometry Standard BPD84.9 mm 34w 1d 90% Hadlock MAQ752.0 mm 38w 4d >99% Yocasta HC320.2 mm 36w 1d 96% Hadlock Cerebellum tr45.0 mm 34w 4d 91% Hill AC277.3 mm 31w 6d 34% Hadlock Femur60.9 mm 31w 4d 21% Hadlock HC / AC1.15 EFW1,957 g 32w 0d 42% Hadlock EFW (lb)4 lb EFW (oz)5 oz EFW by:Hadlock (ATG-KQ-KB-FL) Extended Cav. septi pel. tr7.7 mm CM5.1 mm 5% Nicolaides Head / Face / Neck Cephalic index0.75 9% Nicolaides Extremities / Bony Struc FL / BPD0.72 FL / HC0.19 FL / AC0.22 Other Structures BQR882 bpm General Evaluation Cardiac activity present. FHR 143 bpm. movements present. Presentation cephalic. Placenta Placental site: anterior. Umbilical cord Cord vessels: 3 vessel cord. Amniotic fluid Amount of AF: normal. MVP 5.2 cm. UMM 18.4 cm. Q1 5.2 cm,Q2 4.6 cm, Q3 4.5 cm, Q4 4.2 cm. Anatomy Cranium:Normal Cavum septi pellucidi:Normal Cerebellum:Normal Cisterna magna:Normal Head / Neck Rt lateral ventricle:Normal Lt lateral ventricle:Normal Lips:Normal Profile:Normal Nose:Normal 4-chamber view:Appears normal RVOT view:Normal LVOT view:Normal Heart / Thorax 3-vessel view:Normal 6-injotj-ghhmqwd view:normal Cord insertion:Normal Stomach:Appears normal Kidneys:Appears normal Bladder:Appears normal Gender:male Wants to know gender:yes Maternal Structures Uterus / Cervix Cervical ieulxv81.9 mm Doppler Arterial Umbilical A PI1.05 77% Celio Umbilical A RI0.66 73% Celio Umbilical A PS52.51 cm/s 71% Ebbing Umbilical A ED18.67 cm/s Umbilical A TAmax34.46 cm/s 68% Ebbing Umbilical A MD18.20 cm/s Umbilical A S / D2.99 68% Celio Umbilical A HR149 bpm Biophysical Profile 2: breathing movements 2: Gross body movements 2: tone 2: Amniotic fluid volume 07/05 Biophysical profile score Consultation / Office Visit Office note to follow Impression Today's exam reveals a SIUP in cephalic presentation with biometryconsistent with dates. Limited anatomic survey appears normal. TheAFI and BPP are normal. Recommendation Follow-up as clinically indicated. Coding ======= Description:15999-71 Follow Up Ultrasound Description:06516-75 BPP without NST Engine Cowling Installer: Radha Matson RDMS Physician: Juan Miguel Marie MD, FACOG Electronically signed by: Juan Miguel Marie MD, FACOG at: 08:29 us Sarah George MD IMG US ORDERABLES Final Result documented in this encounter Visit Diagnoses Diagnosis Bicornuate uterus- Primary Diet controlled gestational diabetes mellitus (GDM) in third trimester Bicornuate uterus Diet controlled gestational diabetes mellitus (GDM) in third trimester documented in this encounter Care Teams Live Source Operator Relationship Specialty Start Date End Date Mingo Limon MD [address] [place] [address] [place] [address] PCP - General Internal Medicine 07/30/22 documented as of this encounter
--- OUTSIDE RECORDS SUMMARY | 2025-07-01 11:45 | XMS_ITS | Encounter Summary ---
Author Organization [facility] Address [address] [place] [address] Care Team Providers Care Builder Beam Name Role Phone Mingo Limon MD Primary Care Provider [phone] Encounter Details Date Type Department Care Team (Latest Contact Info) Description 07/01/2025 11:45 AM EDT - 07/01/2025 11:59 PM EDT Hospital Encounter [facility] DIABETES ED [address] [facility] [address] [place] [address] Discharge Disposition: Home or Self [...] 180 tablet 1 06/13/2025 Continuous Glucose Sensor (EasySizecom G7 Sensor) [facility] USE As directed EVERY 10 DAYS [...] for assessment and notes if you use [employer]. If you are not an [employer] user a copy of patient's assessment and notes will be sent per routine. Thank you. Electronically signed by: Yelena De La Paz RN, [facility] 07/01/25 12:42 EDT documented in this encounter Plan of Treatment Upcoming Encounters Date Type Department Care Team (Late st Contact Info) Description 08/09/2025 10:00 AM EDT Office Visit [facility] CARDIOLOGY [address] [place] [address] SeFranchesca he, ELECTRONIC PREPRESS TECHNICIAN [address] [place] [address] 08/19/2025 8:45 AM EDT Office Visit [facility] PRIMARY CARE [address] [place] [address] Mingo Limon MD [address] [place] [address] [place] [address] 08/23/2025 7:30 AM EDT Office Visit [facility] MATERNAL MEDICINE [address] [place] [address] 08/23/2025 7:30 AM EDT Appointment [facility] US PER DIAG CTR [address] [place] [address] documented as of this encounter Visit Diagnoses Not on filedocumented in this encounter Care Teams Builder Beam Relationship Specialty Start Date End Date Mingo Limon MD [address] [place] [address] PCP - General Internal Medicine 07/30/22 documented as of this encounter
--- OUTSIDE RECORDS SUMMARY | 2025-07-26 07:27 | XMS_ITS | Encounter Summary ---
Author Organization [facility] Address [address] [place] [address] Care Team Providers Care Cullet Trucker Name Role Phone Mingo Limon MD Primary Care Provider [phone] Reason for Referral * Diagnostic Imaging (Routine) - Closed Specialty Diagnoses / Procedures Referred By Hansel Referred To Contact Radiology Diagnoses Bicornuate uterus Diet controlled gestational diabetes mellitus (GDM) in third trimester Procedures [facility] Sarah George MD [address] [address] Phone: tel: fax: [facility] PER DIAG [facility] [address] [place] [address] Phone: tel: Referral ID Status Reason Start Date Expiration Date Visits Re quested Visits Authorized Closed 07/02/2025 10/01/2026 1 1 Reason for Visit * Diagnostic Imaging (Routine) - Closed Specialty Diagnoses / Procedures Referred By Contac Referred To Contact Radiology Diagnoses Bicornuate uterus Diet controlled gestational diabetes mellitus (GDM) in third trimester Procedures [facility] Sarah George MD [address] [facility] [address] [place] [address] Phone: tel: fax: [facility] PER DIAG CTR [address] [place] [address] Phone: tel: Referral ID Status Reason Start Date Expiration Date Visits Re quested Visits Authorized [id number] Closed 07/02/2025 10/01/2026 1 1 Encounter Details Date Type Department Care Team (Late st Contact Info) Description 07/26/2025 7:27 AM EDT - 07/26/2025 11:59 PM EDT Hospital Encounter [facility] PER [facility]AG CTR [address] [place] [address] Sarah George MD [address] [facility] [address] [place] [address] Bicornuate uterus; Diet controlled gestational [...] 15 mL 07/24/2025 Insulin Pen Needle (Pen [place]) 31G X 5 MM misc Use 1 [...] [address] [place] [address] Franchesca Sullivan, STERILE PROCESSING TECHNICIAN [address] [place] [address] 08/19/2025 8:45 AM EDT Office Visit [facility] PRIMARY CARE [address] [place] [address] [place] [address] Mingo Limon MD [address] [place] [address] [place] [address] 08/23/2025 7:30 AM EDT Office Visit [facility] MATERNAL MEDICINE [address] [place] [address] 08/23/2025 7:30 AM EDT Appointment [facility] US PER DIAG CTR [address] [place] [address] documented as of this encounter Procedures Procedure Name Priority Date/Time Associated Diagnosis Comments [facility] Routine 07/26/2025 8:11 AM EDT Bicornuate uterus Diet controlled gestational diabetes mellitus (GDM) in third trimester documented in this encounter Results * [facility] (07/26/2025 8:11 AM EDT) Anatomical Region Laterality Modality Ultrasound 07/26/2025 7:44 AM EDT Narrative 07/26/2025 8:29 AM EDT PAT NAME: KARMEN GU MED REC#: [id number] DA: 2000 PAT GEND: F PAT TYPE: O EXAM RO: [id number] REF PHYS MILTON PUENTES Comparison Studies The [...] EFW (oz) 5 oz EFW by: Hadlock ([id number]-FL) Extended Cav. septi pel. tr 7.7 mm [...] Normal Heart / Thorax 3-vessel view: Normal 4-vpmucu-hmojjcq view: normal Cord insertion: Normal Stomach: Appears [...] Follow-up as clinically indicated. Coding ======= Description: 31738-85 Follow Up Ultrasound Description: 87445-21 BPP without NST Human Resource Assistant: Radha Matson RDMS Physician: Juan Miguel Marie MD, FACOG Electronically signed by: Juan Miguel Marie MD, FACOG at: 08:29 Procedure Note Juan Miguel Marie MD - 07/26/2025 PAT NAME: KARMEN GU MED REC#: [id number] DA: 2000 PAT GEND: F PAT TYPE: O EXAM RO: [id number] REF PHYS MILTON PUENTES Comparison Studies The findings of this study are compared to the prior ultrasound studydated 06/27/25 Patient Status Outpatient Indication ======== Gestational diabetes. Hx PPROM and PTD 32 wk. Morbid obesity BMI 40. Maternal Assessment Bjxsys929 cm Height (ft)4 ft Height (in)9 in Aarxpo46 kg Weight (lb)190 lb BMI40.35 kg/m Method ======= Transabdominal ultrasound examination ========= Rasmussen . Number of fetuses: 1 Dating ====== GA by prior [id number] w + 2 d CHANTE by prior [...] GA32 w + 2 d Assigned CHANTE:09/18/2025 [id number] d Biometry Standard BPD84.9 mm 34w 1d 90% Hadlock ROT155.0 mm 38w 4d >99% Yocasta HC320.2 mm 36w 1d 96% Hadlock Cerebellum tr45.0 mm 34w 4d 91% Hill AC277.3 mm 31w 6d 34% Hadlock Femur60.9 mm 31w 4d 21% Hadlock HC / AC1.15 EFW1,957 g 32w 0d 42% Hadlock EFW (lb)4 lb EFW (oz)5 oz EFW by:Hadlock ([id number]-JJ-[id number]-FL) Extended Cav. septi pel. tr7.7 mm CM5.1 mm 5% Nicolaides Head / Face / Neck Cephalic index0.75 9% Nicolaides Extremities / Bony Struc FL / BPD0.72 FL / HC0.19 FL / AC0.22 Other Structures JRE970 bpm General Evaluation Cardiac activity present. FHR [...] LVOT view:Normal Heart / Thorax 3-vessel view:Normal 4-tvthhe-sgczcqh view:normal Cord insertion:Normal Stomach:Appears normal Kidneys:Appears normal [...] Recommendation Follow-up as clinically indicated. Coding ======= Description:38978-09 Follow Up Ultrasound Description:83329-88 BPP without NST Human Resource Assistant: Radha Matson RDMS Physician: Juan Miguel Marie MD, FACOG Electronically signed by: Juan Miguel Marie MD, FACOG at: 08:29 us Sarah George MD IMG US ORDERABLES Final Result documented in this encounter Visit Diagnoses Diagnosis Bicornuate uterus Diet controlled gestational diabetes mellitus (GDM) in third trimester documented in this encounter Care Teams Cullet Trucker Relationship Specialty Start Date End Date Mingo Limon MD [address] [place] [address] [place] [address] PCP - General Internal Medicine 07/30/22 documented as of this encounter
--- OUTSIDE RECORDS SUMMARY | 2025-07-26 07:30 | XMS_ITS | Encounter Summary ---
Author Organization [facility] Address [address] [place] [address] Care Team Providers Care Clinical Nursing Instructor Name Role Phone Mingo Limon MD Primary Care Provider Reason for Referral * Diagnostic Imaging (Routine) - Authorized Specialty Diagnoses / Procedures Referred By Contac t Referred To Contact Radiology Diagnoses Insulin controlled gestational diabetes mellitus (GDM) in third trimester Procedures [facility] Juan Miguel Marie MD [address] [place] [address] Phone: tel: fax: Referral ID Status Reason Start Date Expiration Date V isits Requested Visits Authorized [id number] Authorized 07/26/2025 10/25/2026 1 1 Reason for Visit * Reason Comments GDM, hx PTD @ 32 wks Encounter Details Date Type Department Care Team (Late st Contact Info) Description 07/26/2025 7:30 AM EDT Office Visit [facility]NAL MEDICINE [address] [facility] [address] [place] [phone] Juan Miguel Marie MD [address] [place] [address] Insulin controlled gestational diabetes mellitus (GDM) in [...] 32 wks Subjective History of Present Illness: Karmne Gu is a 25 y.o. 32w2d who [...] 0 Continuous Glucose Sensor (Dexcom G7 Sensor) [facility] [place], USE As directed EVERY 10 DAYS, Disp: [...] Disp: , Rfl: Insulin Pen Needle (Pen [place]) 31G X 5 MM misc, Use 1 [...] follow-up in 4 weeks. Orders: - [facility] [place]; Future Follow Up 4-week I spent 10 [...] Juan Miguel Marie MD, FACOG Maternal Medicine, [facility] documented in this encounter Plan of Treatment Upcoming Encounters Date Type Department Care Team (Late st Contact Info) Description 08/09/2025 10:00 AM EDT Office Visit [facility] CARDIOLOGY [address] [place] [phone] Franchesca Sullivan, NIRAV [address] [place] [address] [place] [address] 08/19/2025 8:45 AM EDT Office Visit [facility] PRIMARY CARE [address] [place] [address] [place] [phone] Mingo Limon MD [address] [place] [address] [place] [address] 08/23/2025 7:30 AM EDT Office Visit [facility] MATERNAL MEDICINE [address] [place] [address] 08/23/2025 7:30 AM EDT Appointment [facility] US PER DIAG CTR [address] [place] [address] Scheduled Orders Name Type Priority Associated Diagnoses Orde r Schedule [facility] Imaging Routine Insulin controlled gestational diabetes mellitus (GDM) in third trimester Expected: 07/31/2025 (Approximate), Expires: 07/26/2026 documented as of this encounter Visit Diagnoses Diagnosis Insulin controlled gestational diabetes mellitus (GDM) in third trimester- Primary documented in this encounter Care Teams Clinical Nursing Instructor Relationship Specialty Start Date End Date Mingo Limon MD [address] [place] [address] PCP - General Internal Medicine 07/30/22 documented as of this encounter
--- OUTSIDE RECORDS SUMMARY | 2025-08-01 07:59 | XMS_ITS | Clinical Summary ---
Author Organization [facility] Address [address] [place] [address] Care Team Providers Care Major Sales Associate Name Role Phone Mingo Limon MD Primary Care Provider [phone] Allergies No known active allergies Medications fluticasone [...] 06/26/20 25 Active Insulin Pen Needle (Pen Salineno) 31G X 5 MM misc Use 1 [...] that on Tuesday she bent over to strip picker her child and her heart rate [...] of which were normal. Referred to [facility] cardiology who completed echo 06/14/2024 which [...] need to switch to labetalol per her CANDY VENDOR Dr. Kimbrough at [facility]. Patient has been instructed to start out [...] of which were normal. Referred to [facility] cardiology who completed echo 06/14/2024 which was normal and had nonconcerning Holter monitor. Initial metoprolol 25 mg ER daily, switch to propranolol 20 mg in the potential she could get in the future this would prefer medicine. Overall she is clinically feeling better on regimen medicine. Keep follow-up with [facility] cardiology. Assessment & Plan (06/14/2024 4:33 [...] sensation with sitting to standing, with equivocal [place]-Hallpike maneuver which has since resolved. At that [...] a bit of a dizzy sensation with [place]-Hallpike maneuver to the left she did not [...] Patient previously been using NuvaRing through her gore maker, but has interested in switching over to [...] to treatment she could discuss with her OB/gore maker currently with concern, about next treatment option. [...] , and recent testing through [facility] edge bander hand reveals what appears to be a failed 1 hour 2-hour and 3-hour glucose challenge test, as such it appears she is progressing to a similar pattern. No current medications at this time but keep regular follow-up with edge bander hand. 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 Santos, edge bander hand and [facility]. Plan in place with potential complications of transition to [facility] [place] if she delivers [...] diabetes mellitus. Nonetheless keep regular follow-up with OB/gore maker who has placed her on glipizide 5 [...] diagnosis by review of her history, with [place] forms showing the same. No comorbid sleep [...] with stability prefer to continue as per edge bander hand. Of note we had transiently held ADHD [...] diagnosis by review of her history, with [place] forms showing the same. No comorbid sleep [...] with stability prefer to continue as per edge bander hand. Of note we had transiently held ADHD [...] diagnosis by review of her history, with [place] forms showing the same. No comorbid sleep [...] diagnosis by review of her history, with [place] forms showing the same. No comorbid sleep [...] diagnosis by review of her history, with [place] forms showing the same. No comorbid sleep [...] diagnosis by review of her history, with [place] forms showing the same. 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 Reinforced healthy diet, good activity level is [...] Description 07/26/2025 7:30 AM EDT Office Visit [facility] [address] [facility] [address] [place] [phone] Juan Miguel Marie MD Insulin controlled gestational diabetes mellitus (GDM) in third trimester (Primary Dx) 07/26/2025 7:27 AM EDT - 07/26/2025 11:59 PM EDT Hospital Encounter [facility] US PER DIAG CTR [address] [place] [address] Sarah George MD Bicornuate uterus; Diet controlled gestational diabetes mellitus (GDM) in third trimester Discharge Disposition: Home or Self Care 07/26/2025 Travel 07/24/2025 Medication Therapy Management [facility] [address] [facility] [address] [place] [address] [phone] Daija Murray MD 07/20/2025 Refill [facility] [address] [place] [address] [place] [address] Mingo Limon MD ADHD, predominantly inattentive type 07/17/2025 Medication Therapy Management [facility] [address] [facility] [address] [place] [address] Daija Murray MD 07/16/2025 Education [facility] DIABETES ED [address] [facility] [address] [place] [address] Yelena De La Paz RN 07/11/2025 Medication Therapy Management [facility] [address] [facility] [address] [place] [phone] Daija Murray MD 07/03/2025 Medication Therapy Management [facility] [address] [facility] [address] [place] [address] Daija Murray MD 07/03/2025 Telephone [facility] [address] [facility] [address] [place] [phone] Vira Paniagua RN Advice Only 07/01/2025 11:45 AM EDT - 07/01/2025 11:59 PM EDT Hospital Encounter [facility] DIABET[facility] ED [address] [facility] [address] [place] [phone] Discharge Disposition: Home or Self Care 07/01/2025 Travel 06/27/2025 11:15 AM EDT Office Visit [facility] [address] [facility] [address] [place] [phone] Sarah George MD Bicornuate uterus (Primary Dx); Diet controlled gestational diabetes mellitus (GDM) in third trimester 06/27/2025 11:01 AM EDT - 06/27/2025 11:59 PM EDT Hospital Encounter [facility] US PER DIAG CTR [address] [place] [address] Sarah George MD Bicornuate uterus Discharge Disposition: Home or Self Care 06/27/2025 Documentation [facility] [address] [facility] [address] [place] [address] Vira Paniagua RN 06/27/2025 Travel 06/24/2025 12:49 PM EDT - 06/24/2025 11:59 PM EDT Hospital Encounter [facility] DIABETES ED [address] [place] [address] Juan Miguel Marie MD Discharge Disposition: Home or Self Care 06/24/2025 Travel 06/13/2025 1:00 PM EDT Office Visit [facility] [address] [place] [address] [place] [address] Mingo Limon MD ADHD, predominantly inattentive type (Primary Dx); Anxiety and depression; Gestational diabetes mellitus (GDM) in second trimester controlled on oral hypoglycemic drug; Mixed hyperlipidemia; Palpitations 06/13/2025 Travel 05/27/2025 Refill [facility] [address] [place] [address] [place] [address] Mingo Limon MD ADHD, predominantly inattentive type 05/23/2025 10:30 AM EDT Office Visit [facility] [address] [place] [address] Sarah George MD Bicornuate uterus (Primary Dx) 05/23/2025 10:06 AM EDT - 05/23/2025 11:59 PM EDT Hospital Encounter [facility] US PER DIAG CTR [address] [place] [address] Milton Puentes MD 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, antepartum; History of delivery, currently ; Tachycardia; History of gestational diabetes in prior , currently ; , unspecified gestational age; Encounter for repeat ultrasound of pyelectasis, antepartum, not applicable or unspecified fetus Discharge Disposition: Home or Self Care 05/23/2025 Travel 05/16/2025 Telephone [facility] [address] [place] [address] Franchesca Hare, NIRAV 05/13/2025 Results Follow-Up [facility] [address] [place] [address] [place] [address] Mingo Limon MD 05/10/2025 1:15 PM EDT Office Visit [facility] [address] [place] [address] [place] [address] Mingo Limon MD Acute cystitis without hematuria (Primary Dx); ADHD, predominantly inattentive type; Anxiety and depression 05/10/2025 12:30 PM EDT Office Visit [facility] [address] [place], [place] [address] Franchesca Hare, NIRAV Palpitations (Primary Dx); Tachycardia 05/10/2025 Travel 05/08/2025 Telephone [facility] [address] [place], [place] [...] Description 08/09/2025 10:00 AM EDT Office Visit [facility] [address] [place] [address] Franchesca Hare W, ROBOT PROGRAMMER [address] [place] [address] [place] [address] 08/19/2025 8:45 AM EDT Office Visit [facility] [address] [place] [address] [place] [address] Mingo Limon MD [address] [place] [address] [place] [address] 08/23/2025 7:30 AM EDT Office Visit [facility] [address] [place] [address] 08/23/2025 7:30 AM EDT Appointment [facility] US PER DIAG CTR [address] [place] [address] Health Maintenance Due Date Last [...] Procedure Name Priority Date/Time Associated Diagnosis Comments [facility] Routine 07/26/2025 8:11 AM EDT Bicornuate uterus Diet controlled gestational diabetes mellitus (GDM) in third trimester SCANNED - LABS 07/15/2025 SCANNED - LABS 07/15/2025 SCANNED - LABS 07/15/2025 [facility] Routine 06/27/2025 11:29 AM EDT Bicornuate uterus SCANNED - LABS 06/16/2025 SCANNED - IMAGING 06/16/2025 SCANNED - LABS 06/10/2025 [facility] Routine 05/23/2025 11:41 AM EDT [...] Recently Relevant to Health Maintenance Results * [facility] (07/26/2025 8:11 AM EDT) Only the most recent of3 resultswithin the time period is included. Anatomical Region Laterality Modality Ultrasound 07/26/2025 7:44 AM EDT Narrative 07/26/2025 8:29 AM EDT PAT NAME: KARMEN BRAVO MED REC#: [id number] DA: [id number] PAT GEND: F PAT TYPE: O EXAM RO: [id number] REF PHYS LACIE PUENTESK Comparison Studies The [...] EFW (oz) 5 oz EFW by: Hadlock (GDV-VW-YY-FL) Extended Cav. septi pel. tr 7.7 mm [...] Normal Heart / Thorax 3-vessel view: Normal 5-ybhkdr-xufnqrc view: normal Cord insertion: Normal Stomach: Appears [...] Follow-up as clinically indicated. Coding ======= Description: 59553-72 Follow Up Ultrasound Description: 12906-21 BPP without NST Reconsignment Clerk: Radha Matson RDMS Physician: Juan Miguel Marie MD, FACOG Electronically signed by: Juan Miguel Marie MD, FACOG at: 08:29 Procedure Note Juan Miguel Marie MD - 07/26/2025 PAT NAME: KARMEN BRAVO MED REC#: [id number] DA: 2000 PAT GEND: F PAT TYPE: O EXAM RO: [id number] REF PHYS MILTON PUENTES Comparison Studies The findings of this study are compared to the prior ultrasound studydated 06/27/25 Patient Status Outpatient Indication ======== Gestational diabetes. Hx PPROM and PTD 32 wk. Morbid obesity BMI 40. Maternal Assessment Fsnfkl133 cm Height (ft)4 ft Height (in)9 in Oeqfkj40 kg Weight (lb)190 lb BMI40.35 kg/m Method ======= Transabdominal ultrasound examination ========= Rasmussen . Number of fetuses: 1 Dating ====== GA by prior [id number] w + 2 d CHANTE by prior [...] GA32 w + 2 d Assigned CHANTE:09/18/2025 [id number] d Biometry Standard BPD84.9 mm 34w 1d 90% Hadlock LED848.0 mm 38w 4d >99% Yocasta HC320.2 mm 36w 1d 96% Hadlock Cerebellum tr45.0 mm 34w 4d 91% Hill AC277.3 mm 31w 6d 34% Hadlock Femur60.9 mm 31w 4d 21% Hadlock HC / AC1.15 EFW1,957 g 32w 0d 42% Hadlock EFW (lb)4 lb EFW (oz)5 oz EFW by:Hadlock (DNN-CG-PN-FL) Extended Cav. septi pel. tr7.7 mm CM5.1 mm 5% Nicolaides Head / Face / Neck Cephalic index0.75 9% Nicolaides Extremities / Bony Struc FL / BPD0.72 FL / HC0.19 FL / AC0.22 Other Structures WNW774 bpm General Evaluation Cardiac activity present. FHR [...] LVOT view:Normal Heart / Thorax 3-vessel view:Normal 7-fylufn-kpznvhx view:normal Cord insertion:Normal Stomach:Appears normal Kidneys:Appears normal Bladder:Appears normal Gender:male Wants to know gender:yes Maternal Structures Uterus / Cervix Cervical pqavzy88.9 mm Doppler Arterial Umbilical A PI1.05 77% [...] Recommendation Follow-up as clinically indicated. Coding ======= Description:17233-31 Follow Up Ultrasound Description:61016-01 BPP without NST Reconsignment Clerk: Radha Matson RDMS Physician: Juan Miguel Marie [...] 1:49 PM EDT 05/10/2025 Comment:Urine Release to [facility] i [facility]ative [facility] - 05/12/2025 6:37 AM EDT Performed at: 01 - [address] [id number] Tar Distributor Operator: Dagoberto Campbell PhD, Phone: [phone] Mingo Limon MD MICROBIOLOGY - GENERAL ORDERABLE S Final Result [facility] [address] [place] [address], [facility] [address] [place] [address], * (ABNORMAL) POC Urinalysis Dipstick (05/10/2025 1:38 PM EDT) Color Dark Yellow Yellow, Straw, Dark Yellow, Char [facility] Clarity, UA Cloudy(A) Clear [facility] Glucose, UA Negative Negative mg/dL [facility] Bilirubin Negative Negative [facility] Ketones, UA Negative Negative [facility] Specific Fields 1.010 1.005 - 1.030 [facility] Blood, UA Negative Negative [facility] pH, Urine 8.0 5.0 - 8.0 [facility] Protein, POC Negative Negative mg/dL [facility] Urobilinogen, UA Normal Normal, 0.2 E.U./dL [facility] Leukocytes Large (3+)(A) Negative [facility] Nitrite, UA Negative Negative [facility] Urine 05/10/2025 1:38 PM EDT Mingo Limon MD POINT OF CARE TEST ORDERABLES Fi nal Result [facility]
[address] [phone] * LIQUID-BASED PAP SMEAR WITH HPV GENOTYPING IF ASCUS (GEENA,COR,MAD) (08/27/2024 9:58 AM EDT) Reference Lab Report [facility] [address] [place] [address] or [phone] Masood Herron M.D., [place] PATIENT NAME LABORATORY NO. 651 KARMEN BRAVO [id number] AGE SEX SSN CLIENT REF # [facility] 22 2000 F [id number] Anuradha RENDON REQUESTING Joe [place] [address] CECILIA CONTRERAS DATE COLLECTED DATE RECEIVED DATE [...] of chlamydial and gonococcal disease using the [place] system. LACTATION COORDINATOR: JOSHUA OSORIO (ASCP) CPT CODES: 37573, 19126, 58942 09/04/2024 10:12 AM EDT [facility] ThinPrep Vial Cervix uteri structure / Unknown Collection / Unknown 08/27/2024 9:58 AM EDT 08/27/2024 9:58 AM EDT Cecilia Contreras ROBOT PROGRAMMER PATHOLOGY/CYTOLOGY ORDERA BLES Final Result [facility]
[address] [place] [address], * (ABNORMAL) Lipid Panel (05/21/2024 12:34 PM [...] - 05/22/2024 8:10 AM EDT Performed at: [address] [place] [id number] Tar Distributor Operator: Dagoberto Campbell PhD, Phone: [phone] us Mingo Limon MD LAB BLOOD ORDERABLES Final Resul t [facility] ([facility]) [address] [place] [address], [place] [phone] [facility] [address] [place] [address], [place] [phone] from Last 3 Months or Most Recently Relevant to Health Maintenance Insurance [facility] Care Teams Major Sales Associate Relationship Specialty Start Date End Date Mingo Limon MD [address] [place] [address] [place] [address] PCP - General Internal Medicine 07/30/22
--- OUTSIDE RECORDS SUMMARY | 2025-08-01 07:59 | XMS_ITS | Encounter Summary ---
Author Organization [facility] Address [address] [place] [address] Care Team Providers Care Manager Audio Name Role Phone Mingo Limon MD Primary Care Provider [phone] Encounter Details Date Type Department Care Team [...] CLINIC [place] [phone] Franchesca Sullivan W, PLASTICS REPAIRER [address] [place] [address] [place] [address] 08/19/2025 8:45 AM EDT Office Visit [facility] [address] [place] [phone] Mingo Limon MD [address] [place] [address] 08/23/2025 7:30 AM EDT Office Visit [facility] [address] [place] [address] 08/23/2025 7:30 AM EDT Appointment [facility] US PER DIAG CTR [address] [place] [address] documented as of this encounter Visit Diagnoses Not on filedocumented in this encounter Care Teams Manager Audio Relationship Specialty Start Date End Date Mingo Limon MD [address] [place] [address] PCP - General Internal Medicine 07/30/22 documented as of this encounter
--- OUTSIDE RECORDS SUMMARY | 2025-08-01 07:59 | XMS_ITS | Encounter Summary ---
Author Organization [facility] Address [address] [place] [address] Care Team Providers Care Cadmium Plater Name Role Phone Mingo Limon MD Primary Care Provider [phone] Encounter Details Date Type Department Care Team (Late st Contact Info) Description 06/27/2025 Documentation [facility] [address] [facility] [address] [place] [address] Vira Paniagua, RN Social History [...] use vitaliy. Patient is to notify through [employer] once she has entered in our clinic [...] [address] [place] [address] Franchesca Sullivan, CONFECTIONERY MAKER [address] [place] [address] 08/19/2025 8:45 AM EDT Office Visit [facility] [address] [place] [address] [place] [address] Mingo Limon MD [address] [place] [address] [place] [address] 08/23/2025 7:30 AM EDT Office Visit [facility] [address] [place] [address] 08/23/2025 7:30 AM EDT Appointment [facility] PER [facility] [address] [place] [address] documented as of this encounter Visit Diagnoses Not on filedocumented in this encounter Care Teams Cadmium Plater Relationship Specialty Start Date End Date Mingo Limon MD [address] [place] [address] PCP - General Internal Medicine 07/30/22 documented as of this encounter
--- OUTSIDE RECORDS SUMMARY | 2025-08-01 08:00 | XMS_ITS | Clinical Summary ---
Author Organization [facility] Address [address] [place] [address] Care Team Providers Care Boiler Cleaner Name Role Phone Pcp, No Primary Care [...] drink first t elyssa in the morning (EYE-SADDLE STITCHING MACHINE OPERATOR) to steady your nerves or to get [...] [facility]-Adult SDOH Screenings 2020 [facility]-Pap Smear 2023 [id number] Vaccine ( season) 2025 10/12/2021, 04/01/2021, 03/04/2021 [...] require contact precautions indefinitely. 05/07/2023 05/07/2023 Insurance [facility] Advance Directives * Full Code (Latest Code Status on File) Date Activated Date Inactivated Comments 05/03/2023 8:40 AM 05/09/2023 7:09 PM Question Answer Comments Patient has decision-making capacity? Yes Care Teams Boiler Cleaner Relationship Specialty Start Date End Date Pcp, No [address] [place] [address] PCP - General Family Medicine 05/02/23
--- OUTSIDE RECORDS SUMMARY | 2025-08-01 08:00 | XMS_ITS | Encounter Summary ---
Author Organization [facility] Address [address] [place] [address] Care Team Providers Care Deck Cadet Name Role Phone Mingo Limon MD Primary Care Provider [phone] Encounter Details Date Type Department Care Team (Late st Contact Info) Description 07/11/2025 Medication Therapy Management [facility] [address] [place] [phone] Daija Murray MD [address] [place] [address] Social History Tobacco Use Types Packs/Day Years [...] [facility] [address] [place] [address] Franchesca Sullivan, CASH RECONCILIATION SPECIALIST [address] [place] [address] [place] [address] 08/19/2025 8:45 AM EDT Office Visit [facility] [address] [place] [address] [place] [address] Mingo Limon MD [address] [place] [address] [place] [address] 08/23/2025 7:30 AM EDT Office Visit [facility] [address] [facility] [address] [place] [address] 08/23/2025 7:30 AM EDT Appointment [facility] PER DI[facility] CTR [address] [place] [address] documented as of this encounter Visit Diagnoses Not on filedocumented in this encounter Care Teams Deck Cadet Relationship Specialty Start Date End Date Mingo Limon MD [address] [place] [address] [place] [address] PCP - General Internal Medicine 07/30/22 documented as of this encounter
--- OUTSIDE RECORDS SUMMARY | 2025-08-01 08:00 | XMS_ITS | Encounter Summary ---
Author Organization [facility] Address [address] [place] [address] Care Team Providers Care Ham Curer Name Role Phone Mingo Limon MD Primary Care Provider [phone] Encounter Details Date Type Department Care Team [...] Description 08/09/2025 10:00 AM EDT Office Visit [facility] [address] [place] [address] Franchesca Sullivan W, COMMERCIAL DIRECTOR [address] [place] [address] [place] [address] 08/19/2025 8:45 AM EDT Office Visit [facility] [address] [place] [phone] Mingo Limon MD [address] [place] [address] 08/23/2025 7:30 AM EDT Office Visit [facility] [address] [place] [address] 08/23/2025 7:30 AM EDT Appointment [facility] US PER DIAG CTR [address] [place] [address] documented as of this encounter Visit Diagnoses Not on filedocumented in this encounter Care Teams Ham Curer Relationship Specialty Start Date End Date Mnigo Limon MD [address] [place] [address] PCP - General Internal Medicine 07/30/22 documented as of this encounter
--- OUTSIDE RECORDS SUMMARY | 2025-08-01 08:00 | XMS_ITS | Encounter Summary ---
Author Organization [facility] Address [address] [place] [address] Care Team Providers Care Senior Mechanical Development Engineer Name Role Phone Mingo Limon MD Primary Care Provider [phone] Reason for Visit * Reason Onset Date Comments Advice Only 07/03/2025 Encounter Details Date Type Department Care Team (Late st Contact Info) Description 07/03/2025 Telephone [facility] MATERNAL MEDICINE [address] [facility] [address] [place] [address] Vira Paniagua boot repairer Only Social History Tobacco Use Types Packs/Day [...] to use [facility] [place] Vira Paniagua RN documented in this encounter Plan of Treatment Upcoming Encounters Date Type Department Care Team (Late st Contact Info) Description 08/09/2025 10:00 AM EDT Office Visit [facility] CARDIOLOGY [address] [place] [phone] Franchesca Sullivan, CAUSTIC PREPARER [address] [place] [address] 08/19/2025 8:45 AM EDT Office Visit [facility] PRIMARY CARE [address] [place] [address] [place] [phone] Mingo Limon MD [address] [place] [address] [place] [address] 08/23/2025 7:30 AM EDT Office Visit [facility] MATERNAL MEDICINE [address] [place] [address] 08/23/2025 7:30 AM EDT Appointment [facility] US PER DIAG CTR [address] [place] [address] documented as of this encounter Visit Diagnoses Not on filedocumented in this encounter Care Teams Senior Mechanical Development Engineer Relationship Specialty Start Date End Date Mingo Limon MD [address] [place] [address] [place] [address] PCP - General Internal Medicine 07/30/22 documented as of this encounter
--- OUTSIDE RECORDS SUMMARY | 2025-08-01 08:00 | XMS_ITS | Encounter Summary ---
Author Organization [facility] Address [address] [place] [address] Care Team Providers Care Casework Supervisor Name Role Phone Mingo Limon MD Primary Care Provider [phone] Encounter Details Date Type Department Care Team [...] [facility] CARDIOLOGY [address] [place] [id number] Franchesca Sullivan W, MEDICAL DOCTOR MD [address] [place] [address] [place] [address] 08/19/2025 8:45 AM EDT Office Visit [facility] PRIMARY CARE [address] [place] [address] Mingo Limon MD [address] [place] [address] 08/23/2025 7:30 AM EDT Office Visit [facility] MATERNAL MEDICINE [address] [place] [address] 08/23/2025 7:30 AM EDT Appointment [facility] US PER DIAG CTR [address] [place] [address] documented as of this encounter Visit Diagnoses Not on filedocumented in this encounter Care Teams Casework Supervisor Relationship Specialty Start Date End Date Mingo Limon MD [address] [place] [address] PCP - General Internal Medicine 07/30/22 documented as of this encounter
--- OUTSIDE RECORDS SUMMARY | 2025-08-01 08:00 | XMS_ITS | Encounter Summary ---
Author Organization [facility] Address [address] [place] [address] Care Team Providers Care Movers Name Role Phone Mingo Limon MD Primary Care Provider [phone] Encounter Details Date Type Department Care Team (Late st Contact Info) Description 07/03/2025 Medication Therapy Management [facility] MATERNAL MEDICINE [address] [place] [place] [phone] Daija Murray MD [address] [place] [address] Social History Tobacco Use Types Packs/Day Years [...] [facility] CARDIOLOGY [address] [place] [address] Franchesca Sullivan, TAR HEATER OPERATOR [address] [place] [address] [place] [address] 08/19/2025 8:45 AM EDT Office Visit [facility] PRIMARY CARE [address] [place] [address] [place] [address] Mingo Limon MD [address] [place] [address] [place] [address] 08/23/2025 7:30 AM EDT Office Visit [facility] MATERNAL MEDICINE [address] [facility] [address] [place] [address] 08/23/2025 7:30 AM EDT Appointment [facility] PER DIAG CTR [address] [place] [address] documented as of this encounter Visit Diagnoses Not on filedocumented in this encounter Care Teams Movers Relationship Specialty Start Date End Date Mingo Limon MD [address] [place] [address] [place] [address] PCP - General Internal Medicine 07/30/22 documented as of this encounter
--- OUTSIDE RECORDS SUMMARY | 2025-08-01 08:00 | XMS_ITS | Encounter Summary ---
Author Organization [facility] Address [address] [place] [address] Care Team Providers Care Programs Manager Name Role Phone Mingo Limon MD Primary Care Provider [phone] Encounter Details Date Type Department Care Team [...] Description 08/09/2025 10:00 AM EDT Office Visit [facility] CARDIOLOGY [address] [place] [address] Franchesca Sullivan W, STENCIL INSPECTOR [address] [place] [address] 08/19/2025 8:45 AM EDT Office Visit [facility] PRIMARY CARE [address] [place] [phone] Mingo Lmion MD [address] [place] [address] 08/23/2025 7:30 AM EDT Office Visit [facility] MATERNAL MEDICINE [address] [place] [address] 08/23/2025 7:30 AM EDT Appointment [facility] US PER DIAG CTR [address] [place] [address] documented as of this encounter Visit Diagnoses Not on filedocumented in this encounter Care Teams Programs Manager Relationship Specialty Start Date End Date Mingo Limon MD [address] [place] [address] PCP - General Internal Medicine 07/30/22 documented as of this encounter
--- OUTSIDE RECORDS SUMMARY | 2025-08-01 08:01 | XMS_ITS | Encounter Summary ---
Author Organization [facility] Address [address] [place] [address] Care Team Providers Care Bonding Equipment Operator Name Role Phone Mingo Limon MD Primary Care Provider [phone] Encounter Details Date Type Department Care Team (Late st Contact Info) Description 07/17/2025 Medication Therapy Management [facility] MATERNAL MEDICINE [address] [place] [phone] Daija Murray MD [address] [place] [address] Social History Tobacco Use Types Packs/Day Years [...] Description 08/09/2025 10:00 AM EDT Office Visit [facility] CARDIOLOGY [address] [place] [address] Franchesca Sullivan, OCCUPATIONAL PSYCHOLOGIST [address] [place] [address] [place] [address] 08/19/2025 8:45 AM EDT Office Visit [facility] PRIMARY CARE [address] [place] [address] [place] [address] Mingo Limon MD [address] [place] [address] [place] [address] 08/23/2025 7:30 AM EDT Office Visit [facility] MATERNAL MEDICINE [address] [facility] [address] [place] [address] 08/23/2025 7:30 AM EDT Appointment [facility] PER DIAG CTR [address] [place] [address] documented as of this encounter Visit Diagnoses Not on filedocumented in this encounter Care Teams Bonding Equipment Operator Relationship Specialty Start Date End Date Mingo Limon MD [address] [place] [address] [place] [address] PCP - General Internal Medicine 07/30/22 documented as of this encounter
--- OUTSIDE RECORDS SUMMARY | 2025-08-01 08:01 | XMS_ITS | Patient Health Record ---
Author Organization [facility] Address [address] [address] Care Team Providers Care Clinical Engineering Manager Name Role Phone SANDOR BLAKELY Unavailable [phone] Sandor Blakely MD Unavailable Unavailable Allergies No [...] W/U Status Risk Notes Problem Allergic rhinitis (51733638) Allergic rhinitis (J30.9) Active confirmed Plan Of Treatment No Information Insurance Providers Payer Name Payer Address Payer Phone Subscriber Number Group Number Insured Name Patient Relationship to Insured Coverage Start Date Coverage End Date [employer] MEDICA[employer] [address] [place] [address] [phone] [id number] [place] [employer] Self - patient is the insured Medical (General) History Medical History History ICD Code DEPRESSION AND ANXIETY Surgical History Surgery Date(Month/Year) WISDOM TEETH 2019
--- OUTSIDE RECORDS SUMMARY | 2025-08-01 08:01 | XMS_ITS | Encounter Summary ---
Author Organization [facility] Address [address] [place] [address] Care Team Providers Care Rope Cleaner Name Role Phone Mingo Limon MD Primary Care Provider [phone] Encounter Details Date Type Department Care Team (Late st Contact Info) Description 07/16/2025 Education DIABETES ED [address] [facility] [address] [place] [address] Yelena De La Paz, RN [...] signed by: Yelena De La Paz RN, [facility] 07/16/25 09:14 EDT documented in this encounter Plan of Treatment Upcoming Encounters Date Type Department Care Team (Late st Contact Info) Description 08/09/2025 10:00 AM EDT Office Visit [facility] CARDIOLOGY [address] [place] [address] Franchesca Sullivan, CHIEF CONTRACT OFFICER [address] [place] [address] 08/19/2025 8:45 AM EDT Office Visit [facility] PRIMARY CARE [address] [place] [address] [place] [phone] Mingo Limon MD [address] [place] [address] [place] [address] 08/23/2025 7:30 AM EDT Office Visit [facility] MATERNAL MEDICINE [address] [place] [address] 08/23/2025 7:30 AM EDT Appointment US PER DIAG CTR [address] [place] [address] documented as of this encounter Visit Diagnoses Not on filedocumented in this encounter Care Teams Rope Cleaner Relationship Specialty Start Date End Date Mingo Limon MD [address] [place] [address] [place] [address] PCP - General Internal Medicine 07/30/22 documented as of this encounter
--- OUTSIDE RECORDS SUMMARY | 2025-08-01 08:02 | XMS_ITS | Encounter Summary ---
Author Organization [facility] Address [address] [place] [address] Care Team Providers Care Ios Architect Name Role Phone Mingo Limon MD Primary Care Provider [phone] Reason for Visit * Reason Comments Med Refill Encounter Details Date Type Department Care Team (Late st Contact Info) Description 07/20/2025 Refill [facility] PRIMARY CARE [address] [place] [address] [place] [address] Mingo Limon MD [address] [place] [address] ADHD, predominantly inattentive type Social [...] 08/09/2025 10:00 AM EDT Office Visit [facility] CARDIOLOGY [address] [place] [address] Franchesca Sullivan, LITHOGRAPHERS PRINTER [address] [place] [address] 08/19/2025 8:45 AM EDT Office Visit [facility] PRIMARY CARE [address] [place] [address] [place] [address] Mingo Limon MD [address] [place] [address] [place] [address] 08/23/2025 7:30 AM EDT Office Visit [facility] MATERNAL MEDICINE [address] [place] [address] 08/23/2025 7:30 AM EDT Appointment [facility] US PER DIAG CTR [address] [place] [address] documented as of this encounter Visit Diagnoses Diagnosis ADHD, 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
--- OUTSIDE RECORDS SUMMARY | 2025-08-01 08:02 | XMS_ITS | Encounter Summary ---
Author Organization [facility] Address [address] [place] [address] Care Team Providers Care Golf Club Head Former Name Role Phone Mingo Limon MD Primary Care Provider [phone] Encounter Details Date Type Department Care Team (Late st Contact Info) Description 07/24/2025 Medication Therapy Management [facility] MATERNAL MEDICINE [address] [place] [place] [phone] Daija Murray MD [address] [place] [address] Social History Tobacco Use Types Packs/Day Years [...] [facility] CARDIOLOGY [address] [place] [address] Franchesca Sullivan, SENIOR CONTROL SYSTEMS ENGINEER [address] [place] [address] [place] [address] 08/19/2025 8:45 AM EDT Office Visit [facility] PRIMARY CARE [address] [place] [address] [place] [address] Mingo Limon MD [address] [place] [address] [place] [address] 08/23/2025 7:30 AM EDT Office Visit [facility] MATERNAL MEDICINE [address] [facility] [address] [place] [address] 08/23/2025 7:30 AM EDT Appointment [facility] PER DIAG CTR [address] [place] [address] documented as of this encounter Visit Diagnoses Not on filedocumented in this encounter Care Teams Golf Club Head Former Relationship Specialty Start Date End Date Mingo Limon MD [address] [place] [address] [place] [address] PCP - General Internal Medicine 07/30/22 documented as of this encounter
--- OUTSIDE RECORDS SUMMARY | 2025-08-01 08:06 | XMS_ITS | Encounter Summary ---
Author Organization [facility] Address [address] [place] [address] Care Team Providers Care Tin Stacker Name Role Phone Mingo Limon MD Primary Care Provider [phone] Encounter Details Date Type Department Care Team [...] Description 08/09/2025 10:00 AM EDT Office Visit [facility] CARDIOLOGY [address] [place] [address] Franchesca Sullivan W, PUSH BUTTON SWITCH ASSEMBLER [address] [place] [address] 08/19/2025 8:45 AM EDT Office Visit [facility] PRIMARY CARE [address] [place] [phone] Mingo Limon MD [address] [place] [address] 08/23/2025 7:30 AM EDT Office Visit [facility] MATERNAL MEDICINE [address] [place] [address] 08/23/2025 7:30 AM EDT Appointment [facility] US PER DIAG CTR [address] [place] [address] documented as of this encounter Visit Diagnoses Not on filedocumented in this encounter Care Teams Tin Stacker Relationship Specialty Start Date End Date Mingo Limon MD [address] [place] [address] PCP - General Internal Medicine 07/30/22 documented as of this encounter
--- NOTE | 2025-08-01 08:12 | US_ITS ---
PROCEDURE: US OB BIOPHYSICAL PROFILE CLINICAL INDICATION: BPP; needs 08/01/25 or 08/02/25 COMPARISON: US US OB <= 14 WEEKS FETUS from 02/15/2025 US US OB /MATERNAL DETAIL from 05/01/2025 US US OB >= 14 WEEKS FETUS from 06/16/2025 FINDINGS: Transabdominal sonographic images of the uterus were obtained. From her established due date she is 33weeks 2days. The following parameters are obtained: Viable Fetus in the cephalic presentation with an anterior placenta grade 2. A small placental Cheatham is seen. The cervix measures 3.0 cm. Measurements: heart Rate = 142bpm Amniotic fluid index: 14.21cm, MVP 5.18 cm Qualitative AFV:2 Breathing movements: 2 Gross Body Movements: 2 Tone: 2 Biophysical profile score: 8 No obvious anomalies evident.Kidneys, stomach, bladder, profile, three-vessel cord appear normal. IMPRESSION: 1. Viable fetus in the cephalic presentation with an anterior placenta grade 2. A small placental Cheatham is seen. 2. The fluid is within normal limits with an amniotic fluid index 14.21 cm, MVP 5.18 cm. 3. Biophysical profile is 8/8 with good breathing movement and movement seen. 4. Limited anatomical scan appears normal. Dictated by: Emanuel Ponce MD 08/02/2025 06:53 Emanuel Ponce MD in [place] 08/02/2025 06:53
== END 2025-08-01 23:59 | disposition home or self-care (01) ==
LOC: RAD 07:57
PROVIDERS: PCP Pediatrics; Visit Provider Obstetrics & Gynecology
DX: O28.3 Abnormal ultrasonic finding on antenatal screening of mother (principal); O99.213 Obesity complicating pregnancy, third trimester; O36.63X0 Maternal care for excessive fetal growth, third trimester, not applicable or unspecified; O24.419 Gestational diabetes mellitus in pregnancy, unspecified control; O10.913 Unspecified pre-existing hypertension complicating pregnancy, third trimester; O34.03 Maternal care for unspecified congenital malformation of uterus, third trimester; Q51.3 Bicornate uterus; E66.9 Obesity, unspecified; Z3A.33 33 weeks gestation of pregnancy
CPT/HCPCS: 76819

== ENCOUNTER 2025-08-03 14:12 | Observation (INO) | payer OTHER, SELFPAY ==
--- OUTSIDE RECORDS SUMMARY | 2025-06-13 13:00 | XMS_ITS | Encounter Summary ---
Author Organization [facility] Address [address] [place] [address] Care Team Providers Care Glass Glazier Name Role Phone Mingo Limon MD Primary Care Provider [phone] Reason for Visit * Reason Comments Med Refill Encounter Details Date Type Department Care Team (Late st Contact Info) Description 06/13/2025 1:00 PM EDT Office Visit [facility] [address] [place] [address] [place] [address] Mingo Limon MD [address] [place] [address] [place] [address] ADHD, predominantly inattentive type (Primary Dx); Anxiety [...] of which were normal. Referred to [facility] cardiology who completed echo 06/14/2024 [...] , and recent testing through [facility] architect marine reveals what appears to be a failed 1 hour 2-hour and 3-hour glucose challenge test, as such it appears she is progressing to a similar pattern. No current medications atthis time but keep regular follow-up with architect marine. Of note she had been placed in [...] diagnosis by review of her history, with [place] forms showing the same. No comorbid sleep [...] with stability prefer to continue as per architect marine. Of note we had transiently held ADHD [...] no SI/HI and handling her stressors appropriately. Overlay Plastician has recommendedher to continue on the regimen [...] diagnosis by review of her history, with [place] forms showing the same. No comorbid sleep [...] with stability prefer to continue as per architect marine. Of note we had transiently held ADHD [...] , and recent testing through [facility] architect marine reveals what appears to be a failed 1 hour 2-hour and 3-hour glucose challenge test, as such it appears she is progressing to a similar pattern. No current medications atthis time but keep regular follow-up with architect marine. Of note she had been placed in [...] all of which were normal. Referred to [facility] who completed echo 06/14/2024 which [...] follow up, ADHD monitoring. Mingo Limon MD [facility] documented in this encounter Plan of Treatment Upcoming Encounters Date Type Department Care Team (Late st Contact Info) Description 08/09/2025 10:00 AM EDT Office Visit [facility] [address] [place] [id number] Franchesca Sullivan, RELIEF PHARMACIST [address] [place] [address] 08/19/2025 8:45 AM EDT Office Visit [facility] [address] [place] [address] [place] [phone] Mingo Limon MD [address] [place] [address] [place] [address] 08/23/2025 7:30 AM EDT Office Visit [facility] [address] [place] [address] 08/23/2025 7:30 AM EDT Appointment [facility] US PER DIAG CTR [address] [place] [address] documented as of this encounter Visit Diagnoses Diagnosis ADHD, predominantly inattentive type- Primary Attention deficit disorder without mention of hyperactivity Anxiety and depression Gestational diabetes mellitus (GDM) in second trimester controlled on oral hypoglycemic drug Mixed hyperlipidemia Palpitations documented in this encounter Care Teams Glass Glazier Relationship Specialty Start Date End Date Mingo Limon MD [address] [place] [address] PCP - General Internal Medicine 07/30/22 documented as of this encounter
--- OUTSIDE RECORDS SUMMARY | 2025-06-24 12:49 | XMS_ITS | Encounter Summary ---
Author Organization [facility] Address [address] [place] [address] Care Team Providers Care Deadener Name Role Phone Mingo Limon MD Primary Care Provider [phone] Encounter Details Date Type Department Care Team (Late st Contact Info) Description 06/24/2025 12:49 PM EDT - 06/24/2025 11:59 PM EDT Hospital Encounter [facility] DIABETES ED [address] [place] [address] Juan Miguel Marie MD [address] [facility] [address] [place] [id number] Discharge Disposition: Home or Self Care Social [...] after each use 10.2 g 1 12/11/2024 buPROPion XL (WELLBUTRIN XL) 300 MG 24 hr tabletIndications:A nxiety and depression Take 1 tablet by mouth Daily. 90 tablet 1 06/13/2025 busPIRone (BUSPAR) 15 MG tabletIndications:A nxiety and depression Take 1 tablet by mouth 2 (Two) Times a Day. 180 tablet 1 06/13/2025 escitalopram (LEXAPRO) 20 MG tabletIndications:A nxiety and [...] Times a Day. 60 tablet 6 05/20/2025 methylphenidate (RITALIN) 5 MG tabletIndications:A DHD, predominantly inattentive type 1 tablet orally at noon 30 tablet 05/27/2025 montelukast (Singulair) 10 MG tabletIndications:S easonal allergic rhinitis due to pollen Take 1 tablet by mouth Every Night. 30 tablet 3 03/01/2024 Vit-Fe Fumarate-FA ( vitamin 27-0.8) 27-0.8 MG tablet tablet Take 1 tablet by mouth Daily. methylphenidate 36 MG CR tabletIndications:A DHD, predominantly inattentive type Take 1 tablet by mouth Every Morning 30 tablet 05/27/2025 documented as of this encounter Consult Notes * Avelina Fierro RN - 06/24/2025 1:00 PM EDT Patient attended the scheduled 90 minute gestational diabetes education class. Please see media tabfor assessment and notes if you use EPIC. If you are not an [employer] user a copy of patient's assessment and notes will be sent per routine. Thank you. documented in this encounter Plan of Treatment Upcoming Encounters Date Type Department Care Team (Late st Contact Info) Description 08/09/2025 10:00 AM EDT Office Visit [facility] CARDIOLOGY [address] [place] [address] SeFranchesca he, BLOOM CONVEYOR OPERATOR [address] [place] [address] 08/19/2025 8:45 AM EDT Office Visit [facility] PRIMARY CARE [address] [place] [address] [place] [address] Mingo Limon MD [address] [place] [address] [place] [address] 08/23/2025 7:30 AM EDT Office Visit [facility] MATERNAL MEDICINE [address] [place] [address] 08/23/2025 7:30 AM EDT Appointment [facility] US PER DIAG CTR [address] [place] [address] documented as of this encounter Visit Diagnoses Not on filedocumented in this encounter Care Teams Deadener Relationship Specialty Start Date End Date Mingo Limon MD [address] [place] [address] [place] [address] PCP - General Internal Medicine 07/30/22 documented as of this encounter
--- OUTSIDE RECORDS SUMMARY | 2025-06-27 11:01 | XMS_ITS | Encounter Summary ---
Author Organization [facility] Address [address] [place] [address] Care Team Providers Care Silk Winding Machine Operator Name Role Phone Mingo Limon MD Primary Care Provider [phone] Reason for Referral * Diagnostic Imaging (Routine) - Closed Specialty Diagnoses / Procedures Referred By Hansel t Referred To Contact Radiology Diagnoses Bicornuate uterus Procedures [facility] Diagnostic [place] Sarah George MD [address] [address] Phone: tel: fax: [facility] [address] [place] [address] Phone: tel: Referral ID Status Reason Start Date Expiration Date Visits Re quested Visits Authorized [id number] Closed 05/23/2025 08/22/2026 1 1 Reason for Visit * Diagnostic Imaging (Routine) - Closed Specialty Diagnoses / Procedures Referred By Contac t Referred To Contact Radiology Diagnoses Bicornuate uterus Procedures [facility] Diagnostic [place] Sarah George MD [address] [address] Phone: tel: fax: [facility] [address] [place] [address] Phone: tel: Referral ID Status Reason Start Date Expiration Date Visits Re quested Visits Authorized [id number] Closed 05/23/2025 08/22/2026 1 1 Encounter Details Date Type Department Care Team (Late st Contact Info) Description 06/27/2025 11:01 AM EDT - 06/27/2025 11:59 PM EDT Hospital Encounter [facility] PER [facility]AG CTR [address] [place] [address] Sarah George [facility] [facility] [address] [place] [address] Bicornuate uterus Discharge Disposition: Home [...] Description 08/09/2025 10:00 AM EDT Office Visit [facility] CARDIOLOGY [address] [place] [address] Franchesca Sullivan, SOFTWARE ASSET MANAGEMENT ANALYST [address] [place] [address] 08/19/2025 8:45 AM EDT Office Visit [facility] PRIMARY CARE [address] [place] [address] Mingo Limon MD [address] [place] [address] 08/23/2025 7:30 AM EDT Office Visit [facility] [facility] [address] [address] [place] [address] 08/23/2025 7:30 AM EDT Appointment [facility] [address] [place] [address] documented as of this encounter Procedures Procedure Name Priority Date/Time Associated Diagnosis Comments [facility] Routine 06/27/2025 11:29 AM EDT Bicornuate uterus documented in this encounter Results * [facility] (06/27/2025 11:29 AM EDT) Anatomical Region Laterality Modality Ultrasound 06/27/2025 11:1 7 AM EDT Narrative 07/02/2025 8:14 PM EDT PAT NAME: KARMEN GU MED REC#: [id number] DA: [id number] PAT GEND: F PAT TYPE: O EXAM RO: [id number] REF PHYS MILTON PUENTES Comparison Studies The [...] EFW (oz) 12 oz EFW by: Hadlock ([id number]) Extended Cav. septi pel. tr 6.9 mm [...] Normal Heart / Thorax 3-vessel view: Normal 7-fxqrzc-bmgxtws view: normal Stomach: Appears normal Kidneys: Appears normal Bladder: Appears normal Gender: male Wants to know gender: yes Impression ========= Cephalic S=D Normal appearing limited anatomy Normal fluid Recommendation FOllow up 4 weeks Coding ====== Description: 56056-62 Follow Up Quantometer Operator: Myranda De La Torre RDMS Physician: Sarah George MD, FACOG Electronically signed by: Sarah George MD, FACOG at: 20:14 Procedure Note Sarah George MD - 07/02/2025 PAT NAME: KARMEN GU MED REC#: [id number] DA: [id number] PAT GEND: F PAT TYPE: O EXAM RO: [id number] REF PHYS MILTON PUENTES Comparison Studies The findings of this study are compared to the prior ultrasound studydated 05/23/25 Patient Status Outpatient Indication ======== Gestational diabetes. Hx PPROM and PTD 32 wk. Morbid obesity BMI 40. Maternal Assessment Bzmcyt357 cm Height (ft)4 ft Height (in)9 in Kjrwva50 kg Weight (lb)188 lb BMI40.01 kg/m Method ======= Transabdominal ultrasound examination. View: Adequate view ========= Rasmussen . Number of fetuses: 1 Dating ====== Method of dating:based on stated CHANTE GA by prior [id number] w + 1 d CHANTE by prior [...] Hadlock Femur51.4 mm 27w 3d 18% Hadlock Llmmpbh80.3 mm 27w 6d 34% Yocasta HC / AC1.14 EFW1,245 g 28w 1d 53% Hadlock EFW (lb)2 lb EFW (oz)12 oz EFW by:Hadlock ([id number]-[id number]-FL) Extended Cav. septi pel. tr6.9 mm CM8.0 mm 82% Nicolaides Head / Face / Neck Cephalic index0.75 11% Nicolaides Extremities / Bony Struc FL / BPD0.69 FL / HC0.18 FL / AC0.21 Other Structures FYH360 bpm General Evaluation Cardiac activity present. FHR [...] LVOT view:Normal Heart / Thorax 3-vessel view:Normal 0-tdstmd-vamqdmy view:normal Stomach:Appears normal Kidneys:Appears normal Bladder:Appears normal Gender:male Wants to know gender:yes Impression ========= Cephalic S=D Normal appearing limited anatomy Normal fluid Recommendation FOllow up 4 weeks Coding ====== Description:95695-52 Follow Up Quantometer Operator: Myranda De La Torre RDMS Physician: Sarah George MD, FACOG Electronically signed by: Sarah George MD, FACOG at: 20:14 us Sarah George MD IMG US ORDERABLES Final Result documented in this encounter Visit Diagnoses Diagnosis Bicornuate uterus documented in this encounter Care Teams Silk Winding Machine Operator Relationship Specialty Start Date End Date Mingo Limon MD [address] [place] [address] [place] [address] PCP - General Internal Medicine 07/30/22 documented as of this encounter
--- OUTSIDE RECORDS SUMMARY | 2025-06-27 11:15 | XMS_ITS | Encounter Summary ---
Author Organization [facility] Address [address] [place] [address] Care Team Providers Care Clinical Education Consultant Name Role Phone Mingo Limon MD Primary Care Provider [phone] Reason for Referral * Diagnostic Imaging (Routine) - Closed Specialty Diagnoses / Procedures Referred By Arlethac t Referred To Contact Radiology Diagnoses Bicornuate uterus Diet controlled gestational diabetes mellitus (GDM) in third trimester Procedures [facility] Sarah George MD [address] [facility] [address] [place] [address] Phone: tel: fax: [facility] PER DIAG CTR [address] [place] [address] Phone: tel: Referral ID Status Reason Start Date Expiration Date Visits Re quested Visits Authorized [id number] Closed 07/02/2025 10/01/2026 1 1 Reason for Visit * Reason Comments GDM, bicornate ut, hx 32 wk PTD, MO Encounter Details Date Type Department Care Team (Late st Contact Info) Description 06/27/2025 11:15 AM EDT Office Visit [facility] MATERNAL MEDICINE [address] [facility] [address] [place] [address] Sarah George MD [address] [facility] [address] [place] [address] Bicornuate uterus (Primary Dx); Diet controlled gestational [...] under imaging tab of patient chart in [facility] (Viewpoint report). Sarah George MD documented in this encounter Plan of Treatment Upcoming Encounters Date Type Department Care Team (Late st Contact Info) Description 08/09/2025 10:00 AM EDT Office Visit [facility] CARDIOLOGY [address] [place] [address] Franchesca Sullivan, MEDICINAL CHEMIST [address] [place] [address] 08/19/2025 8:45 AM EDT Office Visit [facility] PRIMARY CARE [address] [place] [address] [place] [address] Mingo Limon MD [address] [place] [address] [place] [address] 08/23/2025 7:30 AM EDT Office Visit [facility] MATERNAL MEDICINE [address] [place] [address] 08/23/2025 7:30 AM EDT Appointment [facility] US PER DIAG CTR [address] [place] [address] documented as of this encounter Results * [facility] (07/26/2025 8:11 AM EDT) Anatomical Region Laterality Modality Ultrasound 07/26/2025 7:44 AM EDT Narrative 07/26/2025 8:29 AM EDT PAT NAME: KARMEN GU MED REC#: [id number] DA: 2000 PAT GEND: F PAT TYPE: O EXAM RO: [id number] REF PHYS MILTON PUENTES Comparison Studies The [...] EFW (oz) 5 oz EFW by: Hadlock ([id number]-LN-IU-FL) Extended Cav. septi pel. tr 7.7 mm [...] Normal Heart / Thorax 3-vessel view: Normal 4-vimnvo-rbynjcw view: normal Cord insertion: Normal Stomach: Appears [...] Follow-up as clinically indicated. Coding ======= Description: 59483-13 Follow Up Ultrasound Description: 97425-11 BPP without NST Jewel Hole Driller: Radha Matson RDMS Physician: Juan Miguel Marie MD, FACOG Electronically signed by: Juan Miguel Marie MD, FACOG at: 08:29 Procedure Note Juan Miguel Marie MD - 07/26/2025 PAT NAME: KARMEN GU MED REC#: [id number] DA: 2000 PAT GEND: F PAT TYPE: O EXAM RO: [id number] REF PHYS DHAVAL MILTON Comparison Studies The findings of this study are compared to the prior ultrasound studydated 06/27/25 Patient Status Outpatient Indication ======== Gestational diabetes. Hx PPROM and PTD 32 wk. Morbid obesity BMI 40. Maternal Assessment Evopwj535 cm Height (ft)4 ft Height (in)9 in Zjtjjd39 kg Weight (lb)190 lb BMI40.35 kg/m Method ======= Transabdominal ultrasound examination ========= Rasmussen . Number of fetuses: 1 Dating ====== GA by prior [id number] w + 2 d CHANTE by prior [...] GA32 w + 2 d Assigned CHANTE:09/18/2025 [id number] d Biometry Standard BPD84.9 mm 34w 1d 90% Hadlock VXZ763.0 mm 38w 4d >99% Yocasta HC320.2 mm 36w 1d 96% Hadlock Cerebellum tr45.0 mm 34w 4d 91% Hill AC277.3 mm 31w 6d 34% Hadlock Femur60.9 mm 31w 4d 21% Hadlock HC / AC1.15 EFW1,957 g 32w 0d 42% Hadlock EFW (lb)4 lb EFW (oz)5 oz EFW by:Hadlock (BEF-LK-SN-FL) Extended Cav. septi pel. tr7.7 mm CM5.1 mm 5% Nicolaides Head / Face / Neck Cephalic index0.75 9% Nicolaides Extremities / Bony Struc FL / BPD0.72 FL / HC0.19 FL / AC0.22 Other Structures [id number] bpm General Evaluation Cardiac activity present. FHR [...] LVOT view:Normal Heart / Thorax 3-vessel view:Normal 5-hfualb-lsimgst view:normal Cord insertion:Normal Stomach:Appears normal Kidneys:Appears normal Bladder:Appears normal Gender:male Wants to know gender:yes Maternal Structures Uterus / Cervix Cervical gswnqi47.9 mm Doppler Arterial Umbilical A PI1.05 77% [...] Recommendation Follow-up as clinically indicated. Coding ======= Description:12178-41 Follow Up Ultrasound Description:76466-14 BPP without NST Jewel Hole Driller: Radha Matson RDMS Physician: Juan Miguel Marie [...] trimester documented in this encounter Care Teams Clinical Education Consultant Relationship Specialty Start Date End Date Mingo Limon MD [address] [place] [address] [place] [address] PCP - General Internal Medicine 07/30/22 documented as of this encounter
--- OUTSIDE RECORDS SUMMARY | 2025-07-01 11:45 | XMS_ITS | Encounter Summary ---
Author Organization [facility] Address [address] [place] [address] Care Team Providers Care Treating Engineer Helper Name Role Phone Mingo Limon MD Primary Care Provider [phone] Encounter Details Date Type Department Care Team (Latest Contact Info) Description 07/01/2025 11:45 AM EDT - 07/01/2025 11:59 PM EDT Hospital Encounter [facility] DIABETES ED [address] [facility] [address] [place] [address] Discharge Disposition: Home or Self Care Social [...] 180 tablet 1 06/13/2025 Continuous Glucose Sensor (Cogheadcom G7 Sensor) [facility] USE As directed EVERY 10 DAYS 06/26/2025 [...] as of this encounter Consult Notes * Yelena De La Paz, RN - 07/01/2025 11:45 AM EDT Diabetes Education Patient Name: Karmen Gu Date of : 2000 Admit Date: 07/01/2025 Patient attended the scheduled 30 min gestational diabetes education follow-up via telephone today.Please see media tab for assessment and notes if you use [email or web address]. If you are not an [employer] user a copy of patient's assessment and notes will be sent per routine. Thank you. Electronically signed by: Yelena De La Paz RN, [facility] 07/01/25 12:42 EDT documented in this encounter Plan of Treatment Upcoming Encounters Date Type Department Care Team (Late st Contact Info) Description 08/09/2025 10:00 AM EDT Office Visit [facility] CARDIOLOGY [address] [address] SeFranchesca he, MILK TESTER [address] [place] [address] 08/19/2025 8:45 AM EDT Office Visit [facility] PRIMARY CARE [address] [place] [address] Mingo Limon MD [address] [place] [address] [place] [address] 08/23/2025 7:30 AM EDT Office Visit [facility] MATERNAL MEDICINE [address] [place] [address] 08/23/2025 7:30 AM EDT Appointment [facility] US PER DIAG CTR [address] [place] [address] documented as of this encounter Visit Diagnoses Not on filedocumented in this encounter Care Teams Treating Engineer Helper Relationship Specialty Start Date End Date Mingo Limon MD [address] [place] [address] PCP - General Internal Medicine 07/30/22 documented as of this encounter
--- OUTSIDE RECORDS SUMMARY | 2025-07-26 07:27 | XMS_ITS | Encounter Summary ---
Author Organization [facility] Address [address] [place] [address] Care Team Providers Care Asbestos Cloth Inspector Name Role Phone Mingo Limon MD Primary Care Provider [phone] Reason for Referral * Diagnostic Imaging (Routine) - Closed Specialty Diagnoses / Procedures Referred By Hansel Referred To Contact Radiology Diagnoses Bicornuate uterus Diet controlled gestational diabetes mellitus (GDM) in third trimester Procedures [facility] Sarah George MD [address] [address] Phone: tel: fax: [facility] [address] [place] [address] Phone: tel: Referral ID Status Reason Start Date Expiration Date Visits Re quested Visits Authorized Closed 07/02/2025 10/01/2026 1 1 Reason for Visit * Diagnostic Imaging (Routine) - Closed Specialty Diagnoses / Procedures Referred By Contac Referred To Contact Radiology Diagnoses Bicornuate uterus Diet controlled gestational diabetes mellitus (GDM) in third trimester Procedures [facility] Sarah George MD 1700 [facility] [address] [place] [address] Phone: tel: fax: [facility] PER DIAG CTR [address] [place] [address] Phone: tel: Referral ID Status Reason Start Date Expiration Date Visits Re quested Visits Authorized [id number] Closed 07/02/2025 10/01/2026 1 1 Encounter Details Date Type Department Care Team (Late st Contact Info) Description 07/26/2025 7:27 AM EDT - 07/26/2025 11:59 PM EDT Hospital Encounter [facility] PER DIAG CTR [address] [place] [address] Sarah George MD [facility] [facility] [address] [address] [place] [address] Bicornuate uterus; Diet controlled gestational [...] provider Daily. 15.8 mL 3 03/01/2024 Insulin Pen Needle (Pen [place]) 31G X 5 MM misc Use 1 [...] tablet Take 1 tablet by mouth Daily. Insulin Glargine (LANTUS SOLOSTAR) 100 UNIT/ML injection [...] minutes before each meal. 15 mL 07/24/2025 5 documented as of this encounter Plan of Treatment Upcoming Encounters Date Type Department Care Team (Late st Contact Info) Description 08/09/2025 10:00 AM EDT Office Visit [facility] CARDIOLOGY [address] [place] [address] Franchesca Sullivan, BRASS PLATER [address] [place] [address] 08/19/2025 8:45 AM EDT Office Visit [facility] PRIMARY CARE [address] [place] [address] [place] [phone] Mingo Limon MD [address] [place] [address] [place] [address] 08/23/2025 7:30 AM EDT Office Visit [facility] MATERNAL MEDICINE [address] [place] [address] 08/23/2025 7:30 AM EDT [facility]ointment [facility] [address] [place] [phone] documented as of this encounter Procedures Procedure Name Priority Date/Time Associated Diagnosis Comments [facility] Routine 07/26/2025 8:11 AM EDT Bicornuate uterus Diet controlled gestational diabetes mellitus (GDM) in third trimester documented in this encounter Results * [facility] (07/26/2025 8:11 AM EDT) Anatomical Region Laterality Modality Ultrasound 07/26/2025 7:44 AM EDT Narrative 07/26/2025 8:29 AM EDT PAT NAME: KARMEN GU MED REC#: [id number] DA: 2000 PAT GEND: F PAT TYPE: O EXAM RO: [id number] REF PHYS MILTON PUENTES Comparison Studies The [...] EFW (oz) 5 oz EFW by: Hadlock ([id number]) Extended Cav. septi pel. tr 7.7 mm [...] Normal Heart / Thorax 3-vessel view: Normal 7-waqvmq-ayarqop view: normal Cord insertion: Normal Stomach: Appears [...] Follow-up as clinically indicated. Coding ======= Description: 02841-32 Follow Up Ultrasound Description: 78689-30 BPP without NST Demurrage Agent: Radha Matson RDMS Physician: Juan Miguel Marie MD, FACOG Electronically signed by: Juan Miguel Marie MD, FACOG at: 08:29 Procedure Note Juan Miguel Marie MD - 07/26/2025 PAT NAME: KARMEN GU MED REC#: [id number] DA: [id number] PAT GEND: F PAT TYPE: O EXAM RO: [id number] REF PHYS [place] PUENTES Comparison Studies The findings of this study are compared to the prior ultrasound studydated 06/27/25 Patient Status Outpatient Indication ======== Gestational diabetes. Hx PPROM and PTD 32 wk. Morbid obesity BMI 40. Maternal Assessment Cypwnq518 cm Height (ft)4 ft Height (in)9 in Fgylxj38 kg Weight (lb)190 lb BMI40.35 kg/m Method ======= Transabdominal ultrasound examination ========= Rasmussen . Number of fetuses: 1 Dating ====== GA by prior [id number] w + 2 d CHANTE by prior [...] Standard BPD84.9 mm 34w 1d 90% Hadlock CRT288.0 mm 38w 4d >99% Yocasta HC320.2 mm 36w 1d 96% Hadlock Cerebellum tr45.0 mm 34w 4d 91% Hill AC277.3 mm 31w 6d 34% Hadlock Femur60.9 mm 31w 4d 21% Hadlock HC / AC1.15 EFW1,957 g 32w 0d 42% Hadlock EFW (lb)4 lb EFW (oz)5 oz EFW by:Hadlock ([id number]) Extended Cav. septi pel. tr7.7 mm CM5.1 mm 5% Nicolaides Head / Face / Neck Cephalic index0.75 9% Nicolaides Extremities / Bony Struc FL / BPD0.72 FL / HC0.19 FL / AC0.22 Other Structures SYS294 bpm General Evaluation Cardiac activity present. FHR [...] LVOT view:Normal Heart / Thorax 3-vessel view:Normal 6-outrkd-molouft view:normal Cord insertion:Normal Stomach:Appears normal Kidneys:Appears normal [...] Recommendation Follow-up as clinically indicated. Coding ======= Description:49746-05 Follow Up Ultrasound Description:05462-13 BPP without NST Demurrage Agent: Radha Matson RDMS Physician: Juan Miguel Marie MD, FACOG Electronically signed by: Juan Miguel Marie MD, FACOG at: 08:29 us Sarah George MD IMG US ORDERABLES Final Result documented in this encounter Visit Diagnoses Diagnosis Bicornuate uterus Diet controlled gestational diabetes mellitus (GDM) in third trimester documented in this encounter Care Teams Asbestos Cloth Inspector Relationship Specialty Start Date End Date Mingo Limon MD [address] [place] [address] [place] [address] PCP - General Internal Medicine 07/30/22 documented as of this encounter
--- OUTSIDE RECORDS SUMMARY | 2025-07-26 07:30 | XMS_ITS | Encounter Summary ---
Author Organization [facility] Address [address] [place] [address] Care Team Providers Care Steam Shovel Operating Engineer Name Role Phone Mingo Limon MD Primary Care Provider [phone] Reason for Referral * Diagnostic Imaging (Routine) - Authorized Specialty Diagnoses / Procedures Referred By Contac t Referred To Contact Radiology Diagnoses Insulin controlled gestational diabetes mellitus (GDM) in third trimester Procedures [facility] Juan Miguel Marie MD [address] [place] [address] Phone: tel: fax: Referral ID Status Reason Start Date Expiration Date V isits Requested Visits Authorized [id number] Authorized 07/26/2025 10/25/2026 1 1 Reason for Visit * Reason Comments GDM, hx PTD @ 32 wks Encounter Details Date Type Department Care Team (Late st Contact Info) Description 07/26/2025 7:30 AM EDT Office Visit [facility] [address] [facility] [address] [place] [phone] Juan Miguel Marie MD [address] [place] [address] Insulin controlled gestational diabetes mellitus (GDM) in third trimester (Primary Dx) Social History Tobacco Use Types [...] Sign Reading Time Taken Comments Blood Pressure 108/67 07/26/2025 7:38 AM EDT Pulse - - Temperature - - Respiratory Rate - - Oxygen Saturation - - Inhaled Oxygen Concentration - - Weight 86.2 kg (190 lb) 07/26/2025 7:38 AM EDT Height - - Body Mass Index 39.72 06/13/2025 12:55 PM EDT documented in this encounter Progress Notes * Juan Miguel Marie MD - 07/26/2025 7:50 AM EDTAssociated Problem(s): Insulin controlled gestational diabetes mellitus (GDM) in third trimester Patient presents for follow-up growth ultrasound secondary to gestational diabetes requiring insulin. Blood glucoses were reviewed this week with plan to increase Lantus from 10 units to 12 units andplan to increase lispro from 7 units to 8 units. Today's ultrasound shows normal growth and normal amniotic fluid. Plan for follow-up in 4 weeks. * Marlena Hagan RN - 07/26/2025 7:30 AM EDT Denies vaginal bleeding, leaking fluid, and contractions. Endorses normal movement. NIPT negative. Next OB follow-up appointment with Dr. Ponce on 07/30/2025. * Juan Miguel Marie MD - 07/26/2025 7:30 AM EDT Maternal/ Medicine Consult Note Date: 07/26/2025 Name: Karmen Gu : 2000 Referring Provider: Emanuel Ponce MD Chief Complaint GDM, hx PTD @ 32 wks Subjective History of Present Illness: Karmen Gu is a 25 y.o. 32w2d who presents today for gestation diabetes CHANTE: Estimated Date of Delivery: 09/18/25 ROS: Otherwise Noted in HPI Current Outpatient Medications: albuterol sulfate HFA 108 [...] a Day., Disp: 180 tablet, Rfl: 1 calcium carbonate (TUMS) 500 MG chewable tablet, Chew 1 tablet As Needed for Indigestion or Heartburn., Disp: , Rfl: Concerta 36 MG CR tablet, TAKE ONE TABLET BY MOUTH EVERY MORNING, Disp: 30 tablet, Rfl: 0 Continuous Glucose Sensor (Dexcom G7 Sensor) [facility] [place], USE As directed EVERY 10 DAYS, Disp: , Rfl: escitalopram (LEXAPRO) 20 MG tablet, Take 1 tablet by mouth Daily., Disp: 90 tablet, Rfl: 1 fluticasone (FLONASE) 50 MCG/ACT nasal spray, 2 sprays into the nostril(s) as directed by provider Daily., Disp: 15.8 mL, Rfl: 3 Insulin Glargine (LANTUS SOLOSTAR) 100 UNIT/ML injection pen, Inject 12 Units under the skin into the appropriate area as directed Daily., Disp: 15 mL, Rfl: 1 Insulin Lispro, 1 Unit Dial, (HumaLOG KwikPen) 100 UNIT/ML solution pen- injector, Inject 8 Units under the skin into the appropriate area as directed 3 (Three) Times a Day With Meals. Please take 15 minutes before each meal., Disp: 15 mL, Rfl: 0 labetalol (NORMODYNE) 200 MG tablet, Take 1 tablet by mouth 2 (Two) Times a Day., Disp: 60 tablet, Rfl: 6 methylphenidate (RITALIN) 5 MG tablet, 1 tablet orally at noon, Disp: 30 tablet, Rfl: 0 montelukast (Singulair) 10 MG tablet, Take 1 tablet by mouth Every Night. (Patient taking differently: Take 1 tablet by mouth As Needed.), Disp: 30 tablet, Rfl: 3 omeprazole (priLOSEC) 20 MG capsule, Take 1 capsule by mouth Every Night. Before dinner, Disp: , Rfl: Vit-Fe Fumarate-FA ( vitamin 27-0.8) 27-0.8 MG tablet tablet, Take 1 tablet by mouth Daily., Disp: , Rfl: Insulin Pen Needle (Pen [place]) 31G X 5 MM misc, Use 1 each 4 (Four) Times a Day., Disp: 100 each,Rfl: 2 Objective Vital Signs BP 108/67 Wt 86.2 kg (190 lb) LMP 10/18/2024 (Exact Date) Estimated body mass index is 39.72 kg/m?? as calculated from the following: Height as of 06/13/25: 147.3 cm (57.99 ). Weight as of this encounter: 86.2 kg (190 lb). Ultrasound Impression: See Viewpoint Assessment and Plan Karmen Gu is a 25 y.o. 32w2d who presents today for gestational diabetes Diagnoses and all orders for this visit: 1. Insulin controlled gestational diabetes mellitus (GDM) in third trimester (Primary) Assessment & Plan: Patient presents for follow-up growth ultrasound secondary to gestational diabetes requiring insulin. Blood glucoses were reviewed this week with plan to increase Lantus from 10 units to 12 units andplan to increase lispro from 7 units to 8 units. Today's ultrasound shows normal growth and normal amniotic fluid. Plan for follow-up in 4 weeks. Orders: - [facility] [place]; Future Follow Up 4-week I spent 10 minutes caring for the patient on the day of service. This included: obtaining or reviewing a separately obtained medical history, reviewing patient records, performing a medically appropriate exam and/or evaluation, counseling or educating the patient/family/caregiver, ordering medications, labs, and/or procedures and documenting such in the medical record. This does not include time spent on review and interpretation of other tests such as ultrasound or the performance of other procedures such as amniocentesis or CVS. Juan Miguel Marie MD, FACOG Maternal Medicine, [facility] documented in this encounter Plan of Treatment Upcoming Encounters Date Type Department Care Team (Late st Contact Info) Description 08/09/2025 10:00 AM EDT Office Visit [facility] CARDIOLOGY [address] [place] [phone] Franchesca Sullivan, NIRAV [address] [place] [address] 08/19/2025 8:45 AM EDT Office Visit [facility] PRIMARY CARE [address] [place] [address] [place] [phone] Mingo Limon MD [address] [place] [address] [place] [address] 08/23/2025 7:30 AM EDT Office Visit [facility] MATERNAL MEDICINE [address] [place] [address] 08/23/2025 7:30 AM EDT Appointment [facility] US PER DIAG CTR [address] [place] [address] Scheduled Orders Name Type Priority Associated Diagnoses Orde r Schedule [facility] Imaging Routine Insulin controlled gestational diabetes mellitus (GDM) in third trimester Expected: 07/31/2025 (Approximate), Expires: 07/26/2026 documented as of this encounter Visit Diagnoses Diagnosis Insulin controlled gestational diabetes mellitus (GDM) in third trimester- Primary documented in this encounter Care Teams Steam Shovel Operating Engineer Relationship Specialty Start Date End Date Mingo Limon MD [address] [place] [address] PCP - General Internal Medicine 07/30/22 documented as of this encounter
[2025-08-03] VITALS (7 sets, daily range): BP systolic 114–126; BP diastolic 71–86; PULSE 103–121; RESP 18–19; TEMP 36.8; O2SAT 96–98; BMI 38.3
--- OUTSIDE RECORDS SUMMARY | 2025-08-03 08:51 | XMS_ITS | Encounter Summary ---
Author Organization [facility] Address [address] [place] [address] Care Team Providers Care Chief Crna Name Role Phone Mingo Limon MD Primary Care Provider [phone] Encounter Details Date Type Department Care Team (Late st Contact Info) Description 07/03/2025 Medication Therapy Management [facility] MATERNAL MEDICINE [address] [place] [place] [phone] Daija Murray MD [address] [place] [address] Social History Tobacco Use Types Packs/Day Years [...] Visit [facility] CARDIOLOGY [address] [place] [address] Franchesca Sullivan, SURFBOARD DESIGNER [address] [place] [address] [place] [address] 08/19/2025 8:45 AM EDT Office Visit [facility] PRIMARY CARE [address] [place] [address] [place] [address] Mingo Limon MD [address] [place] [address] [place] [address] 08/23/2025 7:30 AM EDT Office Visit [facility] MATERNAL MEDICINE [address] [facility] [address] [place] [address] 08/23/2025 7:30 AM EDT Appointment [facility] PER DIAG CTR [address] [place] [address] documented as of this encounter Visit Diagnoses Not on filedocumented in this encounter Care Teams Chief Crna Relationship Specialty Start Date End Date Mingo Limon MD [address] [place] [address] [place] [address] PCP - General Internal Medicine 07/30/22 documented as of this encounter
--- OUTSIDE RECORDS SUMMARY | 2025-08-03 08:51 | XMS_ITS | Clinical Summary ---
Author Organization Healthcare Address [address] [place] [address] Care Team Providers Care Home Health Clinician Name Role Phone Pcp, No Primary Care [...] drink first t elyssa in the morning (EYE-SENIOR WEB ENGINEER) to steady your nerves or to [...] [facility]-Adult SDOH Screenings 2020 [facility]-Pap Smear 2023 [id number] Vaccine ( season) 2025 10/12/2021, 04/01/2021, 03/04/2021 [...] require contact precautions indefinitely. 05/07/2023 05/07/2023 Insurance [facility] Advance Directives * Full Code (Latest Code Status on File) Date Activated Date Inactivated Comments 05/03/2023 8:40 AM 05/09/2023 7:09 PM Question Answer Comments Patient has decision-making capacity? Yes Care Teams Home Health Clinician Relationship Specialty Start Date End Date Pcp, No [address] [place] [address] PCP - General Family Medicine 05/02/23
--- OUTSIDE RECORDS SUMMARY | 2025-08-03 08:51 | XMS_ITS | Encounter Summary ---
Author Organization [facility] Address [address] [place] [address] Care Team Providers Care News Photographer Name Role Phone Mingo Limon MD Primary Care Provider [phone] Encounter Details Date Type Department Care Team [...] Description 08/09/2025 10:00 AM EDT Office Visit [facility] CARDIOLOGY [address] [place] [address] Franchesca Sullivan W, ELEVATOR STARTER [address] [place] [address] 08/19/2025 8:45 AM EDT Office Visit [facility] PRIMARY CARE [address] [place] [phone] Mingo Limon MD [address] [place] [address] 08/23/2025 7:30 AM EDT Office Visit [facility] MATERNAL MEDICINE [address] [place] [address] 08/23/2025 7:30 AM EDT Appointment [facility] US PER DIAG CTR [address] [place] [address] documented as of this encounter Visit Diagnoses Not on filedocumented in this encounter Care Teams News Photographer Relationship Specialty Start Date End Date Mingo Limon MD [address] [place] [address] PCP - General Internal Medicine 07/30/22 documented as of this encounter
--- OUTSIDE RECORDS SUMMARY | 2025-08-03 08:51 | XMS_ITS | Clinical Summary ---
[facility] Address [address] [place] [address] Care Team Providers Care Supervisor Pile Driving Name Role Phone Mingo Limon MD Primary Care Provider [phone] Allergies No known active allergies Medications fluticasone [...] 06/26/20 25 Active Insulin Pen Needle (Pen [place]) 31G X 5 MM misc Use 1 each 4 (Four) Times a Day. 100 each 2 07/03/20 25 Active Concerta 36 MG CR tabletIndication s:ADHD, predominantly inattentive type TAKE ONE TABLET BY MOUTH EVERY MORNING 30 tablet 07/22/20 25 Active omeprazole (priLOSEC) 20 MG capsule Take 1 capsule by mouth Every Night. Before dinner Active calcium carbonate (TUMS) 500 MG chewable tablet Chew 1 tablet As Needed for Indigestion or Heartburn. Active Insulin Lispro, 1 Unit Dial, (HumaLOG KwikPen) 100 UNIT/ML solution pen-injector Inject 9 Units under the skin into the appropriate area as directed 3 (Three) Times a Day With Meals. Please take 15 -30 minutes before each meal. 15 mL 08/01/20 25 Active Insulin Glargine (LANTUS SOLOSTAR) 100 UNIT/ML injection pen Inject 14 Units under the skin into the appropriate area as directed Daily. 15 mL 1 08/01/20 25 Active methylphenidate 36 MG CR tabletIndication [...] meal. 15 mL 07/17/20 25 2024 Discontinued Insulin Glargine (LANTUS SOLOSTAR) 100 UNIT/ML injection pen Inject 12 Units under the skin into the appropriate area as directed Daily. 15 mL 1 07/24/20 25 2024 Discontinued Insulin Lispro, 1 Unit Dial, (HumaLOG KwikPen) 100 UNIT/ML solution pen-injector Inject 8 Units under the skin into the appropriate area as directed 3 (Three) Times a Day With Meals. Please take 15 minutes before each meal. 15 mL 07/24/20 25 2024 Discontinued Active Problems Problem Noted [...] that on Tuesday she bent over to picker her child and her heart rate [...] need to switch to labetalol per her COUTURE ALTERATIONS DRESSMAKER Dr. Kimbrough at [facility]. Patient has been instructed to start out [...] better on regimen medicine. Keep follow-up with [facility] cardiology. Assessment & Plan (06/14/2024 4:33 PM [...] a bit of a dizzy sensation with [place]-Hallpike maneuver to the left she did not [...] 1 week's time we will recheck the [place]-Hallpike maneuver to see if there is any [...] Patient previously been using NuvaRing through her formula maker, but has interested in switching over [...] to treatment she could discuss with her OB/formula maker currently with concern, about next treatment [...] , and recent testing through [facility] Abraham drafter engineering reveals what appears to be a failed 1 hour 2-hour and 3-hour glucose challenge test, as such it appears she is progressing to a similar pattern. No current medications at this time but keep regular follow-up with drafter engineering. 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 Santos, drafter engineering and [facility]. Plan in place with potential complications of transition to [facility] if she delivers earlier has significant complication [...] diabetes mellitus. Nonetheless keep regular follow-up with OB/formula maker who has placed her on glipizide [...] with stability prefer to continue as per drafter engineering. Of note we had transiently held ADHD [...] diagnosis by review of her history, with [place] forms showing the same. No comorbid sleep [...] with stability prefer to continue as per drafter engineering. Of note we had transiently held ADHD [...] diagnosis by review of her history, with [place] forms showing the same. No comorbid sleep [...] diagnosis by review of her history, with [place] forms showing the same. No comorbid sleep [...] diagnosis by review of her history, with [place] forms showing the same. No comorbid sleep [...] diagnosis by review of her history, with [place] forms showing the same. 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 Reinforced healthy diet, good activity level is [...] Encounters Date Type Department Care Team Description 08/01/2025 Medication Therapy Management [facility] [address] [address] Daija Murray MD 07/26/2025 7:30 AM EDT Office Visit [facility] [address] [address] Juan Miguel Marie MD Insulin controlled gestational diabetes mellitus (GDM) in third trimester (Primary Dx) 07/26/2025 7:27 AM EDT - 07/26/2025 11:59 PM EDT Hospital Encounter [facility] US PER DIAG CTR [address] [place] [address] Sarah George MD Bicornuate uterus; Diet controlled gestational diabetes mellitus (GDM) in third trimester Discharge Disposition: Home or Self Care 07/26/2025 Travel 07/24/2025 Medication Therapy Management [facility] [address] [place] [address] Daija Murray MD 07/20/2025 Refill [facility] PRIMARY CARE [address] [place] [address] [place] [address] Mingo Limon MD ADHD, predominantly inattentive type 07/17/2025 Medication Therapy Management [facility] [address] [place] [address] Daija Murray MD 07/16/2025 Education [facility] DIABETES ED [address] [facility] [address] [place] [phone] Yelena De La Paz RN 07/11/2025 Medication Therapy Management [facility] [address] [place] [address] Daija Murray MD 07/03/2025 Medication Therapy Management [facility] [address] [facility] [address] [place] [address] Daija Murray MD 07/03/2025 Telephone [facility] [address] [facility] [address] [place] [address] Vira Paniagua quality control lab technician Only 07/01/2025 11:45 AM EDT - 07/01/2025 11:59 PM EDT Hospital Encounter [facility] DIABETES ED [address] [place] [address] Discharge Disposition: Home or Self Care 07/01/2025 Travel 06/27/2025 11:15 AM EDT Office Visit [facility] [address] [facility] [address] [place] [phone] Sarah George MD Bicornuate uterus (Primary Dx); Diet controlled gestational diabetes mellitus (GDM) in third trimester 06/27/2025 11:01 AM EDT - 06/27/2025 11:59 PM EDT Hospital Encounter [facility] US PER DIAG CTR [address] [place] [address] Sarah George MD Bicornuate uterus Discharge Disposition: Home or Self Care 06/27/2025 Documentation [facility] [address] [facility] [address] [place] [address] Vira Paniagua RN 06/27/2025 Travel 06/24/2025 12:49 PM EDT - 06/24/2025 11:59 PM EDT Hospital Encounter [facility] DIABETES ED [address] [facility] [address] [place] [address] Juan Miguel Marie MD Discharge Disposition: Home or Self Care 06/24/2025 Travel 06/13/2025 1:00 PM EDT Office Visit [facility] [address] [place] [address] [place] [address] Mingo Limon MD ADHD, predominantly inattentive type (Primary Dx); Anxiety and depression; Gestational diabetes mellitus (GDM) in second trimester controlled on oral hypoglycemic drug; Mixed hyperlipidemia; Palpitations 06/13/2025 Travel 05/27/2025 Refill [facility] [address] [place] [address] [place] [address] Mingo Limon MD ADHD, predominantly inattentive type 05/23/2025 10:30 AM EDT Office Visit [facility] [address] [place] [address] Sarah George MD Bicornuate uterus (Primary Dx) 05/23/2025 10:06 AM EDT - 05/23/2025 11:59 PM EDT Hospital Encounter [facility] US PER DIAG CTR [address] [place] [phone] Milton Puentes MD 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, antepartum; History of delivery, currently ; Tachycardia; History of gestational diabetes in prior , currently ; , unspecified gestational age; Encounter for repeat ultrasound of pyelectasis, antepartum, not applicable or unspecified fetus Discharge Disposition: Home or Self Care 05/23/2025 Travel 05/16/2025 Telephone [facility] [address] [place] [address] Franchesca Sullivan APRN 05/13/2025 Results Follow-Up [facility] [address] [place] [address] [place] [address] Mingo Limon MD 05/10/2025 1:15 PM EDT Office Visit [facility] [address] [place] [address] [place] [address] Mingo Limon MD Acute cystitis without hematuria (Primary Dx); ADHD, predominantly inattentive type; Anxiety and depression 05/10/2025 12:30 PM EDT Office Visit [facility] [address] [place] [address] Franchesca Sullivan APRN Palpitations (Primary Dx); Tachycardia 05/10/2025 Travel 05/08/2025 Telephone [facility] [address] [place] [address] Franchesca Sullivan APRN LORI SEIVERS-APOINTMENT from Last [...] Description 08/09/2025 10:00 AM EDT Office Visit [facility] [address] [place] [address] Franchesca Sullivan, REFRIGERATOR REPAIRMAN [address] [place] [address] 08/19/2025 8:45 AM EDT Office Visit [facility] [address] [place] [address] [place] [address] Mingo Limon MD [address] [place] [address] [place] [address] 08/23/2025 7:30 AM EDT Office Visit [facility] [address] [place] [address] 08/23/2025 7:30 AM EDT Appointment [facility] PER DIAG CTR [address] [place] [address] Health Maintenance Due Date Last [...] Date/Time Associated Diagnosis Comments SCANNED - LABS 07/30/2025 [facility] Routine 07/26/2025 8:11 AM EDT Bicornuate uterus Diet controlled gestational diabetes mellitus (GDM) in third trimester SCANNED - LABS 07/15/2025 SCANNED - LABS 07/15/2025 SCANNED - LABS 07/15/2025 [facility] Routine 06/27/2025 11:29 AM EDT Bicornuate uterus SCANNED - LABS 06/16/2025 SCANNED - IMAGING 06/16/2025 SCANNED - LABS 06/10/2025 [facility] Routine 05/23/2025 11:41 AM EDT Bicornuate [...] 1:38 PM EDT Acute cystitis without hematuria LIQUID-BASED PAP SMEAR WITH HPV GENOTYPING IF ASCUS, P&C LABS (GEENA,COR,MAD) Routine 08/27/2024 9:58 AM EDT Women's annual routine gynecological examination LIPID PANEL Routine 05/21/2024 12:34 PM EDT Encounter for general adult medical examination with abnormal findings from Last 3 Months or Most Recently Relevant to Health Maintenance Results * LABS SCANNED (07/30/2025) Only the most recent of6 resultswithin the time period is included. Mingo Limon MD LAB BLOOD ORDERABLES Final Resul t * [facility] (07/26/2025 8:11 AM EDT) Only the most recent of3 resultswithin the time period is included. Anatomical Region Laterality Modality Ultrasound 07/26/2025 7:44 AM EDT Narrative 07/26/2025 8:29 AM EDT PAT NAME: KARMEN BRAVO MED REC#: [id number] DA: 2000 PAT GEND: F PAT TYPE: O EXAM RO: [id number] REF PHYS MILTON PUENTES Comparison Studies The [...] EFW (oz) 5 oz EFW by: Hadlock ([id number]) Extended Cav. septi pel. tr 7.7 mm [...] Normal Heart / Thorax 3-vessel view: Normal 5-vozojw-deksnha view: normal Cord insertion: Normal Stomach: Appears [...] Follow-up as clinically indicated. Coding ======= Description: 46380-94 Follow Up Ultrasound Description: 46069-43 BPP without NST Personal Clothing Laundry Aide: Radha Matson RDMS Physician: Juan Miguel Marie MD, FACOG Electronically signed by: Juan Miguel Marie MD, FACOG at: 08:29 Procedure Note Juan Miguel Marie MD - 07/26/2025 PAT NAME: KARMEN BRAVO MED REC#: [id number] DA: 2000 PAT GEND: F PAT TYPE: O EXAM RO: [id number] REF PHYS MILTON PUENTES Comparison Studies The findings of this study are compared to the prior ultrasound studydated 06/27/25 Patient Status Outpatient Indication ======== Gestational diabetes. Hx PPROM and PTD 32 wk. Morbid obesity BMI 40. Maternal Assessment Objslw097 cm Height (ft)4 ft Height (in)9 in Ovjxij24 kg Weight (lb)190 lb BMI40.35 kg/m Method ======= Transabdominal ultrasound examination ========= Rasmussen . Number of fetuses: 1 Dating ====== GA by prior ibujjzcjwd53 w + 2 d CHANTE by prior [...] GA32 w + 2 d Assigned CHANTE:09/18/2025 [id number] d Biometry Standard BPD84.9 mm 34w 1d 90% Hadlock KKB541.0 mm 38w 4d >99% Yocasta HC320.2 mm 36w 1d 96% Hadlock Cerebellum tr45.0 mm 34w 4d 91% Hill AC277.3 mm 31w 6d 34% Hadlock Femur60.9 mm 31w 4d 21% Hadlock HC / AC1.15 EFW1,957 g 32w 0d 42% Hadlock EFW (lb)4 lb EFW (oz)5 oz EFW by:Hadlock ([id number]) Extended Cav. septi pel. tr7.7 mm CM5.1 mm 5% Nicolaides Head / Face / Neck Cephalic index0.75 9% Nicolaides Extremities / Bony Struc FL / BPD0.72 FL / HC0.19 FL / AC0.22 Other Structures XSO887 bpm General Evaluation Cardiac activity present. FHR [...] LVOT view:Normal Heart / Thorax 3-vessel view:Normal 1-vcyumf-mypizfq view:normal Cord insertion:Normal Stomach:Appears normal Kidneys:Appears normal Bladder:Appears normal Gender:male Wants to know gender:yes Maternal Structures Uterus / Cervix Cervical alzpiu24.9 mm Doppler Arterial Umbilical A PI1.05 77% [...] Recommendation Follow-up as clinically indicated. Coding ======= Description:68176-36 Follow Up Ultrasound Description:75148-86 BPP without NST Personal Clothing Laundry Aide: Radha Matson RDMS Physician: Juan Miguel Marie MD, FACOG Electronically signed by: Juan Miguel Marie MD, FACOG at: 08:29 us Sarah George MD IMG US ORDERABLES Final Result * IMAGING SCANNED (06/16/2025) Anatomical Region Laterality Modality Radiographic Aurelia ging [...] 1:49 PM EDT 05/10/2025 Comment:Urine Release to the medical center Narrative [facility] (AMBULAT[facility]) - 05/12/2025 6:37 AM EDT Performed at: [address] [place], [place] [id number] Heater [place]: Dagoberto Campbell PhD, Phone: [phone] Mingo Limon MD MICROBIOLOGY - GENERAL ORDERABLE S Final Result [facility] ([facility]BUL[facility]) [address] [place] [address], [place] [phone] [facility] [address] [place] [address], [place] [phone] * (ABNORMAL) POC Urinalysis Dipstick (05/10/2025 1:38 PM EDT) [facility] Color Dark Yellow Yellow, Straw, Dark Yellow, Char [facility] Clarity, UA Cloudy(A) Clear [facility] Glucose, UA Negative Negative mg/dL [facility] Bilirubin Negative Negative [facility] Ketones, UA Negative Negative [facility] Specific Schaller 1.010 1.005 - 1.030 [facility] Blood, UA Negative Negative [facility] pH, Urine 8.0 5.0 - 8.0 [facility] Protein, POC Negative Negative mg/dL [facility] Urobilinogen, UA Normal Normal, 0.2 E.U./dL [facility] Leukocytes Large (3+)(A) Negative [facility] Nitrite, UA Negative Negative [facility] Urine 05/10/2025 1:38 PM EDT Mingo Limon MD POINT OF CARE TEST ORDERABLES Fi nal Result [facility]
[address] [place] [id number], * LIQUID-BASED PAP SMEAR WITH HPV GENOTYPING IF ASCUS (GEENA,COR,MAD) (08/27/2024 9:58 AM EDT) [facility] Reference Lab Report [facility] [address] [place] [address] or [phone] Masood Herron M.D., [employer] PATIENT NAME LABORATORY NO. [id number] KARMEN BRAVO [id number] AGE SEX SSN CLIENT REF # [facility] 22 2000 F [id number] Anuradha RENDON REQUESTING Joe [place] [address] CECILIA CONTRERAS DATE COLLECTED DATE RECEIVED DATE [...] of chlamydial and gonococcal disease using the Gardiner system. ASSET MANAGER: JOSHUA OSORIO (ASCP) CPT CODES: 06355, 22333, 52232 09/04/2024 10:12 AM EDT [facility] ThinPrep Vial Cervix uteri structure / Unknown Collection / Unknown 08/27/2024 9:58 AM EDT 08/27/2024 9:58 AM EDT us Cecilia Contreras REFRIGERATOR REPAIRMAN PATHOLOGY/CYTOLOGY ORDERA BLES Final Result [facility]
[address] [place] [address], [place] [phone] * (ABNORMAL) Lipid Panel (05/21/2024 12:34 PM [...] - 05/22/2024 8:10 AM EDT Performed at: - [facility] [address] [place] [id number] [employer] [place]: Dagoberto Campbell PhD, Phone: [phone] us Mingo Limon MD LAB BLOOD ORDERABLES Final Resul t [facility]) [address] [place] [address], [facility] [address] [place] [address], [place] [phone] from Last 3 Months or Most Recently Relevant to Health Maintenance Insurance [facility] Care Teams Supervisor Pile Driving Relationship Specialty Start Date End Date Mingo Limon MD [address] [place] [address] [place] [id number] PCP - General Internal Medicine 07/30/22
--- OUTSIDE RECORDS SUMMARY | 2025-08-03 08:51 | XMS_ITS | Encounter Summary ---
Author Organization [facility] Address [address] [place] [address] Care Team Providers Care Newspaper Vendor Name Role Phone Mingo Limon MD Primary Care Provider [phone] Encounter Details Date Type Department Care Team [...] [facility] [address] [place] [phone] Franchesca Sullivan W, BLOCK BREAKER [address] [place] [address] [place] [address] 08/19/2025 8:45 AM EDT Office Visit [facility] [address] [place] [address] Mingo Limon MD [address] [place] [address] 08/23/2025 7:30 AM EDT Office Visit [facility] [address] [place] [address] 08/23/2025 7:30 AM EDT Appointment [facility] PER DIAG CTR [address] [place] [address] documented as of this encounter Visit Diagnoses Not on filedocumented in this encounter Care Teams Newspaper Vendor Relationship Specialty Start Date End Date Mingo Limon MD [address] [place] [address] PCP - General Internal Medicine 07/30/22 documented as of this encounter
--- OUTSIDE RECORDS SUMMARY | 2025-08-03 08:51 | XMS_ITS | Encounter Summary ---
Author Organization [facility] Address [address] [place] [address] Care Team Providers Care Mechanical Design Engineer Products Name Role Phone Mingo Limon MD Primary Care Provider [phone] Encounter Details Date Type Department Care Team [...] Description 08/09/2025 10:00 AM EDT Office Visit [facility] [address] [place] [address] Franchesca Sullivan W, MANAGER OF PURCHASING [address] [place] [address] [place] [address] 08/19/2025 8:45 AM EDT Office Visit [facility] [address] [place] [phone] Mingo Limon MD [address] [place] [id number] 08/23/2025 7:30 AM EDT Office Visit [facility] MEDICINE [address] [place] [address] 08/23/2025 7:30 AM EDT Appointment [facility] US PER DIAG CTR [address] [place] [address] documented as of this encounter Visit Diagnoses Not on filedocumented in this encounter Care Teams Mechanical Design Engineer Products Relationship Specialty Start Date End Date Mingo Limon MD [address] [place] [id number] PCP - General Internal Medicine 07/30/22 documented as of this encounter
--- OUTSIDE RECORDS SUMMARY | 2025-08-03 08:51 | XMS_ITS | Encounter Summary ---
Author Organization [facility] Address [address] [place] [address] Care Team Providers Care Barrel Charrer Name Role Phone Mingo Limon MD Primary Care Provider [phone] Encounter Details Date Type Department Care Team [...] CLINIC [place] [address] Franchesca Sullivan W, HANDBAG FRAMES INSPECTOR [address] [place] [address] [place] [address] 08/19/2025 8:45 AM EDT Office Visit [facility] PR[facility] [address] [place] [address] Mingo Limon MD [address] [place] [address] 08/23/2025 7:30 AM EDT Office Visit [facility]NAL MEDICINE [address] [place] [address] 08/23/2025 7:30 AM EDT Appointment [facility] US PER DIAG CTR [address] [place] [address] documented as of this encounter Visit Diagnoses Not on filedocumented in this encounter Care Teams Barrel Charrer Relationship Specialty Start Date End Date Mingo Limon MD [address] [place] [address] PCP - General Internal Medicine 07/30/22 documented as of this encounter
--- OUTSIDE RECORDS SUMMARY | 2025-08-03 08:51 | XMS_ITS | Encounter Summary ---
Author Organization [facility] Address [address] [place] [address] Care Team Providers Care Associate Chief Nurse Name Role Phone Mingo Limon MD Primary Care Provider [phone] Encounter Details Date Type Department Care Team (Late st Contact Info) Description 06/27/[address] [facility]NAL MEDICINE [address] [facility] [address] [place] [address] Vira Paniagua, RN Social History [...] use vitaliy. Patient is to notify through Tendrt once she has entered in our clinic [...] [address] [place] [address] Franchesca Sullivan, CO DIRECTOR [address] [place] [address] [place] [address] 08/19/2025 8:45 AM EDT Office Visit [facility] [address] [place] [address] [place] [phone] Mingo Limon MD [address] [place] [address] [place] [address] 08/23/2025 7:30 AM EDT Office Visit [facility]NAL MEDICINE [address] [place] [address] 08/23/2025 7:30 AM EDT Appointment [facility] US PER DIAG CTR [address] [place] [address] documented as of this encounter Visit Diagnoses Not on filedocumented in this encounter Care Teams Associate Chief Nurse Relationship Specialty Start Date End Date Mingo Limon MD [address] [place] [address] PCP - General Internal Medicine 07/30/22 documented as of this encounter
--- OUTSIDE RECORDS SUMMARY | 2025-08-03 08:51 | XMS_ITS | Encounter Summary ---
Author Organization [facility] Address [address] [place] [address] Care Team Providers Care Teacher Tutor Name Role Phone Mingo Limon MD Primary Care Provider [phone] Reason for Visit * Reason Onset Date Comments Advice Only 07/03/2025 Encounter Details Date Type Department Care Team (Late st Contact Info) Description 07/03/2025 Telephone [facility] MATERNAL MEDICINE [address] [facility] [address] [place] [address] Vira Paniagua coordinator of evaluation Only Social History Tobacco Use Types Packs/Day [...] Delivery Comme nts Yes 09/18/2025 Date entered rnajana or to episode creation Sex and Gender [...] wants to use [facility] pharmacy in [place]. Vira Paniagua RN documented in this encounter Plan of Treatment Upcoming Encounters Date Type Department Care Team (Late st Contact Info) Description 08/09/2025 10:00 AM EDT Office Visit [facility] CARDIOLOGY [address] [place] [address] Franchesca Sullivan, PHONE REPRESENTATIVE [address] [place] [address] 08/19/2025 8:45 AM EDT Office Visit [facility] PRIMARY CARE [address] [place] [address] [place] [address] Mingo Limon MD [address] [place] [address] [place] [address] 08/23/2025 7:30 AM EDT Office Visit [facility] MATERNAL MEDICINE [address] [place] [address] 08/23/2025 7:30 AM EDT Appointment [facility] PER DIAG CTR [address] [place] [address] documented as of this encounter Visit Diagnoses Not on filedocumented in this encounter Care Teams Teacher Tutor Relationship Specialty Start Date End Date Mingo Limon MD [address] [place] [address] [place] [id number] PCP - General Internal Medicine 07/30/22 documented as of this encounter
--- OUTSIDE RECORDS SUMMARY | 2025-08-03 08:51 | XMS_ITS | Encounter Summary ---
Author Organization [facility] Address [address] [place] [address] Care Team Providers Care Head Miller Name Role Phone Mingo Limon MD Primary Care Provider [phone] Encounter Details Date Type Department Care Team (Late st Contact Info) Description 07/11/2025 Medication Therapy Management [facility] MATERNAL MEDICINE [address] [place] [id number] Daija Murray MD [address] [place] [address] Social History Tobacco Use Types Packs/Day Years [...] Visit [facility] CARDIOLOGY [address] [place] [id number] Franchesca Sullivan, ORDER SELECTOR [address] [place] [address] [place] [address] 08/19/2025 8:45 AM EDT Office Visit [facility] PRIMARY CARE [address] [place] [address] [place] [id number] Mingo Limon MD [address] [place] [address] [place] [id number] 08/23/2025 7:30 AM EDT Office Visit [facility] MATERNAL MEDICINE [address] [facility] [address] [place] [address] 08/23/2025 7:30 AM EDT Appointment [facility] PER DIAG CTR [address] [place] [address] documented as of this encounter Visit Diagnoses Not on filedocumented in this encounter Care Teams Head Miller Relationship Specialty Start Date End Date Mingo Limon MD [address] [place] [address] [place] [id number] PCP - General Internal Medicine 07/30/22 documented as of this encounter
--- OUTSIDE RECORDS SUMMARY | 2025-08-03 08:53 | XMS_ITS | Encounter Summary ---
Author Organization [facility] Address [address] [place] [address] Care Team Providers Care Line Assigner Name Role Phone Mingo Limon MD Primary Care Provider [phone] Encounter Details Date Type Department Care Team (Late st Contact Info) Description 07/17/2025 Medication Therapy Management [facility] MATERNAL MEDICINE [address] [place] [phone] Daija Murray MD [address] [place] [address] Social History Tobacco Use Types Packs/Day Years [...] Visit [facility] CARDIOLOGY [address] [place] [id number] Franchesca Sullivan, SHEEPSKIN PICKLER [address] [place] [address] 08/19/2025 8:45 AM EDT Office Visit [facility] PRIMARY CARE [address] [place] [address] [place] [id number] Mingo Limon MD [address] [place] [address] [place] [address] 08/23/2025 7:30 AM EDT Office Visit [facility] MATERNAL MEDICINE [address] [facility] [address] [place] [address] 08/23/2025 7:30 AM EDT Appointment [facility] PER DIAG CTR [address] [place] [address] documented as of this encounter Visit Diagnoses Not on filedocumented in this encounter Care Teams Line Assigner Relationship Specialty Start Date End Date Mingo Limon MD [address] [place] [address] [place] [id number] PCP - General Internal Medicine 07/30/22 documented as of this encounter
--- OUTSIDE RECORDS SUMMARY | 2025-08-03 08:53 | XMS_ITS | Encounter Summary ---
Author Organization [facility] Address [address] [place] [address] Care Team Providers Care Undertaker Assistant Name Role Phone Mingo Limon MD Primary Care Provider [phone] Encounter Details Date Type Department Care Team (Late st Contact Info) Description 07/16/2025 Education [facility] DIABETES ED [address] [facility] [address] [place] [address] Yelena De La Paz, RN [...] signed by: Yelena De La Paz RN, [facility] 07/16/25 09:14 EDT documented in this encounter Plan of Treatment Upcoming Encounters Date Type Department Care Team (Late st Contact Info) Description 08/09/2025 10:00 AM EDT Office Visit [facility] CARDIOLOGY [address] [place] [address] Franchesca Sullivan, BRACE END [employer] FORMER [address] [place] [address] 08/19/2025 8:45 AM EDT Office Visit [facility] PRIMARY CARE [address] [place] [address] [place] [phone] Mingo Limon MD [address] [place] [address] [place] [address] 08/23/2025 7:30 AM EDT Office Visit [facility] MATERNAL MEDICINE [address] [place] [address] 08/23/2025 7:30 AM EDT Appointment [facility] PER DIAG CTR [address] [place] [address] documented as of this encounter Visit Diagnoses Not on filedocumented in this encounter Care Teams Undertaker Assistant Relationship Specialty Start Date End Date Mingo Limon MD [address] [place] [address] [place] [id number] PCP - General Internal Medicine 07/30/22 documented as of this encounter
--- OUTSIDE RECORDS SUMMARY | 2025-08-03 08:53 | XMS_ITS | Patient Health Record ---
Author Organization [facility] Address [address] [facility] [place] [address] Care Team Providers Care Licensed Insurance Agent Name Role Phone SANDOR BLAKELY Unavailable [phone] Sandor Blakely MD Unavailable Unavailable Allergies No [...] W/U Status Risk Notes Problem Allergic rhinitis ([id number]) Allergic rhinitis (J30.9) Active confirmed Plan Of Treatment No Information Insurance Providers Payer Name Payer Address Payer Phone Subscriber Number Group Number Insured Name Patient Relationship to Insured Coverage Start Date Coverage End Date [employer] MEDICA[employer] [address] [place] [address] [phone] [id number] [place] [employer] Self - patient is the insured Medical (General) History Medical History History ICD Code DEPRESSION AND ANXIETY Surgical History Surgery Date(Month/Year) WISDOM TEETH 2019
--- OUTSIDE RECORDS SUMMARY | 2025-08-03 08:54 | XMS_ITS | Encounter Summary ---
Author Organization [facility] Address [address] [place] [address] Care Team Providers Care Booth Cleaner Name Role Phone Mingo Limon MD Primary Care Provider Reason for Visit * Reason Comments Med Refill Encounter Details Date Type Department Care Team (Late st Contact Info) Description 07/20/2025 Refill [facility] PRIMARY CARE [address] [place] [address] [place] [address] Mingo Limon MD [address] [place] [address] [place] [address] ADHD, predominantly inattentive type Social History [...] [facility] [address] [place] [address] Franchesca Sullivan, TEA BLENDER [address] [place] [address] 08/19/2025 8:45 AM EDT Office Visit [facility] PRIMARY CARE [address] [place] [address] [place] [address] Mingo Limon MD [address] [place] [address] [place] [id number] 08/23/2025 7:30 AM EDT Office Visit [facility] MATERNAL MEDICINE [address] [place] [address] 08/23/2025 7:30 AM EDT Appointment [facility] PER DIAG [facility] [address] [place] [address] documented as of this encounter Visit Diagnoses Diagnosis ADHD, 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
--- OUTSIDE RECORDS SUMMARY | 2025-08-03 08:54 | XMS_ITS | Encounter Summary ---
Author Organization [facility] Address [address] [place] [address] Care Team Providers Care Medical Laboratory Manager Name Role Phone Mingo Limon MD Primary Care Provider [phone] Encounter Details Date Type Department Care Team (Late st Contact Info) Description 08/01/2025 Medication Therapy Management [facility] MATERNAL MEDICINE [address] [place] [phone] Daija Murray MD [address] [place] [address] Social History Tobacco Use Types Packs/Day Years [...] [facility] CARDIOLOGY [address] [place] [address] Franchesca Sullivan, BLENDING TANK TENDER [address] [place] [address] [place] [address] 08/19/2025 8:45 AM EDT Office Visit [facility] PRIMARY CARE [address] [place] [address] [place] [phone] Mingo Limon MD [address] [place] [address] [place] [address] 08/23/2025 7:30 AM EDT Office Visit [facility] MATERNAL MEDICINE [address] [facility] [address] [place] [address] 08/23/2025 7:30 AM EDT Appointment [facility] PER DIAG CTR [address] [place] [address] documented as of this encounter Visit Diagnoses Not on filedocumented in this encounter Care Teams Medical Laboratory Manager Relationship Specialty Start Date End Date Mingo Limon MD [address] [place] [address] [place] [address] PCP - General Internal Medicine 07/30/22 documented as of this encounter
--- OUTSIDE RECORDS SUMMARY | 2025-08-03 08:54 | XMS_ITS | Encounter Summary ---
Author Organization [facility] Address [address] [place] [address] Care Team Providers Care Manager Terminal Name Role Phone Mingo Limon MD Primary Care Provider [phone] Encounter Details Date Type Department Care Team (Late st Contact Info) Description 07/24/[address] [facility] MATERNAL MEDICINE [address] [place] [phone] Daija Murray MD [address] [place] [address] Social History Tobacco Use Types Packs/Day Years [...] [facility] [address] [place] [id number] Franchesca Sullivan, BOILER ENGINEER [address] [place] [address] [place] [address] 08/19/2025 8:45 AM EDT Office Visit [facility] PRIMARY CARE [address] [place] [address] [place] [id number] Mingo Limon MD [address] [place] [address] [place] [address] 08/23/2025 7:30 AM EDT Office Visit [facility] MATERNAL MEDICINE [address] [facility] [address] [place] [address] 08/23/2025 7:30 AM EDT Appointment [facility] PER DIAG CTR [address] [place] [address] documented as of this encounter Visit Diagnoses Not on filedocumented in this encounter Care Teams Manager Terminal Relationship Specialty Start Date End Date Mingo Limon MD [address] [place] [address] [place] [address] PCP - General Internal Medicine 07/30/22 documented as of this encounter
--- OUTSIDE RECORDS SUMMARY | 2025-08-03 08:57 | XMS_ITS | Encounter Summary ---
Author Organization [facility] Address [address] [place] [address] Care Team Providers Care Veneer Joiner Name Role Phone Mingo Limon MD Primary Care Provider [phone] Encounter Details Date Type Department Care Team [...] Description 08/09/2025 10:00 AM EDT Office Visit [facility] CARDIOLOGY [address] [place] [phone] Franchesca Sullivan W, SUPERVISOR INSECTICIDE [address] [place] [address] 08/19/2025 8:45 AM EDT Office Visit [facility] PRIMARY CARE [address] [place] [phone] Mingo Limon MD [address] [place] [address] 08/23/2025 7:30 AM EDT Office Visit [facility] MATERNAL MEDICINE [address] [place] [address] 08/23/2025 7:30 AM EDT Appointment [facility] US PER DIAG CTR [address] [place] [address] documented as of this encounter Visit Diagnoses Not on filedocumented in this encounter Care Teams Veneer Joiner Relationship Specialty Start Date End Date Mingo Limon MD [address] [place] [address] PCP - General Internal Medicine 07/30/22 documented as of this encounter
[2025-08-03 09:26] LABS: Microscopic, Urine URINE MICROSCOPIC (MICROSCOPIC)
[2025-08-03 09:28] LABS: Bilirubin,Urine Negative (Negative); Color,Urine YELLOW (Yellow); Glucose,Urine (UA) Negative (Negative); Ketones,Urine TRACE (Negative); Leukocyte Esterase,Urine 2+ (Negative); PH,Urine 6.0 (5.0-8.5); Protein,Urine Negative (Negative); Specific Gravity, Urine 1.020 (1.005-1.030); Urobilinogen,Urine 0.2 EU/dl (0.2)
[2025-08-03 09:51] LABS: Bacteria,Urine 2+ /lpf; Calcium Oxalate Crystals,Urine Trace /lpf; WBC,Urine 20-50 #/hpf (0-3)
[2025-08-03] MEDS: LACTATED RINGERS 1000ML 1,000 ML 999 ML IV (10:23)
--- NOTE | 2025-08-03 10:43 | EXP.ACUTE.PN ---
Subjective *Date: 08/03/25 *Time: 10:43 Interval history: She complains of irregular contractions today. Baby is active. Medical Exam Vital signs and Labs for Last 24 Hours: Laboratory Results - last 24 hr 08/03/25 09:01: Urine Color Yellow, Urine Appearance Cloudy, Urine pH 6.0, Ur Specific [place] 1.020, Urine Protein Negative, Urine Glucose (UA) Negative, Urine Ketones Trace, Urine Blood Negative, Urine Nitrate Negative, Urine Bilirubin Negative, Urine Urobilinogen 0.2, Ur Leukocyte Esterase 2+ A, Urine RBC None, Urine WBC 20-50, Ur Squamous Epith Cells 10-20, Ur Transition Epith Cell 5-10, Calcium Oxalate Crystal Trace, Urine Bacteria 2+ Head: Present normocephalic Neck: Present normal inspection Respiratory: Present normal respiratory effort; Absent accessory muscle use GI: Present soft; Absent distention or tenderness Assessment and Plan *Assessment and plan (1) Maternal obesity affecting , antepartum: Status: Acute Qualifiers: Obesity type affecting : unspecified obesity Qualified Code(s): O99.210 - Obesity complicating , unspecified trimester Category: Medical Code(s): O99.210 - Obesity complicating , unspecified trimester (2) Gestational diabetes mellitus (GDM): Status: Acute Qualifiers: Gestational diabetes mellitus control: diet-controlled Trimester: third trimester Qualified Code(s): O24.410 - Gestational diabetes mellitus in , diet controlled Category: Medical Code(s): O24.419 - Gestational diabetes mellitus in , unspecified control (3) History of pre-term labor: Status: Acute Category: Medical Code(s): Z87.51 - Personal history of pre-term labor Plan 1. She has a history of delivery at 32 weeks. She is known to have a bicornuate uterus. 2. She has 2+ leukocyte esterase in her urine today so we will go ahead and treat her with Rocephin. 3. We will give her IV fluids as well and once this is done we will send her on her way home.
[2025-08-03] MEDS: CEFTRIAXONE 1 GM 1 GM in 0.9 % SODIUM CHLORIDE 50 ML IV (12:20)
[2025-08-03] MEDS: TERBUTALINE SULFATE 1MG/ML VIAL 0.25 MG SUBCUT (12:56)
--- NOTE | 2025-08-03 14:17 | EXP.HPDC ---
General Admission date:: 08/03/25 Discharge date: 08/03/25 *Admission Date: 08/03/25 *Chief complaint: labor. History of delivery. GDM *History of present illness: She is a 25-year-old 2 para 1 at 33 weeks 2 days gestational age. She comes in feeling irregular contractions. She says they have been getting stronger. She has been recently by [facility] for gestational diabetes. She has been receiving insulin. She has a history of delivery at 32 weeks. It was thought that this was likely due to her bicornuate uterus. She is an otherwise healthy lady. [facility] Disclaimer: The information contained in this section may have been updated after the patient was seen, as this information can be updated by other users. Medical History (Updated 08/03/25 @ 14:42 by Emanuel Ponce MD) Bicornuate uterus affecting , antepartum Maternal obesity affecting , antepartum LGA (large for gestational age) fetus affecting management of mother White classification A2 gestational diabetes mellitus (GDM) Bicornuate uterus Infertility Surgical History History of wisdom tooth extraction, class I edentulism Family History Cancer Grandmother Social History Smoking Status: Never smoker alcohol intake: never current occupational status: unemployed Travel in the last 8 weeks?: None Have you lived/traveled outside US in past 30 days?: No Contact w/someone who lives/traveled outside US past 30 days?: No Exposure to someone with infectious disease in past 14 days?: No Do you have a fever (greater than 100.4 F or 38 C)?: No Have you tested positive for COVID-19?: No Exposed to someone with COVID-19 in past 14 days?: No Do you have a sore throat?: No Do you have a cough?: No Do you have any weakness?: No Do you have any diarrhea?: No Are you experiencing any unusual bleeding?: No Do you have any muscle aches/pain?: No Do you have any abdominal pain?: Yes Are you experiencing loss of taste or smell?: No Other Medical History Have you received the Flu Vaccine for this season: Yes (past season) Have you received the Pneumonia Vaccine: No Review of Systems Review of Systems Review of systems:: pertinent systems reviewed and negative unless documented below Exam Data for Last 24 hours Vital signs and Labs for Last 24 Hours: BP 126/86 08/03/25 13:32 Laboratory Results - last 24 hr 08/03/25 09:01: Urine Color Yellow, Urine Appearance Cloudy, Urine pH 6.0, Ur Specific [place] 1.020, Urine Protein Negative, Urine Glucose (UA) Negative, Urine Ketones Trace, Urine Blood Negative, Urine Nitrate Negative, Urine Bilirubin Negative, Urine Urobilinogen 0.2, Ur Leukocyte Esterase 2+ A, Urine RBC None, Urine WBC 20-50, Ur Squamous Epith Cells 10-20, Ur Transition Epith Cell 5-10, Calcium Oxalate Crystal Trace, Urine Bacteria 2+ I & O for Last 24 hours: Intake & Output 08/01/25 08/02/25 08/03/25 08/04/25 11:59 11:59 11:59 11:59 Intake Total 1050 / 1050 Balance 1050 / 1050 Constitutional Constitutional: no acute distress *Routine HEENT Exam Head: Present normocephalic Eye: Present EOMI and PERRL ENT: Present mucous membranes moist *Routine Neck Exam Neck: Present supple; Absent lymphadenopathy *Routine Respiratory Exam Respiratory: Present CTA bilaterally *Routine Cardiovascular Exam Cardiovascular: Present RRR *Routine Abdominal Exam Abdominal: Present soft and normoactive bowel sounds; Absent tenderness *Routine Rectal Exam Rectal:: deferred *Routine Genitalia Exam Genitalia:: deferred *Routine Extremities Exam Extremities: Absent cyanosis, clubbing or edema *Routine Skin Exam Skin: Present warm; Absent rash *Routine Neurological Exam Neurological: Present alert and oriented X3 Detailed Exam Comments: Her cervix has changed from 1 to 3 cm. Meds Home Medications and Allergies Home Medications ?Medication ?Instructions ?Recorded ?Confirmed ?Type escitalopram oxalate 20 mg tablet 20 mg PO DAILY 11/12/22 07/30/25 History (Lexapro) buspirone 15 mg tablet 15 mg PO BID 03/25/23 07/30/25 History bupropion HCl 300 mg 24 hr tablet, 300 mg PO DAILY 02/01/25 07/30/25 History extended release methylphenidate HCl 5 mg tablet 5 mg PO DAILY 02/01/25 07/30/25 History methylphenidate HCl 36 mg mg PO 03/11/25 07/30/25 History tablet,extended release 24 hr aspirin 81 mg tablet 81 mg PO DAILY 04/29/25 07/30/25 History ferrous sulfate 325 mg (65 mg 325 mg PO DAILY #30 tabs 04/29/25 07/30/25 Rx iron) tablet labetalol 200 mg tablet 200 mg PO BID 05/30/25 07/30/25 History blood-glucose,account auditor,cont #1 ea 06/24/25 07/30/25 Rx (Dexcom G7 Grocery Clerk Marking) insulin glargine 100 unit/mL (3 unit SQ 07/22/25 07/30/25 History mL) subcutaneous pen (Lantus Solostar U-100 Insulin) insulin lispro 100 unit/mL SQ 07/22/25 07/30/25 History subcutaneous pen pen needle, diabetic 31 gauge x #1,200 ea 07/22/25 07/30/25 History 3/16 (Ultra-Fine Pen Needle) blood-glucose sensor (Dexcom G7 #3 ea 07/26/25 07/30/25 Rx Sensor device) hydrocortisone 2.5 % topical cream 1 applic topical BID #20 grams 07/30/25 07/30/25 Rx New Prescriptions to Start Prescriptions: Allergies Allergy/AdvReac Type Severity Reaction Status Date / Time No Known Allergies Allergy Verified 07/30/25 11:20 Hospital Course Hospital Course Hospital Course: She was admitted for observation and given an IV bolus of fluid. She continued to have contractions and as a result of that we elected to give her Brethine. She continued to have contractions and she received 1 dose of nifedipine. This did not help with her contractions so we have started her on magnesium sulfate. Urinalysis revealed that she had 2+ leukocyte esterase and we have given her 1 g of Rocephin. This should cover for group B strep initially. She has changed her cervix from 1 to 3 cm and as a result of that we we will transfer her to [facility]. I spoke with Dr. Sarah George and she will accept her in transfer. We will give her another dose of steroids prior to discharge. Results Data Completed and Pending Labs on day of discharge: Labs from last 24 hours 08/03/25 09:01 Urine Color Yellow Urine Appearance Cloudy Urine pH 6.0 Ur Specific [place] 1.020 Urine Protein Negative Urine Glucose (UA) Negative Urine Ketones Trace Urine Blood Negative Urine Nitrate Negative Urine Bilirubin Negative Urine Urobilinogen 0.2 Ur Leukocyte Esterase 2+ A Urine RBC None Urine WBC 20-50 Ur Squamous Epith Cells 10-20 Ur Transition Epith Cell 5-10 Calcium Oxalate Crystal Trace Urine Bacteria 2+ DS: Diagnosis Discharge Diagnosis (1) Maternal obesity affecting , antepartum: Status: Acute Code(s): O99.210 - Obesity complicating , unspecified trimester Qualifiers: Obesity type affecting : unspecified obesity Qualified Code(s): O99.210 - Obesity complicating , unspecified trimester (2) Gestational diabetes mellitus (GDM): Status: Acute Code(s): O24.419 - Gestational diabetes mellitus in , unspecified control Qualifiers: Gestational diabetes mellitus control: diet-controlled Trimester: third trimester Qualified Code(s): O24.410 - Gestational diabetes mellitus in , diet controlled (3) History of pre-term labor: Status: Acute Code(s): Z87.51 - Personal history of pre-term labor (4) labor in third trimester: Status: Acute Code(s): O60.03 - labor without delivery, third trimester Qualifiers: labor delivery status: without delivery Qualified Code(s): O60.03 - labor without delivery, third trimester (5) Bicornuate uterus affecting , antepartum: Status: Acute Code(s): O34.00 - Maternal care for unspecified congenital malformation of uterus, unspecified trimester; Q51.3 - Bicornate uterus Discharge Plan Disposition Patient Disposition: Xfer Short-Term Hosp Discharge Order Discharge Orders: Discharge Order (Routine); Ordered 08/03/25 Ordered By: Emanuel Ponce Follow up Plan Prescriptions/Medication Reconciliation: Continued escitalopram oxalate [Lexapro] 20 mg tablet 20 mg PO DAILY buspirone 15 mg tablet 15 mg PO BID aspirin 81 mg tablet 81 mg PO DAILY ferrous sulfate 325 mg (65 mg iron) tablet 325 mg PO DAILY Qty: 30 5RF labetalol 200 mg tablet 200 mg PO BID methylphenidate HCl 36 mg tablet extended release 24hr PO Patient Comments: Take 1 tablet by mouth Every Morning hydrocortisone 2.5 % cream 1 applic topical BID Qty: 20 0RF insulin lispro 100 unit/mL insulin pen SQ Patient Comments: Inject 5 Units under the skin into the appropriate area as directed 3 (Three) Times a Day With Meals. Please take 15 minutes before each meal. (DME) pen needle, diabetic [Ultra-Fine Pen Needle] 31 gauge x 3/16 needle See Rx Instructions .ROUTE .MEDSUPPLY Qty: 1200 Patient Comments: Use 1 each 4 (Four) Times a Day. Rx Instructions: As directed insulin glargine [Lantus Solostar U-100 Insulin] 100 unit/mL (3 mL) insulin pen SQ Patient Comments: Inject 10 Units under the skin into the appropriate area as directed Daily. (DME) Dexcom G7 Grocery Clerk Marking Misc See Rx Instructions .Route Qty: 1 0RF Rx Instructions: As directed (DME) Dexcom G7 Sensor Device See Rx Instructions .ROUTE .COMPLEX Qty: 3 0RF Dose Instruction: USE As directed EVERY 10 DAYS Rx Instructions: USE As directed EVERY 10 DAYS methylphenidate HCl 5 mg tablet 5 mg PO DAILY Patient Comments: Take 1 tablet by mouth Daily With Lunch. bupropion HCl 300 mg tablet extended release 24 hr 300 mg PO DAILY Patient Comments: Take 1 tablet by mouth Daily. Problem Reconciliation Problems Reviewed?: Yes Patient Discharge Instructions ACTIVITY: Bed rest DIET: diabetic diet Stand Alone Forms: Transfer Record Print Language: Swedish Providers Primary Care Provider: Mingo Limon Admit Provider: Emanuel Ponce Attending Provider: Emanuel Ponce
[2025-08-03] MEDS: MAGNESIUM SULFATE IN WATER 4 GM/50 ML PIGGYBACK IV (14:25)
[2025-08-03] MEDS: LACTATED RINGERS 1000ML 1,000 ML 75 ML IV (14:25)
--- NOTE | 2025-08-03 14:37 | PC.NURSE ---
armand pressley Current Medications Betamethasone Acet/Betameth SodPhos (Betamethasone Acet/Phos 6mg/Ml 5ml Mdv) 12 mg IM ONCE ONE Stop: 08/03/25 14:46 Magnesium Sulfate (Magnesium Sulfate 4gm/50ml Premix) 4 gm in 50 mls @ 150 mls/hr IV ONCE ONE Stop: 08/03/25 14:49 Last Admin: 08/03/25 14:25 Dose: 150 mls/hr Magnesium Sulfate (Magnesium Sulfate 20gm/500ml Premix (Ob Only)) 20 gm in 500 mls @ 50 mls/hr IV .Q10H BOZENA Stop: 09/02/25 14:29 Lactated Ringer's (Lactated Ringer's 1000 Ml Bag) 1,000 mls @ 75 mls/hr IV .[id number] BOZENA Stop: 09/02/25 14:29 Last Admin: 08/03/25 14:25 Dose: 75 mls/hr
[2025-08-03] MEDS: BETAMETHASONE ACET/PHOS 6MG/ML 5ML MDV 12 MG IM (14:38)
[2025-08-03] MEDS: MAGNESIUM SULFATE IN WATER 20 GM/500 ML IV.SOLN IV (14:45)
== END 2025-08-03 16:30 | disposition short-term general hospital (02) ==
LOC: OBOUT 14:12 → OB 14:12
PROVIDERS: Admitting Provider Nurse Practitioner Obstetrics & Gynecology; PCP Pediatrics; Visit Provider Nurse Practitioner Obstetrics & Gynecology
DX: O60.03 Preterm labor without delivery, third trimester (principal); O24.410 Gestational diabetes mellitus in pregnancy, diet controlled; O99.213 Obesity complicating pregnancy, third trimester; O34.03 Maternal care for unspecified congenital malformation of uterus, third trimester; Q51.3 Bicornate uterus; E66.9 Obesity, unspecified; Z87.51 Personal history of pre-term labor; Z3A.33 33 weeks gestation of pregnancy
CPT/HCPCS: 59025; 81001; 87086; 96372; 99212; G0378; G0463; J0696; J0702; J3105; J3475; J7120

== ENCOUNTER 2025-09-18 11:07 | Outpatient (CLI) | payer OTHER, SELFPAY ==
[2025-09-18 08:10] VITALS: BMI 34.7
[2025-09-18 11:34] LABS: Hematocrit 35.5 % (37.0-47.0); Hemoglobin 11.6 g/dL (12.2-16.2); Immature Granulocytes % 0.3 %; Mean Corpuscular HGB Conc 32.7 g/dL (31.8-35.4); Mean Corpuscular Hemoglobin 28.7 pg (27.0-31.2); Mean Corpuscular Volume 87.9 fl (81-99); Nucleated Red Blood Cells % 0 %; Platelet Count 220 K/mm3 (142-424); Red Blood Count 4.04 M/mm3 (4.20-5.40); Red Cell Distribution Width-SD 41.0 fL; White Blood Count 7.5 K/mm3 (4.8-10.8)
[2025-09-18 11:42] LABS: Albumin Level 4.3 g/dl (3.5-5.0); Chloride 103 mmol/L (98-107); Sodium 139 mmol/L (136-145)
[2025-09-18 11:43] LABS: Potassium 4.4 mmoL/L (3.5-5.1)
[2025-09-18 11:45] LABS: Alanine Aminotransferase 60 U/L (12-78); Albumin/Globulin Ratio 1.4 (1.1-1.8); Alkaline Phosphatase 115 U/L (38-126); Anion Gap 12.4 mEq/L (5-15); Aspartate Amino Transferase 43 U/L (14-36); Bilirubin,Total 0.4 mg/dl (0.2-1.3); Blood Urea Nitrogen 11 mg/dl (7-17); Carbon Dioxide 28 mmol/L (22.0-30.0); Creatinine Clearance Estimated 135 mL/min (50-200); Creatinine,Serum 0.80 mg/dl (0.52-1.04); Estimated Glomerular Filt Rate 89 ml/min (>60); GFR (African American) 108 ML/MIN (>60); Globulin 3.1 g/dL (1.3-3.2); Total Protein,Serum 7.4 g/dl (6.3-8.2)
[2025-09-18 11:46] LABS: Calcium 9.0 mg/dl (8.4-10.2); Glucose 101 mg/dl (74-100)
[2025-09-18 12:45] LABS: HCG Qualitative, Serum Negative (Negative)
== END 2025-09-18 23:59 | disposition home or self-care (01) ==
LOC: PREOP 11:08
PROVIDERS: PCP Pediatrics; Visit Provider Nurse Practitioner Obstetrics & Gynecology
DX: Z01.812 Encounter for preprocedural laboratory examination (principal)
CPT/HCPCS: 80053; 84703; 85025

== ENCOUNTER 2025-09-23 06:01 | Day surgery (SDC) | payer OTHER, SELFPAY ==
[2025-09-18 14:25] VITALS: BMI 34.3
[2025-09-23] VITALS (8 sets, daily range): BP systolic 102–152; BP diastolic 63–89; PULSE 80–114; RESP 16–22; TEMP 36.1–36.3; O2SAT 94–100; BMI 34.3
[2025-09-23] MEDS: CEFAZOLIN 2GM VIAL 2 GM
[2025-09-23] MEDS: LACTATED RINGERS 1000ML 1,000 ML 25 ML IV (06:38)
--- NOTE | 2025-09-23 06:56 | P.PNANES_ITS ---
[facility] Disclaimer: The information contained in this section may have been updated after the patient was seen, as this information can be updated by other users. Medical History Asthma Encounter for contraceptive planning Encounter for preoperative assessment Second trimester Fluid loss Abdominal cramping affecting Encounter for medical assessment Abdominal cramping Vaginal spotting First trimester Tachycardia Chest pain Hematuria Bicornuate uterus affecting , antepartum Maternal obesity affecting , antepartum LGA (large for gestational age) fetus affecting management of mother White classification A2 gestational diabetes mellitus (GDM) Bicornuate uterus Infertility Surgical History History of wisdom tooth extraction, class I edentulism Family History Grandmother Cancer Other Family history of diabetes mellitus Family history of heart disease Social History (Updated 09/23/25 @ 06:23 by Teresa Mock RN) Smoking Status: Never smoker alcohol intake: never substance use type: denies use current occupational status: unemployed Travel in the last 8 weeks?: None [facility] Anesthesia Checklist Patient Identification Patient Identification: Arm Band and Family Structural Data Admitted From: Home Planned Operative Procedure/s: Lap Salpingectomy Consent for Planned Operative Procedure(s) Verified: Yes Verified Documents: Surgical Consent and History and Physical NPO Status Verified Time NPO: 00:00 Additional verifications Patient : No Anesthesia Reactions: No Hx Blood Transfusions: No Blood Transfusion Reaction: No Cephalosporin Allergy: No Previous Colonoscopy: No Airway Assessment Mallampati Score:: Class II C-Spine Mobility Assessed: Yes TMJ Mobility Assessed: Yes Neurological Assessment Level of Consciousness: Awake, Alert, Appropriate and Follows Commands Hx Seizures: No Numbness or tingling in extremities: No Anesthesia Plan ASA Class: II Anesthesia Type: General Preoperative Comments Pre-Operative Comments: PONV
--- NOTE | 2025-09-23 08:45 | P.OP_ITS ---
Date of procedure: 09/23/25 Pre-op Diagnosis:: Desire for sterilization Post-op Diagnosis:: Desire for sterilization Procedure performed:: Laparoscopic bilateral cell inject me Surgeon:: Emanuel Ponce MD MEDICAL IMAGING SPECIALIST:: Dustin Crane Anesthesia: GETA Estimated blood loss (mL): 25 Clinical Note:: She is a 25-year-old lady who expressed a desire for sterilization. The risks and benefits of surgery as well as its irreversibility were discussed with the patient prior to surgery. Operative findings:: She had a normal-appearing anteverted uterus. The tubes and ovaries were followed to their fimbriated end and appeared normal. The ovaries appeared normal. The deep pelvis appeared normal. The upper abdomen appeared normal. Operative note:: She was taken to the operating room where general anesthesia was found be adequate. She was prepped and draped in normal sterile fashion in the semilithotomy position. A weighted speculum was placed in the vagina and the anterior lip of the cervix was grasped with a tenaculum. I then inserted a Kathy uterine manipulator into the cervical os. The balloon was then insufflated. I changed gloves and injected 10 cc of 0.5% ropivacaine around her umbilicus and made a small incision within the umbilicus. I inserted a Veress needle into the abdominal cavity. The peritoneal cavity was then insufflated with carbon dioxide gas to a pressure of 20 mmHg. I then inserted a 5 millimeter trocar under direct vision. I injected through and through the pubic hairline, made a small incision here and inserted an 8 mm trocar under direct vision. I identified the inferior epigastric artery on the left side, went lateral to these and injected through and through. I then placed a 5 mm trocar here under direct vision. The pelvis and upper abdomen were then inspected and the findings were as previously dictated. I grasped the right tube at the cornua and using harmonic scalpel on coagulation mode I cut through the tube. I then grasped the distal tube and using harmonic scalpel cut along the mesosalpinx. The tube was removed through 8 mm trocar site. This was similarly performed on the patient's left side. There was a sma ll amount of bleeding on the left cornua and I used laparoscopic hemoclips to obtain excellent hemostasis here. I then injected 30 cc of 0.5% ropivacaine into the pelvis. After assuring hemostasis the gas was let out of the abdomen and hemostasis was once again assured. The abdomen was then reinsufflated. The secondary trochars were removed under direct vision. The gas was let out her abdomen. The primary trocar was then removed. The 8 mm trocar site was closed deeply with 2-0 Vicryl suture followed by subcuticular 4-0 Monocryl suture. The 5 mm trocar sites were closed with subcuticular 4-0 Monocryl. Sterile dressings were applied. The patient tolerated the procedure well and was taken to the recovery room in excellent condition. All sponge instrument and needle counts were correct. The estimated blood loss was less than 25 cc. Condition: stable Disposition: PACU Specimens:: Bilateral fallopian tubes Complications:: None
--- NOTE | 2025-09-23 08:46 | EXP.ANES.I ---
[facility] Anesthesia Record Part I Anesthesia Record I Intake, IV Amount: 950 Hydration: Adequate Estimated blood loss (mL): 25 Urine output (mL): 0 Blood Products used (#): none Blood Pressure: 126/70 SaO2: 100 Pulse Rate: 114 Airway Patency: Patent Respiratory Rate: 22 Temperature: 97.4 F Patient is:: Drowsy and Stable Stable to PACU at:: 08:38
[2025-09-23] MEDS: KETOROLAC 30MG/ML VIAL 30 MG IV (08:56)
--- NOTE | 2025-09-23 09:11 | SUR.PHASEI ---
0909- detailed report given to car hughes in post op. Pt in stable condition. VSS, dressings CDI.
--- NOTE | 2025-09-23 12:45 | EXP.ANES.II ---
[facility] Anesthesia Record Part II Anesthesia Record Part II Discharge Time: 09:39 Destination: Surgical Day Care (OP Surgery) PACU nurse assessment reviewed?: Yes Patient Condition:: Good Anesthesia Complications:: None Swallowing reflex intact?: Yes Airway Patency: Patent Cyanosis?: No Blood Pressure: 102/64 SaO2: 95 Respiratory Rate: 18 Pulse Rate: 85 Temperature: 97.0 F Mental Status: Alert & Oriented Pain level:: 0 Nausea and/or vomitting:: None Intake, IV Amount: 0 Hydration: Adequate
== END 2025-09-23 10:07 | disposition home or self-care (01) ==
PROVIDERS: PCP Pediatrics; Visit Provider Nurse Practitioner Obstetrics & Gynecology
PROC: (CPT 58661; principal; 2025-09-23 07:30)
DX: Z30.2 Encounter for sterilization (principal)
CPT/HCPCS: 58661; 96374; J0690; J1100; J1885; J2003; J2250; J2405; J2704; J2795; J3010; J7120